=== PATIENT | male | born 1940 | race Caucasian/White ===

== ENCOUNTER 2017-07-29 12:53 | Emergency (ER) | payer MEDICARE, OTHER, SELFPAY | END 2017-07-29 15:03 | disposition home or self-care (01) | PROVIDERS: Emergency Provider Emergency Medicine; Family Provider Internal Medicine; PCP Internal Medicine; Visit Provider Emergency Medicine | DX: T82.838A Hemorrhage due to vascular prosthetic devices, implants and grafts, initial encounter (principal); D72.819 Decreased white blood cell count, unspecified; D69.6 Thrombocytopenia, unspecified; Z79.01 Long term (current) use of anticoagulants | CPT/HCPCS: 36415; 36430; 85025; 85610; 86850; 86900; 86901; 86965; 99058; 99283; P9033 ==

== ENCOUNTER → 2017-09-14 09:54 | Outpatient (CLI) | payer MEDICARE, OTHER, SELFPAY | PROVIDERS: Family Provider Internal Medicine; PCP Internal Medicine; Visit Provider Nurse Practitioner Gerontology | DX: C61 Malignant neoplasm of prostate (principal); Z53.9 Procedure and treatment not carried out, unspecified reason ==

== ENCOUNTER → 2017-09-18 08:59 | Outpatient (CLI) | payer MEDICARE, OTHER, SELFPAY ==
[2017-09-18 09:25] LABS: Add Manual Diff / Slide Review NO; Basophils Percent Auto 0.4 % (0-2); Eosinophils Percent Auto 1.1 % (2-4); Hematocrit 26.3 % (41-53); Hemoglobin 9.1 g/dL (13.5-17.5); Lymphocytes Percent Auto 17.3 % (25-40); Mean Corpuscular HGB Conc 34.7 % (30-36); Mean Corpuscular Hemoglobin 33.2 PG (26-34); Mean Corpuscular Volume 95.7 fL (80-100); Monocytes Percent Auto 4.8 % (3-14); Neutrophils Absolute Auto 3700 /uL (3000-5900); Neutrophils Percent Auto 76.4 % (50-75); Platelet Count 66 X10^3/uL (150-400); Red Blood Cell Count 2.74 X10^6/uL (4.5-5.9); Red Cell Distribution Width 14.7 % (11.6-14.8); White Blood Cell Count 4.8 X10^3/uL (4.5-11.0)
[2017-09-18 09:34] LABS: Alanine Aminotransferase 28 IU/L (21-72); Albumin 3.2 g/dL (3.5-5.0); Albumin Globulin Ratio 1.4 (1.0-2.8); Alkaline Phosphatase 66 U/L (38-126); Aspartate Aminotransferase 21 IU/L (17-59); Bilirubin Total 0.8 mg/dL (0.2-1.3); Blood Urea Nitrogen 24 mg/dL (9-20); Calcium 8.7 mg/dL (8.4-10.2); Carbon Dioxide 29 mmol/L (22-32); Chloride 101 mmol/L (98-107); Estimated Glomerular Filt Rate > 60.0 mL/min (>60); Globulin 2.3 g/dL (1.7-4.1); Glucose 183 mg/dL (80-110); HEMOLYSIS < 15 (0-50); Potassium 4.4 mmol/L (3.4-5.1); Sodium 139 mmol/L (137-145); Total Protein 5.5 g/dL (6.3-8.2)
--- NOTE | 2017-09-18 10:07 | PC.NURSE ---
Platelet count 66K.Reviewed with LAB SCIENTIST.Apparently between 50 and 75 K is a matos area for anti-coagulation.Pt to RTC tomm. To see Dr Rosa Harding would like to see platelet count above 75K and pt to have a face to face discussion with MD mcadams ; potential risks in light of thrombocytopenia and as his counts will drop again after his last treatment which is due tomm.PICC line is out.A midline cath could be used in the short term.
== END ==
PROVIDERS: Internal Medicine Hematology & Oncology; Family Provider Internal Medicine; PCP Internal Medicine; Visit Provider Nurse Practitioner Gerontology
DX: C34.90 Malignant neoplasm of unspecified part of unspecified bronchus or lung (principal); D69.6 Thrombocytopenia, unspecified
CPT/HCPCS: 36415; 80053; 85025

== ENCOUNTER 2017-09-24 13:14 | Emergency (ER) | payer MEDICARE, OTHER, SELFPAY ==
[2017-09-24 13:21] VITALS: BP 120/69; PULSE 95; RESP 20; TEMP 37.3; O2SAT 95
--- NOTE | 2017-09-24 13:47 | ED.FEVER ---
HPI - Fever General Chief Complaint: Fever Stated Complaint: WEAK,TEMPERATURE POOSIBLE CLOT IN CALF Time Seen by Provider: 09/24/17 13:44 History of Present Illness HPI Narrative: Patient is a 77-year-old male who presents with fever. Apparently they been taking at home they noted she had low-grade fever of 99-100 nothing over 100.4. 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 He also has and no left upper extremity DVT which they are not treating due to all low platelets. He has no productive cough no shortness of breath over no painful urination. His last chemo was 4 days ago and he also got a Neulasta shot. He has pain in his left lower leg he thinks that it may be a clot. It is really tender just on the varicose vein. No numbness or tingling. He does must be checked out. Related Data Home Medications Medication Instructions Recorded Confirmed carvedilol [Coreg] 25 mg PO BID #0 11/20/10 09/08/17 atorvastatin [Lipitor] 40 mg PO QDAY #0 03/21/17 09/08/17 folic acid 1 mg PO BID #0 04/08/17 09/08/17 ascorbic acid (vitamin C) 1,500 mg PO QDAY #0 06/01/17 09/19/17 calcium carbonate 1,200 mg PO Q DAY #0 06/01/17 09/08/17 cholecalciferol (vitamin D3) 2,000 iu PO QDAY #0 06/01/17 08/08/17 [Vitamin D3] losartan 50 mg PO BID #0 06/01/17 09/08/17 magnesium 200 mg PO Q DAY #0 06/01/17 09/08/17 multivitamin [Multiple Vitamins] 1 tab PO QDAY #0 06/01/17 09/08/17 minoxidil 2.5 mg PO QDAY #0 07/13/17 09/12/17 prednisone 2 mg PO BID #0 07/13/17 09/19/17 Bactrim DS 09/07/17 furosemide [Lasix] 40 mg PO DAILY 09/08/17 09/08/17 methotrexate sodium 10 mg PO QWEEK 09/12/17 09/12/17 Previous Rx's Medication Instructions Recorded abiraterone [Zytiga] 1,000 mg PO QDAY #120 tab 07/17/17 ondansetron [Zofran ODT] 4 mg SUBLINGUAL Q6HP PRN #30 odt 07/17/17 prednisone 5 mg PO BID #120 tab 07/17/17 esomeprazole magnesium [Nexium] 20 mg PO QDAY #30 cap 07/24/17 potassium chloride [K-Tab] 20 meq PO DAILY #30 tab 09/05/17 amoxicillin-pot clavulanate 1 tab PO BID #20 tab 09/24/17 [Augmentin] Allergies Allergy/AdvReac Type Severity Reaction Status Date / Time amlodipine [AMLODIPINE] AdvReac Unknown Verified 09/02/17 09:10 gemfibrozil [GEMFIBROZIL] AdvReac Unknown Verified 09/02/17 09:10 hydrochlorothiazide AdvReac Unknown Verified 09/02/17 09:10 [HYDROCHLOROTHIAZIDE] lisinopril [LISINOPRIL] AdvReac Unknown Verified 09/02/17 09:10 niacin [NIACIN] AdvReac Unknown Verified 09/02/17 09:10 Review of Systems Review of Systems All systems reviewed & are unremarkable except as noted in HPI and below Constitutional Denies body ache(s), Denies chills, Reports fever(s) and Reports weakness Cardiovascular Denies chest pain, Denies irregular heart rhythm, Denies lightheadedness, Denies palpitations, Denies dyspnea, Denies dyspnea on exertion and Denies orthopnea Respiratory Denies cough, Denies dyspnea, Denies dyspnea on exertion and Denies wheezing Gastrointestinal Gastrointestinal: Denies abdominal pain, Denies change in bowel habits, Denies diarrhea, Denies nausea and Denies vomiting Genitourinary Reports hematuria and Reports dysuria Musculoskeletal Denies back pain, Denies muscle weakness, Denies numbness and Denies tingling Integumentary/Breasts Denies pruritus, Denies erythema, Denies rash and Denies wounds Neurologic Denies numbness, Denies tingling and Reports weakness Endocrine Denies palpitations Allergic/Immunologic Denies wheezing Exam Initial Vital Signs Initial Vital Signs: Vital Signs Temperature 99.1 F 09/24/17 13:21 Pulse Rate 95 H 09/24/17 13:21 Respiratory Rate 20 09/24/17 13:21 Blood Pressure 120/69 09/24/17 13:21 Pulse Oximetry 95 09/24/17 13:21 GENERAL: Well-appearing, well-nourished and in no acute distress. HEENT: Head atraumatic,EOMI, pupils reactive, CARDIOVASCULAR: Regular rate and rhythm without murmurs, rubs or gallops. RESPIRATORY: Breath sounds equal bilaterally, no wheezes rales or rhonchi. ABDOMEN: Soft, nontender. Normoactive bowel sounds all 4 quadrants. No guarding or rebound. EXTREMITIES: Normal range of motion, no clubbing or edema. Neurovascularly intact. Left leg it is tender over a varicose vein no significant swelling no calf tenderness NEUROLOGICAL: Alert and oriented x4.Normal gait and speech. Cranial nerves II through XII grossly intact. SKIN: Warm, dry, no laceration, no petechiae, no rashes or lesions. Course Orders Ordered: ED Orders 09/24/17 14:08 XR chest 2V Stat 09/24/17 14:27 CBC [Complete Blood Count AUTO DIFF] Stat CMP [Comprehensive Metabolic Panel] Stat Lactate (Lactic Acid) Stat 09/24/17 14:38 Urine Culture Stat Urine Microscopic Stat 09/24/17 14:55 Blood Culture Stat 09/24/17 15:12 perip venous low extrem lt Stat Discontinued Medications Amoxicillin/Clavulanate Potassium (Augmentin 875-125 Mg) 1 tab PO NOW ONE Stop: 09/24/17 16:38 Last Admin: 09/24/17 16:54 Dose: 1 tab Sodium Chloride (Normal Saline 0.9%) 1,000 mls @ 1,000 mls/hr IV BOLUS ONE Stop: 09/24/17 15:10 Last Infusion: 09/24/17 16:29 Dose: 0 mls/hr Admin: 09/24/17 15:02 Dose: 1,000 mls/hr Vital Signs - 8 hr 09/24/17 13:21 09/24/17 14:38 09/24/17 16:32 Temperature 99.1 F 99.5 F Pulse Rate 95 H 84 94 H Respiratory Rate 20 18 16 Blood Pressure 120/69 Blood Pressure [Right Arm] 138/81 H 121/63 H Pulse Oximetry 95 97 94 09/24/17 17:04 Temperature Pulse Rate 56 L Respiratory Rate 18 Blood Pressure Blood Pressure [Right Arm] 128/63 H Pulse Oximetry 98 MDM - Fever Lab Data Result diagrams: 09/24/17 14:27 06/17/18 14:27 Lab Results 09/24/17 09/24/17 09/24/17 Range/Units 14:27 14:27 14:27 WBC 8.0 (4.5-11.0) X10^3/uL RBC 2.48 L (4.5-5.9) X10^6/uL Hgb 8.3 L (13.5-17.5) g/dL Hct 23.9 L (41-53) % MCV 96.4 (80-100) fL MCH 33.5 (26-34) PG MCHC 34.8 (30-36) % RDW 16.6 H (11.6-14.8) % Plt Count 75 L (150-400) X10^3/uL Neut % (Auto) Not Reportable Lymph % (Auto) Not Reportable Lawrence % (Auto) Not Reportable Eos % (Auto) Not Reportable Baso % (Auto) Not Reportable Total Counted 100 Seg Neutrophils % 88.0 H (38-70) % Band Neutrophils % 4.0 (3-7) % Lymphocytes % (Manual) 7.0 L (25-45) % Monocytes % (Manual) 1.0 L (2-11) % Neutrophils # (Manual) 7360 H (7648-1049) /uL RBC Morphology Not Reportable Anisocytosis 1+ H Sodium 136 L (137-145) mmol/L Potassium 4.1 (3.4-5.1) mmol/L Chloride 98 (98-107) mmol/L Carbon Dioxide 30 (22-32) mmol/L BUN 35 H (9-20) mg/dL Creatinine 0.90 (0.66-1.25) mg/dL Estimated GFR > 60.0 (>60) mL/min BUN/Creatinine Ratio 38.9 H (6-22) Glucose 158 H (80-110) mg/dL Lactate 1.7 (0.7-2.1) mmol/L Calcium 8.3 L (8.4-10.2) mg/dL Total Bilirubin 1.7 H (0.2-1.3) mg/dL AST 17 (17-59) IU/L ALT 27 (21-72) IU/L Alkaline Phosphatase 71 (38-126) U/L Total Protein 5.5 L (6.3-8.2) g/dL Albumin 3.1 L (3.5-5.0) g/dL Globulin 2.4 (1.7-4.1) g/dL Albumin/Globulin Ratio 1.3 (1.0-2.8) Urine RBC (0-5/HPF) Urine WBC (0-5/HPF) Ur Squamous Epith Cells Urine Bacteria (None) Ur Culture Indicated? Micro UA Comment 09/24/17 Range/Units 14:38 WBC (4.5-11.0) X10^3/uL RBC (4.5-5.9) X10^6/uL Hgb (13.5-17.5) g/dL Hct (41-53) % MCV (80-100) fL MCH (26-34) PG MCHC (30-36) % RDW (11.6-14.8) % Plt Count (150-400) X10^3/uL Neut % (Auto) Lymph % (Auto) Lawrence % (Auto) Eos % (Auto) Baso % (Auto) Total Counted Seg Neutrophils % (38-70) % Band Neutrophils % (3-7) % Lymphocytes % (Manual) (25-45) % Monocytes % (Manual) (2-11) % Neutrophils # (Manual) (2172-8867) /uL RBC Morphology Anisocytosis Sodium (137-145) mmol/L Potassium (3.4-5.1) mmol/L Chloride (98-107) mmol/L Carbon Dioxide (22-32) mmol/L BUN (9-20) mg/dL Creatinine (0.66-1.25) mg/dL Estimated GFR (>60) mL/min BUN/Creatinine Ratio (6-22) Glucose (80-110) mg/dL Lactate (0.7-2.1) mmol/L Calcium (8.4-10.2) mg/dL Total Bilirubin (0.2-1.3) mg/dL AST (17-59) IU/L ALT (21-72) IU/L Alkaline Phosphatase (38-126) U/L Total Protein (6.3-8.2) g/dL Albumin (3.5-5.0) g/dL Globulin (1.7-4.1) g/dL Albumin/Globulin Ratio (1.0-2.8) Urine RBC 1-5/hpf (0-5/HPF) Urine WBC 5-10/hpf H (0-5/HPF) Ur Squamous Epith Cells 0-1 /hpf Urine Bacteria Many (>30) H (None) Ur Culture Indicated? Specimen cultured Micro UA Comment Not Reportable Imaging Data Chest x-ray: Radiologist's impression: PROCEDURE: XR CHEST 2V INDICATIONS: fever with lung cancer TECHNIQUE: 2 views of the chest were acquired. COMPARISON: [facility], CHEST 2 VIEW, 08/07/2017, 10:12. FINDINGS: Surgical changes and devices: None. Lungs and pleura: No pleural effusions or pneumothorax. Mild patchy bibasilar and perihilar opacities bilaterally. Mediastinum: Mediastinal contours are normal. Heart size is normal. Bones and chest wall: No suspicious bony abnormalities. Soft tissues appear unremarkable. IMPRESSION: Bilateral pneumonia. Venous US: Radiologist's impression: PROCEDURE: XR CHEST 2V INDICATIONS: fever with lung cancer TECHNIQUE: 2 views of the chest were acquired. COMPARISON: [facility], CHEST 2 VIEW, 08/07/2017, 10:12. FINDINGS: Surgical changes and devices: None. Lungs and pleura: No pleural effusions or pneumothorax. Mild patchy bibasilar and perihilar opacities bilaterally. Mediastinum: Mediastinal contours are normal. Heart size is normal. Bones and chest wall: No suspicious bony abnormalities. Soft tissues appear unremarkable. IMPRESSION: Bilateral pneumonia. [facility] Narrative Medical decision making narrative: Patient is not clinically have pneumonia. He is not actually even had fever. He was weak last night and had been around some sick people of her half. He really feels fine and is asking to go home. He does have a UTI and symptoms it is resistant to Levaquin but sensitive to Augmentin. Patient appears in nontoxic is alert he is oriented he is not neutropenic. He is not hypoxic. Discussed with both and patient warning signs of when to return to the ED. They both understand and agree. He is scheduled to have blood drawn with oncology in 2 days but not scheduled to see a provider. Discharge Plan Departure Patient Disposition: Home, Self-Care Clinical Impression: UTI (urinary tract infection) Discharge Date/Time: 09/24/17 17:05 Interventions: ED Discharge Assessment Last Done: 09/24/17 17:05 Instructions: DI for Urinary Tract Infection (UTI), DI for Neutropenic Fever Activity Restrictions/Additional Instructions: *You have been diagnosed with UTI, possible pneumonia *What to do: You do not have signs and symptoms consistent with pneumonia other your x-ray did show bilateral pneumonia. Urine is also positive for infection. Blood work is reassuring today no sign of neutropenia. *Continue to take medications as directed Augmentin twice a day for 10 days-this has been faxed to [facility] in [place] *Follow up with your primary care provider in 2-3 days, follow up with Oncology, please see a provider this week *Return to ER if you should have increased confusion, increasing weakness, temperature more than 100.4 or any new, worsening or concerning symptoms Prescriptions: New amoxicillin-pot clavulanate [Augmentin] 875-125 mg tablet 1 tab PO BID Qty: 20 RF: 0 No Action carvedilol [Coreg] 25 MG tablet 25 mg PO BID Qty: 0 RF: 0 atorvastatin [Lipitor] 40 MG tablet 40 mg PO QDAY Qty: 0 RF: 0 folic acid 1 MG tablet 1 mg PO BID Qty: 0 RF: 0 losartan 50 MG tablet 50 mg PO BID Qty: 0 RF: 0 magnesium 200 MG tablet 200 mg PO Q DAY Qty: 0 RF: 0 cholecalciferol (vitamin D3) [Vitamin D3] 2,000 UNIT capsule 2,000 iu PO QDAY Qty: 0 RF: 0 multivitamin [Multiple Vitamins] 1 EACH tablet 1 tab PO QDAY Qty: 0 RF: 0 calcium carbonate 600 MG tablet 1,200 mg PO Q DAY Qty: 0 RF: 0 ascorbic acid (vitamin C) 500 MG tablet 1,500 mg PO QDAY Qty: 0 RF: 0 prednisone 1 MG tablet 2 mg PO BID Qty: 0 RF: 0 minoxidil 2.5 MG tablet 2.5 mg PO QDAY Qty: 0 RF: 0 prednisone 5 MG tablet 5 mg PO BID Qty: 120 RF: 2 ondansetron [Zofran ODT] 4 MG tablet,disintegrating 4 mg Sublingual Q6HP PRNQty: 30 RF: 0 abiraterone [Zytiga] 250 MG tablet 1,000 mg PO QDAY Qty: 120 RF: 3 esomeprazole magnesium [Nexium] 20 MG capsule,delayed release(DR/EC) 20 mg PO QDAY Qty: 30 RF: 0 potassium chloride [K-Tab] 20 mEq Tablet Extended Release 20 meq PO DAILY Qty: 30 RF: 0 Bactrim DS RF: 0 furosemide [Lasix] 40 mg Tablet 40 mg PO DAILY RF: 0 methotrexate sodium 2.5 mg Tablet 10 mg PO QWEEK RF: 0
--- NOTE | 2017-09-24 14:08 | DI.RAD.S_ITS ---
PROCEDURE: XR CHEST 2V INDICATIONS: fever with lung cancer TECHNIQUE: 2 views of the chest were acquired. COMPARISON: [facility], , CHEST 2 VIEW, 08/07/2017, 10:12. FINDINGS: Surgical changes and devices: None. Lungs and pleura: No pleural effusions or pneumothorax. Mild patchy bibasilar and perihilar opacities bilaterally. Mediastinum: Mediastinal contours are normal. Heart size is normal. Bones and chest wall: No suspicious bony abnormalities. Soft tissues appear unremarkable. IMPRESSION: Bilateral pneumonia. Dictated by: Lianna Bowen M.D. on 09/24/2017 at 14:45 Approved by: Lianna Bowen M.D. on 09/24/2017 at 14:46
[2017-09-24 14:38] VITALS: BP 138/81; PULSE 84; RESP 18; TEMP 37.5; O2SAT 97
[2017-09-24 14:38] LABS: Hemoglobin 8.3 g/dL (13.5-17.5); Mean Corpuscular HGB Conc 34.8 % (30-36); Mean Corpuscular Hemoglobin 33.5 PG (26-34); Mean Corpuscular Volume 96.4 fL (80-100); Platelet Count 75 X10^3/uL (150-400); Red Blood Cell Count 2.48 X10^6/uL (4.5-5.9); Red Cell Distribution Width 16.6 % (11.6-14.8)
[2017-09-24 14:39] LABS: Add Manual Diff / Slide Review YES; Hematocrit 23.9 % (41-53)
[2017-09-24 14:45] LABS: Lactate (Lactic Acid) 1.7 mmol/L (0.7-2.1)
[2017-09-24 14:46] LABS: Alanine Aminotransferase 27 IU/L (21-72); Albumin 3.1 g/dL (3.5-5.0); Albumin Globulin Ratio 1.3 (1.0-2.8); Alkaline Phosphatase 71 U/L (38-126); Aspartate Aminotransferase 17 IU/L (17-59); BUN Creatinine Ratio 38.9 (6-22); Bilirubin Total 1.7 mg/dL (0.2-1.3); Blood Urea Nitrogen 35 mg/dL (9-20); Calcium 8.3 mg/dL (8.4-10.2); Carbon Dioxide 30 mmol/L (22-32); Chloride 98 mmol/L (98-107); Estimated Glomerular Filt Rate > 60.0 mL/min (>60); Globulin 2.4 g/dL (1.7-4.1); Glucose 158 mg/dL (80-110); HEMOLYSIS < 15 (0-50); Potassium 4.1 mmol/L (3.4-5.1); Sodium 136 mmol/L (137-145); Total Protein 5.5 g/dL (6.3-8.2)
[2017-09-24 14:55] LABS: Bacteria Urine Many (>30); Culture Indicated Urine Specimen Cultured; RBC Urine 1-5/HPF (0-5/HPF); Squamous Epithelial Cell Urine 0-1 /HPF; WBC Urine 5-10/HPF (0-5/HPF)
[2017-09-24] MEDS: SODIUM CHLORIDE 0.9% 1,000 ML 1000 ML IV (15:02)
--- NOTE | 2017-09-24 15:12 | DI.US.S_ITS ---
PROCEDURE: US PERIPH VENOUS LOW EXTREM LT INDICATIONS: pain hx of clot with cancer TECHNIQUE: Real-time imaging, as well as color and pulse Doppler interrogation, were performed of the lower extremity deep veins from the inguinal ligament to the popliteal fossa. COMPARISON: None. FINDINGS: The deep veins are normally compressible, and free of intraluminal thrombus. Color and pulse Doppler demonstrate normal phasic intraluminal flow. There is normal augmentation response to distal compression maneuver. IMPRESSION: No evidence of left lower extremity DVT. Dictated by: Lianna Bowen M.D. on 09/24/2017 at 16:01 Approved by: Lianna Bowen M.D. on 09/24/2017 at 16:01
[2017-09-24 15:15] LABS: Neutrophils Absolute Manual 7360 /uL (3000-5900); Total Cells Counted 100
[2017-09-24 15:18] LABS: Anisocytosis 1+
[2017-09-24 16:32] VITALS: BP 121/63; PULSE 94; RESP 16; O2SAT 94
[2017-09-24] MEDS: AMOXICILLIN/CLAV 875/125 MG 1 TAB PO (16:54)
[2017-09-24 17:04] VITALS: BP 128/63; PULSE 56; RESP 18; O2SAT 98
== END 2017-09-24 17:05 | disposition home or self-care (01) ==
PROVIDERS: Emergency Provider Emergency Medicine; Family Provider Internal Medicine; PCP Internal Medicine
DX: R50.9 Fever, unspecified (principal)
CPT/HCPCS: 36415; 36591; 71046; 80053; 81003; 81015; 83605; 85025; 87040; 87077; 87086; 87186; 93971; 99283

== ENCOUNTER 2017-09-24 18:19 | Inpatient (IN) | payer MEDICARE, OTHER, SELFPAY ==
[2017-09-24] VITALS (9 sets, daily range): BP systolic 109–117; BP diastolic 56–75; PULSE 72–109; RESP 8–28; TEMP 37.6–39.4; O2SAT 90–98; BMI 29.9
--- NOTE | 2017-09-24 18:54 | DI.RAD.S_ITS ---
PROCEDURE: XR CHEST 1V INDICATIONS: Bilateral PNA - interval change? TECHNIQUE: One view of the chest was acquired. COMPARISON: [facility], CR, XR CHEST 2V, 09/24/2017, 14:03. FINDINGS: Surgical changes and devices: None. Lungs and pleura: No pleural effusions or pneumothorax. No change in mild patchy bilateral pulmonary opacities. Mediastinum: Mediastinal contours appear normal. Heart size is enlarged. Bones and chest wall: No suspicious bony lesions. Overlying soft tissues appear unremarkable. IMPRESSION: No change in mild patchy bilateral pneumonia. Dictated by: Lianna Bowen M.D. on 09/24/2017 at 19:17 Approved by: Lianna Bowen M.D. on 09/24/2017 at 19:17
[2017-09-24 19:35] LABS: INR 1.1 (0.9-1.3); Prothrombin Time 12.1 SECONDS (10.1-12.7)
[2017-09-24 19:38] LABS: Hemoglobin 7.3 g/dL (13.5-17.5); Lactate (Lactic Acid) 1.6 mmol/L (0.7-2.1); Mean Corpuscular HGB Conc 34.8 % (30-36); Mean Corpuscular Hemoglobin 33.6 PG (26-34); Mean Corpuscular Volume 96.7 fL (80-100); Platelet Count 65 X10^3/uL (150-400); Red Blood Cell Count 2.17 X10^6/uL (4.5-5.9); White Blood Cell Count 5.5 X10^3/uL (4.5-11.0)
[2017-09-24 19:39] LABS: Add Manual Diff / Slide Review YES; BUN Creatinine Ratio 41.3 (6-22); Bilirubin Total 1.7 mg/dL (0.2-1.3); Blood Urea Nitrogen 33 mg/dL (9-20); Calcium 7.7 mg/dL (8.4-10.2); Carbon Dioxide 26 mmol/L (22-32); Chloride 101 mmol/L (98-107); Estimated Glomerular Filt Rate > 60.0 mL/min (>60); Glucose 206 mg/dL (80-110); HEMOLYSIS < 15 (0-50); Hematocrit 20.9 % (41-53); Sodium 134 mmol/L (137-145)
[2017-09-24 20:27] LABS: Procalcitonin 0.12 ng/mL (<0.5)
[2017-09-24 20:58] LABS: Neutrophils Absolute Manual 5005 /uL (3000-5900); Total Cells Counted 100
[2017-09-24 20:59] LABS: RBC Morphology Normal Morphology
--- NOTE | 2017-09-24 21:06 | ED.FEVER ---
HPI - Fever General Chief Complaint: Fever Stated Complaint: FEVER IS INCREASING HE STATES Time Seen by Provider: 09/24/17 18:54 History of Present Illness HPI Narrative: HPI 77 y/o male with metastatic prostate CA (lung, bone) and lung small cell carcinoma (s/p radiation x 30 and chemo x 4, now complete) presents with worsening weakness and fever after being evaluated earlier in the day for similar but lesser symptoms and was noted to have a possible UTI with questionable bilateral pneumonia (radiographically apparent, no further corroborating symptoms appreciate) and was placed on Augmentin before being discharged. Patient notes that he has been weakened febrile for one day. M/S/F/SocHx notable for: please see HPI; remainder reviewed with patient and in chart. ROS: Negative constitutional, eye, cardiovascular, pulmonary, GI, , MSK, skin, neurologic, psychiatric, endocrine unless noted in the HPI. Exam Gen: pleasant, nontoxic-appearing, appears mildly weak, not in extremis. HEENT: NC, AT, PEERL, EOMI, neck supple, no goiter appreciated. Resp: Clear to auscultation bilaterally, normal work of breathing, no accessory muscle usage. Card: Regular rate and rhythm with no murmurs, rubs, or gallops, extremities warm and well perfused. GI: Non-tender to palpation throughout all quadrants, no focal tenderness at McBurney's point, negative Menendez's sign, non-distended, no rebound or guarding. : No suprapubic tenderness to palpation. MSK: No visible deformities, strength and tone without visually appreciable deficit. Skin: normal color, no visible lesions. Neuro: AOx3, no facial asymmetry, vision and hearing WNL. Psych: Mood and affect appropriate. Labs / Imaging (pertinent): WBC 5.5, segment neutrophils 88%, PLT 65, INR 1.1, Hb 7.3, Na 134, K 4.0, Bilirubin 1.7, Lactate 1.6, troponin pending, procalcitonin 0.12, FOBT pending. UA - many bacteria. CXR: no change in mild patchy bilateral pneumonia. MDM Previous chart, nursing note, labs, imaging, and vitals reviewed. A: 77 y/o male with metastatic prostate CA (lung, bone) and lung small cell carcinoma (s/p radiation x 30 and chemo x 4, now complete) presents with worsening weakness and fever after being evaluated earlier in the day for similar but lesser symptoms and was noted to have a possible UTI with questionable bilateral pneumonia (radiographically apparent, no further corroborating symptoms appreciate) and was placed on Augmentin before being discharged. Evaluation: [Patient meets [facility] sepsis screening guidelines with a suspected urinary versus pulmonary source. Infectious Source: * Pulmonary: bilateral patchy infiltrate on chest x-ray, however patient's without cough or Procalcitonin elevation, this raises the possibility that the patient does not have a bacterial pneumonia. * Urine: UA consistent with colonization versus active infection. * Skin: Consider a cutaneous source unlikely given absence of significant infection appreciated on exam. * [employer]PA[employer] SUPERVISOR: Doubt given the lack of meningismus, petechia, and the overall clinical presentation. * Abdomen: Doubt given the non-tender abdomen and an alternate source. * Spine: Given the absence of back pain and an alternate source further investigation for possible epidural abscess, spinal osteomyelitis, or discitis are not currently warranted. * Lines: Patient without indwelling lines/ports. * Patient with worsening anemia, FOBT pending, type and screen ordered. Transfusion held. Resuscitation: Blood cultures, 30 cc/kg NS fluid bolus, and cefipime and vancomycin ordered with the initial evaluation. Disposition: Admitted for further care. Impression: sepsis, suspected pulmonary versus urinary source. (please reference below for remainder of encounter information) Critical Care Time Organ system(s): Cardiopulmonary, vascular, [employer]PA[employer] SUPERVISOR, Renal Intervention: Assessment of the patient, interpretation of studies, communication related to patient care. Time: 30 minutes were spent directly related to patient care exclusive of separately billed procedures Related Data Home Medications Medication Instructions Recorded Confirmed carvedilol [Coreg] 25 mg PO BID #0 11/20/10 09/08/17 atorvastatin [Lipitor] 40 mg PO QDAY #0 03/21/17 09/08/17 folic acid 1 mg PO BID #0 04/08/17 09/08/17 ascorbic acid (vitamin C) 1,500 mg PO QDAY #0 06/01/17 09/19/17 calcium carbonate 1,200 mg PO Q DAY #0 06/01/17 09/08/17 cholecalciferol (vitamin D3) 2,000 iu PO QDAY #0 06/01/17 08/08/17 [Vitamin D3] losartan 50 mg PO BID #0 06/01/17 09/08/17 magnesium 200 mg PO Q DAY #0 06/01/17 09/08/17 multivitamin [Multiple Vitamins] 1 tab PO QDAY #0 06/01/17 09/08/17 minoxidil 2.5 mg PO QDAY #0 07/13/17 09/12/17 prednisone 2 mg PO BID #0 07/13/17 09/19/17 Bactrim DS 09/07/17 furosemide [Lasix] 40 mg PO DAILY 09/08/17 09/08/17 methotrexate sodium 10 mg PO QWEEK 09/12/17 09/12/17 Previous Rx's Medication Instructions Recorded abiraterone [Zytiga] 1,000 mg PO QDAY #120 tab 07/17/17 ondansetron [Zofran ODT] 4 mg SUBLINGUAL Q6HP PRN #30 odt 07/17/17 prednisone 5 mg PO BID #120 tab 07/17/17 esomeprazole magnesium [Nexium] 20 mg PO QDAY #30 cap 07/24/17 potassium chloride [K-Tab] 20 meq PO DAILY #30 tab 09/05/17 amoxicillin-pot clavulanate 1 tab PO BID #20 tab 09/24/17 [Augmentin] Allergies Allergy/AdvReac Type Severity Reaction Status Date / Time amlodipine [AMLODIPINE] AdvReac Unknown Verified 09/02/17 09:10 gemfibrozil [GEMFIBROZIL] AdvReac Unknown Verified 09/02/17 09:10 hydrochlorothiazide AdvReac Unknown Verified 09/02/17 09:10 [HYDROCHLOROTHIAZIDE] lisinopril [LISINOPRIL] AdvReac Unknown Verified 09/02/17 09:10 niacin [NIACIN] AdvReac Unknown Verified 09/02/17 09:10 Exam Initial Vital Signs Initial Vital Signs: Vital Signs Temperature 102.9 F H 09/24/17 18:43 Pulse Rate 109 H 09/24/17 18:43 Respiratory Rate 20 09/24/17 18:43 Blood Pressure 117/75 09/24/17 18:43 Pulse Oximetry 98 09/24/17 18:43 Course Orders Ordered: ED Orders 09/24/17 14:53 Packed Cells Stat Type and Screen Stat 09/24/17 18:54 XR chest 1V Stat 09/24/17 19:15 Basic Metabolic Panel Stat Bilirubin Total Stat Complete Blood Count AUTO DIFF Stat Lactate (Lactic Acid) Stat Procalcitonin Stat Prothrombin Time INR Stat Discontinued Medications Cefepime HCl 2 gm/ Sodium (Chloride) 100 mls @ 200 mls/hr IV NOW ONE Stop: 09/24/17 18:55 Sodium Chloride (Normal Saline 0.9%) 1,000 mls @ 1,000 mls/hr IV BOLUS ONE Stop: 09/24/17 19:53 Vancomycin HCl 1,500 mg/ (Sodium Chloride) 500 mls @ 333.333 mls/hr IV NOW ONE Stop: 09/24/17 18:55 Vital Signs - 8 hr 09/24/17 18:43 09/24/17 20:29 09/24/17 21:02 Temperature 102.9 F H 99.7 F H Pulse Rate 109 H 96 H Respiratory Rate 20 8 L Blood Pressure 117/75 Blood Pressure [Right Arm] 112/65 Pulse Oximetry 98 96 MDM - Fever Lab Data Result diagrams: 09/24/17 19:15 09/24/17 19:15 Lab Results 09/24/17 09/24/17 09/24/17 Range/Units 14:53 19:15 19:15 WBC 5.5 (4.5-11.0) X10^3/uL RBC 2.17 L (4.5-5.9) X10^6/uL Hgb 7.3 L (13.5-17.5) g/dL Hct 20.9 L* (41-53) % MCV 96.7 (80-100) fL MCH 33.6 (26-34) PG MCHC 34.8 (30-36) % RDW 16.0 H (11.6-14.8) % Plt Count 65 L (150-400) X10^3/uL Neut % (Auto) Not Reportable Lymph % (Auto) Not Reportable [place] % (Auto) Not Reportable Eos % (Auto) Not Reportable Baso % (Auto) Not Reportable Total Counted 100 Seg Neutrophils % 85.0 H (38-70) % Band Neutrophils % 6.0 (3-7) % Lymphocytes % (Manual) 8.0 L (25-45) % Monocytes % (Manual) 1.0 L (2-11) % Neutrophils # (Manual) 5005 (3844-2971) /uL RBC Morphology Normal morphology PT 12.1 (10.1-12.7) SECONDS INR 1.1 (0.9-1.3) Sodium (137-145) mmol/L Potassium (3.4-5.1) mmol/L Chloride (98-107) mmol/L Carbon Dioxide (22-32) mmol/L BUN (9-20) mg/dL Creatinine (0.66-1.25) mg/dL Estimated GFR (>60) mL/min BUN/Creatinine Ratio (6-22) Glucose (80-110) mg/dL Lactate (0.7-2.1) mmol/L Calcium (8.4-10.2) mg/dL Total Bilirubin (0.2-1.3) mg/dL Procalcitonin (<0.5) ng/mL Blood Type O Positive Antibody Screen Negative Crossmatch See Detail 09/24/17 09/24/17 09/24/17 Range/Units 19:15 19:15 19:15 WBC (4.5-11.0) X10^3/uL RBC (4.5-5.9) X10^6/uL Hgb (13.5-17.5) g/dL Hct (41-53) % MCV (80-100) fL MCH (26-34) PG MCHC (30-36) % RDW (11.6-14.8) % Plt Count (150-400) X10^3/uL Neut % (Auto) Lymph % (Auto) [place] % (Auto) Eos % (Auto) Baso % (Auto) Total Counted Seg Neutrophils % (38-70) % Band Neutrophils % (3-7) % Lymphocytes % (Manual) (25-45) % Monocytes % (Manual) (2-11) % Neutrophils # (Manual) (9139-5259) /uL RBC Morphology PT (10.1-12.7) SECONDS INR (0.9-1.3) Sodium 134 L (137-145) mmol/L Potassium 4.0 (3.4-5.1) mmol/L Chloride 101 (98-107) mmol/L Carbon Dioxide 26 (22-32) mmol/L BUN 33 H (9-20) mg/dL Creatinine 0.80 (0.66-1.25) mg/dL Estimated GFR > 60.0 (>60) mL/min BUN/Creatinine Ratio 41.3 H (6-22) Glucose 206 H (80-110) mg/dL Lactate 1.6 (0.7-2.1) mmol/L Calcium 7.7 L (8.4-10.2) mg/dL Total Bilirubin 1.7 H (0.2-1.3) mg/dL Procalcitonin 0.12 (<0.5) ng/mL Blood Type Antibody Screen Crossmatch Discharge Plan Departure Prescriptions: No Action carvedilol [Coreg] 25 MG tablet 25 mg PO BID Qty: 0 RF: 0 atorvastatin [Lipitor] 40 MG tablet 40 mg PO QDAY Qty: 0 RF: 0 folic acid 1 MG tablet 1 mg PO BID Qty: 0 RF: 0 losartan 50 MG tablet 50 mg PO BID Qty: 0 RF: 0 magnesium 200 MG tablet 200 mg PO Q DAY Qty: 0 RF: 0 cholecalciferol (vitamin D3) [Vitamin D3] 2,000 UNIT capsule 2,000 iu PO QDAY Qty: 0 RF: 0 multivitamin [Multiple Vitamins] 1 EACH tablet 1 tab PO QDAY Qty: 0 RF: 0 calcium carbonate 600 MG tablet 1,200 mg PO Q DAY Qty: 0 RF: 0 ascorbic acid (vitamin C) 500 MG tablet 1,500 mg PO QDAY Qty: 0 RF: 0 prednisone 1 MG tablet 2 mg PO BID Qty: 0 RF: 0 minoxidil 2.5 MG tablet 2.5 mg PO QDAY Qty: 0 RF: 0 prednisone 5 MG tablet 5 mg PO BID Qty: 120 RF: 2 ondansetron [Zofran ODT] 4 MG tablet,disintegrating 4 mg Sublingual Q6HP PRNQty: 30 RF: 0 abiraterone [Zytiga] 250 MG tablet 1,000 mg PO QDAY Qty: 120 RF: 3 esomeprazole magnesium [Nexium] 20 MG capsule,delayed release(DR/EC) 20 mg PO QDAY Qty: 30 RF: 0 potassium chloride [K-Tab] 20 mEq Tablet Extended Release 20 meq PO DAILY Qty: 30 RF: 0 Bactrim DS RF: 0 furosemide [Lasix] 40 mg Tablet 40 mg PO DAILY RF: 0 methotrexate sodium 2.5 mg Tablet 10 mg PO QWEEK RF: 0 amoxicillin-pot clavulanate [Augmentin] 875-125 mg tablet 1 tab PO BID Qty: 20 RF: 0
[2017-09-24] MEDS: SODIUM CHLORIDE 0.9% 1,000 ML 1000 ML IV (21:09)
[2017-09-24] MEDS: CEFEPIME 2 GM in SODIUM CHLORIDE 0.9% 100 ML 200 ML IV (21:10)
[2017-09-24] MEDS: VANCOMYCIN 1,500 MG in SODIUM CHLORIDE 0.9% 500 ML 333.333 ML IV (22:01)
--- NOTE | 2017-09-24 23:09 | PC.NURSE ---
Pt to room from ER. Generalized weakness. Able to stand pivot transfer to bed. Pt S.O. at bedside, able to assist with admission question. Pt 91% on RA. Hx of sleep apnea, placed on 2L. Temp 100.6 orally. Oriented to room and routine, Call light in reach.
[2017-09-25] VITALS (19 sets, daily range): BP systolic 94–142; BP diastolic 41–67; PULSE 78–876; RESP 16–22; TEMP 36.9–38.6; O2SAT 92–96; BMI 29.9
--- NOTE | 2017-09-25 | DI.CT.S_ITS ---
PROCEDURE: CT CHEST WO CON INDICATIONS: pneumonia, lung cancer TECHNIQUE: Noncontrast 5 mm thick sections acquired from the pulmonary apices to the posterior costophrenic angles. 7 mm thick coronal and sagittal MIP reformats were then acquired. For radiation dose reduction, the following was used: automated exposure control, adjustment of mA and/or kV according to patient size. COMPARISON: [facility], [place], CT [place], 08/01/2017, 15:58. [facility], [place], PET NECK TO MID THIGH, 07/28/2017, 9:54. [facility], [place], CT [place], 07/11/2017, 11:12. [facility], CT, CHEST/ABD/PEL WITH CONTRAST, 07/10/2017, 9:19. [place], [place], BONE SCAN WHOLE BODY, 05/25/2017, 12:54. [facility], CT, CHEST/ABD/PEL WITH CONTRAST, 05/25/2017, 10:54. FINDINGS: Image quality: Diagnostic. Lungs and pleura: There is a very small left-sided pleural effusion. No significant right-sided pleural effusion is identified. The patient's known right lingular mass is not clearly evident on the current examination. However, there are areas of mild consolidation within the lingula with additional areas of tree in bud nodularity. A similar appearance is noted involving anterior lower aspect of the right upper lobe. There also is a similar appearance evident within the left lower lobe. No new lung masses are evident. There is no pneumothorax. Mediastinum: Heart size is normal. No pericardial effusion. No mediastinal adenopathy by size criteria. Thoracic aorta and central pulmonary arteries are normal in size. Coronary and aortic atherosclerosis is noted. Esophagus is normal in caliber. There is a small hiatal hernia.. Bones and chest wall: Prominent sclerosis is identified involving the right side of scapula, including the glenoid and the acromion. No definite additional areas of bone sclerosis are evident. No vertebral body compression fractures. No axillary or supraclavicular adenopathy by size criteria. Thyroid gland is not enlarged. Abdomen: The included portions of the upper abdomen are similar to the previous exams. No perinephric edema is incidentally noted. There is diagnostic IMPRESSION: 1. Patient's known uterine mass is not readily apparent on this examination, which likely is related to interval decrease in size of this mass and may be partly obscured by adjacent atelectasis. No new lung masses or definite nodules. 2. Ground glass attenuation with tree in bud nodularity within the right upper lobe and lingula is suspicious for an atypical pneumonia. 3. Trace left-sided pleural effusion. 4. Sclerosis of the right scapula is suggestive of metastatic disease. No additional areas of bony sclerosis. 5. Small hiatal hernia. 6. Coronary and aortic atherosclerosis. Dictated by: Sundar Bishop M.D. on 09/25/2017 at 9:56 Approved by: Sundar Bishop M.D. on 09/25/2017 at 10:06
--- NOTE | 2017-09-25 06:52 | PC.NURSE ---
Patient dozed intermittently throughout night, Temp 99.8 and 99.4, skin moist, pale. SR 80s-90s, RR 16-24, SpO2 >92% on 2L, no cough or respiratory distress. Vancomycin infused. Notified Dr Aguilera at 0630 when SO brought in patient's own Zytiga and requested that he be able to take it before breakfast. Order obtained for patient's own med allow with Tylenol for headache and a regular diet.
[2017-09-25] MEDS: ACETAMINOPHEN 325 MG TABLET 650 MG PO ×2 (07:49→16:14)
[2017-09-25] MEDS: ABIRATERONE PO (08:05)
[2017-09-25] MEDS: ASCORBIC ACID 500 MG TABLET 1500 MG PO (09:40)
[2017-09-25] MEDS: CHOLECALCIFEROL (VITAMIN D3) 1,000 UNIT TABLET 1000 UNIT PO (09:41)
[2017-09-25] MEDS: MAGNESIUM OXIDE 400 MG TABLET 200 MG PO (09:41)
[2017-09-25] MEDS: CARVEDILOL 25 MG TABLET PO (09:41)
[2017-09-25] MEDS: CALCIUM CARBONATE 600 MG TABLET 1200 MG PO (09:41)
[2017-09-25] MEDS: predniSONE 5 MG TABLET PO ×2 (09:41→21:41)
[2017-09-25] MEDS: MULTIVITAMIN 1 TABLET 1 TAB PO (09:41)
[2017-09-25] MEDS: FOLIC ACID 1 MG TABLET PO (09:41)
--- NOTE | 2017-09-25 09:43 | P.HP_ITS ---
History of Present Illness Date Patient Seen: 09/25/17 Time Patient Seen: 09:32 Chief complaint: FEVER IS INCREASING HE STATES Narrative: 77-year-old male with it is small cell lung cancer and now metastatic prostate cancer presents with fever cough and recent history of urinary infection. He last received chemotherapy around the 19 of September. He started having fever feeling weak and came into the emergency room then developed symptoms of a cough once once he was here. He was on antibiotics in the last few weeks on 2 different occasions for urinary infection he has also had increasing urinary symptoms over the past 24 hr of burning and difficulty with urination. Patient History Medical History 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) Thrombocytopenia (Chronic) Leukopenia (Chronic) Small cell lung cancer (Chronic) UTI (urinary tract infection) (Chronic) Kidney stone (Acute) Family & Social History Social History: household members significant other Prior Living Arrangements Apartment/Condo Safety & Behavioral: Feels Safe in Current Yes Environment Been Physically Hurt or No Threatened By a Person Suicidal Ideation Description None Suicide Plan Description No Plan Tobacco & Substance use: Tobacco type cigarettes Smoking Status Former smoker alcohol intake never Substance Use Type does not use Meds Home Medications Medication Instructions Recorded Confirmed Type carvedilol [Coreg] 25 mg PO BID #0 11/20/10 09/24/17 History atorvastatin [Lipitor] 40 mg PO QDAY #0 03/21/17 09/24/17 History folic acid 1 mg PO BID #0 04/08/17 09/24/17 History ascorbic acid (vitamin C) 1,500 mg PO QDAY #0 06/01/17 09/24/17 History calcium carbonate 1,200 mg PO Q DAY #0 06/01/17 09/24/17 History cholecalciferol (vitamin D3) 2,000 iu PO QDAY #0 06/01/17 09/24/17 History [Vitamin D3] magnesium 200 mg PO Q DAY #0 06/01/17 09/24/17 History multivitamin [Multiple Vitamins] 1 tab PO QDAY #0 06/01/17 09/25/17 History abiraterone [Zytiga] 1,000 mg PO QDAY #120 tab 07/17/17 09/24/17 Rx prednisone 5 mg PO BID #120 tab 07/17/17 09/24/17 Rx potassium chloride [K-Tab] 20 meq PO DAILY #30 tab 09/05/17 09/24/17 Rx furosemide [Lasix] 40 mg PO DAILY PRN 09/08/17 09/24/17 History methotrexate sodium 10 mg PO QWEEK 09/12/17 09/24/17 History amoxicillin-pot clavulanate 1 tab PO BID #20 tab 09/24/17 09/24/17 Rx [Augmentin] ondansetron [Zofran ODT] 4 mg SUBLINGUAL Q6HP PRN 09/24/17 09/24/17 History Allergies Allergy/AdvReac Type Severity Reaction Status Date / Time niacin [NIACIN] AdvReac Severe Hypotension Verified 09/24/17 22:50 amlodipine [AMLODIPINE] AdvReac Unknown Verified 09/02/17 09:10 gemfibrozil [GEMFIBROZIL] AdvReac Unknown Verified 09/02/17 09:10 hydrochlorothiazide AdvReac Unknown Verified 09/02/17 09:10 [HYDROCHLOROTHIAZIDE] lisinopril [LISINOPRIL] AdvReac Unknown Verified 09/02/17 09:10 Review of Systems Review of Systems All systems reviewed & are unremarkable except as noted in HPI and below Exam Vital Signs (past 8 hours): Vital Signs - 8 hr 3 09/25/17 05:40 09/25/17 06:05 09/25/17 08:14 Temperature 99.4 F 98.6 F Pulse Rate 80 81 82 Respiratory Rate 16 18 18 Blood Pressure 129/64 H 131/59 H Pulse Oximetry 94 92 95 Pulse Oximetry 95 Oxygen Delivery Method Nasal Cannula Oxygen Flow Rate 2 Narrative Exam Narrative: Pleasant elderly male no acute distress HEENT exam unremarkable mucous membranes moist Neck is supple Lungs some crackles in the bases Heart regular rhythm Abdomen soft nontender Lower extremities no edema Skin warm and dry Neuro exam awake alert speech normal no focal deficits Objective Labs Result Diagrams: 09/24/17 19:15 09/24/17 19:15 Labs: Laboratory Results - last 24 hr 09/24/17 09/24/17 09/24/17 14:53 19:15 19:15 WBC 5.5 RBC 2.17 L Hgb 7.3 L Hct 20.9 L* MCV 96.7 MCH 33.6 MCHC 34.8 RDW 16.0 H Plt Count 65 L Neut % (Auto) Not Reportable Lymph % (Auto) Not Reportable [place] % (Auto) Not Reportable Eos % (Auto) Not Reportable Baso % (Auto) Not Reportable Total Counted 100 Seg Neutrophils % 85.0 H Band Neutrophils % 6.0 Lymphocytes % (Manual) 8.0 L Monocytes % (Manual) 1.0 L Neutrophils # (Manual) 5005 RBC Morphology Normal morphology PT 12.1 INR 1.1 Sodium Potassium Chloride Carbon Dioxide BUN Creatinine Estimated GFR BUN/Creatinine Ratio Glucose Lactate Calcium Total Bilirubin Procalcitonin Nasal Screen MRSA (PCR) Blood Type O Positive Antibody Screen Negative Crossmatch See Detail 09/24/17 09/24/17 09/24/17 19:15 19:15 19:15 WBC RBC Hgb Hct MCV MCH MCHC RDW Plt Count Neut % (Auto) Lymph % (Auto) [place] % (Auto) Eos % (Auto) Baso % (Auto) Total Counted Seg Neutrophils % Band Neutrophils % Lymphocytes % (Manual) Monocytes % (Manual) Neutrophils # (Manual) RBC Morphology PT INR Sodium 134 L Potassium 4.0 Chloride 101 Carbon Dioxide 26 BUN 33 H Creatinine 0.80 Estimated GFR > 60.0 BUN/Creatinine Ratio 41.3 H Glucose 206 H Lactate 1.6 Calcium 7.7 L Total Bilirubin 1.7 H Procalcitonin 0.12 Nasal Screen MRSA (PCR) Blood Type Antibody Screen Crossmatch 09/24/17 22:30 WBC RBC Hgb Hct MCV MCH MCHC RDW Plt Count Neut % (Auto) Lymph % (Auto) [place] % (Auto) Eos % (Auto) Baso % (Auto) Total Counted Seg Neutrophils % Band Neutrophils % Lymphocytes % (Manual) Monocytes % (Manual) Neutrophils # (Manual) RBC Morphology PT INR Sodium Potassium Chloride Carbon Dioxide BUN Creatinine Estimated GFR BUN/Creatinine Ratio Glucose Lactate Calcium Total Bilirubin Procalcitonin Nasal Screen MRSA (PCR) Negative for mrsa Blood Type Antibody Screen Crossmatch Assessment & Plan Plan: Assessment/Plan Narrative: One. Probable pneumonia O2 sat down to 90% on room air symptoms of cough bilateral infiltrates this is complicated by him having small cell cancer and also recently receiving chemotherapy obviously suppressing his white cell count response. He has had a fever. Plan to continue with antibiotics started in the emergency room. 2. Urinary tract infection appears to be recurrent or unsuccessfully treated in the past few weeks he has evidence of urinary infection again Gram-negative bacillus is growing out of the urine plan to continue with the antibiotics started in the emergency room. Await cultures 3. 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 He is on chemotherapy he has leukopenia and thrombocytopenia and anemia. 4. 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 Plan to give him a 2 unit transfusion his hematocrit has dropped down to 20 as baseline is more like 25. 5. Coronary artery disease clinically stable watch this carefully as he is quite anemic 6. Code status patient desires to be full code 7. DVT prophylaxis because of his thrombocytopenia will hold on that for now. Quality VTE Deep Vein Thrombosis/Pulmonary Embolism Present on Admission: No
[2017-09-25] MEDS: CEFEPIME 2 GM in SODIUM CHLORIDE 0.9% 100 ML 200 ML IV ×2 (10:08→21:41)
--- NOTE | 2017-09-25 14:47 | PC.NURSE ---
several attempts at documenting completion of rbc unit #1 - computer having difficulty filing this
--- NOTE | 2017-09-25 14:47 | CM.DPC ---
DCP: assessment: case received, EMR reviewed. Pt is a 77 year old male who admitted last night to care of hospitalist team. PCP: Dr. Cameron Payer: Medicare and [employer] Oncology team at [facility] sees pt for treatment of metastatic prostate cancer and small cell lung carcinoma. UR RN Samantha confirms inpt admissions status. Spoke by phone with director oncology Eugenie Pulliam (ex [phone] early this morning and she reported that she has worked frequently with pt at the clinic and will see him in the hospital today. Met now with pt and his significant other Vanessa Alonso (cell: [phone]). Introduced self and role. Pt is ill, currently being treated for pneumonia and a urinary tract infection. Is also this afternoon receiving blood transfusion, so spoke primarily with Vanessa. Vanessa reports that they are pleased that pt has completed his last chemo treatment (09/19) although he will be on some ongoing oral medications. She says [employer] NURSE Eugenie has been of great help in getting financial assistance to pay for the oncology medications. She notes that pt has only recently started using a 4ww. Would expect that PT will be involved with pt in the hospital once he is able to tolerate same. P: check in with pt and Vanessa as POC unfolds to assist with d/c issues and options as need arises.
--- NOTE | 2017-09-25 16:37 | PC.NURSE ---
Patient having mild shaking- c/o being cold- temp 100.1- asked for and given warm blanket- chills stopped immediately. Dry hackey cough- lungs clear. Significant other Vanessa and patient updated on findings. Vanessa stated patient does not want to tell us about his pains/ other discomfort because he wants to go home. Reviewed plan of care.
[2017-09-25] MEDS: ATORVASTATIN 20 MG TABLET 40 MG PO (21:41)
[2017-09-26] VITALS (7 sets, daily range): BP systolic 125–161; BP diastolic 60–88; PULSE 75–94; RESP 20–22; TEMP 36.6–37.7; O2SAT 92–96
[2017-09-26] MEDS: ACETAMINOPHEN 325 MG TABLET 650 MG PO (03:18)
[2017-09-26 05:19] LABS: Alanine Aminotransferase 19 IU/L (21-72); Albumin 2.9 g/dL (3.5-5.0); Albumin Globulin Ratio 1.1 (1.0-2.8); Alkaline Phosphatase 60 U/L (38-126); Aspartate Aminotransferase 16 IU/L (17-59); BUN Creatinine Ratio 32.2 (6-22); Bilirubin Total 1.9 mg/dL (0.2-1.3); Blood Urea Nitrogen 29 mg/dL (9-20); Calcium 8.2 mg/dL (8.4-10.2); Carbon Dioxide 23 mmol/L (22-32); Chloride 105 mmol/L (98-107); Estimated Glomerular Filt Rate > 60.0 mL/min (>60); Globulin 2.6 g/dL (1.7-4.1); Glucose 175 mg/dL (80-110); HEMOLYSIS < 15 (0-50); Sodium 137 mmol/L (137-145); Total Protein 5.5 g/dL (6.3-8.2)
[2017-09-26 05:25] LABS: Hematocrit 25.4 % (41-53); Hemoglobin 8.8 g/dL (13.5-17.5); Mean Corpuscular HGB Conc 34.7 % (30-36); Mean Corpuscular Hemoglobin 32.2 PG (26-34); Mean Corpuscular Volume 92.9 fL (80-100); Platelet Count 40 X10^3/uL (150-400); Red Blood Cell Count 2.74 X10^6/uL (4.5-5.9); Red Cell Distribution Width 18.7 % (11.6-14.8)
[2017-09-26 05:26] LABS: Add Manual Diff / Slide Review YES
[2017-09-26 05:28] LABS: White Blood Cell Count 1.9 X10^3/uL (4.5-11.0)
[2017-09-26 05:39] LABS: Neutrophils Absolute Manual 1368 /uL (3000-5900); Total Cells Counted 100
[2017-09-26 05:40] LABS: Anisocytosis 1+; Dohle Bodies 2+; Toxic Granulation Present
[2017-09-26] MEDS: ABIRATERONE PO (06:55)
--- NOTE | 2017-09-26 06:58 | PC.NURSE ---
Patient felt like he has more energy Up to chair most of the night, ambulated into BR with walker, wore C-pap intermittently, SpO2 95% RA, Temp 99.5 at midnight, 98.1 after Tylenol given at 0300 per patient request for headache. SR.
--- NOTE | 2017-09-26 08:56 | PM.PN.1 ---
Subjective Date Patient Seen: 09/26/17 Time Patient Seen: 08:56 Interval history: Patient sitting at side of the bed having breakfast with . States he feels much better today. Eager to for discharge. Exam Vital Signs (past 8 hours): Vital Signs - 8 hr 09/26/17 04:18 09/26/17 07:36 Temperature 98.1 F 97.8 F Pulse Rate 94 H 75 Respiratory Rate 20 Blood Pressure 130/60 H 138/71 H Pulse Oximetry 96 92 Pulse Oximetry 92 Oxygen Delivery Method CPAP Oxygen Flow Rate 2 Const General: cooperative, healthy appearing and comfortable Nutritional Appearance: overweight Orientation: alert, awake and oriented x3 HENMT Head: normal to inspection, normocephalic and atraumatic Ears: other (Slightly hard of hearing) Mouth: oral mucosae normal Throat: posterior oropharynx normal Eyes General: appearance normal, both eyes and all related structures Pupils: PERRL and pupil size bilaterally 2.0 EOM: EOM intact bilaterally Neck Neck: normal visual inspection Other: No neck vein distention or lymphadenopathy. No neck pain. Full range of motion in neck. Chest Chest: normal inspection of the chest Resp Effort & Inspection: normal respiratory effort and able to speak in complete sentences Other: Left lower lobe rales present. Otherwise clear to auscultation. No wheezes. Cardio Rate: regular rate and tachycardic Rhythm: regular rhythm Heart Sounds: S1 normal and S2 normal Other: Slightly tachycardic at 105. No rubs, clicks or murmurs. GI Inspection: normal to inspection Palpation: soft Auscultation: normal bowel sounds Other: Nontender. Hemoccult stools negative. Other: Bladder nontender to palpation. Denies dysuria. Back/Spine/Pelvis Back: normal to inspection Skin General: no rashes or lesions noted, dry skin and warm Neuro General: alert, awake and oriented x3 Cognition: normal cognition Speech: speech normal Motor: muscle tone normal throughout Sensory Exam: no sensory deficits noted Extrem General: normal to inspection, capillary refill normal and pedal edema (Trace pitting edema bilateral ankles.) Left lower extremity: lower leg (Varicose veins on left lower leg. Compression stockings in place.) Psych Appearance: grossly normal Speech and Movement: speech and movement normal Mood: congruent mood Affect: normal affect Attitude: cooperative Thought Process: normal Thought Content: normal Judgment: judgment good Objective Labs Result Diagrams: 09/26/17 04:50 09/26/17 04:50 Labs: Laboratory Results - last 24 hr 09/24/17 09/25/17 09/26/17 14:53 08:35 04:50 WBC 1.9 L* D RBC 2.74 L Hgb 8.8 L Hct 25.4 L MCV 92.9 D MCH 32.2 MCHC 34.7 RDW 18.7 H Plt Count 40 L Neut % (Auto) Not Reportable Lymph % (Auto) Not Reportable Mccone % (Auto) Not Reportable Eos % (Auto) Not Reportable Baso % (Auto) Not Reportable Total Counted 100 Seg Neutrophils % 62.0 Band Neutrophils % 10.0 H Lymphocytes % (Manual) 25.0 Monocytes % (Manual) 3.0 Neutrophils # (Manual) 1368 L Toxic Granulation Present H Dohle Bodies 2+ H RBC Morphology Not Reportable Anisocytosis 1+ H Sodium Potassium Chloride Carbon Dioxide BUN Creatinine Estimated GFR BUN/Creatinine Ratio Glucose Calcium Total Bilirubin AST ALT Alkaline Phosphatase Total Protein Albumin Globulin Albumin/Globulin Ratio Blood Type O Positive Antibody Screen Negative Crossmatch See Detail See Detail 09/26/17 04:50 WBC RBC Hgb Hct MCV MCH MCHC RDW Plt Count Neut % (Auto) Lymph % (Auto) Mccone % (Auto) Eos % (Auto) Baso % (Auto) Total Counted Seg Neutrophils % Band Neutrophils % Lymphocytes % (Manual) Monocytes % (Manual) Neutrophils # (Manual) Toxic Granulation Dohle Bodies RBC Morphology Anisocytosis Sodium 137 Potassium 4.0 Chloride 105 Carbon Dioxide 23 BUN 29 H Creatinine 0.90 Estimated GFR > 60.0 BUN/Creatinine Ratio 32.2 H Glucose 175 H Calcium 8.2 L Total Bilirubin 1.9 H AST 16 L ALT 19 L Alkaline Phosphatase 60 Total Protein 5.5 L Albumin 2.9 L Globulin 2.6 Albumin/Globulin Ratio 1.1 Blood Type Antibody Screen Crossmatch Assessment & Plan Plan: Assessment/Plan Narrative: 1. Probable pneumonia: O2 sat remained in the low to mid 90s on room air. He continues to have a dry cough. T-max in the last 24 hr is 100.9. He has remained afebrile overnight. CT from the shows a very mild left-sided pleural effusion, with no new lung masses compared to previous CT. His symptoms of cough and bilateral infiltrates is complicated by him having small cell cancer and also recently receiving chemotherapy obviously suppressing his white cell count response. Plan to continue with IV cefepime at this time at least for another 24 hr before switching to oral antibiotics. We will increase his activity level today. Place on incentive spirometry. 2. Urinary tract infection appears to be recurrent or unsuccessfully treated in the past few weeks he has evidence of urinary tract infection again Gram-negative bacillus E coli, sensitive to cefepime IM. He denies any dysuria at this time. Blood cultures x2 show no growth after 24 hr. I will continue to monitor. 3. 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 He is on chemotherapy he has leukopenia which has worsened with a white count of 1.9. and thrombocytopenia with a platelet count of 40, and anemia. 4. 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 He was transfused with 2 units of packed red blood cells yesterday with a rise in his hemoglobin to 8.8. Will repeat CBC in a.m. Continue to guaiac stools. 5. Coronary artery disease clinically stable watch this carefully as he was quite anemic. 6. Code status patient desires to be full code 7. DVT prophylaxis because of his thrombocytopenia will hold on that until his platelets are at least 50,000.. Quality Quality VTE Deep Vein Thrombosis/Pulmonary Embolism Present on Admission: No
[2017-09-26] MEDS: ASCORBIC ACID 500 MG TABLET 1500 MG PO (09:29)
[2017-09-26] MEDS: CHOLECALCIFEROL (VITAMIN D3) 1,000 UNIT TABLET 1000 UNIT PO (09:30)
[2017-09-26] MEDS: CALCIUM CARBONATE 600 MG TABLET 1200 MG PO (09:30)
[2017-09-26] MEDS: FOLIC ACID 1 MG TABLET PO ×2 (09:30→21:47)
[2017-09-26] MEDS: CARVEDILOL 25 MG TABLET PO ×2 (09:30→21:45)
[2017-09-26] MEDS: predniSONE 5 MG TABLET PO ×2 (09:31→21:47)
[2017-09-26] MEDS: MAGNESIUM OXIDE 400 MG TABLET 200 MG PO (09:31)
[2017-09-26] MEDS: MULTIVITAMIN 1 TABLET 1 TAB PO (09:31)
[2017-09-26] MEDS: POTASSIUM CHLORIDE 20 MEQ TAB PO (09:31)
[2017-09-26] MEDS: SODIUM CHLORIDE 0.9% FLUSH 10 ML IV ×2 (09:32→22:43)
[2017-09-26] MEDS: CEFEPIME 2 GM in SODIUM CHLORIDE 0.9% 100 ML 200 ML IV ×2 (09:33→21:44)
[2017-09-26] MEDS: SODIUM CHLORIDE 0.9% 250 ML 21 ML IV (09:40)
--- NOTE | 2017-09-26 15:05 | PC.NURSE ---
I.S. teaching and administration completed by RDeanaT. per R.T. no need for neb treatments. See R.T. documentation for details.
--- NOTE | 2017-09-26 17:04 | PC.NURSE ---
Patient requested to be left to sleep at change of shift- currently on own cpap mask.
[2017-09-26] MEDS: ATORVASTATIN 20 MG TABLET 40 MG PO (21:46)
[2017-09-27 00:37] VITALS: BP 157/76; PULSE 79; RESP 22; TEMP 37.3; O2SAT 95
[2017-09-27 04:51] VITALS: BP 153/79; PULSE 69; RESP 17; TEMP 36.3; O2SAT 96
[2017-09-27 05:43] LABS: Hematocrit 23.1 % (41-53); Mean Corpuscular HGB Conc 34.7 % (30-36); Mean Corpuscular Hemoglobin 32.4 PG (26-34); Mean Corpuscular Volume 93.4 fL (80-100); Red Blood Cell Count 2.47 X10^6/uL (4.5-5.9); Red Cell Distribution Width 17.3 % (11.6-14.8); White Blood Cell Count 1.2 X10^3/uL (4.5-11.0)
[2017-09-27 05:44] LABS: Add Manual Diff / Slide Review YES
[2017-09-27 05:46] LABS: Platelet Count 26 X10^3/uL (150-400)
[2017-09-27 06:20] LABS: Dohle Bodies 2+; Neutrophils Absolute Manual 624 /uL (3000-5900); Total Cells Counted 100; Toxic Vacuolation Present
[2017-09-27 06:21] LABS: Anisocytosis 1+
[2017-09-27] MEDS: ABIRATERONE PO (06:38)
[2017-09-27 07:27] VITALS: BP 113/74; PULSE 89; RESP 18; TEMP 36.6; O2SAT 96
[2017-09-27] MEDS: predniSONE 5 MG TABLET PO (08:13)
[2017-09-27] MEDS: CARVEDILOL 25 MG TABLET PO (08:13)
[2017-09-27] MEDS: CHOLECALCIFEROL (VITAMIN D3) 1,000 UNIT TABLET 1000 UNIT PO (08:13)
[2017-09-27] MEDS: FOLIC ACID 1 MG TABLET PO (08:13)
[2017-09-27] MEDS: CALCIUM CARBONATE 600 MG TABLET 1200 MG PO (08:13)
[2017-09-27] MEDS: MULTIVITAMIN 1 TABLET 1 TAB PO (08:13)
[2017-09-27] MEDS: ASCORBIC ACID 500 MG TABLET 1500 MG PO (08:13)
[2017-09-27] MEDS: MAGNESIUM OXIDE 400 MG TABLET 200 MG PO (08:13)
[2017-09-27] MEDS: POTASSIUM CHLORIDE 20 MEQ TAB PO (08:13)
[2017-09-27] MEDS: SODIUM CHLORIDE 0.9% FLUSH 10 ML IV (08:14)
[2017-09-27] MEDS: CEFEPIME 2 GM in SODIUM CHLORIDE 0.9% 100 ML 200 ML IV (08:14)
[2017-09-27] MEDS: ACETAMINOPHEN 325 MG TABLET 650 MG PO (10:30)
--- NOTE | 2017-09-27 11:11 | PM.DS.1 ---
History of Present Illness Date Patient Seen: 09/27/17 Time Patient Seen: 11:11 Chief complaint: FEVER IS INCREASING HE STATES Narrative: 77-year-old male with it is small cell lung cancer and now metastatic prostate cancer presents with fever cough and recent history of urinary infection. He last received chemotherapy around the 19 of September. He started having fever feeling weak and came into the emergency room then developed symptoms of a cough once once he was here. He was on antibiotics in the last few weeks on 2 different occasions for urinary infection he has also had increasing urinary symptoms over the past 24 hr of burning and difficulty with urination. Discharge Providers Date of admission: 09/24/17 21:37 Primary care physician: Gurdeep Cameron MD Consults: 09/24/17 21:08 Consult to Physician Routine Comment: Consulting Provider: Amos Aguilera Reason for consultation: sepsis 09/24/17 23:04 Consult to Dietitian, Adult Routine Comment: Reason For Exam: assessed at high risk Discharge provider: SID Canchola Summary Discharge Diagnosis: 1. Metastatic malignant neoplasm to prostate. 2. 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 3. Thrombocytopenia 4. Leukopenia 5. Small-cell lung cancer 6. Urinary tract infection 7. Atypical pneumonia probable bacterial. Hospital Course: This is a summary for 3 day hospitalization for this pleasant 77-year-old patient who was admitted with atypical pneumonia, and urinary tract infection. As noted in his history of previous illness he is also being treated for small cell lung cancer and metastatic prostate cancer which is being followed by Dr. Ramon Lee. Patient had probable pneumonia with sats down into the 90s on room air and had a cough as well. He was also being treated for urinary tract infection as an outpatient. He reports having a fever in the past and his T-max during this hospitalization was 101.4. He has been afebrile for more than 24 hr. The patient was started on cefepime x2 g IV q.12 hours, and managed with his other outpatient medications. His chest CT showed ground-glass attenuation with the tree-in-bud nodularity in the right upper lobe and lingula suspicious for atypical pneumonia. There is a trace left-sided pleural effusion. A vascular ultrasound of the lower extremity left side revealed no evidence of DVT. He had 2 blood cultures done which revealed no growth after 48 hr. His urine culture showed E coli sensitive to cefepime IM and Keflex. During his hospitalization he continued to developed more profound leukopenia with his white count decreasing to 1.2, and thrombocytopenia with a platelet count of 26. He received his final session of chemotherapy approximately 1 week ago. There is no signs of occult or active bleeding. After discussing the case with Dr. Lee this morning it was felt that the patient could be discharged with follow-up on Monday in his office. Patient has been instructed to avoid activities that may have risk of injury or cutting himself, as well as to be seen if he develops any bleeding. He will be continued on oral Keflex for an additional 7 days, as well as azithromycin for coverage of his atypical bacteria pneumonia. Status at Discharge Functional status at discharge: independent ambulation Overall status at discharge: patient is progressing back to baseline Time Spent with Patient Greater than 30 minutes Exam Vital Signs (past 8 hours): Vital Signs - 8 hr 09/27/17 04:51 09/27/17 07:27 Temperature 97.4 F L 97.9 F Pulse Rate 69 89 Respiratory Rate 17 18 Blood Pressure 153/79 H 113/74 Pulse Oximetry 96 96 Pulse Oximetry 96 Oxygen Delivery Method Room Air Oxygen Flow Rate 2 Objective Labs Result Diagrams: 09/27/17 04:49 09/26/17 04:50 Labs: Laboratory Results - last 24 hr 09/27/17 04:49 WBC 1.2 L* RBC 2.47 L Hgb 8.0 L Hct 23.1 L MCV 93.4 MCH 32.4 MCHC 34.7 RDW 17.3 H Plt Count 26 L* Neut % (Auto) Not Reportable Lymph % (Auto) Not Reportable [place] % (Auto) Not Reportable Eos % (Auto) Not Reportable Baso % (Auto) Not Reportable Total Counted 100 Seg Neutrophils % 45.0 Band Neutrophils % 7.0 Lymphocytes % (Manual) 44.0 Monocytes % (Manual) 2.0 Eosinophils % (Manual) 2.0 Neutrophils # (Manual) 624 L Toxic Vacuolation Present H Dohle Bodies 2+ H RBC Morphology Not Reportable Anisocytosis 1+ H PROCEDURE: CT CHEST WO CON INDICATIONS: pneumonia, lung cancer TECHNIQUE: Noncontrast 5 mm thick sections acquired from the pulmonary apices to the posterior costophrenic angles. 7 mm thick coronal and sagittal MIP reformats were then acquired. For radiation dose reduction, the following was used: automated exposure control, adjustment of mA and/or kV according to patient size. COMPARISON: [facility], CT, CT [place], 08/01/2017, 15:58. [place], [place], PET NECK TO MID THIGH, 07/28/2017, 9:54. [facility], CT, CT [place], 07/11/2017, 11:12. [facility], CT, CHEST/ABD/PEL WITH CONTRAST, 07/10/2017, 9:19. [place], [place], BONE SCAN WHOLE BODY, 05/25/2017, 12:54. [facility], CT, CHEST/ABD/PEL WITH CONTRAST, 05/25/2017, 10:54. FINDINGS: Image quality: Diagnostic. Lungs and pleura: There is a very small left-sided pleural effusion. No significant right-sided pleural effusion is identified. The patient's known right lingular mass is not clearly evident on the current examination. However, there are areas of mild consolidation within the lingula with additional areas of tree in bud nodularity. A similar appearance is noted involving anterior lower aspect of the right upper lobe. There also is a similar appearance evident within the left lower lobe. No new lung masses are evident. There is no pneumothorax. Mediastinum: Heart size is normal. No pericardial effusion. No mediastinal adenopathy by size criteria. Thoracic aorta and central pulmonary arteries are normal in size. Coronary and aortic atherosclerosis is noted. Esophagus is normal in caliber. There is a small hiatal hernia.. Bones and chest wall: Prominent sclerosis is identified involving the right side of scapula, including the glenoid and the acromion. No definite additional areas of bone sclerosis are evident. No vertebral body compression fractures. No axillary or supraclavicular adenopathy by size criteria. Thyroid gland is not enlarged. Abdomen: The included portions of the upper abdomen are similar to the previous exams. No perinephric edema is incidentally noted. There is diagnostic IMPRESSION: 1. Patient's known uterine mass is not readily apparent on this examination, which likely is related to interval decrease in size of this mass and may be partly obscured by adjacent atelectasis. No new lung masses or definite nodules. 2. Ground glass attenuation with tree in bud nodularity within the right upper lobe and lingula is suspicious for an atypical pneumonia. 3. Trace left-sided pleural effusion. 4. Sclerosis of the right scapula is suggestive of metastatic disease. No additional areas of bony sclerosis. 5. Small hiatal hernia. 6. Coronary and aortic atherosclerosis. Dictated by: Sundar Bishop M.D. on 09/25/2017 at 9:56 Approved by: Sundar Bishop M.D. on 09/25/2017 at 10:06 PROCEDURE: US PERIPH VENOUS LOW EXTREM LT INDICATIONS: pain hx of clot with cancer TECHNIQUE: Real-time imaging, as well as color and pulse Doppler interrogation, were performed of the lower extremity deep veins from the inguinal ligament to the popliteal fossa. COMPARISON: None. FINDINGS: The deep veins are normally compressible, and free of intraluminal thrombus. Color and pulse Doppler demonstrate normal phasic intraluminal flow. There is normal augmentation response to distal compression maneuver. IMPRESSION: No evidence of left lower extremity DVT. Dictated by: Lianna Bowen M.D. on 09/24/2017 at 16:01 Approved by: Lianna Bowen M.D. on 09/24/2017 at 16:01 Discharge Plan Discharge Plan Patient Disposition: Home, Self-Care Discharge comment: Patient will need to have CBC with Diff drawn prior to seeing oncology this Monday. Provider Discharge Instructions Diet: Regular Activity: As tolerated, avoid activities that would cause injury as he is very susceptible to bleeding. Discharge Data Primary Care Provider: Gurdeep Cameron V Attending Provider: Amos Aguilera Admit Date/Time: 09/24/17 21:37 Quality VTE Deep Vein Thrombosis/Pulmonary Embolism Present on Admission: No
--- NOTE | 2017-09-27 11:31 | CM.DPC ---
DCP: Continued: SID Moore is finalizing d/c home orders for pt. Pt and Vanessa will be following up with oncology for further treatment as an outpt.
--- NOTE | 2017-09-27 11:36 | ONC.NAV ---
Description: Check-in/Discharge Plan Coordination Activity: Met with pt/Vanessa to check-in regarding pt's status, comfort, and plan for discharge. He is actually being discharged today, with the plan of continuing oral antibiotics at home. He reports feeling much better, however continues to also feel very weak. He's hopeful to be strong enough to go sailing tomorrow, which is his primary source of quality of life. Discussed what they had been told by Dr. Aguilera; that he had spoken with Dr. Lee, and would like pt to be seen for f/u in Oncology by a provider this coming Monday. He is already scheduled for labs that day at 10:30. This [employer] agreed to speak with our schedulers to see what we can do, then f/u with Vanessa with a plan. *Spoke with ONC schedulers. SID Abebe, has an opening on Monday at 10:30am. [employer] has sent her an email asking if we can add Nahun onto her schedule. She will be in tomorrow, and we will confirm appointment time with both her/pt.
== END 2017-09-27 12:53 | disposition home or self-care (01) | DRG 194 ==
LOC: ED 21:07 → ICU 21:42
PROVIDERS: Nurse Practitioner Acute Care; Admitting Provider Internal Medicine; Emergency Provider Emergency Medicine; Family Provider Internal Medicine; PCP Internal Medicine; Visit Provider Internal Medicine
DX: J15.9 Unspecified bacterial pneumonia (principal); N39.0 Urinary tract infection, site not specified; C79.51 Secondary malignant neoplasm of bone; C34.90 Malignant neoplasm of unspecified part of unspecified bronchus or lung; C61 Malignant neoplasm of prostate; D64.81 Anemia due to antineoplastic chemotherapy; T45.1X5A Adverse effect of antineoplastic and immunosuppressive drugs, initial encounter; D63.0 Anemia in neoplastic disease; D69.59 Other secondary thrombocytopenia; D70.1 Agranulocytosis secondary to cancer chemotherapy
CPT/HCPCS: 36415; 36430; 36591; 71045; 71046; 71250; 80048; 80053; 81003; 81015; 82247; 83605; 84145; 85025; 85610; 86850; 86900; 86901; 87040; 87077; 87086; 87186; 87797; 93971; 94762; 96361; 96365; 96366; 96367; 96372; 96375; 96413; 99283; 99284; 99285; P9016; J0692; J1100; J2405; J2505; J9181

== ENCOUNTER → 2017-09-29 10:02 | Outpatient (CLI) | payer MEDICARE, OTHER, SELFPAY ==
[2017-09-24 22:51] VITALS: BMI 29.9
--- NOTE | 2017-09-29 08:29 | P.PNONC_ITS ---
Assessment and Plan (1) Metastatic malignant neoplasm to prostate Current visit: No Status: Chronic 09/29/17 17:33 Nahun is a 77-year-old male who on September 19 completed chemotherapy in the form of carboplatin and etoposide for treatment of high risk prostate cancer, metastatic with a [place] score of 9. He also has small cell lung carcinoma, limited disease. He was hospitalized September 25 through September 27 for atypical bacterial pneumonia. Treated with IV cefepime. Blood cultures negative. Urine culture negative. Presents today for hospital follow-up. Reports he is feeling better today than at time of discharge. No acute complaints whatsoever however he does have chronic fatigue, weakness, malaise. He denies cough, fever, chills. No dysuria , no hematuria. No nausea, no belly pain. No unexplained bleeding or bruising. He does have cytopenias today with a white count of 0.9 hemoglobin 8.2 hematocrit 23.7 platelets 13. He has no more planned chemotherapy. Currently at his mary. I expect these counts to begin coming up. He is asymptomatic he remains on oral antibiotic. We will follow closely. Exam largely unremarkable for any acute issues today. He has an appointment early next week with Dr. Lee. pt has been instructed to return sooner or present immediately to the emergency department for any acute changes. Both he and his verbalize understanding. - Time Spent with Patient 10 mins reviewing hospital notes 25 mins w pt 10 mins in dictation PN -Subjective Interval history: Nahun is a 77-year-old male with concurrent high risk prostate cancer, [place] score 9 and small cell lung cancer, limited disease. He presents today for hospital follow-up, he was admitted to [facility] September 25 discharged September 27 with discharge diagnosis of atypical bacterial pneumonia, urinary tract infection, thrombocytopenia, leukopenia, non-small cell lung cancer, metastatic prostate cancer to bone. The patient had received his 4th and final chemotherapy September 19, 2017. His chemotherapy regimen consisted of standard carboplatin etoposide chemotherapy. Additionally he was receiving consolidative chest radiation therapy. He presented to emergency department September 25 with fever and cough also weakness and malaise. He had been treating with oral antibiotics. Bilateral infiltrates were identified on imaging. He had fever. He was subsequently admitted to the hospital. He required 2 units of packed red blood cells, hematocrit had dropped to 20. Patient was treated with cefepime. Two blood cultures demonstrated no growth. Urine culture grew E coli with good sensitivities. Platelets were as low as 26. He was discharged on oral Keflex also azithromycin. On exam today Nahun reports ongoing fatigue, weakness, loss of appetite and general malaise. However, he rpeorts, he is much better today than he was at time of DC from hospital. He goes on to report he never ?really felt sick I just had a fever?. At time of illness he was having increased fatigue and weakness these seem to be improving. He has not had any further episodes of fever or chills. He denies cough. He denies worsening shortness of breath or chest pain. No nausea or abdominal pain. No diarrhea. No bleeding or unexplained bruising. Past Medical History 1) Prostate Cancer Diagnosis: -Clinical -Tissue diagnosis pending. Clinical Staging, Baseline: -04/21/2017. PSA . -05/25/2017. CT chest abdomen and pelvis with contrast. Left upper lung is a 30 x 37 mm subpleural mass. -05/25/2017. Whole body bone scan. Abnormal uptake seen in the right scapula and focal uptake left proximal femur. 2) Rheumatoid Arthritis. diagnosed 1987. Presented with joint pain in the knees and elbows. 3) Pulmonary emboli, diagnosed 2001. Diagnosed and managed in [place], [place]. Treated for limited period. Recently placed back on lifelong anticoagulation approximately 5 years ago after developing superficial blood clots. 4) Hypertension 5) Coronary artery disease. 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 Results - Labs 09/29/17 10:16 - Imaging Additional studies: Procedures Closed [endoscopic] biopsy of large intestine (05/22/13) Insertion of intraocular lens prosthesis at time of cataract extraction, one- stage (08/13/13) Phacoemulsification and aspiration of cataract (08/13/13) Removal of vitreous, anterior approach (08/13/13) Home Medications and Allergies Home Medications Medication Instructions Recorded Confirmed Type carvedilol [Coreg] 25 mg PO BID #0 11/20/10 09/24/17 History atorvastatin [Lipitor] 40 mg PO QDAY #0 03/21/17 09/24/17 History folic acid 1 mg PO BID #0 04/08/17 09/24/17 History ascorbic acid (vitamin C) 1,500 mg PO QDAY #0 06/01/17 09/24/17 History calcium carbonate 1,200 mg PO Q DAY #0 06/01/17 09/24/17 History cholecalciferol (vitamin D3) 2,000 iu PO QDAY #0 06/01/17 09/24/17 History [Vitamin D3] magnesium 200 mg PO Q DAY #0 06/01/17 09/24/17 History multivitamin [Multiple Vitamins] 1 tab PO QDAY #0 06/01/17 09/25/17 History abiraterone [Zytiga] 1,000 mg PO QDAY #120 tab 07/17/17 09/24/17 Rx prednisone 5 mg PO BID #120 tab 07/17/17 09/24/17 Rx potassium chloride [K-Tab] 20 meq PO DAILY #30 tab 09/05/17 09/24/17 Rx furosemide [Lasix] 40 mg PO DAILY PRN 09/08/17 09/24/17 History methotrexate sodium 10 mg PO QWEEK 09/12/17 09/24/17 History ondansetron [Zofran ODT] 4 mg SUBLINGUAL Q6HP PRN 09/24/17 09/24/17 History azithromycin See Label Instructions .ROUTE 09/27/17 Rx .COMPLEX #6 tab cephalexin [Keflex] 500 mg PO Q12H 7 Days #14 cap 09/27/17 Rx Allergies Allergy/AdvReac Type Severity Reaction Status Date / Time niacin [NIACIN] AdvReac Severe Hypotension Verified 09/24/17 22:50 amlodipine [AMLODIPINE] AdvReac Unknown Verified 09/02/17 09:10 gemfibrozil [GEMFIBROZIL] AdvReac Unknown Verified 09/02/17 09:10 hydrochlorothiazide AdvReac Unknown Verified 09/02/17 09:10 [HYDROCHLOROTHIAZIDE] lisinopril [LISINOPRIL] AdvReac Unknown Verified 09/02/17 09:10 Exam Narrative: non toxic appearing - Constitutional positive no acute distress, positive obese, positive chronically ill appearing - Routine HEENT Exam Eye: Absent: conjunctival icterus, scleral injection ENT: Present: mucous membranes moist - Routine Neck Exam Present: supple. Absent: lymphadenopathy - Routine Chest/Breast/Axilla Exam Axillae: Absent: lymphadenopathy, mass, tenderness - Routine Respiratory Exam Present: Clear to auscultation bilaterally, decreased breath sounds. Absent: rales, rhonchi, wheezes - Routine Cardiovascular Exam Present: RRR, S1, S2. Absent: JVD - Routine Abdominal Exam Present: soft, normoactive bowel sounds. Absent: tenderness, distended, organomegaly - Routine Extremities Exam Absent: edema, calf tenderness - Routine Neurological Exam Present: alert, oriented X3, CN II-XII intact, vision grossly intact, hearing grossly intact - Routine Psychiatric Exam Present: normal affect, normal thought process, good insight
[2017-09-29 10:32] LABS: Hematocrit 23.7 % (41-53); Hemoglobin 8.2 g/dL (13.5-17.5); Mean Corpuscular HGB Conc 34.5 % (30-36); Mean Corpuscular Hemoglobin 32.5 PG (26-34); Mean Corpuscular Volume 94.2 fL (80-100); Red Blood Cell Count 2.52 X10^6/uL (4.5-5.9); Red Cell Distribution Width 17.1 % (11.6-14.8)
[2017-09-29 10:35] LABS: Platelet Count 13 X10^3/uL (150-400); White Blood Cell Count 0.9 X10^3/uL (4.5-11.0)
[2017-09-29 10:36] LABS: Add Manual Diff / Slide Review YES
[2017-09-29 10:58] VITALS: BP 149/82; PULSE 75; RESP 20; O2SAT 96
[2017-09-29 11:28] LABS: Neutrophils Absolute Manual 252 /uL (3000-5900); Total Cells Counted 50
[2017-09-29 11:29] LABS: Anisocytosis 2+
== END ==
PROVIDERS: Family Provider Internal Medicine; PCP Internal Medicine; Visit Provider Internal Medicine Hematology & Oncology
DX: C61 Malignant neoplasm of prostate (principal); C34.12 Malignant neoplasm of upper lobe, left bronchus or lung; R53.83 Other fatigue; R53.1 Weakness; R63.0 Anorexia; R53.81 Other malaise
CPT/HCPCS: 85025; 93010; 99215

== ENCOUNTER 2017-09-29 22:00 | Observation (INO) | payer MEDICARE, OTHER, SELFPAY ==
[2017-09-24 22:51] VITALS: BMI 29.9
[2017-09-29 22:00] VITALS: BP 153/79; PULSE 91; RESP 18; O2SAT 97
[2017-09-29 22:10] VITALS: BP 153/79; PULSE 91; RESP 18; O2SAT 96; BMI 33.5
--- NOTE | 2017-09-29 22:14 | DI.RAD.S_ITS ---
PROCEDURE: XR CHEST 2V INDICATIONS: chest pain recent pneumonia and known lung ca TECHNIQUE: 2 views of the chest were acquired. COMPARISON: [facility], CT, CT CHEST WO CON, 09/25/2017, 9:23. [facility], CT, CT ANGIO CHEST PE PROTOCOL, 09/29/2017, 22:53. [facility], CR, XR CHEST 1V, 09/24/2017, 19:03. FINDINGS: Surgical changes and devices: None. Lungs and pleura: The pulmonary vasculature is diffusely increased. Vague increased attenuation within the lung bases is similar to the prior study. There is no large effusion or pneumothorax. Mediastinum: Mediastinal contours are normal. The heart is mildly enlarged. There is aortic atherosclerosis. Bones and chest wall: No suspicious bony abnormalities. Soft tissues appear unremarkable. IMPRESSION: Mild cardiomegaly with prominent perihilar lung markings is suspicious for possible developing pulmonary edema. Superimposed pneumonia is difficult to exclude. Dictated by: Sundar Bishop M.D. on 09/30/2017 at 8:25 Approved by: Sundar Bishop M.D. on 09/30/2017 at 8:27
[2017-09-29 22:22] LABS: Prothrombin Time 10.7 SECONDS (10.1-12.7)
[2017-09-29 22:23] LABS: Hematocrit 23.9 % (41-53); Hemoglobin 8.3 g/dL (13.5-17.5); Mean Corpuscular HGB Conc 34.7 % (30-36); Mean Corpuscular Hemoglobin 32.4 PG (26-34); Mean Corpuscular Volume 93.4 fL (80-100); Red Blood Cell Count 2.56 X10^6/uL (4.5-5.9)
[2017-09-29 22:24] LABS: Add Manual Diff / Slide Review YES
[2017-09-29 22:25] LABS: PTT Partial Thromboplastin Tim 25 SECONDS (26.4-36.2)
[2017-09-29 22:26] LABS: Platelet Count 17 X10^3/uL (150-400); White Blood Cell Count 1.7 X10^3/uL (4.5-11.0)
[2017-09-29 22:27] LABS: Alanine Aminotransferase 30 IU/L (21-72); Albumin 3.2 g/dL (3.5-5.0); Albumin Globulin Ratio 1.3 (1.0-2.8); Alkaline Phosphatase 65 U/L (38-126); Aspartate Aminotransferase 19 IU/L (17-59); BUN Creatinine Ratio 27.8 (6-22); Bilirubin Total 0.5 mg/dL (0.2-1.3); Blood Urea Nitrogen 25 mg/dL (9-20); Calcium 8.6 mg/dL (8.4-10.2); Carbon Dioxide 23 mmol/L (22-32); Chloride 107 mmol/L (98-107); Creatine Kinase < 20 U/L (55-170); Estimated Glomerular Filt Rate > 60.0 mL/min (>60); Globulin 2.5 g/dL (1.7-4.1); Glucose 208 mg/dL (80-110); HEMOLYSIS < 15 (0-50); Lipase 67 U/L (23-300); Potassium 4.4 mmol/L (3.4-5.1); Sodium 140 mmol/L (137-145); Total Protein 5.7 g/dL (6.3-8.2)
[2017-09-29 22:30] VITALS: BP 97/52; PULSE 90; RESP 18; O2SAT 96
[2017-09-29 22:31] VITALS: BP 153/79; PULSE 91
[2017-09-29] MEDS: NITROGLYCERIN 0.4 MG SL TAB SL (22:31)
[2017-09-29] MEDS: SODIUM CHLORIDE 0.9% 1,000 ML 150 ML IV (22:32)
[2017-09-29 22:38] LABS: Troponin I 0.024 ng/mL (0.01-0.034)
[2017-09-29 22:54] LABS: Nucleated Red Blood Cells 1 #/Diff
[2017-09-29 22:55] LABS: Anisocytosis 2+; Platelet Estimate Decreased on smear; Toxic Granulation Present
--- NOTE | 2017-09-29 22:55 | DI.CT.S_ITS ---
PROCEDURE: CT ANGIO CHEST PE PROTOCOL INDICATIONS: lung cancer with chest pain TECHNIQUE: After the administration of intravenous contrast, 2 mm thick sections acquired from the pulmonary apices to the posterior costophrenic angles. 3-dimensional maximum intensity projection (MIP) coronal and sagittal reformats were then acquired through the thorax. For radiation dose reduction, the following was used: automated exposure control, adjustment of mA and/or kV according to patient size. COMPARISON: [facility], CT, CT CHEST WO [facility], 09/25/2017, 9:23. FINDINGS: Image quality: Diagnostic. Pulmonary arteries: Pulmonary arteries are normal in size, and demonstrate no intraluminal filling defects to suggest central pulmonary embolism. Lungs and pleura: Aeration of the lungs is similar to the previous examination. There continues to be subtle areas of consolidation within the lingula. A lingular mass is not clearly evident. The degree of consolidation within the lingula has increased in the interim. The left-sided pleural effusion has resolved in the interim. There may be areas of early airspace disease or consolidation within the anterior aspect of the right upper lobe. No large effusion or pneumothorax is identified. Mediastinum: Heart size is normal, without pericardial effusion. Borderline prominent precarinal lymph node is identified which is similar to the previous study. Coronary and aortic atherosclerosis are noted. Thoracic aorta is normal in caliber and enhancement. Esophagus is normal in caliber, with a small hiatal hernia. Bones and chest wall: There continues to be sclerosis involving the right scapula, presumably seen involving the glenoid and acromion, which is unchanged since the prior study. No additional suspicious osseous lesions are evident. Ribs and thoracic spine appear intact throughout. Thyroid gland is not enlarged. No axillary or supraclavicular adenopathy. Abdomen: Visualized upper abdominal solid organs appear normal in the early arterial phase of enhancement. IMPRESSION: 1. No pulmonary emboli. 2. Increasing lingular consolidation is suspicious for developing pneumonia. Superimposed pulmonary nodules may be present. Additional scattered areas of patchy airspace disease are present. 3. Small left-sided pleural effusion has resolved. 4. No lingular mass is evident on the current study. 5. Unchanged right scapular sclerosis is suggestive of metastatic disease. 6. Small hiatal hernia. Note: The preliminary report provided by [facility] is concordant with the final report. Dictated by: Sundar Bishop M.D. on 09/30/2017 at 9:38 Approved by: Sundar Bishop M.D. on 09/30/2017 at 9:46
[2017-09-29 23:00] VITALS: BP 125/72; PULSE 82; RESP 15; O2SAT 97
[2017-09-29 23:29] LABS: Bacteria Urine None Seen; WBC Urine None Seen (0-5/HPF)
[2017-09-29 23:39] LABS: RBC Urine 1-5/HPF (0-5/HPF)
[2017-09-29 23:40] LABS: Culture Indicated Urine Cult Not Indicated
[2017-09-29 23:50] VITALS: BP 166/87; PULSE 72; RESP 19; TEMP 36.1; O2SAT 98
[2017-09-30] VITALS (13 sets, daily range): BP systolic 140–165; BP diastolic 77–97; PULSE 68–100; RESP 16–20; TEMP 36.3–36.9; O2SAT 95–98; BMI 33.5
--- NOTE | 2017-09-30 | DI.ECHO.S_ITS ---
[facility]---------+ [facility] +---------+ : : [address] : [place] [address] : : : : [id number] : : : : Phone: [phone]+ Echocardiogram Report + + :Name: TRAVIS GALE Study Date: 09/30/2017 Height: 68 in : :[facility] Weight: 225 lb : : Gender: Male BSA: 2.1 m2 : :: 1940 Age: 77 yrs BP: 148/84 mmHg: :Reason For Study: PERICARDIAL EFFUSION : : Performed By: Patricia Martino : :Referring: CHRISTOPHER JIMENEZ : + + Interpretation Summary The left ventricle is mildly dilated. There is mild concentric left ventricular hypertrophy. The ejection fraction is estimated to be 55-60%. There is no pericardial effusion. No other echocardiographic abnormalities seen. Compared to the prior echo report on 10/16/2014, there is no significant change. Procedure: A two-dimensional transthoracic echocardiogram with color flow and Doppler was performed. The study quality was technically adequate. Comparison is made with the echocardiogram of 10/16/2014. Patient was experiencing excruciating back pain while lying in any position. This is the reason for any EKG artifacts from patient's movements. The heart rate ranged between 68-74 bpm during the study. Left Ventricle: The left ventricle is mildly dilated. There is mild concentric left ventricular hypertrophy. The ejection fraction is estimated to be 55-60%. There are no focal wall motion abnormalities. Assessment of diastolic parameters indicates a relaxation abnormality of the left ventricle, consistent with normal filling pressures. Right Ventricle: The right ventricle is normal in size and function. Atria: The left atrium is moderately dilated. The right atrium is mildly dilated. There is no Doppler evidence for an interatrial shunt. The thickening of interatrial septum suggests lipomatous hypertrophy. Mitral Valve: The mitral valve leaflets appear thickened, but open well. There is mild mitral regurgitation. Aortic Valve: The aortic valve is trileaflet. The aortic valve opens well. There is mild aortic valve sclerosis. There is no aortic valve stenosis. No aortic regurgitation is present. Tricuspid Valve: The tricuspid valve is normal in structure and function. The right ventricular systolic pressure is estimated at 38 mmHg assuming a right atrial pressure of 3 mm Hg. There is mild tricuspid regurgitation. Pulmonic Valve: The pulmonic valve is normal in structure and function. There is a trace or physiologic amount of pulmonic regurgitation. Great Vessels: The aortic root is normal size. The ascending aorta is at the upper limits of normal in size. The aortic arch could not be visualized. The pulmonary artery is normal size. The IVC is of normal diameter and collapses greater than 50% with a sniff. This suggests a low right atrial pressure of 3 mm Hg. Pericardium/ Pleura There is no pericardial effusion. There is no pleural effusion. MMode/2D Measurements & Calculations LVIDd: 6.0 cm LVOT diam: 2.3 cm LVIDs: 3.8 cm Ao root diam: 3.7 cm FS: 35.7 % asc Aorta Diam: 3.6 cm IVSd: 1.1 cm LVPWd: 1.1 cm LV burgos. diameter/BSA (cm/m^2): 2.8 LV sys. diameter/BSA (cm/m^2): 1.8 LA A2 area: 25.6 cm2 RA long axis: 5.8 cm LA A4 area: 26.1 cm2 RA area: 23.4 cm2 LA length (vol): 6.3 cm RA vol: 79.9 ml LA vol: 90.0 ml RA : 37.2 ml/m2 LA vol index: 41.9 ml/m2 IVC diam: 2.0 cm RVD1 (basal): 3.5 cm TAPSE: 1.9 cm Doppler Measurements & Calculations Ao V2 max: 101.3 cm/sec LVOT Max Rayshawn: 88.4 cm/sec Ao V2 mean: 71.1 cm/sec LV V1 max P.1 mmHg Ao max P.1 mmHg LV V1 VTI: 21.5 cm Ao mean P.2 mmHg BRIAN(I,D): 4.1 cm2 Ao V2 VTI: 21.7 cm BRIAN(V,D): 3.6 cm2 sev ratio: 0.99 BRIAN indexed to BSA (cm^2/m^2): 1.9 MV E max rayshawn: 97.5 cm/sec TR max rayshawn: 296.7 cm/sec MV A max rayshawn: 129.1 cm/sec TR max P.2 mmHg MV E/A: 0.76 PA V2 max: 60.1 cm/sec Med Peak E' Rayshawn: 8.4 cm/sec PA V2 mean: 46.1 cm/sec E/E' med: 11.6 PA mean P.91 mmHg Lat Peak E' Rayshawn: 7.2 cm/sec E/E' lat: 13.6 E/e' average: 12.6 MV P1/2t: 58.9 msec MV P1/2t max rayshawn: 98.2 cm/sec MVA(P1/2t): 3.7 cm2 Reading Physician:04:45 PM
[2017-09-30] MEDS: MORPHINE 2 MG/ML INJ IV ×2 (00:18→01:15)
[2017-09-30] MEDS: PANTOPRAZOLE 40 MG VIAL IV ×2 (00:18→11:29)
[2017-09-30] MEDS: NITROGLYCERIN 0.3 MG SL TAB SL (01:15)
[2017-09-30] MEDS: NITROGLYCERIN 0.4 MG SL TAB SL (02:16)
--- NOTE | 2017-09-30 02:27 | PC.NURSE ---
Admitted to room 207. Having lots of CP 12/18. Rt notified ECG done. Nitroglycerin 0.4 mg. SL admin. after 5 mins pain level down to 3. Prior to NGT. administration B/P 165/97 & HR. 77. Rechecked B/P after NTG. 5 mins. 97/62 & HR. 90. Oriented to his room, instructed to use his call light & not to get up OOB W/O any assistance. Rechecked B/P 126/74 & HR. 78. Will monitor.
--- NOTE | 2017-09-30 02:48 | ED_ITS ---
HPI - Chest Pain General Chief Complaint: Chest Pain Stated Complaint: Chest pain Time Seen by Provider: 09/29/17 22:09 Source: patient, family, EMS, RN notes reviewed and old records reviewed Mode of arrival: EMS Limitations: no limitations History of Present Illness HPI narrative: Patient is a 77-year-old male with history of coronary artery disease and small cell lung cancer who presents with chest pain. He says it started today about 4:00 p.m. it comes in sharp intermittent worse. It can be quite painful at times her 20 breathes. It happened at rest and with exertion. It is in the center of his chest without radiation. He was given nitro prior to arrival which seemed to help with his pain. He was admitted this past week and discharged all 09/27/2017 with sepsis and pneumonia. During that admission he did get blood transfusion and he had a non contrasted CT. He is still on antibiotics for his pneumonia. He says that has improved he has not had any fever or productive cough. MD complaint: chest pain Onset (ago): hour(s) Duration: intermittent Onset: during rest and during exertion Pain location: substernal Severity: severe Related Data Home Medications Medication Instructions Recorded Confirmed carvedilol [Coreg] 25 mg PO BID #0 11/20/10 09/30/17 atorvastatin [Lipitor] 40 mg PO QDAY #0 03/21/17 09/30/17 folic acid 1 mg PO BID #0 04/08/17 09/30/17 ascorbic acid (vitamin C) 1,500 mg PO QDAY #0 06/01/17 09/30/17 calcium carbonate 1,200 mg PO Q DAY #0 06/01/17 09/30/17 cholecalciferol (vitamin D3) 2,000 iu PO QDAY #0 06/01/17 09/30/17 [Vitamin D3] magnesium 200 mg PO Q DAY #0 06/01/17 09/30/17 multivitamin [Multiple Vitamins] 1 tab PO QDAY #0 06/01/17 09/30/17 furosemide [Lasix] 40 mg PO DAILY PRN 09/08/17 09/30/17 methotrexate sodium 10 mg PO QWEEK 09/12/17 09/30/17 ondansetron [Zofran ODT] 4 mg SUBLINGUAL Q6HP PRN 09/24/17 09/30/17 Previous Rx's Medication Instructions Recorded abiraterone [Zytiga] 1,000 mg PO QDAY #120 tab 07/17/17 prednisone 5 mg PO BID #120 tab 07/17/17 potassium chloride [K-Tab] 20 meq PO DAILY #30 tab 09/05/17 azithromycin See Label Instructions .ROUTE 09/27/17 .COMPLEX #6 tab cephalexin [Keflex] 500 mg PO Q12H 7 Days #14 cap 09/27/17 Allergies Allergy/AdvReac Type Severity Reaction Status Date / Time niacin [NIACIN] AdvReac Severe Hypotension Verified 09/24/17 22:50 amlodipine [AMLODIPINE] AdvReac Unknown Verified 09/02/17 09:10 gemfibrozil [GEMFIBROZIL] AdvReac Unknown Verified 09/02/17 09:10 hydrochlorothiazide AdvReac Unknown Verified 09/02/17 09:10 [HYDROCHLOROTHIAZIDE] lisinopril [LISINOPRIL] AdvReac Unknown Verified 09/02/17 09:10 Review of Systems Review of Systems All systems reviewed & are unremarkable except as noted in HPI and below Constitutional Denies body ache(s), Denies chills, Reports fatigue, Denies fever(s) and Reports malaise Cardiovascular Reports as per HPI and Denies dyspnea Respiratory Denies change in phlegm color, Reports pain on inspiration and Denies dyspnea Gastrointestinal Gastrointestinal: Denies abdominal pain, Denies change in bowel habits, Denies diarrhea, Denies nausea and Denies vomiting Musculoskeletal Denies back pain, Denies muscle weakness, Denies numbness and Denies tingling Neurologic Denies numbness and Denies tingling Endocrine Reports fatigue Hematologic/Lymphatic Reports system reviewed and no additional complaints, except as docu PFSH Medical History 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) Thrombocytopenia (Chronic) Leukopenia (Chronic) Small cell lung cancer (Chronic) UTI (urinary tract infection) (Chronic) Coronary artery disease (Acute) Kidney stone (Acute) Social History household members: significant other Smoking Status: Former smoker alcohol intake: never Exam Initial Vital Signs Initial Vital Signs: Vital Signs Pulse Rate 91 H 09/29/17 22:00 Respiratory Rate 18 09/29/17 22:00 Blood Pressure 153/79 H 09/29/17 22:00 Pulse Oximetry 97 09/29/17 22:00 Const General: cooperative, No acute distress and frail appearing Nutritional Appearance: average body habitus Eyes General: appearance normal, both eyes and all related structures Neck Neck: full ROM, no meningeal signs and No JVD Resp Effort & Inspection: normal respiratory effort, able to speak in complete sentences, no respiratory distress and no use of accessory muscles Auscultation: clear to auscultation bilaterally, no rales, no rhonchi and no wheezes Cardio Rate: regular rate Rhythm: regular rhythm Heart Sounds: no click, no gallops, no murmurs and no rubs Pulses: normal peripheral pulses GI Inspection: non-distended Palpation: soft, no hepatosplenomegaly, No guarding, No pulsatile mass and No tender Auscultation: normal bowel sounds Skin General: no rashes or lesions noted, No jaundice and No petechiae Neuro General: alert, oriented x3, gait normal and no focal motor deficits Speech: speech normal Course Orders Ordered: ED Orders 09/29/17 22:10 EKG-12 Lead Routine 09/29/17 22:13 EKG-12 Lead Stat 09/29/17 22:14 XR chest 2V Stat 09/29/17 22:17 B Type Natriuretic Peptide Stat Complete Blood Count AUTO DIFF Stat Comprehensive Metabolic Panel Stat Lipase Stat Partial Thromboplastin Time Stat Prothrombin Time INR Stat Troponin with CK Cardiac Panel Stat 09/29/17 22:25 Type and Screen Stat 09/29/17 22:55 CT angio chest PE protocol Stat 09/29/17 23:28 Urine Microscopic Stat 09/30/17 EKG-12 Lead Routine 09/30/17 01:27 Consult to Physician Routine 09/30/17 05:00 Complete Blood Count AUTO DIFF Stat Troponin I Stat Sodium Chloride (Normal Saline 0.9%) 1,000 mls @ 150 mls/hr IV CONT JOCELINE Last Infusion: 09/30/17 01:02 Dose: 150 mls/hr Admin: 09/29/17 22:32 Dose: 150 mls/hr Sodium Chloride (Normal Saline 0.9%) 1,000 mls @ 125 mls/hr IV CONT JOCELINE Last Admin: 09/30/17 02:19 Dose: Morphine Sulfate (Morphine) 2 mg IV Q4HR PRN PRN Reason: Pain, Moderate (4-6) Nitroglycerin (Nitrostat) 0.4 mg SL [id number] PRN PRN Reason: Chest Pain Last Admin: 09/30/17 02:16 Dose: 0.4 mg Discontinued Medications Morphine Sulfate (Morphine) 2 mg IV NOW ONE Stop: 09/30/17 00:12 Last Admin: 09/30/17 00:18 Dose: 2 mg Morphine Sulfate (Morphine) 2 mg IV NOW ONE Stop: 09/30/17 01:05 Last Admin: 09/30/17 01:15 Dose: 2 mg Nitroglycerin (Nitrostat) 0.3 mg SL NOW ONE Stop: 09/29/17 22:29 Nitroglycerin (Nitrostat) 0.4 mg SL NOW ONE Stop: 09/29/17 22:31 Last Admin: 09/29/17 22:31 Dose: 0.4 mg Pantoprazole Sodium (Protonix) 40 mg IV NOW ONE Stop: 09/30/17 00:12 Last Admin: 09/30/17 00:18 Dose: 40 mg Consultations Consultation #1: Dr. Gunderson has been called and updated patient's symptoms and test results. Agrees with observation nitro morphine as needed for pain Vital Signs - 8 hr 09/29/17 22:00 09/29/17 22:10 09/29/17 22:30 Pulse Rate 91 H 91 H 90 Respiratory Rate 18 18 18 Blood Pressure 153/79 H Blood Pressure [Left Arm] 153/79 H 97/52 L Pulse Oximetry 97 96 96 09/29/17 22:31 09/29/17 23:00 09/30/17 00:00 Pulse Rate 91 H 82 79 Respiratory Rate 15 18 Blood Pressure 153/79 H Blood Pressure [Left Arm] 125/72 H 143/83 H Pulse Oximetry 97 98 09/30/17 01:00 09/30/17 02:16 Pulse Rate 76 77 Respiratory Rate 19 Blood Pressure 142/78 H 165/97 H Blood Pressure [Left Arm] Pulse Oximetry 96 MDM - Chest Pain Differential Diagnosis Likely other ( PE, dissection, lung cancer, pneumonia, pericarditis, pleurisy) Medical Records Data Attestation: I reviewed the patient's medical records. Lab Data Attestation: I reviewed the patient's lab results. Result diagrams: 09/29/17 22:17 09/29/17 22:17 Lab Results 06/22/18 06/22/18 06/22/18 Range/Units 22:17 22:17 22:17 WBC 1.7 L* D (4.5-11.0) X10^3/uL RBC 2.56 L (4.5-5.9) X10^6/uL Hgb 8.3 L (13.5-17.5) g/dL Hct 23.9 L (41-53) % MCV 93.4 (80-100) fL MCH 32.4 (26-34) PG MCHC 34.7 (30-36) % RDW 17.0 H (11.6-14.8) % Plt Count 17 L* (150-400) X10^3/uL Neut % (Auto) Not Reportable Lymph % (Auto) Not Reportable [place] % (Auto) Not Reportable Eos % (Auto) Not Reportable Baso % (Auto) Not Reportable Seg Neutrophils % 21.0 L (38-70) % Band Neutrophils % 8.0 H (3-7) % Lymphocytes % (Manual) 64.0 H (25-45) % Monocytes % (Manual) 7.0 (2-11) % Nucleated RBCs 1 H ( - 0) #/Diff Toxic Granulation Present H Platelet Estimate Decreased on smear RBC Morphology Not Reportable Anisocytosis 2+ H PT 10.7 (10.1-12.7) SECONDS INR 1.0 (0.9-1.3) APTT 25 L (26.4-36.2) SECONDS Sodium 140 (137-145) mmol/L Potassium 4.4 (3.4-5.1) mmol/L Chloride 107 (98-107) mmol/L Carbon Dioxide 23 (22-32) mmol/L BUN 25 H (9-20) mg/dL Creatinine 0.90 (0.66-1.25) mg/dL Estimated GFR > 60.0 (>60) mL/min BUN/Creatinine Ratio 27.8 H (6-22) Glucose 208 H (80-110) mg/dL Calcium 8.6 (8.4-10.2) mg/dL Total Bilirubin 0.5 (0.2-1.3) mg/dL AST 19 (17-59) IU/L ALT 30 (21-72) IU/L Alkaline Phosphatase 65 (38-126) U/L Total Creatine Kinase < 20 L (55-170) U/L Troponin I 0.024 (0.01-0.034) ng/mL B-Natriuretic Peptide 142.0 H (<100) Total Protein 5.7 L (6.3-8.2) g/dL Albumin 3.2 L (3.5-5.0) g/dL Globulin 2.5 (1.7-4.1) g/dL Albumin/Globulin Ratio 1.3 (1.0-2.8) Lipase 67 (23-300) U/L Urine RBC (0-5/HPF) Urine WBC (0-5/HPF) Urine Bacteria (None) Ur Culture Indicated? Micro UA Comment Blood Type Antibody Screen 09/29/17 09/29/17 Range/Units 22:25 23:28 WBC (4.5-11.0) X10^3/uL RBC (4.5-5.9) X10^6/uL Hgb (13.5-17.5) g/dL Hct (41-53) % MCV (80-100) fL MCH (26-34) PG MCHC (30-36) % RDW (11.6-14.8) % Plt Count (150-400) X10^3/uL Neut % (Auto) Lymph % (Auto) [place] % (Auto) Eos % (Auto) Baso % (Auto) Seg Neutrophils % (38-70) % Band Neutrophils % (3-7) % Lymphocytes % (Manual) (25-45) % Monocytes % (Manual) (2-11) % Nucleated RBCs ( - 0) #/Diff Toxic Granulation Platelet Estimate RBC Morphology Anisocytosis PT (10.1-12.7) SECONDS INR (0.9-1.3) APTT (26.4-36.2) SECONDS Sodium (137-145) mmol/L Potassium (3.4-5.1) mmol/L Chloride (98-107) mmol/L Carbon Dioxide (22-32) mmol/L BUN (9-20) mg/dL Creatinine (0.66-1.25) mg/dL Estimated GFR (>60) mL/min BUN/Creatinine Ratio (6-22) Glucose (80-110) mg/dL Calcium (8.4-10.2) mg/dL Total Bilirubin (0.2-1.3) mg/dL AST (17-59) IU/L ALT (21-72) IU/L Alkaline Phosphatase (38-126) U/L Total Creatine Kinase (55-170) U/L Troponin I (0.01-0.034) ng/mL B-Natriuretic Peptide (<100) Total Protein (6.3-8.2) g/dL Albumin (3.5-5.0) g/dL Globulin (1.7-4.1) g/dL Albumin/Globulin Ratio (1.0-2.8) Lipase (23-300) U/L Urine RBC 1-5/hpf (0-5/HPF) Urine WBC None seen (0-5/HPF) Urine Bacteria None seen (None) Ur Culture Indicated? Cult not indicated Micro UA Comment Not Reportable Blood Type O Positive Antibody Screen Negative Imaging Data CT scan - chest: Radiologist's impression: Patient report: No PE. Left lung irregular spiculated nodules. Confluent area in the lingula estimated to measure up to 2.7 cm. No evidence of pneumo thorax or effusion. Mediastinum prominent pre corneal lymph nodes measuring 2.2 cm. Small perihilar lymph nodes. The heart is large in size. Atherosclerosis including coronary artery calcifications. No dissection. Pulmonary arteries are unremarkable. Small hiatal hernia. Gallbladder removed. Intrahepatic duct dilation. Common duct partially seen measuring up to 1.9 cm. ECG Data Attestation: I personally reviewed and interpreted this ECG as follows: Prior ECG tracings: available for review Interpretation: EKG 1.: Normal sinus rhythm rate [address] changes Q- waves are noted in lead 3 and AVF which remained unchanged from previous EKG EKG 2. Sinus rhythm rate 91 no changes MDM Narrative Medical decision making narrative: Patient continues to have sharp intermittent episodes of chest pain. He has given nitro which seemed to help. He he is given morphine as well. CT from 09/25/2017 was done without contrast no mention of perihilar lymph nodes , the mass overall was thought to be decreasing in size. Patient's pain isn't quite consistent with on cardiac pain no he has coronary arterial disease. No CT no dissection. At this point he will be admitted for observation no for further testing and pain control Discharge Plan Departure Patient Disposition: Admitted as Observation Clinical Impression: Chest pain Discharge Date/Time: 09/30/17 01:15 Interventions: ED Discharge Assessment Last Done: 09/30/17 01:00 Admit Date/Time: 09/30/17 00:49 Admit Provider: Terry Gunderson
--- NOTE | 2017-09-30 02:51 | PC.NURSE ---
Dr. Gunderson paged to report, that patient CP is now @ 07/18. He also reported this will go on all night, NTG. will helped for awhile & my pain will continue. Awaiting call back.
[2017-09-30] MEDS: NITROGLYCERIN OINT 1 INCH/GM OINT...G. TOP (03:34)
--- NOTE | 2017-09-30 04:08 | PC.NURSE ---
0305 Dr. Gunderson called back reported pt. still C/O intermittent CP & after Nitro SL @ 0216 B/P was down from 165/97, HR.77 to 97/62 & HR. 90. Also reported [employer] reported that @ 0244 6-8 seconds of ectopy. Orders received to give Nitroglycerin ointment 1 inch now & every 6 hrs. Also ordered to changed Morphine from 2 mg. every 4 hrs. IVP to 4 mg. every 2 hrs. PRN. Checked B/P prior to applying NGT. paste 144/77 & HR. 71, Pt. sitting in the recliner & requested to sleep in the recliner. States pain get worse when lying in bed. Pt. is sleeping @ this time. Will monitor.
[2017-09-30 05:24] LABS: Hemoglobin 7.5 g/dL (13.5-17.5); Mean Corpuscular HGB Conc 34.3 % (30-36); Mean Corpuscular Hemoglobin 32.1 PG (26-34); Mean Corpuscular Volume 93.6 fL (80-100); Red Blood Cell Count 2.35 X10^6/uL (4.5-5.9); Red Cell Distribution Width 17.2 % (11.6-14.8); White Blood Cell Count 2.1 X10^3/uL (4.5-11.0)
[2017-09-30 05:33] LABS: Add Manual Diff / Slide Review YES; Platelet Count 10 X10^3/uL (150-400)
[2017-09-30 05:37] LABS: Troponin I 0.026 ng/mL (0.01-0.034)
[2017-09-30 06:21] LABS: Nucleated Red Blood Cells 1 #/Diff
[2017-09-30 06:22] LABS: Anisocytosis 2+; Dohle Bodies 1+; Hypochromasia 1+; Platelet Estimate Decreased on smear; Toxic Granulation Present
[2017-09-30] MEDS: SODIUM CHLORIDE 0.9% 1,000 ML 125 ML IV (09:23)
--- NOTE | 2017-09-30 10:50 | P.HP_ITS ---
History of Present Illness Date Patient Seen: 09/30/17 Time Patient Seen: 10:44 Chief complaint: Chest pain Narrative: 77-year-old male with known history of small cell lung cancer and metastatic prostate cancer presents with chest pain. He was here in the hospital a few days ago discharged just a few days ago he was treated for pneumonia and urinary tract infection and started having chest pain substernal in nature non exertional and non positional this started yesterday afternoon late came to the ER in the evening and has been worked up with the negative troponins and has had CT scan of the chest looking for PE or aneurysm both of these were negative. He denies any increased cough his respiratory symptoms that he had previously or actually improved and has been feeling better from the infection from last week. He denies any increased shortness of breath. The chest pain seemed to go away while he was in the emergency room is uncertain what they did make it better he did receive some nitroglycerin suppression some Protonix. He denies any nausea or vomiting. Patient History Medical History 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) Thrombocytopenia (Chronic) Leukopenia (Chronic) Small cell lung cancer (Chronic) UTI (urinary tract infection) (Acute) Kidney stone (Chronic) Family & Social History Social History: household members significant other Prior Living Arrangements Apartment/Condo Safety & Behavioral: Feels Safe in Current Yes Environment Been Physically Hurt or No Threatened By a Person Suicidal Ideation Description None Suicide Plan Description No Plan Tobacco & Substance use: Tobacco type cigarettes Smoking Status Former smoker alcohol intake never Substance Use Type does not use Meds Home Medications Medication Instructions Recorded Confirmed Type carvedilol [Coreg] 25 mg PO BID #0 11/20/10 09/30/17 History atorvastatin [Lipitor] 40 mg PO QDAY #0 03/21/17 09/30/17 History folic acid 1 mg PO BID #0 04/08/17 09/30/17 History ascorbic acid (vitamin C) 1,500 mg PO QDAY #0 06/01/17 09/30/17 History calcium carbonate 1,200 mg PO Q DAY #0 06/01/17 09/30/17 History cholecalciferol (vitamin D3) 2,000 iu PO QDAY #0 06/01/17 09/30/17 History [Vitamin D3] magnesium 200 mg PO Q DAY #0 06/01/17 09/30/17 History multivitamin [Multiple Vitamins] 1 tab PO QDAY #0 06/01/17 09/30/17 History abiraterone [Zytiga] 1,000 mg PO QDAY #120 tab 07/17/17 09/30/17 Rx prednisone 5 mg PO BID #120 tab 07/17/17 09/30/17 Rx potassium chloride [K-Tab] 20 meq PO DAILY #30 tab 09/05/17 09/30/17 Rx furosemide [Lasix] 40 mg PO DAILY PRN 09/08/17 09/30/17 History methotrexate sodium 10 mg PO QWEEK 09/12/17 09/30/17 History ondansetron [Zofran ODT] 4 mg SUBLINGUAL Q6HP PRN 09/24/17 09/30/17 History azithromycin See Label Instructions .ROUTE 09/27/17 09/30/17 Rx .COMPLEX #6 tab cephalexin [Keflex] 500 mg PO Q12H 7 Days #14 cap 09/27/17 09/30/17 Rx Allergies Allergy/AdvReac Type Severity Reaction Status Date / Time niacin [NIACIN] AdvReac Severe Hypotension Verified 09/24/17 22:50 amlodipine [AMLODIPINE] AdvReac Unknown Verified 09/02/17 09:10 gemfibrozil [GEMFIBROZIL] AdvReac Unknown Verified 09/02/17 09:10 hydrochlorothiazide AdvReac Unknown Verified 09/02/17 09:10 [HYDROCHLOROTHIAZIDE] lisinopril [LISINOPRIL] AdvReac Unknown Verified 09/02/17 09:10 Review of Systems Review of Systems All systems reviewed & are unremarkable except as noted in HPI and below Exam Vital Signs (past 8 hours): - 09/30/17 03:34 09/30/17 04:22 09/30/17 04:27 Temperature Pulse Rate 71 Respiratory Rate Blood Pressure 144/77 H Pulse Oximetry 97 97 09/30/17 06:29 09/30/17 06:55 09/30/17 08:38 Temperature 98.2 F 98.1 F Pulse Rate 100 H 70 78 Respiratory Rate 18 20 Blood Pressure 140/80 H 140/80 H 164/92 H Pulse Oximetry 95 97 Oxygen Delivery Method Room Air Narrative Exam Narrative: Elderly male no acute distress resting comfortably HEENT exam unremarkable Lungs no wheezing no rhonchi Heart regular rhythm Abdomen soft nontender Lower extremities trace edema Skin warm and dry Neuro exam awake alert no focal deficits Objective Labs Result Diagrams: 09/30/17 05:03 09/29/17 22:17 Labs: Laboratory Results - last 24 hr 09/29/17 09/29/17 09/29/17 22:17 22:17 22:17 WBC 1.7 L* D RBC 2.56 L Hgb 8.3 L Hct 23.9 L MCV 93.4 MCH 32.4 MCHC 34.7 RDW 17.0 H Plt Count 17 L* Neut % (Auto) Not Reportable Lymph % (Auto) Not Reportable Pitkin % (Auto) Not Reportable Eos % (Auto) Not Reportable Baso % (Auto) Not Reportable Seg Neutrophils % 21.0 L Band Neutrophils % 8.0 H Lymphocytes % (Manual) 64.0 H Monocytes % (Manual) 7.0 Eosinophils % (Manual) Myelocytes % Nucleated RBCs 1 H Toxic Granulation Present H Dohle Bodies Platelet Estimate Decreased on smear RBC Morphology Not Reportable Hypochromasia Anisocytosis 2+ H PT 10.7 INR 1.0 APTT 25 L Sodium 140 Potassium 4.4 Chloride 107 Carbon Dioxide 23 BUN 25 H Creatinine 0.90 Estimated GFR > 60.0 BUN/Creatinine Ratio 27.8 H Glucose 208 H Calcium 8.6 Total Bilirubin 0.5 AST 19 ALT 30 Alkaline Phosphatase 65 Total Creatine Kinase < 20 L Troponin I 0.024 B-Natriuretic Peptide 142.0 H Total Protein 5.7 L Albumin 3.2 L Globulin 2.5 Albumin/Globulin Ratio 1.3 Lipase 67 Urine RBC Urine WBC Urine Bacteria Ur Culture Indicated? Micro UA Comment Blood Type Antibody Screen 09/29/17 09/29/17 09/30/17 22:25 23:28 05:03 WBC 2.1 L RBC 2.35 L Hgb 7.5 L Hct 22.0 L MCV 93.6 MCH 32.1 MCHC 34.3 RDW 17.2 H Plt Count 10 L* Neut % (Auto) Not Reportable Lymph % (Auto) Not Reportable Pitkin % (Auto) Not Reportable Eos % (Auto) Not Reportable Baso % (Auto) Not Reportable Seg Neutrophils % 20.0 L Band Neutrophils % 21.0 H Lymphocytes % (Manual) 49.0 H Monocytes % (Manual) 8.0 Eosinophils % (Manual) 1.0 L Myelocytes % 1.0 H Nucleated RBCs 1 H Toxic Granulation Present H Dohle Bodies 1+ H Platelet Estimate Decreased on smear RBC Morphology Not Reportable Hypochromasia 1+ H Anisocytosis 2+ H PT INR APTT Sodium Potassium Chloride Carbon Dioxide BUN Creatinine Estimated GFR BUN/Creatinine Ratio Glucose Calcium Total Bilirubin AST ALT Alkaline Phosphatase Total Creatine Kinase Troponin I B-Natriuretic Peptide Total Protein Albumin Globulin Albumin/Globulin Ratio Lipase Urine RBC 1-5/hpf Urine WBC None seen Urine Bacteria None seen Ur Culture Indicated? Cult not indicated Micro UA Comment Not Reportable Blood Type O Positive Antibody Screen Negative 09/30/17 05:03 WBC RBC Hgb Hct MCV MCH MCHC RDW Plt Count Neut % (Auto) Lymph % (Auto) Pitkin % (Auto) Eos % (Auto) Baso % (Auto) Seg Neutrophils % Band Neutrophils % Lymphocytes % (Manual) Monocytes % (Manual) Eosinophils % (Manual) Myelocytes % Nucleated RBCs Toxic Granulation Dohle Bodies Platelet Estimate RBC Morphology Hypochromasia Anisocytosis PT INR APTT Sodium Potassium Chloride Carbon Dioxide BUN Creatinine Estimated GFR BUN/Creatinine Ratio Glucose Calcium Total Bilirubin AST ALT Alkaline Phosphatase Total Creatine Kinase Troponin I 0.026 B-Natriuretic Peptide Total Protein Albumin Globulin Albumin/Globulin Ratio Lipase Urine RBC Urine WBC Urine Bacteria Ur Culture Indicated? Micro UA Comment Blood Type Antibody Screen Assessment & Plan Plan: Assessment/Plan Narrative: One. Chest pain PE has been ruled out as well as aneurysm with the CT scan. The troponin has been just mildly borderline home but without any place change roof bolter to checks 6 hr apart. EKG shows some nonspecific EKG ST changes. He does have the end of small cell lung cancer that certainly could be playing a role here and he had a recent diagnosis of pneumonia and also could be playing a role. Pericarditis is possible as well as pleurisy. Plan to do echo of heart looking for pericardial effusion or signs of pericarditis. Another troponin to be checked out continue the nitroglycerin also will add some Carafate slurry to see if that might be GI related. The patient will be remain remain on observation and will re-evaluate in the morning possibly home tomorrow. 2. Pancytopenia secondary to recent chemotherapy platelet count is getting very low but there has been no signs of any bleeding at this point plan to recheck platelets in the morning also recheck his hematocrit he is down a little lower. Quality VTE Deep Vein Thrombosis/Pulmonary Embolism Present on Admission: No
[2017-09-30] MEDS: ABIRATERONE PO (11:22)
--- NOTE | 2017-09-30 11:24 | CM.DANOTE ---
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 Is this patient on Medicare? Yes Is the admit diagnosis the same? Yes Comment Etiology unclear, waiting further tests Prior Living Arrangements Apartment/Condo Household Members significant other Type of transporation used prior to Relies on Others admit Independent with ADL's Yes Is patient alert and oriented? Yes Needs Assistance With Managing Medications Home Chores / Shopping Caregiver for Another No DME Already Rented / Owned Bath Bench FWW / Walker Comment has 4ww from [employer] Referrals Initiated None needed Comment Pt sees social worker psychiatric Eugenie Pulliam at the [facility]. She is alerted that pt is here and will check in with him and Vanessa today. Discharge Plan Home Additional Comment d/c plan unclear at this point . Full dx and treatment plan are newly in process. Review Status In Process Next Review Type Discharge Review DCP: assessment: case received, EMR reviewed. Pt is a 77 year old male who READMITTED last night to care of hospitalist team for chest pain after recent d/c home on 09/27/17 for pneumonia. PCP: Dr. Cameron Payer: Medicare and [employer] Oncology team at [facility] sees pt for treatment of metastatic prostate cancer and small cell lung carcinoma. [facility] heating worker Eugenie Pulliam reported that she has worked frequently with pt at the clinic and will see him in the hospital today. Met now with pt and his significant other Vanessa Chrison (cell: [phone]). Introduced self and role. Per MD, pt's tests for pneumonia and PE came back negative and to have an Echo today 09/30/17. Vanessa reports that they are pleased that pt has completed his last chemo treatment (09/19) although he will be on some ongoing oral medications. She says MONIKA Traore has been of great help in getting financial assistance to pay for the oncology medications. She notes that pt has only recently started using a 4ww and was doing well after d/c home a few days ago with no needs until the chest pain began. Pt has very supportive local friends who provide assist when needed. Pt and Sig Other currently do not anticipate any d/c planning needs and preference is home when medically stable. Plan: SW to follow closely for possible d/c home with supportive Sig Other when medically stable pending test results and etiology. Pt to continue being followed by [facility] at baseline. MONIKA Moore
[2017-09-30] MEDS: HYDROCORTISONE 100 MG/2 ML VIAL 50 MG IV ×2 (11:29→18:39)
[2017-09-30 12:46] LABS: Troponin I 0.025 ng/mL (0.01-0.034)
[2017-09-30] MEDS: cephALEXin 250 MG CAPSULE 500 MG PO (13:11)
[2017-09-30] MEDS: SUCRALFATE 1 GM/10 ML ORAL SUSP PO ×3 (13:11→20:55)
[2017-09-30] MEDS: POTASSIUM CHLORIDE 20 MEQ TAB PO (13:12)
[2017-09-30] MEDS: ASCORBIC ACID 500 MG TABLET 1500 MG PO (13:12)
[2017-09-30] MEDS: AZITHROMYCIN 250 MG TABLET 500 MG PO (13:12)
[2017-09-30] MEDS: CALCIUM CARBONATE 600 MG TABLET 1200 MG PO (13:13)
--- NOTE | 2017-09-30 13:53 | PC.NURSE ---
Patient refused am nitro patch, states it is not helping and he would like to see what his pain does without it. Patient states he discussed this with Dr. Aguilera when he came in.
--- NOTE | 2017-09-30 16:16 | PC.NURSE ---
Addendum entered by Frankie Rick R.N. 09/30/17 16:52: is sitting up to chair at this time and reports feeling no pain and is comfortable. Patient is cooperative and sana to make needs known to staff. Refused to have sched. Nitro cream to best placed per emar orders, this was charted. Original Note: patient is A&O x3
[2017-09-30] MEDS: ATORVASTATIN 20 MG TABLET 40 MG PO (20:54)
[2017-09-30] MEDS: CARVEDILOL 25 MG TABLET PO (20:55)
[2017-09-30] MEDS: predniSONE 5 MG TABLET PO (20:55)
[2017-10-01 00:10] VITALS: O2SAT 97
[2017-10-01 04:30] VITALS: BP 192/83; PULSE 63; RESP 18; TEMP 36.2; O2SAT 99
[2017-10-01 04:55] VITALS: BP 192/83; PULSE 63
[2017-10-01] MEDS: NITROGLYCERIN OINT 1 INCH/GM OINT...G. TOP (04:55)
[2017-10-01 05:53] LABS: Hematocrit 23.2 % (41-53); Mean Corpuscular HGB Conc 34.5 % (30-36); Mean Corpuscular Hemoglobin 32.1 PG (26-34); Mean Corpuscular Volume 93.1 fL (80-100); Red Blood Cell Count 2.49 X10^6/uL (4.5-5.9); White Blood Cell Count 6.1 X10^3/uL (4.5-11.0)
[2017-10-01 05:57] LABS: Blood Urea Nitrogen 16 mg/dL (9-20); Calcium 8.9 mg/dL (8.4-10.2); Carbon Dioxide 27 mmol/L (22-32); Chloride 105 mmol/L (98-107); Estimated Glomerular Filt Rate > 60.0 mL/min (>60); Glucose 142 mg/dL (80-110); HEMOLYSIS < 15 (0-50); Potassium 4.2 mmol/L (3.4-5.1); Sodium 140 mmol/L (137-145)
[2017-10-01 06:04] VITALS: BP 189/98; PULSE 62
[2017-10-01 06:05] LABS: Add Manual Diff / Slide Review YES; Platelet Count 12 X10^3/uL (150-400)
[2017-10-01 06:09] LABS: Troponin I < 0.012 ng/mL (0.01-0.034)
[2017-10-01 06:11] VITALS: BP 189/98; PULSE 62
[2017-10-01] MEDS: CARVEDILOL 25 MG TABLET PO (06:11)
--- NOTE | 2017-10-01 06:40 | PC.NURSE ---
0605 Dr. Aguilera Notifed with elevated B/P 183/110 & rechecked 189/98, HR 62. Pt. requesting to take his B/P med. now. Dr. Aguilera ordered & okay to administer 0900 dose of Coreg 25 mg. now. Admin. @ 0611. Pt. denies any CP all shift. Was able to sleep in his bed last night. Will report to day RN & monitor.
[2017-10-01] MEDS: ABIRATERONE PO (07:01)
[2017-10-01 07:23] LABS: Anisocytosis 3+; Neutrophils Absolute Manual 4148 /uL (3000-5900); Total Cells Counted 100
[2017-10-01] MEDS: CALCIUM CARBONATE 600 MG TABLET 1200 MG PO (07:53)
[2017-10-01] MEDS: ASCORBIC ACID 500 MG TABLET 1500 MG PO (07:53)
[2017-10-01] MEDS: SUCRALFATE 1 GM/10 ML ORAL SUSP PO (07:53)
[2017-10-01] MEDS: PANTOPRAZOLE 40 MG VIAL IV (07:54)
[2017-10-01] MEDS: AZITHROMYCIN 250 MG TABLET PO (07:54)
[2017-10-01] MEDS: POTASSIUM CHLORIDE 20 MEQ TAB PO (07:54)
[2017-10-01] MEDS: predniSONE 5 MG TABLET PO (07:55)
[2017-10-01 08:00] VITALS: BP 149/81; PULSE 58; RESP 18; TEMP 36.6; O2SAT 97
[2017-10-01] MEDS: SODIUM CHLORIDE 0.9% FLUSH 10 ML IV (09:24)
[2017-10-01] MEDS: cephALEXin 250 MG CAPSULE 500 MG PO ×2 (10:26)
[2017-10-01] MEDS: FUROSEMIDE 40 MG TABLET PO (10:26)
--- NOTE | 2017-10-01 14:39 | PM.DS.1 ---
History of Present Illness Chief complaint: Chest pain Narrative: 77-year-old male with known history of small cell lung cancer and metastatic prostate cancer presents with chest pain. He was here in the hospital a few days ago discharged just a few days ago he was treated for pneumonia and urinary tract infection and started having chest pain substernal in nature non exertional and non positional this started yesterday afternoon late came to the ER in the evening and has been worked up with the negative troponins and has had CT scan of the chest looking for PE or aneurysm both of these were negative. He denies any increased cough his respiratory symptoms that he had previously or actually improved and has been feeling better from the infection from last week. He denies any increased shortness of breath. The chest pain seemed to go away while he was in the emergency room is uncertain what they did make it better he did receive some nitroglycerin suppression some Protonix. He denies any nausea or vomiting. Discharge Providers Date of admission: 09/30/17 00:49 Primary care physician: Gurdeep Cameron MD Consults: 09/30/17 01:27 Consult to Physician Routine Comment: Consulting Provider: Terry Gunderson Reason for consultation: admission Has provider been notified: Yes Discharge provider: Amos Aguilera MD Summary Discharge Diagnosis: One. Chest pain myocardial infarction ruled out 2. Pancytopenia secondary to recent chemotherapy Hospital Course: Patient mid to the hospital with chest pain was very severe EKG was unremarkable and had normal troponins. Echo was done no signs of pericardial effusion no big change in his CT of his lungs from the lung cancer. He did get treated with Carafate for possible esophagitis that seemed to help hip pain basically went away etiology is still uncertain possibly just musculoskeletal possibly esophagitis. We will treat with Carafate for 1 month. No other change in medications. Status at Discharge Functional status at discharge: independent ambulation Overall status at discharge: patient is back to baseline Time Spent with Patient Less than 30 minutes Exam Vital Signs (past 8 hours): - 10/01/17 08:00 Temperature 98 F Pulse Rate 58 L Respiratory Rate 18 Blood Pressure 149/81 H Pulse Oximetry 97 Oxygen Delivery Method Room Air,CPAP Objective Labs Result Diagrams: 10/01/17 05:35 10/01/17 05:35 Labs: Laboratory Results - last 24 hr 10/01/17 10/01/17 05:35 05:35 WBC 6.1 D RBC 2.49 L Hgb 8.0 L Hct 23.2 L MCV 93.1 MCH 32.1 MCHC 34.5 RDW 17.0 H Plt Count 12 L* Neut % (Auto) Not Reportable Lymph % (Auto) Not Reportable Arthur % (Auto) Not Reportable Eos % (Auto) Not Reportable Baso % (Auto) Not Reportable Total Counted 100 Seg Neutrophils % 24.0 L Band Neutrophils % 44.0 H Lymphocytes % (Manual) 25.0 Monocytes % (Manual) 1.0 L Metamyelocytes % 4.0 H Myelocytes % 2.0 H Neutrophils # (Manual) 4148 Differential Comment RBC Morphology Not Reportable Anisocytosis 3+ H Sodium 140 Potassium 4.2 Chloride 105 Carbon Dioxide 27 BUN 16 Creatinine 0.80 Estimated GFR > 60.0 BUN/Creatinine Ratio 20.0 Glucose 142 H Calcium 8.9 Troponin I < 0.012 Discharge Plan Discharge Plan Patient Disposition: Home, Self-Care Provider Discharge Instructions Diet: Diet as Tolerated Discharge Data Primary Care Provider: Gurdeep Cameron V Attending Provider: Terry Gunderson Admit Date/Time: 09/30/17 00:49 Quality VTE Deep Vein Thrombosis/Pulmonary Embolism Present on Admission: No
== END 2017-10-01 15:14 | disposition home or self-care (01) ==
LOC: ED 09-30 00:21 → AC 09-30 00:50
PROVIDERS: Internal Medicine; Admitting Provider Internal Medicine; Emergency Provider Emergency Medicine; Family Provider Internal Medicine; PCP Internal Medicine; Visit Provider Internal Medicine
DX: R07.9 Chest pain, unspecified (principal); I25.10 Atherosclerotic heart disease of native coronary artery without angina pectoris; C34.90 Malignant neoplasm of unspecified part of unspecified bronchus or lung; C79.82 Secondary malignant neoplasm of genital organs; C79.51 Secondary malignant neoplasm of bone; D69.6 Thrombocytopenia, unspecified; D72.819 Decreased white blood cell count, unspecified; D61.810 Antineoplastic chemotherapy induced pancytopenia; Z87.891 Personal history of nicotine dependence
CPT/HCPCS: 36415; 36592; 71046; 71275; 80048; 80053; 81003; 81015; 82550; 82553; 83690; 83880; 84484; 85025; 85610; 85730; 86850; 86900; 86901; 93005; 93010; 93306; 96374; 96375; 99215; 99283; 99285; G0378; C9113; J1720; J2270; Q9967

== ENCOUNTER → 2017-10-03 08:31 | Outpatient (CLI) | payer MEDICARE, OTHER, SELFPAY ==
[2017-09-24 22:51] VITALS: BMI 29.9
[2017-09-30 01:48] VITALS: BMI 33.5
[2017-10-03 08:49] LABS: Add Manual Diff / Slide Review NO; Basophils Percent Auto 0.7 % (0-2); Eosinophils Percent Auto 0.3 % (2-4); Hematocrit 24.7 % (41-53); Hemoglobin 8.6 g/dL (13.5-17.5); Lymphocytes Percent Auto 8.6 % (25-40); Mean Corpuscular HGB Conc 34.9 % (30-36); Mean Corpuscular Hemoglobin 32.4 PG (26-34); Mean Corpuscular Volume 92.9 fL (80-100); Monocytes Percent Auto 6.4 % (3-14); Neutrophils Absolute Auto 12700 /uL (3000-5900); Red Blood Cell Count 2.65 X10^6/uL (4.5-5.9); White Blood Cell Count 15.1 X10^3/uL (4.5-11.0)
[2017-10-03 08:51] LABS: Platelet Count 23 X10^3/uL (150-400)
[2017-10-03 08:57] LABS: HEMOLYSIS < 15 (0-50); Potassium 3.4 mmol/L (3.4-5.1)
[2017-10-03 08:58] LABS: Alanine Aminotransferase 32 IU/L (21-72); Albumin 3.4 g/dL (3.5-5.0); Albumin Globulin Ratio 1.4 (1.0-2.8); Alkaline Phosphatase 82 U/L (38-126); Aspartate Aminotransferase 24 IU/L (17-59); Bilirubin Total 0.8 mg/dL (0.2-1.3); Blood Urea Nitrogen 20 mg/dL (9-20); Calcium 8.9 mg/dL (8.4-10.2); Carbon Dioxide 30 mmol/L (22-32); Chloride 101 mmol/L (98-107); Estimated Glomerular Filt Rate > 60.0 mL/min (>60); Globulin 2.4 g/dL (1.7-4.1); Glucose 191 mg/dL (80-110); Sodium 140 mmol/L (137-145); Total Protein 5.8 g/dL (6.3-8.2)
[2017-10-03 09:03] LABS: Anisocytosis 2+; Platelet Estimate Decreased on smear
[2017-10-03 09:04] LABS: Tear Drop Cells 1+
--- NOTE | 2017-10-03 09:34 | PC.NURSE ---
0955: critical value reported by Benjamin in lab: Platelets 23; information passed on to JOE
[2017-10-03 11:48] VITALS: BP 145/85; PULSE 85; RESP 18; TEMP 36.7
[2017-10-03 12:04] VITALS: BP 162/94; PULSE 82; RESP 18; TEMP 36.8
[2017-10-03 13:48] VITALS: BP 167/90; PULSE 83; RESP 18; TEMP 37.1
--- NOTE | 2017-10-04 08:20 | TAR.TRANSNT ---
o2 sat 95% on room air
[2017-10-04 08:31] VITALS: BP 120/65; PULSE 71; RESP 16; TEMP 36.9; O2SAT 95
[2017-10-04 08:57] VITALS: BP 143/80; PULSE 70; RESP 16; TEMP 36.9
[2017-10-04 09:20] VITALS: BP 110/70; PULSE 71; RESP 14; TEMP 36.9
[2017-10-04 11:15] VITALS: BP 153/86; PULSE 72; RESP 18; TEMP 36.9
== END ==
PROVIDERS: Family Provider Internal Medicine; PCP Internal Medicine; Visit Provider Nurse Practitioner Gerontology
DX: C61 Malignant neoplasm of prostate (principal); I82.702 Chronic embolism and thrombosis of unspecified veins of left upper extremity
CPT/HCPCS: 36415; 36430; 80053; 85025; 86850; 86900; 86901; P9016

== ENCOUNTER → 2017-10-04 11:23 | Outpatient (CLI) | payer MEDICARE, OTHER, SELFPAY ==
[2017-09-30 01:48] VITALS: BMI 33.5
--- NOTE | 2017-10-04 11:25 | DI.US.S_ITS ---
PROCEDURE: US PERIP VENOUS UP EXTREM LT INDICATIONS: Left upper extremity chronic embolism TECHNIQUE: Real-time imaging, as well as color and pulse Doppler interrogation, was performed of the left upper extremity deep veins from the inferior neck to the antecubital fossa. COMPARISON: [facility], [facility] VENOUS UP EXTREM LT, 09/14/2017, 10:07. FINDINGS: Occlusive thrombus is identified within it the brachial, axillary, and subclavian veins. There also is thrombus evident within the brachial vein. No definite thrombus is appreciated within the cephalic vein. The imaged portions of the internal jugular vein are patent and otherwise unremarkable. IMPRESSION: Interval increase in the size of the left upper extremity deep vein thrombus. Dictated by: Sundar Bishop M.D. on 10/04/2017 at 11:00 Approved by: Sundar Bishop M.D. on 10/04/2017 at 11:02
== END ==
PROVIDERS: Family Provider Internal Medicine; PCP Internal Medicine; Visit Provider Internal Medicine Hematology & Oncology
DX: I74.2 Embolism and thrombosis of arteries of the upper extremities (principal)
CPT/HCPCS: 93971

== ENCOUNTER → 2017-10-05 08:38 | Outpatient (CLI) | payer MEDICARE, OTHER, SELFPAY ==
[2017-09-30 01:48] VITALS: BMI 33.5
[2017-10-05 08:54] LABS: Hematocrit 29.9 % (41-53); Hemoglobin 10.3 g/dL (13.5-17.5); Mean Corpuscular HGB Conc 34.5 % (30-36); Mean Corpuscular Hemoglobin 31.4 PG (26-34); Mean Corpuscular Volume 91.2 fL (80-100); Platelet Count 43 X10^3/uL (150-400); Red Blood Cell Count 3.27 X10^6/uL (4.5-5.9); Red Cell Distribution Width 16.9 % (11.6-14.8); White Blood Cell Count 17.9 X10^3/uL (4.5-11.0)
[2017-10-05 08:55] LABS: Add Manual Diff / Slide Review YES
[2017-10-05 09:15] LABS: Neutrophils Absolute Manual 13246 /uL (3000-5900); Nucleated Red Blood Cells 1 #/Diff; Total Cells Counted 100
[2017-10-05 09:16] LABS: Macrocytosis 2+; Polychromasia 2+
== END ==
PROVIDERS: Family Provider Internal Medicine; PCP Internal Medicine; Visit Provider Internal Medicine Hematology & Oncology
DX: C61 Malignant neoplasm of prostate (principal)
CPT/HCPCS: 36415; 85025

== ENCOUNTER → 2017-10-17 14:08 | Outpatient (CLI) | payer MEDICARE, OTHER, SELFPAY ==
[2017-09-30 01:48] VITALS: BMI 33.5
--- NOTE | 2017-10-17 14:10 | DI.RAD.S_ITS ---
PROCEDURE: XR CHEST 2V INDICATIONS: recent pneumonia TECHNIQUE: 2 views of the chest were acquired. COMPARISON: [facility], CT, CT ANGIO CHEST PE PROTOCOL, 09/29/2017, 22:53. [facility], CR, XR CHEST 1V, 09/24/2017, 19:03. [facility], CR, XR CHEST 2V, 09/29/2017, 21:55. FINDINGS: Surgical changes and devices: None. Lungs and pleura: Bibasilar opacities may be residual pneumonia. No pleural effusions or pneumothorax. Mediastinum: Mediastinal contours are normal. Heart size is normal. Bones and chest wall: No suspicious bony abnormalities. Soft tissues appear unremarkable. IMPRESSION: Bibasilar opacities may be residual pneumonia. Continued followup suggested. Dictated by: Belinda Martin M.D. on 10/17/2017 at 15:14 Approved by: Belinda Martin M.D. on 10/17/2017 at 15:16
== END ==
PROVIDERS: PCP Internal Medicine; Visit Provider Internal Medicine Hematology & Oncology
DX: Z87.01 Personal history of pneumonia (recurrent) (principal); Z09 Encounter for follow-up examination after completed treatment for conditions other than malignant neoplasm
CPT/HCPCS: 71046

== ENCOUNTER → 2017-10-31 08:34 | Outpatient (CLI) | payer MEDICARE, OTHER, SELFPAY ==
[2017-09-30 01:48] VITALS: BMI 33.5
[2017-10-31 08:58] LABS: INR 3.9 (0.9-1.3); Prothrombin Time 43.8 SECONDS (10.1-12.7)
== END ==
PROVIDERS: Family Provider Internal Medicine; PCP Internal Medicine; Visit Provider Nurse Practitioner Gerontology
DX: I82.409 Acute embolism and thrombosis of unspecified deep veins of unspecified lower extremity (principal)
CPT/HCPCS: 36415; 85610

== ENCOUNTER → 2017-11-01 08:26 | Outpatient (CLI) | payer MEDICARE, OTHER, SELFPAY ==
[2017-09-30 01:48] VITALS: BMI 33.5
[2017-11-01 09:21] LABS: Prothrombin Time 44.3 SECONDS (10.1-12.7)
--- NOTE | 2017-11-01 09:22 | PC.NURSE ---
Addendum entered by Abby Horvath R.N. 11/03/17 14:53: Meaghan e-scribed Xarelto to [facility]. Pt called and told him to start Xarelto Monday 11/06 per Meaghan's instructions and stop warfarin now. Verbalized understanding. Original Note: Pt is requesting to be placed on Xarelto instead of Coumadin. He would like to go on a sailing trip soon and said Xarelto would offer him the freedom of travel without having to monitor INR's. Explained to pt that Meaghan will be here tomorrow and we will place note in chart, requesting this.
== END ==
PROVIDERS: Family Provider Internal Medicine; PCP Internal Medicine; Visit Provider Nurse Practitioner Gerontology
DX: I82.409 Acute embolism and thrombosis of unspecified deep veins of unspecified lower extremity (principal)
CPT/HCPCS: 36415; 85610

== ENCOUNTER → 2017-12-29 09:35 | Outpatient (CLI) | payer MEDICARE, OTHER, SELFPAY ==
[2017-09-30 01:48] VITALS: BMI 33.5
[2017-12-29 10:09] LABS: Add Manual Diff / Slide Review NO; Basophils Percent Auto 0.2 % (0-2); Eosinophils Percent Auto 1.7 % (2-4); Hematocrit 38.9 % (41-53); Hemoglobin 13.6 g/dL (13.5-17.5); Lymphocytes Percent Auto 20.3 % (25-40); Mean Corpuscular HGB Conc 34.9 % (30-36); Mean Corpuscular Hemoglobin 34.3 PG (26-34); Monocytes Percent Auto 7.6 % (3-14); Neutrophils Absolute Auto 4000 /uL (3000-5900); Neutrophils Percent Auto 70.2 % (50-75); Platelet Count 74 X10^3/uL (150-400); Red Blood Cell Count 3.97 X10^6/uL (4.5-5.9); Red Cell Distribution Width 14.3 % (11.6-14.8); White Blood Cell Count 5.7 X10^3/uL (4.5-11.0)
[2017-12-29 10:32] LABS: HEMOLYSIS < 15 (0-50)
[2017-12-29 11:13] LABS: Alanine Aminotransferase 25 IU/L (21-72); Albumin Globulin Ratio 1.7 (1.0-2.8); Alkaline Phosphatase 57 U/L (38-126); Aspartate Aminotransferase 25 IU/L (17-59); BUN Creatinine Ratio 18.2 (6-22); Bilirubin Total 0.8 mg/dL (0.2-1.3); Blood Urea Nitrogen 20 mg/dL (9-20); Calcium 9.6 mg/dL (8.4-10.2); Carbon Dioxide 35 mmol/L (22-32); Chloride 102 mmol/L (98-107); Estimated Glomerular Filt Rate > 60.0 mL/min (>60); Globulin 2.4 g/dL (1.7-4.1); Glucose 153 mg/dL (80-110); Potassium 4.1 mmol/L (3.4-5.1); Sodium 144 mmol/L (137-145); Total Protein 6.4 g/dL (6.3-8.2)
--- NOTE | 2017-12-29 11:39 | DI.CT.S_ITS ---
PROCEDURE: CT CHEST ABD PEL W CON INDICATIONS: A 77 year-old man with prostate cancer. post treatment imaging surveillance. TECHNIQUE: After the administration of oral and intravenous contrast, 5 mm thick sections acquired from the lung apices to the symphysis. 2.5 mm thick coronal and sagittal reformats were acquired. Additional 7 mm thick coronal maximum intensity projection (MIP) reformats acquired through the lungs. Optional 10-minute delayed imaging may be performed from the kidneys to the bladder. For radiation dose reduction, the following was used: automated exposure control, adjustment of mA and/or kV according to patient size. COMPARISON: [facility], CT, CHEST/ABD/PEL WITH CONTRAST, 07/10/2017, 9:19. [place], [place], BONE SCAN WHOLE BODY, 05/25/2017, 12:54. [place], [place], PET NECK TO MID THIGH, 07/28/2017, 9:54. [facility], CT, CT CHEST WO CON, 09/25/2017, 9:23. [facility], CT, CT ANGIO CHEST PE PROTOCOL, 09/29/2017, 22:53. FINDINGS: Image quality: Excellent. CHEST: Lungs: There is a 5 mm left apical nodule, unchanged in size. No acute airspace opacity or pleural effusion. The pleural opacities in lingula are likely scars/atelectasis. No pneumothorax or hemothorax. Central and peripheral airways appear patent and normal in caliber. Mediastinum: No mediastinal hematomas. Heart size is moderately increased. Moderate coronary atherosclerosis. No pericardial effusion. Thoracic aorta and pulmonary arteries demonstrate normal size and enhancement. No mediastinal or hilar adenopathy. Esophagus is normal in caliber. Small hiatal hernia. Chest wall: There is sclerotic appearance of the right scapula, suspicious for metastases. No axillary or supraclavicular adenopathy. Thyroid gland is normal. ABDOMEN: Solid organs: Liver is normal in size and enhancement. Gallbladder is surgically absent. Biliary system is non-dilated. Pancreas enhances normally. Spleen is normal in size and enhancement. No adrenal nodules. Both kidneys enhance normally, without hydronephrosis. Bilateral cortical hypodensities are most likely cysts. There is perinephric stranding bilaterally. Peritoneum and bowel: Extensive sigmoid diverticulosis. No CT evidence for acute diverticulitis. No free fluid or air. Bowel loops demonstrate normal caliber. Nodes and vessels: No retroperitoneal or mesenteric adenopathy. Aorta and inferior vena cava are normal in size and enhancement. Mild atherosclerotic calcification aorta. 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 PELVIS: Genitourinary: Bladder wall thickness is normal. Miscellaneous: No inguinal hernias. Mildly enlarged inguinal hernias present bilaterally measuring up to 1.6 cm and the left and 1.4 cm on the right. The lymph nodes demonstrate fatty benoit and unchanged in size, likely reactive. Bones: There is sclerosis in the left proximal femur, suspicious for metastasis. Pelvic ring and hip joints appear intact. No vertebral compression fractures. Degenerative changes are noted in the lumbar spine. IMPRESSION: 1. Stable lingular opacities, most likely scars/atelectasis. 2. Small 5 mm left apical nodule is unchanged. 3. Stable sclerotic bone lesions involving the right scapula and left proximal femur compatible with metastasis. 4. Diverticulosis without acute diverticulitis. 5. Bilateral mildly enlarged inguinal lymph nodes demonstrate fatty benoit and stability, probably reactive. Dictated by: Belinda Martin M.D. on 12/29/2017 at 13:00 Approved by: Belinda Martin M.D. on 12/29/2017 at 15:34
== END ==
PROVIDERS: PCP Internal Medicine; Visit Provider Nurse Practitioner Gerontology
DX: C61 Malignant neoplasm of prostate (principal); C34.90 Malignant neoplasm of unspecified part of unspecified bronchus or lung; C79.51 Secondary malignant neoplasm of bone; K57.30 Diverticulosis of large intestine without perforation or abscess without bleeding; I25.10 Atherosclerotic heart disease of native coronary artery without angina pectoris; K44.9 Diaphragmatic hernia without obstruction or gangrene; R59.0 Localized enlarged lymph nodes
CPT/HCPCS: 36415; 71260; 74177; 80053; 84153; 85025; Q9967

== ENCOUNTER → 2018-01-12 08:36 | Outpatient (CLI) | payer MEDICARE, OTHER, SELFPAY ==
[2017-09-30 01:48] VITALS: BMI 33.5
--- NOTE | 2018-01-12 | DI.MRI.S_ITS ---
PROCEDURE: MR HEAD/BRAIN WO/W CON INDICATIONS: LUNG CANCER TECHNIQUE: Noncontrast axial T1 spin echo, axial T2 fast spin echo, sagittal and axial FLAIR, coronal T2 fast spin echo, axial gradient echo, axial diffusion and ADC through the brain. After the administration of contrast, axial and coronal T1 spin echo with fat saturation through the brain. COMPARISON: [facility], MR, BRAIN W&WO CONTRAST, 06/26/2017, 7:12. FINDINGS: Image quality: Excellent. CSF spaces: Basal cisterns are patent. No extra-axial fluid collections. Ventricles are normal in size and shape. Brain: No midline shift. No intracranial bleeds or masses. No abnormal intracranial enhancement. There is cerebral volume loss for age. There is periventricular white matter chronic small vessel ischemic change. The brainstem appears normal. Diffusion-weighted images demonstrate no acute ischemic insults. No chronic ischemic insults. Normal intravascular flow voids are present. Skull and face: Calvarial marrow is normal in signal. Orbits appear normal. Sinuses: Right maxillary sinus disease as before IMPRESSION: Right maxillary sinus disease (as before). No evidence of intracranial metastatic disease. Dictated by: Israel Hicks M.D. on 01/12/2018 at 9:53 Approved by: Israel Hicks M.D. on 01/12/2018 at 9:57
== END ==
PROVIDERS: PCP Internal Medicine; Visit Provider Radiology Radiation Oncology
DX: C34.90 Malignant neoplasm of unspecified part of unspecified bronchus or lung (principal); J32.0 Chronic maxillary sinusitis
CPT/HCPCS: 70553; A9579

== ENCOUNTER 2018-02-22 09:27 | Emergency (ER) | payer MEDICARE, OTHER, SELFPAY ==
[2017-09-30 01:48] VITALS: BMI 33.5
[2018-02-22 09:48] VITALS: BP 184/94; PULSE 58; RESP 18; TEMP 36.9; O2SAT 96
--- NOTE | 2018-02-22 10:20 | DI.CT.S_ITS ---
PROCEDURE: CT HEAD/BRAIN WO CON INDICATIONS: Left arm weakness and shaking, small cell lung cancer TECHNIQUE: Noncontrast 4.5 mm thick angled axial sections acquired from the foramen magnum to the vertex, with coronal and sagittal reformats. For radiation dose reduction, the following was used: automated exposure control, adjustment of mA and/or kV according to patient size. COMPARISON: [facility], MR, BRAIN W&WO CONTRAST, 06/26/2017, 7:12. [facility], MR, MR HEAD/BRAIN WO/W CON, 01/12/2018, 8:48. FINDINGS: Image quality: Excellent. CSF spaces: Basal cisterns are patent. No extra-axial fluid collections. The ventricles are symmetric in size and shape. Brain: No intracranial bleeds or masses. There is cerebral volume loss for age, with resultant ventricular and sulcal prominence. There are periventricular and deep white matter chronic small vessel ischemic changes. There is intracranial internal carotid artery atherosclerosis. Skull and face: Calvarium and visualized facial bones appear intact, without suspicious lesions. Sinuses: Visualized sinuses and mastoids are clear. IMPRESSION: No acute intracranial process is seen. If it would be helpful for clinical management decision making, please consider a dedicated repeat MRI without and with contrast for further evaluation. Dictated by: Tramaine Meng M.D. on 02/22/2018 at 9:36 Approved by: Tramaine Meng M.D. on 02/22/2018 at 9:38
--- NOTE | 2018-02-22 10:22 | ED_ITS ---
HPI - Neuro Symptoms/Deficit General Chief Complaint: Neuro Symptoms/Deficit Stated Complaint: thinks he's had seizures Time Seen by Provider: 02/22/18 09:59 Source: patient Mode of arrival: ambulatory Limitations: no limitations History of Present Illness HPI Narrative: Patient is a 78-year-old male who has left arm shaking. He says that there were 3 episodes yesterday where his left arm which shake his legs get weak and he was down. No time did he have chest pain heart palpitations dizziness lightheadedness or shortness of breath. He has a history of small- cell lung cancer and prostate cancer he finished the whole brain radiation which was done as a preventative measure. He also has a history of a left upper arm DVT from a PICC line is and history of PE 13 years ago. He is currently on Xarelto. He has not had any further episodes today. Related Data Home Medications Medication Instructions Recorded Confirmed atorvastatin [Lipitor] 40 mg PO DAILY #0 03/21/17 02/22/18 ascorbic acid (vitamin C) 1,500 mg PO QDAY #0 06/01/17 02/22/18 calcium carbonate 1,200 mg PO Q DAY #0 06/01/17 02/22/18 cholecalciferol (vitamin D3) 2,000 iu PO QDAY #0 06/01/17 02/22/18 [Vitamin D3] magnesium 200 mg PO Q DAY #0 06/01/17 02/22/18 multivitamin [Multiple Vitamins] 1 tab PO QDAY #0 06/01/17 02/22/18 methotrexate sodium 10 mg PO QWEEK 09/12/17 02/22/18 metformin 500 mg PO BID 01/02/18 02/22/18 abiraterone [Zytiga] 1,000 mg PO DAILY 02/22/18 02/22/18 carvedilol 6.25 mg PO BID 02/22/18 02/22/18 citalopram 10 mg PO DAILY 02/22/18 02/22/18 difluprednate [Durezol] 1 drp OPHTHALMIC (EYE) DIRECTED 02/22/18 02/22/18 doxazosin 8 mg PO QPM 02/22/18 02/22/18 folic acid 0.8 mg PO DAILY 02/22/18 02/22/18 prednisone 5 mg PO BID 02/22/18 02/22/18 Previous Rx's Medication Instructions Recorded potassium chloride [K-Tab] 20 meq PO DAILY #30 tab 09/05/17 nitroglycerin [Nitrostat] 0.4 mg SUBLINGUAL [id number] PRN #30 10/01/17 tab rivaroxaban [Xarelto] 20 mg PO DAILY #90 tab 02/07/18 Allergies Allergy/AdvReac Type Severity Reaction Status Date / Time niacin [NIACIN] AdvReac Severe Hypotension Verified 09/24/17 22:50 amlodipine [AMLODIPINE] AdvReac Unknown Verified 09/02/17 09:10 gemfibrozil [GEMFIBROZIL] AdvReac Unknown Verified 09/02/17 09:10 hydrochlorothiazide AdvReac Unknown Verified 09/02/17 09:10 [HYDROCHLOROTHIAZIDE] lisinopril [LISINOPRIL] AdvReac Unknown Verified 09/02/17 09:10 Review of Systems Review of Systems All systems reviewed & are unremarkable except as noted in HPI and below Constitutional Denies chills, Denies fever(s), Denies lethargy and Reports weakness Eyes Denies change in vision, Denies eye discharge, Denies irritation and Denies loss of vision Cardiovascular Denies chest pain, Denies irregular heart rhythm, Denies lightheadedness, Denies palpitations, Denies dyspnea, Denies dyspnea on exertion and Denies orthopnea Respiratory Denies cough, Denies dyspnea, Denies dyspnea on exertion and Denies wheezing Gastrointestinal Gastrointestinal: Denies abdominal pain, Denies change in bowel habits, Denies diarrhea, Denies nausea and Denies vomiting Musculoskeletal Reports as per HPI Integumentary/Breasts Denies pruritus, Denies erythema, Denies rash and Denies wounds Neurologic Denies loss of vision and Reports weakness Endocrine Denies palpitations Allergic/Immunologic Denies wheezing PFSH Medical History 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) Thrombocytopenia (Chronic) Leukopenia (Chronic) Small cell lung cancer (Chronic) Kidney stone (Chronic) UTI (urinary tract infection) (Inactive) Social History household members: significant other Smoking Status: Former smoker alcohol intake: never Exam Initial Vital Signs Initial Vital Signs: Vital Signs Temperature 98.4 F 02/22/18 09:48 Pulse Rate 58 L 02/22/18 09:48 Respiratory Rate 18 02/22/18 09:48 Blood Pressure 184/94 H 02/22/18 09:48 Pulse Oximetry 96 02/22/18 09:48 GENERAL: elderly male appears chronically ill but in no acute distress awake and alert x3 HEENT: Head atraumatic,EOMI, pupils reactive, face symmetric CARDIOVASCULAR: Regular rate and rhythm without murmurs, rubs or gallops. RESPIRATORY: Breath sounds equal bilaterally, no wheezes rales or rhonchi. ABDOMEN: Soft, nontender. Normoactive bowel sounds all 4 quadrants. No guarding or rebound. EXTREMITIES: Normal range of motion, no clubbing or edema. Neurovascularly intact NEUROLOGICAL: Alert and oriented x4.Normal gait and speech. Cranial nerves II through XII grossly intact. Pediatric Speech Therapist strength equal bilaterally good finger-nose he does have intention tremor in the left. He has nerve damage in his ulnar nerve whole left to 4th and 5th finger are bent. SKIN: Warm, dry, no laceration, no petechiae, no rashes or lesions. Scores NIH Stroke Scale Level of Conciousness: Alert, keenly responsive Ask month/age: Answers both questions correctly. Open/close eyes, close hand: Performs both tasks correctly Best gaze horizontal: Normal Visual rangel: No visual loss Facial palsy: Normal symetrical movement Left arm drift: No drift for full 10 sec Right arm drift: No drift for full 10 sec Left leg drift: No drift for full 10 sec Right leg drift: No drift for full 10 sec Limb ataxia: Absent Sensory on face/arms/legs: Normal, no sensory loss Best language: No aphasia, normal Dysarthria: Normal Extinction or inattention: No abnormality Total NIH Stroke scale score: 0 Course Orders Ordered: ED Orders 02/22/18 10:15 Complete Blood Count AUTO DIFF Stat Comprehensive Metabolic Panel Stat Prothrombin Time INR Stat Troponin & CK Cardiac Panel Stat 02/22/18 10:19 EKG-12 Lead Stat 02/22/18 10:20 CT head/brain wo con Stat 02/22/18 10:37 Lactate (Lactic Acid) Stat Discontinued Medications Sodium Chloride (Normal Saline 0.9%) 1,000 mls @ 150 mls/hr IV CONT JOCELINE Last Admin: 02/22/18 11:13 Dose: 150 mls/hr Vital Signs - 8 hr 02/22/18 11:15 02/22/18 13:03 Pulse Rate 57 L 62 Respiratory Rate 18 16 Blood Pressure [Right Arm] 170/96 H 178/89 H Pulse Oximetry 99 99 MDM - Neuro Symptoms/Deficit Lab Data Attestation: I reviewed the patient's lab results. Result diagrams: 02/22/18 10:15 02/22/18 10:15 Lab Results 02/22/18 02/22/18 02/22/18 Range/Units 10:15 10:15 10:15 WBC 6.2 (4.5-11.0) X10^3/uL RBC 3.83 L (4.5-5.9) X10^6/uL Hgb 13.0 L (13.5-17.5) g/dL Hct 36.8 L (41-53) % MCV 96.1 (80-100) fL MCH 34.0 (26-34) PG MCHC 35.4 (30-36) % RDW 14.7 (11.6-14.8) % Plt Count 70 L (150-400) X10^3/uL Neut % (Auto) 60.0 (50-75) % Lymph % (Auto) 28.4 (25-40) % [place] % (Auto) 9.5 (3-14) % Eos % (Auto) 1.6 L (2-4) % Baso % (Auto) 0.5 (0-2) % Neut # (Auto) 3700 (4116-4897) /uL PT 24.9 H (10.1-12.7) SECONDS INR 2.3 H (0.9-1.3) Sodium 143 (137-145) mmol/L Potassium 3.3 L (3.4-5.1) mmol/L Chloride 102 (98-107) mmol/L Carbon Dioxide 32 (22-32) mmol/L BUN 23 H (9-20) mg/dL Creatinine 1.00 (0.66-1.25) mg/dL Estimated GFR > 60.0 (>60) mL/min BUN/Creatinine Ratio 23.0 H (6-22) Glucose 119 H (80-110) mg/dL Lactate (0.7-2.1) mmol/L Calcium 9.1 (8.4-10.2) mg/dL Total Bilirubin 1.4 H (0.2-1.3) mg/dL AST 30 (17-59) IU/L ALT 30 (21-72) IU/L Alkaline Phosphatase 52 (38-126) U/L Total Creatine Kinase 35 L (55-170) U/L CK-MB (CK-2) TNP CK-MB (CK-2) Rel Index TNP Troponin I 0.037 H (0.01-0.034) ng/mL Total Protein 5.9 L (6.3-8.2) g/dL Albumin 3.9 (3.5-5.0) g/dL Globulin 2.0 (1.7-4.1) g/dL Albumin/Globulin Ratio 2.0 (1.0-2.8) 02/22/18 Range/Units 10:37 WBC (4.5-11.0) X10^3/uL RBC (4.5-5.9) X10^6/uL Hgb (13.5-17.5) g/dL Hct (41-53) % MCV (80-100) fL MCH (26-34) PG MCHC (30-36) % RDW (11.6-14.8) % Plt Count (150-400) X10^3/uL Neut % (Auto) (50-75) % Lymph % (Auto) (25-40) % [place] % (Auto) (3-14) % Eos % (Auto) (2-4) % Baso % (Auto) (0-2) % Neut # (Auto) (4177-5156) /uL PT (10.1-12.7) SECONDS INR (0.9-1.3) Sodium (137-145) mmol/L Potassium (3.4-5.1) mmol/L Chloride (98-107) mmol/L Carbon Dioxide (22-32) mmol/L BUN (9-20) mg/dL Creatinine (0.66-1.25) mg/dL Estimated GFR (>60) mL/min BUN/Creatinine Ratio (6-22) Glucose (80-110) mg/dL Lactate 1.6 (0.7-2.1) mmol/L Calcium (8.4-10.2) mg/dL Total Bilirubin (0.2-1.3) mg/dL AST (17-59) IU/L ALT (21-72) IU/L Alkaline Phosphatase (38-126) U/L Total Creatine Kinase (55-170) U/L CK-MB (CK-2) CK-MB (CK-2) Rel Index Troponin I (0.01-0.034) ng/mL Total Protein (6.3-8.2) g/dL Albumin (3.5-5.0) g/dL Globulin (1.7-4.1) g/dL Albumin/Globulin Ratio (1.0-2.8) Imaging Data CT scan - head: Radiologist's impression: I was immediately available in the department for consultation. Documentation has been reviewed. I agree with assessment and plan. ECG Data Attestation: I personally reviewed and interpreted this ECG as follows: Prior ECG tracings: available for review Interpretation: sinus rhythm rate [address] changes [place] interval 162, QRS 104, QTC is 452 he does have Q-waves noted in inferior leads which remain unchanged since September 2017 MDM Narrative Medical decision making narrative: patient received a small amount of fluids he actually had an MRI in January which did not show any metastatic disease. He does have a tremor In his left hand. was concerned that he may have had a seizure ice when this is not consistent with seizure. No sign of infection. He when he initially was discharged he stood up and felt a little dizzy lightheaded he sat back down. I discussed with he and his to get more IV fluids. However he wanted to try and stand back up again at this time he had a steady gait did not feel dizzy or lightheaded and wanted a milkshake. Discharge Plan Departure Patient Disposition: Home Clinical Impression: Tremor of left hand Discharge Date/Time: 02/22/18 13:03 Interventions: ED Discharge Assessment Last Done: 02/22/18 13:03 Instructions: Benign Essential Tremor Activity Restrictions/Additional Instructions: *You have been diagnosed with tremor *What to do: Blood work and CT scan of head within normal limits today. Recommend *Continue to take medications as directed *Follow up with your primary care provider in 2-3 days *Return to ER if you should have any new, worsening or concerning symptoms Prescriptions: No Action atorvastatin [Lipitor] 40 MG tablet 40 mg PO DAILY Qty: 0 RF: 0 magnesium 200 MG tablet 200 mg PO Q DAY Qty: 0 RF: 0 cholecalciferol (vitamin D3) [Vitamin D3] 2,000 UNIT capsule 2,000 iu PO QDAY Qty: 0 RF: 0 multivitamin [Multiple Vitamins] 1 EACH tablet 1 tab PO QDAY Qty: 0 RF: 0 calcium carbonate 600 MG tablet 1,200 mg PO Q DAY Qty: 0 RF: 0 ascorbic acid (vitamin C) 500 MG tablet 1,500 mg PO QDAY Qty: 0 RF: 0 potassium chloride [K-Tab] 20 mEq Tablet Extended Release 20 meq PO DAILY Qty: 30 RF: 0 methotrexate sodium 2.5 mg Tablet 10 mg PO QWEEK RF: 0 metformin 500 mg Tablet 500 mg PO BID RF: 0 rivaroxaban [Xarelto] 20 mg Tablet 20 mg PO DAILY Qty: 90 RF: 0 nitroglycerin [Nitrostat] 0.4 mg Tablet, Sublingual 0.4 mg Sublingual [id number] PRN (Reason: Chest Pain) Qty: 30 RF: 0 citalopram 10 mg tablet 10 mg PO DAILY RF: 0 prednisone 5 mg tablet 5 mg PO BID RF: 0 doxazosin 8 mg tablet 8 mg PO QPM RF: 0 difluprednate [Durezol] 0.05 % drops 1 drp ophthalmic (eye) DIRECTED RF: 0 folic acid 400 mcg Tablet 0.8 mg PO DAILY RF: 0 abiraterone [Zytiga] 250 MG tablet 1,000 mg PO DAILY RF: 0 carvedilol 6.25 mg tablet 6.25 mg PO BID RF: 0 Referrals: Gurdeep Cameron MD [Primary Care Provider] -
[2018-02-22 10:28] LABS: Add Manual Diff / Slide Review NO; Basophils Percent Auto 0.5 % (0-2); Eosinophils Percent Auto 1.6 % (2-4); Hematocrit 36.8 % (41-53); Lymphocytes Percent Auto 28.4 % (25-40); Mean Corpuscular HGB Conc 35.4 % (30-36); Mean Corpuscular Volume 96.1 fL (80-100); Monocytes Percent Auto 9.5 % (3-14); Neutrophils Absolute Auto 3700 /uL (3000-5900); Platelet Count 70 X10^3/uL (150-400); Red Blood Cell Count 3.83 X10^6/uL (4.5-5.9); Red Cell Distribution Width 14.7 % (11.6-14.8); White Blood Cell Count 6.2 X10^3/uL (4.5-11.0)
[2018-02-22 10:31] LABS: INR 2.3 (0.9-1.3); Prothrombin Time 24.9 SECONDS (10.1-12.7)
[2018-02-22 10:36] LABS: Alanine Aminotransferase 30 IU/L (21-72); Albumin 3.9 g/dL (3.5-5.0); Alkaline Phosphatase 52 U/L (38-126); Aspartate Aminotransferase 30 IU/L (17-59); Bilirubin Total 1.4 mg/dL (0.2-1.3); Blood Urea Nitrogen 23 mg/dL (9-20); Calcium 9.1 mg/dL (8.4-10.2); Carbon Dioxide 32 mmol/L (22-32); Chloride 102 mmol/L (98-107); Creatine Kinase 35 U/L (55-170); Estimated Glomerular Filt Rate > 60.0 mL/min (>60); Glucose 119 mg/dL (80-110); HEMOLYSIS 25 (0-50); Potassium 3.3 mmol/L (3.4-5.1); Sodium 143 mmol/L (137-145); Total Protein 5.9 g/dL (6.3-8.2)
[2018-02-22 10:48] LABS: Troponin I 0.037 ng/mL (0.01-0.034)
[2018-02-22 11:06] LABS: Lactate (Lactic Acid) 1.6 mmol/L (0.7-2.1)
[2018-02-22] MEDS: SODIUM CHLORIDE 0.9% 1,000 ML 150 ML IV (11:13)
[2018-02-22 11:15] VITALS: BP 170/96; PULSE 57; RESP 18; O2SAT 99
[2018-02-22 13:03] VITALS: BP 178/89; PULSE 62; RESP 16; O2SAT 99
--- NOTE | 2018-02-24 15:15 | PC.NURSE ---
pt states feeling better maybe it was dehydration
--- NOTE | 2018-03-02 19:21 | PC.NURSE ---
normal saline infused without difficulty. 600 cc infused. at 1300.
== END 2018-02-22 13:03 | disposition home or self-care (01) ==
PROVIDERS: Emergency Provider Emergency Medicine; PCP Internal Medicine
DX: R25.1 Tremor, unspecified (principal)
CPT/HCPCS: 36415; 36591; 70450; 80053; 82550; 83605; 84484; 85025; 85610; 93005; 96360; 96361; 99283; 99285; 99291

== ENCOUNTER 2018-03-29 11:12 | Inpatient (IN) | payer MEDICARE, OTHER, SELFPAY ==
[2017-09-30 01:48] VITALS: BMI 33.5
[2018-03-29] VITALS (7 sets, daily range): BP systolic 119–169; BP diastolic 71–91; PULSE 68–81; RESP 18–21; TEMP 36.9–37.3; O2SAT 91–98; BMI 31.9
--- NOTE | 2018-03-29 12:12 | ED_ITS ---
HPI - Weakness General Chief complaint: Weakness Stated complaint: extra weakness,nausea,stomach pain Time Seen by Provider: 03/29/18 11:48 Source: patient, family and other (Friends) Mode of arrival: ambulatory Limitations: no limitations History of Present Illness HPI Narrative: This is a 78-year-old male who comes in with complaint increasing weakness. Patient has had a slow decline according to him and his family but has been much worse over the last week. Patient has had low-grade fevers up to 100.4 F, he has not had any chills, he is not complaining of any chest pain or shortness of breath. He is normally on oxygen. He has had some abdominal pain that was initially left lower quadrant. He was started on Cipro about 4 days ago which he has been taking regularly. He has not been eating or drinking much and has felt quite nauseated. He has had stools and per history had a black stool at 1 point he had a Hemoccult check which was negative. He has been urinating but states that it seems like it is less and darker. Patient is currently under treatment for metastatic prostate cancer as well as small cell carcinoma. Patient received radiation to the although he had no metastases this was prophylactic. He received chemo and radiation as well and tolerated this well although it did ?knock him down a little?. Related Data Home Medications Medication Instructions Recorded Confirmed atorvastatin [Lipitor] 40 mg PO BEDTIME #0 03/21/17 03/29/18 ascorbic acid (vitamin C) 1,500 mg PO QDAY #0 06/01/17 03/29/18 calcium carbonate 1,200 mg PO Q DAY #0 06/01/17 03/29/18 cholecalciferol (vitamin D3) 2,000 iu PO QDAY #0 06/01/17 03/29/18 [Vitamin D3] magnesium 200 mg PO Q DAY #0 06/01/17 03/29/18 multivitamin [Multiple Vitamins] 1 tab PO QDAY #0 06/01/17 03/29/18 methotrexate sodium 10 mg PO QWEEK 09/12/17 03/29/18 metformin 500 mg PO BID 01/02/18 03/29/18 abiraterone [Zytiga] 1,000 mg PO DAILY 02/22/18 03/29/18 carvedilol 6.25 mg PO BID 02/22/18 03/29/18 citalopram 10 mg PO DAILY 02/22/18 03/29/18 doxazosin 8 mg PO QPM 02/22/18 03/29/18 folic acid 0.8 mg PO DAILY 02/22/18 03/29/18 prednisone 5 mg PO BID 02/22/18 03/29/18 mupirocin calcium [Bactroban] 1 applic TOPICAL BEDTIME 03/29/18 03/29/18 timolol 1 dose EYE-LEFT BID 03/29/18 03/29/18 Previous Rx's Medication Instructions Recorded potassium chloride [K-Tab] 20 meq PO DAILY #30 tab 09/05/17 nitroglycerin [Nitrostat] 0.4 mg SUBLINGUAL [id number] PRN #30 10/01/17 tab rivaroxaban [Xarelto] 20 mg PO DAILY #90 tab 02/07/18 Allergies Allergy/AdvReac Type Severity Reaction Status Date / Time chlorthalidone Allergy Verified 03/29/18 11:41 hydroxychloroquine Allergy Verified 03/29/18 11:41 [From Plaquenil] niacin [NIACIN] AdvReac Severe Hypotension Verified 03/29/18 11:40 amlodipine [AMLODIPINE] AdvReac Unknown Verified 03/29/18 11:40 gemfibrozil [GEMFIBROZIL] AdvReac Unknown Verified 03/29/18 11:40 hydrochlorothiazide AdvReac Unknown Verified 03/29/18 11:40 [HYDROCHLOROTHIAZIDE] lisinopril [LISINOPRIL] AdvReac Unknown Verified 03/29/18 11:40 Review of Systems Review of Systems All systems reviewed & are unremarkable except as noted in HPI and below Constitutional Denies chills, Reports fever(s), Denies lethargy and Denies weakness Cardiovascular Denies chest pain, Denies irregular heart rhythm, Denies lightheadedness, Denies palpitations, Reports dyspnea (not increasing) and Denies orthopnea Respiratory Reports dyspnea (not increasing) Gastrointestinal Gastrointestinal: Reports abdominal pain (lower abdominal), Reports melena, Denies change in bowel habits, Denies diarrhea, Reports nausea and Denies vomiting Genitourinary Denies hematuria, Denies flank pain, Denies urinary incontinence and Denies urinary urgency Neurologic Denies weakness Endocrine Denies palpitations PFSH Medical History 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) Thrombocytopenia (Chronic) Leukopenia (Chronic) Small cell lung cancer (Chronic) Coronary artery disease (Acute) Depression (Acute) Diabetes type 2, controlled (Acute) History of nephrolithotomy with removal of calculi (Acute) History of pulmonary embolism (Acute) Hyperlipidemia (Acute) Hypertension (Acute) Rheumatoid arthritis (Acute) Thrombophlebitis of arm, left (Acute) Kidney stone (Chronic) UTI (urinary tract infection) (Inactive) Surgical History H/O coronary angioplasty (Acute) History of appendectomy (Acute) History of cholecystectomy (Acute) Social History household members: significant other Smoking Status: Former smoker alcohol intake: never Exam Narrative Exam Narrative: GENERAL: Alert and oriented x three, elderly male in mild distress. HEENT: Head normocephalic, atraumatic, EOMI, pupils reactive, face symmetric, moist mucous membranes NECK: Supple, full range of motion CARDIOVASCULAR: Regular rate and rhythm without murmurs, rubs or gallops. RESPIRATORY: Breath sounds equal bilaterally, no wheezes rales or rhonchi. ABDOMEN: Soft, mild central lower abdominal tenderness. Normoactive bowel sounds all 4 quadrants. No guarding or rebound, rigidity, no mass : No CVA tenderness EXTREMITIES: Normal range of motion, no clubbing or edema. Neurovascularly intact NEUROLOGICAL: Cranial nerves II through XII grossly intact. Moving all extremities SKIN: Warm, dry, no petechiae, no rashes or lesions. Initial Vital Signs Initial Vital Signs: Vital Signs Temperature 99.1 F 03/29/18 11:28 Pulse Rate 68 03/29/18 11:28 Respiratory Rate 20 03/29/18 11:28 Blood Pressure 119/71 03/29/18 11:28 Pulse Oximetry 93 03/29/18 11:28 Course Orders Ordered: ED Orders 03/29/18 11:51 Complete Blood Count AUTO DIFF Stat Comprehensive Metabolic Panel Stat Lactate (Lactic Acid) Stat Lipase Stat 03/29/18 12:21 EKG-12 Lead Stat 03/29/18 12:40 Blood Culture Stat 03/29/18 13:25 CT abdomen pelvis w con Stat 03/29/18 13:44 UA Complete [Urinalysis and Microscopic] Stat 03/29/18 14:52 XR chest 1V Stat 03/29/18 18:34 Education, smoking cessation ONGOING 03/29/18 18:45 Consult to Speech Therapy Evaluate & Treat Acetaminophen (Tylenol) 650 mg PO Q6HR PRN PRN Reason: As Needed for Fever/Mild Pain Atorvastatin Calcium (Lipitor) 40 mg PO BEDTIME [facility] Carvedilol (Coreg) 6.25 mg PO BID [facility] Citalopram Hydrobromide (Celexa) 10 mg PO DAILY [facility] Doxazosin Mesylate (Cardura) 8 mg PO QPM [facility] Folic Acid (Folic Acid) 0.8 mg PO DAILY [facility] Methotrexate (Methotrexate) 10 mg PO Sa@0900 [facility] Mupirocin (Bactroban Cream) 1 applic TOP BEDTIME [facility] Abiraterone [Zytiga] (1,000 Mg) 1,000 mg PO DAILY [facility] Non-Formulary Medication (Patient's Own Medication) 0 each EYE-LEFT BID [facility] Potassium Chloride (Klor-Con M20) 20 meq PO DAILY [facility] Prednisone (Deltasone) 5 mg PO BID [facility] Rivaroxaban (Xarelto) 20 mg PO DAILY [facility] Sennosides (Senna) 17.2 mg PO BEDTIME [facility] Timolol Maleate (Timoptic 0.5%) 1 drops EYE-LEFT BID [facility] Discontinued Medications Sodium Chloride (Normal Saline 0.9%) 1,000 mls @ 1,000 mls/hr IV BOLUS ONE Stop: 03/29/18 13:08 Last Infusion: 03/29/18 14:48 Dose: 0 mls/hr Admin: 03/29/18 12:35 Dose: 1,000 mls/hr Ceftriaxone Sodium/Dextrose (Rocephin) 1 gm in 50 mls @ 100 mls/hr IV NOW ONE Stop: 03/29/18 15:52 Last Infusion: 03/29/18 16:25 Dose: 0 mls/hr Admin: 03/29/18 15:32 Dose: 100 mls/hr Ondansetron HCl (Zofran) 4 mg IV NOW ONE Stop: 03/29/18 12:10 Last Admin: 03/29/18 12:36 Dose: 4 mg Vital Signs - 8 hr 03/29/18 13:56 03/29/18 15:48 03/29/18 16:25 Temperature Pulse Rate 74 77 81 Respiratory Rate 18 21 20 Blood Pressure 131/72 Blood Pressure [Right Arm] 169/84 H 149/80 H Pulse Oximetry 95 95 98 03/29/18 16:35 Temperature 98.8 F Pulse Rate 76 Respiratory Rate 20 Blood Pressure 146/91 H Blood Pressure [Right Arm] Pulse Oximetry 91 MDM - Weakness Lab Data Attestation: I reviewed the patient's lab results. Result diagrams: 03/29/18 11:51 03/29/18 11:51 Lab Results 03/29/18 03/29/18 03/29/18 Range/Units 11:51 11:51 11:51 WBC 3.9 L (4.5-11.0) X10^3/uL RBC 3.35 L (4.5-5.9) X10^6/uL Hgb 11.3 L (13.5-17.5) g/dL Hct 32.3 L (41-53) % MCV 96.6 (80-100) fL MCH 33.9 (26-34) PG MCHC 35.1 (30-36) % RDW 14.4 (11.6-14.8) % Plt Count 82 L (150-400) X10^3/uL Neut % (Auto) 71.7 (50-75) % Lymph % (Auto) 14.2 L (25-40) % [place] % (Auto) 11.1 (3-14) % Eos % (Auto) 2.8 (2-4) % Baso % (Auto) 0.2 (0-2) % Neut # (Auto) 2800 (5701-6474) /uL Sodium 138 (137-145) mmol/L Potassium 3.2 L (3.4-5.1) mmol/L Chloride 98 (98-107) mmol/L Carbon Dioxide 32 (22-32) mmol/L BUN 15 (9-20) mg/dL Creatinine 1.10 (0.66-1.25) mg/dL Estimated GFR > 60.0 (>60) mL/min BUN/Creatinine Ratio 13.6 (6-22) Glucose 108 (80-110) mg/dL Lactate 1.4 (0.7-2.1) mmol/L Calcium 8.8 (8.4-10.2) mg/dL Total Bilirubin 2.1 H (0.2-1.3) mg/dL AST 23 (17-59) IU/L ALT 23 (21-72) IU/L Alkaline Phosphatase 65 (38-126) U/L Total Protein 5.8 L (6.3-8.2) g/dL Albumin 3.3 L (3.5-5.0) g/dL Globulin 2.5 (1.7-4.1) g/dL Albumin/Globulin Ratio 1.3 (1.0-2.8) Lipase 20 L (23-300) U/L Urine Color Urine Appearance Urine pH (4.5-8.0) Ur Specific [place] (1.000-1.035) Urine Protein (Negative) Urine Glucose (UA) (Normal) g/dL Urine Ketones (NEGATIVE) Urine Occult Blood (Negative) Urine Nitrate (Negative) Urine Bilirubin (NEGATIVE) Urine Urobilinogen (0.2) E.U./dL Ur Leukocyte Esterase (NEGATIVE) Urine RBC (0-5/HPF) Urine WBC (0-5/HPF) Ur Squamous Epith Cells Urine Bacteria (None) Ur Culture Indicated? Micro UA Comment 03/29/18 Range/Units 13:44 WBC (4.5-11.0) X10^3/uL RBC (4.5-5.9) X10^6/uL Hgb (13.5-17.5) g/dL Hct (41-53) % MCV (80-100) fL MCH (26-34) PG MCHC (30-36) % RDW (11.6-14.8) % Plt Count (150-400) X10^3/uL Neut % (Auto) (50-75) % Lymph % (Auto) (25-40) % [place] % (Auto) (3-14) % Eos % (Auto) (2-4) % Baso % (Auto) (0-2) % Neut # (Auto) (8184-2982) /uL Sodium (137-145) mmol/L Potassium (3.4-5.1) mmol/L Chloride (98-107) mmol/L Carbon Dioxide (22-32) mmol/L BUN (9-20) mg/dL Creatinine (0.66-1.25) mg/dL Estimated GFR (>60) mL/min BUN/Creatinine Ratio (6-22) Glucose (80-110) mg/dL Lactate (0.7-2.1) mmol/L Calcium (8.4-10.2) mg/dL Total Bilirubin (0.2-1.3) mg/dL AST (17-59) IU/L ALT (21-72) IU/L Alkaline Phosphatase (38-126) U/L Total Protein (6.3-8.2) g/dL Albumin (3.5-5.0) g/dL Globulin (1.7-4.1) g/dL Albumin/Globulin Ratio (1.0-2.8) Lipase (23-300) U/L Urine Color Yellow Urine Appearance Cloudy Urine pH 7.5 (4.5-8.0) Ur Specific [place] <=1.005 (1.000-1.035) Urine Protein 1+ H (Negative) Urine Glucose (UA) Negative (Normal) g/dL Urine Ketones Trace H (NEGATIVE) Urine Occult Blood 3+ H (Negative) Urine Nitrate Negative (Negative) Urine Bilirubin Negative (NEGATIVE) Urine Urobilinogen 4.0 H (0.2) E.U./dL Ur Leukocyte Esterase Negative (NEGATIVE) Urine RBC >100/hpf (0-5/HPF) Urine WBC 1-5/hpf (0-5/HPF) Ur Squamous Epith Cells 0-1 /hpf Urine Bacteria Occasional (0-1) (None) Ur Culture Indicated? Cult not indicated Micro UA Comment Not Reportable Point of Care Testing Glucose POC [address] scan - abdomen: Radiologist's impression: [place] [address] CT Scan Report Signed Patient: Nahun Cintron MR#: [id number] : 1940 Acct:[id number] Age/Sex: 78 / M Date of Service: 03/29/18 Loc: ED Accession Number: [id number] Procedure: CT abdomen pelvis w con Ordering Provider: Annamaria Jeter D.O. PROCEDURE: CT ABDOMEN PELVIS W CON INDICATIONS: abdominal pain, increased weakness, hx prostate ca SCC TECHNIQUE: After the administration of intravenous contrast, 5 mm thick sections acquired from the diaphragm to the symphysis. 5 mm coronal and sagittal reformats were acquired. For radiation dose reduction, the following was used: automated exposure control, adjustment of mA and/or kV according to patient size. COMPARISON: [facility], CT, CT CHEST ABD PEL W CON, 12/29/2017, 12:13. FINDINGS: Image quality: Excellent. ABDOMEN: Lung bases: There are partially visualized areas of patchy opacity within the left lower lobe. Solid organs: Liver is normal in size and enhancement. Hepatic steatosis is present. Gallbladder has been removed. Biliary system is non dilated. Pancreas enhances normally. Spleen is normal in size and enhancement. No adrenal nodules. Kidneys demonstrate normal size and enhancement, without hydronephrosis. Bilateral renal cysts are noted. Previous areas of bilateral renal calcification are unchanged. Peritoneum and bowel: Bowel loops demonstrate normal wall thickness and caliber. No free fluid or air. Scattered colonic diverticula are present without associated inflammatory change. Nodes and vessels: No retroperitoneal or mesenteric adenopathy by size criteria. Aorta and inferior vena cava are normal in size. Miscellaneous: No ventral hernias. PELVIS: Genitourinary: Bladder wall thickness is normal. Miscellaneous: Bilateral fat-containing inguinal hernias are present. Bones: Unchanged sclerotic focus consistent with known metastatic disease within the left proximal femur. No vertebral body compression fractures. IMPRESSION: 1. No acute intra-abdominal or pelvic process. 2. Diverticulosis. Dictated by: Gabrielle Rivera M.D. on 03/29/2018 at 13:11 Approved by: Gabrielle Rivera M.D. on 03/29/2018 at 13:23 ECG Data Attestation: I personally reviewed and interpreted this ECG as follows: Interpretation: Sinus rhythm with sinus arrhythmia rate of 68 P are 155 QRS of 102 and QTC of 464. Patient has Q-waves in 3 and AVF patient has some ST depression in V5 V6, patient is a prior EKG from 02/22/2018 that appears similar with ST segments. [facility] Narrative Medical decision making narrative: Patient has had increasing weakness, his bilirubin is elevated but the rest of his lab work shows no acute changes. EKG appears similar to prior. Patient has not had any chest pain or shortness of breath so troponin was not ordered. Patient has not been eating or drinking much, 1L of fluids Zofran was ordered. CT abdomen pelvis shows a sclerotic lesion but no acute intra-abdominal process blood cultures were ordered. Chest x-ray shows left lower lobe infiltrate, this could be pneumonia with a slightly decreased white count and patient does seem to have a little bit of a GI bleed with his drop in hemoglobin and positive stool occult. He is on blood thinners and his INR was elevated. Patient's bilirubin was also elevated although I do not have a clear source for this. His CT shows no clear intra- abdominal process and his last chemotherapy was 2 or 3 months ago. Urine was negative for infection. Blood cultures were ordered. Patient does not appear to be septic so lactate was not ordered and he was not given 30 cc/kilos bolus with his past medical history and age I felt he would likely not tolerate. Spoke with Dr. Helms who accepts. Discharge Plan Departure Patient Disposition: Admitted as Observation Clinical Impression: Acute GI bleeding, Pneumonia Discharge Date/Time: 03/29/18 16:30 Interventions: ED Discharge Assessment Last Done: 03/29/18 16:25 Admit Date/Time: 03/29/18 15:23 Admit Provider: Aisha Helms
[2018-03-29 12:19] LABS: Add Manual Diff / Slide Review NO; Basophils Percent Auto 0.2 % (0-2); Eosinophils Percent Auto 2.8 % (2-4); Hematocrit 32.3 % (41-53); Hemoglobin 11.3 g/dL (13.5-17.5); Lymphocytes Percent Auto 14.2 % (25-40); Mean Corpuscular HGB Conc 35.1 % (30-36); Mean Corpuscular Hemoglobin 33.9 PG (26-34); Mean Corpuscular Volume 96.6 fL (80-100); Monocytes Percent Auto 11.1 % (3-14); Neutrophils Absolute Auto 2800 /uL (1500-7000); Neutrophils Percent Auto 71.7 % (50-75); Platelet Count 82 X10^3/uL (150-400); Red Blood Cell Count 3.35 X10^6/uL (4.5-5.9); Red Cell Distribution Width 14.4 % (11.6-14.8); White Blood Cell Count 3.9 X10^3/uL (4.5-11.0)
[2018-03-29 12:24] LABS: Alanine Aminotransferase 23 IU/L (21-72); Albumin 3.3 g/dL (3.5-5.0); Albumin Globulin Ratio 1.3 (1.0-2.8); Alkaline Phosphatase 65 U/L (38-126); Aspartate Aminotransferase 23 IU/L (17-59); BUN Creatinine Ratio 13.6 (6-22); Bilirubin Total 2.1 mg/dL (0.2-1.3); Blood Urea Nitrogen 15 mg/dL (9-20); Calcium 8.8 mg/dL (8.4-10.2); Carbon Dioxide 32 mmol/L (22-32); Chloride 98 mmol/L (98-107); Estimated Glomerular Filt Rate > 60.0 mL/min (>60); Globulin 2.5 g/dL (1.7-4.1); Glucose 108 mg/dL (80-110); HEMOLYSIS < 15 (0-50); Lipase 20 U/L (23-300); Potassium 3.2 mmol/L (3.4-5.1); Sodium 138 mmol/L (137-145); Total Protein 5.8 g/dL (6.3-8.2)
[2018-03-29 12:25] LABS: Lactate (Lactic Acid) 1.4 mmol/L (0.7-2.1)
[2018-03-29] MEDS: SODIUM CHLORIDE 0.9% 1,000 ML 1000 ML IV (12:35)
[2018-03-29] MEDS: ONDANSETRON 4 MG/2 ML INJ IV (12:36)
--- NOTE | 2018-03-29 13:25 | DI.CT.S_ITS ---
PROCEDURE: CT ABDOMEN PELVIS W CON INDICATIONS: abdominal pain, increased weakness, hx prostate ca SCC TECHNIQUE: After the administration of intravenous contrast, 5 mm thick sections acquired from the diaphragm to the symphysis. 5 mm coronal and sagittal reformats were acquired. For radiation dose reduction, the following was used: automated exposure control, adjustment of mA and/or kV according to patient size. COMPARISON: [facility], CT, CT CHEST ABD PEL W CON, 12/29/2017, 12:13. FINDINGS: Image quality: Excellent. ABDOMEN: Lung bases: There are partially visualized areas of patchy opacity within the left lower lobe. Solid organs: Liver is normal in size and enhancement. Hepatic steatosis is present. Gallbladder has been removed. Biliary system is non dilated. Pancreas enhances normally. Spleen is normal in size and enhancement. No adrenal nodules. Kidneys demonstrate normal size and enhancement, without hydronephrosis. Bilateral renal cysts are noted. Previous areas of bilateral renal calcification are unchanged. Peritoneum and bowel: Bowel loops demonstrate normal wall thickness and caliber. No free fluid or air. Scattered colonic diverticula are present without associated inflammatory change. Nodes and vessels: No retroperitoneal or mesenteric adenopathy by size criteria. Aorta and inferior vena cava are normal in size. Miscellaneous: No ventral hernias. PELVIS: Genitourinary: Bladder wall thickness is normal. Miscellaneous: Bilateral fat-containing inguinal hernias are present. Bones: Unchanged sclerotic focus consistent with known metastatic disease within the left proximal femur. No vertebral body compression fractures. IMPRESSION: 1. No acute intra-abdominal or pelvic process. 2. Diverticulosis. Dictated by: Gabrielle Rivera M.D. on 03/29/2018 at 13:11 Approved by: Gabrielle Rivera M.D. on 03/29/2018 at 13:23
[2018-03-29 14:02] LABS: Appearance Urine UA CLOUDY; Bilirubin Urine UA NEGATIVE (NEGATIVE); Color Urine UA YELLOW; Glucose Urine UA NEGATIVE (Normal); Ketones Urine UA TRACE (NEGATIVE); Leukocyte Esterase Urine UA NEGATIVE (NEGATIVE); Nitrite Urine UA NEGATIVE (Negative); Occult Blood Urine UA 3+ (Negative); Protein Urine UA 1+ (Negative); Specific Gravity Urine UA <=1.005 (1.000-1.035); pH Urine UA 7.5 (4.5-8.0)
[2018-03-29 14:18] LABS: Bacteria Urine Occasional (0-1); Culture Indicated Urine Cult Not Indicated; RBC Urine >100/HPF (0-5/HPF); Squamous Epithelial Cell Urine 0-1 /HPF; WBC Urine 1-5/HPF (0-5/HPF)
--- NOTE | 2018-03-29 14:52 | DI.RAD.S_ITS ---
PROCEDURE: XR CHEST 1V INDICATIONS: low oxygen TECHNIQUE: One view of the chest was acquired. COMPARISON: [facility], CR, XR CHEST 2V, 10/17/2017, 14:08. FINDINGS: Surgical changes and devices: None. Lungs and pleura: No pleural effusions or pneumothorax. Ill-defined airspace opacity in lateral aspect of left lower lung field is seen suggestive of left lower lobe infiltrate. Right lung is clear. Mediastinum: Mediastinal contours appear normal. Heart size is enlarged. Bones and chest wall: No suspicious bony lesions. Overlying soft tissues appear unremarkable. IMPRESSION: Findings suggestive of left lower lobe infiltrate. Dictated by: Dutch Vasquez M.D. on 03/29/2018 at 15:05 Approved by: Dutch Vasquez M.D. on 03/29/2018 at 15:06
[2018-03-29] MEDS: CEFTRIAXONE 1 GM/50 ML FROZ.PIGGY IV (15:32)
--- NOTE | 2018-03-29 17:09 | PC.NURSE ---
ADMISSION Received pt at approximately 1635 via [facility] [place], accompanied by [facility] and . KARUK, wears bilateral hearing aids. Ox4, MERIDA with generalized weakness, able to help reposition in bed from side to side. L positerior hip area with old incision, pt's reports he had a cyst there previously and had stitches removed from the site recently. reports multiple falls, most recent being this week. last radiation was in January and last chemo session was in September. abdomen soft and round, pt incontinent of stool. denies any pain, N/V. breath sounds with some fine crackles, pt denies any dyspnea or SOB, on 2L O2 via [place]. pt and oriented to room. call light within reach.
--- NOTE | 2018-03-29 17:28 | PM.HP.1 ---
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 The patient and his significant other report that he has been experiencing progressive weakness over the last 3 weeks with with the most acute worsening over the last 2 days. He has fallen several times today due to weakness with a small abrasion over left kneecap due to ground level fall. He reports that he has had difficulty eating due to early satiety with approximately 2 tsp of food consumed which has caused his appetite to be decreased overall with very little intake over the last several weeks. He reports low-grade fevers up to 100.4 F without chills. He endorses a headache yesterday which has now resolved. He denies vision changes, rhinitis, sore throat, worsening shortness of breath from baseline (although he was significantly hypoxemic upon arrival to the ED), chest pain, or abdominal pain. He does endorse nausea and which he had 1 episode of emesis yesterday. He also endorses chronic constipation x2 weeks which was relieved recently with milk of magnesia and MiraLax. Several days ago, he had some abdominal pain that was initially left lower quadrant and he was started on Cipro for which he has received 2 days worth. He also reported black stool x1 which was Hemoccult negative. He continues to have chronic dysuria and frequency but no more than usual. He does endorse new urgency with urination. Patient is currently under treatment for metastatic prostate cancer and recently completed chemotherapy for small cell carcinoma. Of note, he is on Xarelto for recent PICC line thrombus of left arm and has history of previous PE. Patient History Medical History 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) Thrombocytopenia (Chronic) Leukopenia (Chronic) Small cell lung cancer (Chronic) Coronary artery disease (Acute) Depression (Acute) Diabetes type 2, controlled (Acute) History of nephrolithotomy with removal of calculi (Acute) History of pulmonary embolism (Acute) Hyperlipidemia (Acute) Hypertension (Acute) Rheumatoid arthritis (Acute) Thrombophlebitis of arm, left (Acute) Kidney stone (Chronic) UTI (urinary tract infection) (Inactive) Surgical History H/O coronary angioplasty (Acute) History of appendectomy (Acute) History of cholecystectomy (Acute) Family & Social History Social History: household members significant other Prior Living Arrangements Apartment/Condo The patient is previously and has been with a significant other x 11 years. He has 1 daughter and 1 son who are both healthy. Safety & Behavioral: Feels Safe in Current Yes Environment Been Physically Hurt or No Threatened By a Person Suicidal Ideation Description None Suicide Plan Description No Plan Tobacco & Substance use: Tobacco type cigarettes, 60 pack year history Smoking Status Former smoker alcohol intake never Substance Use Type does not use Meds Home Medications Medication Instructions Recorded Confirmed Type atorvastatin [Lipitor] 40 mg PO BEDTIME #0 03/21/17 03/29/18 History ascorbic acid (vitamin C) 1,500 mg PO QDAY #0 06/01/17 03/29/18 History calcium carbonate 1,200 mg PO Q DAY #0 06/01/17 03/29/18 History cholecalciferol (vitamin D3) 2,000 iu PO QDAY #0 06/01/17 03/29/18 History [Vitamin D3] magnesium 200 mg PO Q DAY #0 06/01/17 03/29/18 History multivitamin [Multiple Vitamins] 1 tab PO QDAY #0 06/01/17 03/29/18 History potassium chloride [K-Tab] 20 meq PO DAILY #30 tab 09/05/17 03/29/18 Rx methotrexate sodium 10 mg PO QWEEK 09/12/17 03/29/18 History nitroglycerin [Nitrostat] 0.4 mg SUBLINGUAL [id number] PRN #30 10/01/17 03/29/18 Rx tab metformin 500 mg PO BID 01/02/18 03/29/18 History rivaroxaban [Xarelto] 20 mg PO DAILY #90 tab 02/07/18 03/29/18 Rx abiraterone [Zytiga] 1,000 mg PO DAILY 02/22/18 03/29/18 History carvedilol 6.25 mg PO BID 02/22/18 03/29/18 History citalopram 10 mg PO DAILY 02/22/18 03/29/18 History doxazosin 8 mg PO QPM 02/22/18 03/29/18 History folic acid 0.8 mg PO DAILY 02/22/18 03/29/18 History prednisone 5 mg PO BID 02/22/18 03/29/18 History mupirocin calcium [Bactroban] 1 applic TOPICAL BEDTIME 03/29/18 03/29/18 History timolol 1 dose EYE-LEFT BID 03/29/18 03/29/18 History Allergies Allergy/AdvReac Type Severity Reaction Status Date / Time chlorthalidone Allergy Verified 03/29/18 11:41 hydroxychloroquine Allergy Verified 03/29/18 11:41 [From Plaquenil] niacin [NIACIN] AdvReac Severe Hypotension Verified 03/29/18 11:40 amlodipine [AMLODIPINE] AdvReac Unknown Verified 03/29/18 11:40 gemfibrozil [GEMFIBROZIL] AdvReac Unknown Verified 03/29/18 11:40 hydrochlorothiazide AdvReac Unknown Verified 03/29/18 11:40 [HYDROCHLOROTHIAZIDE] lisinopril [LISINOPRIL] AdvReac Unknown Verified 03/29/18 11:40 Review of Systems Review of Systems A 10 system comprehensive review of systems was conducted with the patient and found to be negative except as above in the History of Present Illness. Exam Vital Signs (past 8 hours): - 03/29/18 11:28 03/29/18 13:56 03/29/18 15:48 Temperature 99.1 F Pulse Rate 68 74 77 Respiratory Rate 20 18 21 Blood Pressure 119/71 Blood Pressure [Right Arm] 169/84 H 149/80 H Pulse Oximetry 93 95 95 03/29/18 16:25 03/29/18 16:35 Temperature 98.8 F Pulse Rate 81 76 Respiratory Rate 20 20 Blood Pressure 131/72 146/91 H Blood Pressure [Right Arm] Pulse Oximetry 98 91 Oxygen Delivery Method Nasal Cannula Oxygen Flow Rate 2 Narrative Exam Narrative: General: Elderly gentleman sitting in bed and in no acute distress, appears chronically ill, appropriately interactive HEENT: Normocephalic, atraumatic. External ears without defect. Pupils equal, round, and reactive to light. Anicteric sclerae, moist conjunctivae, and no lid lag. Oropharynx free of erythema and cobble stoning with moist mucosa. Neck: Supple with full range of motion. No jugular venous distension. No bruits. No lymphadenopathy or thyromegaly. Cardiovascular: Regular rate and rhythm without murmurs, rubs, or gallops appreciated. Pulmonary: Clear to auscultation bilaterally although lung sounds diminished at left base without crackles, wheezes, or rhonchi. Normal respiratory effort with no use of accessory muscles. Abdomen: Bowel tones present. Soft, non-tender, non-distended. No hepatosplenomegaly or masses appreciated. Extremities: No clubbing, cyanosis, or edema. Abrasion to left kneecap from several ground level falls. Skin: Normal temperature, turgor, and texture; no rash, ulcers, or subcutaneous nodules appreciated. Neurological: Cranial nerves grossly intact. Several falls due to progressive weakness over the last several weeks. Psychiatric: Normal mood and affect. Alert and oriented to person, place, and time. Objective Labs Result Diagrams: 03/30/18 05:35 03/30/18 05:35 Labs: Laboratory Results - last 24 hr 03/29/18 03/29/18 03/29/18 11:51 11:51 11:51 WBC 3.9 L RBC 3.35 L Hgb 11.3 L Hct 32.3 L MCV 96.6 MCH 33.9 MCHC 35.1 RDW 14.4 Plt Count 82 L Neut % (Auto) 71.7 Lymph % (Auto) 14.2 L [place] % (Auto) 11.1 Eos % (Auto) 2.8 Baso % (Auto) 0.2 Neut # (Auto) 2800 Sodium 138 Potassium 3.2 L Chloride 98 Carbon Dioxide 32 BUN 15 Creatinine 1.10 Estimated GFR > 60.0 BUN/Creatinine Ratio 13.6 Glucose 108 Lactate 1.4 Calcium 8.8 Total Bilirubin 2.1 H AST 23 ALT 23 Alkaline Phosphatase 65 Total Protein 5.8 L Albumin 3.3 L Globulin 2.5 Albumin/Globulin Ratio 1.3 Lipase 20 L Urine Color Urine Appearance Urine pH Ur Specific [place] Urine Protein Urine Glucose (UA) Urine Ketones Urine Occult Blood Urine Nitrate Urine Bilirubin Urine Urobilinogen Ur Leukocyte Esterase Urine RBC Urine WBC Ur Squamous Epith Cells Urine Bacteria Ur Culture Indicated? Micro UA Comment 03/29/18 13:44 WBC RBC Hgb Hct MCV MCH MCHC RDW Plt Count Neut % (Auto) Lymph % (Auto) [place] % (Auto) Eos % (Auto) Baso % (Auto) Neut # (Auto) Sodium Potassium Chloride Carbon Dioxide BUN Creatinine Estimated GFR BUN/Creatinine Ratio Glucose Lactate Calcium Total Bilirubin AST ALT Alkaline Phosphatase Total Protein Albumin Globulin Albumin/Globulin Ratio Lipase Urine Color Yellow Urine Appearance Cloudy Urine pH 7.5 Ur Specific [place] <=1.005 Urine Protein 1+ H Urine Glucose (UA) Negative Urine Ketones Trace H Urine Occult Blood 3+ H Urine Nitrate Negative Urine Bilirubin Negative Urine Urobilinogen 4.0 H Ur Leukocyte Esterase Negative Urine RBC >100/hpf Urine WBC 1-5/hpf Ur Squamous Epith Cells 0-1 /hpf Urine Bacteria Occasional (0-1) Ur Culture Indicated? 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 1. Acute left lower lobe pneumonia secondary to possible post-obstructive process from small cell carcinoma, present on admission. Active. -Status post left lung radiation and prophylactic brain radiation, as well as, 4 rounds of chemotherapy with carboplatin and etoposide. -Patient presented with significant generalized progressive weakness with low-grade fever and nasal congestion but without cough or sputum production. Leukopenic and hypoxemic with oxygen saturations in the low 80s on admission. -Chest x-ray demonstrated left lower lobe consolidation. Plan to l discuss patient with his oncologist and possible further imaging. -Ordered complete pneumonia workup including: Respiratory viral PCR, strep pneumoniae and Legionella urine antigens, sputum culture and blood culture x2. -Continue ceftriaxone 2 g daily and azithromycin 500 mg daily. 2. Acute on chronic generalized weakness, present on admission. Active. -Likely secondary to left lower lobe pneumonia. -Urinalysis was performed and grossly normal ruling out UTI. 3. 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 Presumed stable. -Continue Zytiga 1 g daily and prednisone 5 mg twice daily. 4. Pancytopenia, chronic, present on admission. Stable. -Likely multifactorial and related to her metastatic prostate cancer and small-cell cancer of the lung, as well as, multiple chemotherapies. 5. Diabetes mellitus type 2, non-insulin using, present on admission. Presume stable. -Held metformin. -Ordered low-dose correctional scale insulin and ACHS blood glucose checks 6. Hyperlipidemia, present on admission. Stable. -Continue Atorvastatin 40 mg at bedtime. 7. Hypertension, present on admission. Stable. -Continue Carvedilol 6.25 mg twice daily. 8. Depression, present on admission. Stable. -Continue citalopram 10 mg daily. 9. BPH, present on admission. Presume stable. -Continue doxazosin 8 mg at bedtime. 10. Rheumatoid arthritis, present on admission. Stable. -Continue methotrexate 10 mg weekly on Monday and folic acid 0.8 mg daily. 11. Recent left arm thrombophlebitis status post PICC line removal and history of PE, present on admission. Presume stable. -Continue Xarelto 20 mg daily. 12. Glaucoma, chronic, present on admission. Stable. -Continue Timolol 1 dose left eye twice daily. Patient is admitted under inpatient status with expected length of stay greater than 2 midnights due to severity of presenting symptoms, risk of adverse event, and complexity of treatment plan. Quality VTE Deep Vein Thrombosis/Pulmonary Embolism Present on Admission: No
[2018-03-29] MEDS: predniSONE 5 MG TABLET PO (20:36)
[2018-03-29] MEDS: AZITHROMYCIN 250 MG TABLET 500 MG PO (20:36)
[2018-03-29] MEDS: CARVEDILOL 6.25 MG TABLET PO (20:36)
[2018-03-29] MEDS: ATORVASTATIN 20 MG TABLET 40 MG PO (20:37)
[2018-03-29 22:29] LABS: Adenovirus Not Detected (Not Detect); Bordetella pertussis Not Detected (Not Detect); Chlamydophila pneumoniae Not Detected (Not Detect); Coronavirus 229E Not Detected (Not Detect); Coronavirus HKU1 Not Detected (Not Detect); Coronavirus NL 63 Not Detected (Not Detect); Coronavirus OC43 Not Detected (Not Detect); Human Metapneumovirus Not Detected (Not Detect); Human Rhinovirus/Enterovirus Not Detected (Not Detect); Influenza A Not Detected (Not Detect); Influenza B Not Detected (Not Detect); Mycoplasma pneumoniae Not Detected (Not Detect); Parainfluenza Virus 1 Not Detected (Not Detect); Parainfluenza Virus 2 Not Detected (Not Detect); Parainfluenza Virus 3 Not Detected (Not Detect); Parainfluenza Virus 4 Not Detected (Not Detect); Respiratory Syncytial Virus Not Detected (Not Detect)
[2018-03-30] VITALS (12 sets, daily range): BP systolic 114–158; BP diastolic 66–87; PULSE 62–82; RESP 16–24; TEMP 36.4–37.6; O2SAT 89–95
--- NOTE | 2018-03-30 | DI.CT.S_ITS ---
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 7 mm thick coronal and sagittal MIP reformats were acquired. For radiation dose reduction, the following was used: automated exposure control, adjustment of mA and/or kV according to patient size. COMPARISON: [facility], CR, XR CHEST 1V, 03/29/2018, 15:15. [facility], CT, CT CHEST ABD PEL W CON, 12/29/2017, 12:13. [facility], CT, CT ABDOMEN PELVIS W CON, 03/29/2018, 12:45. FINDINGS: Image quality: Excellent. Lungs and pleura: Left basilar subpleural consolidation and ill-defined opacities are grossly unchanged since 03/29/18. No definite progression. No new focal consolidation. There is scattered mildly enlarged. There are coronary calcifications bibasilar atelectasis and scarring No pleural effusions or pneumothorax. Central and peripheral airways are patent and normal in caliber. Mediastinum: Heart size is normal. Trace pericardial effusion. No mediastinal or hilar adenopathy by size criteria. Thoracic aorta and central pulmonary arteries are normal in size. Esophagus is normal in caliber. Trace hiatal hernia. Bones and chest wall: No suspicious bony lesions. No vertebral body compression fractures. No axillary or supraclavicular adenopathy by size criteria. Thyroid gland negative. Abdomen: Visualized upper abdominal solid organs appear normal. Upper abdominal bowel loops are normal in caliber. IMPRESSION: Grossly stable examination since 03/29/18 with no definite progression or improvement in the left subpleural consolidative ill-defined opacity, which is indeterminate, presumably infectious or inflammatory however recommend continued followup to document resolution after treatment to exclude the presence of underlying pulmonary nodule or abnormal soft tissue. This can likely be done radiographically. Dictated by: Israel Hicks M.D. on 03/30/2018 at 15:56 Approved by: Israel Hicks M.D. on 03/30/2018 at 16:02
--- NOTE | 2018-03-30 | DI.RAD.S_ITS ---
PROCEDURE: FL BARIUM SWALLOW W SPEECH INDICATIONS: Suspicion for silent aspiration. History of pneumonia. TECHNIQUE: Examination was conducted in conjunction with speech pathology per standard protocol. In the lateral projection, filming was performed of the patient swallowing. AP projection filming may also be performed with patient swallowing. COMPARISON: None. FINDINGS: Function: The oral preparatory phase appears normal, with proper containment. The subsequent oral propulsive phase, pharyngeal phase, and esophageal phase of swallowing also appear normal with all proffered substances. No laryngeal penetration or tracheal aspiration. No pathologic vallecular pooling. Morphology: No cricopharyngeal bar is identified. No strictures. IMPRESSION: No laryngeal penetration or tracheal aspiration identified while swallowing. Dictated by: Juan Gómez M.D. on 03/30/2018 at 13:32 Approved by: Juan Gómez M.D. on 03/30/2018 at 13:34
[2018-03-30 06:13] LABS: Add Manual Diff / Slide Review NO; Basophils Percent Auto 0.2 % (0-2); Eosinophils Percent Auto 0.6 % (2-4); Hematocrit 30.3 % (41-53); Hemoglobin 10.6 g/dL (13.5-17.5); Lymphocytes Percent Auto 13.1 % (25-40); Mean Corpuscular HGB Conc 34.8 % (30-36); Mean Corpuscular Hemoglobin 33.7 PG (26-34); Mean Corpuscular Volume 96.7 fL (80-100); Neutrophils Absolute Auto 2800 /uL (1500-7000); Neutrophils Percent Auto 76.1 % (50-75); Platelet Count 74 X10^3/uL (150-400); Red Blood Cell Count 3.14 X10^6/uL (4.5-5.9); Red Cell Distribution Width 14.2 % (11.6-14.8); White Blood Cell Count 3.7 X10^3/uL (4.5-11.0)
[2018-03-30 06:18] LABS: Alanine Aminotransferase 23 IU/L (21-72); Albumin 2.9 g/dL (3.5-5.0); Albumin Globulin Ratio 1.2 (1.0-2.8); Alkaline Phosphatase 60 U/L (38-126); Aspartate Aminotransferase 21 IU/L (17-59); Bilirubin Total 1.2 mg/dL (0.2-1.3); Blood Urea Nitrogen 14 mg/dL (9-20); Calcium 8.6 mg/dL (8.4-10.2); Carbon Dioxide 28 mmol/L (22-32); Chloride 104 mmol/L (98-107); Estimated Glomerular Filt Rate > 60.0 mL/min (>60); Globulin 2.5 g/dL (1.7-4.1); Glucose 118 mg/dL (80-110); HEMOLYSIS < 15 (0-50); Potassium 3.3 mmol/L (3.4-5.1); Sodium 138 mmol/L (137-145); Total Protein 5.4 g/dL (6.3-8.2)
[2018-03-30] MEDS: CITALOPRAM 10 MG TABLET PO (08:21)
[2018-03-30] MEDS: CARVEDILOL 6.25 MG TABLET PO ×2 (08:21→20:17)
[2018-03-30] MEDS: FOLIC ACID 0.4 MG TABLET 0.8 MG PO (08:21)
[2018-03-30] MEDS: RIVAROXABAN 10 MG TABLET 20 MG PO (08:21)
[2018-03-30] MEDS: predniSONE 5 MG TABLET PO ×2 (08:21→20:18)
[2018-03-30] MEDS: POTASSIUM CHLORIDE 20 MEQ TAB PO (08:22)
[2018-03-30] MEDS: TIMOLOL 0.5% OPHTH 1 DROPS EYE-LEFT ×2 (08:22→20:19)
[2018-03-30] MEDS: SODIUM CHLORIDE 0.9% FLUSH 10 ML IV ×3 (08:23→20:21)
[2018-03-30] MEDS: Abiraterone [Zytiga] 1,000 MG 1000 EACH PO (10:27)
--- NOTE | 2018-03-30 10:53 | ST.IPCSEOM ---
Care Team Visit Care Team Role Provider Type Gurdeep Cameron MD Primary Care Provider Physician Specialty: Internal Medicine Address: [address] [place] [address], [facility] Email: Annamaria Jeter DO Emergency Provider Physician Specialty: Emergency Medicine Address: [address] [place] [address], [facility] Email: Aisha Helms MD Admit Provider Physician Attending Provider Specialty: Internal Medicine Address: [address] [place] [address], [facility] Email: [email or web address] Past Medical History (Last Updated 03/29/18 @ 19:33 by Christel Altamirano DO) Metastatic malignant neoplasm to prostate (Chronic Medical) He has metastatic prostate cancer with a high Eldon score. His PSA continues to decline. It is down to 0.08. He will be due for Lupron injection in April. He will continue with his Zytiga and prednisone. Prostate cancer metastatic to bone (Chronic Medical) Thrombocytopenia (Chronic Medical) Leukopenia (Chronic Medical) Small cell lung cancer (Chronic Medical) He has a history of limited stage small cell lung cancer. He currently has no symptoms to suggest progression of his disease. He will return to clinic in 2 months for follow-up. He will be due for CT scan at that time. Coronary artery disease (Acute Medical) Depression (Acute Medical) Diabetes type 2, controlled (Acute Medical) History of nephrolithotomy with removal of calculi (Acute Medical) History of pulmonary embolism (Acute Medical) Hyperlipidemia (Acute Medical) Hypertension (Acute Medical) Rheumatoid arthritis (Acute Medical) Thrombophlebitis of arm, left (Acute Medical) Kidney stone (Chronic Medical) UTI (urinary tract infection) (Inactive Medical) Speech-Language Pathology Swallow Evaluation [employer] Clinical Swallow Evaluation Start: 03/30/18 10:42 Freq: Status: Active Protocol: Document 03/30/18 10:42 [facility] (Rec: 03/30/18 10:53 [facility] [id number]) Clinical Swallow Evaluation Session Time Visit Start Time 10:20 Visit Stop Time 10:40 Total Visit Minutes [address] Altamirano Reason for Referral Difficulty eating Setting Assessment Location Acute Care Visit Type Note Type Initial Evaluation Next Note Type Next Note Type Treatment Note Patient Information Identification Type Name ID Wristband History Patient is a 78 year old male who was admitted to [facility] on 03/29/18 with weakness, nausea, stomach pain . 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 Four rounds of chemotherapy wtih carboplatin and etoposide, rheymatoid arthritis on methotrexate, and depression. His was present with him when he was admitted to [facility]. She reported that he has been experiencing progressive weakness over the last 3 weeks, with most acute worsening over the last 2 days . He has fallen several times due to weakness and also reported difficulty eating due to early satiety. His suspects that effects of chemotherapy have reduced his diet. He stated that food tasts like cardboard. They both reported that he experiences significant stomach pain and pressure after eating, which makes him stop eating/reduces his incentive to eat. His full medical history is quite extensive. Please see medical chart (H&P Written on 03/29) for full details. Chest x-ray taken on 03/29 revealed findings suggestive of left lower lobe infiltrate. A clinical swallow evaluation was requested to determine the safety of the patient's swallowing ability due to pneumonia as well as the functionality of his swallowing due to reduced appetite. Subjective Observations Patient was awake in bed with present. RN, Yolanda, present to administer medication. This medication required fasting before and after administration. As a result, a complete clinical swallow evaluation could not be accomplished this visit. Evaluation Liquids Trialed Thin Oral Phase Comments Able to drink from straw without difficulty. No overt oral dyspahgia observed at this time. Pharyngeal Phase Comments No overt s/s of aspiration observed with taking oral meds (2 at a time) with large consecutive straw sips of thin liquid. No cough/throat clear /change in respiratory status observed. No change in vocal quality. Independent in trials . Findings Dysphagia Type No dysphagia Rehabilitation Potential Good Impressions At the time of this visit, patient only able to take oral medication with straw sips of thin liquids. He was required to fast before and after taking the medication for at least an hour. However, [employer] observed functional tolerance of thin liquid and whole medication. No s/s of aspriation or dysphagia. He reported that he does not have difficulty eating or swallowing and does not suspect that he has pneumonia secondary to swallowing abnormalities. He did agree to continue the evaluation with [employer] later in the day to demonstrate ability to tolerate regular textures. [employer] will follow up with meal for additional assessment. No diet change warranted at this time. Follow up at next meal, if able. Diet Recommendations Liquids Order Thin Medication Recommendations As Tolerated Aspiration Precautions Recommended Precautions Upright at 90 Degrees Alternate Liquids/Solids Frequent Rest Periods Treatment Plan Placement Recommendations after Home Discharge Appropriate for Therapy Reassess at next meal to determine tolerance of food Therapy Recommendations Follow up next meal to assess patient's ability to tolerate regular textures. Complete care plan following this assessment. Dysphagia Goals Complete clinical swallow evaluation in order to finalize care plan. [employer] Follow Up Next meal.
--- NOTE | 2018-03-30 11:23 | CM.DANOTE ---
Addendum entered by Akua Grubbs LPN 03/30/18 12:15: Introduced self and role. Pt is a 78 year old male who admitted to care of hospitalist team yesterday afternoon. He is currently being treated for pneumonia in the setting of multiple comorbidities including metastatic cancer and rheumatoid arthritis/on methatrexate. He has been declining in strength and functional mobility in last few weeks, per Dr. Helms. Payer: Medicare and [employer] PCP: Dr. Gurdeep Cameron Oncologist: Dr. Ortiz INPT admission status/confirmed by UR HERBER Singh. mixed crop and livestock farm worker Eugenie Pulliam has seen pt at the [facility]. She is alerted today to his admission here so she can follow prn as per her usual process. Discussed in Team Rounds with Dr. Altamirano. She requests order be placed today for PT/OT evals (done) and says she will be conferring today with Dr. Ortiz. P: follow as POC unfolds for d/c issues and options. Original Note: Discharge Planning/Care Management Case received and met with pt and his partner Vanessa. CM Discharge Assessment Start: 03/30/18 11:11 Freq: Status: Active Protocol: Document 03/30/18 11:15 ITV (Rec: 03/30/18 11:22 ITV [id number]) Discharge Planning Assessment History Provided By Patient Significant Other Medical Record Comment last here in September/2017 Prior Living Arrangements Apartment/Condo Household Members significant other Comment lives with Vanessa Alonso, his self identified of 11 years Independent with ADL's Yes Is patient alert and oriented? Yes: very [place] Comment has 4ww from [employer] Comment Pt sees social work administrator Eugenie Pulliam at the [facility]. She is alerted that pt is here via voice mail Additional Comment d/c plan unclear at this point . Full dx and treatment plan are newly in process. OT and PT are ordered Whiteboard Updated in Patient Room with Yes name and ext. # of General Foundry Worker Review Status In Process Next Review Type Continued Stay Review
--- NOTE | 2018-03-30 13:01 | OT.IP.TRT ---
Occupational Therapy Treatment Note M3 OT- IP Subjective and Pain Start: 03/30/18 13:00 Freq: Status: Active Protocol: Document 03/30/18 13:00 [facility] (Rec: 03/30/18 13:01 [facility] [id number]) OT- Subjective Occupational Therapy Visit Type Type Patient Unavailable Notes Pt going donw to get MBS done and not available for OT eval at this time. To check on pt tomorrow.
--- NOTE | 2018-03-30 14:31 | ST.SWALLOW ---
Care Team Visit Care Team Role Provider Type Gurdeep Cameron MD Primary Care Provider Physician Specialty: Internal Medicine Address: [address] [place] [address] Email: Annamaria Jeter DO Emergency Provider Physician Specialty: Emergency Medicine Address: [address] [place] [address] Email: Aisha Helms MD Admit Provider Physician Attending Provider Specialty: Internal Medicine Address: [address] [place] [address] Email: [email or web address] Modified Barium Swallow Study INSTRUMENT TECHNOLOGIST Modified Barium Swallow Study Start: 03/30/18 14:15 Freq: Status: Active Protocol: Document 03/30/18 14:15 MRM (Rec: 03/30/18 14:31 MRM [id number]) Modified Barium Swallow Study Total Time Visit Start Time 12:45 Visit Stop Time 13:30 Total Visit Minutes [address] Altamirano Reason for Referral Suspicion for silent aspiration Setting Setting Acute Care Patient Information Identification Type Name ID Wristband Other Patient History Patient is a 78 year old male who was admitted to [facility] on 03/29/18 with weakness, nausea, stomach pain . 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 Four rounds of chemotherapy wtih carboplatin and etoposide, rheymatoid arthritis on methotrexate, and depression. His was present with him when he was admitted to [facility]. She reported that he has been experiencing progressive weakness over the last 3 weeks, with most acute worsening over the last 2 days . He has fallen several times due to weakness and also reported difficulty eating due to early satiety. His suspects that effects of chemotherapy have reduced his diet. He stated that food tasts like cardboard. They both reported that he experiences significant stomach pain and pressure after eating, which makes him stop eating/reduces his incentive to eat. His full medical history is quite extensive. Please see medical chart (H&P Written on 03/29) for full details. Chest x-ray taken on 03/29 revealed findings suggestive of left lower lobe infiltrate. A clinical swallow evaluation was requested to determine the safety of the patient's swallowing ability due to pneumonia as well as the functionality of his swallowing due to reduced appetite. Subjective Observations Patient arrived down in radiology suite via chair with present in room, per preference. Hard of hearing, but agreed to participate with INSTRUMENT TECHNOLOGIST. Able to independently self-feed throughout the study . Patient Positioning Position View Lateral Imaging Lateral View Textures Administered Trials Presented Thin Liquid via Cup Dysphagia Blenderized Textures Dysphagia Mechanical Textures Regular Textures Oral Phase Source: MBSIMP (TM) (C) Bolus Specific Scoring Grid Lip Closure No Impairment (WNL) Tongue Control During Bolus Hold WFL Bolus Prep/Mastication No Impairment (WNL) Bolus Transport/Lingual Motion WFL A/P Lingual Propulsion Delay No Oral Residue WFL Residue Clearing WFL Additional Oral Phase Observations No oral dysphagia Pharyngeal Phase Source: MBSIMP (TM) (C) Bolus Specific Scoring Grid Delayed Initiation of Pharyngeal Swallow Yes: Mildly delayed Number of Seconds Delayed (seconds) .5 Soft Palate Elevation Minimal Impairment Tongue Base Strength/Range of Motion WFL Residue Along the Tongue Base Yes: Mild, able to clear Clearance of Residue Along Tongue Base Minimal Impairment Laryngeal Elevation WFL Anterior Hyoid Movement WFL Epiglottic Range of Motion WFL Vallecular Residue Yes: Mild, able to clear Clearance of Vallecular Residue Minimal Impairment Laryngeal Vestibular Closure WFL Pharyngeal Stripping Wave WFL Pharyngeal Contraction WFL Posterior Pharyngeal Wall Residue Yes: Trace amount only seen with consecutive sips Clearance of Posterior Pharyngeal Wall Minimal Impairment Residue Upper Esophageal Sphincter Opening WFL Residue in the Pyriform Sinuses Yes: Only observed with consecutive sips of thin Clearance of Residue in the Pyriform WFL Sinuses Esophageal Clearance Upright Position WFL Pharyngoesophageal Backflow Observed No Additional Pharyngeal Phase Observations Functional pharyngeal phase. No penetration or aspiration observed. Mild-moderate residue observed in valleculae and in pyriform sinuses after consecutive sips of thin liquid (5 cup sips). However, with spontaneous dry swallow, able to clear. Swallow initiation timely and sufficient. A/P View Esophageal Observations Esophageal Function No significant esophgeal findings to report. Please see radiologist's report for further details. Clinical Impressions Dysphagia Type No dysphagia Findings Patient presents with no dysphagia. He tolerated single and consecutive cup sips of thin liquids, applesauce, fruit and a juju cracker without difficulty. Observed mild-moderate pharyngeal residue with consecutive cup sips, but able to clear with spontaneous dry swallow. Epiglottic inversion prompt and timely. No penetration or aspiration observed. No esophageal backflow observed. Do not suspect aspiration, silent or not, is occurring. No diet change recommended at this time. No further speech therapy services warranted. Spoke with Dr Altamirano regarding the results of the study. Recommended different study to determine the cause of the patient's discomfort after eating. She agreed. At this time, no further speech therapy services are warranted at this time. D/C patient. Please reconsult if needed. Rehabilitation Potential Excellent Patient Appropriate for Therapy No: No therapy needed Recommendations Diet Liquids Order Thin Diet Order Regular Medication Recommendation As Tolerated Aspiration Precautions Recommended Precautions Upright at 90 Degrees Frequent Rest Periods Small Bites/Sips Treatment Plan Additional Recommendations/Comments GI study, as discussed with Dr Altamirano
--- NOTE | 2018-03-30 14:34 | PT.IIE ---
Surgical History (Last Updated 03/29/18 @ 19:33 by Christel Altamirano DO) H/O coronary angioplasty (Acute) History of appendectomy (Acute) History of cholecystectomy (Acute) Medical History (Last Updated 03/29/18 @ 19:33 by Christel Altamirano DO) 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) Thrombocytopenia (Chronic) Leukopenia (Chronic) Small cell lung cancer (Chronic) Coronary artery disease (Acute) Depression (Acute) Diabetes type 2, controlled (Acute) History of nephrolithotomy with removal of calculi (Acute) History of pulmonary embolism (Acute) Hyperlipidemia (Acute) Hypertension (Acute) Rheumatoid arthritis (Acute) Thrombophlebitis of arm, left (Acute) Kidney stone (Chronic) UTI (urinary tract infection) (Inactive) Physical Therapy Inpatient Evaluation/Re-Eval M1 PT/OT-IP Prior Functional Status Start: 03/30/18 16:51 Freq: NEEDED Status: Active Protocol: Document 03/30/18 14:34 AB (Rec: 03/30/18 17:09 AB [id number]) Medical Review Prior Functional Status Medical History Reviewed Yes Communication able to make needs known Mobility and Gait stated that he is independent with all mobilities and ambulation without AD indoors but uses a walking stick for outdoor ambulation. spouse stated that pt walks ~ 1 mile daily. Social History Household Members significant other Living Arrangements Apartment/Condo Number of Floors (Floors) One Floor Number of Stairs To Enter/Railing? lives on 2nd floor apartment with 16 steps to enter with bilateral rails Home Environment Standard Height Toilet Tub/Shower Home Equipment Grab Bars In Shower Employment Status Retired Additional Social History Comment has a walking stick M2 PT-IP Current Condition Start: 03/30/18 16:51 Freq: NEEDED Status: Active Protocol: Document 03/30/18 14:34 AB (Rec: 03/30/18 17:09 AB [id number]) Physical Therapy Current Condition Current Condition Evaluation Date 03/30/18 Treatment Diagnosis GI bleed; PNA; generalized weakness Onset Date 03/29/18 Precautions Other Precautions O2 sat M3 PT-IP Subjective Start: 03/30/18 16:51 Freq: NEEDED Status: Active Protocol: Document 03/30/18 14:34 AB (Rec: 03/30/18 17:09 [id number]) Subjective Physical Therapy Visit Type Type Initial Evaluation Visit Start Time 14:34 Visit Stop Time 14:58 Total Visit Minutes 24 Number of DINKEY ENGINE FIRER Visits 0 Physical Therapy Visit Comments Patient Comments pt agreeable to do PT Therapy Pain Assessment Pain Present Pain Present Denied Pain M4 PT-IP Mobility and Gait Start: 03/30/18 16:51 Freq: NEEDED Status: Active Protocol: Document 03/30/18 14:34 AB (Rec: 03/30/18 17:09 AB [id number]) PT-Bed Mobility Assessment Supine to Sit Supine to Sit Standby Assistance Head of Bed Elevated PT-Transfer Assessment Sit to and From Stand Sit to and from Stand Moderate Assistance 1 Person Assistance Use of Upper Extremities Equipment Transfer Assistive Device Gait Belt Front Wheeled Walker Orthotic/Prosthetic Devices or Brace: No Gait Assessment Gait Gait Assistance Required: Moderate Assistance 1 Person Assist Distance (Feet) 25 Able to Maintain Weight Bearing Status Yes During Gait Assistive Devices Assistive Device Gait Belt Front Wheeled Walker Orthotic/Prosthetic Devices or Brace: No Gait Deviations General Gait Pattern Decreased Stride Length Decreased Feet Clearance Factors Limiting Gait Function Factors Limiting Gait Function Decreased Activity Tolerance Decreased Strength Poor Balance Poor Safety Awareness Respiratory Distress Comments Gait Comments O2 sat monitored with 2L/min O2: 90-94% with activity; pt can be impulsive and decrease safety awareness needing more cues for safety towards end of ambulation as pt tends to speed up to sit down due to c/ o feeling tired. PT-Balance Assessment Sitting Balance and Reactions Static Sitting Balance Ability Good Dynamic Sitting Balance Ability Fair Standing Balance and Reactions Static Standing Balance Ability Fair Dynamic Standing Balance Ability Poor Device Used FWW M5 PT-IP Objective Assessments Start: 03/30/18 16:51 Freq: NEEDED Status: Active Protocol: Document 03/30/18 14:34 AB (Rec: 03/30/18 17:09 AB [id number]) Orientation Orientation/Cognition Level of Alertness Alert Orientation Name Place Situation Safety Awareness Decreased Safety Awareness Gross Range of Motion Lower Extremity ROM Assessment Within Functional Limits Strength Lower Extremity Strength Assessment Bilaterally Impaired Hip 4-/5 Knee 3+/5 Sensation Assessment Sensation Gross Sensation Right LE Impaired Left LE Impaired Light Touch Impaired Proprioception (Position) Impaired Sensation Description Numbness Comments Sensation Comments stated that he only has ~ 10% sensation on BLE compared to UE sensation Muscle Tone Muscle Tone WNL Yes M6 PT-IP Treatment Start: 12/21/18 16:51 Freq: NEEDED Status: Active Protocol: Document 03/30/18 14:34 AB (Rec: 03/30/18 17:09 AB [id number]) Physical Therapy Treatment Education Education Provided Safety M7 PT-IP Assessment and Plan Start: 03/30/18 16:51 Freq: NEEDED Status: Active Protocol: Document 03/30/18 14:34 AB (Rec: 03/30/18 17:09 AB [id number]) PT Summary Assessment and Plan Potential Rehabilitation Potential Fair Status of Condition at Evaluation Evolving Summary Impairments Pain ROM Strength Balance Coordination Sensation Tone Cognition Bed Mobility Transfers Gait Activity Tolerance Assessment Summary pt requiring mod A with transfers and ambulation at this time and presents with decrease activity tolerance. pt has 16 steps to get into his house and at this time is not appropriate to do stair climbing due to his decrease level of function and decrease endurance. d/c plan depending on progress but at this time may require SNF rehab. Goals Bed Mobility Goal Independent Transfer Goal Standby Assistance Front Wheeled Walker Gait Goal Standby Assistance Front Wheel Walker Gait Distance 150 Other Goals up/down 16 steps with bilateral rails CGA Days to Meet Goals 5 Frequency of Treatment Frequency Of Treatment Once a Day Treatment Plan Physical Therapy Treatment Plan Bed Mobility Training Transfer Training Gait Training Therapeutic Exercise Balance Retraining Discharge Planning Hot or Cold Pack Neuromuscular Re-ed Coordination Retraining Manual Therapy Other Recommendations and Next Treatment currently once a day for PT tx Focus due to pt's decrease activity tolerance but will increase when appropriate; increase ambulation Recommendations To Nursing Amount of Assist Needed 1 Person Assist Discharge Recommendations PT Discharge Recommendations Home with Assistance Home Health SNF Rehab Other Discharge Recommendations Pt requiring SNF rehab at this time but when able to progress towards goals may go home with spouse to assist. home health recommendation also depending on pt's progress. Equipment Needed for Home Before FWW depending on progress Discharge
[2018-03-30] MEDS: CEFTRIAXONE 2 GM/50 ML FROZ.PIGGY IV (16:54)
[2018-03-30] MEDS: SODIUM CHLORIDE 0.9% 250 ML 21 ML IV (16:54)
[2018-03-30] MEDS: NYSTATIN POWDER 30 GM 1 APPLIC TOP (16:59)
[2018-03-30] MEDS: DOXAZOSIN 4 MG TABLET 8 MG PO (16:59)
[2018-03-30] MEDS: INSULIN ASPART 100 UNIT/ML INSULN PEN SUBCUT (16:59)
[2018-03-30] MEDS: MUPIROCIN CREAM 15 GM 1 APPLIC TOP (20:16)
[2018-03-30] MEDS: AZITHROMYCIN 250 MG TABLET 500 MG PO (20:16)
[2018-03-30] MEDS: ATORVASTATIN 20 MG TABLET 40 MG PO (20:16)
--- NOTE | 2018-03-30 22:02 | PM.PN.1 ---
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 The patient is resting in bed comfortably and in no acute distress. He reports that his breathing feels improved. He continues to be on 4 L of supplemental oxygen via nasal cannula. He headache, ear pain, rhinitis, sore throat, cough, shortness of breath, chest pain, abdominal pain, nausea, vomiting, fever, chills, dysuria, diarrhea or constipation. He does endorse nasal congestion. He also reports that the fullness he feels after eating has resolved today. He is voiding and eliminating without difficulty. Exam Vital Signs (past 8 hours): - 03/30/18 15:30 03/30/18 20:00 03/30/18 20:03 Temperature 98.1 F 98.2 F 99.7 F H Pulse Rate 70 82 75 Respiratory Rate 19 18 18 Blood Pressure 130/77 124/85 144/83 H Pulse Oximetry 95 93 93 Oxygen Delivery Method Nasal Cannula Oxygen Flow Rate 4 Narrative Exam Narrative: General: Elderly gentleman sitting in bed and in no acute distress, appears chronically ill, appropriately interactive. HEENT: Normocephalic, atraumatic. External ears without defect. Pupils equal, round, and reactive to light. Anicteric sclerae, moist conjunctivae, and no lid lag. Oropharynx free of erythema and cobble stoning with moist mucosa. Neck: Supple with full range of motion. No lymphadenopathy or thyromegaly. Cardiovascular: Regular rate and rhythm without murmurs, rubs, or gallops appreciated. Pulmonary: Clear to auscultation bilaterally although lung sounds diminished at left base without crackles, wheezes, or rhonchi. Normal respiratory effort with no use of accessory muscles. Abdomen: Bowel tones present. Soft, non-tender, protuberant. No hepatosplenomegaly or masses appreciated. Extremities: No clubbing, cyanosis, or edema. Abrasion to left kneecap from several ground level falls. Skin: Normal temperature, turgor, and texture; no rash, ulcers, or subcutaneous nodules appreciated. Neurological: Cranial nerves grossly intact. Several falls due to progressive weakness over the last several weeks. Psychiatric: Normal mood and affect. Alert and oriented to person, place, and time. Objective Labs Result Diagrams: 03/30/18 05:35 03/30/18 05:35 Labs: Laboratory Results - last 24 hr 03/29/18 03/30/18 03/30/18 21:00 05:35 05:35 WBC 3.7 L RBC 3.14 L Hgb 10.6 L Hct 30.3 L MCV 96.7 MCH 33.7 MCHC 34.8 RDW 14.2 Plt Count 74 L Neut % (Auto) 76.1 H Lymph % (Auto) 13.1 L [place] % (Auto) 10.0 Eos % (Auto) 0.6 L Baso % (Auto) 0.2 Neut # (Auto) 2800 Sodium 138 Potassium 3.3 L Chloride 104 Carbon Dioxide 28 BUN 14 Creatinine 1.00 Estimated GFR > 60.0 BUN/Creatinine Ratio 14.0 Glucose 118 H Calcium 8.6 Total Bilirubin 1.2 AST 21 ALT 23 Alkaline Phosphatase 60 Total Protein 5.4 L Albumin 2.9 L Globulin 2.5 Albumin/Globulin Ratio 1.2 Chlamy pneumoniae PCR Not detected Adenovirus (PCR) Not detected B.parapertussis DNA PCR Not detected Coronavirus OC43 (PCR) Not detected Coronavirus HKU1 (PCR) Not detected Coronavirus 229E (PCR) Not detected Coronavirus NL63 (PCR) Not detected Human Metapneumovir PCR Not detected Influenza Type A (PCR) Not detected Influenza Type B (PCR) Not detected M. 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 1. Acute left lower lobe pneumonia secondary to possible post-obstructive process from small cell carcinoma, present on admission. Active. -Status post left lung radiation and prophylactic brain radiation, as well as, 4 rounds of chemotherapy with carboplatin and etoposide. -Patient presented with significant generalized progressive weakness with low-grade fever and nasal congestion but without cough or sputum production. Leukopenic and hypoxemic with oxygen saturations in the low 80s on admission. -Chest x-ray demonstrated left lower lobe consolidation. Discussed the patient with his oncologist, Dr. Ortiz, who recommends CT chest with contrast to further delineate lung process as below. -Ordered complete pneumonia workup including: Respiratory viral PCR, strep pneumoniae and Legionella urine antigens, sputum culture and blood culture x2, pending. -Continue ceftriaxone 2 g daily and azithromycin 500 mg daily. 2. Acute on chronic generalized weakness, present on admission. Active. -Likely secondary to left lower lobe pneumonia. However, discussed the patient thoroughly with Dr. Ortiz of Oncology who recommend CT chest with contrast to further delineate lung process and relays that this may be related to FUNCTIONAL ARCHITECT Radiation for which should be treated with steroids. -Urinalysis was performed and was grossly normal ruling out UTI. 3. 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 Presumed stable. -Continue Zytiga 1 g daily and prednisone 5 mg twice daily. 4. Pancytopenia, chronic, present on admission. Stable. -Likely multifactorial and related to her metastatic prostate cancer and small-cell cancer of the lung, as well as, multiple chemotherapies. -Continue to monitor blood counts daily. 5. Diabetes mellitus type 2, non-insulin using, present on admission. Presume stable. -Held metformin. -Ordered low-dose correctional scale insulin and ACHS blood glucose checks 6. Hyperlipidemia, present on admission. Stable. -Continue Atorvastatin 40 mg at bedtime. 7. Hypertension, present on admission. Stable. -Continue Carvedilol 6.25 mg twice daily. 8. Depression, present on admission. Stable. -Continue citalopram 10 mg daily. 9. BPH, present on admission. Presume stable. -Continue doxazosin 8 mg at bedtime. 10. Rheumatoid arthritis, present on admission. Stable. -Continue methotrexate 10 mg weekly on Monday and folic acid 0.8 mg daily. 11. Recent left arm thrombophlebitis status post PICC line removal and history of PE, present on admission. Presume stable. -Continue Xarelto 20 mg daily. 12. Glaucoma, chronic, present on admission. Stable. -Continue Timolol 1 dose left eye twice daily. Patient is admitted under inpatient status with expected length of stay greater than 2 midnights due to severity of presenting symptoms, risk of adverse event, and complexity of treatment plan. Quality VTE Deep Vein Thrombosis/Pulmonary Embolism Present on Admission: No
[2018-03-31] VITALS (10 sets, daily range): BP systolic 128–167; BP diastolic 68–93; PULSE 32–69; RESP 16–24; TEMP 36.4–37.2; O2SAT 89–97
[2018-03-31 06:12] LABS: Add Manual Diff / Slide Review NO; Basophils Percent Auto 0.2 % (0-2); Eosinophils Percent Auto 1.1 % (2-4); Hematocrit 30.2 % (41-53); Hemoglobin 10.5 g/dL (13.5-17.5); Lymphocytes Percent Auto 16.5 % (25-40); Mean Corpuscular HGB Conc 34.7 % (30-36); Mean Corpuscular Hemoglobin 33.8 PG (26-34); Mean Corpuscular Volume 97.3 fL (80-100); Monocytes Percent Auto 11.2 % (3-14); Neutrophils Absolute Auto 2600 /uL (1500-7000); Platelet Count 90 X10^3/uL (150-400); White Blood Cell Count 3.7 X10^3/uL (4.5-11.0)
[2018-03-31 06:39] LABS: Alanine Aminotransferase 24 IU/L (21-72); Albumin 2.9 g/dL (3.5-5.0); Albumin Globulin Ratio 1.2 (1.0-2.8); Alkaline Phosphatase 60 U/L (38-126); Aspartate Aminotransferase 22 IU/L (17-59); BUN Creatinine Ratio 17.8 (6-22); Bilirubin Total 0.9 mg/dL (0.2-1.3); Blood Urea Nitrogen 16 mg/dL (9-20); Calcium 8.5 mg/dL (8.4-10.2); Carbon Dioxide 27 mmol/L (22-32); Chloride 104 mmol/L (98-107); Estimated Glomerular Filt Rate > 60.0 mL/min (>60); Globulin 2.5 g/dL (1.7-4.1); Glucose 129 mg/dL (80-110); HEMOLYSIS < 15 (0-50); Magnesium 2.2 mg/dL (1.6-2.3); Potassium 3.3 mmol/L (3.4-5.1); Sodium 140 mmol/L (137-145); Total Protein 5.4 g/dL (6.3-8.2)
[2018-03-31 07:57] LABS: Procalcitonin 0.16 ng/mL (<0.5)
[2018-03-31] MEDS: Abiraterone [Zytiga] 1,000 MG 1000 EACH PO (08:10)
[2018-03-31] MEDS: CARVEDILOL 6.25 MG TABLET PO ×2 (09:38→20:38)
[2018-03-31] MEDS: FOLIC ACID 0.4 MG TABLET 0.8 MG PO (09:38)
[2018-03-31] MEDS: CITALOPRAM 10 MG TABLET PO (09:38)
[2018-03-31] MEDS: POTASSIUM CHLORIDE 20 MEQ TAB PO (09:39)
[2018-03-31] MEDS: RIVAROXABAN 10 MG TABLET 20 MG PO (09:39)
[2018-03-31] MEDS: predniSONE 5 MG TABLET PO ×2 (09:39→20:38)
[2018-03-31] MEDS: TIMOLOL 0.5% OPHTH 1 DROPS EYE-LEFT ×2 (09:39→20:37)
[2018-03-31] MEDS: SODIUM CHLORIDE 0.9% FLUSH 10 ML IV ×3 (09:40→20:39)
[2018-03-31] MEDS: NYSTATIN POWDER 30 GM 1 APPLIC TOP ×2 (09:45→20:39)
--- NOTE | 2018-03-31 10:50 | PT.IPTN ---
Physical Therapy Treatment Note M2 PT-IP Current Condition Start: 03/30/18 16:51 Freq: NEEDED Status: Active Protocol: Document 03/31/18 10:50 RCC (Rec: 03/31/18 11:09 RCC [id number]) Physical Therapy Current Condition Current Condition Evaluation Date 03/30/18 Treatment Diagnosis GI bleed; PNA; generalized weakness Onset Date 03/29/18 Precautions Other Precautions O2 sat M3 PT-IP Subjective Start: 03/30/18 16:51 Freq: NEEDED Status: Active Protocol: Document 03/31/18 10:50 RCC (Rec: 03/31/18 11:09 RCC [id number]) Subjective Physical Therapy Visit Type Type Treatment Note Visit Start Time 10:36 Visit Stop Time 10:50 Total Visit Minutes 24 Number of LOAN REPRESENTATIVE Visits 0 Physical Therapy Visit Comments Patient Comments pt willing to walk in the hallway, states he slept well last night, no breathing issues per pt today. M4 PT-IP Mobility and Gait Start: 03/30/18 16:51 Freq: NEEDED Status: Active Protocol: Document 03/31/18 10:50 RCC (Rec: 03/31/18 11:09 RCC [id number]) PT-Transfer Assessment Sit to and From Stand Sit to and from Stand Standby Assistance Use of Upper Extremities Equipment Transfer Assistive Device Gait Belt Front Wheeled Walker Orthotic/Prosthetic Devices or Brace: No Gait Assessment Gait Gait Assistance Required: Contact Guard Assist 1 Person Assist Distance (Feet) 160 Assistive Devices Assistive Device Gait Belt Front Wheeled Walker Orthotic/Prosthetic Devices or Brace: No Gait Deviations General Gait Pattern Decreased Stride Length Decreased Feet Clearance Factors Limiting Gait Function Factors Limiting Gait Function Decreased Activity Tolerance Decreased Sensation Decreased Strength Poor Balance Comments Gait Comments Pt on 4-L O2 during ambulation per RN request. O2 saturation 98% after ambulation, WI 87 bpm. RT in room at end of session to decrease O2 delivery. No c/o SOB. M5 PT-IP Objective Assessments Start: 03/30/18 16:51 Freq: NEEDED Status: Active Protocol: Document 03/30/18 14:34 AB (Rec: 03/30/18 17:09 AB [id number]) Orientation Orientation/Cognition Level of Alertness Alert Orientation Name Place Situation Safety Awareness Decreased Safety Awareness Gross Range of Motion Lower Extremity ROM Assessment Within Functional Limits Strength Lower Extremity Strength Assessment Bilaterally Impaired Hip 4-/5 Knee 3+/5 Sensation Assessment Sensation Gross Sensation Right LE Impaired Left LE Impaired Light Touch Impaired Proprioception (Position) Impaired Sensation Description Numbness Comments Sensation Comments stated that he only has ~ 10% sensation on BLE compared to UE sensation Muscle Tone Muscle Tone WNL Yes M6 PT-IP Treatment Start: 03/30/18 16:51 Freq: NEEDED Status: Active Protocol: Document 03/30/18 14:34 AB (Rec: 03/30/18 17:09 AB [id number]) Physical Therapy Treatment Education Education Provided Safety M7 PT-IP Assessment and Plan Start: 03/30/18 16:51 Freq: NEEDED Status: Active Protocol: Document 03/31/18 10:50 RCC (Rec: 03/31/18 11:09 RCC [id number]) PT Summary Assessment and Plan Summary Assessment Summary Pt was able to improve his gait distance today, no c/o SOB with activity. He was on 4 -L O2 during this session, with O2 saturation WNL during treatment. Will continue to monitor for progression of gait and activity as tolerated , but given the amount of progress this session has shown, pt likely to benefit from 2x/day treatment as long as he continues to improve with respiratory treatment and medically. Pt at this time is still not yet ready to tolerate stair training, which is essential in d/c disposition given he has 16 steps to enter/exit his home. Goals Bed Mobility Goal Independent Transfer Goal Standby Assistance Front Wheeled Walker Gait Goal Standby Assistance Front Wheel Walker Gait Distance 150 Other Goals up/down 16 steps with bilateral rails CGA Days to Meet Goals 5 Frequency of Treatment Frequency Of Treatment Twice a Day Treatment Plan Other Recommendations and Next Treatment prog. gait, stair training Focus when closer to d/c with CG training. Recommendations To Nursing Amount of Assist Needed 1 Person Assist Discharge Recommendations PT Discharge Recommendations Home with Assistance Home Health SNF Rehab Other Discharge Recommendations SNF vs. home with assist and HH, requires ongoing assessment and stair management training. Equipment Needed for Home Before FWW depending on progress Discharge
--- NOTE | 2018-03-31 13:59 | OT.IP.TRT ---
Current Diagnoses Other pneumonia, unspecified organism (03/29/18) Occupational Therapy Treatment Note M3 OT- IP Subjective and Pain Start: 03/30/18 13:00 Freq: Status: Active Protocol: Document 03/31/18 13:52 [facility] (Rec: 03/31/18 13:59 [facility] [id number]) OT- Subjective Occupational Therapy Visit Type Type Patient Refusal Notes Spoke at length with Pt and regarding OT needs. Pt states would rather prefer to work with PT for strengthening , activity tolerance, and endurance. Pt states can assist for ADL needs if needed . Pt's asking if she is allowed to assist pt to the bathroom, conferred with PT , nursing and all decided due to pt still on O2 and inconsistent for level of assist would be best to call for staff for assist. Therefore discharge pt for OT eval.
--- NOTE | 2018-03-31 15:40 | PT.IPTN ---
Current Diagnoses Other pneumonia, unspecified organism (03/29/18) Physical Therapy Treatment Note M2 PT-IP Current Condition Start: 03/30/18 16:51 Freq: NEEDED Status: Active Protocol: Document 03/31/18 10:50 RCC (Rec: 03/31/18 11:09 RCC [id number]) Physical Therapy Current Condition Current Condition Evaluation Date 03/30/18 Treatment Diagnosis GI bleed; PNA; generalized weakness Onset Date 03/29/18 Precautions Other Precautions O2 sat M3 PT-IP Subjective Start: 03/30/18 16:51 Freq: NEEDED Status: Active Protocol: Document 03/31/18 15:35 GGD (Rec: 03/31/18 15:40 GGD [email or web address]) Subjective Physical Therapy Visit Type Type Treatment Note Visit Start Time 15:05 Visit Stop Time 15:35 Total Visit Minutes 30 Number of PHOTO EDITOR Visits 1 Physical Therapy Visit Comments Patient Comments Pt willing to work with PT, but is a little tired. M4 PT-IP Mobility and Gait Start: 03/30/18 16:51 Freq: NEEDED Status: Active Protocol: Document 03/31/18 15:35 GGD (Rec: 03/31/18 15:40 GGD [id number]) PT-Transfer Assessment Sit to and From Stand Sit to and from Stand Standby Assistance Use of Upper Extremities Equipment Transfer Assistive Device Gait Belt Front Wheeled Walker Orthotic/Prosthetic Devices or Brace: No Transfers Transfer Destination Chair Toilet Transfer Ability Level of Assist Contact Guard Assistance Gait Assessment Gait Gait Assistance Required: Contact Guard Assist 1 Person Assist Distance (Feet) 450 Assistive Devices Assistive Device Gait Belt Front Wheeled Walker Orthotic/Prosthetic Devices or Brace: No Gait Deviations General Gait Pattern Decreased Stride Length Decreased Feet Clearance Factors Limiting Gait Function Factors Limiting Gait Function Decreased Activity Tolerance Decreased Sensation Decreased Strength Poor Balance Comments Gait Comments O2 88-90% on RA at rest, 91-94 % with activity on RA Stair Climbing Assessment Evaluation Level of Assist On Stairs Standby Assistance Devices Stair Climbing Assistive Devices Left Railing Right Railing Technique/Endurance Stair Climbing Direction Ascend and Descend Stair Climbing Technique Step Over Step Number of Steps Climbed 3 Query Text: Stair Climbing Set # Repetitions (reps) 1 M5 PT-IP Objective Assessments Start: 03/30/18 16:51 Freq: NEEDED Status: Active Protocol: Document 03/30/18 14:34 AB (Rec: 03/30/18 17:09 AB [id number]) Orientation Orientation/Cognition Level of Alertness Alert Orientation Name Place Situation Safety Awareness Decreased Safety Awareness Gross Range of Motion Lower Extremity ROM Assessment Within Functional Limits Strength Lower Extremity Strength Assessment Bilaterally Impaired Hip 4-/5 Knee 3+/5 Sensation Assessment Sensation Gross Sensation Right LE Impaired Left LE Impaired Light Touch Impaired Proprioception (Position) Impaired Sensation Description Numbness Comments Sensation Comments stated that he only has ~ 10% sensation on BLE compared to UE sensation Muscle Tone Muscle Tone WNL Yes M6 PT-IP Treatment Start: 03/30/18 16:51 Freq: NEEDED Status: Active Protocol: Document 03/30/18 14:34 AB (Rec: 03/30/18 17:09 AB [id number]) Physical Therapy Treatment Education Education Provided Safety M7 PT-IP Assessment and Plan Start: 03/30/18 16:51 Freq: NEEDED Status: Active Protocol: Document 03/31/18 15:35 GGD (Rec: 03/31/18 15:40 GGD [email or web address]) PT Summary Assessment and Plan Summary Assessment Summary Pt improving with mobility. He able to progress his gait distance without C/O SOB. He had mild unsteadiness with gait to the left. He was safe and stable with stair mobility. Frequency of Treatment Frequency Of Treatment Twice a Day Treatment Plan Other Recommendations and Next Treatment progress gait with 4WW vs FWW, Focus may need walker at D/C. Recommendations To Nursing Amount of Assist Needed 1 Person Assist Discharge Recommendations PT Discharge Recommendations Home with Assistance Home Health
[2018-03-31] MEDS: CEFTRIAXONE 2 GM/50 ML FROZ.PIGGY IV (17:01)
[2018-03-31] MEDS: INSULIN ASPART 100 UNIT/ML INSULN PEN SUBCUT (17:02)
[2018-03-31 18:57] LABS: Clostridium Difficile Tox PCR Negative for C. diff
--- NOTE | 2018-03-31 19:29 | P.PN_ITS ---
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 The patient is resting in bed comfortably and in no acute distress. He reports that his breathing and strength overall feel improved. He continues to be on minimal amount of supplemental oxygen 1L via nasal cannula which was titrated off. He denies headache, sore throat, cough, shortness of breath, chest pain, abdominal pain, nausea, vomiting, fever, chills, dysuria, diarrhea or constipation. He does endorse nasal congestion that he admits is chronic. He is voiding and eliminating without difficulty. Exam Vital Signs (past 8 hours): - 03/31/18 12:55 03/31/18 15:19 03/31/18 17:56 Temperature 98.6 F 98.6 F Pulse Rate 68 59 L Respiratory Rate 24 20 Blood Pressure 128/69 146/68 H Pulse Oximetry 96 89 L 95 Oxygen Delivery Method Nasal Cannula Oxygen Flow Rate 2 Narrative Exam Narrative: General: Elderly gentleman sitting in bed and in no acute distress, appears chronically ill, appropriately interactive. HEENT: Normocephalic, atraumatic. External ears without defect. Pupils equal, round, and reactive to light. Anicteric sclerae, moist conjunctivae, and no lid lag. Oropharynx free of erythema and cobble stoning with moist mucosa. Neck: Supple with full range of motion. No lymphadenopathy or thyromegaly. Cardiovascular: Regular rate and rhythm without murmurs, rubs, or gallops appreciated. Pulmonary: Clear to auscultation bilaterally although lung sounds diminished at left base fine crackles. No wheezes, or rhonchi. Normal respiratory effort with no use of accessory muscles. Abdomen: Bowel tones present. Soft, non-tender, protuberant. No hepatosplenomegaly or masses appreciated. Extremities: No clubbing, cyanosis, or edema. Abrasion to left kneecap from several ground level falls healing. Skin: Normal temperature, turgor, and texture; no rash, ulcers, or subcutaneous nodules appreciated. Neurological: Cranial nerves grossly intact. Several falls due to progressive weakness over the last several weeks. Psychiatric: Normal mood and affect. Alert and oriented to person, place, and time. Objective Labs Result Diagrams: 03/31/18 05:18 03/31/18 05:18 Labs: Laboratory Results - last 24 hr 03/31/18 03/31/18 03/31/18 05:18 05:18 05:18 WBC 3.7 L RBC 3.10 L Hgb 10.5 L Hct 30.2 L MCV 97.3 MCH 33.8 MCHC 34.7 RDW 14.0 Plt Count 90 L Neut % (Auto) 71.0 Lymph % (Auto) 16.5 L [place] % (Auto) 11.2 Eos % (Auto) 1.1 L Baso % (Auto) 0.2 Neut # (Auto) 2600 Sodium 140 Potassium 3.3 L Chloride 104 Carbon Dioxide 27 BUN 16 Creatinine 0.90 Estimated GFR > 60.0 BUN/Creatinine Ratio 17.8 Glucose 129 H Calcium 8.5 Magnesium 2.2 Total Bilirubin 0.9 AST 22 ALT 24 Alkaline Phosphatase 60 Total Protein 5.4 L Albumin 2.9 L Globulin 2.5 Albumin/Globulin Ratio 1.2 Procalcitonin 0.16 C. difficile Tox (PCR) 03/31/18 17:25 WBC RBC Hgb Hct MCV MCH MCHC RDW Plt Count Neut % (Auto) Lymph % (Auto) [place] % (Auto) Eos % (Auto) Baso % (Auto) Neut # (Auto) Sodium Potassium Chloride Carbon Dioxide BUN Creatinine Estimated GFR BUN/Creatinine Ratio Glucose Calcium Magnesium Total Bilirubin AST ALT Alkaline Phosphatase Total Protein Albumin Globulin Albumin/Globulin Ratio Procalcitonin C. difficile Tox (PCR) Negative for c. 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 1. Acute left lower lobe community-acquired pneumonia, present on admission. Active. -Status post left lung radiation and prophylactic brain radiation, as well as , 4 rounds of chemotherapy with carboplatin and etoposide. -Patient presented with significant generalized progressive weakness with low -grade fever and nasal congestion but without cough or sputum production. Leukopenic and hypoxemic with oxygen saturations in the low 80s on admission. -Chest x-ray demonstrated left lower lobe consolidation. Discussed the patient with his oncologist, Dr. Ortiz, who recommended early CT chest with contrast to further delineate lung process which demonstrated left lower lobe pneumonia without progression of small cell carcinoma. -Ordered complete pneumonia workup including: Respiratory viral PCR negative , strep pneumoniae and Legionella urine antigens pending, sputum culture not obtained as not coughing and blood culture x2 no growth to date. -Continue ceftriaxone 2 g daily and azithromycin 500 mg daily. 2. Acute on chronic generalized weakness, present on admission. Active. -Secondary to left lower lobe pneumonia. However, discussed the patient thoroughly with Dr. Ortiz of Oncology who relayed that this may be related to PHYSICAL SCIENCES INSTRUCTOR Radiation for which should be treated with steroids, however, weakness is vastly improving with PT and treatment of pneumonia. 3. 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 Presumed stable. -Continue Zytiga 1 g daily and prednisone 5 mg twice daily. 4. Pancytopenia, chronic, present on admission. Stable. -Likely multifactorial and related to her metastatic prostate cancer and small-cell cancer of the lung, as well as, multiple chemotherapies. -Continue to monitor blood counts daily. 5. Diabetes mellitus type 2, non-insulin using, present on admission. Presume stable. -Held metformin. -Ordered low-dose correctional scale insulin and ACHS blood glucose checks 6. Hyperlipidemia, present on admission. Stable. -Continue Atorvastatin 40 mg at bedtime. 7. Hypertension, present on admission. Stable. -Continue Carvedilol 6.25 mg twice daily. 8. Depression, present on admission. Stable. -Continue citalopram 10 mg daily. 9. BPH, present on admission. Presume stable. -Continue doxazosin 8 mg at bedtime. 10. Rheumatoid arthritis, present on admission. Stable. -Continue methotrexate 10 mg weekly on Monday and folic acid 0.8 mg daily. 11. Recent left arm thrombophlebitis status post PICC line removal and history of PE, present on admission. Presume stable. -Continue Xarelto 20 mg daily. 12. Glaucoma, chronic, present on admission. Stable. -Continue Timolol 1 dose left eye twice daily. Disposition: Patient likely to discharge in 1-2 days depending upon improvement in generalized weakness and continued treatment of pneumonia with titration of oxygen. Quality VTE Deep Vein Thrombosis/Pulmonary Embolism Present on Admission: No
[2018-03-31] MEDS: ATORVASTATIN 20 MG TABLET 40 MG PO (20:38)
[2018-03-31] MEDS: DOXAZOSIN 4 MG TABLET 8 MG PO (20:38)
[2018-03-31] MEDS: AZITHROMYCIN 250 MG TABLET 500 MG PO (20:38)
[2018-03-31] MEDS: MUPIROCIN CREAM 15 GM 1 APPLIC TOP (20:39)
--- NOTE | 2018-03-31 21:15 | PC.NURSE ---
SHIFT NOTE Received pt with sats in mid to high 80's on room air. pt awake and sitting up in chair, denies SOB or dyspnea. pt's unconcerned about saturation levels. 2L O2 via NC placed with sat increasing to 95%. pt with increased appetite this evening. pt reports diarrhea, sample sent to lab. declined yogurt at this time. denies pain. pt's at bedside, reinforced not to get pt up without staff assistance. bed alarm fro safety. call light within reach.
[2018-04-01] VITALS (14 sets, daily range): BP systolic 107–194; BP diastolic 70–99; PULSE 51–75; RESP 16–20; TEMP 36.6–36.8; O2SAT 92–98
[2018-04-01 06:10] LABS: Add Manual Diff / Slide Review NO; Basophils Percent Auto 0.3 % (0-2); Eosinophils Percent Auto 1.2 % (2-4); Hematocrit 30.3 % (41-53); Hemoglobin 10.6 g/dL (13.5-17.5); Lymphocytes Percent Auto 17.1 % (25-40); Mean Corpuscular Hemoglobin 33.7 PG (26-34); Mean Corpuscular Volume 96.4 fL (80-100); Neutrophils Absolute Auto 2700 /uL (1500-7000); Neutrophils Percent Auto 70.4 % (50-75); Platelet Count 102 X10^3/uL (150-400); Red Blood Cell Count 3.15 X10^6/uL (4.5-5.9); Red Cell Distribution Width 14.2 % (11.6-14.8); White Blood Cell Count 3.8 X10^3/uL (4.5-11.0)
[2018-04-01 07:24] LABS: Procalcitonin < 0.05 ng/mL (<0.5)
--- NOTE | 2018-04-01 07:51 | PC.NURSE ---
Addendum entered by Tammy Jacques R.N. 04/01/18 14:38: MS /RESP - pt ambul hallway with phys therapy and did stair practice, at rest 02 92-94%, per phys therapy, did desat to 89-90% with some fatigue after stair practice, rested and was able ambul back to room, at rest 02 sat maintaining 92%. Original Note: AM NOTE - pt awakened, states didn't sleep well last night as his own cpap machine hosing freq disconnected and the mask not well fitting, up dangle this am and bs dim, coarse crackles l mid lobe, ra sat 93-94%, denies chest pain or sob, hr 78, + bt, RT contacted and came up to trouble shoot machine and will call his company [employer] this am.
[2018-04-01 07:53] LABS: Alanine Aminotransferase 22 IU/L (21-72); Albumin Globulin Ratio 1.3 (1.0-2.8); Alkaline Phosphatase 59 U/L (38-126); Aspartate Aminotransferase 29 IU/L (17-59); BUN Creatinine Ratio 15.6 (6-22); Bilirubin Total 0.8 mg/dL (0.2-1.3); Blood Urea Nitrogen 14 mg/dL (9-20); Calcium 8.7 mg/dL (8.4-10.2); Carbon Dioxide 27 mmol/L (22-32); Chloride 105 mmol/L (98-107); Estimated Glomerular Filt Rate > 60.0 mL/min (>60); Globulin 2.4 g/dL (1.7-4.1); Glucose 136 mg/dL (80-110); HEMOLYSIS < 15 (0-50); Potassium 3.3 mmol/L (3.4-5.1); Sodium 141 mmol/L (137-145); Total Protein 5.4 g/dL (6.3-8.2)
[2018-04-01] MEDS: LACTOBACILLUS ACIDOPHILUS TABLET 1 EACH PO ×2 (08:30→17:00)
[2018-04-01] MEDS: Abiraterone [Zytiga] 1,000 MG 1000 EACH PO (08:30)
[2018-04-01] MEDS: SODIUM CHLORIDE 0.9% FLUSH 10 ML IV ×3 (10:00→20:03)
[2018-04-01] MEDS: POTASSIUM CHLORIDE 20 MEQ TAB PO (10:01)
[2018-04-01] MEDS: CARVEDILOL 6.25 MG TABLET PO (10:02)
[2018-04-01] MEDS: FOLIC ACID 0.4 MG TABLET 0.8 MG PO (10:02)
[2018-04-01] MEDS: CITALOPRAM 10 MG TABLET PO (10:03)
[2018-04-01] MEDS: predniSONE 5 MG TABLET PO ×2 (10:03→20:03)
[2018-04-01] MEDS: TIMOLOL 0.5% OPHTH 1 DROPS EYE-LEFT ×2 (10:03→20:03)
[2018-04-01] MEDS: RIVAROXABAN 10 MG TABLET 20 MG PO (10:03)
[2018-04-01] MEDS: MUPIROCIN CREAM 15 GM 1 APPLIC TOP ×2 (10:04→20:04)
[2018-04-01] MEDS: NYSTATIN POWDER 30 GM 1 APPLIC TOP ×2 (10:10→20:05)
--- NOTE | 2018-04-01 10:37 | RT ---
Called by HERBER Munoz this morning who reports that patient had dificulty using home CPAP last night. Went to room and spoke to patient and his who report that patient's machine has been acting up and they have tried to get ahold of [employer] to send a replacement as it is an older machine. They asked if I might have some pull in helping them do that. I told them I would be happy to contact Deidre Bee, my contact at [facility]. Phone message left with Deidre and awaiting a call back.
--- NOTE | 2018-04-01 12:25 | PT.IPTN ---
Current Diagnoses Other pneumonia, unspecified organism (03/29/18) Physical Therapy Treatment Note M2 PT-IP Current Condition Start: 03/30/18 16:51 Freq: NEEDED Status: Active Protocol: Document 03/31/18 10:50 RCC (Rec: 03/31/18 11:09 RCC [id number]) Physical Therapy Current Condition Current Condition Evaluation Date 03/30/18 Treatment Diagnosis GI bleed; PNA; generalized weakness Onset Date 03/29/18 Precautions Other Precautions O2 sat M3 PT-IP Subjective Start: 03/30/18 16:51 Freq: NEEDED Status: Active Protocol: Document 04/01/18 10:34 CLB (Rec: 04/01/18 12:25 CLB [id number]) Subjective Physical Therapy Visit Type Type Treatment Note Visit Start Time 10:34 Visit Stop Time 11:05 Total Visit Minutes 29 Number of OPERATING ROOM ASSISTANT Visits 2 Physical Therapy Visit Comments Patient Comments Pt willing to work with PT. Therapy Pain Assessment Pain Present Pain Present Denied Pain M4 PT-IP Mobility and Gait Start: 03/30/18 16:51 Freq: NEEDED Status: Active Protocol: Document 04/01/18 10:34 CLB (Rec: 04/01/18 12:25 CLB [id number]) PT-Bed Mobility Assessment Supine to Sit Supine to Sit Standby Assistance Head of Bed Elevated PT-Transfer Assessment Sit to and From Stand Sit to and from Stand Standby Assistance Use of Upper Extremities Equipment Transfer Assistive Device Gait Belt 4 Wheeled Walker Orthotic/Prosthetic Devices or Brace: No Transfers Transfer Destination Bed Chair Transfer Ability Level of Assist Standby Assistance Gait Assessment Gait Gait Assistance Required: Contact Guard Assist 1 Person Assist Distance (Feet) 300 Assistive Devices Assistive Device Gait Belt Front Wheeled Walker Orthotic/Prosthetic Devices or Brace: No Gait Deviations General Gait Pattern Decreased Stride Length Decreased Feet Clearance Factors Limiting Gait Function Factors Limiting Gait Function Decreased Activity Tolerance Decreased Sensation Decreased Strength Poor Balance Comments Gait Comments O2 on RA at rest 88-90%, O2 on RA with activity 90-93% Stair Climbing Assessment Evaluation Level of Assist On Stairs Standby Assistance Devices Stair Climbing Assistive Devices Left Railing Right Railing Technique/Endurance Stair Climbing Direction Ascend and Descend Stair Climbing Technique Step Over Step Number of Steps Climbed 3 Query Text: Stair Climbing Set # Repetitions (reps) 2 Comments Stair Climbing Comments Pt required sitting rest after second set. M5 PT-IP Objective Assessments Start: 03/30/18 16:51 Freq: NEEDED Status: Active Protocol: Document 03/30/18 14:34 AB (Rec: 03/30/18 17:09 AB [id number]) Orientation Orientation/Cognition Level of Alertness Alert Orientation Name Place Situation Safety Awareness Decreased Safety Awareness Gross Range of Motion Lower Extremity ROM Assessment Within Functional Limits Strength Lower Extremity Strength Assessment Bilaterally Impaired Hip 4-/5 Knee 3+/5 Sensation Assessment Sensation Gross Sensation Right LE Impaired Left LE Impaired Light Touch Impaired Proprioception (Position) Impaired Sensation Description Numbness Comments Sensation Comments stated that he only has ~ 10% sensation on BLE compared to UE sensation Muscle Tone Muscle Tone WNL Yes M6 PT-IP Treatment Start: 03/30/18 16:51 Freq: NEEDED Status: Active Protocol: Document 03/30/18 14:34 AB (Rec: 03/30/18 17:09 AB [id number]) Physical Therapy Treatment Education Education Provided Safety M7 PT-IP Assessment and Plan Start: 03/30/18 16:51 Freq: NEEDED Status: Active Protocol: Document 04/01/18 10:34 CLB (Rec: 04/01/18 12:25 CLB [id number]) PT Summary Assessment and Plan Summary Assessment Summary Pt continues to improve with all mobility. Pt able to ambulate on RA and climb two sets of three steps requiring seated rest break on 4WW seat. Pt then able to ambulate back to room. Pt trialed gait with 4WW needing cues for locking breaks and slowing pace with gait. Treatment Plan Other Recommendations and Next Treatment Pt will need walker before D/C Focus . Recommendations To Nursing Amount of Assist Needed 1 Person Assist Discharge Recommendations PT Discharge Recommendations Home with Assistance Home Health
--- NOTE | 2018-04-01 12:44 | RT ---
Spoke with Deidre cadet Aprde who spoke to Katheryn, the solution manager. They don't send anyone out after hours for broken CPAPs. We will have to call back tomorrow between 9 to 5 to set up someone coming out. I'm here tomorrow so will call then. Patient and his voiced their displeasure to me about [employer] and how hard it is to get ahold of anyone at the number they were provided and seemed amazed that the company dosn't service broken equipment outside of business hours. I voiced my understanding and agreement of their concerns and offered a hospital CPAP for the patient to use tonight which they are interested in.
[2018-04-01] MEDS: INSULIN ASPART 100 UNIT/ML INSULN PEN SUBCUT ×2 (13:42→17:00)
--- NOTE | 2018-04-01 15:27 | PT.IPTN ---
Current Diagnoses Other pneumonia, unspecified organism (03/29/18) Physical Therapy Treatment Note M2 PT-IP Current Condition Start: 03/30/18 16:51 Freq: NEEDED Status: Active Protocol: Document 03/31/18 10:50 RCC (Rec: 03/31/18 11:09 RCC [id number]) Physical Therapy Current Condition Current Condition Evaluation Date 03/30/18 Treatment Diagnosis GI bleed; PNA; generalized weakness Onset Date 03/29/18 Precautions Other Precautions O2 sat M3 PT-IP Subjective Start: 03/30/18 16:51 Freq: NEEDED Status: Active Protocol: Document 04/01/18 13:30 CLB (Rec: 04/01/18 15:27 CLB [id number]) Subjective Physical Therapy Visit Type Type Treatment Note Visit Start Time 13:30 Visit Stop Time 13:55 Total Visit Minutes 25 Number of 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 Therapy Pain Assessment Pain Present Pain Present Denied Pain M4 PT-IP Mobility and Gait Start: 03/30/18 16:51 Freq: NEEDED Status: Active Protocol: Document 04/01/18 13:30 CLB (Rec: 04/01/18 15:27 CLB [id number]) PT-Transfer Assessment Sit to and From Stand Sit to and from Stand Standby Assistance Use of Upper Extremities Equipment Transfer Assistive Device Gait Belt 4 Wheeled Walker Orthotic/Prosthetic Devices or Brace: No Transfers Transfer Destination Chair Transfer Ability Level of Assist Standby Assistance Gait Assessment Gait Gait Assistance Required: Contact Guard Assist 1 Person Assist Distance (Feet) 300 Assistive Devices Assistive Device Gait Belt Front Wheeled Walker Orthotic/Prosthetic Devices or Brace: No Gait Deviations General Gait Pattern Within Normal Limits Factors Limiting Gait Function Factors Limiting Gait Function Decreased Activity Tolerance Decreased Sensation Decreased Strength Poor Balance Comments Gait Comments O2 on RA remained 89-97% during activity. Stair Climbing Assessment Evaluation Level of Assist On Stairs Standby Assistance Devices Stair Climbing Assistive Devices Left Railing Right Railing Technique/Endurance Stair Climbing Direction Ascend and Descend Stair Climbing Technique Step Over Step Number of Steps Climbed 3 Query Text: Stair Climbing Set # Repetitions (reps) 3 Comments Stair Climbing Comments Pt climbed stairs SBA with . Pt needed a sitting rest break after then able to ambulate back to room. M5 PT-IP Objective Assessments Start: 03/30/18 16:51 Freq: NEEDED Status: Active Protocol: Document 03/30/18 14:34 AB (Rec: 03/30/18 17:09 AB [id number]) Orientation Orientation/Cognition Level of Alertness Alert Orientation Name Place Situation Safety Awareness Decreased Safety Awareness Gross Range of Motion Lower Extremity ROM Assessment Within Functional Limits Strength Lower Extremity Strength Assessment Bilaterally Impaired Hip 4-/5 Knee 3+/5 Sensation Assessment Sensation Gross Sensation Right LE Impaired Left LE Impaired Light Touch Impaired Proprioception (Position) Impaired Sensation Description Numbness Comments Sensation Comments stated that he only has ~ 10% sensation on BLE compared to UE sensation Muscle Tone Muscle Tone WNL Yes M6 PT-IP Treatment Start: 03/30/18 16:51 Freq: NEEDED Status: Active Protocol: Document 03/30/18 14:34 AB (Rec: 03/30/18 17:09 AB [id number]) Physical Therapy Treatment Education Education Provided Safety M7 PT-IP Assessment and Plan Start: 03/30/18 16:51 Freq: NEEDED Status: Active Protocol: Document 04/01/18 13:30 CLB (Rec: 04/01/18 15:27 CLB [id number]) PT Summary Assessment and Plan Summary Assessment Summary Pt ambulating with 4WW with improved safety awareness with no LOB or lean to left. Pt able to climb stairs SBA with present. Goals Bed Mobility Goal Independent Transfer Goal Standby Assistance Front Wheeled Walker Gait Goal Standby Assistance Front Wheel Walker Gait Distance 150 Other Goals up/down 16 steps with bilateral rails CGA Days to Meet Goals 5 Frequency of Treatment Frequency Of Treatment Twice a Day Treatment Plan Other Recommendations and Next Treatment Pt will need walker before D/C Focus . Recommendations To Nursing Amount of Assist Needed 1 Person Assist Discharge Recommendations PT Discharge Recommendations Home with Assistance Home Health
[2018-04-01] MEDS: CEFTRIAXONE 2 GM/50 ML FROZ.PIGGY IV (15:56)
[2018-04-01] MEDS: SODIUM CHLORIDE 0.9% 250 ML 21 ML IV (15:56)
--- NOTE | 2018-04-01 16:06 | CM.DPC ---
DCP Cont: Met briefly with . Patient was working with physical therapy walking down the andre. Discussed case at rounds with physical therapy and hospitalist. According to physical therapy, patient is progressing, but they live in apartment and need to use the stairs to get there. Discussed home health physical therapy with spouse, and she does not think that they need home health. Stated, if he gets tired, he can just sit for a while. Patient has already stated that he does not wish to go to skilled. P: DCP to continue to follow. Have face to face signed, in case family change their mind. Will check in with physical therapy to see how patient does. Mireya Lobo RN/[employer]
--- NOTE | 2018-04-01 17:13 | PM.PN.1 ---
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 Over the course of the afternoon and evening yesterday he had diarrhea and a stool sample was sent for C diff which was negative. Today the patient is resting in bedside chair. He reports that his breathing and strength continue to improve. He continues to work with physical therapy doing stairs today as he has 16 stairs to climb to get into his home. He is off of supplemental oxygen. He denies headache, sore throat, shortness of breath, chest pain, abdominal pain, nausea, vomiting, fever, chills, dysuria, or constipation. He is voiding and eliminating without difficulty. Exam Vital Signs (past 8 hours): - 04/01/18 11:21 04/01/18 12:00 04/01/18 13:22 Temperature 98 F Pulse Rate 57 L Respiratory Rate 20 Blood Pressure 158/95 H Pulse Oximetry 93 92 93 04/01/18 15:49 Temperature 98.1 F Pulse Rate 51 L Respiratory Rate 20 Blood Pressure 155/83 H Pulse Oximetry 94 Oxygen Delivery Method Room Air Oxygen Flow Rate 2 Narrative Exam Narrative: General: Elderly gentleman sitting in bed and in no acute distress, appears chronically ill, appropriately interactive. HEENT: Normocephalic, atraumatic. External ears without defect. Pupils equal, round, and reactive to light. Anicteric sclerae, moist conjunctivae, and no lid lag. Oropharynx free of erythema and cobble stoning with moist mucosa. Neck: Supple with full range of motion. No lymphadenopathy or thyromegaly. Cardiovascular: Regular rate and rhythm without murmurs, rubs, or gallops appreciated. Pulmonary: Clear to auscultation bilaterally with rhonchi now at left base. No wheezes. Normal respiratory effort with no use of accessory muscles. Abdomen: Bowel tones present. Soft, non-tender, protuberant. No hepatosplenomegaly or masses appreciated. Extremities: No clubbing, cyanosis, or edema. Abrasion to left kneecap from several ground level falls healing. Skin: Normal temperature, turgor, and texture; no rash, ulcers, or subcutaneous nodules appreciated. Neurological: Cranial nerves grossly intact. Several falls due to progressive weakness over the last several weeks. Psychiatric: Normal mood and affect. Alert and oriented to person, place, and time. Objective Labs Result Diagrams: 04/01/18 05:25 04/01/18 05:25 Labs: Laboratory Results - last 24 hr 03/31/18 04/01/18 04/01/18 17:25 05:25 05:25 WBC 3.8 L RBC 3.15 L Hgb 10.6 L Hct 30.3 L MCV 96.4 MCH 33.7 MCHC 35.0 RDW 14.2 Plt Count 102 L Neut % (Auto) 70.4 Lymph % (Auto) 17.1 L [place] % (Auto) 11.0 Eos % (Auto) 1.2 L Baso % (Auto) 0.3 Neut # (Auto) 2700 Sodium Potassium Chloride Carbon Dioxide BUN Creatinine Estimated GFR BUN/Creatinine Ratio Glucose Calcium Total Bilirubin AST ALT Alkaline Phosphatase Total Protein Albumin Globulin Albumin/Globulin Ratio Procalcitonin < 0.05 C. difficile Tox (PCR) Negative for c. diff 04/01/18 05:25 WBC RBC Hgb Hct MCV MCH MCHC RDW Plt Count Neut % (Auto) Lymph % (Auto) [place] % (Auto) Eos % (Auto) Baso % (Auto) Neut # (Auto) Sodium 141 Potassium 3.3 L Chloride 105 Carbon Dioxide 27 BUN 14 Creatinine 0.90 Estimated GFR > 60.0 BUN/Creatinine Ratio 15.6 Glucose 136 H Calcium 8.7 Total Bilirubin 0.8 AST 29 ALT 22 Alkaline Phosphatase 59 Total Protein 5.4 L Albumin 3.0 L Globulin 2.4 Albumin/Globulin Ratio 1.3 Procalcitonin C. 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 1. Acute left lower lobe community-acquired pneumonia, present on admission. Active. -Status post left lung radiation and prophylactic brain radiation, as well as, 4 rounds of chemotherapy with carboplatin and etoposide. -Patient presented with significant generalized progressive weakness with low-grade fever and nasal congestion but without cough or sputum production. Leukopenic and hypoxemic with oxygen saturations in the low 80s on admission. -Chest x-ray demonstrated left lower lobe consolidation. Discussed the patient with his oncologist, Dr. Ortiz, who recommended early CT chest with contrast to further delineate lung process which demonstrated left lower lobe pneumonia without progression of small cell carcinoma. -Ordered complete pneumonia workup including: Respiratory viral PCR negative, strep pneumoniae and Legionella urine antigens pending, sputum culture not obtained as not coughing and blood culture x2 no growth to date. -Continue ceftriaxone 2 g daily and azithromycin 500 mg daily today is last dose. 2. Acute on chronic generalized weakness, present on admission. Active. -Secondary to left lower lobe pneumonia. However, discussed the patient thoroughly with Dr. 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 3. 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 Presumed stable. -Continue Zytiga 1 g daily and prednisone 5 mg twice daily. 4. Pancytopenia, chronic, present on admission. Stable. -Likely multifactorial and related to her metastatic prostate cancer and small-cell cancer of the lung, as well as, multiple chemotherapies. -Continue to monitor blood counts daily. 5. Diabetes mellitus type 2, non-insulin using, present on admission. Presume stable. -Last hemoglobin A1c 7.1%. -Held metformin. -Ordered low-dose correctional scale insulin and ACHS blood glucose checks 6. Hyperlipidemia, present on admission. Stable. -Continue Atorvastatin 40 mg at bedtime. 7. Hypertension, present on admission. Stable. -Continue Carvedilol 6.25 mg twice daily. 8. Depression, present on admission. Stable. -Continue citalopram 10 mg daily. 9. BPH, present on admission. Presume stable. -Continue doxazosin 8 mg at bedtime. 10. Rheumatoid arthritis, present on admission. Stable. -Continue methotrexate 10 mg weekly on Monday and folic acid 0.8 mg daily. 11. Recent left arm thrombophlebitis status post PICC line removal and history of PE, present on admission. Presume stable. -Continue Xarelto 20 mg daily. 12. Glaucoma, chronic, present on admission. Stable. -Continue Timolol 1 dose left eye twice daily. Disposition: Patient likely to discharge in 1-2 days depending upon improvement in generalized weakness and continued treatment of pneumonia with titration of oxygen. Quality VTE Deep Vein Thrombosis/Pulmonary Embolism Present on Admission: No
--- NOTE | 2018-04-01 17:17 | P.PN_ITS ---
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 Over the course of the afternoon and evening yesterday he had diarrhea and a stool sample was sent for C diff which was negative. Today the patient is resting in bedside chair. He reports that his breathing and strength continue to improve. He continues to work with physical therapy doing stairs today as he has 16 stairs to climb to get into his home. He is off of supplemental oxygen. He denies headache, sore throat, shortness of breath, chest pain, abdominal pain, nausea, vomiting, fever, chills, dysuria, or constipation. He is voiding and eliminating without difficulty. Exam Vital Signs (past 8 hours): - 04/01/18 11:21 04/01/18 12:00 04/01/18 13:22 Temperature 98 F Pulse Rate 57 L Respiratory Rate 20 Blood Pressure 158/95 H Pulse Oximetry 93 92 93 04/01/18 15:49 Temperature 98.1 F Pulse Rate 51 L Respiratory Rate 20 Blood Pressure 155/83 H Pulse Oximetry 94 Oxygen Delivery Method Room Air Oxygen Flow Rate 2 Narrative Exam Narrative: General: Elderly gentleman sitting in bed and in no acute distress, appears chronically ill, appropriately interactive. HEENT: Normocephalic, atraumatic. External ears without defect. Pupils equal, round, and reactive to light. Anicteric sclerae, moist conjunctivae, and no lid lag. Oropharynx free of erythema and cobble stoning with moist mucosa. Neck: Supple with full range of motion. No lymphadenopathy or thyromegaly. Cardiovascular: Regular rate and rhythm without murmurs, rubs, or gallops appreciated. Pulmonary: Clear to auscultation bilaterally with rhonchi now at left base. No wheezes. Normal respiratory effort with no use of accessory muscles. Abdomen: Bowel tones present. Soft, non-tender, protuberant. No hepatosplenomegaly or masses appreciated. Extremities: No clubbing, cyanosis, or edema. Abrasion to left kneecap from several ground level falls healing. Skin: Normal temperature, turgor, and texture; no rash, ulcers, or subcutaneous nodules appreciated. Neurological: Cranial nerves grossly intact. Several falls due to progressive weakness over the last several weeks. Psychiatric: Normal mood and affect. Alert and oriented to person, place, and time. Objective Labs Result Diagrams: 04/01/18 05:25 04/01/18 05:25 Labs: Laboratory Results - last 24 hr 03/31/18 04/01/18 04/01/18 17:25 05:25 05:25 WBC 3.8 L RBC 3.15 L Hgb 10.6 L Hct 30.3 L MCV 96.4 MCH 33.7 MCHC 35.0 RDW 14.2 Plt Count 102 L Neut % (Auto) 70.4 Lymph % (Auto) 17.1 L [place] % (Auto) 11.0 Eos % (Auto) 1.2 L Baso % (Auto) 0.3 Neut # (Auto) 2700 Sodium Potassium Chloride Carbon Dioxide BUN Creatinine Estimated GFR BUN/Creatinine Ratio Glucose Calcium Total Bilirubin AST ALT Alkaline Phosphatase Total Protein Albumin Globulin Albumin/Globulin Ratio Procalcitonin < 0.05 C. difficile Tox (PCR) Negative for c. diff 04/01/18 05:25 WBC RBC Hgb Hct MCV MCH MCHC RDW Plt Count Neut % (Auto) Lymph % (Auto) [place] % (Auto) Eos % (Auto) Baso % (Auto) Neut # (Auto) Sodium 141 Potassium 3.3 L Chloride 105 Carbon Dioxide 27 BUN 14 Creatinine 0.90 Estimated GFR > 60.0 BUN/Creatinine Ratio 15.6 Glucose 136 H Calcium 8.7 Total Bilirubin 0.8 AST 29 ALT 22 Alkaline Phosphatase 59 Total Protein 5.4 L Albumin 3.0 L Globulin 2.4 Albumin/Globulin Ratio 1.3 Procalcitonin C. 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 1. Acute left lower lobe community-acquired pneumonia, present on admission. Active. -Status post left lung radiation and prophylactic brain radiation, as well as , 4 rounds of chemotherapy with carboplatin and etoposide. -Patient presented with significant generalized progressive weakness with low -grade fever and nasal congestion but without cough or sputum production. Leukopenic and hypoxemic with oxygen saturations in the low 80s on admission. -Chest x-ray demonstrated left lower lobe consolidation. Discussed the patient with his oncologist, Dr. Ortiz, who recommended early CT chest with contrast to further delineate lung process which demonstrated left lower lobe pneumonia without progression of small cell carcinoma. -Ordered complete pneumonia workup including: Respiratory viral PCR negative , strep pneumoniae and Legionella urine antigens pending, sputum culture not obtained as not coughing and blood culture x2 no growth to date. -Continue ceftriaxone 2 g daily and azithromycin 500 mg daily today is last dose. 2. Acute on chronic generalized weakness, present on admission. Active. -Secondary to left lower lobe pneumonia. However, discussed the patient thoroughly with Dr. 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 3. 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 Presumed stable. -Continue Zytiga 1 g daily and prednisone 5 mg twice daily. 4. Pancytopenia, chronic, present on admission. Stable. -Likely multifactorial and related to her metastatic prostate cancer and small-cell cancer of the lung, as well as, multiple chemotherapies. -Continue to monitor blood counts daily. 5. Diabetes mellitus type 2, non-insulin using, present on admission. Presume stable. -Last hemoglobin A1c 7.1%. -Held metformin. -Ordered low-dose correctional scale insulin and ACHS blood glucose checks 6. Hyperlipidemia, present on admission. Stable. -Continue Atorvastatin 40 mg at bedtime. 7. Hypertension, present on admission. Stable. -Continue Carvedilol 6.25 mg twice daily. 8. Depression, present on admission. Stable. -Continue citalopram 10 mg daily. 9. BPH, present on admission. Presume stable. -Continue doxazosin 8 mg at bedtime. 10. Rheumatoid arthritis, present on admission. Stable. -Continue methotrexate 10 mg weekly on Monday and folic acid 0.8 mg daily. 11. Recent left arm thrombophlebitis status post PICC line removal and history of PE, present on admission. Presume stable. -Continue Xarelto 20 mg daily. 12. Glaucoma, chronic, present on admission. Stable. -Continue Timolol 1 dose left eye twice daily. Disposition: Patient likely to discharge in 1-2 days depending upon improvement in generalized weakness and continued treatment of pneumonia with titration of oxygen. Quality VTE Deep Vein Thrombosis/Pulmonary Embolism Present on Admission: No
--- NOTE | 2018-04-01 17:54 | RT ---
Brought patient one of our hospital CPAPs to use tonight since [employer] will not be coming to repair or replace patient's current home CPAP today. Fitted patient for small mask and assessed for comfort, adjusted straps, etc. Filled with sterile water and left at bedside. Patient would like to wait to go on until later. Will pass along to RT Karlee in report.
[2018-04-01] MEDS: DOXAZOSIN 4 MG TABLET 8 MG PO (20:03)
[2018-04-01] MEDS: ATORVASTATIN 20 MG TABLET 40 MG PO (20:03)
[2018-04-01] MEDS: POTASSIUM CHLORIDE 40 MEQ in SODIUM CHLORIDE 0.9% 500 ML 130 ML IV (21:27)
--- NOTE | 2018-04-01 22:11 | PC.NURSE ---
Addendum entered by Adriana Nava R.N. 04/01/18 23:31: at change of shift, pt's voiced concern that pt's leg was twitching. LLE slightly rotated inward and pt appears to be wiggling his own foot, does not appear to be any sporadic twitching. instrument repairer steam plant RN at bedside to witness and will resume monitoring of pt. Original Note: Addendum entered by Adriana Nava R.N. 04/01/18 22:13: BP at 194/95. pt's scheduled coreg held, doxyzosin given. about an hour after admin, recheck BP was 194/97 and HR of 51. pt remains asymptomatic. Dr. Altamirano notified. MD at bedside to assess pt and recheck VS which was then 107/70, HR 73. per MD, nursing staff to keep pt's HOB at 30 degrees during sleep tonight, and to notify on-call MD if BP remains consistently elevated with HR decreased for possible renal insufficiency. pt currently resting with CPAP in place. call light within reach. Original Note: SHIFT NOTE Ox4, pleasant and cooperative with care. lung sounds to LLL slightly diminished. Pt was able to be weaned to room air during the day shift. at approximately 1950, received call from ICU that pt's HR was in the 40's. pt was sleeping soundly without CPAP. asymptomatic of HR, BP elevated at 194/
[2018-04-02] VITALS (12 sets, daily range): BP systolic 122–208; BP diastolic 56–126; PULSE 48–74; RESP 14–19; TEMP 36.5–37.3; O2SAT 92–94
[2018-04-02] MEDS: CARVEDILOL 6.25 MG TABLET PO (06:07)
[2018-04-02 06:18] LABS: BUN Creatinine Ratio 13.3 (6-22); Blood Urea Nitrogen 12 mg/dL (9-20); Calcium 8.8 mg/dL (8.4-10.2); Carbon Dioxide 27 mmol/L (22-32); Chloride 107 mmol/L (98-107); Estimated Glomerular Filt Rate > 60.0 mL/min (>60); Glucose 125 mg/dL (80-110); HEMOLYSIS < 15 (0-50); Magnesium 1.8 mg/dL (1.6-2.3); Potassium 3.5 mmol/L (3.4-5.1); Sodium 142 mmol/L (137-145)
--- NOTE | 2018-04-02 06:44 | PC.NURSE ---
Spoke with Dr Aguilera at 0600 re patient's elevated BPs and Coreg that was held last evening 05/12 decreased HR (205/111, 47; 207/90 57; 208/126, 53). Dr. Aguilera advised to give the evening dose and monitor BP and HR. Pt is A and O x 4, other VS stable. His L foot twitched last noc and rotated inward involuntarily per patient, but this was not witnessed by staff. Pt believes the foot movement and his elevated BP are related. Pt denies pain, nausea and was able to sleep. Will monitor BP and HR p evening dose of Coreg 6.25 mg from 04/01/18, given this morning 04/02/18, per Dr. Aguilera.
[2018-04-02] MEDS: Abiraterone [Zytiga] 1,000 MG 1000 EACH PO (08:02)
--- NOTE | 2018-04-02 08:40 | PC.NURSE ---
Patient resting in chair
--- NOTE | 2018-04-02 10:09 | PT.IPTN ---
Current Diagnoses Other pneumonia, unspecified organism (03/29/18) Physical Therapy Treatment Note M2 PT-IP Current Condition Start: 03/30/18 16:51 Freq: NEEDED Status: Active Protocol: Document 03/31/18 10:50 RCC (Rec: 03/31/18 11:09 RCC [id number]) Physical Therapy Current Condition Current Condition Evaluation Date 03/30/18 Treatment Diagnosis GI bleed; PNA; generalized weakness Onset Date 03/29/18 Precautions Other Precautions O2 sat M3 PT-IP Subjective Start: 03/30/18 16:51 Freq: NEEDED Status: Active Protocol: Document 04/02/18 09:29 LJ (Rec: 04/02/18 10:09 LJ [id number]) Subjective Physical Therapy Visit Type Type Treatment Note Visit Start Time 09:29 Visit Stop Time 09:57 Total Visit Minutes 38 Number of SENIOR INFORMATION SECURITY ARCHITECT Visits 4 Physical Therapy Visit Comments Patient Comments Pt willing to work with PT. Therapy Pain Assessment Pain Present Pain Present Denied Pain M4 PT-IP Mobility and Gait Start: 03/30/18 16:51 Freq: NEEDED Status: Active Protocol: Document 04/02/18 09:29 LJ (Rec: 04/02/18 10:09 LJ [id number]) PT-Transfer Assessment Sit to and From Stand Sit to and from Stand Standby Assistance Use of Upper Extremities Equipment Transfer Assistive Device Gait Belt 4 Wheeled Walker Orthotic/Prosthetic Devices or Brace: No Transfers Transfer Destination Chair Transfer Ability Level of Assist Standby Assistance Gait Assessment Gait Gait Assistance Required: Contact Guard Assist 1 Person Assist Distance (Feet) 300 Assistive Devices Assistive Device Gait Belt Front Wheeled Walker Orthotic/Prosthetic Devices or Brace: No Gait Deviations General Gait Pattern Within Normal Limits Factors Limiting Gait Function Factors Limiting Gait Function Decreased Activity Tolerance Decreased Sensation Decreased Strength Poor Balance Comments Gait Comments Pt ambulated with safe technique checking brakes on walker and slowing down w/o cueing. Stair Climbing Assessment Evaluation Level of Assist On Stairs Standby Assistance Devices Stair Climbing Assistive Devices Left Railing Right Railing Technique/Endurance Stair Climbing Direction Ascend and Descend Stair Climbing Technique Step Over Step Stair Climbing Set # Repetitions (reps) 5 Comments Stair Climbing Comments Pt climbed stairs x 5 w/o fatigue. Demonstrated a safe technique and careful foot placement M5 PT-IP Objective Assessments Start: 03/30/18 16:51 Freq: NEEDED Status: Active Protocol: Document 03/30/18 14:34 AB (Rec: 03/30/18 17:09 AB [id number]) Orientation Orientation/Cognition Level of Alertness Alert Orientation Name Place Situation Safety Awareness Decreased Safety Awareness Gross Range of Motion Lower Extremity ROM Assessment Within Functional Limits Strength Lower Extremity Strength Assessment Bilaterally Impaired Hip 4-/5 Knee 3+/5 Sensation Assessment Sensation Gross Sensation Right LE Impaired Left LE Impaired Light Touch Impaired Proprioception (Position) Impaired Sensation Description Numbness Comments Sensation Comments stated that he only has ~ 10% sensation on BLE compared to UE sensation Muscle Tone Muscle Tone WNL Yes M6 PT-IP Treatment Start: 03/30/18 16:51 Freq: NEEDED Status: Active Protocol: Document 04/02/18 09:29 REZA (Rec: 04/02/18 10:09 LJ [id number]) Physical Therapy Treatment Education Education Provided Safety M7 PT-IP Assessment and Plan Start: 03/30/18 16:51 Freq: NEEDED Status: Active Protocol: Document 04/02/18 09:29 REZA (Rec: 04/02/18 10:09 REZA [id number]) PT Summary Assessment and Plan Summary Assessment Summary Pt ambulating safely with awareness of walker brakes, pacing and foot clearance. Safe on stairs with bilat rails. Safe for d/c home with assistance Goals Bed Mobility Goal Independent Transfer Goal Standby Assistance Front Wheeled Walker Gait Goal Standby Assistance Front Wheel Walker Gait Distance 150 Other Goals up/down 16 steps with bilateral rails CGA Days to Meet Goals 5 Frequency of Treatment Frequency Of Treatment Twice a Day Discharge Recommendations PT Discharge Recommendations Home with Assistance Home Health
[2018-04-02] MEDS: POTASSIUM CHLORIDE 20 MEQ TAB PO (10:30)
[2018-04-02] MEDS: CITALOPRAM 10 MG TABLET PO (10:30)
[2018-04-02] MEDS: FOLIC ACID 0.4 MG TABLET 0.8 MG PO (10:30)
[2018-04-02] MEDS: RIVAROXABAN 10 MG TABLET 20 MG PO (10:30)
[2018-04-02] MEDS: LACTOBACILLUS ACIDOPHILUS TABLET 1 EACH PO (10:30)
[2018-04-02] MEDS: predniSONE 5 MG TABLET PO (10:30)
[2018-04-02] MEDS: TIMOLOL 0.5% OPHTH 1 DROPS EYE-LEFT (10:30)
--- NOTE | 2018-04-02 10:42 | RT ---
Will call and speak with Deidre Ring about getting patient's home CPAP replaced today. Waiting to see if patient will be going home or staying here so they know where to go to see patient. Talk in care management meeting of patient potentially going home.
--- NOTE | 2018-04-02 11:08 | CM.DPC ---
Referral faxed to [facility] per Kristy
--- NOTE | 2018-04-02 11:12 | CM.DPC ---
DCP Cont: Patient is to be discharged home today. Spoke with Dr. Altamirano, hospitalist. She stated that she was able to talk them into getting home health for physical therapy. She also is ok with Occupational therapy as well. She was originally going to ask for nursing, for an old wound on his hip. Let her know that it would be a few days before they could get out to home. She then decided that he would not need nursing, for he will be following up in the clinic. Spoke to patient's . She stated she did not care what agency to use. Called [facility] and spoke to Em. Confirmed that they will accept his insurance. She stated that after talking to therapy team, they can see him on . Went ahead and faxed over face to face and orders. P: Patient will be discharging home today with [facility] for physical and occupational therapy. Mireya Lobo RN/Environmental Field Professional
[2018-04-02] MEDS: CEFTRIAXONE 2 GM/50 ML FROZ.PIGGY IV (12:43)
--- NOTE | 2018-04-02 14:20 | PC.NURSE ---
Discharge pt denies pain. States he took all belongings with him. Meds obtained from pharmacy and returned to pt. d/c instructions provided to pt and SO. Rx called into [facility] per pt request. notified of f/u apts with PCP and Dermatology. Aware to contact MD with any additional question or concerns. PT/OT set up, pt to receive call day prior to arrival, he is aware. pt left in w/c with [employer] escort.
--- NOTE | 2018-04-02 20:22 | P.DS_ITS ---
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 The patient and his significant other report that he has been experiencing progressive weakness over the last 3 weeks with with the most acute worsening over the last 2 days. He has fallen several times today due to weakness with a small abrasion over left kneecap due to ground level fall. He reports that he has had difficulty eating due to early satiety with approximately 2 tsp of food consumed which has caused his appetite to be decreased overall with very little intake over the last several weeks. He reports low-grade fevers up to 100.4 F without chills. He endorses a headache yesterday which has now resolved. He denies vision changes, rhinitis, sore throat, worsening shortness of breath from baseline (although he was significantly hypoxemic upon arrival to the ED), chest pain, or abdominal pain. He does endorse nausea and which he had 1 episode of emesis yesterday. He also endorses chronic constipation x2 weeks which was relieved recently with milk of magnesia and MiraLax. Several days ago, he had some abdominal pain that was initially left lower quadrant and he was started on Cipro for which he has received 2 days worth. He also reported black stool x1 which was Hemoccult negative. He continues to have chronic dysuria and frequency but no more than usual. He does endorse new urgency with urination. Patient is currently under treatment for metastatic prostate cancer and recently completed chemotherapy for small cell carcinoma. Of note, he is on Xarelto for recent PICC line thrombus of left arm and has history of previous PE. Discharge Providers Date of admission: 03/29/18 15:23 Primary care physician: Gurdeep Cameron MD Consults: 03/29/18 18:45 Consult to Speech Therapy Evaluate & Treat Comment: possible silent aspiration please evaluate Physician Instructions: Evaluate and treat 03/30/18 10:52 Consult to Occupational Therapy Evaluate & Treat Comment: Physician Instructions: Evaluate and treat Consult to Physical Therapy Evaluate & Treat Comment: Physician Instructions: Evaluate and Treat 04/02/18 11:02 Consult to Home Health Routine Comment: Reason For Exam: Physical and Occupational Therapy Discharge provider: Christel Altamirano DO Discharge Date: 04/02/18 Summary Discharge Diagnosis: 1. Acute left lower lobe community-acquired pneumonia, present on admission. Resolving. 2. Acute on chronic generalized weakness, present on admission. Resolved. 3. 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 Presumed stable. 4. Pancytopenia, chronic, present on admission. Stable. 5. Diabetes mellitus type 2, non-insulin using, present on admission. Presume stable. 6. Hyperlipidemia, present on admission. Stable. 7. Hypertension, present on admission. Stable. 8. Depression, present on admission. Stable. 9. BPH, present on admission. Presume stable. 10. Rheumatoid arthritis, present on admission. Stable. 11. Recent left arm thrombophlebitis status post PICC line removal and history of PE, present on admission. Presume stable. 12. Glaucoma, chronic, present on admission. Stable. Hospital Course: 1. Acute left lower lobe community-acquired pneumonia, present on admission. Resolving. -Status post left lung radiation and prophylactic brain radiation, as well as , 4 rounds of chemotherapy with carboplatin and etoposide. -Patient presented with significant generalized progressive weakness with low -grade fever and nasal congestion but without cough or sputum production. Leukopenic and hypoxemic with oxygen saturations in the low 80's on admission. -Chest x-ray demonstrated left lower lobe consolidation. Discussed the patient with his oncologist, Dr. Ortiz, who recommended CT chest with contrast to further delineate lung process which demonstrated left lower lobe pneumonia without progression of small cell carcinoma. -Ordered complete pneumonia workup including: Respiratory viral PCR negative , strep pneumoniae and Legionella urine antigens pending, sputum culture not obtained as not coughing and blood culture x2 no growth to date. -Continued ceftriaxone 2 g daily for 5 days and azithromycin 500 mg daily for 3 days. Discharged on augmentin to finish 7 day course. 2. Acute on chronic generalized weakness, present on admission. Resolved. -Secondary to left lower lobe pneumonia. However, discussed the patient thoroughly with Dr. Ortiz of Oncology who relayed that this may be related to HOME HEALTH NURSE LICENSED PRACTICAL Radiation for which should be treated with steroids, however, weakness is vastly improving with PT and treatment of pneumonia. 3. 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 Presumed stable. -Continued Zytiga 1 g daily and prednisone 5 mg twice daily. 4. Pancytopenia, chronic, present on admission. Stable. -Likely multifactorial and related to his metastatic prostate cancer and small-cell cancer of the lung, as well as, multiple chemotherapies. -Continued to monitor blood counts daily. 5. Diabetes mellitus type 2, non-insulin using, present on admission. Presume stable. -Admission hemoglobin A1c 7.1%. -Held metformin until discharge. -Continued low-dose correctional scale insulin and ACHS blood glucose checks 6. Hyperlipidemia, present on admission. Stable. -Continued Atorvastatin 40 mg at bedtime. 7. Hypertension, present on admission. Stable. -Continued Carvedilol 6.25 mg twice daily. 8. Depression, present on admission. Stable. -Continued citalopram 10 mg daily. 9. BPH, present on admission. Presume stable. -Continued doxazosin 8 mg at bedtime. 10. Rheumatoid arthritis, present on admission. Stable. -Continued methotrexate 10 mg weekly on Monday and folic acid 0.8 mg daily. 11. Recent left arm thrombophlebitis status post PICC line removal and history of PE, present on admission. Presume stable. -Continued Xarelto 20 mg daily. 12. Glaucoma, chronic, present on admission. Stable. -Continued Timolol 1 dose left eye twice daily. 13. Obstructive sleep apnea on CPAP, present on admission. Stable. -Initially patient was hypoxemic secondary to pneumonia and required oxygen 4 L bled into his CPAP. As pneumonia resolved patient in was titrated off of supplemental oxygen and needed oxygen with CPAP use. Status at Discharge Functional status at discharge: uses cane/walker Exam Vital Signs (past 8 hours): Oxygen Delivery Method Room Air Oxygen Flow Rate 2 Narrative Exam Narrative: General: Elderly gentleman sitting in bed and in no acute distress, appears chronically ill, appropriately interactive. HEENT: Normocephalic, atraumatic. External ears without defect. Pupils equal, round, and reactive to light. Anicteric sclerae, moist conjunctivae, and no lid lag. Oropharynx free of erythema and cobble stoning with moist mucosa. Neck: Supple with full range of motion. No lymphadenopathy or thyromegaly. Cardiovascular: Regular rate and rhythm without murmurs, rubs, or gallops appreciated. Pulmonary: Clear to auscultation bilaterally with rhonchi now at left base. No wheezes. Normal respiratory effort with no use of accessory muscles. Abdomen: Bowel tones present. Soft, non-tender, protuberant. No hepatosplenomegaly or masses appreciated. Wound on left side from previous cyst removal healing slowly without purulence and granulation tissue present. Extremities: No clubbing, cyanosis, or edema. Abrasion to left kneecap from several ground level falls healing. Skin: Normal temperature, turgor, and texture; no rash, ulcers, or subcutaneous nodules appreciated. Neurological: Cranial nerves grossly intact. Several falls due to progressive weakness over the last several weeks. Psychiatric: Normal mood and affect. Alert and oriented to person, place, and time. Objective Labs Result Diagrams: 04/01/18 05:25 04/02/18 05:30 Labs: Laboratory Results - last 24 hr 04/02/18 05:30 Sodium 142 Potassium 3.5 Chloride 107 Carbon Dioxide 27 BUN 12 Creatinine 0.90 Estimated GFR > 60.0 BUN/Creatinine Ratio 13.3 Glucose 125 H Calcium 8.8 Magnesium 1.8 Discharge Plan Discharge Plan Patient Disposition: Home Health Service Transfer to: Home Health, Other Discharge comment: You are being discharged home with home health for physical therapy and occupational therapy. Please follow up with your PCP, Dr. Cameron, in 1 week for hospital follow-up and blood pressure check. If you are unable to get into a doctor before your scheduled appointment on the please have a nursing visit for blood pressure check. Please follow up with your rn procedure, Dr. Thurman, regarding your wound. Discharge Med Rec/Prescriptions Prescriptions: New amoxicillin-pot clavulanate [Augmentin] 500-125 mg tablet 1 tab PO BID Qty: 6 RF: 0 Continue atorvastatin [Lipitor] 40 MG tablet 40 mg PO BEDTIME Qty: 0 RF: 0 magnesium 200 MG tablet 200 mg PO Q DAY Qty: 0 RF: 0 cholecalciferol (vitamin D3) [Vitamin D3] 2,000 UNIT capsule 2,000 iu PO QDAY Qty: 0 RF: 0 multivitamin [Multiple Vitamins] 1 EACH tablet 1 tab PO QDAY Qty: 0 RF: 0 calcium carbonate 600 MG tablet 1,200 mg PO Q DAY Qty: 0 RF: 0 ascorbic acid (vitamin C) 500 MG tablet 1,500 mg PO QDAY Qty: 0 RF: 0 potassium chloride [K-Tab] 20 mEq Tablet Extended Release 20 meq PO DAILY Qty: 30 RF: 0 methotrexate sodium 2.5 mg Tablet 10 mg PO QWEEK RF: 0 metformin 500 mg Tablet 500 mg PO BID RF: 0 rivaroxaban [Xarelto] 20 mg Tablet 20 mg PO DAILY Qty: 90 RF: 0 nitroglycerin [Nitrostat] 0.4 mg Tablet, Sublingual 0.4 mg Sublingual [id number] PRN (Reason: Chest Pain) Qty: 30 RF: 0 citalopram 10 mg tablet 10 mg PO DAILY RF: 0 prednisone 5 mg tablet 5 mg PO BID RF: 0 doxazosin 8 mg tablet 8 mg PO QPM RF: 0 folic acid 400 mcg Tablet 0.8 mg PO DAILY RF: 0 abiraterone [Zytiga] 250 MG tablet 1,000 mg PO DAILY RF: 0 carvedilol 6.25 mg tablet 6.25 mg PO BID RF: 0 timolol 0.5 % Drops 1 dose EYE-LEFT BID RF: 0 mupirocin calcium [Bactroban] 2 % Cream 1 applic TOPICAL BEDTIME RF: 0 Follow up/Referrals: Karlee Thurman MD [Physician] - 04/04/18 8:00 am (Wound check ) Gurdeep Cameron MD [Primary Care Provider] - 04/09/18 8:00 am (Hospital follow- up for left lower lobe community-acquired pneumonia, blood pressure check, and wound check.) Provider Discharge Instructions Diet: Low-fat, Low-sodium and Low-cholesterol Activity: Please use a walker at all times with ambulation. Skin/Wound/Dressing Care Report to your healthcare provider any signs of infection, such as:: chills, fever, night sweats, increased pain, unusual drainage and unusual redness Other wound treatment: Continue to apply Bactroban to your wound as instructed by Dr. Thurman. Please follow up with Dr. Thurman by the end of the week. A wound culture was performed and pending. Visit Report/Discharge Packet Instructions: DI for Pneumonia -- Adult, Amoxicillin and Clavulanic Acid Visit Report Forms: Stroke Signs & Symptoms Discharge Data Primary Care Provider: Gurdeep Cameron V Attending Provider: Aisha Helms Admit Date/Time: 03/29/18 15:23 Discharges patient from system. Discharge Date/Time: 04/02/18 14:10 Quality VTE Deep Vein Thrombosis/Pulmonary Embolism Present on Admission: No
[2018-04-04 13:29] LABS: Anti-Streptolysin O Antibody < 50 IU/mL (< 200)
== END 2018-04-02 14:10 | disposition home health service (06) | DRG 193 ==
LOC: ED 12:09 → AC 15:24
PROVIDERS: Internal Medicine; Admitting Provider Internal Medicine; Emergency Provider Emergency Medicine; PCP Internal Medicine; Visit Provider Internal Medicine
DX: J18.8 Other pneumonia, unspecified organism (principal); D61.810 Antineoplastic chemotherapy induced pancytopenia; C79.51 Secondary malignant neoplasm of bone; C34.92 Malignant neoplasm of unspecified part of left bronchus or lung; D61.818 Other pancytopenia; C61 Malignant neoplasm of prostate; R09.02 Hypoxemia; T45.1X5A Adverse effect of antineoplastic and immunosuppressive drugs, initial encounter; I10 Essential (primary) hypertension; E78.5 Hyperlipidemia, unspecified; I25.10 Atherosclerotic heart disease of native coronary artery without angina pectoris; E11.9 Type 2 diabetes mellitus without complications; M06.9 Rheumatoid arthritis, unspecified; F32.9 Major depressive disorder, single episode, unspecified; Z87.891 Personal history of nicotine dependence; H40.9 Unspecified glaucoma; N40.1 Benign prostatic hyperplasia with lower urinary tract symptoms; R39.15 Urgency of urination; G47.33 Obstructive sleep apnea (adult) (pediatric); Z99.81 Dependence on supplemental oxygen
CPT/HCPCS: 36415; 36591; 71045; 71260; 74177; 74230; 80048; 80053; 81001; 82962; 83605; 83690; 83735; 84145; 85025; 86060; 87040; 87070; 87075; 87077; 87147; 87186; 87205; 87449; 87493; 87633; 92610; 92611; 93005; 94660; 94760; 94762; 96361; 96365; 96375; 97116; 97162; 97530; 99283; 99285; J0696; J2405; J3480; J8610; Q9967

== ENCOUNTER 2018-04-17 11:36 | Inpatient (IN) | payer MEDICARE, OTHER, SELFPAY ==
[2018-03-29 15:25] VITALS: BMI 31.9
[2018-04-17] VITALS (9 sets, daily range): BP systolic 103–178; BP diastolic 68–108; PULSE 65–80; RESP 15–17; TEMP 36.5–36.9; O2SAT 96–98; BMI 30.7; BMI 31.1
--- NOTE | 2018-04-17 | DI.MRI.S_ITS ---
PROCEDURE: MR HEAD/BRAIN WO/W CON INDICATIONS: r/o mets TECHNIQUE: Noncontrast axial T1 spin echo, axial T2 fast spin echo, sagittal and axial FLAIR, coronal T2 fast spin echo, axial gradient echo, axial diffusion and ADC through the brain. After the administration of contrast, axial and coronal T1 spin echo with fat saturation through the brain. COMPARISON: Located Within [facility], CT, CT HEAD/BRAIN WO CON, 04/17/2018, 13:09. Located Within [facility], MR, MR HEAD/BRAIN WO/W CON, 01/12/2018, 8:48. FINDINGS: Image quality: Excellent. CSF spaces: Basal cisterns are patent. No extra-axial fluid collections. Ventricles are normal in size and shape. Brain: No midline shift. No intracranial bleeds or masses. No abnormal intracranial enhancement. There is cerebral volume loss for age. There is periventricular white matter chronic small vessel ischemic change. The brainstem appears normal. Diffusion-weighted images demonstrate no acute ischemic insults. No chronic ischemic insults. Normal intravascular flow voids are present. Skull and face: Calvarial marrow is normal in signal. Orbits appear normal. Sinuses: Right maxillary sinus retention cyst. Sinuses and mastoids otherwise appear clear. IMPRESSION: 1. No evidence of metastatic disease. 2. Volume loss and small vessel ischemic disease. Dictated by: Lianna Bowen M.D. on 04/17/2018 at 18:41 Approved by: Lianna Bowen M.D. on 04/17/2018 at 18:43
[2018-04-17 12:06] LABS: Add Manual Diff / Slide Review NO; Basophils Percent Auto 0.3 % (0-2); Hematocrit 40.2 % (41-53); Hemoglobin 13.5 g/dL (13.5-17.5); Mean Corpuscular HGB Conc 33.6 % (30-36); Mean Corpuscular Hemoglobin 33.3 PG (26-34); Mean Corpuscular Volume 99.2 fL (80-100); Monocytes Percent Auto 6.2 % (3-14); Neutrophils Absolute Auto 7700 /uL (1500-7000); Neutrophils Percent Auto 87.5 % (50-75); Platelet Count 85 X10^3/uL (150-400); Red Blood Cell Count 4.05 X10^6/uL (4.5-5.9); Red Cell Distribution Width 15.2 % (11.6-14.8); White Blood Cell Count 8.8 X10^3/uL (4.5-11.0)
[2018-04-17 12:16] LABS: Alanine Aminotransferase 24 IU/L (21-72); Albumin 3.6 g/dL (3.5-5.0); Albumin Globulin Ratio 1.6 (1.0-2.8); Alkaline Phosphatase 49 U/L (38-126); Aspartate Aminotransferase 28 IU/L (17-59); Blood Urea Nitrogen 45 mg/dL (9-20); Calcium 9.4 mg/dL (8.4-10.2); Carbon Dioxide 23 mmol/L (22-32); Chloride 99 mmol/L (98-107); Creatine Kinase 24 U/L (55-170); Estimated Glomerular Filt Rate > 60.0 mL/min (>60); Globulin 2.2 g/dL (1.7-4.1); Glucose 290 mg/dL (80-110); HEMOLYSIS < 15 (0-50); Potassium 4.5 mmol/L (3.4-5.1); Sodium 136 mmol/L (137-145); Total Protein 5.8 g/dL (6.3-8.2)
--- NOTE | 2018-04-17 12:51 | ED.SYNCOPE ---
HPI - Syncope <Linda Shah PA-C - Last Filed: 04/17/18 21:55> General Chief Complaint: Syncope Stated Complaint: Seizures Time Seen by Provider: 04/17/18 12:32 Source: patient and family Mode of arrival: EMS Limitations: no limitations History of Present Illness HPI narrative: This 70-year-old male comes in today due to recurrent syncopal or seizure like episodes. He and his significant other states that he has had these off and on since February, after he underwent prophylactic radiation therapy to the brain due to his history of small cell lung cancer and prostate adenocarcinoma. Previously, these might happen once daily, where he would get weak all over and collapse. He describes a sensation of knowing he needs to get to the floor. His partner basically follows him all over the house to make sure that this does not happen. She states that when it does, she is often able to support him and leaned against the wall until the episode passes, 30-45 seconds. During these episodes, she states that he seems to shake all over. He has not had any loss of bowel or bladder control with these episodes. Typically, he is not particularly confused afterwards though he has had a couple of times where he has seemed a bit disoriented briefly recently. She describes him as suddenly becoming ?like a dishrag when this occurs. Episodes have been increasing, and apparently he had 2 episodes of this while in his PCPs office yesterday which were observed. Today, he had 4 of these episodes while therapy was in the home, and while he was sitting in a chair, which is less typical. He states he is feeling at his baseline now. Episodes are not associated with any headache, vision change, nausea, chest pain, palpitation or dyspnea. Patient does have a history of labile blood pressures and his partner states they could be anywhere between 102-200 at home. She states his initial BP reading was 89 systolic today though she thinks inaccurate (better when rechecked). Patient states he has been eating and drinking normally for him, which is not much. He has had some fluid. Again he states he is feeling at his baseline now. He was discharged from this hospital 2 weeks ago after treatment for pneumonia. Related Data Home Medications Medication Instructions Recorded Confirmed atorvastatin [Lipitor] 40 mg PO BEDTIME #0 03/21/17 04/17/18 ascorbic acid (vitamin C) 1,500 mg PO DAILY #0 06/01/17 04/17/18 calcium carbonate 1,200 mg PO Q DAY #0 06/01/17 04/17/18 cholecalciferol (vitamin D3) 2,000 iu PO QDAY #0 06/01/17 04/17/18 [Vitamin D3] magnesium 200 mg PO Q DAY #0 06/01/17 04/17/18 multivitamin [Multiple Vitamins] 1 tab PO QDAY #0 06/01/17 04/17/18 methotrexate sodium 10 mg PO QWEEK 09/12/17 04/17/18 metformin 500 mg PO BID 01/02/18 04/17/18 carvedilol 6.25 mg PO BID 02/22/18 04/17/18 citalopram 10 mg PO BEDTIME 02/22/18 04/17/18 doxazosin 8 mg PO BEDTIME 02/22/18 04/17/18 folic acid 0.8 mg PO DAILY 02/22/18 04/17/18 mupirocin calcium [Bactroban] 1 applic TOPICAL BEDTIME 03/29/18 04/17/18 timolol 1 dose EYE-LEFT BID 03/29/18 04/17/18 hydrocortisone 40 mg PO BID 04/11/18 04/17/18 Probiotic 1 cap PO BID 04/17/18 04/17/18 omeprazole 20 mg PO DAILY 04/17/18 04/17/18 prednisone 40 mg PO BID 04/17/18 04/17/18 Previous Rx's Medication Instructions Recorded nitroglycerin [Nitrostat] 0.4 mg SUBLINGUAL [id number] PRN #30 10/01/17 tab rivaroxaban [Xarelto] 20 mg PO DAILY #90 tab 02/07/18 Allergies Allergy/AdvReac Type Severity Reaction Status Date / Time chlorthalidone Allergy Verified 04/17/18 11:57 hydroxychloroquine Allergy Verified 04/17/18 11:57 [From Plaquenil] niacin [NIACIN] AdvReac Severe Hypotension Verified 04/17/18 11:57 amlodipine [AMLODIPINE] AdvReac Unknown Verified 04/17/18 11:57 gemfibrozil [GEMFIBROZIL] AdvReac Unknown Verified 04/17/18 11:57 hydrochlorothiazide AdvReac Unknown Verified 04/17/18 11:57 [HYDROCHLOROTHIAZIDE] lisinopril [LISINOPRIL] AdvReac Unknown Verified 04/17/18 11:57 Review of Systems <Linda Shah PA-C - Last Filed: 04/17/18 21:55> Review of Systems All systems reviewed & are unremarkable except as noted in HPI and below Exam <Linda Shah PA-C - Last Filed: 04/17/18 21:55> Narrative Exam Narrative: GENERAL APPEARANCE: Patient sitting comfortably, appears somewhat frail, in NAD HEENT: PERRL, EOMI, no nystagmus, normal oropharynx NECK: Supple, no masses LUNGS: Generalized coarse breath sounds with perhaps some faint bibasilar crackles, no wheezes, speaks in complete sentences HEART: Rate and rhythm regular without murmur, normal S1 and S2, no S3 or S4. EXTREMITIES: No edema or calf tenderness ABDOMEN: Soft, NT, ND, + BS x 4 quadrants NEUROLOGIC: Alert and oriented, normal speech, and coordination. MUSCULOSKELETAL: He is able to move from supine to sit unassisted. Strength throughout the extremities 4+/5 symmetrically Initial Vital Signs Initial Vital Signs: Vital Signs Temperature 98.4 F 04/17/18 11:57 Pulse Rate 80 04/17/18 11:57 Respiratory Rate 16 04/17/18 11:57 Blood Pressure 103/68 04/17/18 11:57 Pulse Oximetry 96 04/17/18 11:57 <Annamaria Jeter DO - Last Filed: 04/18/18 08:21> Initial Vital Signs Initial Vital Signs: Vital Signs Temperature 98.4 F 04/17/18 11:57 Pulse Rate 80 04/17/18 11:57 Respiratory Rate 16 04/17/18 11:57 Blood Pressure 103/68 04/17/18 11:57 Pulse Oximetry 96 04/17/18 11:57 Course <SHIVA Patiño Last Filed: 04/17/18 21:55> Additional Information: I have spoken with Dr. Helms, on-call hospitalist, who is familiar with patient from previous admission. Will admit given his worsening pneumonia since discharge along with increase in his syncopal or seizure episodes (not clear as these were not observed here in the ED). He does have a minimally elevated troponin consistent with his previous 1, no acute EKG changes. Repeat was ordered. He has no signs or symptoms of cardiac source of these episodes. Dr. Helms is agreeable with admission to telemetry Orders Ordered: ED Orders 04/18/18 04:58 B Type Natriuretic Peptide Routine Complete Blood Count AUTO DIFF Routine Comprehensive Metabolic Panel Routine Troponin I Routine Acetaminophen (Tylenol) 650 mg PO Q6HR PRN PRN Reason: As Needed for Fever/Mild Pain Hydrocodone Bitart/Acetaminophen (Matthews 5/325) 1 tab PO Q4HR PRN PRN Reason: Pain, Moderate (4-6) Atorvastatin Calcium (Lipitor) 40 mg PO BEDTIME [facility] Last Admin: 04/17/18 20:21 Dose: 40 mg Bisacodyl (Dulcolax) 10 mg [place] DAILY PRN PRN Reason: Constipation Calcium Carbonate (Calcium) 1,200 mg PO DAILY [facility] Calcium Carbonate (Tums) 1,000 mg PO Q4HR PRN PRN Reason: Dyspepsia Carvedilol (Coreg) 6.25 mg PO BID [facility] Last Admin: 04/17/18 20:22 Dose: 6.25 mg Citalopram Hydrobromide (Celexa) 10 mg PO DAILY [facility] Dextrose (D50w) 25 gm IV PRN PRN; Protocol PRN Reason: Hypoglycemia Docusate Sodium (Colace) 100 mg PO BID [facility] Last Admin: 04/17/18 20:17 Dose: Not Given Doxazosin Mesylate (Cardura) 8 mg PO BEDTIME [facility] Last Admin: 04/17/18 20:29 Dose: 8 mg Folic Acid (Folic Acid) 0.8 mg PO DAILY [facility] Hydromorphone HCl (Dilaudid) 0.5 mg IV Q6HR PRN PRN Reason: Pain, Moderate (4-6) Cefepime HCl 2 gm/ Sodium (Chloride) 100 mls @ 200 mls/hr IV Q12H [facility] Last Admin: 04/18/18 06:24 Dose: 200 mls/hr Infusion: 04/17/18 20:46 Dose: 200 mls/hr Admin: 04/17/18 20:16 Dose: 200 mls/hr Ibuprofen (Advil) 600 mg PO Q6HR PRN PRN Reason: As Needed for Fever/Mild Pain Insulin Aspart (Novolog Flexpen) 0 unit SUBCUT ACHS [facility]; Protocol Last Admin: 04/17/18 21:06 Dose: Not Given Metformin HCl (Glucophage) 500 mg PO BIDWM [facility] Last Admin: 04/17/18 21:02 Dose: 500 mg Methotrexate (Methotrexate) 10 mg PO WEEKLY [facility] Multivitamins (Tab-A-Tracy) 1 tab PO DAILY [facility] Nitroglycerin (Nitrostat) 0.4 mg SL [id number] PRN PRN Reason: Chest Pain Ondansetron HCl (Zofran) 4 mg IV Q8HR PRN PRN Reason: Nausea And Vomiting Pantoprazole Sodium (Protonix) 20 mg PO 0600 [facility] Prednisone (Deltasone) 40 mg PO BID [facility] Last Admin: 04/17/18 20:29 Dose: 40 mg [facility] Timolol Maleate (Timoptic 0.25% Oph) 1 drops EYE-LEFT DAILY [facility] Vitamin D (Vitamin D3) 2,000 unit PO DAILY [facility] Discontinued Medications Sodium Chloride (Normal Saline 0.9%) 1,000 mls @ 1,000 mls/hr IV BOLUS ONE Stop: 04/17/18 12:58 Last Admin: 04/17/18 13:32 Dose: Sodium Chloride (Normal Saline 0.9%) 1,000 mls @ 1,000 mls/hr IV BOLUS ONE Stop: 04/17/18 14:27 Last Infusion: 04/17/18 14:33 Dose: 0 mls/hr Admin: 04/17/18 13:25 Dose: 1,000 mls/hr Dextrose/Sodium Chloride (Dextrose 5%-0.9% Ns) 1,000 mls @ 100 mls/hr IV CONT [facility] Last Admin: 04/17/18 17:26 Dose: 100 mls/hr Piperacillin/Tazobactam/Dextrose (Zosyn) 3.375 gm in 50 mls @ 100 mls/hr IV Q6H [facility] Last Admin: 04/17/18 18:32 Dose: Levofloxacin (Levaquin) 750 mg in 150 mls @ 100 mls/hr IV NOW ONE Stop: 04/17/18 19:06 Last Admin: 04/17/18 18:31 Dose: 100 mls/hr Vital Signs - 8 hr 04/18/18 00:40 04/18/18 04:48 Temperature 97.5 F L Pulse Rate 77 Respiratory Rate 20 Blood Pressure 127/92 H Pulse Oximetry 98 99 <Annamaria Mijares Steffany, DO - Last Filed: 04/18/18 08:21> Orders Ordered: ED Orders 04/18/18 04:58 B Type Natriuretic Peptide Routine Complete Blood Count AUTO DIFF Routine Comprehensive Metabolic Panel Routine Troponin I Routine Acetaminophen (Tylenol) 650 mg PO Q6HR PRN PRN Reason: As Needed for Fever/Mild Pain Hydrocodone Bitart/Acetaminophen (Matthews 5/325) 1 tab PO Q4HR PRN PRN Reason: Pain, Moderate (4-6) Atorvastatin Calcium (Lipitor) 40 mg PO BEDTIME [facility] Last Admin: 04/17/18 20:21 Dose: 40 mg Bisacodyl (Dulcolax) 10 mg [place] DAILY PRN PRN Reason: Constipation Calcium Carbonate (Calcium) 1,200 mg PO DAILY [facility] Calcium Carbonate (Tums) 1,000 mg PO Q4HR PRN PRN Reason: Dyspepsia Carvedilol (Coreg) 6.25 mg PO BID [facility] Last Admin: 04/17/18 20:22 Dose: 6.25 mg Citalopram Hydrobromide (Celexa) 10 mg PO DAILY [facility] Dextrose (D50w) 25 gm IV PRN PRN; Protocol PRN Reason: Hypoglycemia Docusate Sodium (Colace) 100 mg PO BID [facility] Last Admin: 04/17/18 20:17 Dose: Not Given Doxazosin Mesylate (Cardura) 8 mg PO BEDTIME [facility] Last Admin: 04/17/18 20:29 Dose: 8 mg Folic Acid (Folic Acid) 0.8 mg PO DAILY [facility] Hydromorphone HCl (Dilaudid) 0.5 mg IV Q6HR PRN PRN Reason: Pain, Moderate (4-6) Cefepime HCl 2 gm/ Sodium (Chloride) 100 mls @ 200 mls/hr IV Q12H [facility] Last Admin: 04/18/18 06:24 Dose: 200 mls/hr Infusion: 04/17/18 20:46 Dose: 200 mls/hr Admin: 04/17/18 20:16 Dose: 200 mls/hr Ibuprofen (Advil) 600 mg PO Q6HR PRN PRN Reason: As Needed for Fever/Mild Pain Insulin Aspart (Novolog Flexpen) 0 unit SUBCUT ACHS [facility]; Protocol Last Admin: 04/17/18 21:06 Dose: Not Given Metformin HCl (Glucophage) 500 mg PO BIDWM [facility] Last Admin: 04/17/18 21:02 Dose: 500 mg Methotrexate (Methotrexate) 10 mg PO WEEKLY [facility] Multivitamins (Tab-A-Tracy) 1 tab PO DAILY [facility] Nitroglycerin (Nitrostat) 0.4 mg SL [id number] PRN PRN Reason: Chest Pain Ondansetron HCl (Zofran) 4 mg IV Q8HR PRN PRN Reason: Nausea And Vomiting Pantoprazole Sodium (Protonix) 20 mg PO 0600 [facility] Prednisone (Deltasone) 40 mg PO BID [facility] Last Admin: 04/17/18 20:29 Dose: 40 mg Rivaroxaban (Xarelto) 20 mg PO DAILYCC [facility] Timolol Maleate (Timoptic 0.25% Ophth) 1 drops EYE-LEFT DAILY [facility] Vitamin D (Vitamin D3) 2,000 unit PO DAILY [facility] Discontinued Medications Sodium Chloride (Normal Saline 0.9%) 1,000 mls @ 1,000 mls/hr IV BOLUS ONE Stop: 04/17/18 12:58 Last Admin: 04/17/18 13:32 Dose: Sodium Chloride (Normal Saline 0.9%) 1,000 mls @ 1,000 mls/hr IV BOLUS ONE Stop: 04/17/18 14:27 Last Infusion: 04/17/18 14:33 Dose: 0 mls/hr Admin: 04/17/18 13:25 Dose: 1,000 mls/hr Dextrose/Sodium Chloride (Dextrose 5%-0.9% Ns) 1,000 mls @ 100 mls/hr IV CONT [facility] Last Admin: 04/17/18 17:26 Dose: 100 mls/hr Piperacillin/Tazobactam/Dextrose (Zosyn) 3.375 gm in 50 mls @ 100 mls/hr IV Q6H [facility] Last Admin: 04/17/18 18:32 Dose: Levofloxacin (Levaquin) 750 mg in 150 mls @ 100 mls/hr IV NOW ONE Stop: 04/17/18 19:06 Last Admin: 04/17/18 18:31 Dose: 100 mls/hr Vital Signs - 8 hr 04/18/18 00:40 04/18/18 04:48 Temperature 97.5 F L Pulse Rate 77 Respiratory Rate 20 Blood Pressure 127/92 H Pulse Oximetry 98 99 MDM - Syncope <Linda Shah PA-C - Last Filed: 04/17/18 21:55> Lab Data Attestation: I reviewed the patient's lab results. Result diagrams: 04/18/18 04:58 04/18/18 04:58 Lab Results 04/17/18 04/17/18 04/17/18 Range/Units 11:55 11:55 11:55 WBC 8.8 (4.5-11.0) X10^3/uL RBC 4.05 L (4.5-5.9) X10^6/uL Hgb 13.5 (13.5-17.5) g/dL Hct 40.2 L (41-53) % MCV 99.2 (80-100) fL MCH 33.3 (26-34) PG MCHC 33.6 (30-36) % RDW 15.2 H (11.6-14.8) % Plt Count 85 L (150-400) X10^3/uL Neut % (Auto) 87.5 H (50-75) % Lymph % (Auto) 6.0 L (25-40) % [place] % (Auto) 6.2 (3-14) % Eos % (Auto) 0.0 L (2-4) % Baso % (Auto) 0.3 (0-2) % Neut # (Auto) 7700 H (3440-3046) /uL Total Counted Seg Neutrophils % (38-70) % Band Neutrophils % (3-7) % Lymphocytes % (Manual) (25-45) % Monocytes % (Manual) (2-11) % Neutrophils # (Manual) (5414-9704) /uL Nucleated RBCs ( - 0) #/Diff RBC Morphology Poikilocytosis Sodium 136 L (137-145) mmol/L Potassium 4.5 (3.4-5.1) mmol/L Chloride 99 (98-107) mmol/L Carbon Dioxide 23 (22-32) mmol/L BUN 45 H (9-20) mg/dL Creatinine 1.00 (0.66-1.25) mg/dL Estimated GFR > 60.0 (>60) mL/min BUN/Creatinine Ratio 45.0 H (6-22) Glucose 290 H (80-110) mg/dL Lactate (0.7-2.1) mmol/L Calcium 9.4 (8.4-10.2) mg/dL Total Bilirubin 1.0 (0.2-1.3) mg/dL AST 28 (17-59) IU/L ALT 24 (21-72) IU/L Alkaline Phosphatase 49 (38-126) U/L Total Creatine Kinase 24 L (55-170) U/L CK-MB (CK-2) TNP CK-MB (CK-2) Rel Index TNP Troponin I 0.040 H (0.01-0.034) ng/mL C-Reactive Protein (<1.0) mg/dL B-Natriuretic Peptide 288 H (<100) Total Protein 5.8 L (6.3-8.2) g/dL Albumin 3.6 (3.5-5.0) g/dL Globulin 2.2 (1.7-4.1) g/dL Albumin/Globulin Ratio 1.6 (1.0-2.8) Prolactin (3.7-17.9) ng/mL Urine Ictotest (Negative) Urine RBC (0-5/HPF) Urine WBC (0-5/HPF) Ur Squamous Epith Cells Uric Acid Crystals Amorphous Sediment Urine Bacteria (None) Ur Culture Indicated? Micro UA Comment 04/17/18 04/17/18 04/17/18 Range/Units 14:12 14:16 14:16 WBC (4.5-11.0) X10^3/uL RBC (4.5-5.9) X10^6/uL Hgb (13.5-17.5) g/dL Hct (41-53) % MCV (80-100) fL MCH (26-34) PG MCHC (30-36) % RDW (11.6-14.8) % Plt Count (150-400) X10^3/uL Neut % (Auto) (50-75) % Lymph % (Auto) (25-40) % [place] % (Auto) (3-14) % Eos % (Auto) (2-4) % Baso % (Auto) (0-2) % Neut # (Auto) (4933-3272) /uL Total Counted Seg Neutrophils % (38-70) % Band Neutrophils % (3-7) % Lymphocytes % (Manual) (25-45) % Monocytes % (Manual) (2-11) % Neutrophils # (Manual) (3486-6145) /uL Nucleated RBCs ( - 0) #/Diff RBC Morphology Poikilocytosis Sodium (137-145) mmol/L Potassium (3.4-5.1) mmol/L Chloride (98-107) mmol/L Carbon Dioxide (22-32) mmol/L BUN (9-20) mg/dL Creatinine (0.66-1.25) mg/dL Estimated GFR (>60) mL/min BUN/Creatinine Ratio (6-22) Glucose (80-110) mg/dL Lactate 2.1 (0.7-2.1) mmol/L Calcium (8.4-10.2) mg/dL Total Bilirubin (0.2-1.3) mg/dL AST (17-59) IU/L ALT (21-72) IU/L Alkaline Phosphatase (38-126) U/L Total Creatine Kinase (55-170) U/L CK-MB (CK-2) CK-MB (CK-2) Rel Index Troponin I (0.01-0.034) ng/mL C-Reactive Protein (<1.0) mg/dL B-Natriuretic Peptide (<100) Total Protein (6.3-8.2) g/dL Albumin (3.5-5.0) g/dL Globulin (1.7-4.1) g/dL Albumin/Globulin Ratio (1.0-2.8) Prolactin (3.7-17.9) ng/mL Urine Ictotest Negative (Negative) Urine RBC 5-10/hpf H (0-5/HPF) Urine WBC 0-1/hpf (0-5/HPF) Ur Squamous Epith Cells 0-1 /hpf Uric Acid Crystals Few Amorphous Sediment 1+ Urine Bacteria None seen (None) Ur Culture Indicated? Cult not indicated Micro UA Comment Not Reportable 04/17/18 04/17/18 04/17/18 Range/Units 16:20 17:20 17:20 WBC (4.5-11.0) X10^3/uL RBC (4.5-5.9) X10^6/uL Hgb (13.5-17.5) g/dL Hct (41-53) % MCV (80-100) fL MCH (26-34) PG MCHC (30-36) % RDW (11.6-14.8) % Plt Count (150-400) X10^3/uL Neut % (Auto) (50-75) % Lymph % (Auto) (25-40) % [place] % (Auto) (3-14) % Eos % (Auto) (2-4) % Baso % (Auto) (0-2) % Neut # (Auto) (0427-5997) /uL Total Counted Seg Neutrophils % (38-70) % Band Neutrophils % (3-7) % Lymphocytes % (Manual) (25-45) % Monocytes % (Manual) (2-11) % Neutrophils # (Manual) (8962-3782) /uL Nucleated RBCs ( - 0) #/Diff RBC Morphology Poikilocytosis Sodium (137-145) mmol/L Potassium (3.4-5.1) mmol/L Chloride (98-107) mmol/L Carbon Dioxide (22-32) mmol/L BUN (9-20) mg/dL Creatinine (0.66-1.25) mg/dL Estimated GFR (>60) mL/min BUN/Creatinine Ratio (6-22) Glucose (80-110) mg/dL Lactate (0.7-2.1) mmol/L Calcium (8.4-10.2) mg/dL Total Bilirubin (0.2-1.3) mg/dL AST (17-59) IU/L ALT (21-72) IU/L Alkaline Phosphatase (38-126) U/L Total Creatine Kinase (55-170) U/L CK-MB (CK-2) CK-MB (CK-2) Rel Index Troponin I 0.027 (0.01-0.034) ng/mL C-Reactive Protein < 0.5 (<1.0) mg/dL B-Natriuretic Peptide (<100) Total Protein (6.3-8.2) g/dL Albumin (3.5-5.0) g/dL Globulin (1.7-4.1) g/dL Albumin/Globulin Ratio (1.0-2.8) Prolactin 10.2 (3.7-17.9) ng/mL Urine Ictotest (Negative) Urine RBC (0-5/HPF) Urine WBC (0-5/HPF) Ur Squamous Epith Cells Uric Acid Crystals Amorphous Sediment Urine Bacteria (None) Ur Culture Indicated? Micro UA Comment 04/18/18 04/18/18 Range/Units 04:58 04:58 WBC 7.3 (4.5-11.0) X10^3/uL RBC 3.77 L (4.5-5.9) X10^6/uL Hgb 12.8 L (13.5-17.5) g/dL Hct 37.0 L (41-53) % MCV 97.9 (80-100) fL MCH 34.0 (26-34) PG MCHC 34.7 (30-36) % RDW 14.9 H (11.6-14.8) % Plt Count 72 L (150-400) X10^3/uL Neut % (Auto) Not Reportable (50-75) % Lymph % (Auto) Not Reportable (25-40) % [place] % (Auto) Not Reportable (3-14) % Eos % (Auto) Not Reportable (2-4) % Baso % (Auto) Not Reportable (0-2) % Neut # (Auto) (1057-1444) /uL Total Counted 100 Seg Neutrophils % 81.0 H (38-70) % Band Neutrophils % 4.0 (3-7) % Lymphocytes % (Manual) 7.0 L (25-45) % Monocytes % (Manual) 8.0 (2-11) % Neutrophils # (Manual) 6205 H (0555-9430) /uL Nucleated RBCs 1 H ( - 0) #/Diff RBC Morphology See below Poikilocytosis 1+ H Sodium 137 (137-145) mmol/L Potassium 4.1 (3.4-5.1) mmol/L Chloride 100 (98-107) mmol/L Carbon Dioxide 28 (22-32) mmol/L BUN 36 H (9-20) mg/dL Creatinine 0.90 (0.66-1.25) mg/dL Estimated GFR > 60.0 (>60) mL/min BUN/Creatinine Ratio 40.0 H (6-22) Glucose 206 H (80-110) mg/dL Lactate (0.7-2.1) mmol/L Calcium 8.6 (8.4-10.2) mg/dL Total Bilirubin 1.0 (0.2-1.3) mg/dL AST 24 (17-59) IU/L ALT 33 (21-72) IU/L Alkaline Phosphatase 49 (38-126) U/L Total Creatine Kinase (55-170) U/L CK-MB (CK-2) CK-MB (CK-2) Rel Index Troponin I 0.041 H (0.01-0.034) ng/mL C-Reactive Protein (<1.0) mg/dL B-Natriuretic Peptide 301 H (<100) Total Protein 5.2 L (6.3-8.2) g/dL Albumin 3.1 L (3.5-5.0) g/dL Globulin 2.1 (1.7-4.1) g/dL Albumin/Globulin Ratio 1.5 (1.0-2.8) Prolactin (3.7-17.9) ng/mL Urine Ictotest (Negative) Urine RBC (0-5/HPF) Urine WBC (0-5/HPF) Ur Squamous Epith Cells Uric Acid Crystals Amorphous Sediment Urine Bacteria (None) Ur Culture Indicated? Micro UA Comment Point of Care Testing Glucose POC 311 Urine Dip Bedside Urine Glucose Negative Bedside Urine Bilirubin + 1 Bedside Urine Ketone - Negative Urine Specific [place] 1.020 Bedside Urine Occult Blood +++ Bedside Urine pH 5.5 Bedside Urine Protein +/- 15 Bedside Urine Urobilinogen - Negative Bedside Urine Nitrite - Negative Bedside Urine Leukocytes - Negative Esterase Imaging Data CT scan - head: Radiologist's impression: View Report History Print [address] [address] [address] Scan Report Signed Patient: Nahun Cintron MR#: [id number] : 1940 Acct:[id number] Age/Sex: 78 / M Date of Service: 04/17/18 Loc: ED Accession Number: [id number] Procedure: CT head/brain wo con Ordering Provider: Linda Shah P.A-C PROCEDURE: CT HEAD/BRAIN WO CON INDICATIONS: syncopal episodes, Ca history TECHNIQUE: Noncontrast 4.5 mm thick angled axial sections acquired from the foramen magnum to the vertex, with coronal and sagittal reformats. For radiation dose reduction, the following was used: automated exposure control, adjustment of mA and/or kV according to patient size. COMPARISON: [facility], CT, CT HEAD/BRAIN WO CON, 02/22/2018, 10:16. FINDINGS: Image quality: Excellent. CSF spaces: Basal cisterns are patent. No extra-axial fluid collections. The ventricles are symmetric in size and shape. Brain: No intracranial bleeds or masses. There is cerebral volume loss for age, with resultant ventricular and sulcal prominence. There are periventricular and deep white matter chronic small vessel ischemic changes. There is intracranial internal carotid artery atherosclerosis. Skull and face: Calvarium and visualized facial bones appear intact, without suspicious lesions. Sinuses: Visualized sinuses and mastoids are clear. IMPRESSION: No acute intracranial abnormality. Dictated by: Lianna Bowen M.D. on 04/17/2018 at 13:33 Approved by: Lianna Bowen M.D. on 04/17/2018 at 13:34 View Report History Print [address] [address] XRay Report Signed Patient: Nahun Cintron MR#: [id number] : 1940 Acct:[id number] Age/Sex: 78 / M Date of Service: 04/17/18 Loc: ED Accession Number: [id number] Procedure: XR chest 2V Ordering Provider: Linda Shah P.A-C PROCEDURE: XR CHEST 2V INDICATIONS: recent pneumonia, syncope TECHNIQUE: 2 views of the chest were acquired. COMPARISON: [facility], CR, XR CHEST 1V, 03/29/2018, 15:15. [facility], CR, XR CHEST 2V, 10/17/2017, 14:08. [facility], CR, XR CHEST 2V, 09/29/2017, 21:55. [facility], CR, XR CHEST 2V, 09/24/2017, 14:03. FINDINGS: Surgical changes and devices: None. Lungs and pleura: No pleural effusions or pneumothorax. Increased, [id number] patchy bibasilar airspace opacity. Mediastinum: Mediastinal contours are normal. Heart size is normal. Bones and chest wall: No suspicious bony abnormalities. Soft tissues appear unremarkable. IMPRESSION: Increased bibasilar pneumonia. Continued plain film surveillance is recommended to ensure resolution, and to exclude underlying or central malignancy. Dictated by: Lianna Bowen M.D. on 04/17/2018 at 13:46 Approved by: Lianna Bowen M.D. on 04/17/2018 at 13:46 ECG Data Attestation: I personally reviewed and interpreted this ECG as follows: (Sinus rhythm with rate 70, left axis deviation, chronic inferior ST changes) <Annamaria Jeter, DO - Last Filed: 04/18/18 08:21> Lab Data Lab Results 04/17/18 04/17/18 04/17/18 Range/Units 11:55 11:55 11:55 WBC 8.8 (4.5-11.0) X10^3/uL RBC 4.05 L (4.5-5.9) X10^6/uL Hgb 13.5 (13.5-17.5) g/dL Hct 40.2 L (41-53) % MCV 99.2 (80-100) fL MCH 33.3 (26-34) PG MCHC 33.6 (30-36) % RDW 15.2 H (11.6-14.8) % Plt Count 85 L (150-400) X10^3/uL Neut % (Auto) 87.5 H (50-75) % Lymph % (Auto) 6.0 L (25-40) % [place] % (Auto) 6.2 (3-14) % Eos % (Auto) 0.0 L (2-4) % Baso % (Auto) 0.3 (0-2) % Neut # (Auto) 7700 H (5654-6366) /uL Total Counted Seg Neutrophils % (38-70) % Band Neutrophils % (3-7) % Lymphocytes % (Manual) (25-45) % Monocytes % (Manual) (2-11) % Neutrophils # (Manual) (3169-8116) /uL Nucleated RBCs ( - 0) #/Diff RBC Morphology Poikilocytosis Sodium 136 L (137-145) mmol/L Potassium 4.5 (3.4-5.1) mmol/L Chloride 99 (98-107) mmol/L Carbon Dioxide 23 (22-32) mmol/L BUN 45 H (9-20) mg/dL Creatinine 1.00 (0.66-1.25) mg/dL Estimated GFR > 60.0 (>60) mL/min BUN/Creatinine Ratio 45.0 H (6-22) Glucose 290 H (80-110) mg/dL Lactate (0.7-2.1) mmol/L Calcium 9.4 (8.4-10.2) mg/dL Total Bilirubin 1.0 (0.2-1.3) mg/dL AST 28 (17-59) IU/L ALT 24 (21-72) IU/L Alkaline Phosphatase 49 (38-126) U/L Total Creatine Kinase 24 L (55-170) U/L CK-MB (CK-2) TNP CK-MB (CK-2) Rel Index TNP Troponin I 0.040 H (0.01-0.034) ng/mL C-Reactive Protein (<1.0) mg/dL B-Natriuretic Peptide 288 H (<100) Total Protein 5.8 L (6.3-8.2) g/dL Albumin 3.6 (3.5-5.0) g/dL Globulin 2.2 (1.7-4.1) g/dL Albumin/Globulin Ratio 1.6 (1.0-2.8) Prolactin (3.7-17.9) ng/mL Urine Ictotest (Negative) Urine RBC (0-5/HPF) Urine WBC (0-5/HPF) Ur Squamous Epith Cells Uric Acid Crystals Amorphous Sediment Urine Bacteria (None) Ur Culture Indicated? Micro UA Comment 04/17/18 04/17/18 04/17/18 Range/Units 14:12 14:16 14:16 WBC (4.5-11.0) X10^3/uL RBC (4.5-5.9) X10^6/uL Hgb (13.5-17.5) g/dL Hct (41-53) % MCV (80-100) fL MCH (26-34) PG MCHC (30-36) % RDW (11.6-14.8) % Plt Count (150-400) X10^3/uL Neut % (Auto) (50-75) % Lymph % (Auto) (25-40) % [place] % (Auto) (3-14) % Eos % (Auto) (2-4) % Baso % (Auto) (0-2) % Neut # (Auto) (9089-1514) /uL Total Counted Seg Neutrophils % (38-70) % Band Neutrophils % (3-7) % Lymphocytes % (Manual) (25-45) % Monocytes % (Manual) (2-11) % Neutrophils # (Manual) (1868-7660) /uL Nucleated RBCs ( - 0) #/Diff RBC Morphology Poikilocytosis Sodium (137-145) mmol/L Potassium (3.4-5.1) mmol/L Chloride (98-107) mmol/L Carbon Dioxide (22-32) mmol/L BUN (9-20) mg/dL Creatinine (0.66-1.25) mg/dL Estimated GFR (>60) mL/min BUN/Creatinine Ratio (6-22) Glucose (80-110) mg/dL Lactate 2.1 (0.7-2.1) mmol/L Calcium (8.4-10.2) mg/dL Total Bilirubin (0.2-1.3) mg/dL AST (17-59) IU/L ALT (21-72) IU/L Alkaline Phosphatase (38-126) U/L Total Creatine Kinase (55-170) U/L CK-MB (CK-2) CK-MB (CK-2) Rel Index Troponin I (0.01-0.034) ng/mL C-Reactive Protein (<1.0) mg/dL B-Natriuretic Peptide (<100) Total Protein (6.3-8.2) g/dL Albumin (3.5-5.0) g/dL Globulin (1.7-4.1) g/dL Albumin/Globulin Ratio (1.0-2.8) Prolactin (3.7-17.9) ng/mL Urine Ictotest Negative (Negative) Urine RBC 5-10/hpf H (0-5/HPF) Urine WBC 0-1/hpf (0-5/HPF) Ur Squamous Epith Cells 0-1 /hpf Uric Acid Crystals Few Amorphous Sediment 1+ Urine Bacteria None seen (None) Ur Culture Indicated? Cult not indicated Micro UA Comment Not Reportable 04/17/18 04/17/18 04/17/18 Range/Units 16:20 17:20 17:20 WBC (4.5-11.0) X10^3/uL RBC (4.5-5.9) X10^6/uL Hgb (13.5-17.5) g/dL Hct (41-53) % MCV (80-100) fL MCH (26-34) PG MCHC (30-36) % RDW (11.6-14.8) % Plt Count (150-400) X10^3/uL Neut % (Auto) (50-75) % Lymph % (Auto) (25-40) % [place] % (Auto) (3-14) % Eos % (Auto) (2-4) % Baso % (Auto) (0-2) % Neut # (Auto) (5077-9707) /uL Total Counted Seg Neutrophils % (38-70) % Band Neutrophils % (3-7) % Lymphocytes % (Manual) (25-45) % Monocytes % (Manual) (2-11) % Neutrophils # (Manual) (8068-2890) /uL Nucleated RBCs ( - 0) #/Diff RBC Morphology Poikilocytosis Sodium (137-145) mmol/L Potassium (3.4-5.1) mmol/L Chloride (98-107) mmol/L Carbon Dioxide (22-32) mmol/L BUN (9-20) mg/dL Creatinine (0.66-1.25) mg/dL Estimated GFR (>60) mL/min BUN/Creatinine Ratio (6-22) Glucose (80-110) mg/dL Lactate (0.7-2.1) mmol/L Calcium (8.4-10.2) mg/dL Total Bilirubin (0.2-1.3) mg/dL AST (17-59) IU/L ALT (21-72) IU/L Alkaline Phosphatase (38-126) U/L Total Creatine Kinase (55-170) U/L CK-MB (CK-2) CK-MB (CK-2) Rel Index Troponin I 0.027 (0.01-0.034) ng/mL C-Reactive Protein < 0.5 (<1.0) mg/dL B-Natriuretic Peptide (<100) Total Protein (6.3-8.2) g/dL Albumin (3.5-5.0) g/dL Globulin (1.7-4.1) g/dL Albumin/Globulin Ratio (1.0-2.8) Prolactin 10.2 (3.7-17.9) ng/mL Urine Ictotest (Negative) Urine RBC (0-5/HPF) Urine WBC (0-5/HPF) Ur Squamous Epith Cells Uric Acid Crystals Amorphous Sediment Urine Bacteria (None) Ur Culture Indicated? Micro UA Comment 04/18/18 04/18/18 Range/Units 04:58 04:58 WBC 7.3 (4.5-11.0) X10^3/uL RBC 3.77 L (4.5-5.9) X10^6/uL Hgb 12.8 L (13.5-17.5) g/dL Hct 37.0 L (41-53) % MCV 97.9 (80-100) fL MCH 34.0 (26-34) PG MCHC 34.7 (30-36) % RDW 14.9 H (11.6-14.8) % Plt Count 72 L (150-400) X10^3/uL Neut % (Auto) Not Reportable (50-75) % Lymph % (Auto) Not Reportable (25-40) % [place] % (Auto) Not Reportable (3-14) % Eos % (Auto) Not Reportable (2-4) % Baso % (Auto) Not Reportable (0-2) % Neut # (Auto) (7849-6110) /uL Total Counted 100 Seg Neutrophils % 81.0 H (38-70) % Band Neutrophils % 4.0 (3-7) % Lymphocytes % (Manual) 7.0 L (25-45) % Monocytes % (Manual) 8.0 (2-11) % Neutrophils # (Manual) 6205 H (7535-3812) /uL Nucleated RBCs 1 H ( - 0) #/Diff RBC Morphology See below Poikilocytosis 1+ H Sodium 137 (137-145) mmol/L Potassium 4.1 (3.4-5.1) mmol/L Chloride 100 (98-107) mmol/L Carbon Dioxide 28 (22-32) mmol/L BUN 36 H (9-20) mg/dL Creatinine 0.90 (0.66-1.25) mg/dL Estimated GFR > 60.0 (>60) mL/min BUN/Creatinine Ratio 40.0 H (6-22) Glucose 206 H (80-110) mg/dL Lactate (0.7-2.1) mmol/L Calcium 8.6 (8.4-10.2) mg/dL Total Bilirubin 1.0 (0.2-1.3) mg/dL AST 24 (17-59) IU/L ALT 33 (21-72) IU/L Alkaline Phosphatase 49 (38-126) U/L Total Creatine Kinase (55-170) U/L CK-MB (CK-2) CK-MB (CK-2) Rel Index Troponin I 0.041 H (0.01-0.034) ng/mL C-Reactive Protein (<1.0) mg/dL B-Natriuretic Peptide 301 H (<100) Total Protein 5.2 L (6.3-8.2) g/dL Albumin 3.1 L (3.5-5.0) g/dL Globulin 2.1 (1.7-4.1) g/dL Albumin/Globulin Ratio 1.5 (1.0-2.8) Prolactin (3.7-17.9) ng/mL Urine Ictotest (Negative) Urine RBC (0-5/HPF) Urine WBC (0-5/HPF) Ur Squamous Epith Cells Uric Acid Crystals Amorphous Sediment Urine Bacteria (None) Ur Culture Indicated? Micro UA Comment Point of Care Testing Glucose POC 311 Urine Dip Bedside Urine Glucose Negative Bedside Urine Bilirubin + 1 Bedside Urine Ketone - Negative Urine Specific [place] 1.020 Bedside Urine Occult Blood +++ Bedside Urine pH 5.5 Bedside Urine Protein +/- 15 Bedside Urine Urobilinogen - Negative Bedside Urine Nitrite - Negative Bedside Urine Leukocytes - Negative Esterase Discharge Plan Departure Patient Disposition: Admitted As Inpatient Clinical Impression: Syncope Discharge Date/Time: 04/17/18 15:10 Interventions: ED Discharge Assessment Last Done: 04/17/18 15:10 Admit Date/Time: 04/17/18 14:22 Admit Provider: Aisha Helms <Annamaria Jeter DO - Last Filed: 04/18/18 08:21> Cosign ED Attending Cosignature Attestation: I was immediately available in the department for consultation. This documentation has been reviewed and I agree with assessment and plan. Supervised by Annamaria Jeter DO
--- NOTE | 2018-04-17 13:08 | DI.CT.S_ITS ---
PROCEDURE: CT HEAD/BRAIN WO CON INDICATIONS: syncopal episodes, Ca history TECHNIQUE: Noncontrast 4.5 mm thick angled axial sections acquired from the foramen magnum to the vertex, with coronal and sagittal reformats. For radiation dose reduction, the following was used: automated exposure control, adjustment of mA and/or kV according to patient size. COMPARISON: [facility], CT, CT HEAD/BRAIN WO CON, 02/22/2018, 10:16. FINDINGS: Image quality: Excellent. CSF spaces: Basal cisterns are patent. No extra-axial fluid collections. The ventricles are symmetric in size and shape. Brain: No intracranial bleeds or masses. There is cerebral volume loss for age, with resultant ventricular and sulcal prominence. There are periventricular and deep white matter chronic small vessel ischemic changes. There is intracranial internal carotid artery atherosclerosis. Skull and face: Calvarium and visualized facial bones appear intact, without suspicious lesions. Sinuses: Visualized sinuses and mastoids are clear. IMPRESSION: No acute intracranial abnormality. Dictated by: Lianna Bowen M.D. on 04/17/2018 at 13:33 Approved by: Lianna Bowen M.D. on 04/17/2018 at 13:34
--- NOTE | 2018-04-17 13:09 | DI.RAD.S_ITS ---
PROCEDURE: XR CHEST 2V INDICATIONS: recent pneumonia, syncope TECHNIQUE: 2 views of the chest were acquired. COMPARISON: [facility], CR, XR CHEST 1V, 03/29/2018, 15:15. [facility], CR, XR CHEST 2V, 10/17/2017, 14:08. [facility], CR, XR CHEST 2V, 09/29/2017, 21:55. [facility], CR, XR CHEST 2V, 09/24/2017, 14:03. FINDINGS: Surgical changes and devices: None. Lungs and pleura: No pleural effusions or pneumothorax. Increased, [id number] patchy bibasilar airspace opacity. Mediastinum: Mediastinal contours are normal. Heart size is normal. Bones and chest wall: No suspicious bony abnormalities. Soft tissues appear unremarkable. IMPRESSION: Increased bibasilar pneumonia. Continued plain film surveillance is recommended to ensure resolution, and to exclude underlying or central malignancy. Dictated by: Lianna Bowen M.D. on 04/17/2018 at 13:46 Approved by: Lianna Bowen M.D. on 04/17/2018 at 13:46
[2018-04-17] MEDS: SODIUM CHLORIDE 0.9% 1,000 ML 1000 ML IV (13:25)
--- NOTE | 2018-04-17 13:34 | PC.NURSE ---
Per , blood pressure is often up and down drastically. Did not finish orthostatic vital signs with standing, due to drop in pressure.
[2018-04-17 13:38] LABS: B Type Natriuretic Peptide 288 (<100)
[2018-04-17 14:18] LABS: Bacteria Urine None Seen
[2018-04-17 14:30] LABS: Amorphous Sediment Urine 1+; Culture Indicated Urine Cult Not Indicated; RBC Urine 5-10/HPF (0-5/HPF); Squamous Epithelial Cell Urine 0-1 /HPF; Uric Acid Crystals Urine Few; WBC Urine 0-1/HPF (0-5/HPF)
[2018-04-17 14:30] LABS: Lactate (Lactic Acid) 2.1 mmol/L (0.7-2.1)
[2018-04-17 14:31] LABS: Ictotest Urine Negative (Negative)
--- NOTE | 2018-04-17 15:28 | PC.ADMIT ---
Admission Note: Patient arrived to room 224 via stretcher at 1310. Ambulated from stretcher to bathroom to void - used FWW and was intermittently unsteady on feet which patient reports has been happening at home. Pt is alert and oriented x3. RA at 97%. Oriented to room and to call light/tv/bed controls. Call light within reach and bed alarm on. Pt has dressing to left flank which reports is from a recent cyst removal and been treated with warm compresses and antibiotic ointment. Pt also has abrasion/skin tear to left upper arm that is covered with dressing. Reports this is from recent fall at home after one of his episodes. Clothing in room. The patient,Nahun Cintron,78 y/o, was given written information regarding hospital policies, unit procedures and contact persons. Patient's smoking status: Former smoker. Vital Signs - 8 hr 04/17/18 11:57 04/17/18 12:30 04/17/18 13:00 Temperature 98.4 F Pulse Rate 80 74 79 Pulse Rate [Orthostatic Lying] Pulse Rate [Orthostatic Sitting] Respiratory Rate 16 15 17 Blood Pressure 103/68 Blood Pressure [Orthostatic Lying] Blood Pressure [Orthostatic Sitting] Blood Pressure [Right Arm] 117/75 126/79 Pulse Oximetry 96 96 96 04/17/18 13:34 04/17/18 14:30 Temperature Pulse Rate Pulse Rate [Orthostatic Lying] 65 Pulse Rate [Orthostatic Sitting] 78 Respiratory Rate Blood Pressure Blood Pressure [Orthostatic Lying] 170/108 H Blood Pressure [Orthostatic Sitting] 124/88 Blood Pressure [Right Arm] 165/87 H Pulse Oximetry
[2018-04-17 17:06] LABS: Troponin I 0.027 ng/mL (0.01-0.034)
--- NOTE | 2018-04-17 17:20 | P.HP_ITS ---
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 Patient also has a history of metastatic prostate cancer. He completed 4 rounds of chemotherapy with carboplatin and etoposide. He has a history of rheumatoid arthritis on methotrexate and depression. Patient was hospitalized in March of this year. He was discharged at that time with left lower lobe pneumonia. He had generalized weakness. Since discharge the patient has followed up with his oncologist. There was concern that he had adrenal insufficiency as a complication of 1 of his medications specifically the Zytiga. Patient was placed on high-dose steroids to include prednisone 100 mg per day. According to his significant other he has had multiple episodes of weakness, shakiness, and confusion. He has shaking of the upper extremities however there has been no observed tonic-clonic activity, incontinence, foaming at the mouth. The patient is somewhat confused during the episodes. They last about 45 sec and then resolved. The episodes were occurring infrequently starting in February. However today the patient had 5 episodes where he had confusion shaking and overall weakness. Patient was evaluated in the emergency department and had a head CT which was unremarkable. A chest x-ray confirmed bibasilar infiltrates which is new since his prior x-ray in March. The patient denies any fever chills or cough. He has no shortness of breath. He denies any nausea vomiting or diarrhea. He has no significant joint pains or rashes. Patient has alopecia from his prior chemotherapy. Patient History Medical History 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) Thrombocytopenia (Chronic) Leukopenia (Chronic) Small cell lung cancer (Chronic) Renal insufficiency (Chronic) Coronary artery disease (Chronic) Depression (Chronic) Diabetes type 2, controlled (Chronic) Hyperlipidemia (Chronic) Hypertension (Chronic) Rheumatoid arthritis (Chronic) History of nephrolithotomy with removal of calculi (Resolved) History of pulmonary embolism (Resolved) Kidney stone (Resolved) Thrombophlebitis of arm, left (Resolved) UTI (urinary tract infection) (Inactive) Surgical History H/O umbilical hernia repair (Acute) H/O coronary angioplasty (Resolved) History of appendectomy (Resolved) History of cholecystectomy (Resolved) Family & Social History Family History: Reviewed 04/17/18 by Aisha Helms MD Social History: household members significant other Safety & Behavioral: Feels Safe in Current Yes Environment Been Physically Hurt or No Threatened By a Person Suicidal Ideation Description None Suicide Plan Description No Plan Tobacco & Substance use: Tobacco type cigarettes Smoking Status Former smoker alcohol intake never Substance Use Type does not use Meds Home Medications Medication Instructions Recorded Confirmed Type atorvastatin [Lipitor] 40 mg PO BEDTIME #0 03/21/17 04/17/18 History ascorbic acid (vitamin C) 1,500 mg PO DAILY #0 06/01/17 04/17/18 History calcium carbonate 1,200 mg PO Q DAY #0 06/01/17 04/17/18 History cholecalciferol (vitamin D3) 2,000 iu PO QDAY #0 06/01/17 04/17/18 History [Vitamin D3] magnesium 200 mg PO Q DAY #0 06/01/17 04/17/18 History multivitamin [Multiple Vitamins] 1 tab PO QDAY #0 06/01/17 04/17/18 History methotrexate sodium 10 mg PO QWEEK 09/12/17 04/17/18 History nitroglycerin [Nitrostat] 0.4 mg SUBLINGUAL [id number] PRN #30 10/01/17 04/17/18 Rx tab metformin 500 mg PO BID 01/02/18 04/17/18 History rivaroxaban [Xarelto] 20 mg PO DAILY #90 tab 02/07/18 04/17/18 Rx carvedilol 6.25 mg PO BID 02/22/18 04/17/18 History citalopram 10 mg PO BEDTIME 02/22/18 04/17/18 History doxazosin 8 mg PO BEDTIME 02/22/18 04/17/18 History folic acid 0.8 mg PO DAILY 02/22/18 04/17/18 History mupirocin calcium [Bactroban] 1 applic TOPICAL BEDTIME 03/29/18 04/17/18 History timolol 1 dose EYE-LEFT BID 03/29/18 04/17/18 History hydrocortisone 40 mg PO BID 04/11/18 04/17/18 History Probiotic 1 cap PO BID 04/17/18 04/17/18 History omeprazole 20 mg PO DAILY 04/17/18 04/17/18 History prednisone 40 mg PO BID 04/17/18 04/17/18 History Allergies Allergy/AdvReac Type Severity Reaction Status Date / Time chlorthalidone Allergy Verified 04/17/18 11:57 hydroxychloroquine Allergy Verified 04/17/18 11:57 [From Plaquenil] niacin [NIACIN] AdvReac Severe Hypotension Verified 04/17/18 11:57 amlodipine [AMLODIPINE] AdvReac Unknown Verified 04/17/18 11:57 gemfibrozil [GEMFIBROZIL] AdvReac Unknown Verified 04/17/18 11:57 hydrochlorothiazide AdvReac Unknown Verified 04/17/18 11:57 [HYDROCHLOROTHIAZIDE] lisinopril [LISINOPRIL] AdvReac Unknown Verified 04/17/18 11:57 Review of Systems Review of Systems All systems reviewed & are unremarkable except as noted in HPI and below Exam Vital Signs (past 8 hours): - 04/17/18 11:57 04/17/18 12:30 04/17/18 13:00 Temperature 98.4 F Pulse Rate 80 74 79 Pulse Rate [Orthostatic Lying] Pulse Rate [Orthostatic Sitting] Respiratory Rate 16 15 17 Blood Pressure 103/68 Blood Pressure [Orthostatic Lying] Blood Pressure [Orthostatic Sitting] Blood Pressure [Right Arm] 117/75 126/79 Pulse Oximetry 96 96 96 04/17/18 13:34 04/17/18 14:30 04/17/18 16:55 Temperature 98.3 F Pulse Rate 68 Pulse Rate [Orthostatic Lying] 65 Pulse Rate [Orthostatic Sitting] 78 Respiratory Rate 16 Blood Pressure 177/96 H Blood Pressure [Orthostatic Lying] 170/108 H Blood Pressure [Orthostatic Sitting] 124/88 Blood Pressure [Right Arm] 165/87 H Pulse Oximetry 97 Oxygen Delivery Method Room Air Narrative Exam Narrative: Pleasant male resting comfortably in no obvious distress HEENT: Patient has alopecia, no evidence of radiation dermatitis, extraocular muscles are intact, oropharynx is clear, he has dry mucous membranes, his neck is supple, there is no appreciable adenopathy. Lungs: Decreased breath sounds with basilar scattered rhonchi Cardiac exam: Regular rate and rhythm normal S1-S2 occasional extra beat 2/6 systolic ejection Abdomen: Obese soft nontender nondistended, no appreciable hepatosplenomegaly Extremities: No edema Skin: Left arm left arm reveals an abrasion with denuded skin multiple areas of ecchymoses on the forearms Left hip: 3 areas of cystic lesions with minimal exudate no evidence of erythema in various stages of healing Neuro exam: His cranial nerves are intact, strength is symmetric and equal, sensation is grossly intact, gait is not assessed this The patient is mentating normally, he is alert and oriented, he has no active hallucination, no evidence of delusions, Objective Labs Result Diagrams: 04/17/18 11:55 04/17/18 11:55 Labs: Laboratory Results - last 24 hr 04/17/18 04/17/18 04/17/18 11:55 11:55 11:55 WBC 8.8 RBC 4.05 L Hgb 13.5 Hct 40.2 L MCV 99.2 MCH 33.3 MCHC 33.6 RDW 15.2 H Plt Count 85 L Neut % (Auto) 87.5 H Lymph % (Auto) 6.0 L [place] % (Auto) 6.2 Eos % (Auto) 0.0 L Baso % (Auto) 0.3 Neut # (Auto) 7700 H Sodium 136 L Potassium 4.5 Chloride 99 Carbon Dioxide 23 BUN 45 H Creatinine 1.00 Estimated GFR > 60.0 BUN/Creatinine Ratio 45.0 H Glucose 290 H Lactate Calcium 9.4 Total Bilirubin 1.0 AST 28 ALT 24 Alkaline Phosphatase 49 Total Creatine Kinase 24 L CK-MB (CK-2) TNP CK-MB (CK-2) Rel Index TNP Troponin I 0.040 H B-Natriuretic Peptide 288 H Total Protein 5.8 L Albumin 3.6 Globulin 2.2 Albumin/Globulin Ratio 1.6 Urine Ictotest Urine RBC Urine WBC Ur Squamous Epith Cells Uric Acid Crystals Amorphous Sediment Urine Bacteria Ur Culture Indicated? Micro UA Comment 04/17/18 04/17/18 04/17/18 14:12 14:16 14:16 WBC RBC Hgb Hct MCV MCH MCHC RDW Plt Count Neut % (Auto) Lymph % (Auto) [place] % (Auto) Eos % (Auto) Baso % (Auto) Neut # (Auto) Sodium Potassium Chloride Carbon Dioxide BUN Creatinine Estimated GFR BUN/Creatinine Ratio Glucose Lactate 2.1 Calcium Total Bilirubin AST ALT Alkaline Phosphatase Total Creatine Kinase CK-MB (CK-2) CK-MB (CK-2) Rel Index Troponin I B-Natriuretic Peptide Total Protein Albumin Globulin Albumin/Globulin Ratio Urine Ictotest Negative Urine RBC 5-10/hpf H Urine WBC 0-1/hpf Ur Squamous Epith Cells 0-1 /hpf Uric Acid Crystals Few Amorphous Sediment 1+ Urine Bacteria None seen Ur Culture Indicated? Cult not indicated Micro UA Comment Not Reportable 04/17/18 16:20 WBC RBC Hgb Hct MCV MCH MCHC RDW Plt Count Neut % (Auto) Lymph % (Auto) [place] % (Auto) Eos % (Auto) Baso % (Auto) Neut # (Auto) Sodium Potassium Chloride Carbon Dioxide BUN Creatinine Estimated GFR BUN/Creatinine Ratio Glucose Lactate Calcium Total Bilirubin AST ALT Alkaline Phosphatase Total Creatine Kinase CK-MB (CK-2) CK-MB (CK-2) Rel Index Troponin I 0.027 B-Natriuretic Peptide Total Protein Albumin Globulin Albumin/Globulin Ratio Urine Ictotest Urine RBC Urine WBC Ur Squamous Epith Cells Uric Acid Crystals Amorphous Sediment Urine Bacteria Ur Culture Indicated? Micro UA Comment Assessment & Plan (1) Syncope: Problem details: Patient has had multiple episodes associated with weakness, shaking, and confusion. He has not passed out. Initially this was thought to be related to whole-brain radiation radiation and or adrenal insufficiency. Differential diagnosis includes syncope, adrenal insufficiency, seizure disorder, versus metastatic disease to the brain. At this time will obtain a head MRI. Will obtain orthostatic vital signs. Will continue his steroids but tapered accordingly. In addition consider starting an antiepileptic medication should the patient continued to have multiple recurrence episodes. Qualifiers: Encounter type: Syncope type: Current visit: Yes Status: Acute (2) Pneumonia: Problem details: Will start the patient on IV antibiotics given his worsening x-ray. Will treat him with ceftriaxone and azithromycin for now Qualifiers: Aspiration pneumonia type: Laterality: left Lung location: Pneumonia type: due to unspecified organism Current visit: No Status: Acute (3) Hyperglycemia: Current visit: No Status: Acute (4) Small cell lung cancer: Problem details: Patient has completed 4 cycles of chemotherapy, as well as whole brain radiation. Continue plans as outlined per Oncology Current visit: No Status: Chronic (5) Prostate cancer metastatic to bone: Problem details: Patient is on hormonal therapy and will continue Current visit: No Status: Chronic (6) CAD (coronary artery disease): Problem details: No active evidence of coronary disease. Will continue to trend troponin given mild elevation Current visit: Yes Status: Acute (7) Rheumatoid arthritis: Problem details: Patient will continue methotrexate 10 mg weekly Current visit: Yes Status: Acute (8) Adrenal insufficiency: Problem details: Will continue steroids however will taper down to a maintenance dose. Current visit: Yes Status: Acute (9) Metastatic malignant neoplasm to prostate: Problem details: He has metastatic prostate cancer with a high Superior score. His PSA is undetectable. He will be due for Lupron injection in April. He will hold the Zytiga Current visit: No Status: Chronic Plan: Assessment/Plan Narrative: Patient is Full code
[2018-04-17] MEDS: DEXTROSE 5%-0.9% NS 1,000 ML 100 ML IV (17:26)
--- NOTE | 2018-04-17 17:56 | PC.NURSE ---
Addendum entered by Nehal Marroquin R.N. 04/17/18 18:32: Return from MRI in stable condition. Initiated IV antibiotic. Family at bedside providing supportive care. Original Note: Jelly shift note: Patient awake, alert, pleasant and cooperative. Ambulating in room with FWW unsteady gait noted. Taken to MRI of head via WC with Tech in stable condition. Cleaned and dressed wounds x 2. Wound 1, large abrasion with skin tear to left upper arm, pin point blood noted scant amount. Placed allevyn dressing. Wound 2, ulceration x 2 to left lateral flank, scant serous drainage noted, discoloration to surrounding areas. No sycopal episodes or sz activity noted. Uses call light appropriately. and friends at bedside providing supportive care.
[2018-04-17 18:04] LABS: C-Reactive Protein Quant < 0.5 mg/dL (<1.0)
[2018-04-17] MEDS: levoFLOXacin 750 MG/150 ML PIGGYBACK 100 MG IV (18:31)
[2018-04-17 20:03] LABS: Prolactin 10.2 ng/mL (3.7-17.9)
[2018-04-17] MEDS: CEFEPIME 2 GM in SODIUM CHLORIDE 0.9% 100 ML 200 ML IV (20:16)
[2018-04-17] MEDS: ATORVASTATIN 20 MG TABLET 40 MG PO (20:21)
[2018-04-17] MEDS: CARVEDILOL 6.25 MG TABLET PO (20:22)
[2018-04-17] MEDS: predniSONE 20 MG TABLET 40 MG PO (20:29)
[2018-04-17] MEDS: DOXAZOSIN 4 MG TABLET 8 MG PO (20:29)
[2018-04-17] MEDS: METFORMIN HCL 500 MG TABLET PO (21:02)
[2018-04-18] VITALS (12 sets, daily range): BP systolic 80–198; BP diastolic 64–136; PULSE 61–104; RESP 18–20; TEMP 36–36.8; O2SAT 95–99; BMI 31.1
[2018-04-18 05:51] LABS: Hemoglobin 12.8 g/dL (13.5-17.5); Mean Corpuscular HGB Conc 34.7 % (30-36); Mean Corpuscular Volume 97.9 fL (80-100); Platelet Count 72 X10^3/uL (150-400); Red Blood Cell Count 3.77 X10^6/uL (4.5-5.9); Red Cell Distribution Width 14.9 % (11.6-14.8); White Blood Cell Count 7.3 X10^3/uL (4.5-11.0)
[2018-04-18 05:54] LABS: Alanine Aminotransferase 33 IU/L (21-72); Albumin 3.1 g/dL (3.5-5.0); Albumin Globulin Ratio 1.5 (1.0-2.8); Alkaline Phosphatase 49 U/L (38-126); Aspartate Aminotransferase 24 IU/L (17-59); Blood Urea Nitrogen 36 mg/dL (9-20); Calcium 8.6 mg/dL (8.4-10.2); Carbon Dioxide 28 mmol/L (22-32); Chloride 100 mmol/L (98-107); Estimated Glomerular Filt Rate > 60.0 mL/min (>60); Globulin 2.1 g/dL (1.7-4.1); Glucose 206 mg/dL (80-110); HEMOLYSIS < 15 (0-50); Potassium 4.1 mmol/L (3.4-5.1); Sodium 137 mmol/L (137-145); Total Protein 5.2 g/dL (6.3-8.2)
[2018-04-18 06:02] LABS: Troponin I 0.041 ng/mL (0.01-0.034)
[2018-04-18 06:03] LABS: Add Manual Diff / Slide Review YES
[2018-04-18 06:04] LABS: B Type Natriuretic Peptide 301 (<100)
[2018-04-18] MEDS: CEFEPIME 2 GM in SODIUM CHLORIDE 0.9% 100 ML 200 ML IV ×2 (06:24→18:57)
[2018-04-18 06:42] LABS: Neutrophils Absolute Manual 6205 /uL (3000-5900); Nucleated Red Blood Cells 1 #/Diff; Total Cells Counted 100
[2018-04-18 06:44] LABS: Poikilocytosis 1+
[2018-04-18] MEDS: CARVEDILOL 6.25 MG TABLET PO (08:44)
[2018-04-18] MEDS: DOCUSATE 100 MG CAPSULE PO ×2 (08:45→20:16)
[2018-04-18] MEDS: TIMOLOL 0.25% OPHTH 1 DROPS EYE-LEFT (08:45)
[2018-04-18] MEDS: FOLIC ACID 0.4 MG TABLET 0.8 MG PO (08:46)
[2018-04-18] MEDS: CITALOPRAM 10 MG TABLET PO (08:46)
[2018-04-18] MEDS: METFORMIN HCL 500 MG TABLET PO ×2 (08:47→16:43)
[2018-04-18] MEDS: CHOLECALCIFEROL (VITAMIN D3) 1,000 UNIT TABLET 2000 UNIT PO (08:47)
[2018-04-18] MEDS: CALCIUM CARBONATE 600 MG TABLET 1200 MG PO (08:47)
[2018-04-18] MEDS: PANTOPRAZOLE 20 MG TABLET PO (08:48)
[2018-04-18] MEDS: RIVAROXABAN 10 MG TABLET 20 MG PO (08:48)
[2018-04-18] MEDS: MULTIVITAMIN 1 TABLET 1 TAB PO (08:48)
[2018-04-18] MEDS: INSULIN ASPART 100 UNIT/ML INSULN PEN SUBCUT ×4 (08:49→20:19)
--- NOTE | 2018-04-18 09:07 | CM.DANOTE ---
DCP: Case received, EMR reviewed and met with patient. Introduced self and role. DCP template completed with information currently available. Patient is a 78 year old female who admitted yesterday afternoon to the care of the hospitalist team. PCP: Dr. Cameron. Payer: confirmed: Medicare/[employer] Patient came to hospital via ambulance due to syncope/seizures. Patient had apparently had two episodes of tremors when he was at PCP office. Patient has history of Metastatic Malignant Neoplasm to the lung, and has been getting treatment for this. Patient carries diagnosis of Pneumonia. Spoke to Vanessa, she is significant other that lives with patient. her phone number is: [phone]. She is his primary caregiver as well, helps with showers as well. Patient does use a walker at home. Vanessa is concerned, for he has some upcoming oncology apts that she does not want him to miss. P: DCP to continue to follow. Will see how he does with treatment here at hospital. Goal would be for patient to return home when stable. May need to work with Jessica Lobo RN/[employer]
--- NOTE | 2018-04-18 11:00 | PT.IIE ---
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 (04/17/18) Atherosclerotic heart disease of [place] coronary artery without angina pectoris (04/17/18) Pneumonia, unspecified organism (04/17/18) Rheumatoid arthritis, unspecified (04/17/18) Syncope and collapse (04/17/18) Hyperglycemia, unspecified (04/17/18) Surgical History (Last Reviewed 04/17/18 @ 17:18 by Aisha Helms MD) H/O umbilical hernia repair (Acute) H/O coronary angioplasty (Resolved) History of appendectomy (Resolved) History of cholecystectomy (Resolved) Medical History (Last Reviewed 04/17/18 @ 17:18 by Aisha Helms MD) 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) Thrombocytopenia (Chronic) Leukopenia (Chronic) Small cell lung cancer (Chronic) Renal insufficiency (Chronic) Coronary artery disease (Chronic) Depression (Chronic) Diabetes type 2, controlled (Chronic) Hyperlipidemia (Chronic) Hypertension (Chronic) Rheumatoid arthritis (Chronic) History of nephrolithotomy with removal of calculi (Resolved) History of pulmonary embolism (Resolved) Kidney stone (Resolved) Thrombophlebitis of arm, left (Resolved) UTI (urinary tract infection) (Inactive) Physical Therapy Inpatient Evaluation/Re-Eval M1 PT/OT-IP Prior Functional Status Start: 04/18/18 10:11 Freq: NEEDED Status: Active Protocol: Document 04/18/18 09:45 (Rec: 04/18/18 11:00 [id number]) Medical Review Prior Functional Status Medical History Reviewed Yes Communication Pt is KEWEENAW. He is able to make needs known Mobility and Gait Pt's stated that pt is independent with all mobilities and amb without AD indoors prior to his first hospitalization at 03/30/18 . However, pt presented progressive weakness and multiple episodes of syncope since D/C 04/02/18. Pt's stated pt tends to unable to stand >45 secs, otherwise he will just fall due to weakness . Activities of Daily Living and IADL's Pt's helped showering, dressing and toileting due to his progressive weakness since last D/C. Pt required CGA for all mobility at home. Social History Household Members significant other Living Arrangements Apartment/Condo Number of Floors (Floors) One Floor Number of Stairs To Enter/Railing? 16 NIKKI Home Environment Standard Height Toilet Tub/Shower Home Equipment Front Wheel Walker Shower Seat with Backrest Grab Bars In Shower Employment Status Retired Additional Social History Comment Patient had apparently had two episodes of tremors when he was at PCP office. Patient has history of Metastatic Malignant Neoplasm to the lung , and has been getting treatment for this. Patient carries diagnosis of Pneumonia . Spoke to Vanessa, she is significant other that lives with patient in a apt on 2nd floor with 16 NI[address]. She is his primary caregiver as well, helps with showers, toileting, dressing as needed. Patient does use a walker at home. M2 PT-IP Current Condition Start: 04/18/18 10:11 Freq: NEEDED Status: Active Protocol: Document 04/18/18 09:45 (Rec: 04/18/18 11:00 [id number]) Physical Therapy Current Condition Current Condition Evaluation Date 04/18/17 Treatment Diagnosis syncope, difficulty in walking , generalized muscle weakness Onset Date 04/17/17 Weight Bearing Status Weight Bearing Status Weight Bear as Tolerated M3 PT-IP Subjective Start: 04/18/18 10:11 Freq: NEEDED Status: Active Protocol: Document 04/18/18 09:45 HH (Rec: 04/18/18 11:00 [id number]) Subjective Physical Therapy Visit Type Type Initial Evaluation Visit Start Time 09:45 Visit Stop Time 10:25 Total Visit Minutes 40 Notes RN reports Pt has getting OOB last night to void with urinal . Pt's and friend at bedside upon assessment. Pt requested to go to bathroom for toileting. Number of WEB ARCHITECT Visits 0 Physical Therapy Visit Comments Patient Comments I want to go to bathroom now. Patient Goals to return home when stable and cont oncology treatment. Therapy Pain Assessment Pain Present Pain Present Denied Pain M4 PT-IP Mobility and Gait Start: 04/18/18 10:11 Freq: NEEDED Status: Active Protocol: Document 04/18/18 09:45 HH (Rec: 04/18/18 11:00 [id number]) PT-Bed Mobility Assessment Rolling Level of Assist Contact Guard Assistance Supine to Sit Supine to Sit Contact Guard Assistance Head of Bed Elevated Bedrails Sit to Supine Sit to Supine Contact Guard Assistance Scooting Scooting to Edge of Bed Contact Guard Assistance Scooting Up and Down in Bed Contact Guard Assistance PT-Transfer Assessment Sit to and From Stand Sit to and from Stand Minimal Assistance Equipment Transfer Assistive Device Bed Rail Gait Belt Front Wheeled Walker Transfers Transfer Destination Bed Chair Toilet Wheelchair Transfer Technique Stand Step Pivot Transfer Ability Level of Assist Minimal Assistance Comments Mobility Comments Supine BP 135/85 HR 107 standing after 1 min BP 80/64 HR 104 Pt requested to go to bathroom for toileting upon assessment . Pt was able to perform bed mobility with CGA and min A for sit to stand and stand step pivot transfer. Pt appears very impulsive for mobility and poor safety awareness. Pt requires max cues to keep FWW close to his body and hand placements on chair armrest during stand to sit. Pt also tends to leave his walker on the side while turning. Gait Assessment Gait Gait Assistance Required: Minimum Assistance Assistive Devices Assistive Device Gait Belt Front Wheeled Walker Gait Deviations General Gait Pattern Decreased Stride Length Decreased Feet Clearance Factors Limiting Gait Function Factors Limiting Gait Function Decreased Activity Tolerance Decreased Strength Difficulty Following Directions Poor Balance Poor Safety Awareness Comments Gait Comments Pt amb from EOB to bathroom and to room door with FWW min A. Pt was very impulsive during mobility who tends to leave his walker on the side while turning. Pt required max cue to keep his walker close to his body and guidance for direcitonal guidance. Pt intermitently lean with his forearms against walker for rest. In addition, Pt presents LOB and signs of syncope walking towards the room door. Pt called out down, down, down along with decreased alertness for 30 seconds and required 3 person assist with Nursing staff to safely transfer him back to w/c. Stair Climbing Assessment Comments Stair Climbing Comments did not attempt PT-Balance Assessment Sitting Balance and Reactions Static Sitting Balance Ability Normal Dynamic Sitting Balance Ability Good Standing Balance and Reactions Static Standing Balance Ability Fair Dynamic Standing Balance Ability Poor M5 PT-IP Objective Assessments Start: 04/18/18 10:11 Freq: NEEDED Status: Active Protocol: Document 04/18/18 09:45 (Rec: 04/18/18 11:00 [id number]) Orientation Orientation/Cognition Level of Alertness Alert Orientation Name Age Birthday Month Date Year Day of Week Place Situation Language Function Ability No Deficits Noted Safety Awareness Understands Safety Issues Memory Description No Deficits Noted Gross Range of Motion Upper Extremity ROM Assessment Within Functional Limits Lower Extremity ROM Assessment Within Functional Limits Strength Upper Extremity Strength Assessment Within Functional Limits Lower Extremity Strength Assessment Within Functional Limits Coordination Assessment Gross Coordination Gross Coordination WNL Sensation Assessment Sensation Gross Sensation WNL M6 PT-IP Treatment Start: 04/18/18 10:11 Freq: NEEDED Status: Active Protocol: Document 04/18/18 09:45 (Rec: 04/18/18 11:00 [id number]) Physical Therapy Treatment Exercises Exercises Ankle Pumps Gluteal Sets Quad Sets Heel Slides Straight Leg Raises Education Education Provided Safety M7 PT-IP Assessment and Plan Start: 04/18/18 10:11 Freq: NEEDED Status: Active Protocol: Document 04/18/18 09:45 (Rec: 04/18/18 11:00 [id number]) PT Summary Assessment and Plan Potential Rehabilitation Potential Fair Status of Condition at Evaluation Unstable Summary Impairments Strength Balance Bed Mobility Transfers Gait Activity Tolerance Assessment Summary Pt is a 78 yo male who is status post radiation to the lung and prophylactic radiotherapy to the brain. Pt has PMH significant small carcinoma and metastatic prostate cancer. Pt's reports pt presents increased overall weakness and had multiple episodes of seizures and syncope since last admission. Pt presents very impulsive during mobility and require min A and max cues for safety awareness. Pt tends to disregard his body position and surrounding obstacles during mobility which increases fall risks significantly. Pt had a syncope episode towards the end of tx session who required 3 person assist to safely transfer him back to chair for recovery. Pt appears decreased alertness and confused for 1 minute but was able to return to bed with min A. Pt presents significant OHTN 136/85 --> 80/64 (sit to stand). RN recommended pt not to get OOB until MD's follow up due to his aforementioned OHTN. Pt and his [facility] [place] [facility]. Goals Bed Mobility Goal Independent Contact Guard Assistance Transfer Goal Contact Guard Assistance Gait Goal Contact Guard Assistance Gait Distance 50 Other Goals 20 steps with railings Days to Meet Goals 5 Frequency of Treatment Frequency Of Treatment Once a Day Treatment Plan Physical Therapy Treatment Plan Bed Mobility Training Transfer Training Gait Training Therapeutic Exercise Balance Retraining Discharge Planning Other Recommendations and Next Treatment close monitoring of BP before Focus mobility check with RN regarding pt's status bed mob, transfer training, gait training as tiffany Recommendations To Nursing Amount of Assist Needed 1 Person Assist Discharge Recommendations PT Discharge Recommendations Acute Rehab Other Discharge Recommendations Pt and his are now [facility] [place] [facility]
--- NOTE | 2018-04-18 12:09 | PM.PN.1 ---
Subjective Date Patient Seen: 04/18/18 Interval history: Patient is a 78-year-old male who was admitted to the hospitalist night for her current syncope. Patient was up with PT today. He was noted to be markedly orthostatic. The patient's blood pressure dropped to 80 systolic when standing he was noted to be markedly dizzy shaky in nearly passed out. According to his significant other and friends he has had recurring episodes for several months. It appears that symptoms have gotten progressively worse over the past few days. He has no shortness of breath. No cough. Patient is anxious to return home. Exam Vital Signs (past 8 hours): - 04/18/18 04:48 04/18/18 07:50 04/18/18 09:20 Temperature 97.5 F L 97.6 F Pulse Rate 77 70 Respiratory Rate 20 20 Blood Pressure 127/92 H 181/107 H Pulse Oximetry 99 98 97 Oxygen Delivery Method Room Air Oxygen Flow Rate 0 Narrative Exam Narrative: Ill appearing male in no acute distress Lungs: Decreased breath sounds bilaterally but no rhonchi crackles or wheezes Cardiac exam: Regular rate rhythm normal S1-S2 Abdomen: Soft nontender nondistended without a prior appreciable hepatosplenomegaly Extremities: No edema Skin: Abrasion on the left forearm, multiple areas of dry raised scaly skin on the left hip. Objective Labs Result Diagrams: 04/18/18 04:58 04/18/18 04:58 Labs: Laboratory Results - last 24 hr 04/17/18 04/17/18 04/17/18 11:55 11:55 14:12 WBC RBC Hgb Hct MCV MCH MCHC RDW Plt Count Neut % (Auto) Lymph % (Auto) [place] % (Auto) Eos % (Auto) Baso % (Auto) Total Counted Seg Neutrophils % Band Neutrophils % Lymphocytes % (Manual) Monocytes % (Manual) Neutrophils # (Manual) Nucleated RBCs RBC Morphology Poikilocytosis Sodium 136 L Potassium 4.5 Chloride 99 Carbon Dioxide 23 BUN 45 H Creatinine 1.00 Estimated GFR > 60.0 BUN/Creatinine Ratio 45.0 H Glucose 290 H Lactate 2.1 Calcium 9.4 Total Bilirubin 1.0 AST 28 ALT 24 Alkaline Phosphatase 49 Total Creatine Kinase 24 L CK-MB (CK-2) TNP CK-MB (CK-2) Rel Index TNP Troponin I 0.040 H C-Reactive Protein B-Natriuretic Peptide 288 H Total Protein 5.8 L Albumin 3.6 Globulin 2.2 Albumin/Globulin Ratio 1.6 Prolactin Urine Ictotest Urine RBC Urine WBC Ur Squamous Epith Cells Uric Acid Crystals Amorphous Sediment Urine Bacteria Ur Culture Indicated? Micro UA Comment 04/17/18 04/17/18 04/17/18 14:16 14:16 16:20 WBC RBC Hgb Hct MCV MCH MCHC RDW Plt Count Neut % (Auto) Lymph % (Auto) [place] % (Auto) Eos % (Auto) Baso % (Auto) Total Counted Seg Neutrophils % Band Neutrophils % Lymphocytes % (Manual) Monocytes % (Manual) Neutrophils # (Manual) Nucleated RBCs RBC Morphology Poikilocytosis Sodium Potassium Chloride Carbon Dioxide BUN Creatinine Estimated GFR BUN/Creatinine Ratio Glucose Lactate Calcium Total Bilirubin AST ALT Alkaline Phosphatase Total Creatine Kinase CK-MB (CK-2) CK-MB (CK-2) Rel Index Troponin I 0.027 C-Reactive Protein B-Natriuretic Peptide Total Protein Albumin Globulin Albumin/Globulin Ratio Prolactin Urine Ictotest Negative Urine RBC 5-10/hpf H Urine WBC 0-1/hpf Ur Squamous Epith Cells 0-1 /hpf Uric Acid Crystals Few Amorphous Sediment 1+ Urine Bacteria None seen Ur Culture Indicated? Cult not indicated Micro UA Comment Not Reportable 04/17/18 04/17/18 04/18/18 17:20 17:20 04:58 WBC 7.3 RBC 3.77 L Hgb 12.8 L Hct 37.0 L MCV 97.9 MCH 34.0 MCHC 34.7 RDW 14.9 H Plt Count 72 L Neut % (Auto) Not Reportable Lymph % (Auto) Not Reportable [place] % (Auto) Not Reportable Eos % (Auto) Not Reportable Baso % (Auto) Not Reportable Total Counted 100 Seg Neutrophils % 81.0 H Band Neutrophils % 4.0 Lymphocytes % (Manual) 7.0 L Monocytes % (Manual) 8.0 Neutrophils # (Manual) 6205 H Nucleated RBCs 1 H RBC Morphology See below Poikilocytosis 1+ H Sodium Potassium Chloride Carbon Dioxide BUN Creatinine Estimated GFR BUN/Creatinine Ratio Glucose Lactate Calcium Total Bilirubin AST ALT Alkaline Phosphatase Total Creatine Kinase CK-MB (CK-2) CK-MB (CK-2) Rel Index Troponin I C-Reactive Protein < 0.5 B-Natriuretic Peptide 301 H Total Protein Albumin Globulin Albumin/Globulin Ratio Prolactin 10.2 Urine Ictotest Urine RBC Urine WBC Ur Squamous Epith Cells Uric Acid Crystals Amorphous Sediment Urine Bacteria Ur Culture Indicated? Micro UA Comment 04/18/18 04:58 WBC RBC Hgb Hct MCV MCH MCHC RDW Plt Count Neut % (Auto) Lymph % (Auto) [place] % (Auto) Eos % (Auto) Baso % (Auto) Total Counted Seg Neutrophils % Band Neutrophils % Lymphocytes % (Manual) Monocytes % (Manual) Neutrophils # (Manual) Nucleated RBCs RBC Morphology Poikilocytosis Sodium 137 Potassium 4.1 Chloride 100 Carbon Dioxide 28 BUN 36 H Creatinine 0.90 Estimated GFR > 60.0 BUN/Creatinine Ratio 40.0 H Glucose 206 H Lactate Calcium 8.6 Total Bilirubin 1.0 AST 24 ALT 33 Alkaline Phosphatase 49 Total Creatine Kinase CK-MB (CK-2) CK-MB (CK-2) Rel Index Troponin I 0.041 H C-Reactive Protein B-Natriuretic Peptide Total Protein 5.2 L Albumin 3.1 L Globulin 2.1 Albumin/Globulin Ratio 1.5 Prolactin Urine Ictotest Urine RBC Urine WBC Ur Squamous Epith Cells Uric Acid Crystals Amorphous Sediment Urine Bacteria Ur Culture Indicated? Micro UA Comment Assessment & Plan (1) Syncope: Problem details: Patient has had multiple episodes associated with weakness, shaking, and confusion. He has not passed out. Initially this was thought to be related to whole-brain radiation radiation and or adrenal insufficiency. Differential diagnosis includes syncope, adrenal insufficiency, seizure disorder, versus metastatic disease to the brain. At this time will obtain a head MRI. Will obtain orthostatic vital signs. Will continue his steroids but tapered accordingly. In addition consider starting an antiepileptic medication should the patient continued to have multiple recurrence episodes. Qualifiers: Encounter type: Syncope type: Current visit: Yes Status: Acute (2) Prostate cancer metastatic to bone: Problem details: Present on admission, acute Current visit: No Status: Chronic (3) Small cell lung cancer: Problem details: Present on admission, acute Current visit: No Status: Chronic (4) Pneumonia: Problem details: Patient has improved significantly. Will continue IV antibiotics and switched to p.o. within the next 48 hr. Pneumonia, present on admission, acute, etiology unclear Qualifiers: Aspiration pneumonia type: Laterality: left Lung location: Pneumonia type: due to unspecified organism Current visit: No Status: Acute (5) Hyperglycemia: Problem details: Hyperglycemia, present on admission, acute suspect secondary to steroids. Anticipate improvement of hyperglycemia with tapering of steroids. Current visit: No Status: Acute (6) Adrenal insufficiency: Problem details: Patient has adrenal insufficiency which is a known side effect of Zytiga. The Zytiga has been discont and taper prednisone. Will continue to monitor his orthostatic hypotension as well. The patient is on high-dose steroids. Will start Florinef in taper prednisone Current visit: Yes Status: Acute (7) Rheumatoid arthritis: Problem details: Patient will continue methotrexate 10 mg weekly Present on admission chronic Current visit: Yes Status: Acute (8) Orthostatic hypotension: Problem details: Present on admission, acute Will treat as above. Current visit: Yes Status: Acute
[2018-04-18] MEDS: FLUDROCORTISONE 0.1 MG TABLET PO (12:13)
[2018-04-18] MEDS: predniSONE 20 MG TABLET 40 MG PO (12:13)
--- NOTE | 2018-04-18 12:15 | OT.IP.TRT ---
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 (04/17/18) Atherosclerotic heart disease of [place] coronary artery without angina pectoris (04/17/18) Orthostatic hypotension (04/17/18) Pneumonia, unspecified organism (04/17/18) Rheumatoid arthritis, unspecified (04/17/18) Syncope and collapse (04/17/18) Hyperglycemia, unspecified (04/17/18) Occupational Therapy Treatment Note M3 OT- IP Subjective and Pain Start: 04/18/18 14:49 Freq: Status: Active Protocol: Document 04/18/18 12:15 CRIS (Rec: 04/18/18 14:51 CRIS [id number]) OT- Subjective Occupational Therapy Visit Type Type Administrative Note Visit Start Time 12:15 Notes OT evaluation attempted, but pt orthostatic with P.T. earlier this AM with near syncopal episode after walking to doorway of room. Pt had second episode in bathroom later. MD has ordered medication changes and pt on hold for out of bed activity at this time. Will attempt OT eval again in AM as medical status permits. No charge.
--- NOTE | 2018-04-18 14:14 | PC.NURSE ---
Near syncopy: PT in to see patient this am, Near syncopy at the door of his room and he had to be wheelchaired back to bed. Sitting bp 136/88 p 79. Pt stood at bedside, was only able to tolerate a minute. Standing bp 80/64 p 104. Having rt arm twitching, pt having a hard time communicating and was slurring his words at times. Incident called to Dr. Helms who reviewed pt's medication regime and adjusted his meds. First dose of florinef given po. Pt was told to stay in bed and give med time to work. However apparently he/patient talked his SO and the WORLD RENOWNED CHEF AND RESTAURANT OWNER into taking him to the bathroom where he had another near syncopal episode. Staff emergency called and patient was assisted back to bed with the help of physical therapy. BP then was 147/92 p 71. Pt was again having twitching of the rt arm and some slurring of words. The twitching and the slurring did stop. Currently he is resting quietly in bed. Patients recording clerk are equal, tongue in the midline. legs w/equal weakness. Cont w/poc.
--- NOTE | 2018-04-18 15:41 | CM.DPC ---
DCP Cont: After reading notes on patient, noted that he has approximately 16 stairs to climb up to get to apartment. Patient received home health when he was discharged in March, and noted that it was [facility]. Called Em at [facility], and updated her on condition. She stated that he is still under their service, as they re-certified him last Monday. Stated that he would just need a resumption of care. Let her know that she would be updated when patient gets closer to discharge. P: DCP to continue to follow. Likely home with resumption of P.T/O.T. through [facility]. Mireya Lobo RN/Missile Mechanic
--- NOTE | 2018-04-18 18:08 | PC.NURSE ---
Addendum entered by Kinza Hardy R.N. 04/18/18 22:01: Late entry- this business writer noted yellowish sclera, along with slight yellowish skin to face and head. Original Note: Addendum entered by Kinza Hardy R.N. 04/18/18 21:58: rooming in. Pt with own CPAP for sleep. 975mL urine out this shift. Pt alert and oriented throughout shift, no lightheadedness or dizziness. Original Note: 1700- Wound Dr. in to see pt, and debride and dress the two scabed wounds to pt's left hip/flank area. Lg one is 1x1.6x0.1, not fully debrided, sm is 0.5x0.5x0.1, fully debrided, duoderm placed and Dr will see pt in two days to further debride the Lg one. Left upper arm drsg changed and replaced with duoderm, 3 sites of skin tear covered with one drsg. brought iraida mckinley to pt for dinner. RFA SL, A/O x3, 96%RA, call light in reach and bed alarm on for safety.
[2018-04-18] MEDS: ATORVASTATIN 20 MG TABLET 40 MG PO (20:16)
[2018-04-19] VITALS (10 sets, daily range): BP systolic 104–196; BP diastolic 70–120; PULSE 61–120; RESP 18; TEMP 36.6–36.9; O2SAT 70–98
--- NOTE | 2018-04-19 05:11 | PC.NURSE ---
Pt had a high blood pressure 196/120, I rechecked his BP for the third time and it gone down to 158/87 P:69. Notified SALES SUPPORT MANAGER, he ordered orthostatic BP. When pt stood up, he felt he was going down and reports he felt dizzy. I assisted him back to bed. per SALES SUPPORT MANAGER orders, keep pt bedrest and keep HOB 30 degrees. call light in reach. bed alarm active. family at bedside.
[2018-04-19] MEDS: CEFEPIME 2 GM in SODIUM CHLORIDE 0.9% 100 ML 200 ML IV (06:19)
[2018-04-19] MEDS: PANTOPRAZOLE 20 MG TABLET PO (06:23)
[2018-04-19] MEDS: RIVAROXABAN 10 MG TABLET 20 MG PO (08:35)
[2018-04-19] MEDS: METFORMIN HCL 500 MG TABLET PO ×2 (08:35→17:21)
[2018-04-19] MEDS: CITALOPRAM 10 MG TABLET PO (08:35)
[2018-04-19] MEDS: FOLIC ACID 0.4 MG TABLET 0.8 MG PO (08:35)
[2018-04-19] MEDS: MULTIVITAMIN 1 TABLET 1 TAB PO (08:36)
[2018-04-19] MEDS: predniSONE 20 MG TABLET 40 MG PO (08:36)
[2018-04-19] MEDS: CHOLECALCIFEROL (VITAMIN D3) 1,000 UNIT TABLET 2000 UNIT PO (08:36)
[2018-04-19] MEDS: DOCUSATE 100 MG CAPSULE PO ×2 (08:36→20:23)
[2018-04-19] MEDS: INSULIN ASPART 100 UNIT/ML INSULN PEN SUBCUT ×4 (08:38→20:22)
--- NOTE | 2018-04-19 10:32 | PM.PN.1 ---
Subjective Date Patient Seen: 04/19/18 Interval history: Patient continues to have symptomatic hypotension. Upon standing today his blood pressure dropped from 140 systolic to 107 systolic. Heart rate went from the 80s to 95. Patient was unable to stand for more than 2 min. He became shaky and nearly syncopal. Patient was started on Florinef yesterday. He developed supine hypertension. This medication has since been discontinued. He has no complaints of shortness of breath or chest pain Exam Vital Signs (past 8 hours): - 04/19/18 03:00 04/19/18 05:08 04/19/18 08:00 Temperature 97.9 F 97.8 F Pulse Rate 61 63 Pulse Rate [Orthostatic Lying] 69 Pulse Rate [Orthostatic Sitting] 88 Pulse Rate [Orthostatic Standing] 100 H Respiratory Rate 18 18 Blood Pressure 196/120 H 181/116 H Blood Pressure [Orthostatic Lying] 158/87 H Blood Pressure [Orthostatic Sitting] 126/92 H Blood Pressure [Orthostatic Standing] 109/83 Pulse Oximetry 98 97 04/19/18 09:30 Temperature Pulse Rate Pulse Rate [Orthostatic Lying] Pulse Rate [Orthostatic Sitting] Pulse Rate [Orthostatic Standing] Respiratory Rate Blood Pressure Blood Pressure [Orthostatic Lying] Blood Pressure [Orthostatic Sitting] Blood Pressure [Orthostatic Standing] Pulse Oximetry 98 Oxygen Delivery Method Room Air Oxygen Flow Rate 0 Narrative Exam Narrative: Pleasant gentleman resting comfortably in no obvious distress Lungs: Decreased breath sounds but clear to auscultation Cardiac exam: Regular rate and rhythm normal S1-S2 Abdomen: Soft nontender nondistended Extremities: No edema Left arm with bandage in place, left hip with bandage in place, wound care consult appreciate Objective Labs Result Diagrams: 04/18/18 04:58 04/18/18 04:58 Assessment & Plan (1) Orthostatic hypotension: Problem details: Present on admission, acute Patient did not tolerate Florinef. Coreg and Cardura have since been discontinued. Will try midodrine today to see if we can get improvement. Will need to monitor supine blood pressure closely. If he continues to be hypertensive will need to discontinue midodrine as well. Jobst stockings have been ordered. Would consider abdominal binders well. Current visit: Yes Status: Acute (2) Adrenal insufficiency: Problem details: Patient has adrenal insufficiency which is a known side effect of Zytiga. The Zytiga has been discont and taper prednisone. Will continue to monitor his orthostatic hypotension as well. The patient is on high-dose steroids. Will start Florinef in taper prednisone Current visit: Yes Status: Acute (3) CAD (coronary artery disease): Problem details: No active evidence of coronary disease. Will continue to trend troponin given mild elevation Current visit: Yes Status: Acute (4) Hyperglycemia: Problem details: Hyperglycemia, present on admission, acute suspect secondary to steroids. Anticipate improvement of hyperglycemia with tapering of steroids. Will continue sliding scale of insulin and metformin. Current visit: No Status: Acute (5) Pneumonia: Problem details: Patient has improved significantly. Will switch IV antibiotics to oral at this time. Anticipate a 5 to seven-day course of antibiotic Qualifiers: Aspiration pneumonia type: Laterality: left Lung location: Pneumonia type: due to unspecified organism Current visit: No Status: Acute (6) Syncope: Problem details: Syncope, present on admission. Secondary to orthostatic hypotension. Suspect related to adrenal insufficiency. Will continue steroid taper. Will attempt midodrine today. Will monitor blood pressure closely. Will defer salt tablets at this time. Job stockings have been ordered. Consider abdominal binder if unable to obtain job stockings. Qualifiers: Encounter type: Syncope type: Current visit: Yes Status: Acute (7) Metastatic malignant neoplasm to prostate: Problem details: He has metastatic prostate cancer with a high Tanisha score. His PSA is undetectable. He will be due for Lupron injection in April. He will hold the Zytiga Current visit: No Status: Chronic (8) Small cell lung cancer: Problem details: Present on admission, acute Current visit: No Status: Chronic (9) Rheumatoid arthritis: Problem details: Patient will continue methotrexate 10 mg weekly Present on admission chronic Current visit: Yes Status: Acute
--- NOTE | 2018-04-19 11:00 | CM.DPC ---
Addendum entered by Mireya Lobo R.N. 04/19/18 11:31: Reached out to significant other, Vanessa. She is appreciative of care, and is glad that hospitalist is attempting to work on getting patient's blood pressures stable. She confirmed that patient had been working with [facility], and the therapist is the one who had noted the syncopial episode. Original Note: DCP Cont: Discussed patient at team rounds. At this time, patient is unstable with his blood pressures. When he stands, his blood pressure drops, and when he lays down his blood pressure goes up. Dr. Helms is trying to get his blood pressures stable, at this time. Anticipate that patient will be here for a couple more days. P: DCP to continue to follow closely. May be able to resume [facility] when home, but patient is not yet medically stable. Mireya Lobo RN/Weatherization Operations Manager
[2018-04-19] MEDS: levoFLOXacin 500 MG TABLET PO (11:15)
[2018-04-19] MEDS: CALCIUM CARBONATE 600 MG TABLET 1200 MG PO (11:15)
[2018-04-19] MEDS: MIDODRINE HCL 5 MG TABLET PO ×2 (11:15→17:21)
--- NOTE | 2018-04-19 11:41 | OT.IP.TRT ---
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 (04/17/18) Atherosclerotic heart disease of [place] coronary artery without angina pectoris (04/17/18) Orthostatic hypotension (04/17/18) Pneumonia, unspecified organism (04/17/18) Rheumatoid arthritis, unspecified (04/17/18) Syncope and collapse (04/17/18) Hyperglycemia, unspecified (04/17/18) Occupational Therapy Treatment Note M3 OT- IP Subjective and Pain Start: 04/18/18 14:49 Freq: Status: Active Protocol: Document 04/19/18 11:37 [facility] (Rec: 04/19/18 11:41 [facility] [id number]) OT- Subjective Occupational Therapy Visit Type Type Patient Unavailable Notes Per nursing to Hold therapy and once determined medically stable may be okay to get up later this PM. Therefore check on pt tomorrow. On last admission 03/31/18, pt and adamantly refused OT eval , therefore to check again to see if OT is needed.
--- NOTE | 2018-04-19 11:46 | PM.CN ---
History of Present Illness Chief complaint: Seizures [facility] Medical History 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) Thrombocytopenia (Chronic) Leukopenia (Chronic) Small cell lung cancer (Chronic) Renal insufficiency (Chronic) Coronary artery disease (Chronic) Depression (Chronic) Diabetes type 2, controlled (Chronic) Hyperlipidemia (Chronic) Hypertension (Chronic) Rheumatoid arthritis (Chronic) History of nephrolithotomy with removal of calculi (Resolved) History of pulmonary embolism (Resolved) Kidney stone (Resolved) Thrombophlebitis of arm, left (Resolved) UTI (urinary tract infection) (Inactive) Surgical History H/O umbilical hernia repair (Acute) H/O coronary angioplasty (Resolved) History of appendectomy (Resolved) History of cholecystectomy (Resolved) Family History: Reviewed 04/17/18 by Aisha Helms MD Social History household members: significant other Smoking Status: Former smoker alcohol intake: never Meds Home Medications Medication Instructions Recorded Confirmed Type atorvastatin [Lipitor] 40 mg PO BEDTIME #0 03/21/17 04/17/18 History ascorbic acid (vitamin C) 1,500 mg PO DAILY #0 06/01/17 04/17/18 History calcium carbonate 1,200 mg PO Q DAY #0 06/01/17 04/17/18 History cholecalciferol (vitamin D3) 2,000 iu PO QDAY #0 06/01/17 04/17/18 History [Vitamin D3] magnesium 200 mg PO Q DAY #0 06/01/17 04/17/18 History multivitamin [Multiple Vitamins] 1 tab PO QDAY #0 06/01/17 04/17/18 History methotrexate sodium 10 mg PO QWEEK 09/12/17 04/17/18 History nitroglycerin [Nitrostat] 0.4 mg SUBLINGUAL [id number] PRN #30 10/01/17 04/17/18 Rx tab metformin 500 mg PO BID 01/02/18 04/17/18 History rivaroxaban [Xarelto] 20 mg PO DAILY #90 tab 02/07/18 04/17/18 Rx carvedilol 6.25 mg PO BID 02/22/18 04/17/18 History citalopram 10 mg PO BEDTIME 02/22/18 04/17/18 History doxazosin 8 mg PO BEDTIME 02/22/18 04/17/18 History folic acid 0.8 mg PO DAILY 02/22/18 04/17/18 History mupirocin calcium [Bactroban] 1 applic TOPICAL BEDTIME 03/29/18 04/17/18 History timolol 1 dose EYE-LEFT BID 03/29/18 04/17/18 History hydrocortisone 40 mg PO BID 04/11/18 04/17/18 History Probiotic 1 cap PO BID 04/17/18 04/17/18 History omeprazole 20 mg PO DAILY 04/17/18 04/17/18 History prednisone 40 mg PO BID 04/17/18 04/17/18 History Allergies Allergy/AdvReac Type Severity Reaction Status Date / Time chlorthalidone Allergy Verified 04/17/18 11:57 hydroxychloroquine Allergy Verified 04/17/18 11:57 [From Plaquenil] niacin [NIACIN] AdvReac Severe Hypotension Verified 04/17/18 11:57 amlodipine [AMLODIPINE] AdvReac Unknown Verified 04/17/18 11:57 gemfibrozil [GEMFIBROZIL] AdvReac Unknown Verified 04/17/18 11:57 hydrochlorothiazide AdvReac Unknown Verified 04/17/18 11:57 [HYDROCHLOROTHIAZIDE] lisinopril [LISINOPRIL] AdvReac Unknown Verified 04/17/18 11:57 Review of Systems Constitutional Constitutional: Denies anorexia, Denies chills, Denies excessive sweating, Denies fatigue, Denies fever(s), Denies malaise, Denies poor appetite and Denies weight loss Cardiovascular Cardiovascular: Denies foot swelling, Denies leg pain with activity and Denies leg swelling Integumentary/Breasts Skin/Breast: Denies non-healing lesions, Denies erythema, Denies skin pain, Denies skin swelling, Denies skin ulcer, Denies wounds and Denies other (drainage) Endocrine Endocrine: Denies excessive sweating and Denies fatigue Exam Vital Signs (past 8 hours): - 04/19/18 05:08 04/19/18 08:00 04/19/18 09:30 Temperature 97.8 F Pulse Rate 63 Pulse Rate [Orthostatic Lying] 69 Pulse Rate [Orthostatic Sitting] 88 Pulse Rate [Orthostatic Standing] 100 H Respiratory Rate 18 Blood Pressure 181/116 H Blood Pressure [Orthostatic Lying] 158/87 H Blood Pressure [Orthostatic Sitting] 126/92 H Blood Pressure [Orthostatic Standing] 109/83 Pulse Oximetry 97 98 Oxygen Delivery Method Room Air Oxygen Flow Rate 0 Objective Labs Result Diagrams: 04/18/18 04:58 04/18/18 04:58
--- NOTE | 2018-04-19 12:04 | P.CONS_ITS ---
History of Present Illness Chief complaint: Seizures [facility] Medical History 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) Thrombocytopenia (Chronic) Leukopenia (Chronic) Small cell lung cancer (Chronic) Renal insufficiency (Chronic) Coronary artery disease (Chronic) Depression (Chronic) Diabetes type 2, controlled (Chronic) Hyperlipidemia (Chronic) Hypertension (Chronic) Rheumatoid arthritis (Chronic) History of nephrolithotomy with removal of calculi (Resolved) History of pulmonary embolism (Resolved) Kidney stone (Resolved) Thrombophlebitis of arm, left (Resolved) UTI (urinary tract infection) (Inactive) Surgical History H/O umbilical hernia repair (Acute) H/O coronary angioplasty (Resolved) History of appendectomy (Resolved) History of cholecystectomy (Resolved) Family History: Reviewed 04/17/18 by Aisha Helms MD Social History household members: significant other Smoking Status: Former smoker alcohol intake: never Meds Home Medications Medication Instructions Recorded Confirmed Type atorvastatin [Lipitor] 40 mg PO BEDTIME #0 03/21/17 04/17/18 History ascorbic acid (vitamin C) 1,500 mg PO DAILY #0 06/01/17 04/17/18 History calcium carbonate 1,200 mg PO Q DAY #0 06/01/17 04/17/18 History cholecalciferol (vitamin D3) 2,000 iu PO QDAY #0 06/01/17 04/17/18 History [Vitamin D3] magnesium 200 mg PO Q DAY #0 06/01/17 04/17/18 History multivitamin [Multiple Vitamins] 1 tab PO QDAY #0 06/01/17 04/17/18 History methotrexate sodium 10 mg PO QWEEK 09/12/17 04/17/18 History nitroglycerin [Nitrostat] 0.4 mg SUBLINGUAL [id number] PRN #30 10/01/17 04/17/18 Rx tab metformin 500 mg PO BID 01/02/18 04/17/18 History rivaroxaban [Xarelto] 20 mg PO DAILY #90 tab 02/07/18 04/17/18 Rx carvedilol 6.25 mg PO BID 02/22/18 04/17/18 History citalopram 10 mg PO BEDTIME 02/22/18 04/17/18 History doxazosin 8 mg PO BEDTIME 02/22/18 04/17/18 History folic acid 0.8 mg PO DAILY 02/22/18 04/17/18 History mupirocin calcium [Bactroban] 1 applic TOPICAL BEDTIME 03/29/18 04/17/18 History timolol 1 dose EYE-LEFT BID 03/29/18 04/17/18 History hydrocortisone 40 mg PO BID 04/11/18 04/17/18 History Probiotic 1 cap PO BID 04/17/18 04/17/18 History omeprazole 20 mg PO DAILY 04/17/18 04/17/18 History prednisone 40 mg PO BID 04/17/18 04/17/18 History Allergies Allergy/AdvReac Type Severity Reaction Status Date / Time chlorthalidone Allergy Verified 04/17/18 11:57 hydroxychloroquine Allergy Verified 04/17/18 11:57 [From Plaquenil] niacin [NIACIN] AdvReac Severe Hypotension Verified 04/17/18 11:57 amlodipine [AMLODIPINE] AdvReac Unknown Verified 04/17/18 11:57 gemfibrozil [GEMFIBROZIL] AdvReac Unknown Verified 04/17/18 11:57 hydrochlorothiazide AdvReac Unknown Verified 04/17/18 11:57 [HYDROCHLOROTHIAZIDE] lisinopril [LISINOPRIL] AdvReac Unknown Verified 04/17/18 11:57 Review of Systems Constitutional Constitutional: Denies anorexia, Denies chills, Denies excessive sweating, Denies fatigue, Denies fever(s), Denies malaise, Denies poor appetite and Denies weight loss Cardiovascular Cardiovascular: Denies foot swelling, Denies leg pain with activity and Denies leg swelling Integumentary/Breasts Skin/Breast: Denies non-healing lesions, Denies erythema, Denies skin pain, Denies skin swelling, Denies skin ulcer, Denies wounds and Denies other ( drainage) Endocrine Endocrine: Denies excessive sweating and Denies fatigue Exam Vital Signs (past 8 hours): - 04/19/18 05:08 04/19/18 08:00 04/19/18 09:30 Temperature 97.8 F Pulse Rate 63 Pulse Rate [Orthostatic Lying] 69 Pulse Rate [Orthostatic Sitting] 88 Pulse Rate [Orthostatic Standing] 100 H Respiratory Rate 18 Blood Pressure 181/116 H Blood Pressure [Orthostatic Lying] 158/87 H Blood Pressure [Orthostatic Sitting] 126/92 H Blood Pressure [Orthostatic Standing] 109/83 Pulse Oximetry 97 98 Oxygen Delivery Method Room Air Oxygen Flow Rate 0 Objective Labs Result Diagrams: 04/18/18 04:58 04/18/18 04:58
--- NOTE | 2018-04-19 12:15 | PT.IPTN ---
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 (04/17/18) Atherosclerotic heart disease of [place] coronary artery without angina pectoris (04/17/18) Orthostatic hypotension (04/17/18) Pneumonia, unspecified organism (04/17/18) Rheumatoid arthritis, unspecified (04/17/18) Syncope and collapse (04/17/18) Hyperglycemia, unspecified (04/17/18) Physical Therapy Treatment Note M2 PT-IP Current Condition Start: 04/18/18 10:11 Freq: NEEDED Status: Active Protocol: Document 04/18/18 09:45 [facility] (Rec: 04/18/18 11:00 [id number]) Physical Therapy Current Condition Current Condition Evaluation Date 04/18/17 Treatment Diagnosis syncope, difficulty in walking , generalized muscle weakness Onset Date 04/17/17 Weight Bearing Status Weight Bearing Status Weight Bear as Tolerated M3 PT-IP Subjective Start: 04/18/18 10:11 Freq: NEEDED Status: Active Protocol: Document 04/19/18 12:13 HH (Rec: 04/19/18 12:15 [id number]) Subjective Physical Therapy Visit Type Type Administrative Note Visit Start Time 11:00 Notes RN Elsy states Pt is on hold for PT due to his OHTN. She also states pt's BP went up to 190/130 last nigth. MD will follow up soon for his medical condition and D/C planning. Number of PLANT CONTROLLER Visits 0 M4 PT-IP Mobility and Gait Start: 04/18/18 10:11 Freq: NEEDED Status: Active Protocol: Document 04/18/18 09:45 HH (Rec: 04/18/18 11:00 [id number]) PT-Bed Mobility Assessment Rolling Level of Assist Contact Guard Assistance Supine to Sit Supine to Sit Contact Guard Assistance Head of Bed Elevated Bedrails Sit to Supine Sit to Supine Contact Guard Assistance Scooting Scooting to Edge of Bed Contact Guard Assistance Scooting Up and Down in Bed Contact Guard Assistance PT-Transfer Assessment Sit to and From Stand Sit to and from Stand Minimal Assistance Equipment Transfer Assistive Device Bed Rail Gait Belt Front Wheeled Walker Transfers Transfer Destination Bed Chair Toilet Wheelchair Transfer Technique Stand Step Pivot Transfer Ability Level of Assist Minimal Assistance Comments Mobility Comments Supine BP 135/85 HR 107 standing after 1 min BP 80/64 HR 104 Pt requested to go to bathroom for toileting upon assessment . Pt was able to perform bed mobility with CGA and min A for sit to stand and stand step pivot transfer. Pt appears very impulsive for mobility and poor safety awareness. Pt requires max cues to keep FWW close to his body and hand placements on chair armrest during stand to sit. Pt also tends to leave his walker on the side while turning. Gait Assessment Gait Gait Assistance Required: Minimum Assistance Assistive Devices Assistive Device Gait Belt Front Wheeled Walker Gait Deviations General Gait Pattern Decreased Stride Length Decreased Feet Clearance Factors Limiting Gait Function Factors Limiting Gait Function Decreased Activity Tolerance Decreased Strength Difficulty Following Directions Poor Balance Poor Safety Awareness Comments Gait Comments Pt amb from EOB to bathroom and to room door with FWW min A. Pt was very impulsive during mobility who tends to leave his walker on the side while turning. Pt required max cue to keep his walker close to his body and guidance for direcitonal guidance. Pt intermitently lean with his forearms against walker for rest. In addition, Pt presents LOB and signs of syncope walking towards the room door. Pt called out down, down, down along with decreased alertness for 30 seconds and required 3 person assist with Nursing staff to safely transfer him back to w/c. Stair Climbing Assessment Comments Stair Climbing Comments did not attempt PT-Balance Assessment Sitting Balance and Reactions Static Sitting Balance Ability Normal Dynamic Sitting Balance Ability Good Standing Balance and Reactions Static Standing Balance Ability Fair Dynamic Standing Balance Ability Poor M5 PT-IP Objective Assessments Start: 04/18/18 10:11 Freq: NEEDED Status: Active Protocol: Document 04/18/18 09:45 (Rec: 04/18/18 11:00 [id number]) Orientation Orientation/Cognition Level of Alertness Alert Orientation Name Age Birthday Month Date Year Day of Week Place Situation Language Function Ability No Deficits Noted Safety Awareness Understands Safety Issues Memory Description No Deficits Noted Gross Range of Motion Upper Extremity ROM Assessment Within Functional Limits Lower Extremity ROM Assessment Within Functional Limits Strength Upper Extremity Strength Assessment Within Functional Limits Lower Extremity Strength Assessment Within Functional Limits Coordination Assessment Gross Coordination Gross Coordination WNL Sensation Assessment Sensation Gross Sensation WNL M6 PT-IP Treatment Start: 04/18/18 10:11 Freq: NEEDED Status: Active Protocol: Document 04/18/18 09:45 HH (Rec: 04/18/18 11:00 [id number]) Physical Therapy Treatment Exercises Exercises Ankle Pumps Gluteal Sets Quad Sets Heel Slides Straight Leg Raises Education Education Provided Safety M7 PT-IP Assessment and Plan Start: 04/18/18 10:11 Freq: NEEDED Status: Active Protocol: Document 04/18/18 09:45 HH (Rec: 04/18/18 11:00 [id number]) PT Summary Assessment and Plan Potential Rehabilitation Potential Fair Status of Condition at Evaluation Unstable Summary Impairments Strength Balance Bed Mobility Transfers Gait Activity Tolerance Assessment Summary Pt is a 78 yo male who is status post radiation to the lung and prophylactic radiotherapy to the brain. Pt has PMG significant small carcinoma and metastatic prostate cancer. Pt's reports pt presents increased overall weakness and had multiple episodes of seizures and syncope since last admission. Pt presents very impulsive during mobility and require min A and max cues for safety awareness. Pt tends to disregard his body position and surrounding obstacles during mobility which creates fall risks. Pt had a syncope episode toward the end of tx session who required 3 person assist to safely transfer him back to chair for recovery. Pt appears decreased alertness and confused for 1 minute but was able to return to bed with min A. Pt presents significant OHTN. RN recommended pt cannot get OOB until MD's follow up due to his aforementioned OHTN. Pt and his are now considering to transfer pt to [facility] in [place] for further treatment. Goals Bed Mobility Goal Independent Contact Guard Assistance Transfer Goal Contact Guard Assistance Gait Goal Contact Guard Assistance Gait Distance 50 Other Goals 20 steps with railings Days to Meet Goals 5 Frequency of Treatment Frequency Of Treatment Once a Day Treatment Plan Physical Therapy Treatment Plan Bed Mobility Training Transfer Training Gait Training Therapeutic Exercise Balance Retraining Discharge Planning Other Recommendations and Next Treatment close monitoring of BP before Focus mobility check with RN regarding pt's status bed mob, transfer training, gait training as tiffany Recommendations To Nursing Amount of Assist Needed 1 Person Assist Discharge Recommendations PT Discharge Recommendations Acute Rehab Other Discharge Recommendations Pt and his are now considering to transfer pt to [facility] in [place] for further treatment
--- NOTE | 2018-04-19 14:55 | PT.IPTN ---
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 (04/17/18) Atherosclerotic heart disease of [place] coronary artery without angina pectoris (04/17/18) Orthostatic hypotension (04/17/18) Pneumonia, unspecified organism (04/17/18) Rheumatoid arthritis, unspecified (04/17/18) Syncope and collapse (04/17/18) Hyperglycemia, unspecified (04/17/18) Physical Therapy Treatment Note M2 PT-IP Current Condition Start: 04/18/18 10:11 Freq: NEEDED Status: Active Protocol: Document 04/18/18 09:45 HH (Rec: 04/18/18 11:00 HH [id number]) Physical Therapy Current Condition Current Condition Evaluation Date 04/18/17 Treatment Diagnosis syncope, difficulty in walking , generalized muscle weakness Onset Date 04/17/17 Weight Bearing Status Weight Bearing Status Weight Bear as Tolerated M3 PT-IP Subjective Start: 04/18/18 10:11 Freq: NEEDED Status: Active Protocol: Document 04/19/18 14:55 GGD (Rec: 04/19/18 14:55 GGD [id number]) Subjective Physical Therapy Visit Type Notes Hold per RN due to blood pressure. Recommendations To Nursing Amount of Assist Needed 1 Person Assist Discharge Recommendations PT Discharge Recommendations Acute Rehab Other Discharge Recommendations Pt and his are now considering to transfer pt to [facility] in [place] for further treatment
--- NOTE | 2018-04-19 15:56 | PC.NURSE ---
Orthostatics/Resp: See VS sheet for vs, posturals taken during the night. Pt had near syncopal episode this am on noc shift. See post. bp/p this am, pt only able to stand about 1 min and then had to sit back down. Dr. Helms called. See new orders. Midodrine started. This afternoon was less hypertensive on the bp/p but still only able to stay standing once for 30 sec, the second time he was only able to stand for 45 sec. Rt arm does become twitchy/has tremors. However he didn't have the problem slurring his words like he did yesterday. Mentally more awake and aware. Pt is unhappy he has had to stay at the hospital but he understands why. Cont w/poc.
[2018-04-19] MEDS: ATORVASTATIN 20 MG TABLET 40 MG PO (20:22)
[2018-04-20] VITALS (13 sets, daily range): BP systolic 114–189; BP diastolic 80–115; PULSE 63–107; RESP 16–20; TEMP 35.7–36.9; O2SAT 94–100
[2018-04-20] MEDS: PANTOPRAZOLE 20 MG TABLET PO (05:55)
[2018-04-20] MEDS: MIDODRINE HCL 5 MG TABLET PO ×3 (05:55→19:17)
--- NOTE | 2018-04-20 07:34 | PM.CN ---
History of Present Illness Date Patient Seen: 04/18/18 Time Patient Seen: 16:00 Chief complaint: Left hip and upper arm wounds. Reason for consult: Left hip and upper arm wounds Requesting provider: Aisha Helms Narrative: Wound #1: Location: L Hip Severity: Full thickness (post-debridement) Etiology: Surgical Context: s/p cyst removal x 3 Wound #2 Location: L upper arm Severity: Partial thickness Etiology: Trauma/Skin tear Context: s/p fall onto walker with skin tear from being pinched within the folding mechanism of the walker. Currently using mupirocin. [facility] Medical History 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) Thrombocytopenia (Chronic) Leukopenia (Chronic) Small cell lung cancer (Chronic) Renal insufficiency (Chronic) Coronary artery disease (Chronic) Depression (Chronic) Diabetes type 2, controlled (Chronic) Hyperlipidemia (Chronic) Hypertension (Chronic) Rheumatoid arthritis (Chronic) History of nephrolithotomy with removal of calculi (Resolved) History of pulmonary embolism (Resolved) Kidney stone (Resolved) Thrombophlebitis of arm, left (Resolved) UTI (urinary tract infection) (Inactive) Surgical History H/O umbilical hernia repair (Acute) H/O coronary angioplasty (Resolved) History of appendectomy (Resolved) History of cholecystectomy (Resolved) Family History Father No problems noted. Mother No problems noted. Brother Hx of CABG Diabetes mellitus Coronary artery disease Social History household members: significant other Smoking Status: Former smoker alcohol intake: never Meds Home Medications Medication Instructions Recorded Confirmed Type atorvastatin [Lipitor] 40 mg PO BEDTIME #0 03/21/17 04/17/18 History ascorbic acid (vitamin C) 1,500 mg PO DAILY #0 06/01/17 04/17/18 History calcium carbonate 1,200 mg PO Q DAY #0 06/01/17 04/17/18 History cholecalciferol (vitamin D3) 2,000 iu PO QDAY #0 06/01/17 04/17/18 History [Vitamin D3] magnesium 200 mg PO Q DAY #0 06/01/17 04/17/18 History multivitamin [Multiple Vitamins] 1 tab PO QDAY #0 06/01/17 04/17/18 History methotrexate sodium 10 mg PO QWEEK 09/12/17 04/17/18 History nitroglycerin [Nitrostat] 0.4 mg SUBLINGUAL [id number] PRN #30 10/01/17 04/17/18 Rx tab metformin 500 mg PO BID 01/02/18 04/17/18 History rivaroxaban [Xarelto] 20 mg PO DAILY #90 tab 02/07/18 04/17/18 Rx carvedilol 6.25 mg PO BID 02/22/18 04/17/18 History citalopram 10 mg PO BEDTIME 02/22/18 04/17/18 History doxazosin 8 mg PO BEDTIME 02/22/18 04/17/18 History folic acid 0.8 mg PO DAILY 02/22/18 04/17/18 History mupirocin calcium [Bactroban] 1 applic TOPICAL BEDTIME 03/29/18 04/17/18 History timolol 1 dose EYE-LEFT BID 03/29/18 04/17/18 History hydrocortisone 40 mg PO BID 04/11/18 04/17/18 History Probiotic 1 cap PO BID 04/17/18 04/17/18 History omeprazole 20 mg PO DAILY 04/17/18 04/17/18 History prednisone 40 mg PO BID 04/17/18 04/17/18 History Allergies Allergy/AdvReac Type Severity Reaction Status Date / Time chlorthalidone Allergy Verified 04/17/18 11:57 hydroxychloroquine Allergy Verified 04/17/18 11:57 [From Plaquenil] niacin [NIACIN] AdvReac Severe Hypotension Verified 04/17/18 11:57 amlodipine [AMLODIPINE] AdvReac Unknown Verified 04/17/18 11:57 gemfibrozil [GEMFIBROZIL] AdvReac Unknown Verified 04/17/18 11:57 hydrochlorothiazide AdvReac Unknown Verified 04/17/18 11:57 [HYDROCHLOROTHIAZIDE] lisinopril [LISINOPRIL] AdvReac Unknown Verified 04/17/18 11:57 Review of Systems Constitutional Constitutional: Reports anorexia, Denies chills, Denies excessive sweating, Denies fatigue, Denies fever(s), Reports malaise, Reports poor appetite and Reports weight loss Cardiovascular Cardiovascular: Denies foot swelling, Denies leg pain with activity and Denies leg swelling Gastrointestinal Gastrointestinal: Denies fecal incontinence Genitourinary Genitourinary: Denies urinary incontinence Musculoskeletal Musculoskeletal: Denies abnormal gait and Denies deformity Integumentary/Breasts Skin/Breast: Reports non-healing lesions, Denies erythema, Reports skin ulcer and Reports other (drainage minimal) Neurologic Neurologic: Denies abnormal gait Endocrine Endocrine: Denies excessive sweating and Denies fatigue Exam Vital Signs (past 8 hours): - 04/20/18 00:02 04/20/18 02:00 04/20/18 04:00 Temperature 97.8 F 98.1 F Pulse Rate 65 63 Respiratory Rate 20 18 Blood Pressure 163/102 H 155/102 H Pulse Oximetry 98 98 99 Oxygen Delivery Method Room Air Oxygen Flow Rate 0 Const General: cooperative and comfortable Nutritional Appearance: average body habitus Eyes Sclera: sclerae normal Resp Effort & Inspection: normal respiratory effort Cardio Rate: regular rate Skin Wounds: wounds noted (1. L hip: Two small lesions that are 100% covered in black eschar. No s/s infection. 2. L upper arm: Partial thickness skin tear. Minimal serous drainage. No signs or symptoms of infection. ) Neuro Sensory Exam: no sensory deficits noted (L upper extremity) Extrem Left upper extremity: full ROM and normal capillary refill; no edema Psych Appearance: grossly normal Mental Status: mental status grossly normal Mood: congruent mood Affect: normal affect Judgment: judgment good Objective Labs Result Diagrams: 04/23/18 04:52 04/23/18 04:52 Assessment & Plan Plan: Assessment/Plan Narrative: Assessment 78 year old male with two wounds as noted above. #1 is a result of cyst removal that has been slow to heal. 100% covered in eschar. #2 is a result of trauma. It is a partial thickness skin tear. Neither wound is associated with infection. The following co-factors that can result in delayed wound healing are identified: Immunosuppression (steroids, chemotherapy); Chronic medical conditions (cancer; rheumatoid arthritis). Goal: Closure of the wound/ulcer. Prevent infection or deterioration of the wound Plan Optimize the local wound environment to promote healing by cleansing, debriding, managing bacterial balance, and managing moisture balance. Wound #1: A selective surgical debridement was performed to remove devitalized tissue: black eschar. The following instrument was used: curette. Anesthesia: None. A time out was conducted prior to the start of the procedure. A minimal amount of bleeding was controlled with pressure. The procedure was tolerated well, with only minor pain towards the end of the procedure and no pain after the procedure. Approximately 80% of the necrotic eschar was removed. In order to not provoke additional pain, decision was made to utilize dressings for autolytic debridement of the remaining eschar. Post-debridment, Wound #1 is noted to be full-thickness. Wound bed is 20% necrotic eschar/80% fibrotic granulation tissue. Wound #2: A selective surgical debridement was performed to remove devitalized tissue: small unattached flap of epidermis and dermis. The following instrument was used: forceps; Iris scissors. Anesthesia: None. A time out was conducted prior to the start of the procedure. No bleeding. The procedure was tolerated well, with no pain throughout or after the procedure. Both wound areas were cleaned with 0.9% saline and covered with a hydrocolloid dressing, which should not be changed unless leaking from the edges or detached. Will return in 2 days to take down dressing and re-evaluate. Further recommendations to follow at that time.
--- NOTE | 2018-04-20 07:40 | P.CONS_ITS ---
History of Present Illness Date Patient Seen: 04/18/18 Time Patient Seen: 16:00 Chief complaint: Left hip and upper arm wounds. Reason for consult: Left hip and upper arm wounds Requesting provider: Aisha Helms Narrative: Wound #1: Location: L Hip Severity: Full thickness (post-debridement) Etiology: Surgical Context: s/p cyst removal x 3 Wound #2 Location: L upper arm Severity: Partial thickness Etiology: Trauma/Skin tear Context: s/p fall onto walker with skin tear from being pinched within the folding mechanism of the walker. Currently using mupirocin. [facility] Medical History 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) Thrombocytopenia (Chronic) Leukopenia (Chronic) Small cell lung cancer (Chronic) Renal insufficiency (Chronic) Coronary artery disease (Chronic) Depression (Chronic) Diabetes type 2, controlled (Chronic) Hyperlipidemia (Chronic) Hypertension (Chronic) Rheumatoid arthritis (Chronic) History of nephrolithotomy with removal of calculi (Resolved) History of pulmonary embolism (Resolved) Kidney stone (Resolved) Thrombophlebitis of arm, left (Resolved) UTI (urinary tract infection) (Inactive) Surgical History H/O umbilical hernia repair (Acute) H/O coronary angioplasty (Resolved) History of appendectomy (Resolved) History of cholecystectomy (Resolved) Family History Father No problems noted. Mother No problems noted. Brother Hx of CABG Diabetes mellitus Coronary artery disease Social History household members: significant other Smoking Status: Former smoker alcohol intake: never Meds Home Medications Medication Instructions Recorded Confirmed Type atorvastatin [Lipitor] 40 mg PO BEDTIME #0 03/21/17 04/17/18 History ascorbic acid (vitamin C) 1,500 mg PO DAILY #0 06/01/17 04/17/18 History calcium carbonate 1,200 mg PO Q DAY #0 06/01/17 04/17/18 History cholecalciferol (vitamin D3) 2,000 iu PO QDAY #0 06/01/17 04/17/18 History [Vitamin D3] magnesium 200 mg PO Q DAY #0 06/01/17 04/17/18 History multivitamin [Multiple Vitamins] 1 tab PO QDAY #0 06/01/17 04/17/18 History methotrexate sodium 10 mg PO QWEEK 09/12/17 04/17/18 History nitroglycerin [Nitrostat] 0.4 mg SUBLINGUAL [id number] PRN #30 10/01/17 04/17/18 Rx tab metformin 500 mg PO BID 01/02/18 04/17/18 History rivaroxaban [Xarelto] 20 mg PO DAILY #90 tab 02/07/18 04/17/18 Rx carvedilol 6.25 mg PO BID 02/22/18 04/17/18 History citalopram 10 mg PO BEDTIME 02/22/18 04/17/18 History doxazosin 8 mg PO BEDTIME 02/22/18 04/17/18 History folic acid 0.8 mg PO DAILY 02/22/18 04/17/18 History mupirocin calcium [Bactroban] 1 applic TOPICAL BEDTIME 03/29/18 04/17/18 History timolol 1 dose EYE-LEFT BID 03/29/18 04/17/18 History hydrocortisone 40 mg PO BID 04/11/18 04/17/18 History Probiotic 1 cap PO BID 04/17/18 04/17/18 History omeprazole 20 mg PO DAILY 04/17/18 04/17/18 History prednisone 40 mg PO BID 04/17/18 04/17/18 History Allergies Allergy/AdvReac Type Severity Reaction Status Date / Time chlorthalidone Allergy Verified 04/17/18 11:57 hydroxychloroquine Allergy Verified 04/17/18 11:57 [From Plaquenil] niacin [NIACIN] AdvReac Severe Hypotension Verified 04/17/18 11:57 amlodipine [AMLODIPINE] AdvReac Unknown Verified 04/17/18 11:57 gemfibrozil [GEMFIBROZIL] AdvReac Unknown Verified 04/17/18 11:57 hydrochlorothiazide AdvReac Unknown Verified 04/17/18 11:57 [HYDROCHLOROTHIAZIDE] lisinopril [LISINOPRIL] AdvReac Unknown Verified 04/17/18 11:57 Review of Systems Constitutional Constitutional: Reports anorexia, Denies chills, Denies excessive sweating, Denies fatigue, Denies fever(s), Reports malaise, Reports poor appetite and Reports weight loss Cardiovascular Cardiovascular: Denies foot swelling, Denies leg pain with activity and Denies leg swelling Gastrointestinal Gastrointestinal: Denies fecal incontinence Genitourinary Genitourinary: Denies urinary incontinence Musculoskeletal Musculoskeletal: Denies abnormal gait and Denies deformity Integumentary/Breasts Skin/Breast: Reports non-healing lesions, Denies erythema, Reports skin ulcer and Reports other (drainage minimal) Neurologic Neurologic: Denies abnormal gait Endocrine Endocrine: Denies excessive sweating and Denies fatigue Exam Vital Signs (past 8 hours): - 04/20/18 00:02 04/20/18 02:00 04/20/18 04:00 Temperature 97.8 F 98.1 F Pulse Rate 65 63 Respiratory Rate 20 18 Blood Pressure 163/102 H 155/102 H Pulse Oximetry 98 98 99 Oxygen Delivery Method Room Air Oxygen Flow Rate 0 Const General: cooperative and comfortable Nutritional Appearance: average body habitus Eyes Sclera: sclerae normal Resp Effort & Inspection: normal respiratory effort Cardio Rate: regular rate Skin Wounds: wounds noted (1. L hip: Two small lesions that are 100% covered in black eschar. No s/s infection. 2. L upper arm: Partial thickness skin tear. Minimal serous drainage. No signs or symptoms of infection. ) Neuro Sensory Exam: no sensory deficits noted (L upper extremity) Extrem Left upper extremity: full ROM and normal capillary refill; no edema Psych Appearance: grossly normal Mental Status: mental status grossly normal Mood: congruent mood Affect: normal affect Judgment: judgment good Objective Labs Result Diagrams: 04/23/18 04:52 04/23/18 04:52 Assessment & Plan Plan: Assessment/Plan Narrative: Assessment 78 year old male with two wounds as noted above. #1 is a result of cyst removal that has been slow to heal. 100% covered in eschar. #2 is a result of trauma. It is a partial thickness skin tear. Neither wound is associated with infection. The following co-factors that can result in delayed wound healing are identified : Immunosuppression (steroids, chemotherapy); Chronic medical conditions (cancer ; rheumatoid arthritis). Goal: Closure of the wound/ulcer. Prevent infection or deterioration of the wound Plan Optimize the local wound environment to promote healing by cleansing, debriding , managing bacterial balance, and managing moisture balance. Wound #1: A selective surgical debridement was performed to remove devitalized tissue: black eschar. The following instrument was used: curette. Anesthesia: None. A time out was conducted prior to the start of the procedure. A minimal amount of bleeding was controlled with pressure. The procedure was tolerated well, with only minor pain towards the end of the procedure and no pain after the procedure. Approximately 80% of the necrotic eschar was removed. In order to not provoke additional pain, decision was made to utilize dressings for autolytic debridement of the remaining eschar. Post-debridment, Wound #1 is noted to be full-thickness. Wound bed is 20% necrotic eschar/80% fibrotic granulation tissue. Wound #2: A selective surgical debridement was performed to remove devitalized tissue: small unattached flap of epidermis and dermis. The following instrument was used: forceps; Iris scissors. Anesthesia: None. A time out was conducted prior to the start of the procedure. No bleeding. The procedure was tolerated well, with no pain throughout or after the procedure. Both wound areas were cleaned with 0.9% saline and covered with a hydrocolloid dressing, which should not be changed unless leaking from the edges or detached. Will return in 2 days to take down dressing and re-evaluate. Further recommendations to follow at that time.
--- NOTE | 2018-04-20 08:55 | PM.PN.1 ---
Subjective Date Patient Seen: 04/20/18 Time Patient Seen: 09:57 Interval history: He is seen in his room here today to follow-up the orthostatic hypotension, resting hypertension and pneumonia. This morning he was able to stand, at the bedside, for about 45 sec before the hypotension/tachycardia caused him to lose his abilities. The pressure went down to 108/67, and at baseline, supine is 155/102. He had been tried on fludrocortisone, with a blood pressure subsequently, supine as high as 196/120. The hospital administration/supply personnel are still working on obtaining appropriate compression devices as that would be his ideal treatment. Exam Vital Signs (past 8 hours): - 04/20/18 02:00 04/20/18 04:00 04/20/18 07:00 Temperature 98.1 F Pulse Rate 63 Respiratory Rate 18 Blood Pressure 155/102 H Pulse Oximetry 98 99 96 04/20/18 08:00 Temperature 96.2 F L Pulse Rate 71 Respiratory Rate 18 Blood Pressure 161/110 H Pulse Oximetry 99 Oxygen Delivery Method Room Air Oxygen Flow Rate 0 Narrative Exam Narrative: He is very hard of hearing, alert and oriented x3, but defers most of the conversation to his who is quite helpful. Heart is regular rate and rhythm without murmur. Lungs are clear to auscultation bilaterally. Extremities have no ankle edema. Objective Labs Result Diagrams: 04/18/18 04:58 04/18/18 04:58 Assessment & Plan Plan: Assessment/Plan Narrative: (1) Orthostatic hypotension: Problem details: Present on admission, acute Patient did not tolerate a trial of Florinef. The blood pressure, while supine, [place] as high as 196/120. Coreg and Cardura have also been discontinued. Trialing on Midodrine, low dose, since yesterday with somewhat better tolerance. Will need to monitor supine blood pressure closely. If he continues to be hypertensive will need to reconsider midodrine as well. Jobst stockings have been ordered. Would consider abdominal binders as well. Current visit: Yes Status: Acute (2) Adrenal insufficiency: Problem details: Patient has adrenal insufficiency which is a known side effect of Zytiga. The Zytiga has been discont and taper prednisone. Will continue to monitor his orthostatic hypotension as well. The patient is on high-dose steroids. Current visit: Yes Status: Acute (3) CAD (coronary artery disease): Problem details: No active evidence of coronary disease. Current visit: Yes Status: Acute (4) Hyperglycemia: Problem details: Hyperglycemia, present on admission, acute suspect secondary to steroids. Anticipate improvement of hyperglycemia with tapering of steroids. Will continue sliding scale of insulin and metformin. Current visit: No Status: Acute (5) Pneumonia: Problem details: Patient has improved significantly. Completed a full course of antibiotics with Levaquin yesterday. Qualifiers: Aspiration pneumonia type: Laterality: left Lung location: Pneumonia type: due to unspecified organism Current visit: No Status: Acute (6) Syncope: Problem details: Syncope, present on admission. Secondary to orthostatic hypotension. Qualifiers: Encounter type: Syncope type: Current visit: Yes Status: Acute (7) Metastatic malignant neoplasm to prostate: Problem details: He has metastatic prostate cancer with a high Tanisha score. His PSA is undetectable. He will be due for Lupron injection in April. He will hold the Zytiga Current visit: No Status: Chronic (8) Small cell lung cancer: Problem details: Present on admission, acute Current visit: No Status: Chronic (9) Rheumatoid arthritis: Problem details: Patient will continue methotrexate 10 mg weekly Present on admission chronic Current visit: Yes Status: Acute
--- NOTE | 2018-04-20 09:02 | OT.IP.TRT ---
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 (04/17/18) Atherosclerotic heart disease of [place] coronary artery without angina pectoris (04/17/18) Orthostatic hypotension (04/17/18) Pneumonia, unspecified organism (04/17/18) Rheumatoid arthritis, unspecified (04/17/18) Syncope and collapse (04/17/18) Hyperglycemia, unspecified (04/17/18) Occupational Therapy Treatment Note M3 OT- IP Subjective and Pain Start: 04/18/18 14:49 Freq: Status: Active Protocol: Document 04/20/18 09:01 [facility] (Rec: 04/20/18 09:02 [facility] [id number]) OT- Subjective Occupational Therapy Visit Type Type Discharge Summary Notes Pt not medically stable at this time. OT eval discharged at this time.
[2018-04-20] MEDS: FOLIC ACID 0.4 MG TABLET 0.8 MG PO (09:39)
[2018-04-20] MEDS: CITALOPRAM 10 MG TABLET PO (09:39)
[2018-04-20] MEDS: predniSONE 20 MG TABLET 40 MG PO (09:39)
[2018-04-20] MEDS: METFORMIN HCL 500 MG TABLET PO ×2 (09:40→16:54)
[2018-04-20] MEDS: RIVAROXABAN 10 MG TABLET 20 MG PO (09:40)
[2018-04-20] MEDS: CHOLECALCIFEROL (VITAMIN D3) 1,000 UNIT TABLET 2000 UNIT PO (09:40)
[2018-04-20] MEDS: CALCIUM CARBONATE 500 MG TAB 1000 MG PO (09:41)
[2018-04-20] MEDS: MULTIVITAMIN 1 TABLET 1 TAB PO (09:41)
[2018-04-20] MEDS: DOCUSATE 100 MG CAPSULE PO ×2 (10:14→21:45)
[2018-04-20] MEDS: CALCIUM CARBONATE 600 MG TABLET 1200 MG PO (10:14)
--- NOTE | 2018-04-20 11:31 | PT.IPTN ---
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 (04/17/18) Atherosclerotic heart disease of [place] coronary artery without angina pectoris (04/17/18) Orthostatic hypotension (04/17/18) Pneumonia, unspecified organism (04/17/18) Rheumatoid arthritis, unspecified (04/17/18) Syncope and collapse (04/17/18) Hyperglycemia, unspecified (04/17/18) Physical Therapy Treatment Note M2 PT-IP Current Condition Start: 04/18/18 10:11 Freq: NEEDED Status: Active Protocol: Document 04/18/18 09:45 [facility] (Rec: 04/18/18 11:00 HH [id number]) Physical Therapy Current Condition Current Condition Evaluation Date 04/18/17 Treatment Diagnosis syncope, difficulty in walking , generalized muscle weakness Onset Date 04/17/17 Weight Bearing Status Weight Bearing Status Weight Bear as Tolerated M3 PT-IP Subjective Start: 04/18/18 10:11 Freq: NEEDED Status: Active Protocol: Document 04/20/18 11:30 GGD (Rec: 04/20/18 11:30 GGD [id number]) Subjective Physical Therapy Visit Type Type Discharge Summary Notes Pt not medically stable at this time. Discharged from PT.
[2018-04-20] MEDS: INSULIN ASPART 100 UNIT/ML INSULN PEN SUBCUT ×2 (13:08→16:46)
--- NOTE | 2018-04-20 14:17 | PC.NURSE ---
Am shift note Pt has been A/o x3, expresses frustration with slow progress. Ortho BPs obtained, continues with drop to BP, unable to stand at bedside with 2 PA FWW for more than 45 seconds. Pt able to verbalize im going down before dropping weight to bed. Has short 2-6 seconds of slow motor response at this time. I feel fuzzy confirms this is as things have been going at home. Pt continues on new order for MIdodine, see vitals. with concerns about wound care that was to be done on L arm and L hip. Duoderm to areas are intact. Call into Wound care center, Shari will follow up with and get back to nursing staff with clarification.
--- NOTE | 2018-04-20 15:02 | CM.DPC ---
DCP/cont Patient is in need of JOBST compression stockings. RN/Chapo is working with supplier (Keri [phone])to get those delivered. [employer] faxed face sheet to [phone]. Patient will require those prior to discharge. They are expected to arrive tonight. Patient was not medically appropriate to work with PT/OT and was discharged from both services. Would need new orders. Plan: Continue to follow. Family's goal is for patient to return home.
--- NOTE | 2018-04-20 18:55 | PC.NURSE ---
PATIENT ABLE TO TRANSFER TO BED FROM CHAIR, NEW NATHAN HOSE IN PLACE PATIENT WAS ABLE TO WALK5-6 STEPS TO BED WITHOUT DIZZINESS,WILL WAIT 15MIN BEFORE ORTHOSTATIC BPS
[2018-04-20] MEDS: ATORVASTATIN 20 MG TABLET 40 MG PO (21:45)
[2018-04-21] VITALS (13 sets, daily range): BP systolic 84–204; BP diastolic 55–112; PULSE 64–126; RESP 16–18; TEMP 36.2–36.6; O2SAT 93–98
[2018-04-21] MEDS: LABETALOL 20 MG/4 ML SYRINGE 10 MG IV (01:55)
[2018-04-21] MEDS: LABETALOL 20 MG/4 ML SYRINGE IV (04:17)
[2018-04-21] MEDS: PANTOPRAZOLE 20 MG TABLET PO (06:16)
--- NOTE | 2018-04-21 06:21 | PC.NURSE ---
Midodrine not given due to B/P being 197/112.
--- NOTE | 2018-04-21 06:38 | PC.NURSE ---
Pt. denies pain, denies shortness of breath but wearing his home CPAP at bedtime, lungs CTA. Pt. received Labetalol 10 mg first dose at 0155 after tele applied for monitoring for a B/P of 204/120 then 20 mg again at 0407 for a B/P of 204/102 supine, 200/111 sitting up in bed. Pt. unhappy about being awaken many times during the night for B/P check, informed him that it is necessary. in room understood the necessary checks and treatment. Midodrine dose due at 0600 held for a B/P of 197/112. Continue to monitor and treat.
[2018-04-21] MEDS: RIVAROXABAN 10 MG TABLET 20 MG PO (09:50)
[2018-04-21] MEDS: FOLIC ACID 0.4 MG TABLET 0.8 MG PO (09:50)
[2018-04-21] MEDS: METFORMIN HCL 500 MG TABLET PO ×2 (09:52→16:50)
[2018-04-21] MEDS: CHOLECALCIFEROL (VITAMIN D3) 1,000 UNIT TABLET 2000 UNIT PO (09:53)
[2018-04-21] MEDS: DOCUSATE 100 MG CAPSULE PO ×2 (09:53→20:38)
[2018-04-21] MEDS: CITALOPRAM 10 MG TABLET PO (09:54)
[2018-04-21] MEDS: MULTIVITAMIN 1 TABLET 1 TAB PO (09:55)
[2018-04-21] MEDS: predniSONE 20 MG TABLET 40 MG PO (09:55)
[2018-04-21] MEDS: FLUDROCORTISONE 0.1 MG TABLET PO ×2 (09:58→20:39)
[2018-04-21] MEDS: CALCIUM CARBONATE 600 MG TABLET 1200 MG PO (09:59)
--- NOTE | 2018-04-21 13:22 | PM.PN.1 ---
Subjective Date Patient Seen: 04/21/18 Interval history: He is seen today to follow up the symptomatic orthostatic hypotension and paroxysmal hypertension. The hypertensive component of this problem has worsened over night. His pressures reached as high as 204/102 and are currently at 197/112. This is all while supine. This morning while standing his blood pressure dropped to 88/44 but he was able to stand for much longer now going for 2 and 0.5 min before becoming weak. The thigh-high compression stockings were obtained yesterday and he is now wearing them, which may be helpful in the improving tolerance for standing. There was an 8 beat run of wide complex tachycardia early this morning which was not symptomatic. Clearly the midodrine is suspicious for causing the hypertensive crisis over night. This was the same issue that developed with the 1st dose of fludrocortisone. He is wearing the thigh-high compression stockings. Exam Vital Signs (past 8 hours): - 04/21/18 05:40 04/21/18 06:21 04/21/18 07:00 Temperature 97.6 F Pulse Rate 64 Pulse Rate [Orthostatic Lying] Pulse Rate [Orthostatic Sitting] Pulse Rate [Orthostatic Standing] Respiratory Rate 16 Blood Pressure 171/96 H 197/112 H Blood Pressure [Orthostatic Lying] Blood Pressure [Orthostatic Sitting] Blood Pressure [Orthostatic Standing] Pulse Oximetry 93 93 04/21/18 08:00 04/21/18 09:40 Temperature 97.5 F L Pulse Rate 66 Pulse Rate [Orthostatic Lying] 69 Pulse Rate [Orthostatic Sitting] 84 Pulse Rate [Orthostatic Standing] 111 H Respiratory Rate Blood Pressure 166/108 H Blood Pressure [Orthostatic Lying] 158/80 H Blood Pressure [Orthostatic Sitting] 115/73 Blood Pressure [Orthostatic Standing] 84/55 L Pulse Oximetry 98 94 Fraction of Inspired Oxygen 21 Oxygen Delivery Method Room Air Oxygen Flow Rate 0 Narrative Exam Narrative: He is alert and oriented x3. His is visiting and answers the questions. Heart is regular rate and rhythm without murmur. Lungs are clear to auscultation bilaterally. Extremities have no ankle edema. Objective Labs Result Diagrams: 04/18/18 04:58 04/18/18 04:58 Assessment & Plan Plan: Assessment/Plan Narrative: (1) Orthostatic hypotension: Problem details: Present on admission, acute Patient did not tolerate a trial of Florinef and now has not tolerated a 2 day trial of midodrine. The blood pressure, while supine, kelton as high as 204/102. Coreg and Cardura were discontinued. We will try the fludrocortisone 1 more time. Jobst thigh-high stockings have now been placed with so far encouraging results. Would consider abdominal binders as well. Current visit: Yes Status: Acute (2) Adrenal insufficiency: Problem details: Patient has adrenal insufficiency which is a known side effect of Zytiga. The Zytiga has been discont and tapered down on prednisone. Will continue to monitor his orthostatic hypotension as well. The patient was on high-dose steroids. Current visit: Yes Status: Acute (3) CAD (coronary artery disease): Problem details: No active evidence of coronary disease. Current visit: Yes Status: Acute (4) Hyperglycemia: Problem details: Hyperglycemia, present on admission, acute suspect secondary to steroids. Will continue sliding scale of insulin and metformin. Current visit: No Status: Acute (5) Pneumonia: Problem details: Patient has improved significantly. Completed a full course of antibiotics with Levaquin already. Qualifiers: Aspiration pneumonia type: Laterality: left Lung location: Pneumonia type: due to unspecified organism Current visit: No Status: Acute (6) Syncope: Problem details: Syncope, present on admission. Secondary to orthostatic hypotension. Qualifiers: Encounter type: Syncope type: Current visit: Yes Status: Acute (7) Metastatic malignant neoplasm to prostate: Problem details: He has metastatic prostate cancer with a high Tanisha score. His PSA is undetectable. He will be due for Lupron injection in April. He will hold the Zytiga Current visit: No Status: Chronic (8) Small cell lung cancer: Problem details: Present on admission, acute Current visit: No Status: Chronic (9) Rheumatoid arthritis: Problem details: Patient will continue methotrexate 10 mg weekly Present on admission chronic Current visit: Yes Status: Acute Total time today 36 min with more than 50% of that time spent in counseling and coordination of care for his hypotension and adrenal cortical insufficiency.
[2018-04-21] MEDS: INSULIN ASPART 100 UNIT/ML INSULN PEN SUBCUT ×3 (14:17→20:37)
--- NOTE | 2018-04-21 17:31 | PC.NURSE ---
Addendum entered by Mikaela Leonardo R.N. 04/21/18 21:30: Pt denies any discomfort at this time. NATHAN hose in place. HL intact/patent. Relatively uneventful evening. Call light w/in reach, bed alarm on for pt safety. Continue w/plan of care. Original Note: Pt visiting with friends. Denies discomfort at this time. Orthostatic B/P completed. Laying = 188/90, 69; sitting = 131/104, 96; standing = 99/77, 126. no c/o lightheadedness or dizziness. Assisted to BSC, had large BM. Dsg on left hip w/old drainage in place. Call light w/in reach, in room.
[2018-04-21] MEDS: ATORVASTATIN 20 MG TABLET 40 MG PO (20:39)
[2018-04-22] VITALS (13 sets, daily range): BP systolic 106–199; BP diastolic 58–122; PULSE 65–120; RESP 16–20; TEMP 35.8–36.6; O2SAT 96–98
[2018-04-22] MEDS: PANTOPRAZOLE 20 MG TABLET PO (06:17)
--- NOTE | 2018-04-22 06:45 | PC.NURSE ---
Pt. denied pain throughout the night, lungs decreased throughout otherwise CTA, wearing his own CPAP. Pt. on 24 hr urine collection for Methanephrines. Pts. so far has been diligent on recording the amt. of urine and pouring it in the collection jug. Around 0500 this am, pt. however spilled urine, pt's. thought the urine amt. is approximately 50 ml.
[2018-04-22] MEDS: CHOLECALCIFEROL (VITAMIN D3) 1,000 UNIT TABLET 2000 UNIT PO (09:20)
[2018-04-22] MEDS: CALCIUM CARBONATE 600 MG TABLET 1200 MG PO (09:21)
[2018-04-22] MEDS: RIVAROXABAN 10 MG TABLET 20 MG PO (09:21)
[2018-04-22] MEDS: CITALOPRAM 10 MG TABLET PO (09:21)
[2018-04-22] MEDS: DOCUSATE 100 MG CAPSULE PO ×2 (09:21→21:41)
[2018-04-22] MEDS: FOLIC ACID 0.4 MG TABLET 0.8 MG PO (09:22)
[2018-04-22] MEDS: predniSONE 20 MG TABLET 40 MG PO (09:22)
[2018-04-22] MEDS: FLUDROCORTISONE 0.1 MG TABLET PO ×2 (09:23→21:41)
[2018-04-22] MEDS: METFORMIN HCL 500 MG TABLET PO ×2 (09:23→17:00)
[2018-04-22] MEDS: MULTIVITAMIN 1 TABLET 1 TAB PO (09:23)
[2018-04-22] MEDS: INSULIN ASPART 100 UNIT/ML INSULN PEN SUBCUT ×3 (09:24→21:42)
--- NOTE | 2018-04-22 09:34 | PC.NURSE ---
Addendum entered by Shiela Denis R.N. 04/22/18 16:00: Dressing to L hip and L arm changed, orders noted for 3x weekly changes as needed. Original Note: AM shift Pt A/ox3, able to stand at edge of bed for ortho VS without difficulty this AM, no shaking, no knees buckling. Compression socks in place. 24 hour urine collection completed and collection taken to lab. Dr Mc at bedside for update to and Pt.
--- NOTE | 2018-04-22 12:16 | CM.DPC ---
Addendum entered by MONIKA Ann 04/22/18 14:43: Plan: continue to follow. Patient's goal is to return home with [facility]. Resumption of care orders will be needed. Original Note: DCP/cont Patient did receive thigh high compression stockings. His tolerance for standing has improved as the effect of the compression stockings, but patient remains hypertensive when supine. PT/OT evals were reordered by hospitalist. Plan: continue to follow. Patient's goal is to return home.
--- NOTE | 2018-04-22 12:45 | PM.PN.1 ---
Subjective Date Patient Seen: 04/22/18 Interval history: He is seen today to follow-up the orthostatic hypotension and near syncope. He remains hypertensive when supine. He has a history of small cell lung cancer and so today we have been considering the possibility of Eaton Lambert versus myasthenia gravis contributing to his autonomic dysreflexia symptoms. His tolerance for standing has improved as the effect of the compression stockings is building. He is no longer on midodrine, because of excessive hypertension. He was changed back to fludrocortisone yesterday with subsequent blood pressures remaining high at 199/122 and 149/82. He was able to stand for more than 2 min this morning and actually sat down because his became worried, before needing to. Physical therapy and occupational therapy will resume. Exam Vital Signs (past 8 hours): - 04/22/18 06:37 04/22/18 06:38 04/22/18 07:00 Temperature 97.4 F L Pulse Rate 65 Pulse Rate [Orthostatic Lying] 67 Pulse Rate [Orthostatic Sitting] 79 Pulse Rate [Orthostatic Standing] 110 H Respiratory Rate 16 Blood Pressure 199/122 H Blood Pressure [Orthostatic Lying] 199/122 H Blood Pressure [Orthostatic Sitting] 169/122 H Blood Pressure [Orthostatic Standing] 106/58 L Pulse Oximetry 97 96 04/22/18 07:06 04/22/18 09:40 Temperature 97.8 F Pulse Rate 75 79 Pulse Rate [Orthostatic Lying] 79 Pulse Rate [Orthostatic Sitting] 95 H Pulse Rate [Orthostatic Standing] 120 H Respiratory Rate 16 Blood Pressure 149/82 H 148/85 H Blood Pressure [Orthostatic Lying] 148/85 H Blood Pressure [Orthostatic Sitting] 137/98 H Blood Pressure [Orthostatic Standing] 130/92 H Pulse Oximetry 97 97 Fraction of Inspired Oxygen 21 Oxygen Delivery Method Room Air Oxygen Flow Rate 0 Narrative Exam Narrative: He is alert and oriented x3, quite hard of hearing but without apparent distress. Heart is regular rate and rhythm without murmur. Lungs are clear to auscultation bilaterally. Extremities have no ankle edema. Objective Labs Result Diagrams: 04/18/18 04:58 04/18/18 04:58 Assessment & Plan Plan: Assessment/Plan Narrative: (1) Orthostatic hypotension: Problem details: Present on admission, acute Patient did not tolerate a trial of Florinef originally, with high blood pressures while supine, and now has not tolerated a 2 day trial of midodrine. The blood pressure overnight, while supine, kelton as high as 199/122 Coreg and Cardura were discontinued several days ago. We are read trialing the fludrocortisone 1 more time. Jobst thigh-high stockings have now been placed with so far encouraging results. Would consider abdominal binders as well. Acetylcholinesterase antibody has been ordered but we were unable to order the [facility] antibody test for Cheri Montoya. We are also not able to do an EMG in this facility. There were no physical exam findings provocable of rapid fatigue or sluggish pupils today. Current visit: Yes Status: Acute (2) Adrenal insufficiency: Problem details: Patient has adrenal insufficiency which is a known side effect of Zytiga. The Zytiga has been discont and tapered down on prednisone. Will continue to monitor his orthostatic hypotension as well. The patient was on high-dose steroids and is now down to 40 mg of prednisone daily. Current visit: Yes Status: Acute (3) CAD (coronary artery disease): Problem details: No active evidence of coronary disease. Current visit: Yes Status: Acute (4) Hyperglycemia: Problem details: Hyperglycemia, present on admission, acute suspect secondary to steroids. Will continue sliding scale of insulin and metformin. Current visit: No Status: Acute (5) Pneumonia: Problem details: Patient has improved significantly. Completed a full course of antibiotics with Levaquin already. Qualifiers: Aspiration pneumonia type: Laterality: left Lung location: Pneumonia type: due to unspecified organism Current visit: No Status: Acute (6) Syncope: Problem details: Syncope, present on admission. Secondary to orthostatic hypotension. Qualifiers: Encounter type: Syncope type: Current visit: Yes Status: Acute (7) Metastatic malignant neoplasm to prostate: Problem details: He has metastatic prostate cancer with a high Roseme[place] score. His PSA is undetectable. He will be due for Lupron injection in April. He will hold the Zytiga Current visit: No Status: Chronic (8) Small cell lung cancer: Problem details: Present on admission, acute Current visit: No Status: Chronic (9) Rheumatoid arthritis: Problem details: Patient will continue methotrexate 10 mg weekly Present on admission chronic Current visit: Yes Status: Acute
--- NOTE | 2018-04-22 13:39 | PT.IPRE ---
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 (04/17/18) Atherosclerotic heart disease of elem coronary artery without angina pectoris (04/17/18) Orthostatic hypotension (04/17/18) Pneumonia, unspecified organism (04/17/18) Rheumatoid arthritis, unspecified (04/17/18) Syncope and collapse (04/17/18) Hyperglycemia, unspecified (04/17/18) Surgical History (Last Reviewed 04/17/18 @ 17:18 by Aisha Helms MD) H/O umbilical hernia repair (Acute) H/O coronary angioplasty (Resolved) History of appendectomy (Resolved) History of cholecystectomy (Resolved) Medical History (Last Reviewed 04/17/18 @ 17:18 by Aisha Helms MD) 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) Thrombocytopenia (Chronic) Leukopenia (Chronic) Small cell lung cancer (Chronic) Renal insufficiency (Chronic) Coronary artery disease (Chronic) Depression (Chronic) Diabetes type 2, controlled (Chronic) Hyperlipidemia (Chronic) Hypertension (Chronic) Rheumatoid arthritis (Chronic) History of nephrolithotomy with removal of calculi (Resolved) History of pulmonary embolism (Resolved) Kidney stone (Resolved) Thrombophlebitis of arm, left (Resolved) UTI (urinary tract infection) (Inactive) Physical Therapy Inpatient Evaluation/Re-Eval M1 PT/OT-IP Prior Functional Status Start: 04/18/18 10:11 Freq: NEEDED Status: Active Protocol: Document 04/18/18 09:45 (Rec: 04/18/18 11:00 [id number]) Medical Review Prior Functional Status Medical History Reviewed Yes Communication Pt is POARCH. He is able to make needs known Mobility and Gait Pt's stated that pt is independent with all mobilities and amb without AD indoors prior to his first hospitalization at 03/30/18 . However, pt presented progressive weakness and multiple episodes of syncope since D/C 04/02/18. Pt's stated pt tends to unable to stand >45 secs, otherwise he will just fall due to weakness . Activities of Daily Living and IADL's Pt's helped showering, dressing and toileting due to his progressive weakness since last D/C. Pt required CGA for all mobility at home. Social History Household Members significant other Living Arrangements Apartment/Condo Number of Floors (Floors) One Floor Number of Stairs To Enter/Railing? 16 NIKKI Home Environment Standard Height Toilet Tub/Shower Home Equipment Front Wheel Walker Shower Seat with Backrest Grab Bars In Shower Employment Status Retired Additional Social History Comment Patient had apparently had two episodes of tremors when he was at PCP office. Patient has history of Metastatic Malignant Neoplasm to the lung , and has been getting treatment for this. Patient carries diagnosis of Pneumonia . Spoke to Vanessa, she is significant other that lives with patient in a apt on 2nd floor with [address]. She is his primary caregiver as well, helps with showers, toileting, dressing as needed. Patient does use a walker at home. M2 PT-IP Current Condition Start: 04/18/18 10:11 Freq: NEEDED Status: Active Protocol: Document 04/18/18 09:45 (Rec: 04/18/18 11:00 [id number]) Physical Therapy Current Condition Current Condition Evaluation Date 04/18/17 Treatment Diagnosis syncope, difficulty in walking , generalized muscle weakness Onset Date 04/17/17 Weight Bearing Status Weight Bearing Status Weight Bear as Tolerated M3 PT-IP Subjective Start: 04/18/18 10:11 Freq: NEEDED Status: Active Protocol: Document 04/22/18 13:39 [facility] (Rec: 04/22/18 13:53 [facility] [id number]) Subjective Physical Therapy Visit Type Type Re-Evaluation Visit Start Time 13:14 Visit Stop Time 13:39 Total Visit Minutes 25 Number of FOOD EDITOR Visits 0 Physical Therapy Visit Comments Patient Comments pt states that he is feeling better today Therapy Pain Assessment Pain Present Pain Present Denied Pain M4 PT-IP Mobility and Gait Start: 04/18/18 10:11 Freq: NEEDED Status: Active Protocol: Document 04/22/18 13:39 [facility] (Rec: 04/22/18 13:53 [facility] [id number]) PT-Bed Mobility Assessment Supine to Sit Supine to Sit Standby Assistance Sit to Supine Sit to Supine Contact Guard Assistance Scooting Scooting to Edge of Bed Contact Guard Assistance PT-Transfer Assessment Sit to and From Stand Sit to and from Stand Standby Assistance Equipment Transfer Assistive Device Gait Belt Front Wheeled Walker Transfers Transfer Destination Bed Transfer Technique Stand Step Pivot Transfer Ability Level of Assist Standby Assistance Comments Mobility Comments BP supine 134/85, MAP 105, WA 94 bpm sitting 134/72, MAP 96, WA 90 bpm standing 120/60, MAP 80, WA 101 bpm after gait (supine) 132/70, MAP 95, WA 101 bpm *no c/o dizziness or lightheadedness this session Gait Assessment Gait Gait Assistance Required: Standby Assistance Distance (Feet) 80 Assistive Devices Assistive Device Gait Belt Front Wheeled Walker Gait Deviations General Gait Pattern Decreased Stride Length Decreased Feet Clearance Factors Limiting Gait Function Factors Limiting Gait Function Decreased Activity Tolerance Decreased Strength Comments Gait Comments chair follow for safety PT-Balance Assessment Sitting Balance and Reactions Static Sitting Balance Ability Good Dynamic Sitting Balance Ability Good Standing Balance and Reactions Static Standing Balance Ability Good Dynamic Standing Balance Ability Fair Device Used FWW M5 PT-IP Objective Assessments Start: 04/18/18 10:11 Freq: NEEDED Status: Active Protocol: Document 04/18/18 09:45 [facility] (Rec: 04/18/18 11:00 [id number]) Orientation Orientation/Cognition Level of Alertness Alert Orientation Name Age Birthday Month Date Year Day of Week Place Situation Language Function Ability No Deficits Noted Safety Awareness Understands Safety Issues Memory Description No Deficits Noted Gross Range of Motion Upper Extremity ROM Assessment Within Functional Limits Lower Extremity ROM Assessment Within Functional Limits Strength Upper Extremity Strength Assessment Within Functional Limits Lower Extremity Strength Assessment Within Functional Limits Coordination Assessment Gross Coordination Gross Coordination WNL Sensation Assessment Sensation Gross Sensation WNL M6 PT-IP Treatment Start: 04/18/18 10:11 Freq: NEEDED Status: Active Protocol: Document 04/22/18 13:39 [facility] (Rec: 04/22/18 13:53 [facility] [id number]) Physical Therapy Treatment Education Education Provided Safety M7 PT-IP Assessment and Plan Start: 04/18/18 10:11 Freq: NEEDED Status: Active Protocol: Document 04/22/18 13:39 [facility] (Rec: 04/22/18 13:53 [facility] [id number]) PT Summary Assessment and Plan Potential Rehabilitation Potential Good Status of Condition at Evaluation Stable Summary Impairments Strength Balance Gait Activity Tolerance Assessment Summary Re-assessment of pt due to MD with new order for PT consultation and progress mobility. Pt without c/o dizziness or lightheadedness this session. BP did decrease by 14 systolic and 12 diastolic from sit to stand, but no symptoms or complaints (BP standing 120/60, safe mobility range). Pt's BP was WNL after gait. If pt continues to be able to tolerate mobility and gait without BP issues, he likely will be able to return home when medically stable. Goals Bed Mobility Goal Independent Transfer Goal Independent Gait Goal Standby Assistance Front Wheel Walker Gait Distance 150 Other Goals up/down 2 steps (6 step and then 4 step up into home- can use his walker for assist with managing his steps). Days to Meet Goals 5 Frequency of Treatment Frequency Of Treatment Once a Day Treatment Plan Physical Therapy Treatment Plan Bed Mobility Training Transfer Training Gait Training Therapeutic Exercise Balance Retraining Discharge Planning Neuromuscular Re-ed Other Recommendations and Next Treatment montior BP; gait and step Focus training prior to d/c Recommendations To Nursing Amount of Assist Needed 1 Person Assist Discharge Recommendations PT Discharge Recommendations Home with Assistance Home Health
--- NOTE | 2018-04-22 15:30 | PT.IPRE ---
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 (04/17/18) Atherosclerotic heart disease of [place] coronary artery without angina pectoris (04/17/18) Orthostatic hypotension (04/17/18) Pneumonia, unspecified organism (04/17/18) Rheumatoid arthritis, unspecified (04/17/18) Syncope and collapse (04/17/18) Hyperglycemia, unspecified (04/17/18) Surgical History (Last Reviewed 04/17/18 @ 17:18 by Aisha Helms MD) H/O umbilical hernia repair (Acute) H/O coronary angioplasty (Resolved) History of appendectomy (Resolved) History of cholecystectomy (Resolved) Medical History (Last Reviewed 04/17/18 @ 17:18 by Aisha Helms MD) 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) Thrombocytopenia (Chronic) Leukopenia (Chronic) Small cell lung cancer (Chronic) Renal insufficiency (Chronic) Coronary artery disease (Chronic) Depression (Chronic) Diabetes type 2, controlled (Chronic) Hyperlipidemia (Chronic) Hypertension (Chronic) Rheumatoid arthritis (Chronic) History of nephrolithotomy with removal of calculi (Resolved) History of pulmonary embolism (Resolved) Kidney stone (Resolved) Thrombophlebitis of arm, left (Resolved) UTI (urinary tract infection) (Inactive) Physical Therapy Inpatient Evaluation/Re-Eval M1 PT/OT-IP Prior Functional Status Start: 04/18/18 10:11 Freq: NEEDED Status: Active Protocol: Document 04/18/18 09:45 (Rec: 04/18/18 11:00 [id number]) Medical Review Prior Functional Status Medical History Reviewed Yes Communication Pt is [place]. He is able to make needs known Mobility and Gait Pt's stated that pt is independent with all mobilities and amb without AD indoors prior to his first hospitalization at 03/30/18 . However, pt presented progressive weakness and multiple episodes of syncope since D/C 04/02/18. Pt's stated pt tends to unable to stand >45 secs, otherwise he will just fall due to weakness . Activities of Daily Living and IADL's Pt's helped showering, dressing and toileting due to his progressive weakness since last D/C. Pt required CGA for all mobility at home. Social History Household Members significant other Living Arrangements Apartment/Condo Number of Floors (Floors) One Floor Number of Stairs To Enter/Railing? 16 NIKKI Home Environment Standard Height Toilet Tub/Shower Home Equipment Front Wheel Walker Shower Seat with Backrest Grab Bars In Shower Employment Status Retired Additional Social History Comment Patient had apparently had two episodes of tremors when he was at PCP office. Patient has history of Metastatic Malignant Neoplasm to the lung , and has been getting treatment for this. Patient carries diagnosis of Pneumonia . Spoke to Vanessa, she is significant other that lives with patient in a apt on 2nd floor with 16 NIKKI. She is his primary caregiver as well, helps with showers, toileting, dressing as needed. Patient does use a walker at home. M2 PT-IP Current Condition Start: 04/18/18 10:11 Freq: NEEDED Status: Active Protocol: Document 04/22/18 15:30 [facility] (Rec: 04/22/18 16:36 [facility] [email or web address]) Physical Therapy Current Condition Current Condition Evaluation Date 04/18/17 Treatment Diagnosis syncope, difficulty in walking , generalized muscle weakness Onset Date 04/17/17 Precautions Other Precautions Monitor BP M3 PT-IP Subjective Start: 04/18/18 10:11 Freq: NEEDED Status: Active Protocol: Document 04/22/18 15:30 [facility] (Rec: 04/22/18 16:36 [facility] [email or web address]) Subjective Physical Therapy Visit Type Type Re-Evaluation Visit Start Time 15:00 Visit Stop Time 15:30 Total Visit Minutes 30 Notes re-ordered PT as pt's BP in standing and sitting had stabilized. Number of ASSOCIATE PRODUCT INTEGRITY ENGINEER Visits 0 Physical Therapy Visit Comments Patient Comments pt states that he is feeling better today Therapy Pain Assessment Pain Present Pain Present Denied Pain M4 PT-IP Mobility and Gait Start: 04/18/18 10:11 Freq: NEEDED Status: Active Protocol: Document 04/22/18 15:30 [facility] (Rec: 04/22/18 16:36 [facility] [email or web address]) PT-Bed Mobility Assessment Supine to Sit Supine to Sit Standby Assistance Sit to Supine Sit to Supine Independent Scooting Scooting to Edge of Bed Contact Guard Assistance PT-Transfer Assessment Sit to and From Stand Sit to and from Stand Standby Assistance Equipment Transfer Assistive Device Gait Belt 4 Wheeled Walker Transfers Transfer Destination Bed Transfer Technique Stand Step Pivot Transfer Ability Level of Assist Standby Assistance Comments Mobility Comments BP supine 167/102, MAP 127, RI 74 bpm sitting 156/110, MAP 132, RI 89 bpm standing 122/60, MAP 76, RI 116 bpm after gait (supine) 162/109, MAP 136, RI 91 bpm *no c/o dizziness or lightheadedness this session Gait Assessment Gait Gait Assistance Required: Contact Guard Assist Distance (Feet) 150 Assistive Devices Assistive Device Gait Belt 4 Wheeled Walker Gait Deviations General Gait Pattern Decreased Feet Clearance Flexed Trunk Factors Limiting Gait Function Factors Limiting Gait Function Decreased Activity Tolerance Decreased Strength Poor Safety Awareness Comments Gait Comments w/c follow for safety, pt occasionally moving quickly with turning PT-Balance Assessment Sitting Balance and Reactions Static Sitting Balance Ability Good Dynamic Sitting Balance Ability Good Standing Balance and Reactions Static Standing Balance Ability Good Dynamic Standing Balance Ability Fair Device Used 4WW M5 PT-IP Objective Assessments Start: 04/18/18 10:11 Freq: NEEDED Status: Active Protocol: Document 04/18/18 09:45 [facility] (Rec: 04/18/18 11:00 [id number]) Orientation Orientation/Cognition Level of Alertness Alert Orientation Name Age Birthday Month Date Year Day of Week Place Situation Language Function Ability No Deficits Noted Safety Awareness Understands Safety Issues Memory Description No Deficits Noted Gross Range of Motion Upper Extremity ROM Assessment Within Functional Limits Lower Extremity ROM Assessment Within Functional Limits Strength Upper Extremity Strength Assessment Within Functional Limits Lower Extremity Strength Assessment Within Functional Limits Coordination Assessment Gross Coordination Gross Coordination WNL Sensation Assessment Sensation Gross Sensation WNL M6 PT-IP Treatment Start: 04/18/18 10:11 Freq: NEEDED Status: Active Protocol: Document 04/22/18 15:30 [facility] (Rec: 04/22/18 16:36 [facility] [email or web address]) Physical Therapy Treatment Education Education Provided Safety M7 PT-IP Assessment and Plan Start: 04/18/18 10:11 Freq: NEEDED Status: Active Protocol: Document 04/22/18 15:30 [facility] (Rec: 04/22/18 16:36 [facility] [email or web address]) PT Summary Assessment and Plan Potential Rehabilitation Potential Good Summary Impairments Strength Balance Gait Activity Tolerance Assessment Summary Re-assessment of pt due to MD with new order for PT consultation and progress mobility. Pt without c/o dizziness or lightheadedness this session. BP elevated prior to and after session ( 160s/100s), and did have a drop in BP in standing after 2 min to 122/60 but no c/o dizziness, lightheadedness or weakness. Initially started with gait in room and pt continued to have no symptoms, therefore progressed into the hallway with pushing w/c behind pt. Pt did not c/o fatigue, but did appear to have progressive forward lean using 4WW after ~150 ft of gait. Pt has many stairs to get into his home, and will need to be able to tolerate 16 steps for recommendation to return home. Recommend continuing to monitor BP when mobilizing pt. Goals Bed Mobility Goal Independent Transfer Goal Independent Gait Goal Standby Assistance Front Wheel Walker Gait Distance 150 Other Goals up/down 16 steps with B rails and CGA Days to Meet Goals 5 Frequency of Treatment Frequency Of Treatment Once a Day Treatment Plan Physical Therapy Treatment Plan Bed Mobility Training Transfer Training Gait Training Therapeutic Exercise Balance Retraining Discharge Planning Neuromuscular Re-ed Other Recommendations and Next Treatment montior BP; gait and step Focus training prior to d/c Recommendations To Nursing Amount of Assist Needed 1 Person Assist Discharge Recommendations PT Discharge Recommendations Home with Assistance Home Health
--- NOTE | 2018-04-22 17:36 | PC.NURSE ---
Evening shift 1530: Assumed care of pt with safe hand off. Safety checks done. Report done outside of room r/t pt working with PT. Othrostatic BP's done. WNL. Pt ambulate in halls with PT using a front wheel walker. Dressings changed and wound cleansed by day shift RN. [id number]: Pt assessed sitting up in chair. Denies pain at this time. Pt in room.
[2018-04-22] MEDS: ATORVASTATIN 20 MG TABLET 40 MG PO (21:41)
[2018-04-23] VITALS (10 sets, daily range): BP systolic 94–201; BP diastolic 48–123; PULSE 57–127; RESP 18; TEMP 36.5–37; O2SAT 94–99
[2018-04-23 05:08] LABS: Add Manual Diff / Slide Review NO; Basophils Absolute Auto 0 /uL (0-100); Basophils Percent Auto 0.5 % (0-2); Eosinophils Absolute Auto 0 /uL (0-450); Eosinophils Percent Auto 0.1 % (2-4); Hematocrit 38.6 % (41-53); Hemoglobin 13.1 g/dL (13.5-17.5); Lymphocytes Absolute Auto 1200 /uL (1100-4500); Lymphocytes Percent Auto 16.7 % (25-40); Mean Corpuscular HGB Conc 33.9 % (30-36); Mean Corpuscular Hemoglobin 33.3 PG (26-34); Mean Corpuscular Volume 98.3 fL (80-100); Monocytes Absolute Auto 400 /uL (0-900); Neutrophils Absolute Auto 5600 /uL (1500-7000); Neutrophils Percent Auto 76.7 % (50-75); Platelet Count 40 X10^3/uL (150-400); Red Blood Cell Count 3.93 X10^6/uL (4.5-5.9); Red Cell Distribution Width 15.1 % (11.6-14.8); White Blood Cell Count 7.3 X10^3/uL (4.5-11.0)
[2018-04-23 05:14] LABS: Alanine Aminotransferase 31 IU/L (21-72); Albumin 2.9 g/dL (3.5-5.0); Albumin Globulin Ratio 1.3 (1.0-2.8); Alkaline Phosphatase 46 U/L (38-126); Aspartate Aminotransferase 22 IU/L (17-59); BUN Creatinine Ratio 27.8 (6-22); Bilirubin Total 1.1 mg/dL (0.2-1.3); Blood Urea Nitrogen 25 mg/dL (9-20); Calcium 8.5 mg/dL (8.4-10.2); Carbon Dioxide 31 mmol/L (22-32); Chloride 103 mmol/L (98-107); Estimated Glomerular Filt Rate > 60.0 mL/min (>60); Globulin 2.3 g/dL (1.7-4.1); Glucose 134 mg/dL (80-110); HEMOLYSIS < 15 (0-50); Potassium 3.5 mmol/L (3.4-5.1); Sodium 140 mmol/L (137-145); Total Protein 5.2 g/dL (6.3-8.2)
--- NOTE | 2018-04-23 06:38 | P.PN_ITS ---
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 Overnight: The patient continued to be hypertensive with SBP 160's. The patient is resting in bedside chair comfortably and in no acute distress. He denies headache, lightheadedness, dizziness, shortness of breath, chest pain , abdominal pain, nausea, vomiting, fever, chills, dysuria, diarrhea or constipation. He is voiding and eliminating without difficulty. He is up ambulating with assistance. Orthostatic blood pressures improved/resolved today. Exam Vital Signs (past 8 hours): - 04/23/18 00:28 04/23/18 00:40 04/23/18 04:00 Temperature 98.1 F 98.3 F Pulse Rate 57 L 63 Pulse Rate [Orthostatic Lying] Pulse Rate [Orthostatic Sitting] Pulse Rate [Orthostatic Standing] Respiratory Rate 18 18 Blood Pressure 155/110 H 162/107 H Blood Pressure [Orthostatic Lying] Blood Pressure [Orthostatic Sitting] Blood Pressure [Orthostatic Standing] Pulse Oximetry 99 98 99 04/23/18 06:00 Temperature Pulse Rate Pulse Rate [Orthostatic Lying] 63 Pulse Rate [Orthostatic Sitting] 80 Pulse Rate [Orthostatic Standing] 127 H Respiratory Rate Blood Pressure Blood Pressure [Orthostatic Lying] 192/123 H Blood Pressure [Orthostatic Sitting] 164/98 H Blood Pressure [Orthostatic Standing] 94/48 L Pulse Oximetry Fraction of Inspired Oxygen 21 Oxygen Delivery Method Room Air,CPAP Oxygen Flow Rate 0 Narrative Exam Narrative: General: Elderly gentleman sitting in bed and in no acute distress, appears chronically ill, appropriately interactive. HEENT: Normocephalic, atraumatic. External ears without defect. Pupils equal, round, and reactive to light. Anicteric sclerae, moist conjunctivae, and no lid lag. Neck: Supple with full range of motion. No lymphadenopathy or thyromegaly. Cardiovascular: Regular rate and rhythm without murmurs, rubs, or gallops appreciated. Pulmonary: Clear to auscultation bilaterally without crackles, rhonchi or wheezes. Normal respiratory effort with no use of accessory muscles. Abdomen: Soft, bowel sounds present, non-tender, nondistended. No hepatosplenomegaly or masses appreciated. Extremities: No clubbing, cyanosis, or edema. Compression stockings in place. Skin: Normal temperature, turgor, and texture; no rash, ulcers, or subcutaneous nodules appreciated. Two 2cm chronic wounds on left flank status post debridement with mild erythema surrounding. Left upper extremity wound with bandage in place C/D/I. Neurological: Cranial nerves grossly intact. Psychiatric: Normal mood and affect. Alert and oriented to person, place, and time. Objective Labs Result Diagrams: 04/25/18 05:36 04/25/18 05:36 Labs: Laboratory Results - last 24 hr 04/23/18 04/23/18 04:52 04:52 WBC 7.3 RBC 3.93 L Hgb 13.1 L Hct 38.6 L MCV 98.3 MCH 33.3 MCHC 33.9 RDW 15.1 H Plt Count 40 L Neut % (Auto) 76.7 H Lymph % (Auto) 16.7 L Hyde % (Auto) 6.0 Eos % (Auto) 0.1 L Baso % (Auto) 0.5 Neut # (Auto) 5600 Lymph # (Auto) 1200 [place] # (Auto) 400 Eos # (Auto) 0 Baso # (Auto) 0 Sodium 140 Potassium 3.5 Chloride 103 Carbon Dioxide 31 BUN 25 H Creatinine 0.90 Estimated GFR > 60.0 BUN/Creatinine Ratio 27.8 H Glucose 134 H Calcium 8.5 Total Bilirubin 1.1 AST 22 ALT 31 Alkaline Phosphatase 46 Total Protein 5.2 L Albumin 2.9 L Globulin 2.3 Albumin/Globulin Ratio 1.3 Assessment & Plan Plan: Assessment/Plan Narrative: Nahun Cintron is a 78-year-old male with a past medical history significant for coronary artery disease status post coronary angioplasty, hypertension, hyperlipidemia, diabetes mellitus type 2, metastatic prostate cancer to bones, 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 1. Acute orthostatic hypotension, present on admission. Active. -Patient did not tolerate a trial of Florinef originally, with high blood pressures while supine, and now has not tolerated a 2 day trial of midodrine. The blood pressure overnight, while supine, kelton as high as 199/122. Coreg and Cardura were discontinued several days ago. We are re-trialing the fludrocortisone 1 more time. Compression stockings have now been placed with encouraging results and would consider abdominal binders as well. Considering [place] Myasthenia Sydrome (LEMS) or Myasthenia Gravis associated with SCLC and his autonomic dysreflexia. Acetylcholinesterase antibody has been ordered and pending but we were unable to order the [facility] antibody test for LEMS. We are also not able to do an EMG in this facility. There were no physical exam findings of rapid fatigue or sluggish pupils today. -Urine metanephrines pending as pheochromocytoma is rarely associated with hypertension and hypotension. -Ordered manual blood pressures only. 2. Acute adrenal insufficiency, present on admission. Active. -Patient has adrenal insufficiency which is a known side effect of Zytiga. The Zytiga has been discontinued and he has been tapered down on prednisone now on 40 mg daily. 3. Acute syncope secondary to orthostasis, present on admission. Resolved. -Treat orthostatic hypotension as above. 4. Chronic wounds on left flank status post cyst removal, present on admission. Stable. -Previous wound culture grew Staphylococcus lugundensis which according to Infectious Disease, Dr. Cuevas, is 100% mortality rate if it were to enter the blood stream. Completed several courses of antibiotics which cover this bacteria. -Ordered blood culture x2, pending. -Ordered repeat wound culture, pending. -Continue wound care. Will need wound care outpatient. 5. Recent left lower lobe community-acquired pneumonia. Resolved. -Completed a full course of antibiotics with cefepime and Levaquin. Previously completed course of ceftriaxone and Augmentin. 6. 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 Presumed stable. -Status post radiation to left lung and brain prophylactically and 4 rounds of chemotherapy with carboplatin and etoposide. SCLC stable without evidence of advancement on recent CT chest. 7. 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 Presumed stable. -He has metastatic prostate cancer with a high [place] score. His PSA is undetectable. He will be due for Lupron injection in April. Discontinued Zytiga 1 g daily outpatient per oncology. 8. Pancytopenia, chronic, present on admission. Stable. -Likely multifactorial and related to metastatic prostate cancer and small-cell cancer of the lung, as well as, multiple chemotherapies. Curiously, WBC within normal limits and higher than baseline during previous hospital admission -Continue to monitor blood counts daily. 9. Diabetes mellitus type 2, non-insulin using, present on admission. Presumed stable. -Last hemoglobin A1c 7.1%. -Continue metformin. -Continue low-dose correctional scale insulin and ACHS blood glucose checks. 10. CAD, present on admission. Presumed stable. -No active evidence of coronary disease. -Continue statin as below. 11. Hyperlipidemia, present on admission. Stable. -Continue atorvastatin 40 mg at bedtime. 12. Hypertension, present on admission. Stable. -Stopped Carvedilol 6.25 mg twice daily due to orthostatic hypotension. 13. Depression, present on admission. Stable. -Continue citalopram 10 mg daily. 14. BPH, present on admission. Presumed stable. -Stopped doxazosin 8 mg at bedtime due to orthostatic hypotension. 15. Rheumatoid arthritis, present on admission. Stable. -Continue methotrexate 10 mg weekly on Monday and folic acid 0.8 mg daily. 16. Recent left arm thrombophlebitis status post PICC line removal and history of PE, present on admission. Presumed stable. -Continue Xarelto 20 mg daily. 17. Glaucoma, chronic, present on admission. Stable. -Continue Timolol 1 dose left eye twice daily. Disposition: Likely to discharge in 2-3 days depending upon control of orthostatic hypotension and hypertension.
[2018-04-23] MEDS: PANTOPRAZOLE 20 MG TABLET PO (06:46)
[2018-04-23] MEDS: predniSONE 20 MG TABLET 40 MG PO (09:34)
[2018-04-23] MEDS: CITALOPRAM 10 MG TABLET PO (09:34)
[2018-04-23] MEDS: MULTIVITAMIN 1 TABLET 1 TAB PO (09:34)
[2018-04-23] MEDS: METFORMIN HCL 500 MG TABLET PO ×2 (09:35→16:52)
[2018-04-23] MEDS: FLUDROCORTISONE 0.1 MG TABLET PO ×2 (09:35→20:55)
[2018-04-23] MEDS: DOCUSATE 100 MG CAPSULE PO ×2 (09:35→20:54)
[2018-04-23] MEDS: FOLIC ACID 0.4 MG TABLET 0.8 MG PO (09:36)
[2018-04-23] MEDS: CHOLECALCIFEROL (VITAMIN D3) 1,000 UNIT TABLET 2000 UNIT PO (09:36)
[2018-04-23] MEDS: RIVAROXABAN 10 MG TABLET 20 MG PO (09:37)
[2018-04-23] MEDS: CALCIUM CARBONATE 600 MG TABLET 1200 MG PO (09:37)
[2018-04-23] MEDS: INSULIN ASPART 100 UNIT/ML INSULN PEN SUBCUT ×3 (09:43→20:55)
--- NOTE | 2018-04-23 13:23 | PT.IPTN ---
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 (04/17/18) Atherosclerotic heart disease of [place] coronary artery without angina pectoris (04/17/18) Orthostatic hypotension (04/17/18) Pneumonia, unspecified organism (04/17/18) Rheumatoid arthritis, unspecified (04/17/18) Syncope and collapse (04/17/18) Hyperglycemia, unspecified (04/17/18) Physical Therapy Treatment Note M2 PT-IP Current Condition Start: 04/18/18 10:11 Freq: NEEDED Status: Active Protocol: Document 04/22/18 15:30 [facility] (Rec: 04/22/18 16:36 [facility] [email or web address]) Physical Therapy Current Condition Current Condition Evaluation Date 04/18/17 Treatment Diagnosis syncope, difficulty in walking , generalized muscle weakness Onset Date 04/17/17 Precautions Other Precautions Monitor BP M3 PT-IP Subjective Start: 04/18/18 10:11 Freq: NEEDED Status: Active Protocol: Document 04/23/18 11:00 [facility] (Rec: 04/23/18 13:23 [id number]) Subjective Physical Therapy Visit Type Type Treatment Note Visit Start Time 11:00 Visit Stop Time 11:30 Total Visit Minutes 30 Notes Pt agreeable to PT with his at bedside. Pt's report pt's BP has been stabilied around 160s/100s Number of FLOATING OPERATOR Visits 0 Physical Therapy Visit Comments Patient Comments I feel pretty good today and ready to walk Therapy Pain Assessment Pain Present Pain Present Denied Pain M4 PT-IP Mobility and Gait Start: 04/18/18 10:11 Freq: NEEDED Status: Active Protocol: Document 04/23/18 11:00 [facility] (Rec: 04/23/18 13:23 [id number]) PT-Bed Mobility Assessment Supine to Sit Supine to Sit Independent Sit to Supine Sit to Supine Independent Scooting Scooting to Edge of Bed Standby Assistance PT-Transfer Assessment Sit to and From Stand Sit to and from Stand Standby Assistance Equipment Transfer Assistive Device Gait Belt 4 Wheeled Walker Transfers Transfer Destination Bed Transfer Technique Stand Step Pivot Transfer Ability Level of Assist Standby Assistance Comments Mobility Comments BP supine 161/89 HR 100 BP sitting 135/91 HR 119 BP sitting after 3 mins 147/95 HR 94 BP during ambualtion 116/91 HR 102 BP post ambulation 127/85 HR 101 BP 5 mins post ambulation 135/ 98 HR 114 Denies pain, lightheadedness and dizziness. Pt education to park his 4 ww against the wall for stability during sit <---> stand transfer. Gait Assessment Gait Gait Assistance Required: Contact Guard Assist Distance (Feet) 500 Assistive Devices Assistive Device Gait Belt 4 Wheeled Walker Gait Deviations General Gait Pattern Within Normal Limits Factors Limiting Gait Function Factors Limiting Gait Function Decreased Activity Tolerance Decreased Strength Poor Safety Awareness Comments Gait Comments w/c follow for safety. Pt amb from EOB to end of hallway with a 3 minute rest break every 100 feet. Pt was often impulsive and did not want to use 4ww from time to time. Cues required for safety awareness and slower turning speed. Stair Climbing Assessment Technique/Endurance Stair Climbing Direction Ascend and Descend Stair Climbing Technique Step Over Step Number of Steps Climbed 3 Query Text: Stair Climbing Set # Repetitions (reps) 4 Comments Stair Climbing Comments 3 steps with B rails. x 4 rounds with CGA PT-Balance Assessment Sitting Balance and Reactions Static Sitting Balance Ability Good Dynamic Sitting Balance Ability Good Standing Balance and Reactions Static Standing Balance Ability Good Dynamic Standing Balance Ability Fair Device Used 4WW M5 PT-IP Objective Assessments Start: 04/18/18 10:11 Freq: NEEDED Status: Active Protocol: Document 04/18/18 09:45 (Rec: 04/18/18 11:00 [id number]) Orientation Orientation/Cognition Level of Alertness Alert Orientation Name Age Birthday Month Date Year Day of Week Place Situation Language Function Ability No Deficits Noted Safety Awareness Understands Safety Issues Memory Description No Deficits Noted Gross Range of Motion Upper Extremity ROM Assessment Within Functional Limits Lower Extremity ROM Assessment Within Functional Limits Strength Upper Extremity Strength Assessment Within Functional Limits Lower Extremity Strength Assessment Within Functional Limits Coordination Assessment Gross Coordination Gross Coordination WNL Sensation Assessment Sensation Gross Sensation WNL M6 PT-IP Treatment Start: 04/18/18 10:11 Freq: NEEDED Status: Active Protocol: Document 04/23/18 11:00 (Rec: 04/23/18 13:23 [email or web address]) Physical Therapy Treatment Education Education Provided Safety M7 PT-IP Assessment and Plan Start: 04/18/18 10:11 Freq: NEEDED Status: Active Protocol: Document 04/23/18 11:00 (Rec: 04/23/18 13:23 [id number]) PT Summary Assessment and Plan Potential Rehabilitation Potential Good Status of Condition at Evaluation Stable Summary Impairments Strength Balance Gait Activity Tolerance Progress Towards Goals Progressing Toward Goals Assessment Summary Pt demonstrates significant improvements for functional mobility today. Pt amb >500 feet with 4WW x1pa and negotiated 3 steps x 4 rounds with CGA. Pt was impulsive from time to time to not use his walker. He also needs constant reminder for safety and slower for his turns and stair negotiation. Pt cont to present symptoms of OHTN during change of position. Pt 's bp tends to be stabilized once he is ambulating with his compression stockings on. Cont to monitor pt's BP and mobility status prior to d/c Goals Bed Mobility Goal Independent Transfer Goal Independent Gait Goal Standby Assistance Front Wheel Walker Gait Distance 150 Other Goals up/down 16 steps with B rails and CGA Days to Meet Goals 5 Frequency of Treatment Frequency Of Treatment Once a Day Treatment Plan Physical Therapy Treatment Plan Bed Mobility Training Transfer Training Gait Training Therapeutic Exercise Balance Retraining Discharge Planning Neuromuscular Re-ed Other Recommendations and Next Treatment montior BP; gait and step Focus training as tiffany prior to d/c Recommendations To Nursing Amount of Assist Needed 1 Person Assist Discharge Recommendations PT Discharge Recommendations Home with Assistance Home Health Equipment Needed for Home Before 4WW Discharge
--- NOTE | 2018-04-23 13:29 | OT.IP.TRT ---
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 (04/17/18) Atherosclerotic heart disease of [place] coronary artery without angina pectoris (04/17/18) Orthostatic hypotension (04/17/18) Pneumonia, unspecified organism (04/17/18) Rheumatoid arthritis, unspecified (04/17/18) Syncope and collapse (04/17/18) Hyperglycemia, unspecified (04/17/18) Occupational Therapy Treatment Note M3 OT- IP Subjective and Pain Start: 04/18/18 14:49 Freq: Status: Active Protocol: Document 04/23/18 13:28 [facility] (Rec: 04/23/18 13:29 [facility] [id number]) OT- Subjective Occupational Therapy Visit Type Type Patient Refusal Notes Attempted OT eval for pt. Pt and agreed that they are able to manage all OT needs and already have all OT equipment at home and therefore not wanting OT eval. Therefore discharge OT eval orders.
--- NOTE | 2018-04-23 15:44 | PC.NURSE ---
AM shift Pt is A/o x3, ambulating in halls with PT. BP remain variable. Manual BP ordered. Changed dressing to L hip, per wound care orders. Granulation tissue, pink. Cleansed with NS and wound culture obtained from wound bed per Dr Altamirano orders. Culture to lab.
[2018-04-23] MEDS: ATORVASTATIN 20 MG TABLET 40 MG PO (20:54)
[2018-04-24] VITALS (11 sets, daily range): BP systolic 90–165; BP diastolic 66–110; PULSE 62–107; RESP 17–20; TEMP 36.3–36.9; O2SAT 94–99
--- NOTE | 2018-04-24 | DI.ECHO.S_ITS ---
[facility]---------+ [facility] +---------+ : : [address] [place] [address] : : : : [id number] : : : : Phone: [phone]+ Echocardiogram Report + + :Name: TRAVIS GALE Study Date: 04/25/2018 Height: 68 in : :[facility] Weight: 199 lb : : Gender: Male BSA: 2.0 m2 : :: 1940 Age: 78 yrs BP: 168/105 mmHg: :Reason For Study: Hypotension : :Ordering Physician: MD Reardon A : :Kadeem Performed By: Viktoriya Falcon : :Referring: Dr. Gurdeep Cameron : + + Interpretation Summary The left ventricle is normal in size. Left ventricular wall thickness is moderate-severely increased. The ejection fraction is estimated to be 50-55%. The right ventricle grossly appears normal in size with probable normal systolic function. Pulmonary artery pressures cannot be estimated because of the lack of a measurable TR jet velocity but the IVC suggests a CVP of around 3 mmHg. The study quality suboptimal however there appears be subtle hypokinesis of the basal inferoseptal and inferior wall. -Overall this echo shows increased LV wall thickness and low normal ejection fraction without an etiology for patient's hypotension. -The blood pressure at the time of the study was 168/105. -When compared to the echo from 09/30/2017, there is now subtle hypokinesis of the basal inferior and inferoseptal wall. Recommend a limited echo with contrast if clinically indicated for wall motion assessment. Procedure: A two-dimensional transthoracic echocardiogram with color flow and Doppler was performed. Comparison is made with the echocardiogram of . The study quality was technically difficult. The patient was in normal sinus rhythm during the exam. Left Ventricle: The left ventricle is normal in size. Left ventricular wall thickness is moderate-severely increased. The ejection fraction is estimated to be 50-55%. The study quality suboptimal however there appears be subtle hypokinesis of the basal inferoseptal and inferior wall. Diastolic function could not be accurately assessed due to contradictory data. Right Ventricle: The right ventricle grossly appears normal in size with probable normal systolic function. Atria: The left atrium is moderately dilated. Right atrium not well visualized secondary to technical limitations. The interatrial septum is intact with no evidence for an atrial septal defect. Mitral Valve: The mitral valve leaflets appear borderline thickened, but open well. There is no mitral regurgitation noted. Aortic Valve: The aortic valve opens well. The aortic valve is trileaflet. There is no aortic valve stenosis. There is trace aortic regurgitation. Tricuspid Valve: The tricuspid valve is normal in structure and function. No tricuspid regurgitation. Pulmonary artery pressures cannot be estimated because of the lack of a measurable TR jet velocity but the IVC suggests a CVP of around 3 mmHg. Pulmonic Valve: The pulmonic valve is not well seen, but is grossly normal. There is trace pulmonic regurgitation. Great Vessels: The aortic root is mildly dilated. The ascending aorta is mild-moderately enlarged. The IVC is of normal diameter and collapses greater than 50% with a sniff. This suggests a low right atrial pressure of 3 mm Hg. Pericardium/ Pleura There is no pericardial effusion. There is no pleural effusion. MMode/2D Measurements & Calculations LVIDd: 5.6 cm Ao root diam: 4.2 cm LVIDs: 3.4 cm Aortic Jxn: 3.2 cm FS: 38.5 % asc Aorta Diam: 4.0 cm EPSS: 1.6 cm Ao Arch Diam (Prox Trans): 2.8 cm IVSd: 1.6 cm LVPWd: 1.0 cm LV burgos. diameter/BSA (cm/m^2): 2.7 LV sys. diameter/BSA (cm/m^2): 1.7 LA dimension: 4.7 cm IVC diam: 1.4 cm LA A2 area: 24.3 cm2 LA A4 area: 26.3 cm2 LA length (vol): 6.2 cm LA vol: 87.9 ml LA vol index: 43.1 ml/m2 LVAd ap4: 26.7 cm2 LVAs ap4: 12.6 cm2 LVLs ap4: 5.5 cm Doppler Measurements & Calculations Ao V2 max: 99.9 cm/sec MV E max rayshawn: 36.1 cm/sec Ao V2 mean: 61.6 cm/sec MV A max rayshawn: 100.1 cm/sec Ao max P.0 mmHg MV E/A: 0.36 Ao mean P.9 mmHg Med Peak E' Rayshawn: 3.4 cm/sec Ao V2 VTI: 18.1 cm E/E' med: 10.7 Lat Peak E' Rayshawn: 2.4 cm/sec E/E' lat: 14.9 E/e' average: 12.8 MV dec time: 0.31 sec MV P1/2t: 88.3 msec PA V2 max: 54.3 cm/sec MV P1/2t max rayshawn: 35.8 cm/sec PA V2 mean: 34.4 cm/sec MVA(P1/2t): 2.5 cm2 PA mean P.57 mmHg PA Accel Time: 0.09 sec Electronically signed by: Ernie Su M.D. on Reading Physician:04/25/2018 07:09 PM
[2018-04-24] MEDS: PANTOPRAZOLE 20 MG TABLET PO (06:08)
[2018-04-24 06:28] LABS: Add Manual Diff / Slide Review NO; Basophils Absolute Auto 0 /uL (0-100); Basophils Percent Auto 0.4 % (0-2); Eosinophils Absolute Auto 0 /uL (0-450); Eosinophils Percent Auto 0.3 % (2-4); Hematocrit 40.5 % (41-53); Hemoglobin 13.5 g/dL (13.5-17.5); Lymphocytes Absolute Auto 1500 /uL (1100-4500); Lymphocytes Percent Auto 19.4 % (25-40); Mean Corpuscular HGB Conc 33.4 % (30-36); Mean Corpuscular Hemoglobin 33.1 PG (26-34); Mean Corpuscular Volume 99.2 fL (80-100); Monocytes Absolute Auto 500 /uL (0-900); Monocytes Percent Auto 6.3 % (3-14); Neutrophils Absolute Auto 5800 /uL (1500-7000); Neutrophils Percent Auto 73.6 % (50-75); Platelet Count 41 X10^3/uL (150-400); Red Blood Cell Count 4.08 X10^6/uL (4.5-5.9); Red Cell Distribution Width 15.5 % (11.6-14.8); White Blood Cell Count 7.8 X10^3/uL (4.5-11.0)
[2018-04-24 06:32] LABS: BUN Creatinine Ratio 31.3 (6-22); Blood Urea Nitrogen 25 mg/dL (9-20); Calcium 8.4 mg/dL (8.4-10.2); Carbon Dioxide 30 mmol/L (22-32); Chloride 101 mmol/L (98-107); Estimated Glomerular Filt Rate > 60.0 mL/min (>60); Glucose 124 mg/dL (80-110); HEMOLYSIS < 15 (0-50); Magnesium 1.9 mg/dL (1.6-2.3); Phosphorous 3.1 mg/dL (2.3-3.7); Potassium 3.2 mmol/L (3.4-5.1); Sodium 138 mmol/L (137-145)
[2018-04-24 06:35] LABS: Hemoglobin A1C% w Est Avg Glu 6.3 % (4.0-6.0)
--- NOTE | 2018-04-24 08:27 | PM.PN.1 ---
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 Overnight: The patient continued to be hypertensive with SBP 160-180's. The patient is resting in bed comfortably and in no acute distress. He is eager to go home. He continues to have orthostasis (mildly improved) despite medical therapy. He denies headache, lightheadedness, dizziness, shortness of breath, chest pain, abdominal pain, nausea, vomiting, fever, chills, dysuria, diarrhea or constipation. He is voiding and eliminating without difficulty. He is up ambulating with assistance. Exam Vital Signs (past 8 hours): - 04/24/18 00:30 04/24/18 00:43 04/24/18 06:20 Temperature 97.3 F L 97.3 F L Pulse Rate 62 62 Pulse Rate [Orthostatic Lying] 62 Pulse Rate [Orthostatic Sitting] 67 Pulse Rate [Orthostatic Standing] 107 H Respiratory Rate 18 17 Blood Pressure 160/100 H 150/100 H Blood Pressure [Orthostatic Lying] 150/100 H Blood Pressure [Orthostatic Sitting] 160/110 H Blood Pressure [Orthostatic Standing] 90/70 Pulse Oximetry 99 99 97 Fraction of Inspired Oxygen 21 Oxygen Delivery Method CPAP Oxygen Flow Rate 0 Narrative Exam Narrative: General: Elderly gentleman sitting in bed and in no acute distress, appears chronically ill, appropriately interactive. HEENT: Normocephalic, atraumatic. External ears without defect. Pupils equal, round, and reactive to light. Anicteric sclerae, moist conjunctivae, and no lid lag. Neck: Supple with full range of motion. No lymphadenopathy or thyromegaly. Cardiovascular: Regular rate and rhythm without murmurs, rubs, or gallops appreciated. Pulmonary: Clear to auscultation bilaterally without wheeze, rhonchi or crackles. Normal respiratory effort with no use of accessory muscles. Abdomen: Soft, bowel sounds present, non-tender, nondistended. No hepatosplenomegaly or masses appreciated. Extremities: No clubbing, cyanosis, or edema. Skin: Normal temperature, turgor, and texture; no rash, ulcers, or subcutaneous nodules appreciated. Two 2cm chronic wounds on left flank status post debridement with mild erythema surrounding. Left upper extremity wound with bandage in place C/D/I. Neurological: Cranial nerves grossly intact. Psychiatric: Normal mood and affect. Alert and oriented to person, place, and time. Objective Labs Result Diagrams: 04/25/18 05:36 04/25/18 05:36 Labs: Laboratory Results - last 24 hr 04/24/18 04/24/18 04/24/18 05:50 05:50 05:50 WBC 7.8 RBC 4.08 L Hgb 13.5 Hct 40.5 L MCV 99.2 MCH 33.1 MCHC 33.4 RDW 15.5 H Plt Count 41 L Neut % (Auto) 73.6 Lymph % (Auto) 19.4 L [place] % (Auto) 6.3 Eos % (Auto) 0.3 L Baso % (Auto) 0.4 Neut # (Auto) 5800 Lymph # (Auto) 1500 [place] # (Auto) 500 Eos # (Auto) 0 Baso # (Auto) 0 Sodium 138 Potassium 3.2 L Chloride 101 Carbon Dioxide 30 BUN 25 H Creatinine 0.80 Estimated GFR > 60.0 BUN/Creatinine Ratio 31.3 H Glucose 124 H Hemoglobin A1c 6.3 H Calcium 8.4 Phosphorus 3.1 Magnesium 1.9 Assessment & Plan Plan: Assessment/Plan Narrative: Nahun Cintron is a 78-year-old male with a past medical history significant for coronary artery disease status post coronary angioplasty, hypertension, hyperlipidemia, diabetes mellitus type 2, 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 1. Acute orthostatic hypotension, present on admission. Active. -Have trialed Florinef x 2 and midodrine with significant hypertension and minimal benefit in orthostatic hypotension. -Compression stockings have been placed with encouraging results and ordered an abdominal binder today. Considering paraneoplastic syndrome such as [place] Myasthenia Sydrome (LEMS) or Myasthenia Gravis associated with SCLC and his autonomic dysreflexia. Acetylcholinesterase antibody has been ordered. Discussed paraneoplastic syndrome with his oncologist, Dr. Ortiz, who recommends ordering paraneoplastic panel but is uncertain that this is related to his SCLC as this is usually present prior to initiation of chemotherapy or in highly active and not contained SCLC. We are also not able to do an EMG in this facility. There were no physical exam findings of rapid fatigue or sluggish pupils today. -Urine metanephrines pending as pheochromocytoma is rarely associated with hypertension and hypotension. -Continue manual blood pressures ONLY. Blood pressures tend to fluctuate quite readily. Repeat blood pressure several times to get accurate and average reading. 2. Acute adrenal insufficiency, present on admission. Active. -Patient has adrenal insufficiency which is a known side effect of Zytiga. The Zytiga has been discontinued and he has been tapered down on prednisone now on 40 mg daily. 3. Acute syncope secondary to orthostasis, present on admission. Resolved. -Treat orthostatic hypotension as above. 4. Chronic wounds on left flank status post cyst removal, present on admission. Stable. -Previous wound culture grew Staphylococcus lugundensis which according to Infectious Disease, Dr. Cuevas, is 100% mortality rate if it were to enter the blood stream. Completed several courses of antibiotics which cover this bacteria. -Ordered blood culture x2 which has no growth to date. -Ordered repeat wound culture preliminarily has no growth. -Continue wound care. Will need wound care outpatient. 5. Recent left lower lobe community-acquired pneumonia. Resolved. -Completed a full course of antibiotics with cefepime and Levaquin. Previously completed course of ceftriaxone and Augmentin. 6. 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 Presumed stable. -Status post radiation to left lung and brain prophylactically and 4 rounds of chemotherapy with carboplatin and etoposide. SCLC stable without evidence of advancement on recent CT chest. 7. 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 Presumed stable. -He has metastatic prostate cancer with a high [place] score. His PSA is undetectable. He will be due for Lupron injection in April. Discontinued Zytiga 1 g daily outpatient per oncology. 8. Pancytopenia, chronic, present on admission. Stable. -Likely multifactorial and related to metastatic prostate cancer and small-cell cancer of the lung, as well as, multiple chemotherapies. WBC within normal limits and higher than baseline during previous hospital admission likely secondary to glucocorticoid. -Continue to monitor blood counts daily. 9. Diabetes mellitus type 2, non-insulin using, present on admission. Presumed stable. -Last hemoglobin A1c 7.1%. -Continue metformin. -Continue low-dose correctional scale insulin and ACHS blood glucose checks. 10. CAD, present on admission. Presumed stable. -No active evidence of coronary disease. -Continue statin as below. 11. Hyperlipidemia, present on admission. Stable. -Continue atorvastatin 40 mg at bedtime. 12. Hypertension, present on admission. Stable. -Stopped Carvedilol 6.25 mg twice daily due to orthostatic hypotension. 13. Depression, present on admission. Stable. -Continue citalopram 10 mg daily. 14. BPH, present on admission. Presumed stable. -Stopped doxazosin 8 mg at bedtime due to orthostatic hypotension. 15. Rheumatoid arthritis, present on admission. Stable. -Continue methotrexate 10 mg weekly on Monday and folic acid 0.8 mg daily. 16. Recent left arm thrombophlebitis status post PICC line removal and history of PE, present on admission. Presumed stable. -Continue Xarelto 20 mg daily. 17. Glaucoma, chronic, present on admission. Stable. -Continue Timolol 1 dose left eye twice daily. Disposition: Likely to discharge in 1-2 days depending upon control of orthostatic hypotension and hypertension.
[2018-04-24] MEDS: POTASSIUM CHLORIDE 20 MEQ/15 ML UDC PO ×2 (08:43→18:44)
[2018-04-24] MEDS: METFORMIN HCL 500 MG TABLET PO ×2 (08:43→16:57)
[2018-04-24] MEDS: RIVAROXABAN 10 MG TABLET 20 MG PO (08:43)
[2018-04-24] MEDS: CHOLECALCIFEROL (VITAMIN D3) 1,000 UNIT TABLET 2000 UNIT PO (08:44)
[2018-04-24] MEDS: CITALOPRAM 10 MG TABLET PO (08:44)
[2018-04-24] MEDS: FOLIC ACID 0.4 MG TABLET 0.8 MG PO (08:45)
[2018-04-24] MEDS: predniSONE 20 MG TABLET 40 MG PO (08:45)
[2018-04-24] MEDS: DOCUSATE 100 MG CAPSULE PO ×2 (08:45→20:52)
[2018-04-24] MEDS: FLUDROCORTISONE 0.1 MG TABLET PO (08:45)
[2018-04-24] MEDS: MULTIVITAMIN 1 TABLET 1 TAB PO (08:45)
[2018-04-24] MEDS: SODIUM CHLORIDE 0.9% FLUSH 10 ML IV ×2 (08:46→20:53)
[2018-04-24] MEDS: CALCIUM CARBONATE 500 MG TAB 1000 MG PO (08:56)
--- NOTE | 2018-04-24 10:36 | PC.NURSE ---
Addendum entered by Tammy Jacques R.N. 04/24/18 14:48: BINDER - the XL did reach accross and able to velcro, fit snug, per Raphael in purchasing, no addl sizes available. Original Note: Addendum entered by Tammy Jacques R.N. 04/24/18 14:39: MS - an abd binder was placed now in anticipation of mobilization. Original Note: Addendum entered by Tammy Jacques R.N. 04/24/18 12:35: NARES - pt lying side, some bright sero sang drainage nares on l originally, pressure applied, when released, some serosang drainage on r nares, pt upright and pinching across bridge nose, discussed with , will review labs and xaralto. Original Note: AM NOTE - alert, mildly KAKE, wearing aids, no complaints pain, no nausea, cbg 115 this am, tiffany diet, prior to mobilizing, pt lying bp 165/105, sat in chair and bp108/66, when stood bp 102/70, sat back down and phys therapy in to mobilize, bp remained 110/89 after walk and stair practice, denied any dizziness, wearing kobe abdoul hose, allevyn dsg l hip w/2 small spots brown drainage, no leakage, allevyn l elbow cdi, ra 96%, ret to bed after mobilization, spouse at bedside.
--- NOTE | 2018-04-24 11:51 | PT.IPTN ---
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 (04/17/18) Atherosclerotic heart disease of [place] coronary artery without angina pectoris (04/17/18) Orthostatic hypotension (04/17/18) Pneumonia, unspecified organism (04/17/18) Rheumatoid arthritis, unspecified (04/17/18) Syncope and collapse (04/17/18) Hyperglycemia, unspecified (04/17/18) Physical Therapy Treatment Note M2 PT-IP Current Condition Start: 04/18/18 10:11 Freq: NEEDED Status: Active Protocol: Document 04/22/18 15:30 [facility] (Rec: 04/22/18 16:36 [facility] [id number]) Physical Therapy Current Condition Current Condition Evaluation Date 04/18/17 Treatment Diagnosis syncope, difficulty in walking , generalized muscle weakness Onset Date 04/17/17 Precautions Other Precautions Monitor BP M3 PT-IP Subjective Start: 04/18/18 10:11 Freq: NEEDED Status: Active Protocol: Document 04/24/18 10:30 RS (Rec: 04/24/18 11:51 RS [id number]) Subjective Physical Therapy Visit Type Type Treatment Note Visit Start Time 10:00 Visit Stop Time 10:30 Total Visit Minutes 30 Physical Therapy Visit Comments Patient Comments Pt eager to take a walk, SO agreeable to perform a wc follow. Patient Goals go home LAUREN Therapy Pain Assessment Pain Present Pain Present Denied Pain M4 PT-IP Mobility and Gait Start: 04/18/18 10:11 Freq: NEEDED Status: Active Protocol: Document 04/24/18 10:30 RS (Rec: 04/24/18 11:51 RS [id number]) PT-Bed Mobility Assessment Supine to Sit Supine to Sit Independent Sit to Supine Sit to Supine Independent Scooting Scooting to Edge of Bed Independent PT-Transfer Assessment Sit to and From Stand Sit to and from Stand Standby Assistance Equipment Transfer Assistive Device Gait Belt 4 Wheeled Walker Transfers Transfer Destination Bed Chair Transfer Technique walked Transfer Ability Level of Assist Standby Assistance Comments Mobility Comments BP sitting 110/84, no change with immediate standing. Gait Assessment Gait Gait Assistance Required: Contact Guard Assist Distance (Feet) 500 Assistive Devices Assistive Device Gait Belt 4 Wheeled Walker Gait Deviations General Gait Pattern Within Normal Limits Factors Limiting Gait Function Factors Limiting Gait Function Decreased Activity Tolerance Decreased Strength Poor Safety Awareness Comments Gait Comments WC follow again for safety and intermittent reminders for keeping hands on walker. However, pt was able to walk without any rest breaks. Pt leaning and peering into each room without LOB, says he's looking for the doctor so he can get out of here. Stair Climbing Assessment Technique/Endurance Stair Climbing Direction Ascend and Descend Stair Climbing Technique Step Over Step Number of Steps Climbed 3 Query Text: Stair Climbing Set # Repetitions (reps) 5 Comments Stair Climbing Comments 3 steps with B rails. x 5 rounds with CGA, no rest PT-Balance Assessment Sitting Balance and Reactions Static Sitting Balance Ability Good Dynamic Sitting Balance Ability Good Standing Balance and Reactions Static Standing Balance Ability Good Dynamic Standing Balance Ability Fair Device Used 4WW Comments Other Balance Tests/Deviations/Treatment some [place] and DGI items were : completed while walking without LOB. M5 PT-IP Objective Assessments Start: 04/18/18 10:11 Freq: NEEDED Status: Active Protocol: Document 04/18/18 09:45 [facility] (Rec: 04/18/18 11:00 [id number]) Orientation Orientation/Cognition Level of Alertness Alert Orientation Name Age Birthday Month Date Year Day of Week Place Situation Language Function Ability No Deficits Noted Safety Awareness Understands Safety Issues Memory Description No Deficits Noted Gross Range of Motion Upper Extremity ROM Assessment Within Functional Limits Lower Extremity ROM Assessment Within Functional Limits Strength Upper Extremity Strength Assessment Within Functional Limits Lower Extremity Strength Assessment Within Functional Limits Coordination Assessment Gross Coordination Gross Coordination WNL Sensation Assessment Sensation Gross Sensation WNL M6 PT-IP Treatment Start: 04/18/18 10:11 Freq: NEEDED Status: Active Protocol: Document 04/23/18 11:00 [facility] (Rec: 04/23/18 13:23 [id number]) Physical Therapy Treatment Education Education Provided Safety M7 PT-IP Assessment and Plan Start: 04/18/18 10:11 Freq: NEEDED Status: Active Protocol: Document 04/24/18 10:30 RS (Rec: 04/24/18 11:51 RS [id number]) PT Summary Assessment and Plan Potential Rehabilitation Potential Good Status of Condition at Evaluation Stable Summary Impairments Strength Balance Gait Activity Tolerance Progress Towards Goals Progressing Toward Goals Assessment Summary Pt's main limiting factors at this time are impulsivity and variable BP. However, pt's BP was relatively stable during this session (110/84 starting, 100/80 ending) and was completely asymptomatic for [place] . Pt needs intermittent cues for safety but was relatively stable t/o entire session. Per interdisciplinary huddle, an abdominal binder will be trialed with pt today or tomorrow to assess for better BP control. Goals Bed Mobility Goal Independent Transfer Goal Independent Gait Goal Standby Assistance Front Wheel Walker Gait Distance 150 Other Goals up/down 16 steps with B rails and CGA Days to Meet Goals 3 Frequency of Treatment Frequency Of Treatment Once a Day Treatment Plan Physical Therapy Treatment Plan Bed Mobility Training Transfer Training Gait Training Therapeutic Exercise Balance Retraining Discharge Planning Neuromuscular Re-ed Other Recommendations and Next Treatment trial abdominal binder Focus Recommendations To Nursing Amount of Assist Needed 1 Person Assist Discharge Recommendations PT Discharge Recommendations Home with Assistance Home Health Equipment Needed for Home Before 4WW Discharge
[2018-04-24] MEDS: INSULIN ASPART 100 UNIT/ML INSULN PEN SUBCUT ×3 (13:01→21:08)
[2018-04-24] MEDS: POTASSIUM CHLORIDE 40 MEQ in SODIUM CHLORIDE 0.9% 500 ML 130 ML IV (18:44)
[2018-04-24] MEDS: ATORVASTATIN 20 MG TABLET 40 MG PO (20:52)
[2018-04-25 02:33] VITALS: BP 120/70; BP 146/72; BP 152/86; PULSE 80; PULSE 86; RESP 18; TEMP 36.7
--- NOTE | 2018-04-25 02:38 | PC.NURSE ---
Addendum entered by Tung Erickson R.N. 04/25/18 04:17: 0230(cont.) IV K-rider discontinued. Original Note: Director Field Services Note: 0040: Sleeping, wakes easily. Pt wearing home CPAP on room air. IV in rt forearm is in place, with K-rider infusing at 50cc/hr due to pain at insertion site when infusing any faster. IV site is without redness or swelling. at bedside. 0230: Pt awake, having pain at IV site. Hospitalist notifed by phone of continued discomfort at IV site. New order given for one time dose of 40mEq oral KCL. Orthostatic blood pressures done at this time with 2 person assist.
[2018-04-25 05:58] LABS: Add Manual Diff / Slide Review NO; Basophils Absolute Auto 0 /uL (0-100); Basophils Percent Auto 0.2 % (0-2); Eosinophils Absolute Auto 100 /uL (0-450); Eosinophils Percent Auto 0.7 % (2-4); Hematocrit 38.2 % (41-53); Hemoglobin 12.8 g/dL (13.5-17.5); Lymphocytes Absolute Auto 1900 /uL (1100-4500); Lymphocytes Percent Auto 24.9 % (25-40); Mean Corpuscular HGB Conc 33.5 % (30-36); Mean Corpuscular Hemoglobin 33.2 PG (26-34); Mean Corpuscular Volume 99.1 fL (80-100); Monocytes Absolute Auto 500 /uL (0-900); Monocytes Percent Auto 6.3 % (3-14); Neutrophils Absolute Auto 5300 /uL (1500-7000); Neutrophils Percent Auto 67.9 % (50-75); Platelet Count 44 X10^3/uL (150-400); Red Blood Cell Count 3.85 X10^6/uL (4.5-5.9); White Blood Cell Count 7.8 X10^3/uL (4.5-11.0)
[2018-04-25 06:00] VITALS: BP 180/94; PULSE 72; RESP 18
[2018-04-25 06:05] LABS: Alanine Aminotransferase 34 IU/L (21-72); Albumin 2.8 g/dL (3.5-5.0); Albumin Globulin Ratio 1.2 (1.0-2.8); Alkaline Phosphatase 45 U/L (38-126); Aspartate Aminotransferase 20 IU/L (17-59); BUN Creatinine Ratio 27.8 (6-22); Blood Urea Nitrogen 25 mg/dL (9-20); Calcium 8.3 mg/dL (8.4-10.2); Carbon Dioxide 29 mmol/L (22-32); Chloride 106 mmol/L (98-107); Estimated Glomerular Filt Rate > 60.0 mL/min (>60); Globulin 2.3 g/dL (1.7-4.1); Glucose 114 mg/dL (80-110); HEMOLYSIS < 15 (0-50); Magnesium 1.9 mg/dL (1.6-2.3); Potassium 3.4 mmol/L (3.4-5.1); Sodium 140 mmol/L (137-145); Total Protein 5.1 g/dL (6.3-8.2)
[2018-04-25] MEDS: POTASSIUM CHLORIDE 20 MEQ/15 ML UDC 40 MEQ PO (06:45)
--- NOTE | 2018-04-25 06:56 | PM.PN.1 ---
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 Overnight: Yesterday afternoon the patient had a bloody nose and his Xarelto has been held as his platelets are 41,000. The patient continued to be hypertensive overnight with SBP 160-180's. The patient is resting in bed comfortably and in no acute distress. He is eager to go home. He continues to have orthostasis (mildly improved) despite medical therapy. He denies headache, lightheadedness, dizziness, shortness of breath, chest pain, abdominal pain, nausea, vomiting, fever, chills, dysuria, diarrhea or constipation. He is voiding and eliminating without difficulty. He is up ambulating with assistance. Exam Vital Signs (past 8 hours): - 04/25/18 02:33 04/25/18 06:00 Temperature 98.1 F Pulse Rate 80 72 Pulse Rate [Orthostatic Sitting] 80 Pulse Rate [Orthostatic Standing] 86 Respiratory Rate 18 18 Blood Pressure 152/86 H 180/94 H Blood Pressure [Orthostatic Lying] 152/86 H Blood Pressure [Orthostatic Sitting] 146/72 H Blood Pressure [Orthostatic Standing] 120/70 Fraction of Inspired Oxygen 21 Oxygen Delivery Method Room Air,CPAP Oxygen Flow Rate 0 Narrative Exam Narrative: General: Elderly gentleman sitting in bed and in no acute distress, appears chronically ill, appropriately interactive. HEENT: Normocephalic, atraumatic. External ears without defect. Pupils equal, round, and reactive to light. Anicteric sclerae, moist conjunctivae, and no lid lag. Neck: Supple with full range of motion. No lymphadenopathy or thyromegaly. Cardiovascular: Regular rate and rhythm without murmurs, rubs, or gallops appreciated. Pulmonary: Clear to auscultation bilaterally with scattered rhonchi. No wheeze or crackles. Normal respiratory effort with no use of accessory muscles. Abdomen: Soft, bowel sounds present, non-tender, nondistended. No hepatosplenomegaly or masses appreciated. Extremities: No clubbing, cyanosis, or edema. Skin: Normal temperature, turgor, and texture; no rash, ulcers, or subcutaneous nodules appreciated. Two 2cm chronic wounds on left flank status post debridement with mild erythema surrounding. Left upper extremity wound with bandage in place C/D/I. Neurological: Cranial nerves grossly intact. Psychiatric: Normal mood and affect. Alert and oriented to person, place, and time. Objective Labs Result Diagrams: 04/25/18 05:36 04/25/18 05:36 Labs: Laboratory Results - last 24 hr 04/25/18 04/25/18 05:36 05:36 WBC 7.8 RBC 3.85 L Hgb 12.8 L Hct 38.2 L MCV 99.1 MCH 33.2 MCHC 33.5 RDW 15.0 H Plt Count 44 L Neut % (Auto) 67.9 Lymph % (Auto) 24.9 L [place] % (Auto) 6.3 Eos % (Auto) 0.7 L Baso % (Auto) 0.2 Neut # (Auto) 5300 Lymph # (Auto) 1900 [place] # (Auto) 500 Eos # (Auto) 100 Baso # (Auto) 0 Sodium 140 Potassium 3.4 Chloride 106 Carbon Dioxide 29 BUN 25 H Creatinine 0.90 Estimated GFR > 60.0 BUN/Creatinine Ratio 27.8 H Glucose 114 H Calcium 8.3 L Magnesium 1.9 Total Bilirubin 1.0 AST 20 ALT 34 Alkaline Phosphatase 45 Total Protein 5.1 L Albumin 2.8 L Globulin 2.3 Albumin/Globulin Ratio 1.2 Cortisol AM Sample 1.20 L Assessment & Plan Plan: Assessment/Plan Narrative: Nahun Cintron is a 78-year-old male with a past medical history significant for coronary artery disease status post coronary angioplasty, hypertension, hyperlipidemia, diabetes mellitus type 2, 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 1. Acute orthostatic hypotension, present on admission. Active. -Have trialed Florinef x 2 and midodrine with significant hypertension and minimal benefit in orthostatic hypotension. -Compression stockings have been placed with encouraging results and ordered an abdominal binder today. Considering paraneoplastic syndrome such as Lambert Eaton Myasthenia Sydrome (LEMS) or Myasthenia Gravis associated with SCLC and his autonomic dysreflexia. Acetylcholinesterase antibody has been ordered. Discussed paraneoplastic syndrome with his oncologist, Dr. Ortiz, who recommends ordering paraneoplastic panel but is uncertain that this is related to his SCLC as this is usually present prior to initiation of chemotherapy or in highly active and not contained SCLC. We are also not able to do an EMG in this facility. There were no physical exam findings of rapid fatigue or sluggish pupils today. -Urine metanephrines pending as pheochromocytoma is rarely associated with hypertension and hypotension. -Continue manual blood pressures ONLY. Blood pressures tend to fluctuate quite readily but improving overall. Repeat blood pressure several times to get accurate and average reading. Patient is feeling stronger daily and does not report lightheadedness or dizziness upon standing or with walking. -Ordered echocardiogram to rule out CHF as component of orthostasis, pending. 2. Acute adrenal insufficiency, present on admission. Active. -Patient has adrenal insufficiency which is a known side effect of Zytiga. The Zytiga has been discontinued and he has been tapered down on prednisone now on 40 mg daily. 3. Acute syncope secondary to orthostasis, present on admission. Resolved. -Treat orthostatic hypotension as above. 4. Chronic wounds on left flank status post cyst removal, present on admission. Slowly improving. -Previous wound culture grew Staphylococcus lugundensis which according to Infectious Disease, Dr. Cuevas, is 100% mortality rate if it were to enter the blood stream. Completed several courses of antibiotics which cover this bacteria. -Ordered blood culture x2 has no growth to date. -Ordered repeat wound culture has no growth. -Continue wound care. Will need wound care outpatient. 5. Recent left lower lobe community-acquired pneumonia. Resolved. -Completed a full course of antibiotics with cefepime and Levaquin. Previously completed course of ceftriaxone and Augmentin. 6. 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 Presumed stable. -Status post radiation to left lung and brain prophylactically and 4 rounds of chemotherapy with carboplatin and etoposide. SCLC stable without evidence of advancement on recent CT chest. 7. 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 Presumed stable. -He has metastatic prostate cancer with a high Tanisha score. His PSA is undetectable. He will be due for Lupron injection in April. Discontinued Zytiga 1 g daily outpatient per oncology. 8. Pancytopenia, chronic, present on admission. Stable. -Likely multifactorial and related to metastatic prostate cancer and small-cell cancer of the lung, as well as, multiple chemotherapies. WBC within normal limits and higher than baseline during previous hospital admission secondary to glucocorticoid use. -Continue to monitor blood counts daily. 9. Diabetes mellitus type 2, non-insulin using, present on admission. Presumed stable. -Last hemoglobin A1c 7.1%. -Continue metformin. -Continue low-dose correctional scale insulin and ACHS blood glucose checks. 10. CAD, present on admission. Presumed stable. -No active evidence of coronary disease. -Continue statin as below. 11. Hyperlipidemia, present on admission. Stable. -Continue atorvastatin 40 mg at bedtime. 12. Hypertension, present on admission. Stable. -Stopped Carvedilol 6.25 mg twice daily due to orthostatic hypotension. -Considering pill in a pocket technique for severe hypertension once home. 13. Depression, present on admission. Stable. -Held citalopram 10 mg daily as may provoke orthostatic hypotension. 14. BPH, present on admission. Presumed stable. -Stopped doxazosin 8 mg at bedtime due to orthostatic hypotension. 15. Rheumatoid arthritis, present on admission. Stable. -Discontinued methotrexate 10 mg weekly on Monday and folic acid 0.8 mg daily as patient reports he has not been taking this medication for several months. Methotrexate also has side effect of orthostatic hypotension. 16. Recent left arm thrombophlebitis status post PICC line removal and history of PE, present on admission. Presumed stable. -Held Xarelto 20 mg daily due to thrombocytopenia. 17. Glaucoma, chronic, present on admission. Stable. -Continue Timolol 1 dose left eye twice daily. Disposition: Likely to discharge home tomorrow depending upon echocardiogram results and continued control of orthostatic hypotension and hypertension.
[2018-04-25] MEDS: PANTOPRAZOLE 20 MG TABLET PO (07:06)
[2018-04-25 08:51] VITALS: BP 145/85; BP 175/95; BP 180/105; PULSE 103; PULSE 60; PULSE 75; PULSE 96; TEMP 36.4
[2018-04-25] MEDS: FOLIC ACID 0.4 MG TABLET 0.8 MG PO (09:11)
[2018-04-25] MEDS: METFORMIN HCL 500 MG TABLET PO ×2 (09:12→17:01)
[2018-04-25] MEDS: DOCUSATE 100 MG CAPSULE PO ×2 (09:12→20:50)
[2018-04-25] MEDS: CHOLECALCIFEROL (VITAMIN D3) 1,000 UNIT TABLET 2000 UNIT PO (09:12)
[2018-04-25] MEDS: CALCIUM CARBONATE 600 MG TABLET 1200 MG PO (09:12)
[2018-04-25] MEDS: predniSONE 20 MG TABLET 40 MG PO (09:12)
[2018-04-25] MEDS: SODIUM CHLORIDE 0.9% FLUSH 10 ML IV (09:12)
[2018-04-25] MEDS: MULTIVITAMIN 1 TABLET 1 TAB PO (09:12)
--- NOTE | 2018-04-25 11:17 | CM.DPC ---
DCP Cont: Per MD, pt making slow progress and still struggling with bp and continues to use his compression stockings. MD ordered Echo and may need another day or two before medically stable for d/c. Per PT, recommending safe d/c home with assist and HH. Pt already open with [facility] and agreeable to resuming services. Plan: SW to follow for likely pt d/c home with family assist and Resume [facility]. SW to fax [facility] Resume orders and d/c summ at discharge. MONIKA Moore
[2018-04-25 11:58] VITALS: BP 168/105; PULSE 96; RESP 18; TEMP 37; O2SAT 96
--- NOTE | 2018-04-25 12:16 | PT.IPTN ---
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 (04/17/18) Atherosclerotic heart disease of ione coronary artery without angina pectoris (04/17/18) Orthostatic hypotension (04/17/18) Pneumonia, unspecified organism (04/17/18) Rheumatoid arthritis, unspecified (04/17/18) Syncope and collapse (04/17/18) Hyperglycemia, unspecified (04/17/18) Physical Therapy Treatment Note M2 PT-IP Current Condition Start: 04/18/18 10:11 Freq: NEEDED Status: Active Protocol: Document 04/22/18 15:30 RCC (Rec: 04/22/18 16:36 RCC [id number]) Physical Therapy Current Condition Current Condition Evaluation Date 04/18/17 Treatment Diagnosis syncope, difficulty in walking , generalized muscle weakness Onset Date 04/17/17 Precautions Other Precautions Monitor BP M3 PT-IP Subjective Start: 04/18/18 10:11 Freq: NEEDED Status: Active Protocol: Document 04/25/18 12:05 SA (Rec: 04/25/18 12:16 SA [id number]) Subjective Physical Therapy Visit Type Type Treatment Note Visit Start Time 11:05 Visit Stop Time 11:25 Total Visit Minutes 20 Number of ELEMENTARY EDUCATOR Visits 1 Physical Therapy Visit Comments Patient Comments Pt ready for PT and walking, present for PT. Patient Goals go home LAUREN Therapy Pain Assessment Pain Present Pain Present Denied Pain M4 PT-IP Mobility and Gait Start: 04/18/18 10:11 Freq: NEEDED Status: Active Protocol: Document 04/25/18 12:05 SA (Rec: 04/25/18 12:16 SA [id number]) PT-Bed Mobility Assessment Rolling Type of Rolling Roll to Left Level of Assist Independent Supine to Sit Supine to Sit Independent Sit to Supine Sit to Supine Independent Scooting Scooting to Edge of Bed Independent Scooting Up and Down in Bed Independent PT-Transfer Assessment Sit to and From Stand Sit to and from Stand Standby Assistance Equipment Transfer Assistive Device Gait Belt 4 Wheeled Walker Transfers Transfer Destination Bed Chair Transfer Technique walked Transfer Ability Level of Assist Standby Assistance Comments Mobility Comments BP EOB 165/105. Pt eager to walk and impulsive . Gait Assessment Gait Gait Assistance Required: Contact Guard Assist Distance (Feet) 500 Assistive Devices Assistive Device Gait Belt 4 Wheeled Walker Gait Deviations General Gait Pattern Within Normal Limits Factors Limiting Gait Function Factors Limiting Gait Function Decreased Activity Tolerance Decreased Strength Poor Safety Awareness Comments Gait Comments WC follow with . Pt demonstrates good gait speed and no LOB, lets go of 4WW several times, able to turn head during gait with no LOB. Verbal cues and education for safety, pacing and PLB with gait and mobility tasks. Stair Climbing Assessment Evaluation Level of Assist On Stairs Standby Assistance Devices Stair Climbing Assistive Devices Left Railing Right Railing Technique/Endurance Stair Climbing Direction Ascend and Descend Stair Climbing Technique Step Over Step Stair Climbing Set # Repetitions (reps) 5 Comments Stair Climbing Comments No rest between sets of stairs , ceus for safety. PT-Balance Assessment Sitting Balance and Reactions Static Sitting Balance Ability Good Dynamic Sitting Balance Ability Good Standing Balance and Reactions Static Standing Balance Ability Good Dynamic Standing Balance Ability Fair Device Used 4WW M5 PT-IP Objective Assessments Start: 04/18/18 10:11 Freq: NEEDED Status: Active Protocol: Document 04/18/18 09:45 HH (Rec: 04/18/18 11:00 HH [id number]) Orientation Orientation/Cognition Level of Alertness Alert Orientation Name Age Birthday Month Date Year Day of Week Place Situation Language Function Ability No Deficits Noted Safety Awareness Understands Safety Issues Memory Description No Deficits Noted Gross Range of Motion Upper Extremity ROM Assessment Within Functional Limits Lower Extremity ROM Assessment Within Functional Limits Strength Upper Extremity Strength Assessment Within Functional Limits Lower Extremity Strength Assessment Within Functional Limits Coordination Assessment Gross Coordination Gross Coordination WNL Sensation Assessment Sensation Gross Sensation WNL M6 PT-IP Treatment Start: 04/18/18 10:11 Freq: NEEDED Status: Active Protocol: Document 04/25/18 12:05 SA (Rec: 04/25/18 12:16 SA [id number]) Physical Therapy Treatment Exercises Exercises Ankle Pumps Education Education Provided Safety M7 PT-IP Assessment and Plan Start: 04/18/18 10:11 Freq: NEEDED Status: Active Protocol: Document 04/25/18 12:05 SA (Rec: 04/25/18 12:16 SA [id number]) PT Summary Assessment and Plan Summary Impairments Strength Balance Gait Activity Tolerance Progress Towards Goals Progressing Toward Goals Assessment Summary Pt had abdominal binder on prior to session. BPs remain high but more stable. Pt impulsive and moves quickly needs safety cues. is primary caregiver and responsive to education. Frequency of Treatment Frequency Of Treatment Once a Day Recommendations To Nursing Amount of Assist Needed 1 Person Assist Discharge Recommendations PT Discharge Recommendations Home with Assistance Home Health Equipment Needed for Home Before 4WW Discharge
--- NOTE | 2018-04-25 12:24 | PC.NURSE ---
Patient denies complaints this morning. Orthostatic vital signs reviewed with MD. Patient denies lightheadedness, dizziness or other complaint while standing and mobilizing. Tolerated ambulation in halls with P.T. Currently getting ECHO done. Continue to monitor. Patient is very eager to go home.
[2018-04-25] MEDS: INSULIN ASPART 100 UNIT/ML INSULN PEN SUBCUT ×2 (13:02→17:02)
--- NOTE | 2018-04-25 13:39 | PC.NURSE ---
Per Lali RN in wound clinic she and Dr. Godinez will be checking patient's wounds today and providing dressing change at some point this afternoon. Current dressings remain in place at this time.
[2018-04-25 16:00] VITALS: BP 138/98; BP 148/88; BP 148/90; RESP 19; TEMP 36.7
[2018-04-25] MEDS: ATORVASTATIN 20 MG TABLET 40 MG PO (20:50)
--- NOTE | 2018-04-25 20:52 | PC.NURSE ---
Addendum entered by Kinza Hardy R.N. 04/25/18 21:17: No IV access, Dr. jeff and OK. Original Note: 1700- Dr. Godinez and Lali RN in to clean and change drsgs to wounds; left hip/flank and left upper arm. Pt up to chair for this and then back to bed. Pt fully alert and oriented, 96%RA, LS clear, Bt+, no nausea, 1PA FWW to BRP to void clear yellow urine. Orthostatic BP taken and recorded, NSR, no dizziness or lightheadedness. CBG- 214-2units insulin, and 151-no coverage needed. rooming in, bed alarm on for safety.
[2018-04-25 23:43] VITALS: BP 186/92; PULSE 64; RESP 18; TEMP 36.9; O2SAT 99
[2018-04-26 03:00] VITALS: BP 106/72; BP 136/72; BP 186/90; PULSE 88; PULSE 90; PULSE 92; RESP 18; TEMP 36.9
[2018-04-26 03:22] VITALS: O2SAT 99
[2018-04-26] MEDS: PANTOPRAZOLE 20 MG TABLET PO (05:56)
[2018-04-26 07:45] VITALS: O2SAT 96
[2018-04-26 08:11] VITALS: BP 162/87; PULSE 65; RESP 20; TEMP 36.5; O2SAT 96
[2018-04-26] MEDS: CHOLECALCIFEROL (VITAMIN D3) 1,000 UNIT TABLET 2000 UNIT PO (09:06)
[2018-04-26] MEDS: CALCIUM CARBONATE 600 MG TABLET 1200 MG PO (09:06)
[2018-04-26] MEDS: METFORMIN HCL 500 MG TABLET PO (09:06)
[2018-04-26] MEDS: DOCUSATE 100 MG CAPSULE PO (09:07)
[2018-04-26] MEDS: MULTIVITAMIN 1 TABLET 1 TAB PO (09:07)
[2018-04-26 09:08] LABS: Add Manual Diff / Slide Review NO; Basophils Absolute Auto 0 /uL (0-100); Basophils Percent Auto 0.3 % (0-2); Eosinophils Absolute Auto 100 /uL (0-450); Eosinophils Percent Auto 1.1 % (2-4); Hematocrit 39.8 % (41-53); Hemoglobin 13.3 g/dL (13.5-17.5); Lymphocytes Absolute Auto 2000 /uL (1100-4500); Lymphocytes Percent Auto 27.7 % (25-40); Mean Corpuscular HGB Conc 33.4 % (30-36); Mean Corpuscular Hemoglobin 33.1 PG (26-34); Mean Corpuscular Volume 99.1 fL (80-100); Monocytes Absolute Auto 400 /uL (0-900); Monocytes Percent Auto 5.3 % (3-14); Neutrophils Absolute Auto 4700 /uL (1500-7000); Neutrophils Percent Auto 65.6 % (50-75); Platelet Count 44 X10^3/uL (150-400); Red Blood Cell Count 4.02 X10^6/uL (4.5-5.9); Red Cell Distribution Width 15.6 % (11.6-14.8); White Blood Cell Count 7.2 X10^3/uL (4.5-11.0)
[2018-04-26] MEDS: predniSONE 20 MG TABLET 40 MG PO (09:13)
[2018-04-26 09:18] LABS: BUN Creatinine Ratio 26.7 (6-22); Blood Urea Nitrogen 24 mg/dL (9-20); Calcium 8.6 mg/dL (8.4-10.2); Carbon Dioxide 30 mmol/L (22-32); Chloride 104 mmol/L (98-107); Estimated Glomerular Filt Rate > 60.0 mL/min (>60); Glucose 100 mg/dL (80-110); HEMOLYSIS < 15 (0-50); Magnesium 1.9 mg/dL (1.6-2.3); Potassium 3.5 mmol/L (3.4-5.1); Sodium 139 mmol/L (137-145)
--- NOTE | 2018-04-26 09:26 | PM.DS.1 ---
History of Present Illness Date Patient Seen: 04/17/18 Chief complaint: Left hip and upper arm wounds. Narrative: Written by Dr. 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 Patient also has a history of metastatic prostate cancer. He completed 4 rounds of chemotherapy with carboplatin and etoposide. He has a history of rheumatoid arthritis on methotrexate and depression. Patient was hospitalized in March of this year. He was discharged at that time with left lower lobe pneumonia. He had generalized weakness. Since discharge the patient has followed up with his oncologist. There was concern that he had adrenal insufficiency as a complication of 1 of his medications specifically the Zytiga. Patient was placed on high-dose steroids to include prednisone 100 mg per day. According to his significant other he has had multiple episodes of weakness, shakiness, and confusion. He has shaking of the upper extremities however there has been no observed tonic-clonic activity, incontinence, foaming at the mouth. The patient is somewhat confused during the episodes. They last about 45 sec and then resolved. The episodes were occurring infrequently starting in February. However today the patient had 5 episodes where he had confusion shaking and overall weakness. Patient was evaluated in the emergency department and had a head CT which was unremarkable. A chest x-ray confirmed bibasilar infiltrates which is new since his prior x-ray in March. The patient denies any fever chills or cough. He has no shortness of breath. He denies any nausea vomiting or diarrhea. He has no significant joint pains or rashes. Patient has alopecia from his prior chemotherapy. Discharge Providers Date of admission: 04/17/18 14:22 Primary care physician: Gurdeep Cameron MD Consults: 04/17/18 16:32 Consult to Occupational Therapy Evaluate & Treat Comment: Physician Instructions: Evaluate and treat Consult to Physical Therapy Evaluate & Treat Comment: Physician Instructions: Evaluate and Treat 04/17/18 16:38 Consult to Dietitian, Adult Routine Comment: Reason For Exam: assessed at high risk Consult to Adult Remedial Education Instructor Routine Comment: 04/17/18 17:37 Consult to Wound Care Routine Comment: Consulting Provider: [facility] 04/22/18 10:44 Consult to Physical Therapy Evaluate & Treat Comment: Physician Instructions: Evaluate and Treat 04/22/18 10:45 Consult to Occupational Therapy Evaluate & Treat Comment: Physician Instructions: Evaluate and treat Discharge provider: Christel Altamirano DO Discharge Date: 04/26/18 Summary Discharge Diagnosis: 1. Acute orthostatic hypotension, present on admission. Stable. 2. Acute adrenal insufficiency, present on admission. Stable. 3. Acute syncope secondary to orthostasis, present on admission. Resolved. 4. Chronic wounds on left flank status post cyst removal, present on admission. Slowly improving. 5. Recent left lower lobe community-acquired pneumonia. Resolved. 6. 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 Presumed stable. 7. 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 Presumed stable. 8. Pancytopenia, chronic, present on admission. Stable. 9. Diabetes mellitus type 2, non-insulin using, present on admission. Presumed stable. 10. CAD, present on admission. Presumed stable. 11. Hyperlipidemia, present on admission. Stable. 12. Hypertension, present on admission. Stable. 13. Depression, present on admission. Stable. 14. BPH, present on admission. Presumed stable. 15. Rheumatoid arthritis, present on admission. Stable. 16. Recent left arm thrombophlebitis status post PICC line removal and history of PE, present on admission. Presumed stable. 17. Glaucoma, chronic, present on admission. Stable. 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 1. Acute orthostatic hypotension, present on admission. Stable. -Have trialed Florinef x 2 and midodrine with significant supine hypertension and minimal benefit in orthostatic hypotension. -Compression stockings and abdominal binder were placed and instructed to wear 3/4 of the day. The patient was discharged home with instructions regarding physical exercises to help combat orthostatic hypotension. -Considering paraneoplastic syndrome such as [place] Myasthenia Sydrome (LEMS) or Myasthenia Gravis associated with SCLC and his autonomic dysreflexia. Acetylcholinesterase antibody has been ordered. Discussed paraneoplastic syndrome with his oncologist, Dr. Ortiz, who recommended ordering paraneoplastic panel which has been ordered and is pending with Dr. Ortiz to follow. However, Dr. Ortiz is uncertain that this is related to his SCLC as this is usually present prior to initiation of chemotherapy or in highly active and not contained SCLC. We are also not able to do an EMG in this facility. There were no physical exam findings of rapid fatigue or sluggish pupils today. -Urine metanephrines pending as pheochromocytoma is rarely associated with hypertension and hypotension. -Continued manual blood pressures ONLY. Blood pressures tend to fluctuate quite readily but improving overall. Patient is feeling stronger daily and asymptomatic of orthostasis. -Ordered echocardiogram to rule out CHF as component of orthostasis. Echocardiogram demonstrated preserved ejection fraction with basal inferior wall hypokinesis with recommendation for limited echocardiogram with contrast to delineate finding. Recommended following up with his medical billing and coding instructor Dr. Quan. 2. Acute adrenal insufficiency, present on admission. Stable. -Patient has adrenal insufficiency which is a known side effect of Zytiga. The Zytiga has been discontinued and he has been tapered down on prednisone now on 40 mg daily. -Repeat AM cortisol level low and may need to increase steroid dose and will defer to his oncologist Dr. Ortiz. 3. Acute syncope secondary to orthostasis, present on admission. Resolved. -Treated orthostatic hypotension as above. 4. Chronic wounds on left flank status post cyst removal, present on admission. Slowly improving. -Previous wound culture grew Staphylococcus lugundensis which according to Infectious Disease, Dr. Cuevas, is 100% mortality rate if it were to enter the blood stream. Completed several courses of antibiotics which cover this bacteria. -Blood culture x2 has no growth to date. -Wound culture has no growth. Follow-up with wound care outpatient. -Continue wound care. Will need wound care outpatient. 5. Recent left lower lobe community-acquired pneumonia. Resolved. -Completed a full course of antibiotics with cefepime and Levaquin. Previously completed course of ceftriaxone and Augmentin. 6. 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 Presumed stable. -Status post radiation to left lung and brain prophylactically and 4 rounds of chemotherapy with carboplatin and etoposide. SCLC stable without evidence of advancement on recent CT chest. 7. 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 Presumed stable. -He has metastatic prostate cancer with a high [place] score. His PSA is undetectable. He will be due for Lupron injection in April. Discontinued Zytiga 1 g daily outpatient per oncology. 8. Pancytopenia, chronic, present on admission. Stable. -Likely multifactorial and related to metastatic prostate cancer and small-cell cancer of the lung, as well as, multiple chemotherapies. WBC within normal limits and higher than baseline during previous hospital admission secondary to glucocorticoid use. -Continue to monitor blood counts daily. 9. Diabetes mellitus type 2, non-insulin using, present on admission. Presumed stable. -Last hemoglobin A1c 7.1%. -Continue metformin. -Continue low-dose correctional scale insulin and ACHS blood glucose checks. 10. CAD, present on admission. Presumed stable. -No active evidence of coronary disease. -Continue statin as below. 11. Hyperlipidemia, present on admission. Stable. -Continue atorvastatin 40 mg at bedtime. 12. Hypertension, present on admission. Stable. -Discontinued Carvedilol 6.25 mg twice daily due to orthostatic hypotension. -Patient discharged with metoprolol tartrate 25 mg every 6 hours as needed for SBP > 180 mmHg sustained for 30 min. 13. Depression, present on admission. Stable. -Discontinued citalopram 10 mg daily as may provoke orthostatic hypotension. 14. BPH, present on admission. Presumed stable. -Discontinued doxazosin 8 mg at bedtime due to orthostatic hypotension. 15. Rheumatoid arthritis, present on admission. Stable. -Discontinued methotrexate 10 mg weekly on Monday and folic acid 0.8 mg daily as patient reports he has not been taking this medication for several months. Methotrexate also has side effect of orthostatic hypotension. 16. Recent left arm thrombophlebitis status post PICC line removal and history of PE, present on admission. Presumed stable. -Held Xarelto 20 mg daily due to thrombocytopenia. Repeat CBC in 1 week with PCP. 17. Glaucoma, chronic, present on admission. Stable. -Continued Timolol 1 dose left eye twice daily. Status at Discharge Functional status at discharge: uses cane/walker Overall status at discharge: patient is back to baseline Exam Vital Signs (past 8 hours): - 04/26/18 03:00 04/26/18 03:22 04/26/18 08:11 Temperature 98.4 F 97.7 F Pulse Rate 90 65 Pulse Rate [Orthostatic Lying] 92 H Pulse Rate [Orthostatic Sitting] 90 Pulse Rate [Orthostatic Standing] 88 Respiratory Rate 18 20 Blood Pressure 136/72 162/87 H Blood Pressure [Orthostatic Lying] 186/90 H Blood Pressure [Orthostatic Sitting] 136/72 Blood Pressure [Orthostatic Standing] 106/72 Pulse Oximetry 99 96 Fraction of Inspired Oxygen 21 Oxygen Delivery Method Room Air Oxygen Flow Rate 0 Narrative Exam Narrative: General: Elderly gentleman sitting in bed and in no acute distress, appears chronically ill, appropriately interactive. HEENT: Normocephalic, atraumatic. External ears without defect. Pupils equal, round, and reactive to light. Anicteric sclerae, moist conjunctivae, and no lid lag. Neck: Supple with full range of motion. No lymphadenopathy or thyromegaly. Cardiovascular: Regular rate and rhythm without murmurs, rubs, or gallops appreciated. Pulmonary: Clear to auscultation bilaterally with scattered rhonchi. No wheeze or crackles. Normal respiratory effort with no use of accessory muscles. Abdomen: Soft, bowel sounds present, non-tender, nondistended. No hepatosplenomegaly or masses appreciated. Extremities: No clubbing, cyanosis, or edema. Skin: Normal temperature, turgor, and texture; no rash, ulcers, or subcutaneous nodules appreciated. Two 2cm chronic wounds on left flank status post debridement with mild erythema surrounding. Left upper extremity wound with bandage in place C/D/I. Neurological: Cranial nerves grossly intact. Psychiatric: Normal mood and affect. Alert and oriented to person, place, and time. Objective Labs Result Diagrams: 04/26/18 08:29 04/26/18 08:29 Labs: Laboratory Results - last 24 hr 04/23/18 04/26/18 04/26/18 Unknown 08:29 08:29 WBC 7.2 RBC 4.02 L Hgb 13.3 L Hct 39.8 L MCV 99.1 MCH 33.1 MCHC 33.4 RDW 15.6 H Plt Count 44 L Neut % (Auto) 65.6 Lymph % (Auto) 27.7 [place] % (Auto) 5.3 Eos % (Auto) 1.1 L Baso % (Auto) 0.3 Neut # (Auto) 4700 Lymph # (Auto) 2000 [place] # (Auto) 400 Eos # (Auto) 100 Baso # (Auto) 0 Sodium 139 Potassium 3.5 Chloride 104 Carbon Dioxide 30 BUN 24 H Creatinine 0.90 Estimated GFR > 60.0 BUN/Creatinine Ratio 26.7 H Glucose 100 Calcium 8.6 Magnesium 1.9 Ref Test (Refrig) Cancelled Discharge Plan Discharge Plan Patient Disposition: Home Discharge comment: You are being discharged home. Please follow up with your PCP, Dr. Cameron, in the next 1 week with CBC and decision made whether to restart Xarelto based on platelets. Please follow up with wound care, Dr. Wiseman, in the next 1 week for continued management of chronic wound. Please follow up with your oncologist, Dr. Ortiz, regarding your prostate cancer and small-cell lung cancer, as well as, your blood work that is pending. Please follow up with your medical billing and coding instructor, Dr. Quan, regarding a repeat echocardiogram with contrast to further look at the motion of your heart. Discharge Med Rec/Prescriptions Prescriptions: New metoprolol tartrate 25 mg tablet 25 mg PO Q6H PRN (Reason: hypertension) Qty: 30 RF: 0 Continue atorvastatin [Lipitor] 40 MG tablet 40 mg PO BEDTIME Qty: 0 RF: 0 magnesium 200 MG tablet 200 mg PO Q DAY Qty: 0 RF: 0 cholecalciferol (vitamin D3) [Vitamin D3] 2,000 UNIT capsule 2,000 iu PO QDAY Qty: 0 RF: 0 multivitamin [Multiple Vitamins] 1 EACH tablet 1 tab PO QDAY Qty: 0 RF: 0 calcium carbonate 600 MG tablet 1,200 mg PO Q DAY Qty: 0 RF: 0 ascorbic acid (vitamin C) 500 MG tablet 1,500 mg PO DAILY Qty: 0 RF: 0 metformin 500 mg Tablet 500 mg PO BID RF: 0 rivaroxaban [Xarelto] 20 mg Tablet 20 mg PO DAILY Qty: 90 RF: 0 hydrocortisone 20 mg Tablet 40 mg PO BID RF: 0 nitroglycerin [Nitrostat] 0.4 mg Tablet, Sublingual 0.4 mg Sublingual [id number] PRN (Reason: Chest Pain) Qty: 30 RF: 0 timolol 0.5 % Drops 1 dose EYE-LEFT BID RF: 0 mupirocin calcium [Bactroban] 2 % Cream 1 applic TOPICAL BEDTIME RF: 0 prednisone 20 mg tablet 40 mg PO BID RF: 0 omeprazole 20 mg Capsule,Delayed Release(Dr/Ec) 20 mg PO DAILY RF: 0 Probiotic 1 cap PO BID RF: 0 Discontinued methotrexate sodium 2.5 mg Tablet 10 mg PO QWEEK RF: 0 citalopram 10 mg tablet 10 mg PO BEDTIME RF: 0 doxazosin 8 mg tablet 8 mg PO BEDTIME RF: 0 folic acid 400 mcg Tablet 0.8 mg PO DAILY RF: 0 carvedilol 6.25 mg tablet 6.25 mg PO BID RF: 0 Follow up/Referrals: Gurdeep Cameron MD [Primary Care Provider] - 04/30/18 3:45 pm (*appt:05/02 @ 3:45 w/dr cameron [facility] [phone]) Alfie Wiseman MD [Physician] - 05/01/18 1:45 pm (*appt: 05/01 @ 1:45 W/DR WISEMAN @ [facility] [phone]) Provider Discharge Instructions Diet: Diet as Tolerated Activity: Activity as tolerated with a forward wheeled walker. Please use the exercises as instructed before standing up. Once you stand up stand for several minutes prior to ambulating. Skin/Wound/Dressing Care Report to your healthcare provider any signs of infection, such as:: chills, fever, increased pain, unusual drainage and unusual redness Other wound treatment: Continue dressing wound as instructed. Visit Report/Discharge Packet Instructions: DI for Orthostatic Hypotension, DI for Pneumonia -- Adult, Metoprolol Visit Report Forms: Stroke Signs & Symptoms Discharge Data Primary Care Provider: Gurdeep Cameron V Attending Provider: Aisha Helms Admit Date/Time: 04/17/18 14:22 Discharges patient from system. Discharge Date/Time: 04/26/18 11:00
--- NOTE | 2018-04-26 10:16 | PT.IPTN ---
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 (04/17/18) Atherosclerotic heart disease of [place] coronary artery without angina pectoris (04/17/18) Orthostatic hypotension (04/17/18) Pneumonia, unspecified organism (04/17/18) Rheumatoid arthritis, unspecified (04/17/18) Syncope and collapse (04/17/18) Hyperglycemia, unspecified (04/17/18) Physical Therapy Treatment Note M2 PT-IP Current Condition Start: 04/18/18 10:11 Freq: NEEDED Status: Active Protocol: Document 04/22/18 15:30 RCC (Rec: 04/22/18 16:36 RCC [id number]) Physical Therapy Current Condition Current Condition Evaluation Date 04/18/17 Treatment Diagnosis syncope, difficulty in walking , generalized muscle weakness Onset Date 04/17/17 Precautions Other Precautions Monitor BP M3 PT-IP Subjective Start: 04/18/18 10:11 Freq: NEEDED Status: Active Protocol: Document 04/26/18 10:00 HH (Rec: 04/26/18 10:16 HH [id number]) Subjective Physical Therapy Visit Type Type Patient Refusal Visit Start Time 10:00 Notes Pt and his requested not to do PT since they are going to be d/c to home in an hour. PT and CG education on BP monitoring and cont overall strengthening and cardiac fitness with HH. M4 PT-IP Mobility and Gait Start: 04/18/18 10:11 Freq: NEEDED Status: Active Protocol: Document 04/25/18 12:05 SA (Rec: 04/25/18 12:16 SA [id number]) PT-Bed Mobility Assessment Rolling Type of Rolling Roll to Left Level of Assist Independent Supine to Sit Supine to Sit Independent Sit to Supine Sit to Supine Independent Scooting Scooting to Edge of Bed Independent Scooting Up and Down in Bed Independent PT-Transfer Assessment Sit to and From Stand Sit to and from Stand Standby Assistance Equipment Transfer Assistive Device Gait Belt 4 Wheeled Walker Transfers Transfer Destination Bed Chair Transfer Technique walked Transfer Ability Level of Assist Standby Assistance Comments Mobility Comments BP EOB 165/105. Pt eager to walk and impulsive . Gait Assessment Gait Gait Assistance Required: Contact Guard Assist Distance (Feet) 500 Assistive Devices Assistive Device Gait Belt 4 Wheeled Walker Gait Deviations General Gait Pattern Within Normal Limits Factors Limiting Gait Function Factors Limiting Gait Function Decreased Activity Tolerance Decreased Strength Poor Safety Awareness Comments Gait Comments WC follow with . Pt demonstrates good gait speed and no LOB, lets go of 4WW several times, able to turn head during gait with no LOB. Verbal cues and education for safety, pacing and PLB with gait and mobility tasks. Stair Climbing Assessment Evaluation Level of Assist On Stairs Standby Assistance Devices Stair Climbing Assistive Devices Left Railing Right Railing Technique/Endurance Stair Climbing Direction Ascend and Descend Stair Climbing Technique Step Over Step Stair Climbing Set # Repetitions (reps) 5 Comments Stair Climbing Comments No rest between sets of stairs , ceus for safety. PT-Balance Assessment Sitting Balance and Reactions Static Sitting Balance Ability Good Dynamic Sitting Balance Ability Good Standing Balance and Reactions Static Standing Balance Ability Good Dynamic Standing Balance Ability Fair Device Used 4WW M5 PT-IP Objective Assessments Start: 04/18/18 10:11 Freq: NEEDED Status: Active Protocol: Document 04/18/18 09:45 HH (Rec: 04/18/18 11:00 HH [id number]) Orientation Orientation/Cognition Level of Alertness Alert Orientation Name Age Birthday Month Date Year Day of Week Place Situation Language Function Ability No Deficits Noted Safety Awareness Understands Safety Issues Memory Description No Deficits Noted Gross Range of Motion Upper Extremity ROM Assessment Within Functional Limits Lower Extremity ROM Assessment Within Functional Limits Strength Upper Extremity Strength Assessment Within Functional Limits Lower Extremity Strength Assessment Within Functional Limits Coordination Assessment Gross Coordination Gross Coordination WNL Sensation Assessment Sensation Gross Sensation WNL M6 PT-IP Treatment Start: 04/18/18 10:11 Freq: NEEDED Status: Active Protocol: Document 04/25/18 12:05 SA (Rec: 04/25/18 12:16 SA [id number]) Physical Therapy Treatment Exercises Exercises Ankle Pumps Education Education Provided Safety M7 PT-IP Assessment and Plan Start: 04/18/18 10:11 Freq: NEEDED Status: Active Protocol: Document 04/25/18 12:05 SA (Rec: 04/25/18 12:16 SA [id number]) PT Summary Assessment and Plan Summary Impairments Strength Balance Gait Activity Tolerance Progress Towards Goals Progressing Toward Goals Assessment Summary Pt had abdominal binder on prior to session. BPs reamin high but more stable. Pt impulsive and moves quickly needs safety cues. is primary caregiver and responsive to education. Frequency of Treatment Frequency Of Treatment Once a Day Recommendations To Nursing Amount of Assist Needed 1 Person Assist Discharge Recommendations PT Discharge Recommendations Home with Assistance Home Health Equipment Needed for Home Before 4WW Discharge
--- NOTE | 2018-04-26 11:01 | PC.NURSE ---
Discharge instructions and home care handouts reviewed with patient and his . Patient and have no further questions or concerns at this time. will call to ensure follow up appointments with all 4 md's recommended. Escorted out via wheelchair to be discharged to home with .
--- NOTE | 2018-04-26 12:15 | CM.DPC ---
Addendum entered by MONIKA Ann 04/26/18 16:58: Faxed D/C summary and orders to [facility]. Original Note: DCP/Discharge Patient to discharge home with [facility]. Patient agreeable to discharge and has no concerns. Called [facility] to notify if discharge. CM to fax DC sumamry and orders when available. Plan: Patient to discharge home today via pov with resumption orders for [facility].
--- NOTE | 2018-04-26 12:40 | P.DS_ITS ---
History of Present Illness Date Patient Seen: 04/17/18 Chief complaint: Left hip and upper arm wounds. Narrative: Written by Dr. 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 Patient also has a history of metastatic prostate cancer. He completed 4 rounds of chemotherapy with carboplatin and etoposide. He has a history of rheumatoid arthritis on methotrexate and depression. Patient was hospitalized in March of this year. He was discharged at that time with left lower lobe pneumonia. He had generalized weakness. Since discharge the patient has followed up with his oncologist. There was concern that he had adrenal insufficiency as a complication of 1 of his medications specifically the Zytiga. Patient was placed on high-dose steroids to include prednisone 100 mg per day. According to his significant other he has had multiple episodes of weakness, shakiness, and confusion. He has shaking of the upper extremities however there has been no observed tonic-clonic activity, incontinence, foaming at the mouth. The patient is somewhat confused during the episodes. They last about 45 sec and then resolved. The episodes were occurring infrequently starting in February. However today the patient had 5 episodes where he had confusion shaking and overall weakness. Patient was evaluated in the emergency department and had a head CT which was unremarkable. A chest x-ray confirmed bibasilar infiltrates which is new since his prior x-ray in March. The patient denies any fever chills or cough. He has no shortness of breath. He denies any nausea vomiting or diarrhea. He has no significant joint pains or rashes. Patient has alopecia from his prior chemotherapy. Discharge Providers Date of admission: 04/17/18 14:22 Primary care physician: Gurdeep Cameron MD Consults: 04/17/18 16:32 Consult to Occupational Therapy Evaluate & Treat Comment: Physician Instructions: Evaluate and treat Consult to Physical Therapy Evaluate & Treat Comment: Physician Instructions: Evaluate and Treat 04/17/18 16:38 Consult to Dietitian, Adult Routine Comment: Reason For Exam: assessed at high risk Consult to Iron Assorter Routine Comment: 04/17/18 17:37 Consult to Wound Care Routine Comment: Consulting Provider: [facility] 04/22/18 10:44 Consult to Physical Therapy Evaluate & Treat Comment: Physician Instructions: Evaluate and Treat 04/22/18 10:45 Consult to Occupational Therapy Evaluate & Treat Comment: Physician Instructions: Evaluate and treat Discharge provider: Christel Altamirano DO Discharge Date: 04/26/18 Summary Discharge Diagnosis: 1. Acute orthostatic hypotension, present on admission. Stable. 2. Acute adrenal insufficiency, present on admission. Stable. 3. Acute syncope secondary to orthostasis, present on admission. Resolved. 4. Chronic wounds on left flank status post cyst removal, present on admission. Slowly improving. 5. Recent left lower lobe community-acquired pneumonia. Resolved. 6. 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 Presumed stable. 7. 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 Presumed stable. 8. Pancytopenia, chronic, present on admission. Stable. 9. Diabetes mellitus type 2, non-insulin using, present on admission. Presumed stable. 10. CAD, present on admission. Presumed stable. 11. Hyperlipidemia, present on admission. Stable. 12. Hypertension, present on admission. Stable. 13. Depression, present on admission. Stable. 14. BPH, present on admission. Presumed stable. 15. Rheumatoid arthritis, present on admission. Stable. 16. Recent left arm thrombophlebitis status post PICC line removal and history of PE, present on admission. Presumed stable. 17. Glaucoma, chronic, present on admission. Stable. 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 1. Acute orthostatic hypotension, present on admission. Stable. -Have trialed Florinef x 2 and midodrine with significant supine hypertension and minimal benefit in orthostatic hypotension. -Compression stockings and abdominal binder were placed and instructed to wear 3 /4 of the day. The patient was discharged home with instructions regarding physical exercises to help combat orthostatic hypotension. 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 Acetylcholinesterase antibody has been ordered. Discussed paraneoplastic syndrome with his oncologist, Dr. Ortiz, who recommended ordering paraneoplastic panel which has been ordered and is pending with Dr. Ortiz to follow. However, Dr. Ortiz is uncertain that this is related to his SCLC as this is usually present prior to initiation of chemotherapy or in highly active and not contained SCLC. We are also not able to do an EMG in this facility. There were no physical exam findings of rapid fatigue or sluggish pupils today. -Urine metanephrines pending as pheochromocytoma is rarely associated with hypertension and hypotension. -Continued manual blood pressures ONLY. Blood pressures tend to fluctuate quite readily but improving overall. Patient is feeling stronger daily and asymptomatic of orthostasis. -Ordered echocardiogram to rule out CHF as component of orthostasis. Echocardiogram demonstrated preserved ejection fraction with basal inferior wall hypokinesis with recommendation for limited echocardiogram with contrast to delineate finding. Recommended following up with his oil prospecting observer Dr. Quan. 2. Acute adrenal insufficiency, present on admission. Stable. -Patient has adrenal insufficiency which is a known side effect of Zytiga. The Zytiga has been discontinued and he has been tapered down on prednisone now on 40 mg daily. -Repeat AM cortisol level low and may need to increase steroid dose and will defer to his oncologist Dr. Ortiz. 3. Acute syncope secondary to orthostasis, present on admission. Resolved. -Treated orthostatic hypotension as above. 4. Chronic wounds on left flank status post cyst removal, present on admission. Slowly improving. -Previous wound culture grew Staphylococcus lugundensis which according to Infectious Disease, Dr. Cuevas, is 100% mortality rate if it were to enter the blood stream. Completed several courses of antibiotics which cover this bacteria. -Blood culture x2 has no growth to date. -Wound culture has no growth. Follow-up with wound care outpatient. -Continue wound care. Will need wound care outpatient. 5. Recent left lower lobe community-acquired pneumonia. Resolved. -Completed a full course of antibiotics with cefepime and Levaquin. Previously completed course of ceftriaxone and Augmentin. 6. 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 Presumed stable. -Status post radiation to left lung and brain prophylactically and 4 rounds of chemotherapy with carboplatin and etoposide. SCLC stable without evidence of advancement on recent CT chest. 7. 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 Presumed stable. -He has metastatic prostate cancer with a high Casselberry score. His PSA is undetectable. He will be due for Lupron injection in April. Discontinued Zytiga 1 g daily outpatient per oncology. 8. Pancytopenia, chronic, present on admission. Stable. -Likely multifactorial and related to metastatic prostate cancer and small-cell cancer of the lung, as well as, multiple chemotherapies. WBC within normal limits and higher than baseline during previous hospital admission secondary to glucocorticoid use. -Continue to monitor blood counts daily. 9. Diabetes mellitus type 2, non-insulin using, present on admission. Presumed stable. -Last hemoglobin A1c 7.1%. -Continue metformin. -Continue low-dose correctional scale insulin and ACHS blood glucose checks. 10. CAD, present on admission. Presumed stable. -No active evidence of coronary disease. -Continue statin as below. 11. Hyperlipidemia, present on admission. Stable. -Continue atorvastatin 40 mg at bedtime. 12. Hypertension, present on admission. Stable. -Discontinued Carvedilol 6.25 mg twice daily due to orthostatic hypotension. -Patient discharged with metoprolol tartrate 25 mg every 6 hours as needed for SBP > 180 mmHg sustained for 30 min. 13. Depression, present on admission. Stable. -Discontinued citalopram 10 mg daily as may provoke orthostatic hypotension. 14. BPH, present on admission. Presumed stable. -Discontinued doxazosin 8 mg at bedtime due to orthostatic hypotension. 15. Rheumatoid arthritis, present on admission. Stable. -Discontinued methotrexate 10 mg weekly on Monday and folic acid 0.8 mg daily as patient reports he has not been taking this medication for several months. Methotrexate also has side effect of orthostatic hypotension. 16. Recent left arm thrombophlebitis status post PICC line removal and history of PE, present on admission. Presumed stable. -Held Xarelto 20 mg daily due to thrombocytopenia. Repeat CBC in 1 week with PCP. 17. Glaucoma, chronic, present on admission. Stable. -Continued Timolol 1 dose left eye twice daily. Status at Discharge Functional status at discharge: uses cane/walker Overall status at discharge: patient is back to baseline Exam Vital Signs (past 8 hours): - 04/26/18 03:00 04/26/18 03:22 04/26/18 08:11 Temperature 98.4 F 97.7 F Pulse Rate 90 65 Pulse Rate [Orthostatic Lying] 92 H Pulse Rate [Orthostatic Sitting] 90 Pulse Rate [Orthostatic Standing] 88 Respiratory Rate 18 20 Blood Pressure 136/72 162/87 H Blood Pressure [Orthostatic Lying] 186/90 H Blood Pressure [Orthostatic Sitting] 136/72 Blood Pressure [Orthostatic Standing] 106/72 Pulse Oximetry 99 96 Fraction of Inspired Oxygen 21 Oxygen Delivery Method Room Air Oxygen Flow Rate 0 Narrative Exam Narrative: General: Elderly gentleman sitting in bed and in no acute distress, appears chronically ill, appropriately interactive. HEENT: Normocephalic, atraumatic. External ears without defect. Pupils equal, round, and reactive to light. Anicteric sclerae, moist conjunctivae, and no lid lag. Neck: Supple with full range of motion. No lymphadenopathy or thyromegaly. Cardiovascular: Regular rate and rhythm without murmurs, rubs, or gallops appreciated. Pulmonary: Clear to auscultation bilaterally with scattered rhonchi. No wheeze or crackles. Normal respiratory effort with no use of accessory muscles. Abdomen: Soft, bowel sounds present, non-tender, nondistended. No hepatosplenomegaly or masses appreciated. Extremities: No clubbing, cyanosis, or edema. Skin: Normal temperature, turgor, and texture; no rash, ulcers, or subcutaneous nodules appreciated. Two 2cm chronic wounds on left flank status post debridement with mild erythema surrounding. Left upper extremity wound with bandage in place C/D/I. Neurological: Cranial nerves grossly intact. Psychiatric: Normal mood and affect. Alert and oriented to person, place, and time. Objective Labs Result Diagrams: 04/26/18 08:29 04/26/18 08:29 Labs: Laboratory Results - last 24 hr 04/23/18 04/26/18 04/26/18 Unknown 08:29 08:29 WBC 7.2 RBC 4.02 L Hgb 13.3 L Hct 39.8 L MCV 99.1 MCH 33.1 MCHC 33.4 RDW 15.6 H Plt Count 44 L Neut % (Auto) 65.6 Lymph % (Auto) 27.7 [place] % (Auto) 5.3 Eos % (Auto) 1.1 L Baso % (Auto) 0.3 Neut # (Auto) 4700 Lymph # (Auto) 2000 [place] # (Auto) 400 Eos # (Auto) 100 Baso # (Auto) 0 Sodium 139 Potassium 3.5 Chloride 104 Carbon Dioxide 30 BUN 24 H Creatinine 0.90 Estimated GFR > 60.0 BUN/Creatinine Ratio 26.7 H Glucose 100 Calcium 8.6 Magnesium 1.9 Ref Test (Refrig) Cancelled Discharge Plan Discharge Plan Patient Disposition: Home Discharge comment: You are being discharged home. Please follow up with your PCP, Dr. Cameron, in the next 1 week with CBC and decision made whether to restart Xarelto based on platelets. Please follow up with wound care, Dr. Wiseman , in the next 1 week for continued management of chronic wound. Please follow up with your oncologist, Dr. Ortiz, regarding your prostate cancer and small- cell lung cancer, as well as, your blood work that is pending. Please follow up with your oil prospecting observer, Dr. Quan, regarding a repeat echocardiogram with contrast to further look at the motion of your heart. Discharge Med Rec/Prescriptions Prescriptions: New metoprolol tartrate 25 mg tablet 25 mg PO Q6H PRN (Reason: hypertension) Qty: 30 RF: 0 Continue atorvastatin [Lipitor] 40 MG tablet 40 mg PO BEDTIME Qty: 0 RF: 0 magnesium 200 MG tablet 200 mg PO Q DAY Qty: 0 RF: 0 cholecalciferol (vitamin D3) [Vitamin D3] 2,000 UNIT capsule 2,000 iu PO QDAY Qty: 0 RF: 0 multivitamin [Multiple Vitamins] 1 EACH tablet 1 tab PO QDAY Qty: 0 RF: 0 calcium carbonate 600 MG tablet 1,200 mg PO Q DAY Qty: 0 RF: 0 ascorbic acid (vitamin C) 500 MG tablet 1,500 mg PO DAILY Qty: 0 RF: 0 metformin 500 mg Tablet 500 mg PO BID RF: 0 rivaroxaban [Xarelto] 20 mg Tablet 20 mg PO DAILY Qty: 90 RF: 0 hydrocortisone 20 mg Tablet 40 mg PO BID RF: 0 nitroglycerin [Nitrostat] 0.4 mg Tablet, Sublingual 0.4 mg Sublingual [id number] PRN (Reason: Chest Pain) Qty: 30 RF: 0 timolol 0.5 % Drops 1 dose EYE-LEFT BID RF: 0 mupirocin calcium [Bactroban] 2 % Cream 1 applic TOPICAL BEDTIME RF: 0 prednisone 20 mg tablet 40 mg PO BID RF: 0 omeprazole 20 mg Capsule,Delayed Release(Dr/Ec) 20 mg PO DAILY RF: 0 Probiotic 1 cap PO BID RF: 0 Discontinued methotrexate sodium 2.5 mg Tablet 10 mg PO QWEEK RF: 0 citalopram 10 mg tablet 10 mg PO BEDTIME RF: 0 doxazosin 8 mg tablet 8 mg PO BEDTIME RF: 0 folic acid 400 mcg Tablet 0.8 mg PO DAILY RF: 0 carvedilol 6.25 mg tablet 6.25 mg PO BID RF: 0 Follow up/Referrals: Gurdeep Cameron MD [Primary Care Provider] - 04/30/18 3:45 pm (*appt:05/02 @ 3: 45 w/dr cameron [facility] [phone]) Alfie Wiseman MD [Physician] - 05/01/18 1:45 pm (*appt: 05/01 @ 1:45 W/DR WISEMAN @ [facility] [phone]) Provider Discharge Instructions Diet: Diet as Tolerated Activity: Activity as tolerated with a forward wheeled walker. Please use the exercises as instructed before standing up. Once you stand up stand for several minutes prior to ambulating. Skin/Wound/Dressing Care Report to your healthcare provider any signs of infection, such as:: chills, fever, increased pain, unusual drainage and unusual redness Other wound treatment: Continue dressing wound as instructed. Visit Report/Discharge Packet Instructions: DI for Orthostatic Hypotension, DI for Pneumonia -- Adult, Metoprolol Visit Report Forms: Stroke Signs & Symptoms Discharge Data Primary Care Provider: Gurdeep Cameron V Attending Provider: Aisha Helms Admit Date/Time: 04/17/18 14:22 Discharges patient from system. Discharge Date/Time: 04/26/18 11:00
[2018-04-26 14:09] LABS: Metanephrine, Free 29 pg/mL (< OR = 57); Normetanephrine, Free 31 pg/mL (< OR = 148)
[2018-04-26 16:45] LABS: Acetylcholine Rec Blocking AB <15 (<15)
[2018-04-26 16:56] LABS: Acetylcholine receptor antibod 18
[2018-04-26 22:16] LABS: Total Volume 1475 mL; Urine, Metanephrine 71 mcg/24 h (90-315); Urine, Normetanephrine 118 mcg/24 h (122-676)
== END 2018-04-26 11:00 | disposition home health service (06) | DRG 981 ==
LOC: ED 13:00 → AC 14:23
PROVIDERS: Emergency Medicine; Family Medicine; Internal Medicine; Nurse Practitioner Adult Health; Admitting Provider Internal Medicine; Emergency Provider Internal Medicine; PCP Internal Medicine; Visit Provider Internal Medicine
DX: E27.40 Unspecified adrenocortical insufficiency (principal); J18.9 Pneumonia, unspecified organism; D61.810 Antineoplastic chemotherapy induced pancytopenia; C79.51 Secondary malignant neoplasm of bone; C34.92 Malignant neoplasm of unspecified part of left bronchus or lung; I96 Gangrene, not elsewhere classified; I95.1 Orthostatic hypotension; C61 Malignant neoplasm of prostate; L76.82 Other postprocedural complications of skin and subcutaneous tissue; S41.102A Unspecified open wound of left upper arm, initial encounter; I25.10 Atherosclerotic heart disease of native coronary artery without angina pectoris; E78.5 Hyperlipidemia, unspecified; Z87.891 Personal history of nicotine dependence; Z79.84 Long term (current) use of oral hypoglycemic drugs; F32.9 Major depressive disorder, single episode, unspecified; M06.9 Rheumatoid arthritis, unspecified; T38.0X5A Adverse effect of glucocorticoids and synthetic analogues, initial encounter; T45.1X5A Adverse effect of antineoplastic and immunosuppressive drugs, initial encounter; E11.65 Type 2 diabetes mellitus with hyperglycemia; H40.9 Unspecified glaucoma; I10 Essential (primary) hypertension; R55 Syncope and collapse
CPT/HCPCS: 36415; 36591; 70450; 70553; 71046; 80048; 80053; 81003; 81015; 82533; 82550; 82962; 83036; 83519; 83605; 83735; 83835; 83880; 84100; 84146; 84484; 85025; 86140; 87040; 87070; 87075; 87077; 87086; 87205; 93005; 94660; 94760; 94762; 96360; 97116; 97163; 97164; 97530; 99284; 99285; A9579; C8929; J0692; J1956; J3480; J8610

== ENCOUNTER → 2018-05-01 14:07 | Outpatient (CLI) | payer MEDICARE, OTHER, SELFPAY ==
[2018-04-17 16:32] VITALS: BMI 31.1
== END ==
PROVIDERS: PCP Internal Medicine; Referring Provider Internal Medicine; Visit Provider Family Medicine
DX: T81.31XA Disruption of external operation (surgical) wound, not elsewhere classified, initial encounter (principal); S71.002A Unspecified open wound, left hip, initial encounter; S41.102A Unspecified open wound of left upper arm, initial encounter
CPT/HCPCS: 11042; 99213

== ENCOUNTER → 2018-05-08 13:16 | Outpatient (CLI) | payer MEDICARE, OTHER, SELFPAY ==
[2018-04-17 16:32] VITALS: BMI 31.1
== END ==
PROVIDERS: PCP Internal Medicine; Visit Provider Family Medicine
DX: S71.002A Unspecified open wound, left hip, initial encounter (principal); S41.102A Unspecified open wound of left upper arm, initial encounter
CPT/HCPCS: 99212; 99213

== ENCOUNTER → 2018-05-15 13:10 | Outpatient (CLI) | payer MEDICARE, OTHER, SELFPAY ==
[2018-04-17 16:32] VITALS: BMI 31.1
== END ==
PROVIDERS: PCP Internal Medicine; Visit Provider Family Medicine
DX: S71.002A Unspecified open wound, left hip, initial encounter (principal)
CPT/HCPCS: 97597

== ENCOUNTER → 2018-05-22 09:58 | Outpatient (CLI) | payer MEDICARE, OTHER, SELFPAY ==
[2018-04-17 16:32] VITALS: BMI 31.1
== END ==
PROVIDERS: PCP Internal Medicine; Visit Provider Family Medicine
DX: S71.002D Unspecified open wound, left hip, subsequent encounter (principal)
CPT/HCPCS: 99212; 99213

== ENCOUNTER → 2018-05-29 10:29 | Outpatient (CLI) | payer MEDICARE, OTHER, SELFPAY ==
[2018-04-17 16:32] VITALS: BMI 31.1
== END ==
PROVIDERS: PCP Internal Medicine; Visit Provider Family Medicine
DX: Z48.817 Encounter for surgical aftercare following surgery on the skin and subcutaneous tissue (principal)
CPT/HCPCS: 99212; 99214

== ENCOUNTER → 2018-06-18 10:34 | Outpatient (CLI) | payer MEDICARE, OTHER, SELFPAY ==
[2018-04-17 16:32] VITALS: BMI 31.1
--- NOTE | 2018-06-18 11:09 | DI.CT.S_ITS ---
PROCEDURE: CT CHEST W CON INDICATIONS: lung cancer TECHNIQUE: After the administration of intravenous contrast, 5 mm thick sections acquired from the pulmonary apices to the posterior costophrenic angles. 7 mm thick coronal and sagittal MIP reformats were acquired. For radiation dose reduction, the following was used: automated exposure control, adjustment of mA and/or kV according to patient size. COMPARISON: [facility], CT, CHEST/ABD/PEL WITH CONTRAST, 07/10/2017, 9:19. [facility], CT, CT CHEST WO CON, 09/25/2017, 9:23. [facility], CR, XR CHEST 2V, 04/17/2018, 13:20. [facility], CT, CT CHEST ABD PEL W CON, 12/29/2017, 12:13. [facility], CR, XR CHEST 2V, 10/17/2017, 14:08. [facility], CT, CT CHEST W CON, 03/30/2018, 15:09. FINDINGS: Image quality: Excellent. Lungs and pleura: No acute air space opacities. Within the lingular segment of the left upper lobe, near the left ventricular apex, there is a persistent alveolar scarring and lung parenchymal scarring pattern consistent with post radiation fibrosis given the presence of a lobulated mass in that area seen during CT scanning 07/10/17. A recurrent mass in this area is not present. No new mass lesion is seen elsewhere. No pleural effusions or pneumothorax. Central and peripheral airways are patent and normal in caliber. Mediastinum: Heart size is normal. No pericardial effusion. No mediastinal or hilar adenopathy by size criteria. Thoracic aorta and central pulmonary arteries are normal in size. Esophagus is normal in caliber. No hiatal hernia. Bones and chest wall: No suspicious bony lesions. No vertebral body compression fractures. No axillary or supraclavicular adenopathy by size criteria. Thyroid gland appears normal. Abdomen: Visualized upper abdominal solid organs appear normal. Upper abdominal bowel loops are normal in caliber. IMPRESSION: Interval improvement in linear and alveolar scarring lingular segment left upper lobe in an area of presumed prior radiation therapy left lower lung. No new mass has developed, no mediastinal or hilar adenopathy is present and no distant metastatic disease is seen. Dictated by: Boris Flowers M.D. on 06/18/2018 at 13:34 Approved by: Boris Flowers M.D. on 06/18/2018 at 13:38
[2018-06-18 11:25] LABS: Add Manual Diff / Slide Review NO; Basophils Absolute Auto 100 /uL (0-100); Basophils Percent Auto 1.6 % (0-2); Eosinophils Absolute Auto 100 /uL (0-450); Eosinophils Percent Auto 0.8 % (2-4); Hematocrit 39.1 % (41-53); Hemoglobin 13.2 g/dL (13.5-17.5); Lymphocytes Absolute Auto 1300 /uL (1100-4500); Mean Corpuscular HGB Conc 33.7 % (30-36); Mean Corpuscular Hemoglobin 32.8 PG (26-34); Mean Corpuscular Volume 97.1 fL (80-100); Monocytes Absolute Auto 400 /uL (0-900); Monocytes Percent Auto 4.8 % (3-14); Neutrophils Absolute Auto 5500 /uL (1500-7000); Neutrophils Percent Auto 74.8 % (50-75); Platelet Count 76 X10^3/uL (150-400); Red Blood Cell Count 4.03 X10^6/uL (4.5-5.9); Red Cell Distribution Width 15.3 % (11.6-14.8); White Blood Cell Count 7.3 X10^3/uL (4.5-11.0)
[2018-06-18 11:43] LABS: Alanine Aminotransferase 41 IU/L (21-72); Albumin 3.3 g/dL (3.5-5.0); Albumin Globulin Ratio 1.7 (1.0-2.8); Alkaline Phosphatase 44 U/L (38-126); Aspartate Aminotransferase 23 IU/L (17-59); Bilirubin Total 0.8 mg/dL (0.2-1.3); Blood Urea Nitrogen 23 mg/dL (9-20); Carbon Dioxide 29 mmol/L (22-32); Chloride 101 mmol/L (98-107); Estimated Glomerular Filt Rate > 60.0 mL/min (>60); Glucose 261 mg/dL (80-110); HEMOLYSIS < 15 (0-50); Potassium 3.8 mmol/L (3.4-5.1); Sodium 139 mmol/L (137-145); Total Protein 5.3 g/dL (6.3-8.2)
[2018-06-18 12:10] LABS: Prostate Specific Antigen < 0.064 ng/mL (0.10-4.00)
== END ==
PROVIDERS: PCP Internal Medicine
DX: C34.90 Malignant neoplasm of unspecified part of unspecified bronchus or lung (principal); C61 Malignant neoplasm of prostate
CPT/HCPCS: 36415; 71260; 80053; 84153; 85025; Q9967

== ENCOUNTER → 2018-08-23 09:36 | Outpatient (CLI) | payer MEDICARE, OTHER, SELFPAY ==
[2018-04-17 16:32] VITALS: BMI 31.1
--- NOTE | 2018-08-23 | DI.NM.S_ITS ---
PROCEDURE: DE BONE SCAN WHOLE BODY RADIOPHARMACEUTICAL: 19.8 mCi Tc-99m MDP IV. INDICATIONS: Personal history of malignant neoplasm of prostate TECHNIQUE: Delayed whole-body scintigrams were obtained approximately 3-4 hours after intravenous injection of radiotracer. Anterior and posterior views were acquired from vertex to feet. Additional left and right oblique views of the pelvis were obtained. COMPARISON: [place], [place], BONE SCAN WHOLE BODY, 05/25/2017, 12:54. [place], [place], PET NECK TO MID THIGH, 07/28/2017, 9:54. [facility], CT, CT CHEST W CON, 03/30/2018, 15:09. [facility], CT, CT ABDOMEN PELVIS W CON, 03/29/2018, 12:45. [facility], CT, CT CHEST W CON, 06/18/2018, 12:14. FINDINGS: There is increased activity in the right scapula glenoid, according with sclerosis on CT, consistent with metastasis. There is a focal uptake in the left proximal femur near the greater trochanter correlated with a sclerotic bone lesion, consistent with metastasis. Compared with the last bone scan on 05/11/2017, osseous lesions are stable. No lesions are identified in skull, sternum, clavicles, ribs, bony pelvis, and visualized shafts of the long bones. There is low level increased uptake in cervical, thoracic and lumbar spine with distribution indistinguishable from degenerative disc and facet disease; early metastasis to spine could be obscured by degenerative changes. There are foci of increased periarticular activity involving sternoclavicular joints and feet, compatible with degenerative/arthritic changes. There are 2 kidneys, normal in size and position. There is normal soft tissue uptake. IMPRESSION: Stable bone scan with abnormal uptake in the right scapula and left proximal femur consistent with metastatic disease. Dictated by: Belinda Martin M.D. on 08/23/2018 at 15:50 Approved by: Belinda Martin M.D. on 08/23/2018 at 17:24
== END ==
PROVIDERS: Family Provider Internal Medicine; PCP Internal Medicine; Visit Provider Radiology Radiation Oncology
DX: C79.51 Secondary malignant neoplasm of bone (principal); M25.511 Pain in right shoulder; Z85.46 Personal history of malignant neoplasm of prostate
CPT/HCPCS: 78306; A9503

== ENCOUNTER → 2018-09-18 10:48 | Outpatient (CLI) | payer MEDICARE, OTHER, SELFPAY ==
[2018-04-17 16:32] VITALS: BMI 31.1
[2018-09-18 11:11] LABS: Add Manual Diff / Slide Review NO; Basophils Absolute Auto 0 /uL (0-100); Basophils Percent Auto 0.3 % (0-2); Eosinophils Absolute Auto 100 /uL (0-450); Eosinophils Percent Auto 0.8 % (2-4); Hematocrit 38.7 % (41-53); Hemoglobin 13.5 g/dL (13.5-17.5); Lymphocytes Absolute Auto 1000 /uL (1100-4500); Lymphocytes Percent Auto 13.9 % (25-40); Mean Corpuscular HGB Conc 34.8 % (30-36); Mean Corpuscular Hemoglobin 32.8 PG (26-34); Mean Corpuscular Volume 94.2 fL (80-100); Monocytes Absolute Auto 500 /uL (0-900); Monocytes Percent Auto 6.6 % (3-14); Neutrophils Absolute Auto 5500 /uL (1500-7000); Neutrophils Percent Auto 78.4 % (50-75); Platelet Count 79 X10^3/uL (150-400); Red Blood Cell Count 4.11 X10^6/uL (4.5-5.9); Red Cell Distribution Width 13.7 % (11.6-14.8)
[2018-09-18 11:30] LABS: Alanine Aminotransferase 26 IU/L (21-72); Albumin 3.8 g/dL (3.5-5.0); Albumin Globulin Ratio 1.7 (1.0-2.8); Alkaline Phosphatase 59 U/L (38-126); Aspartate Aminotransferase 24 IU/L (17-59); Bilirubin Total 1.2 mg/dL (0.2-1.3); Blood Urea Nitrogen 18 mg/dL (9-20); Calcium 9.3 mg/dL (8.4-10.2); Carbon Dioxide 31 mmol/L (22-32); Chloride 102 mmol/L (98-107); Estimated Glomerular Filt Rate > 60.0 mL/min (>60); Globulin 2.3 g/dL (1.7-4.1); Glucose 172 mg/dL (80-110); HEMOLYSIS < 15 (0-50); Sodium 141 mmol/L (137-145); Total Protein 6.1 g/dL (6.3-8.2)
[2018-09-18 12:00] LABS: Prostate Specific Antigen < 0.064 ng/mL (0.10-4.00)
--- NOTE | 2018-09-18 12:00 | DI.CT.S_ITS ---
PROCEDURE: CT CHEST ABD PEL W CON INDICATIONS: surveillance lung cancer TECHNIQUE: After the administration of oral and intravenous contrast, 5 mm thick sections acquired from the lung apices to the symphysis. 5 mm coronal and sagittal reformats were performed, with additional 7 mm coronal MIP reformats through the lungs. For radiation dose reduction, the following was used: automated exposure control, adjustment of mA and/or kV according to patient size. COMPARISON: [facility], CT, CT CHEST ABD PEL W CON, 12/29/2017, 12:13. [facility], CT, CHEST/ABD/PEL WITH CONTRAST, 07/10/2017, 9:19. FINDINGS: Image quality: Excellent. CHEST: Lungs and pleura: No acute airspace opacities. There is an area of alveolar fibrotic change perhaps related to prior radiation therapy at this anterolateral left lower lobe. This has been previously present. The lung mass had been present at that site in July of 2017. No pleural effusions or pneumothorax. Central and peripheral airways appear patent and normal in caliber. Mediastinum: Heart size is normal. No pericardial effusion. No mediastinal or hilar adenopathy by size criteria. Thoracic aorta and central pulmonary arteries are normal in size. Esophagus is normal in caliber. No hiatal hernia. Chest wall: No axillary or supraclavicular adenopathy by size criteria. Thyroid gland appears normal. ABDOMEN: Solid organs: Liver is normal in size and enhancement. Gallbladder has been previously resected. Biliary system is non dilated. Pancreas enhances normally. Spleen is normal in size and enhancement. No adrenal nodules. Kidneys demonstrate normal size and enhancement, without hydronephrosis. Peritoneum and bowel: Bowel loops demonstrate normal wall thickness and caliber. No free fluid or air. Nodes and vessels: No retroperitoneal or mesenteric adenopathy by size criteria. Aorta and inferior vena cava are normal in size. Miscellaneous: No ventral hernias. PELVIS: Genitourinary: Bladder wall thickness is normal. Miscellaneous: No inguinal hernias or adenopathy. Bones: No suspicious bony lesions. No vertebral body compression fractures. IMPRESSION: No evidence of metastatic disease. Mild alveolar scarring anterolateral left lower lobe in an area of prior mass lesion, presumably post radiation change. No adenopathy is found. Prior cholecystectomy, no regional or distant metastatic disease is seen. Dictated by: Boris Flowers M.D. on 09/18/2018 at 13:03 Approved by: Boris Flowers M.D. on 09/18/2018 at 13:06
== END ==
PROVIDERS: Family Provider Internal Medicine; PCP Internal Medicine
DX: C34.90 Malignant neoplasm of unspecified part of unspecified bronchus or lung (principal); C61 Malignant neoplasm of prostate; J98.4 Other disorders of lung; Z90.49 Acquired absence of other specified parts of digestive tract
CPT/HCPCS: 36415; 71260; 74177; 80053; 84153; 85025; Q9967

== ENCOUNTER → 2019-01-17 08:59 | Outpatient (CLI) | payer MEDICARE, OTHER, SELFPAY ==
[2018-04-17 16:32] VITALS: BMI 31.1
--- NOTE | 2019-01-17 09:01 | DI.MRI.S_ITS ---
PROCEDURE: MR HEAD/BRAIN WO/W CON INDICATIONS: f/u small cell lung cancer TECHNIQUE: Noncontrast axial T1 spin echo, axial T2 fast spin echo, sagittal and axial FLAIR, coronal T2 fast spin echo, axial gradient echo, axial diffusion and ADC through the brain. After the administration of contrast, axial and coronal T1 spin echo with fat saturation through the brain. COMPARISON: [facility], MR, BRAIN W&WO CONTRAST, 06/26/2017, 7:12. [facility], MR, MR HEAD/BRAIN WO/W CON, 01/12/2018, 8:48. [facility], CT, CT HEAD/BRAIN WO CON, 02/22/2018, 10:16. [facility], CT, CT HEAD/BRAIN WO CON, 04/17/2018, 13:09. [facility], MR, MR HEAD/BRAIN WO/W CON, 04/17/2018, 17:58. FINDINGS: Image quality: This examination is limited by involuntary motion artifact. CSF spaces: Basal cisterns are patent. No extra-axial fluid collections. Ventricles are normal in size and shape. Brain: No midline shift. No intracranial bleeds or masses. No abnormal intracranial enhancement. There is cerebral volume loss for age. There is periventricular white matter chronic small vessel ischemic change. The brainstem appears normal. Diffusion-weighted images demonstrate no acute ischemic insults. No chronic ischemic insults. Normal intravascular flow voids are present. Skull and face: Calvarial marrow is normal in signal. Orbits appear normal. Note is made of bilateral lens replacements. Sinuses: There is a mucous retention cyst seen within the right maxillary sinus. Minimal mucosal thickening is seen elsewhere within the paranasal sinuses. No abnormal mastoid air cell fluid can be seen. IMPRESSION: No findings of metastatic disease are seen. No masses or abnormal enhancement can be seen. Note is made of age-appropriate brain parenchymal volume loss and chronic small vessel ischemic changes. No findings of acute or subacute infarction can be seen. Right maxillary sinus mucous retention cyst again incidentally noted. Dictated by: Tramaine Meng M.D. on 01/17/2019 at 10:34 Approved by: Tramaine Meng M.D. on 01/17/2019 at 10:36
[2019-01-17 09:46] LABS: Add Manual Diff / Slide Review NO; Basophils Absolute Auto 0 /uL (0-100); Basophils Percent Auto 0.4 % (0-2); Eosinophils Absolute Auto 200 /uL (0-450); Eosinophils Percent Auto 3.1 % (2-4); Hematocrit 42.2 % (41-53); Hemoglobin 14.2 g/dL (13.5-17.5); Lymphocytes Absolute Auto 1700 /uL (1100-4500); Mean Corpuscular HGB Conc 33.6 % (30-36); Mean Corpuscular Volume 95.2 fL (80-100); Monocytes Absolute Auto 500 /uL (0-900); Monocytes Percent Auto 7.9 % (3-14); Neutrophils Absolute Auto 4000 /uL (1500-7000); Neutrophils Percent Auto 61.6 % (50-75); Platelet Count 81 X10^3/uL (150-400); Red Blood Cell Count 4.43 X10^6/uL (4.5-5.9); Red Cell Distribution Width 14.5 % (11.6-14.8); White Blood Cell Count 6.4 X10^3/uL (4.5-11.0)
[2019-01-17 10:07] LABS: Alanine Aminotransferase 25 IU/L (21-72); Albumin 3.8 g/dL (3.5-5.0); Albumin Globulin Ratio 1.7 (1.0-2.8); Alkaline Phosphatase 55 U/L (38-126); Aspartate Aminotransferase 24 IU/L (17-59); Bilirubin Total 0.9 mg/dL (0.2-1.3); Blood Urea Nitrogen 15 mg/dL (9-20); Calcium 9.5 mg/dL (8.4-10.2); Carbon Dioxide 31 mmol/L (22-32); Chloride 104 mmol/L (98-107); Estimated Glomerular Filt Rate > 60.0 mL/min (>60); Globulin 2.3 g/dL (1.7-4.1); Glucose 121 mg/dL (80-110); HEMOLYSIS < 15 (0-50); Sodium 141 mmol/L (137-145); Total Protein 6.1 g/dL (6.3-8.2)
--- NOTE | 2019-01-17 10:12 | DI.CT.S_ITS ---
PROCEDURE: CT CHEST ABD PEL W CON INDICATIONS: Lung cancer TECHNIQUE: After the administration of oral and intravenous contrast, 5 mm thick sections acquired from the lung apices to the symphysis. 5 mm coronal and sagittal reformats were performed, with additional 7 mm coronal MIP reformats through the lungs. For radiation dose reduction, the following was used: automated exposure control, adjustment of mA and/or kV according to patient size. COMPARISON: [facility], [place], [place] BONE SCAN WHOLE BODY, 08/23/2018, 12:59. [facility], CT, BIOPSYLUNG, 06/08/2017, 0:00. [facility], CT, CT CHEST W CON, 06/18/2018, 12:14. [facility], CT, CT CHEST ABD PEL W CON, 09/18/2018, 11:46. FINDINGS: Image quality: Excellent. CHEST: Lungs and pleura: In the subpleural lingula, area of original mass, there is increasing subpleural consolidation, peribronchial thickening, and slight architectural distortion. This masslike consolidation measures approximately 2.9 x 1.7 cm and tethers the adjacent pleural surfaces. There is thickening of the pleural surface extending cranial for a length of approximately 5.8 cm which has been present for multiple prior exams. At the left medial lung apex, there is a stable 6 mm nodule. Pleural thickening posteriorly in the right upper lobe, and subpleural groundglass opacity in the right lower lobe is similar. No other new masses. No acute airspace opacities. No pleural effusions or pneumothorax. Central and peripheral airways appear patent and normal in caliber. Mediastinum: Heart size is at the upper limits of normal. Heavy coronary calcification. No pericardial effusion. No mediastinal or hilar adenopathy by size criteria. Thoracic aorta and central pulmonary arteries are normal in size. Esophagus is normal in caliber. Small hiatal hernia. Chest wall: No axillary or supraclavicular adenopathy by size criteria. Thyroid gland is normal. ABDOMEN: Solid organs: Liver is normal in size and enhancement. Gallbladder is surgically absent. Biliary system is non dilated. Pancreas enhances normally. Spleen is normal in size and enhancement. No adrenal nodules. There is a left, 7 mm ureteropelvic junction calcification causing mild hydronephrosis. Punctate, nonobstructing 4 mm left upper pole intrarenal calcification is also present. There are 3 or 4 cortical partially exophytic cysts in the left kidney, and 2 in the right. Kidneys demonstrate normal size and enhancement, without hydronephrosis. Peritoneum and bowel: Bowel loops demonstrate normal wall thickness and caliber. Normal appendix. Moderate to extensive sigmoid diverticulosis. No free fluid or air. Nodes and vessels: No retroperitoneal or mesenteric adenopathy by size criteria. Abdominal aorta is irregular, moderately atherosclerotic, and mildly ectatic. Miscellaneous: No ventral hernias. PELVIS: Genitourinary: Bladder wall is mildly irregular, mildly thickened, stable compared to prior studies. The prostate gland is at the upper limits of normal to mildly enlarged. Miscellaneous: No inguinal hernias or adenopathy. Bones: . Chronic sclerotic lesion in the left proximal femur. Severe facet arthropathy in the lower lumbar spine. Heterogeneous, sclerotic marrow in the right scapula. No vertebral body compression fractures. IMPRESSION: 1. There is increasing consolidation in the lingula, area of original neoplasm, suspicious for recurrent disease. 2. No mediastinal or hilar adenopathy. 3. There are sclerotic marrow changes in the right scapula and left proximal femur consistent with metastatic disease. 4. Interval movement of a prior nonobstructing calculus from the left lower pole kidney into the left ureteropelvic junction causing mild left hydronephrosis. Correlate clinically and consider urology consultation. There is a remaining 4 mm nonobstructing upper pole intrarenal calcification on the same side. 5. Sigmoid diverticulosis without acute diverticulitis. 6. Chronic urinary bladder wall irregularity and thickening suggestive of bilateral obstruction, probably secondary to a mild prostatomegaly. Dictated by: Izzy Bergeron M.D. on 01/17/2019 at 13:22 Approved by: Izzy Bergeron M.D. on 01/17/2019 at 13:45
[2019-01-17 10:38] LABS: Prostate Specific Antigen < 0.064 ng/mL (0.10-4.00)
== END ==
PROVIDERS: PCP Internal Medicine
DX: C34.90 Malignant neoplasm of unspecified part of unspecified bronchus or lung (principal); C61 Malignant neoplasm of prostate; N13.0 Hydronephrosis with ureteropelvic junction obstruction; K57.30 Diverticulosis of large intestine without perforation or abscess without bleeding; N40.0 Benign prostatic hyperplasia without lower urinary tract symptoms; J34.1 Cyst and mucocele of nose and nasal sinus
CPT/HCPCS: 36415; 70553; 71260; 74177; 80053; 84153; 85025; A9579; Q9967

== ENCOUNTER → 2019-03-11 08:59 | Outpatient (CLI) | payer MEDICARE, OTHER, SELFPAY ==
[2018-04-17 16:32] VITALS: BMI 31.1
[2019-03-11 10:37] LABS: Add Manual Diff / Slide Review NO; Basophils Absolute Auto 0 /uL (0-100); Basophils Percent Auto 0.3 % (0-2); Eosinophils Absolute Auto 100 /uL (0-450); Eosinophils Percent Auto 1.6 % (2-4); Hemoglobin 13.6 g/dL (13.5-17.5); Lymphocytes Absolute Auto 2100 /uL (1100-4500); Lymphocytes Percent Auto 28.1 % (25-40); Mean Corpuscular Hemoglobin 32.1 PG (26-34); Mean Corpuscular Volume 94.2 fL (80-100); Monocytes Absolute Auto 600 /uL (0-900); Monocytes Percent Auto 7.9 % (3-14); Neutrophils Absolute Auto 4800 /uL (1500-7000); Neutrophils Percent Auto 62.1 % (50-75); Platelet Count 99 X10^3/uL (150-400); Red Blood Cell Count 4.24 X10^6/uL (4.5-5.9); White Blood Cell Count 7.6 X10^3/uL (4.5-11.0)
[2019-03-11 10:45] LABS: Alanine Aminotransferase 15 IU/L (<50); Albumin 4.2 g/dL (3.5-5.0); Albumin Globulin Ratio 1.8 (1.0-2.8); Alkaline Phosphatase 69 U/L (38-126); Aspartate Aminotransferase 24 IU/L (17-59); Bilirubin Total 0.9 mg/dL (0.2-1.3); Blood Urea Nitrogen 30 mg/dL (9-20); Calcium 9.5 mg/dL (8.4-10.2); Carbon Dioxide 31 mmol/L (22-32); Chloride 101 mmol/L (98-107); Estimated Glomerular Filt Rate 45.1 mL/min (>60); Globulin 2.4 g/dL (1.7-4.1); Glucose 130 mg/dL (80-110); HEMOLYSIS < 15 (0-50); Sodium 140 mmol/L (137-145); Total Protein 6.6 g/dL (6.3-8.2)
[2019-03-11 11:16] LABS: Prostate Specific Antigen < 0.064 ng/mL (0.10-4.00)
== END ==
PROVIDERS: PCP Internal Medicine; Visit Provider Internal Medicine
DX: C61 Malignant neoplasm of prostate (principal)
CPT/HCPCS: 36415; 80053; 84153; 85025

== ENCOUNTER → 2019-06-13 09:34 | Outpatient (CLI) | payer MEDICARE, OTHER, SELFPAY ==
[2018-04-17 16:32] VITALS: BMI 31.1
--- NOTE | 2019-06-13 09:38 | DI.CT.S_ITS ---
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 5 mm coronal and sagittal reformats were performed, with additional 7 mm coronal MIP reformats through the lungs. For radiation dose reduction, the following was used: automated exposure control, adjustment of mA and/or kV according to patient size. COMPARISON: [facility], [place], [place] BONE SCAN WHOLE BODY, 08/23/2018, 12:59. [facility], CT, CT CHEST ABD PEL W CON, 01/17/2019, 10:35. [facility], CT, CT CHEST ABD PEL W CON, 09/18/2018, 11:46. FINDINGS: Image quality: Excellent. CHEST: Lungs and pleura: No acute airspace opacities. The area of lingular segment left upper lobe radiation therapy shows fibrotic change but no mass, and no definite change from the most recent prior study 01/17/19. It also is not significantly changed from 09/18/18. No definite recurrent malignancy in the treatment bed is identified. No pleural effusions or pneumothorax. Central and peripheral airways appear patent and normal in caliber. Mediastinum: Heart size is normal. No pericardial effusion. No mediastinal or hilar adenopathy by size criteria. Thoracic aorta and central pulmonary arteries are normal in size. Esophagus is normal in caliber. No hiatal hernia. Chest wall: No axillary or supraclavicular adenopathy by size criteria. Thyroid gland appears normal. Note is again made of sclerosis at the base of the right glenoid, and osteoblastic change documented also by nuclear medicine bone scan 08/23/18. ABDOMEN: Solid organs: Liver is normal in size and enhancement. Gallbladder has been previously resected. Biliary system is non dilated. Pancreas enhances normally. Spleen is normal in size and enhancement. No adrenal nodules. Kidneys demonstrate normal size and enhancement, without hydronephrosis. Note is again made of a left-sided 9 mm renal pelvis calculus, and this calculus appears to have been immobile in position having been at times seen within a calyx of the left kidney. It appears to have slowly enlarged over time. Peritoneum and bowel: Bowel loops demonstrate normal wall thickness and caliber. No free fluid or air. Nodes and vessels: No retroperitoneal or mesenteric adenopathy by size criteria. Aorta and inferior vena cava are normal in size. Miscellaneous: No ventral hernias. PELVIS: Genitourinary: Bladder wall thickness is normal. Miscellaneous: No inguinal hernias or adenopathy. Bones: No new suspicious bony lesions, and again noted is a small 1.3 cm left intertrochanteric hip sclerotic bone lesion, previously present and positive on prior bone scan. No vertebral body compression fractures. IMPRESSION: 1. The lingular segment airspace disease is not associated with a identifiable mass lesion, and has not changed over recent studies, and likely reflects postradiation fibrotic change. 2. 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 No new bone lesion has developed. 3. Prior cholecystectomy. Mobile calculus measuring up to 9 mm currently nonobstructive at the pelvis of the left kidney. Dictated by: Boris Flowers M.D. on 06/13/2019 at 15:08 Approved by: Boris Flowers M.D. on 06/13/2019 at 15:20
--- NOTE | 2019-06-13 09:38 | DI.NM.S_ITS ---
PROCEDURE: SC BONE SCAN WHOLE BODY RADIOPHARMACEUTICAL: 21.3 mCi Tc-99m MDP IV. 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 Anterior and posterior views were acquired from vertex to feet. Additional left and right oblique views of the pelvis were obtained. COMPARISON: [facility], CT, CT CHEST ABD PEL W CON, 06/13/2019, 10:59. [place], [place], [place] BONE SCAN WHOLE BODY, 08/23/2018, 12:59. [place], [place], BONE SCAN WHOLE BODY, 05/25/2017, 12:54. FINDINGS: As was previously the case there is abnormal elevated isotope deposition at the glenoid base on the right, and at the left intertrochanteric hip. This correlates with the abnormal prior nuclear medicine study findings from 08/23/18 and also the current CT examination findings sclerosis at each of those 2 areas. 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 The extensive involvement has not increased, and no new metastatic disease is found. Dictated by: Boris Flowers M.D. on 06/13/2019 at 16:45 Approved by: Boris Flowers M.D. on 06/13/2019 at 16:49
== END ==
PROVIDERS: PCP Internal Medicine; Referring Provider Internal Medicine Hematology & Oncology; Visit Provider Internal Medicine Hematology & Oncology
DX: C61 Malignant neoplasm of prostate (principal); C79.51 Secondary malignant neoplasm of bone; N20.0 Calculus of kidney; Z85.118 Personal history of other malignant neoplasm of bronchus and lung; Z90.49 Acquired absence of other specified parts of digestive tract
CPT/HCPCS: 71260; 74177; 78306; A9503; Q9967

== ENCOUNTER → 2019-06-20 09:32 | Outpatient (CLI) | payer MEDICARE, OTHER, SELFPAY ==
[2018-04-17 16:32] VITALS: BMI 31.1
--- NOTE | 2019-06-20 09:33 | DI.MRI.S_ITS ---
PROCEDURE: MR BRAIN (IAC) WWO CON INDICATIONS: surveillance small cell lung ca post PCI TECHNIQUE: Noncontrast sagittal T1 spin echo, axial FLAIR, axial gradient echo, axial diffusion and ADC through the brain. Axial thin-slice 3D CISS, coronal TruFISP, axial T1 spin echo with fat saturation through the internal auditory canals. After the administration of contrast, thin slice axial and coronal T1 spin echo with fat saturation through the internal auditory canals, and axial T1 spin echo with fat saturation through the brain. COMPARISON: [facility], MR, MR HEAD/BRAIN WO/W CON, 01/17/2019, 10:49. FINDINGS: Image quality: Excellent. Cerebellopontine angles: No cerebellopontine angle masses. Inner ear structures appear normally formed. No suspicious enhancement in the internal auditory canal or along the course of the 7th cranial nerve. CSF spaces: Ventricles are normal in size and shape. No extra-axial fluid collections. Basal cisterns are patent. Brain: No intracranial bleeds or mass effects. Ngo-white matter interface is intact. There is mild microvascular atherosclerotic change in the deep white matter of each hemisphere, and note is made of 2 small posterior thalamic foci of presumed lacunar infarction, previously present, and no acute or subacute ischemic injury is found. No abnormal intracranial enhancement. Diffusion weighted images demonstrate no acute ischemic insults. Brainstem appears normal. Normal intravascular flow voids are present. Skull and face: Calvarial marrow signal is normal. Orbits appear normal. Sinuses: Sinuses and mastoids are clear. 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 Note is made of a uterus retention cyst moderate in size within the right maxillary sinus, without superimposed acute sinusitis. Dictated by: Boris Flowers M.D. on 06/20/2019 at 11:31 Approved by: Boris Flowers M.D. on 06/20/2019 at 11:34
== END ==
PROVIDERS: PCP Internal Medicine; Referring Provider Internal Medicine Hematology & Oncology; Visit Provider Internal Medicine Hematology & Oncology
DX: C61 Malignant neoplasm of prostate (principal); C79.51 Secondary malignant neoplasm of bone; Z85.118 Personal history of other malignant neoplasm of bronchus and lung
CPT/HCPCS: 70553

== ENCOUNTER 2019-06-30 01:45 | Emergency (ER) | payer MEDICARE, OTHER, SELFPAY ==
[2018-04-17 16:32] VITALS: BMI 31.1
[2019-06-30 02:02] VITALS: BP 207/99; PULSE 63; RESP 15; TEMP 36.9; O2SAT 93
[2019-06-30 02:26] LABS: INR 1.1 (0.9-1.3); Prothrombin Time 12.3 SECONDS (10.1-12.7)
[2019-06-30 02:29] LABS: PTT Partial Thromboplastin Tim 36 SECONDS (26.4-36.2)
[2019-06-30 02:30] LABS: Add Manual Diff / Slide Review NO; Alanine Aminotransferase 13 IU/L (<50); Albumin 3.9 g/dL (3.5-5.0); Albumin Globulin Ratio 1.4 (1.0-2.8); Alkaline Phosphatase 65 U/L (38-126); Aspartate Aminotransferase 26 IU/L (17-59); BUN Creatinine Ratio 18.7 (6-22); Basophils Absolute Auto 200 /uL (0-100); Basophils Percent Auto 2.9 % (0-2); Bilirubin Total 0.6 mg/dL (0.2-1.3); Blood Urea Nitrogen 20 mg/dL (9-20); Calcium 9.2 mg/dL (8.4-10.2); Carbon Dioxide 27 mmol/L (22-32); Chloride 107 mmol/L (98-107); Eosinophils Absolute Auto 200 /uL (0-450); Eosinophils Percent Auto 2.7 % (2-4); Estimated Glomerular Filt Rate > 60.0 mL/min (>60); Globulin 2.8 g/dL (1.7-4.1); Glucose 119 mg/dL (80-110); HEMOLYSIS 19 (0-50); Hematocrit 39.3 % (41-53); Hemoglobin 13.5 g/dL (13.5-17.5); Lymphocytes Absolute Auto 1500 /uL (1100-4500); Lymphocytes Percent Auto 21.3 % (25-40); Mean Corpuscular HGB Conc 34.3 % (30-36); Mean Corpuscular Hemoglobin 32.9 PG (26-34); Monocytes Absolute Auto 600 /uL (0-900); Monocytes Percent Auto 8.4 % (3-14); Neutrophils Absolute Auto 4500 /uL (1500-7000); Neutrophils Percent Auto 64.7 % (50-75); Platelet Count 82 X10^3/uL (150-400); Potassium 3.9 mmol/L (3.4-5.1); Red Cell Distribution Width 13.9 % (11.6-14.8); Sodium 139 mmol/L (137-145); Total Protein 6.7 g/dL (6.3-8.2); White Blood Cell Count 6.9 X10^3/uL (4.5-11.0)
[2019-06-30 02:35] LABS: Appearance Urine UA TURBID; Bilirubin Urine UA NEGATIVE (NEGATIVE); Color Urine UA RED; Glucose Urine UA NEGATIVE (Negative); Ketones Urine UA NEGATIVE (NEGATIVE); Leukocyte Esterase Urine UA NEGATIVE (NEGATIVE); Nitrite Urine UA NEGATIVE (Negative); Occult Blood Urine UA 3+ (Negative); Protein Urine UA 2+ (Negative); Urobilinogen Urine UA 0.2 E.U./dL (0.2)
[2019-06-30 02:37] LABS: Bacteria Urine Moderate (10-30); Mucus Urine 1+ (Negative); RBC Urine >100/HPF (0-5/HPF); Squamous Epithelial Cell Urine 0-1 /HPF (0-5/HPF); WBC Urine 0-1/HPF (0-5/HPF)
[2019-06-30 02:38] LABS: Culture Indicated Urine Cult Not Indicated
--- NOTE | 2019-06-30 02:48 | ED.MALEGU ---
HPI - Male Genitourinary General Chief complaint: Urogenital-Male Stated complaint: Gross hematuria x24 hours Time Seen by Provider: 06/30/19 02:16 Source: patient and family Mode of arrival: Family Vehicle Limitations: no limitations History of Present Illness HPI Narrative: HPI: The patient is a 79-year-old male who comes into the emergency department complaining of gross hematuria when he is urinating. The patient does not know how long he has been urinating blood. He recently informed his who brought him into the emergency department to be evaluated. He told the nurse that he may have been urinating blood for a month. His hematuria is painless. He denies a history of flank pain back pain lower abdominal pain and dysuria. He has not had any urinary frequency but may be having some urinary urgency. He is on Xarelto and has been on Xarelto after he had a pulmonary embolism years ago. 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 Because he developed his cancer his doctors continued him on the Xarelto because of the increase risk for recurrent pulmonary embolism. The patient has a history of prostate cancer. The details of all the treatment are sketchy at this time. He denies any fall or injury to his abdomen. He denies any fever chills sweats headache shortness of breath cough chest pain palpitations nausea vomiting diarrhea hematemesis coffee-ground emesis. He has noted no other bleeding problems. He continues to smoke cigarettes and rarely but occasionally drinks alcohol socially. He is a type 2 diabetic with hypertension. He takes metformin for his diabetes. He denies ever being told that he had asthma, COPD, myocardial infarction, congestive heart failure, or stroke. Related Data Home Medications Medication Instructions Recorded Confirmed atorvastatin [Lipitor] 40 mg PO BEDTIME #0 03/21/17 05/08/19 metformin 500 mg PO BID 01/02/18 05/08/19 omeprazole 20 mg PO DAILY 04/17/18 05/08/19 citalopram 10 mg tablet 20 mg PO DAILY tab 07/03/18 05/08/19 Respironics Dreamstation BIPAP #1 ea 08/29/18 05/08/19 prednisone 10 mg tablet 10 mg PO DAILY 08/29/18 05/08/19 alpha lipoic acid 600 mg PO DAILY 11/28/18 05/08/19 cyanocobalamin (vitamin B-12) 1,000 mcg PO DAILY 11/28/18 05/08/19 [Vitamin B-12] furosemide 20 mg PO DAILY PRN 01/22/19 05/08/19 losartan 50 mg PO DAILY 01/22/19 05/08/19 carvedilol 25 mg PO BID 05/08/19 05/08/19 minoxidil 10 mg PO DAILY 05/08/19 05/08/19 Previous Rx's Medication Instructions Recorded Xarelto 20 mg PO DAILY #90 tab 02/07/18 tamsulosin [Flomax] 0.4 mg PO DAILY #30 cap 08/01/18 prednisone See Rx Instructions .ROUTE 04/30/19 .COMPLEX #30 ea ondansetron HCl [Zofran] 4 mg PO Q6H PRN #8 tab 06/30/19 oxycodone-acetaminophen [Percocet] 1 tab PO Q4-6H PRN #10 tab 06/30/19 Allergies Allergy/AdvReac Type Severity Reaction Status Date / Time chlorthalidone Allergy Verified 01/08/19 09:01 hydroxychloroquine Allergy Verified 01/08/19 09:01 [From Plaquenil] niacin [NIACIN] AdvReac Severe Hypotension Verified 01/08/19 09:01 amlodipine [AMLODIPINE] AdvReac Unknown Verified 01/08/19 09:01 gemfibrozil [GEMFIBROZIL] AdvReac Unknown Verified 01/08/19 09:01 hydrochlorothiazide AdvReac Unknown Verified 01/08/19 09:01 [HYDROCHLOROTHIAZIDE] lisinopril [LISINOPRIL] AdvReac Unknown Verified 01/08/19 09:01 Review of Systems Review of Systems Narrative: Review of systems are all negative except for those mentioned in the history of present illness. Patient History Medical History Coronary artery disease (Chronic) Depression (Chronic) Diabetes type 2, controlled (Chronic) History of nephrolithotomy with removal of calculi (Resolved) History of pulmonary embolism (Resolved) Hyperlipidemia (Chronic) Hypertension (Chronic) Kidney stone (Resolved) Leukopenia (Chronic) Metastatic malignant neoplasm to prostate (Chronic) Obstructive sleep apnea of adult (Chronic) Prostate cancer metastatic to bone (Chronic) Renal insufficiency (Chronic) Rheumatoid arthritis (Chronic) Small cell lung cancer (Chronic) Thrombocytopenia (Chronic) Thrombophlebitis of arm, left (Resolved) UTI (urinary tract infection) (Inactive) Surgical History H/O coronary angioplasty (Resolved) H/O umbilical hernia repair (Acute) History of appendectomy (Resolved) History of cholecystectomy (Resolved) Family History Father No problems noted. Mother No problems noted. Brother Hx of CABG Diabetes mellitus Coronary artery disease Social History marital status: unmarried,living together details: partner Vanessa Alonso, lives in [place] household members: significant other lives independently: No caregiver/support person: Yes Smoking Status: Current every day smoker alcohol intake: never Smoking Status: Current every day smoker Substance Use Type: does not use Exam Narrative Exam Narrative: PHYSICAL EXAM: CONSTITUTIONAL: Awake, Alert, Oriented, Coherent, Cooperative in NAD. Does not appear toxic or ill. The patient is obese HEAD: AT/NC EENT: PERRL, FROM of eyes, no discharge, Oral mucosa is moist and pink, posterior pharynx is without erythema or exudate. NECK: Supple, no obvious JVD, Trachea is midline without stridor, SPINE: No gross deformity, no palpable tenderness of the cervical, thoracic, lumbar or sacral spine. No CVA tenderness. THORAX: No deformity, retractions, chest wall tenderness, he has increased AP diameter LUNGS: Breath sounds are decreased bilaterally with a few scattered expiratory rhonchi. HEART: Normal heart tones, regular rhythm and rate without murmur. ABDOMEN: Soft, globular, doughy, rotund without any specific point tenderness guarding rebound or rigidity. EXTREMITIES: No edema, cyanosis, deformity or tenderness. SKIN: No rash, bruising, petechiae or purpura. NEURO: Awake, alert, oriented, conversive, cranial nerves II-XII are symmetrical and normal, moves all 4 extremities Initial Vital Signs Initial Vital Signs: Vital Signs Temperature 98.5 F 06/30/19 02:02 Pulse Rate 63 06/30/19 02:02 Respiratory Rate 15 03/22/20 02:02 Blood Pressure 207/99 H 06/30/19 02:02 Pulse Oximetry 93 06/30/19 02:02 Course Course Course Narrative: 0340: The patient at this time is not having any acute abdominal or back pain. His urinalysis does not show an acute urinary tract infection. The patient's GFR is greater than 60 with a creatinine of 1.07. The patient has a history of small-cell carcinoma of the long and prostate cancer. CT of his abdomen with IV contrast will be ordered to rule out any possible renal cell cancer or kidney tumor causing his hematuria. The patient will need to be seen and evaluated by urology and a cystoscopy performed to rule out the possibility of any bladder cancer. The patient's hemoglobin is stable and vitals are stable. 0400 the patient's nurse Panchito was talking with the patient and his and they said that he just had a number of different scans for his oncologist. He did not inform us that he had a kidney stone. However a contrast CT scan of his abdomen on June 12 did not reveal any evidence of a renal cell tumor or mass but there was a kidney stone present. A noncontrast CT scan of his abdomen will be obtained at this time. [address] scan according to the radiologist's reveals a moderate left hydronephrosis. There is an obstructing stone in the proximal left ureter immediately below the ureteropelvic junction. This measures 3 by 4 x 6 cubic mm. There is a large stone in the lower left renal pelvis, which does not appear to be obstructing. This measures 6 x 8 x 12 mm. No obstructing stone is seen on the right side. Bilateral renal cysts are present there is borderline aneurysmal dilation of the infrarenal abdominal aorta. There is evidence of prior cholecystectomy. Orders Ordered: Discontinued Medications Sodium Chloride (Normal Saline 0.9%) 1,000 mls @ 1,000 mls/hr IV BOLUS ONE Stop: 06/30/19 04:45 Last Infusion: 06/30/19 05:26 Dose: 0 mls/hr Documented by: Admin: 06/30/19 04:46 Dose: 1,000 mls/hr Documented by: PRASANNA Vital Signs Vital signs: Vital Signs - 8 hr 06/30/19 02:02 06/30/19 04:51 Temperature 98.5 F Pulse Rate 63 64 Respiratory Rate 15 18 Blood Pressure 207/99 H Blood Pressure [Right Arm] 223/105 H Pulse Oximetry 93 94 MDM - Male Genitourinary Lab Data Result diagrams: 06/30/19 02:05 06/30/19 02:05 Labs: Lab Results 06/30/19 06/30/19 06/30/19 Range/Units 02:05 02:05 02:05 WBC 6.9 (4.5-11.0) X10^3/uL RBC 4.10 L (4.5-5.9) X10^6/uL Hgb 13.5 (13.5-17.5) g/dL Hct 39.3 L (41-53) % MCV 96.0 (80-100) fL MCH 32.9 (26-34) PG MCHC 34.3 (30-36) % RDW 13.9 (11.6-14.8) % Plt Count 82 L (150-400) X10^3/uL Neut % (Auto) 64.7 (50-75) % Lymph % (Auto) 21.3 L (25-40) % [place] % (Auto) 8.4 (3-14) % Eos % (Auto) 2.7 (2-4) % Baso % (Auto) 2.9 H (0-2) % Neut # (Auto) 4500 (2755-8322) /uL Lymph # (Auto) 1500 (0054-8934) /uL [place] # (Auto) 600 (0-900) /uL Eos # (Auto) 200 (0-450) /uL Baso # (Auto) 200 H (0-100) /uL PT 12.3 (10.1-12.7) SECONDS INR 1.1 (0.9-1.3) APTT 36 D (26.4-36.2) SECONDS Sodium 139 (137-145) mmol/L Potassium 3.9 (3.4-5.1) mmol/L Chloride 107 (98-107) mmol/L Carbon Dioxide 27 (22-32) mmol/L BUN 20 (9-20) mg/dL Creatinine 1.07 (0.66-1.25) mg/dL Estimated GFR > 60.0 (>60) mL/min BUN/Creatinine Ratio 18.7 (6-22) Glucose 119 H (80-110) mg/dL Calcium 9.2 (8.4-10.2) mg/dL Total Bilirubin 0.6 (0.2-1.3) mg/dL AST 26 (17-59) IU/L ALT 13 (<50) IU/L Alkaline Phosphatase 65 (38-126) U/L Total Protein 6.7 (6.3-8.2) g/dL Albumin 3.9 (3.5-5.0) g/dL Globulin 2.8 (1.7-4.1) g/dL Albumin/Globulin Ratio 1.4 (1.0-2.8) Urine Color Urine Appearance Urine pH (4.5-8.0) Ur Specific [place] (1.000-1.035) Urine Protein (Negative) Urine Glucose (UA) (Negative) g/dL Urine Ketones (NEGATIVE) Urine Occult Blood (Negative) Urine Nitrate (Negative) Urine Bilirubin (NEGATIVE) Urine Urobilinogen (0.2) E.U./dL Ur Leukocyte Esterase (NEGATIVE) Urine RBC (0-5/HPF) Urine WBC (0-5/HPF) Ur Squamous Epith Cells (0-5/HPF) Urine Bacteria (None) Urine Mucus (Negative) Ur Culture Indicated? 06/30/19 Range/Units 02:25 WBC (4.5-11.0) X10^3/uL RBC (4.5-5.9) X10^6/uL Hgb (13.5-17.5) g/dL Hct (41-53) % MCV (80-100) fL MCH (26-34) PG MCHC (30-36) % RDW (11.6-14.8) % Plt Count (150-400) X10^3/uL Neut % (Auto) (50-75) % Lymph % (Auto) (25-40) % [place] % (Auto) (3-14) % Eos % (Auto) (2-4) % Baso % (Auto) (0-2) % Neut # (Auto) (4324-0094) /uL Lymph # (Auto) (7883-7699) /uL [place] # (Auto) (0-900) /uL Eos # (Auto) (0-450) /uL Baso # (Auto) (0-100) /uL PT (10.1-12.7) SECONDS INR (0.9-1.3) APTT (26.4-36.2) SECONDS Sodium (137-145) mmol/L Potassium (3.4-5.1) mmol/L Chloride (98-107) mmol/L Carbon Dioxide (22-32) mmol/L BUN (9-20) mg/dL Creatinine (0.66-1.25) mg/dL Estimated GFR (>60) mL/min BUN/Creatinine Ratio (6-22) Glucose (80-110) mg/dL Calcium (8.4-10.2) mg/dL Total Bilirubin (0.2-1.3) mg/dL AST (17-59) IU/L ALT (<50) IU/L Alkaline Phosphatase (38-126) U/L Total Protein (6.3-8.2) g/dL Albumin (3.5-5.0) g/dL Globulin (1.7-4.1) g/dL Albumin/Globulin Ratio (1.0-2.8) Urine Color Red Urine Appearance Turbid Urine pH 6.0 (4.5-8.0) Ur Specific [place] 1.020 (1.000-1.035) Urine Protein 2+ H (Negative) Urine Glucose (UA) Negative (Negative) g/dL Urine Ketones Negative (NEGATIVE) Urine Occult Blood 3+ H (Negative) Urine Nitrate Negative (Negative) Urine Bilirubin Negative (NEGATIVE) Urine Urobilinogen 0.2 (0.2) E.U./dL Ur Leukocyte Esterase Negative (NEGATIVE) Urine RBC >100/hpf (0-5/HPF) Urine WBC 0-1/hpf (0-5/HPF) Ur Squamous Epith Cells 0-1 /hpf (0-5/HPF) Urine Bacteria Moderate (10-30) H (None) Urine Mucus 1+ H (Negative) Ur Culture Indicated? Cult not indicated Discharge Plan Departure Patient Disposition: Home Clinical Impression: Gross hematuria, Ureteric calculus, Stone in renal pelvis Hydronephrosis Qualifiers: Hydronephrosis type: with renal calculous obstruction Qualified Code(s): N13.2 - Hydronephrosis with renal and ureteral calculous obstruction Discharge Date/Time: 06/30/19 05:33 Instructions: DI for Kidney Stones Activity Restrictions/Additional Instructions: 1. Call Dr. Bravo's office at [phone] and schedule a follow-up appointment for gross hematuria on Xarelto. The office that he needs to be seen as soon as possible after being seen in the emergency department because he has moderate left-sided hydronephrosis with an obstruction of the proximal left ureter by a 3 x 4 x 6 mm stone. He also has a large stone in the lower left renal pelvis that is 6 x 8 x 12 mm that is not currently obstructing. 2. Return to the emergency department if you develop severe abdominal or flank pain unrelieved by the medication provided. Return to the emergency department if you develop dizziness lightheadedness feel faint pass out or developed fever 3. Continue your current medications. 4. Return to the emergency department if you are unable to urinate and develop plugging or an obstruction to urination. 5. Take Zofran as prescribed for nausea or vomiting and Percocet as prescribed if you developed severe left flank pain. Prescriptions: New oxycodone-acetaminophen [Percocet] 5-325 mg tablet 1 tab PO Q4-6H PRN (Reason: pain) Qty: 10 RF: 0 ondansetron HCl [Zofran] 4 mg tablet 4 mg PO Q6H PRN (Reason: nausea and vomiting) Qty: 8 RF: 0 No Action atorvastatin [Lipitor] 40 MG tablet 40 mg PO BEDTIME Qty: 0 RF: 0 metformin 500 mg Tablet 500 mg PO BID RF: 0 Xarelto 20 mg Tablet 20 mg PO DAILY Qty: 90 RF: 0 citalopram 10 mg tablet 20 mg PO DAILY RF: 0 tamsulosin [Flomax] 0.4 mg Capsule 0.4 mg PO DAILY Qty: 30 RF: 6 cyanocobalamin (vitamin B-12) [Vitamin B-12] 1,000 mcg Tablet 1,000 mcg PO DAILY RF: 0 alpha lipoic acid 600 mg 600 mg PO DAILY RF: 0 losartan 50 mg Tablet 50 mg PO DAILY RF: 0 furosemide 20 mg Tablet 20 mg PO DAILY PRN (Reason: Edema) RF: 0 prednisone 10 mg Tablets,Dose Pack See Rx Instructions .ROUTE .COMPLEX Qty: 30 RF: 5 carvedilol 25 mg Tablet 25 mg PO BID RF: 0 minoxidil 10 mg Tablet 10 mg PO DAILY RF: 0 omeprazole 20 mg Capsule,Delayed Release(Dr/Ec) 20 mg PO DAILY RF: 0 (DME) Respironics Dreamstation BIPAP Qty: 1 RF: 0 prednisone 10 mg tablet 10 mg PO DAILY RF: 0 Referrals: Gurdeep Cameron MD [Primary Care Provider] - ED Sign-out Cosign ED Attending Cosignature Attestation: I was immediately available in the department for consultation. This documentation has been reviewed and I agree with assessment and plan. Supervised by Larry Ann MD
--- NOTE | 2019-06-30 03:57 | DI.CT.S_ITS ---
PROCEDURE: CT ABDOMEN PELVIS WO CON INDICATIONS: painless gross hematuria on Xarellto TECHNIQUE: Noncontrast 5 mm thick sections acquired from the diaphragms to the symphysis. 5 mm coronal and sagittal reformats were then performed. For radiation dose reduction, the following was used: automated exposure control, adjustment of mA and/or kV according to patient size. COMPARISON: [facility], CT, CT CHEST ABD PEL W CON, 06/13/2019, 10:59. [facility], CT, CT CHEST ABD PEL W CON, 09/18/2018, 11:46. [facility], CT, CT ABDOMEN PELVIS W CON, 03/29/2018, 12:45. [facility], CT, CHEST/ABD/PEL WITH CONTRAST, 07/10/2017, 9:19. [facility], CT, CHEST/ABD/PEL WITH CONTRAST, 05/25/2017, 10:54. [facility], RG, CT KUB, 12/06/2005, 11:55. FINDINGS: Image quality: Diagnostic. ABDOMEN: Lung bases: Lung bases are clear. Heart size is normal. Solid organs: Liver is normal in size. Gallbladder is surgically absent. Pancreas is normal in contours. Spleen is normal in size. No adrenal nodules. Kidneys are normal in size, without hydronephrosis or nephrolithiasis. There is a moderate-sized calculus at the ureteropelvic junction on the left that measures up to approximately 10 mm in diameter, probably not significantly changed, given differences in imaging technique. Associated mild left-sided hydronephrosis is present. Additional smaller left-sided ureteral calculi are seen within the proximal left ureter. These may be unchanged since the prior study, as well. No significant distal hydroureter is evident. Nonobstructing bilateral renal calculi appear to be present. The right kidney is smaller than the left. Perinephric edema may be senescent. Small exophytic hypodense lesions of the kidneys may represent simple renal cysts, but are not well characterized. Peritoneum and bowel: There is a moderate-sized hiatal hernia. The stomach is decompressed. The small bowel loops are nondilated. A moderate amount of residual stool seen within the colon. Extensive colonic diverticulosis is evident without surrounding inflammation to suggest diverticulitis. No free fluid, loculated fluid collection or free air is identified. Soft tissue attenuation within the periumbilical region probably represents scarring from previous surgery. Nodes and vessels: No retroperitoneal or mesenteric adenopathy by size criteria. Aorta and inferior vena cava are normal in caliber. Ectasia and atherosclerosis is noted. There may be a small right renal artery aneurysm peripheral calcifications (image 25, series 2). Bones: No acute fracture or suspicious osseous lesion is evident. PELVIS: Genitourinary: Bladder wall thickness is normal. Miscellaneous: No inguinal hernias or adenopathy. No free fluid or loculated fluid collections identified. Bones: No suspicious bony lesions. No acute fractures. IMPRESSION: 1. Multiple left ureteral calculi may be resulting in the patient's hematuria. There probably is at least partial obstruction at the ureteropelvic junction tip of mild hydronephrosis. This is similar to the exam dated 06/13/19. 2. Nonobstructing bilateral renal calculi. 3. Colonic diverticulosis without diverticulitis. 4. Ectasia and atherosclerosis of the abdominal aorta without patrick aneurysm. 5. Possible constipation. 6. Moderate-sized hiatal hernia. Dictated by: Sundar Bishop M.D. on 06/30/2019 at 9:21 Approved by: Sundar Bishop M.D. on 06/30/2019 at 9:27
[2019-06-30] MEDS: SODIUM CHLORIDE 0.9% 1,000 ML 1000 ML IV (04:46)
[2019-06-30 04:51] VITALS: BP 223/105; PULSE 64; RESP 18; O2SAT 94
[2019-06-30 05:28] VITALS: BP 198/98; PULSE 72; RESP 18; O2SAT 97
--- NOTE | 2019-06-30 05:33 | PC.NURSE ---
provider aware of hypertension and ok'd discharge.
== END 2019-06-30 05:33 | disposition home or self-care (01) ==
PROVIDERS: Emergency Provider Emergency Medicine; PCP Internal Medicine
DX: R31.0 Gross hematuria (principal); N13.2 Hydronephrosis with renal and ureteral calculous obstruction; E11.9 Type 2 diabetes mellitus without complications; I10 Essential (primary) hypertension
CPT/HCPCS: 36415; 74176; 80053; 81001; 85025; 85610; 85730; 96360; 99284

== ENCOUNTER 2019-07-01 13:12 | Observation (INO) | payer MEDICARE, OTHER, SELFPAY ==
[2018-04-17 16:32] VITALS: BMI 31.1
--- NOTE | 2019-07-01 13:27 | ED.GENADULT ---
HPI - General Adult General Chief complaint: Altered Mental Status Stated complaint: Syncope Time Seen by Provider: 07/01/19 13:15 Source: patient, family and EMS Mode of arrival: EMS Limitations: no limitations History of Present Illness HPI narrative: 79-year-old male brought in by EMS after they were called to the patient's house by his . Approximately 1 hour prior to arrival here in the emergency department patient was sitting at his desk on the computer. Patient's states that he started to act very weird. Started act like he was confused. She stated that he was having a hard time saying words. Was not slurring any the words that he was saying. Was saying that he could not find the computer mouse. also states that he was asking very awkward questions. Patient states he does not remember the event. States he does not know why he is here in the emergency department. At the time my evaluation patient's states that she feels like he is back to normal. Related Data Home Medications Medication Instructions Recorded Confirmed atorvastatin [Lipitor] 40 mg PO BEDTIME #0 03/21/17 07/01/19 metformin 500 mg PO BID 01/02/18 07/01/19 citalopram 10 mg tablet 20 mg PO DAILY tab 07/03/18 07/01/19 Respironics Dreamstation BIPAP #1 ea 08/29/18 05/08/19 prednisone 10 mg tablet 10 mg PO DAILY 08/29/18 07/01/19 alpha lipoic acid 600 mg PO DAILY 11/28/18 07/01/19 cyanocobalamin (vitamin B-12) 1,000 mcg PO DAILY 11/28/18 07/01/19 [Vitamin B-12] furosemide 20 mg PO DAILY PRN 01/22/19 07/01/19 losartan 50 mg PO DAILY 01/22/19 07/01/19 carvedilol 25 mg PO BID 05/08/19 07/01/19 minoxidil 10 mg PO DAILY 05/08/19 07/01/19 Previous Rx's Medication Instructions Recorded Xarelto 20 mg PO DAILY #90 tab 02/07/18 tamsulosin [Flomax] 0.4 mg PO DAILY #30 cap 08/01/18 oxycodone-acetaminophen [Percocet] 1 tab PO Q4-6H PRN #10 tab 06/30/19 Allergies Allergy/AdvReac Type Severity Reaction Status Date / Time chlorthalidone Allergy Verified 07/01/19 13:53 hydroxychloroquine Allergy Verified 07/01/19 13:53 [From Plaquenil] niacin [NIACIN] AdvReac Severe Hypotension Verified 07/01/19 13:53 amlodipine [AMLODIPINE] AdvReac Unknown Verified 07/01/19 13:53 gemfibrozil [GEMFIBROZIL] AdvReac Unknown Verified 07/01/19 13:53 hydrochlorothiazide AdvReac Unknown Verified 07/01/19 13:53 [HYDROCHLOROTHIAZIDE] lisinopril [LISINOPRIL] AdvReac Unknown Verified 07/01/19 13:53 Review of Systems Constitutional Constitutional: Denies chills, Denies fever(s), Denies headache(s) and Denies weakness Eyes Eyes: Denies change in vision ENT Ears, Nose, Mouth, and Throat: Denies vertigo, Denies dizziness, Denies headache(s) and Denies disequilibrium Cardiovascular Cardiovascular: Denies chest pain, Denies palpitations and Denies dyspnea Respiratory Respiratory: Denies cough and Denies dyspnea Gastrointestinal Gastrointestinal: Denies abdominal pain, Denies nausea and Denies vomiting Musculoskeletal Musculoskeletal: Denies myalgias and Denies arthralgias Integumentary/Breasts Skin/Breast: Denies lesions and Denies rash Neurologic Neurologic: Denies abnormal movements, Reports abnormal speech, Reports behavioral changes, Reports confusion, Denies vertigo, Denies dizziness, Denies headache(s), Denies lack of coordination, Denies focal weakness, Reports memory loss, Denies other visual disturbances, Denies disequilibrium and Denies weakness Psychiatric Psychiatric: Reports behavioral changes, Reports confusion and Reports memory loss Endocrine Endocrine: Denies palpitations Hematologic/Lymphatic Hematologic/Lymphatic: Denies easy bleeding and Denies easy bruising Patient History Medical History Coronary artery disease (Chronic) Depression (Chronic) Diabetes type 2, controlled (Chronic) History of nephrolithotomy with removal of calculi (Resolved) History of pulmonary embolism (Resolved) Hyperlipidemia (Chronic) Hypertension (Chronic) Kidney stone (Resolved) Leukopenia (Chronic) Metastatic malignant neoplasm to prostate (Chronic) Obstructive sleep apnea of adult (Chronic) Prostate cancer metastatic to bone (Chronic) Renal insufficiency (Chronic) Rheumatoid arthritis (Chronic) Small cell lung cancer (Chronic) Thrombocytopenia (Chronic) Thrombophlebitis of arm, left (Resolved) UTI (urinary tract infection) (Inactive) Social History marital status: unmarried,living together details: partner Vanessa Alonso, lives in [place] household members: significant other lives independently: No caregiver/support person: Yes Smoking Status: Current every day smoker alcohol intake: never Smoking Status: Current every day smoker Substance Use Type: does not use Exam Initial Vital Signs Initial Vital Signs: Vital Signs Temperature 98.2 F 07/01/19 13:31 Pulse Rate 65 07/01/19 13:31 Respiratory Rate 16 07/01/19 13:31 Blood Pressure 115/65 07/01/19 13:31 Pulse Oximetry 93 07/01/19 13:31 Const General: cooperative, comfortable and well developed Limitations: mental status not altered HENMT Head: normal to inspection and normocephalic Eyes Pupils: PERRL EOM: EOM intact bilaterally Resp Effort & Inspection: normal respiratory effort Auscultation: clear to auscultation bilaterally Cardio Rate: regular rate Rhythm: regular rhythm GI Inspection: non-distended Palpation: soft and No firm Skin Lesions: no lesions Rashes: no rashes Neuro General: alert, awake and oriented x3 Cranial Nerves: CN's II-XI intact bilaterally Cognition: normal cognition Speech: speech normal Motor: muscle tone normal throughout Sensory Exam: no sensory deficits noted Extrem General: normal to inspection and capillary refill normal Psych Appearance: grossly normal and well kempt Scores GCS Stacey coma scale eye opening: Spontaneous Stacey coma scale motor response: Obey commands Course Orders Ordered: ED Orders 07/01/19 13:28 CT head/brain wo con Stat EKG-12 Lead Stat 07/01/19 13:35 Basic Metabolic Panel Stat Complete Blood Count AUTO DIFF Stat Ethanol (ETOH) Stat Partial Thromboplastin Time Stat Prothrombin Time INR Stat Vital Signs Vital signs: Vital Signs - 8 hr 07/01/19 13:31 Temperature 98.2 F Pulse Rate 65 Respiratory Rate 16 Blood Pressure 115/65 Pulse Oximetry 93 Medical Decision Making Lab Data Lab results reviewed: Yes I reviewed the patient's lab results. Result diagrams: 07/01/19 13:35 07/01/19 13:35 Labs: Lab Results 07/01/19 07/01/19 07/01/19 Range/Units 13:35 13:35 13:35 WBC 7.4 (4.5-11.0) X10^3/uL RBC 4.02 L (4.5-5.9) X10^6/uL Hgb 13.1 L (13.5-17.5) g/dL Hct 38.1 L (41-53) % MCV 94.8 (80-100) fL MCH 32.7 (26-34) PG MCHC 34.5 (30-36) % RDW 13.7 (11.6-14.8) % Plt Count 77 L (150-400) X10^3/uL Neut % (Auto) 74.5 (50-75) % Lymph % (Auto) 14.9 L (25-40) % [place] % (Auto) 8.0 (3-14) % Eos % (Auto) 2.2 (2-4) % Baso % (Auto) 0.4 (0-2) % Neut # (Auto) 5500 (4417-4219) /uL Lymph # (Auto) 1100 (7046-1651) /uL [place] # (Auto) 600 (0-900) /uL Eos # (Auto) 200 (0-450) /uL Baso # (Auto) 0 (0-100) /uL PT 23.9 H D (10.1-12.7) SECONDS INR 2.1 H (0.9-1.3) APTT 45 H D (26.4-36.2) SECONDS Sodium 139 (137-145) mmol/L Potassium 3.9 (3.4-5.1) mmol/L Chloride 108 H (98-107) mmol/L Carbon Dioxide 26 (22-32) mmol/L BUN 21 H (9-20) mg/dL Creatinine 1.08 (0.66-1.25) mg/dL Estimated GFR > 60.0 (>60) mL/min BUN/Creatinine Ratio 19.4 (6-22) Glucose 154 H (80-110) mg/dL Calcium 9.4 (8.4-10.2) mg/dL Ethyl Alcohol < 10 ( - 10) mg/dL Imaging Data CT scan - head: Radiologist's Impression: [address] [address] [address] Scan Report Signed Patient: Nahun Cintron EMR#: [id number] : 1940Acct:[id number] Age/Sex: 79 / MDate of Service: 07/01/19 Loc: ED Accession Number: [id number] Procedure: CT head/brain wo con Ordering Provider: Giuseppe Brownlee D.O. PROCEDURE: CT HEAD/BRAIN WO CON INDICATIONS: confusion concern for TIA TECHNIQUE: Noncontrast 4.5 mm thick angled axial sections acquired from the foramen magnum to the vertex, with coronal and sagittal reformats. For radiation dose reduction, the following was used: automated exposure control, adjustment of mA and/or kV according to patient size. COMPARISON: [facility], CT, CT HEAD/BRAIN WO CON, 04/17/2018, 13:09. FINDINGS: Image quality: Excellent. CSF spaces: Basal cisterns are patent. No extra-axial fluid collections. The ventricles are symmetric in size and shape. Brain: No intracranial bleeds or masses. There is cerebral volume loss for age, with resultant ventricular and sulcal prominence. There are mild to moderate periventricular and deep white matter chronic small vessel ischemic changes. Small bilateral old lacunar infarctions. There is intracranial internal carotid artery atherosclerosis. Skull and face: Calvarium and visualized facial bones appear intact, without suspicious lesions. Sinuses: Visualized sinuses and mastoids are clear. IMPRESSION: 1. Age related volume loss and mild to moderate small vessel ischemic change. 2. Old tiny lacunar infarctions. 3. No evidence acute stroke, hemorrhage, or mass. Dictated by: Patrick Fortune M.D. on 07/01/2019 at 13:45 Approved by: Patrick Fortune M.D. on 07/01/2019 at 13:52 ECG Data Attestation: I personally reviewed and interpreted this ECG as follows: Prior ECG tracings: not available for review Interpretation: Sinus rhythm Ventricular rate is [address] T wave changes MDM Narrative Medical decision making narrative: Patient with nonfocal neuro exam. Head CT shows no acute changes. EKG is unremarkable. Is currently on anticoagulation secondary to a distant history of pulmonary embolism. Symptoms this morning are concerning for TIA. Patient not a tPA candidate given the fact that his symptoms seemed to have resolved and his states that he is back to his normal self. He does seem to have memory loss regarding the presenting symptoms. I did discuss the case with Dr. Altamirano with Internal Medicine who will admit for further evaluation and treatment. Discussed the admission with the patient and . They both expressed understanding and agreement. Discharge Plan Departure Patient Disposition: Admitted as Observation Clinical Impression: Brain TIA Admit Date/Time: 07/01/19 14:35 Admit Provider: Christel Altamirano
[2019-07-01 13:31] VITALS: BP 115/65; PULSE 65; RESP 16; TEMP 36.8; O2SAT 93; BMI 34.8
[2019-07-01 13:38] LABS: Add Manual Diff / Slide Review NO; Basophils Absolute Auto 0 /uL (0-100); Basophils Percent Auto 0.4 % (0-2); Eosinophils Absolute Auto 200 /uL (0-450); Eosinophils Percent Auto 2.2 % (2-4); Hematocrit 38.1 % (41-53); Hemoglobin 13.1 g/dL (13.5-17.5); Lymphocytes Absolute Auto 1100 /uL (1100-4500); Lymphocytes Percent Auto 14.9 % (25-40); Mean Corpuscular HGB Conc 34.5 % (30-36); Mean Corpuscular Hemoglobin 32.7 PG (26-34); Mean Corpuscular Volume 94.8 fL (80-100); Monocytes Absolute Auto 600 /uL (0-900); Neutrophils Absolute Auto 5500 /uL (1500-7000); Neutrophils Percent Auto 74.5 % (50-75); Platelet Count 77 X10^3/uL (150-400); Red Blood Cell Count 4.02 X10^6/uL (4.5-5.9); Red Cell Distribution Width 13.7 % (11.6-14.8); White Blood Cell Count 7.4 X10^3/uL (4.5-11.0)
[2019-07-01 13:40] LABS: INR 2.1 (0.9-1.3); Prothrombin Time 23.9 SECONDS (10.1-12.7)
[2019-07-01 13:42] LABS: PTT Partial Thromboplastin Tim 45 SECONDS (26.4-36.2)
[2019-07-01 13:48] LABS: BUN Creatinine Ratio 19.4 (6-22); Blood Urea Nitrogen 21 mg/dL (9-20); Calcium 9.4 mg/dL (8.4-10.2); Carbon Dioxide 26 mmol/L (22-32); Chloride 108 mmol/L (98-107); Estimated Glomerular Filt Rate > 60.0 mL/min (>60); Ethanol (ETOH) < 10 mg/dL; Glucose 154 mg/dL (80-110); HEMOLYSIS < 15 (0-50); Potassium 3.9 mmol/L (3.4-5.1); Sodium 139 mmol/L (137-145)
--- NOTE | 2019-07-01 14:10 | PC.NURSE ---
Patient resting quietly in stretcher with at bedside. VSS. BP 136/65, HR 68 with normal sinus rhythm. Patient alert to self, month and name of president but still cannot remember the events of this morning.
[2019-07-01 15:07] LABS: Appearance Urine UA CLOUDY; Bilirubin Urine UA 1+ (NEGATIVE); Color Urine UA BROWN; Glucose Urine UA NEGATIVE (Negative); Ketones Urine UA TRACE (NEGATIVE); Leukocyte Esterase Urine UA TRACE (NEGATIVE); Nitrite Urine UA NEGATIVE (Negative); Occult Blood Urine UA 3+ (Negative); Protein Urine UA 2+ (Negative); Urobilinogen Urine UA 0.2 E.U./dL (0.2); pH Urine UA 6.5 (4.5-8.0)
[2019-07-01 15:09] LABS: Ictotest Urine Positive (Negative)
[2019-07-01 15:12] LABS: RBC Urine >100/HPF (0-5/HPF); Squamous Epithelial Cell Urine 1-5 /HPF (0-5/HPF); WBC Urine 5-10/HPF (0-5/HPF)
[2019-07-01 15:13] LABS: Amorphous Sediment Urine 1+; Bacteria Urine Few (2-10); Culture Indicated Urine Specimen Cultured; Mucus Urine 1+ (Negative)
[2019-07-01 15:25] VITALS: BP 146/65; PULSE 74; RESP 12; TEMP 36.9; O2SAT 95
[2019-07-01 15:27] LABS: Creatine Kinase 51 U/L (55-170)
[2019-07-01 16:05] VITALS: BP 143/79; PULSE 77; RESP 18; TEMP 36.7; O2SAT 94
[2019-07-01 16:14] VITALS: BMI 34.8
--- NOTE | 2019-07-01 16:56 | PC.NURSE ---
Addendum entered by Mikaela Leonardo R.N. 07/01/19 21:12: Pt denies any discomfort at this time. Tele shows NSR per ICU staff. Pt taking metformin, HS CBG = 140, no coverage needed Pt appears to becoming more oriented, Call light w/in reach, Bed alarm on for pt safety. Continue w/plan of care. Original Note: Pt arrived to room from ED @ 1610. Alert/oriented to name, birthday, month at this time. [employer], need to speak loudly. HL right hand intact. Using the urinal w/o incidence. Voiding dark tea colored urine. Call light w/in reach, bed alarm on for pt safety.
[2019-07-01 17:38] VITALS: O2SAT 95
--- NOTE | 2019-07-01 19:47 | PM.HP.1 ---
History of Present Illness History of Present Illness Date Patient Seen: 07/01/19 Time Patient Seen: 19:48 Chief complaint: Syncope Narrative: This is a 79-year-old male who was just in the emergency department yesterday with hematuria, nephrolithiasis and mild hydronephrosis and then this morning at home became confused in a persisting manner so was brought to the hospital where his mentation cleared and he has no recall of his confusion from this morning. He has no history of stroke or prior TIAs but has many, many risk factors including diabetes, heart disease, hypertension and hyperlipidemia. He also has a history of PE, treated with Coumadin and a history of small-cell lung cancer and metastatic prostate cancer. He has had no prior neurologic symptoms in this previous week. He did have hematuria yesterday leading to the CT scan diagnosis of a new kidney stone with hydronephrosis. He has had no lateralizing weakness, trouble walking, falls or known head trauma. 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 Earlier this month he had both a brain MRI and a chest CT showing no evidence of lung cancer or metastasis. He does have shoulder mets from the prostate cancer however. Patient History Medical History Coronary artery disease (Chronic) Depression (Chronic) Diabetes type 2, controlled (Chronic) History of nephrolithotomy with removal of calculi (Resolved) History of pulmonary embolism (Resolved) Hyperlipidemia (Chronic) Hypertension (Chronic) Kidney stone (Resolved) Leukopenia (Chronic) Metastatic malignant neoplasm to prostate (Chronic) Obstructive sleep apnea of adult (Chronic) Prostate cancer metastatic to bone (Chronic) Renal insufficiency (Chronic) Rheumatoid arthritis (Chronic) Small cell lung cancer (Chronic) Thrombocytopenia (Chronic) Thrombophlebitis of arm, left (Resolved) UTI (urinary tract infection) (Inactive) Surgical History H/O coronary angioplasty (Resolved) H/O umbilical hernia repair (Acute) History of appendectomy (Resolved) History of cholecystectomy (Resolved) Family & Social History Family History Father No problems noted. Mother No problems noted. Brother Hx of CABG Diabetes mellitus Coronary artery disease Social History: household members significant other lives independently No caregiver/support person Yes Safety & Behavioral: Feels Safe in Current Yes Environment Been Physically Hurt or No Threatened By a Person Tobacco & Substance use: Tobacco type cigarettes Smoking Status Current every day smoker alcohol intake never Substance Use Type does not use Meds Home Medications and Allergies Home Medications Medication Instructions Recorded Confirmed Type atorvastatin [Lipitor] 40 mg PO BEDTIME #0 03/21/17 07/01/19 History metformin 500 mg PO BID 01/02/18 07/01/19 History Xarelto 20 mg PO DAILY #90 tab 02/07/18 07/01/19 Rx citalopram 10 mg tablet 20 mg PO DAILY tab 07/03/18 07/01/19 History tamsulosin [Flomax] 0.4 mg PO DAILY #30 cap 08/01/18 07/01/19 Rx Respironics Dreamstation BIPAP #1 ea 08/29/18 05/08/19 History prednisone 10 mg tablet 10 mg PO DAILY 08/29/18 07/01/19 History alpha lipoic acid 600 mg PO DAILY 11/28/18 07/01/19 History cyanocobalamin (vitamin B-12) 1,000 mcg PO DAILY 11/28/18 07/01/19 History [Vitamin B-12] furosemide 20 mg PO DAILY PRN 01/22/19 07/01/19 History losartan 50 mg PO DAILY 01/22/19 07/01/19 History carvedilol 25 mg PO BID 05/08/19 07/01/19 History minoxidil 10 mg PO DAILY 05/08/19 07/01/19 History oxycodone-acetaminophen [Percocet] 1 tab PO Q4-6H PRN #10 tab 06/30/19 Rx Allergies Allergy/AdvReac Type Severity Reaction Status Date / Time chlorthalidone Allergy Verified 07/01/19 13:53 hydroxychloroquine Allergy Verified 07/01/19 13:53 [From Plaquenil] niacin [NIACIN] AdvReac Severe Hypotension Verified 07/01/19 13:53 amlodipine [AMLODIPINE] AdvReac Unknown Verified 07/01/19 13:53 gemfibrozil [GEMFIBROZIL] AdvReac Unknown Verified 07/01/19 13:53 hydrochlorothiazide AdvReac Unknown Verified 07/01/19 13:53 [HYDROCHLOROTHIAZIDE] lisinopril [LISINOPRIL] AdvReac Unknown Verified 07/01/19 13:53 Review of Systems Review of Systems Narrative: Positive for confusion and hematuria Negative for fevers, chills, sweats, nausea, vomiting, diarrhea, abdominal pain, chest pain, coughing, seizures, rash, headaches, edema, new allergies, trouble walking. ROS: Yes All systems reviewed with the patient and are negative except as otherwise documented Exam Vital Signs (past 8 hours): - 07/01/19 13:31 07/01/19 15:25 07/01/19 16:05 Temperature 98.2 F 98.4 F 98.0 F Pulse Rate 65 74 77 Respiratory Rate 16 12 18 Blood Pressure 115/65 143/79 H Blood Pressure [Left Arm] 146/65 H Pulse Oximetry 93 95 94 07/01/19 17:38 Temperature Pulse Rate Respiratory Rate Blood Pressure Blood Pressure [Left Arm] Pulse Oximetry 95 Oxygen Delivery Method Room Air Oxygen Flow Rate 0 Narrative Exam Narrative: Alert and oriented X 3. No apparent distress. Pupils are equally round and reactive to light and accommodation. Extraocular muscles are intact. Sclerae are pink and nonicteric. No lymph nodes are felt head, neck, supraclavicular area. There is no thyromegaly. Heart is regular rate and rhythm without murmur. JVD is less than 6 cm. No carotid bruits are heard. Lungs are clear to auscultation bilaterally. Abdomen is soft, nontender, bowel sounds positive, no organomegaly. Extremities have no ankle edema. Skin has no rash or jaundice. Neuro exam. Cranial nerves 2-12 tested intact. There is no tremor. Motor function is 5/5 throughout. 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 He is fully oriented and at the same time unable to recall the confusing events this morning. Gait and balance are not tested. Babinski's are downgoing bilaterally Objective Labs Result Diagrams: 07/01/19 13:35 07/01/19 13:35 Labs: Laboratory Results - last 24 hr 07/01/19 07/01/19 07/01/19 13:35 13:35 13:35 WBC 7.4 RBC 4.02 L Hgb 13.1 L Hct 38.1 L MCV 94.8 MCH 32.7 MCHC 34.5 RDW 13.7 Plt Count 77 L Neut % (Auto) 74.5 Lymph % (Auto) 14.9 L [place] % (Auto) 8.0 Eos % (Auto) 2.2 Baso % (Auto) 0.4 Neut # (Auto) 5500 Lymph # (Auto) 1100 [place] # (Auto) 600 Eos # (Auto) 200 Baso # (Auto) 0 PT 23.9 H D INR 2.1 H APTT 45 H D Sodium 139 Potassium 3.9 Chloride 108 H Carbon Dioxide 26 BUN 21 H Creatinine 1.08 Estimated GFR > 60.0 BUN/Creatinine Ratio 19.4 Glucose 154 H Calcium 9.4 Total Creatine Kinase CK-MB (CK-2) CK-MB (CK-2) Rel Index Urine Color Urine Appearance Urine pH Ur Specific [place] Urine Protein Urine Glucose (UA) Urine Ketones Urine Occult Blood Urine Nitrate Urine Bilirubin Ur Bilirubin Confirm Urine Urobilinogen Ur Leukocyte Esterase Urine RBC Urine WBC Ur Squamous Epith Cells Amorphous Sediment Urine Bacteria Urine Mucus Ur Culture Indicated? Ethyl Alcohol < 10 07/01/19 07/01/19 13:35 14:45 WBC RBC Hgb Hct MCV MCH MCHC RDW Plt Count Neut % (Auto) Lymph % (Auto) [place] % (Auto) Eos % (Auto) Baso % (Auto) Neut # (Auto) Lymph # (Auto) [place] # (Auto) Eos # (Auto) Baso # (Auto) PT INR APTT Sodium Potassium Chloride Carbon Dioxide BUN Creatinine Estimated GFR BUN/Creatinine Ratio Glucose Calcium Total Creatine Kinase 51 L CK-MB (CK-2) TNP CK-MB (CK-2) Rel Index TNP Urine Color Brown Urine Appearance Cloudy Urine pH 6.5 Ur Specific [place] 1.020 Urine Protein 2+ H Urine Glucose (UA) Negative Urine Ketones Trace H Urine Occult Blood 3+ H Urine Nitrate Negative Urine Bilirubin 1+ H Ur Bilirubin Confirm Positive H Urine Urobilinogen 0.2 Ur Leukocyte Esterase Trace H Urine RBC >100/hpf Urine WBC 5-10/hpf H Ur Squamous Epith Cells 1-5 /hpf Amorphous Sediment 1+ Urine Bacteria Few (2-10) H Urine Mucus 1+ H Ur Culture Indicated? Specimen cultured Ethyl Alcohol Assessment & Plan Assessment & Plan narrative: TIA, acute, present on admission - Check Brain MRI, Carotid US - Check lipids - Continue risk factor reduction with BP control, Atorvastatin, BS control, etc. Nephrolithiasis, acute, present on admission - Urine culture pending - outpatient Urology appointment with Dr. Keenan planned Pulmonary Embolus, chronic - Continue Coumadin - INR 2.1 on admission 06/30 Type 2 Diabetes Mellitus, chronic, present on admission - Glucose 154 on admission, follow - Check A1C - Continue Metformin Hypertension, chronic, present on admission - Continue Carvedilol, Losartan and Minoxidil. Hyperlipidemia, chronic, present on admission - Continue Atorvastatin - Recheck Lipids 06/30 Coronary Artery Disease, chronic, present on admission - Continue Metoprolol, Atorvastatin Metastatic Prostate Cancer, chronic, present on admission - Continue Tamsulosin Rheumatoid Arthritis, chronic, present on admission - Continue Prednisone 10 mg QD Small Cell Lung Cancer, chronic, present on admission - Current status unclear Depression, chronic, present on admission - Continue Citalopram Thrombocytopenia - Platelets 77 admission, recent range 71 - 82.
[2019-07-01 20:25] VITALS: BP 124/80; BP 143/79; PULSE 83; RESP 18; TEMP 36.8; O2SAT 90
[2019-07-01] MEDS: ATORVASTATIN 20 MG TABLET 40 MG PO (20:25)
[2019-07-01] MEDS: carvediloL 25 MG TABLET PO (20:25)
[2019-07-01] MEDS: METFORMIN HCL 500 MG TABLET PO (20:26)
[2019-07-01 23:00] VITALS: BP 133/63; PULSE 75; RESP 18; TEMP 37.1; O2SAT 92
[2019-07-02] VITALS (7 sets, daily range): BP systolic 125–142; BP diastolic 57–80; PULSE 68–72; RESP 16–17; TEMP 36.8–36.9; O2SAT 89–96
[2019-07-02 06:43] LABS: Cholesterol 122 mg/dL (140-199); HDL Cholesterol 28 mg/dL (40-60); LDL Cholesterol Calculated 44 mg/dL (<100); Triglycerides 250 mg/dL (35-150)
[2019-07-02 06:49] LABS: Hemoglobin A1C% w Est Avg Glu 5.6 % (4.0-6.0)
[2019-07-02] MEDS: minoxidiL 10 MG TABLET PO (08:26)
[2019-07-02] MEDS: SODIUM CHLORIDE 0.9% FLUSH 10 ML IV (08:26)
[2019-07-02] MEDS: LOSARTAN 50 MG TABLET PO (08:38)
[2019-07-02] MEDS: RIVAROXABAN 10 MG TABLET 20 MG PO (08:39)
[2019-07-02] MEDS: CITALOPRAM 20 MG TABLET PO (08:39)
[2019-07-02] MEDS: CYANOCOBALAMIN (VITAMIN B-12) 500 MCG TABLET 1000 MCG PO (08:39)
[2019-07-02] MEDS: carvediloL 25 MG TABLET PO (08:39)
[2019-07-02] MEDS: TAMSULOSIN 0.4 MG CAPSULE PO (08:39)
[2019-07-02] MEDS: predniSONE 10 MG TABLET PO (08:39)
--- NOTE | 2019-07-02 08:49 | CM.DANOTE ---
DCP/Assessment: Reviewed chart. Patient is a 79yr old male admitted under OBS status with TIA like symptoms. PCP is Dr. Cameron. Primary payor is 1)Medicare 2)[employer]. Met with patient explained CM/SW role. Patient asleep at time of visit but easy to wake. Patient reports that he hopes to d/c home today. Patient resides with significant other/Vanessa in [place]. Patient denies any d/c planning needs at this time. Patient reports that he no longer drives, uses cane at baseline for ambulation. Patient with h/o CA and treatment at [facility]. Left vm with MONIKA/Eugenie indicating patient admitted on 07-01-19 and expected to d/c later today. P: Home when stable. CM team to continue to follow. Patient MCGRATH and reports that he cannot find one of his hearing aides. RN/Yovany notified. MONIKA Dave Discharge Planning/Care Management Advanced directive, confirm from FAMILY Start: 07/01/19 16:16 Freq: Q24H Status: Active Protocol: Document 07/01/19 16:25 KMD (Rec: 07/01/19 16:25 KMD [id number]) Advance Directive, confirm on record Time 16:25 Person contacted Patient Copy received No CM Discharge Assessment Start: 07/02/19 08:37 Freq: Status: Active Protocol: Document 07/02/19 08:41 KJS (Rec: 07/02/19 08:49 KJS [id number]) Discharge Planning Assessment Assigned Disc Pad Knockout Worker MONIKA Dave Contact Information Vanessa Chrison (friend/ significant other [phone] Advance Directives? Yes Advance Directives on File No History Provided By Patient,Medical Record Prior Living Arrangements Apartment/Condo Household Members significant other Type of transporation used prior to Relies on Others admit Independent with ADL's Yes: reports only uses cane for ambulation Is patient alert and oriented? Yes: sleep at time of visit Caregiver for Another No Comment has 4ww from [employer], patient reportedly uses cane at baseline. Comment Patient active at [facility], notified Eugenie FRANK of patient's hospitalization and expected d/c today. Barriers to Discharge No Comment None indicated at this time. Discharge Plan Home Transportation Arrangement Significant other Whiteboard Updated in Patient Room with Yes name and ext. # of Disc Pad Knockout Worker Review Status In Process Next Review Type Continued Stay Review
--- NOTE | 2019-07-02 09:33 | DI.MRI.S_ITS ---
PROCEDURE: MR STROKE Pre- and post-contrast brain MRI, non-contrast brain MR angiogram, pre- and postcontrast neck MR angiogram INDICATIONS: Expressive aphasia, confusion, TIA TECHNIQUE: Brain: Noncontrast axial T1 spin echo, axial T2 fast spin echo, sagittal and axial FLAIR, coronal T2 fast spin echo, axial gradient echo, axial diffusion and ADC through the brain. After the administration of contrast, axial 3D VIBE of the cranial vasculature and brain. Brain MRA: Non-contrast 3-D time of flight MR angiogram, with multiple blpxbrw-lxjkeyrad-ozxedqrchl (MIP) reformats performed. Neck MRA: Axial and sagittal TruFISP through the neck. Coronal dynamic MR angiogram during administration of contrast in the arterial and venous phases, with 3-dimenstional stvzbsv-eolhxkpxm-uujuqfqysu (MIP) reformats constructed from subtraction images. COMPARISON: [facility], MR, MR BRAIN (IAC) WWO CON, 06/20/2019, 9:50. [facility], CT, CT HEAD/BRAIN WO CON, 07/01/2019, 13:32. FINDINGS: Image quality: Excellent. BRAIN: CSF spaces: Ventricles are normal in size and shape. Basal cisterns are patent. No extra-axial fluid collections. Brain: No intracranial bleeds or mass effects. Ngo-white matter interface is normal. Diffusion weighted images show no acute ischemic insults. There is moderate, diffuse cerebral volume loss. There are moderate periventricular and subcortical white matter chronic microvascular ischemic changes. Brainstem appears normal. Normal intravascular flow voids are present. No abnormal intracranial enhancement. Skull and face: Calvarial marrow signal is normal. Orbits appear normal. Sinuses: Large mucous retention cyst versus polyp in the right maxillary sinus. The mastoids are clear. BRAIN MR ANGIOGRAM: Anterior circulation: Intracranial internal carotid arteries are normal in size and enhancement. The flow within the paired anterior cerebral arteries is normal and symmetric. The flow within the middle cerebral arteries is normal and symmetric. The anterior communicating artery is seen. No stenoses, occlusions, or aneurysms. Posterior circulation: Absence of flow within the intracranial segment of the left vertebral artery. Normal flow signal noted in the right vertebral artery and the basilar artery. The flow within the posterior cerebral arteries is normal and symmetric. The right posterior cerebral artery has a origin which is a congenital anatomic variant. No stenoses or aneurysms. NECK MR ANGIOGRAM: Carotids: Great vessels demonstrate a conventional anatomy as they arise from the aortic arch. The origins of the common carotid arteries appear patent. The calibers and courses of both common carotid arteries are normal. Mild metastatic irregularity noted in the origins of the internal carotid arteries bilaterally which causes less than 50% stenosis of the vessels. Posterior circulation: Mild atherosclerotic irregularity noted in the origin and proximal right vertebral artery. 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 There is diminished, reconstitution of flow in the V4 segment of the left vertebral artery likely due to antegrade flow from the right vertebral artery/basilar artery. Normal flow is noted in the basilar artery.. Miscellaneous: Subclavian arteries appear patent. Pre-contrast images through the neck show no soft tissue abnormalities. IMPRESSION: BRAIN MRI: 1. No acute intracranial disease process. 2. No areas of acute or chronic infarction. 3. Moderate diffuse cerebral volume loss. 4. Moderate periventricular and subcortical white matter chronic microvascular ischemic change. 5. No abnormal intracranial mass or suspicious postcontrast enhancement. 6. No intracranial hemorrhage. BRAIN MR ANGIOGRAM: 1. No large vessel occlusion, hemodynamically significant vascular stenosis, vascular dissection or aneurysm involving the anterior screw circulation. 2. Occlusion versus very slow flow into the intracranial (V4) segment of the left vertebral artery. 3. No occlusion, hemodynamically significant stenosis or dissection involving the intracranial (V4) segment of the right vertebral artery. NECK MR ANGIOGRAM: 1. Less than 50% stenosis of the origins of the internal carotid arteries. 2. Mild atherosclerotic irregularity involving the origin and proximal right vertebral artery. 3. Left vertebral artery is occluded at its origin. Dictated by: Yenny Burgess MD, PhD on 07/02/2019 at 11:47 Approved by: Yenny Burgess MD, PhD on 07/02/2019 at 11:58
--- NOTE | 2019-07-02 10:21 | PC.NURSE ---
Addendum entered by Vicky Orellana R.N. 07/02/19 14:27: Dr Altamirano did not feel she should order KUB since it's not relative to admitting diagnosis. This freelance writer spoke w/ Dr Bravo again, informed of the same. This freelance writer took phone order for KUB x-ray from Dr Bravo. X-ray has been completed and urology office should be calling patient tomorrow to re-schedule his appointment. Addendum entered by Vicky Orellana R.N. 07/02/19 13:18: Received call from Dr Bravo (urology). Apparently patient had an appt scheduled with him this afternoon. This freelance writer reported patient is not complaining of any flank pain (or other pain), and no issues with urination other than urine being slightly pink-tinged. Per Dr Bravo pink urine just comes with the territory. Dr Bravo asked if perhaps Dr Altamirano could order KUB to be done as outpatient and then patient can re-schedule with Lawrence after that test has been done. Plan to talk w/ Dr Altamirano when she makes rounds. Addendum entered by Vicky Orellana R.N. 07/02/19 13:10: ANALYTICS MANAGER assisted to bathroom and back into bed. Patient did not call for help, so set off his bed alarm. He's getting frustrated stating when am I ever going to get out of here?!). This freelance writer explained that the doctor should be seeing him soon and asked for his patience in waiting. Patient verbalized understanding. Light within reach, bed alarm on. Addendum entered by Vicky Orellana R.N. 07/02/19 11:48: Back from MRI approx 1115, assisted back to bed and tele replaced. Patient is alert. Oriented to self/place/month/year. Does not remember why he's in the hospital or what brought him here. Seems to have issues with recall/forgetfulness. Did not recall talking on phone with his within 30 minutes of having spoken with her. Speech clear, affect a bit flat. NIH score 0. Lungs CTA. HRR. Able to make needs known. Resting in bed now with eyes closed, respirations regular and unlabored. Call light and belongings within reach, bed alarm on. Original Note: Has been seen by MUSIC AGENT, PT and OT this morning. Taken off floor at this time for MRI via wheelchair.
--- NOTE | 2019-07-02 10:23 | OT.IP.EVAL ---
Past Medical History (Last Reviewed 07/01/19 @ 21:03 by Krista Mc MD) Coronary artery disease (Chronic) Depression (Chronic) Diabetes type 2, controlled (Chronic) History of nephrolithotomy with removal of calculi (Resolved) History of pulmonary embolism (Resolved) Hyperlipidemia (Chronic) Hypertension (Chronic) Kidney stone (Resolved) Leukopenia (Chronic) Metastatic malignant neoplasm to prostate (Chronic) Obstructive sleep apnea of adult (Chronic) Prostate cancer metastatic to bone (Chronic) Renal insufficiency (Chronic) Rheumatoid arthritis (Chronic) Small cell lung cancer (Chronic) Thrombocytopenia (Chronic) Thrombophlebitis of arm, left (Resolved) UTI (urinary tract infection) (Inactive) Surgical History (Last Reviewed 07/01/19 @ 21:03 by Krista Mc MD) H/O coronary angioplasty (Resolved) H/O umbilical hernia repair (Acute) History of appendectomy (Resolved) History of cholecystectomy (Resolved) Occupational Therapy Inpatient Evaluation/Re-Eval M1 PT/OT-IP Prior Functional Status Start: 07/02/19 11:34 Freq: NEEDED Status: Active Protocol: Document 07/02/19 11:34 [facility] (Rec: 07/02/19 11:56 [facility] [id number]) Medical Review Prior Functional Status Medical History Reviewed Yes Communication Independent Mobility and Gait Per pt's significant other, Vanessa, states pt able to walk 500 ft at [facility] two weeks ago, however now has decreased to 30ft at a time due to progressively gotten weaker. Activities of Daily Living and IADL's Pt needing assist for socks/ shoes and SBA for showering after assist to step into the shower and use of grab bar. Vanessa states she is able to provide assist to pt as needed . Social History Household Members significant other Living Arrangements Apartment/Condo Number of Stairs To Enter/Railing? 16 steps with bilateral rails. Vanessa states pt uses both rail while walking up the steps, at times pt will try to use his cane and one rail, but Vanessa encourages him to use both rails as he is safer that way. Home Environment Standard Height Toilet,Tub/ Shower Home Equipment Straight Cane,Grab Bars In Shower M2 OT-IP Current Condition Start: 07/02/19 11:34 Freq: Status: Active Protocol: Document 07/02/19 11:34 [facility] (Rec: 07/02/19 11:56 [facility] [id number]) Occupational Therapy Current Condition Current Condition Evaluation Date 07/02/19 Treatment Diagnosis TIA,confusion Diagnosis Onset Date 07/01/19 Weight Bearing Status Weight Bearing Status Weight Bear as Tolerated M3 OT- IP Subjective and Pain Start: 07/02/19 11:34 Freq: Status: Active Protocol: Document 07/02/19 11:34 [facility] (Rec: 07/02/19 11:56 [facility] [id number]) OT- Subjective Occupational Therapy Visit Type Type Initial Evaluation Visit Start Time 09:47 Visit Stop Time 10:23 Total Visit Minutes 36 Occupational Therapy Visit Comments Patient Comments Pt agreeable to get up for OT/ PT eval. LOGISTICS INTERN just completed her LOGISTICS INTERN eval and states that pt was 1830 on the SLUMS. Patient/Caregiver Goals To go home. OT Pain Assessment Pain When Pain Assessed At Rest Pain Present Pain Present Denied Pain M4 OT- IP ADL's Start: 07/02/19 11:34 Freq: Status: Active Protocol: Document 07/02/19 11:34 [facility] (Rec: 07/02/19 11:56 [facility] [id number]) OT IIX-Tbzt-Colimwq Comments OT Self-Feeding Comments NOt at meal time, able to drink from water cup independently. OT ADL-Grooming Comments OT Grooming Comments Pt able to wash his hands at the sink with SBA. OT ADL-Dressing General Eval Lower Body Dressing Ability Maximum Assistance Areas Needing Assistance Socks,Shoes Comments OT Dressing Comments Pt needing assist for socks and shoes, per pt Vanessa assists at home for this. OT ADL-Toileting General Evaluation Toileting Ability Standby Assistance Comments OT Toileting Comments Pt able to stand at the toilet to urinate with close SBA . OT ADL-Bathing Comments OT Bathing Comments Not performed. M5 OT- IP IADL's Start: 07/02/19 11:34 Freq: Status: Active Protocol: Document 07/02/19 11:34 [facility] (Rec: 07/02/19 11:56 [facility] [id number]) OT-Instrumental Activities of Daily Living Medication Management Medication Management Caregiver Provides Supervision Money Management Money Management Caregiver Provides Assistance Meal Preparation Meal Preparation Caregiver Provides Assist Mri Tech Mri Tech Caregiver Provides Assist Driving Driving Caregiver Provides Assist M6 OT- IP Functional Cognition Start: 07/02/19 11:34 Freq: Status: Active Protocol: Document 07/02/19 11:34 [facility] (Rec: 07/02/19 11:56 [facility] [id number]) Cognitive Factors Limiting Selfcare Function Cognitive Ability Level of Alertness Alert Patient Orientation Name,Place,Situation Attention Span Ability Capable of Focused Attention, Capable of Sustained Attention Ability to Follow Commands Able to Follow One Step Commands Memory Description Short Term Impaired Safety Awareness Underestimates Need for Assistance Problem Solving Ability Needs Assist to Identify Solutions Cognitive Tests SLUMS Per LOGISTICS INTERN scored . Cognitive Comments Cognitive Assessment Comments Pt not remembering that he had spoken to Vanessa earlier and that pt was repeating his story of trying to get off Predisone. Pt a bit impulsive and will benefit from chair alarm if sitting in the recliner. OT- Vision and Hearing OT- Hearing Assessment OT- Hearing Assessment Use of Hearing Aids OT- Vision Assessment Visual Acuity Glasses All The Time M7 OT- IP Mobility and Balance Start: 07/02/19 11:34 Freq: Status: Active Protocol: Document 07/02/19 11:34 [facility] (Rec: 07/02/19 11:56 [facility] [id number]) OT- Bed Mobility Assessment Rolling Level of Assistance Standby Assistance Supine to Sit Supine to Sit Assist Standby Assistance OT-Transfer Assessment Sit to and From Stand Sit to and from Stand Contact Guard Assistance Transfers Transfer Ability Contact Guard Assistance Technique Transfer Destination Bed,Wheelchair Transfer Technique Stand Step Pivot Devices Transfer Assistive Devices Gait Belt,Straight Cane Comments Mobility Comments Pt needing increased time to get to the edge of the bed and initially leaning backwards into posterior tilt. Pt a bit unsteady on his feet and needing CGA for balance and had two loss of balance and needing LIZZ from therapist to prevent from falling. OT- Balance Assessment Sitting Balance and Reactions Static Sitting Balance Ability Good Dynamic Sitting Balance Ability Fair Standing Balance and Reactions Static Standing Balance Ability Fair Dynamic Standing Balance Ability Poor M8 OT- IP Objective Assessments Start: 07/02/19 11:34 Freq: Status: Active Protocol: Document 07/02/19 11:34 [facility] (Rec: 07/02/19 11:56 [facility] [id number]) OT Gross Range of Motion Upper Extremity Range of Motion Assessment Within Functional Limits OT Strength Upper Extremity Strength Assessment Within Functional Limits OT- Coordination Assessment Upper Extremity Finger to Nose Test Left UE Impaired Comments Coordination Comments Increased time for left hand and initially not able to touch his nose with left index finger. M9 OT- IP Assessment and Plan Start: 07/02/19 11:34 Freq: Status: Active Protocol: Document 07/02/19 11:34 [facility] (Rec: 07/02/19 11:56 [facility] [id number]) OT Summary Assessment and Plan Potential Rehabilitation Potential Good Analytic Complexity at Evaluation Low Summary OT Impairments Functional Cognition, Functional Mobility,Dressing, Toileting,Bathing,Toilet Transfers,Shower Transfers, Activity Tolerance Progress Towards Goals Slow Progress due to Activity Tolerance,Slow Progress due to Cognition Pt low complexity and main barrier are decreased balance and safety awareness. However after talking to his significant other, Vanessa, pt prior having decreased short term memory and that she would has to assist with his safety awareness at home. Pt appears to be close to baseline needs for ADL's and functional mobility at this time. Vanessa requesting a FWW could be issued due to unable to get a FWW for pt, PT able to request orders from physician. Vanessa feels that the FWW will be safer for pt to use versus his hurry cane at home. Anticipate discharge home with Vanessa to assist for needs. Goals Self-Feeding Goal Independent Grooming Goal Independent Dressing Goal Moderate Assistance Toileting Goal Standby Assistance Bathing Goal Minimal Assistance Toilet Transfer Goal Standby Assistance Shower Transfer Goal Contact Guard Assistance Frequency of Treatment Frequency Of Treatment Once a Day Treatment Plan OT Treatment Plan ADL Training,Functional Cognition Training,Functional Mobility,Patient/Family Education Discharge Recommendations OT Discharge Recommendations Home with Assistance, 31/10 when awake. Home Equipment Needs SHower chair, FWW Transportation Needs at Discharge Private Vehicle
--- NOTE | 2019-07-02 12:36 | ST.IP.CME ---
Visit Care Team Role Provider Type Gurdeep Cameron MD Primary Care Provider Physician Specialty: Internal Medicine Address: [address] [place] [address], [id number] Email: [email or web address] Giuseppe Brownlee DO Emergency Provider Physician Referring Provider Specialty: Emergency Medicine Address: [address] [place] [address], [id number] Email: [email or web address] Christel Altamirano DO Admit Provider Physician Attending Provider Specialty: Internal Medicine Address: [address] [place] [address], [id number] Email: [email or web address] Past Medical History (Last Reviewed 07/01/19 @ 21:03 by Krista Mc MD) Coronary artery disease (Chronic Medical) Depression (Chronic Medical) Diabetes type 2, controlled (Chronic Medical) History of nephrolithotomy with removal of calculi (Resolved Medical) History of pulmonary embolism (Resolved Medical) Hyperlipidemia (Chronic Medical) Hypertension (Chronic Medical) Kidney stone (Resolved Medical) Leukopenia (Chronic Medical) Metastatic malignant neoplasm to prostate (Chronic Medical) He has metastatic prostate cancer with a high Viking score. His PSA is undetectable. He will be due for Lupron injection today. Obstructive sleep apnea of adult (Chronic Medical) Prostate cancer metastatic to bone (Chronic Medical) Present on admission, acute Renal insufficiency (Chronic Medical) Rheumatoid arthritis (Chronic Medical) Small cell lung cancer (Chronic Medical) Thrombocytopenia (Chronic Medical) Thrombophlebitis of arm, left (Resolved Medical) UTI (urinary tract infection) (Inactive Medical) Speech-Language Pathology Cognitive Evaluation CAPITAL MARKETS SPECIALIST Cognitive/Memory Evaluation Start: 07/02/19 11:58 Freq: Status: Active Protocol: Document 07/02/19 11:59 [facility] (Rec: 07/02/19 12:12 LL [id number]) Evaluation of Cognition Session Time Visit Start Time 09:30 Visit Stop Time 09:45 Total Visit Minutes 15 Referral Referring Physician Christel Altamirano DO Reason for Referral TIA, altered mental status, confusion Evaluation Assessment Type Cognitive Assessment Past Medical History Patient History Per ?s History & Physical report on 07/01/2019, Nahun Cintron is a ?79-year- old male who was just in the emergency department yesterday with hematuria, nephrolithiasis and mild hydronephrosis and then this morning at home became confused in a persisting manner so was brought to the hospital where his mentation cleared and he has no recall of his confusion from this morning. He has no history of stroke or prior TIAs but has many, many risk factors including diabetes, heart disease, hypertension and hyperlipidemia.? Patient plans to discharge from [facility] this afternoon. He plans on returning home with , Vanessa. [employer] MARKETS SPECIALIST spoke to OT and PT who both reported that patient experienced a TIA (as reported/determined in staff meeting/huddle this morning). Hearing Hearing Level Hearing Aids Vision Comments Wears reading glasses [place] Language Language(s) Spoken in the Home Italian Educational Status Education Level 10th grade Occupational Status Occupation Status N/A Previous Therapy History of Therapy N/A Subjective Subjective Patient alert and oriented x4 (person, place, time, and situation). Patient reported 0 pain and/or discomfort during session. - - Cognition Orientation Skill Level WFL Attention Skill Level WFL Category Naming/Identification Skill Level [facility] Comment 15 animals in 1 minute Auditory Math Skill Level Moderately Impaired Comment 0/3 - unable to correctly answer math questions on SLUMS Clock Drawing Skill Level Moderately Impaired Comment did not put in the numbers in clock. Cognitive Assessment Cognitive Assessment Administered the [facility] Mental Status Examination (UMS) to assess his current level of functioning (e.g., reports stating confusion). Patient has less than a high school education (completed school up to 10th grade). Patient scored an 18/30, placing him in the mild cognitive impairment (MCI) class/group. Patient experienced difficulty on the following SLUMS subtests: recall (short-term memory), clock drawing, auditory comprehension, and calculations. - Memory Short Term Memory Skill Level Moderately Impaired Immediate Recall Skill Level Moderately Impaired Word Recall Skill Level Moderately Impaired Story Recall Skill Level Mildly Impaired Memory Assessment Memory Assessment Patient experienced moderate difficulty recalling five words/objects (2/5 correct) and mild difficulty recalling short story with questions (3/ 4 correct). Patient also requested his 's phone number to call her, even though Vicky CRAVEN stated that patient spoke with earlier this morning. Patient unable to recall recent events such as speaking to his on the phone this morning. - Findings Cognitive/Memory Impressions Patient presents with a mild cognitive impairment (MCI) as indicated by the SLUMS. Recommendations Recommendations Patient scheduled to discharge today. Recommended outpatient speech therapy to further assess cognitive abilities and deficits. Patient verbalized understanding with recommendations. Total Time Full Evaluation Time 15
--- NOTE | 2019-07-02 13:28 | PT.IIE ---
Surgical History (Last Reviewed 07/01/19 @ 21:03 by Krista Mc MD) H/O coronary angioplasty (Resolved) H/O umbilical hernia repair (Acute) History of appendectomy (Resolved) History of cholecystectomy (Resolved) Medical History (Last Reviewed 07/01/19 @ 21:03 by Krista Mc MD) Coronary artery disease (Chronic) Depression (Chronic) Diabetes type 2, controlled (Chronic) History of nephrolithotomy with removal of calculi (Resolved) History of pulmonary embolism (Resolved) Hyperlipidemia (Chronic) Hypertension (Chronic) Kidney stone (Resolved) Leukopenia (Chronic) Metastatic malignant neoplasm to prostate (Chronic) Obstructive sleep apnea of adult (Chronic) Prostate cancer metastatic to bone (Chronic) Renal insufficiency (Chronic) Rheumatoid arthritis (Chronic) Small cell lung cancer (Chronic) Thrombocytopenia (Chronic) Thrombophlebitis of arm, left (Resolved) UTI (urinary tract infection) (Inactive) Physical Therapy Inpatient Evaluation/Re-Eval M1 PT/OT-IP Prior Functional Status Start: 07/02/19 11:34 Freq: NEEDED Status: Active Protocol: Document 07/02/19 12:54 AW (Rec: 07/02/19 13:28 AW [id number]) Medical Review Prior Functional Status Medical History Reviewed Yes Communication Independent Mobility and Gait Per pt's significant other, Vanessa, states pt able to walk 500 ft in [facility] two weeks ago, however now has decreased to 30ft at a time due to progressively gotten weaker. Activities of Daily Living and IADL's Pt needing assist for socks/ shoes and SBA for showering after assist to step into the shower and use of grab bar. Vanessa states she is able to provide assist to pt as needed . Social History Household Members significant other Living Arrangements Apartment/Condo Number of Stairs To Enter/Railing? 16 steps with bilateral rails. Vanessa states pt uses both rail while walking up the steps, at times pt will try to use his cane and one rail, but Vanessa encouorages him to use both rail as he is safer that way. Home Environment Standard Height Toilet,Tub/ Shower Home Equipment Straight Cane,Grab Bars In Shower M2 PT-IP Current Condition Start: 07/02/19 09:21 Freq: NEEDED Status: Active Protocol: Document 07/02/19 12:54 AW (Rec: 07/02/19 13:28 AW [id number]) Physical Therapy Current Condition Current Condition Evaluation Date 07/02/19 Treatment Diagnosis suspected TIA, impaired balance and mobility, difficulty walking Onset Date 07/01/19 M3 PT-IP Subjective Start: 07/02/19 09:21 Freq: NEEDED Status: Active Protocol: Document 07/02/19 12:54 AW (Rec: 07/02/19 13:28 AW [id number]) Subjective Physical Therapy Visit Type Type Initial Evaluation Visit Start Time 09:47 Visit Stop Time 10:20 Total Visit Minutes 33 Notes Co-treat with JONO Hurd Physical Therapy Visit Comments Patient Comments Pt is not sure why he here but is willing to participate with PT Patient Goals To go home Therapy Pain Assessment Pain When Pain Assessed During Mobility Pain Present Pain Present Denied Pain M4 PT-IP Mobility and Gait Start: 07/02/19 09:21 Freq: NEEDED Status: Active Protocol: Document 07/02/19 12:54 AW (Rec: 07/02/19 13:28 AW [id number]) PT-Bed Mobility Assessment Supine to Sit Supine to Sit Independent Sit to Supine Sit to Supine Independent Scooting Scooting to Edge of Bed Standby Assistance PT-Transfer Assessment Sit to and From Stand Sit to and from Stand Contact Guard Assistance,1 Person Assistance,Use of Upper Extremities Equipment Transfer Assistive Device None,Gait Belt,Straight Cane, Front Wheeled Walker Orthotic/Prosthetic Devices or Brace: No Transfers Transfer Destination Bed Transfer Technique pt ambulated with SPC and without FWW Transfer Ability Level of Assist Contact Guard Assistance Comments Mobility Comments Pt was encountered reclined in bed, willing to work with therapy. He completed supine to sit from flat bed independent but required SBA for scooting to EOB due to unsteadiness. He was able to sit EOB with and without UE support for strength and coordination testing but did have occasional posterior LOB. First ambulation trial was completed with SPC during which pt required CGA at all times and min A x 1 to recover from lateral and posterior LOB twice. Second ambulation trial was completed with FWW which also required CGA but pt did not experience LOB requiring therapist assist during that assessment. Pt stated he does not have a walker at home, so order was secured from the hospitalist and the walker was dispensed since pt has a discharge order . Pt transferred back to the bed after all gait assessment and completed sit to supine independent. Bed alarm was armed for safety and RN was notified that the FWW had been dispensed. Gait Assessment Gait Gait Assistance Required: Contact Guard Assist,Minimum Assistance Distance (Feet) 100 Able to Maintain Weight Bearing Status Yes During Gait Assistive Devices Assistive Device Gait Belt,Straight Cane,Front Wheeled Walker Gait Deviations General Gait Pattern Ataxic,Decreased Stride Length ,Decreased Feet Clearance, Flexed Trunk Factors Limiting Gait Function Factors Limiting Gait Function Decreased Activity Tolerance, Decreased Sensation,Decreased Strength,Incoordination,Poor Balance,Poor Safety Awareness Comments Gait Comments See mobility comments. Pt was impulsive throughout gait assessment with SPC and with FWW, but had no LOB requiring PT assist with FWW. CGA required at all times regardless of AD due to unsteady gait and pt's poor attention to safety. Stair Climbing Assessment Evaluation Level of Assist On Stairs Contact Guard Assistance Devices Stair Climbing Assistive Devices Straight Cane,Left Railing Technique/Endurance Stair Climbing Direction Ascend and Descend Stair Climbing Technique Step Over Step,Step to Step Number of Steps Climbed 3 Query Text: Stair Climbing Set # Repetitions (reps) 3 Comments Stair Climbing Comments Pt required CGA and max cues for stair navigation with left rail and SPC held in right hand. PT-Balance Assessment Sitting Balance and Reactions Static Sitting Balance Ability Good Dynamic Sitting Balance Ability Good Standing Balance and Reactions Static Standing Balance Ability Fair Dynamic Standing Balance Ability Poor Device Used FWW M5 PT-IP Objective Assessments Start: 07/02/19 09:21 Freq: NEEDED Status: Active Protocol: Document 07/02/19 12:54 AW (Rec: 07/02/19 13:28 AW [id number]) Orientation Orientation/Cognition Level of Alertness Confusional State Orientation Name,Month,Place Language Function Ability Hard of Hearing Safety Awareness Decreased Safety Awareness Memory Description Short Term Impaired Comments Pt was perseverating on discharge, going outdoors, seeing the doctor. He repeated details several times with no apparent recall that he had already mentioned same detail. Gross Range of Motion Lower Extremity ROM Assessment Within Functional Limits Strength Lower Extremity Strength Assessment Within Functional Limits Hip 4+/5 Knee 4+/5 Ankle 4/5 Coordination Assessment Gross Coordination Gross Coordination Impaired Assessment Finger to Nose Test Minimal Impairment Pronation/Supination Test Minimal Impairment Coordination Comments Missed targets on finger to nose with eyes closed <2 cm with left arm Sensation Assessment Sensation Gross Sensation Right LE Impaired,Left LE Impaired Comments Sensation Comments Neuropathy affecting sensation in bilateral feet and distal legs Muscle Tone Muscle Tone WNL Yes M6 PT-IP Treatment Start: 07/02/19 09:21 Freq: NEEDED Status: Active Protocol: Document 07/02/19 12:54 AW (Rec: 07/02/19 13:28 AW [id number]) Physical Therapy Treatment Education Education Provided Precautions,Safety Other Treatments Other Treatment Performed Provided education on role of PT, plan of care, selection of appropriate assistive device, and safe use of FWW. M7 PT-IP Assessment and Plan Start: 07/02/19 09:21 Freq: NEEDED Status: Active Protocol: Document 07/02/19 12:54 AW (Rec: 07/02/19 13:28 AW [id number]) PT Summary Assessment and Plan Potential Rehabilitation Potential Good Status of Condition at Evaluation Evolving Summary Impairments Strength,Balance,Coordination, Sensation,Cognition,Transfers, Gait,Activity Tolerance Assessment Summary Nahun is a 79 yo man seen for PT evaluation on day after admission with TIA-like symptoms of confusion. Head CT and MRI were clear. Per ST, SLUMS score was 18/30 and pt uses humor to deflect or mask deficits. At baseline, pt receives CGA for all mobility from his significant other, Vanessa, and SPC. On evaluation , pt was impulsive and had positive losses of balance requiring PT assist to recover with SPC. He remained unsteady and impulsive with FWW, but was safer with no LOB . Pt is likely at or near his cognitive and mobility baseline. He will be safe to discharge to home environment once medically cleared but would benefit from PT to address gait and balance impairments. Goals Transfer Goal Standby Assistance,Four Wheeled Walker Gait Goal Standby Assistance,Four Wheel Walker Gait Distance 150 Other Goals - up/down 16 stairs with unilateral rail and SPC held in opposite hand Days to Meet Goals 5 Frequency of Treatment Frequency Of Treatment Once a Day Treatment Plan Physical Therapy Treatment Plan Bed Mobility Training,Transfer Training,Gait Training, Therapeutic Exercise,Balance Retraining,Post Op Education, Discharge Planning,Hot or Cold Pack,Neuromuscular Re-ed, Coordination Retraining,Manual Therapy Other Recommendations and Next Treatment stairs, gait training with FWW Focus Recommendations To Nursing Amount of Assist Needed Standby Assistance,1 Person Assist Discharge Recommendations PT Discharge Recommendations Home with Assistance,Home Health Equipment Needed for Home Before FWW dispensed 07/02/19 Discharge Transportation Needs at Discharge Private Vehicle
--- NOTE | 2019-07-02 14:09 | DI.RAD.S_ITS ---
PROCEDURE: XR KUB INDICATIONS: Recent history of gross hematuria, with CT demonstrated left-sided proximal ureteral stones. Dr Bravo wants prior to patient's outpatient appointment TECHNIQUE: One view of the abdomen acquired. COMPARISON: [facility], CT, CT ABDOMEN PELVIS WO CON, 06/30/2019, 3:51. FINDINGS: Surgical changes and devices: Cholecystectomy clips are seen. Bowel: Bowel gas pattern is normal. Soft tissues: Stable calcification can be seen involving the right medial kidney that measures 1 cm and is attributed to arterial calcification on the CT examination. There is potential plain film visualization of the proximal left renal stone that measures 9 mm. Visualized solid organ contours appear normal in size. Bones: No suspicious bony lesions. Age-appropriate bony degenerative changes are seen. IMPRESSION: Potential plain film visualization of one of the previously seen proximal left ureteral stones measuring 9 mm. As clinically appropriate, please consider a repeat noncontrast CT study of the abdomen and pelvis. Apparent arterial calcifications of the right kidney. Incidental note is made of: Cholecystectomy clips Bony degenerative change Dictated by: Tramaine Meng M.D. on 07/02/2019 at 13:49 Approved by: Tramaine Meng M.D. on 07/02/2019 at 13:54
--- NOTE | 2019-07-02 17:11 | P.DS_ITS ---
History of Present Illness History of Present Illness Date Patient Seen: 07/02/19 Chief complaint: Syncope Narrative: Written by Dr. Mc: This is a 79-year-old male who was just in the emergency department yesterday with hematuria, nephrolithiasis and mild hydronephrosis and then this morning at home became confused in a persisting manner so was brought to the hospital where his mentation cleared and he has no recall of his confusion from this morning. He has no history of stroke or prior TIAs but has many, many risk factors including diabetes, heart disease, hypertension and hyperlipidemia. He also has a history of PE, treated with Coumadin and a history of small-cell lung cancer and metastatic prostate cancer. He has had no prior neurologic symptoms in this previous week. He did have hematuria yesterday leading to the CT scan diagnosis of a new kidney stone with hydronephrosis. He has had no lateralizing weakness, trouble walking, falls or known head trauma. 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 Earlier this month he had both a brain MRI and a chest CT showing no evidence of lung cancer or metastasis. He does have shoulder mets from the prostate cancer however. Discharge Providers Provider Date of admission: 07/01/19 14:35 Discharge Date: 07/02/19 Primary care physician: Gurdeep Cameron MD Consults: 07/01/19 17:42 Consult to Occupational Therapy Evaluate & Treat Comment: Physician Instructions: Evaluate and treat Consult to Physical Therapy Evaluate & Treat Comment: fww for home use Physician Instructions: Evaluate and Treat Consult to Speech Therapy Evaluate & Treat Comment: Physician Instructions: Evaluate and treat 07/01/19 20:00 Consult to Pharmacy Routine Comment: Warfarin for PE 07/02/19 08:28 Consult to Respiratory Therapy Evaluate & Treat Comment: Physician Instructions: Evaluate and treat 07/02/19 11:42 Consult to Physical Therapy Evaluate & Treat Comment: Physician Instructions: Evaluate and Treat Discharge provider: Christel Altamirano DO Summary Hospital Course Discharge Diagnosis: 1. TIA, acute, present on admission 2. Acute bilateral nephrolithiasis with mild left-sided hydronephrosis and hematuria, present on admission. Stable. 3. Diabetes mellitus type 2, non-insulin using, present on admission. Stable. 4. Hypertension, chronic, present on admission. Stable. 5. Hyperlipidemia, chronic, present on admission. Stable. 6. Coronary artery Disease, chronic, present on admission. Stable. 7. Metastatic Prostate Cancer, chronic, present on admission. Stable. 8. Rheumatoid Arthritis, chronic, present on admission. Stable. 9. Small Cell Lung Cancer, chronic, present on admission. Stable. 10. Depression, chronic, present on admission. Stable. 11. Thrombocytopenia, chronic, present on admission. Stable. 12. History of pulmonary embolus. 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 1. TIA, acute, present on admission -Patient presented after episode of acute confusion with expressive aphasia. -NIH 0. Patient is not a tPA candidate. -EKG demonstrated normal sinus rhythm. Continued to monitor closely on telemetry. Patient had no significant ectopy throughout hospitalization. -CT brain without contrast did not demonstrate any acute intracranial abnormalities. -MR stroke protocol demonstrated -Risk stratified with hemoglobin A1c which was normal at 5.6% indicative of his diabetes in remission and fasting lipid panel: Total cholesterol 122, triglycerides elevated at 250, LDL 44, HDL low at 28. Could consider [place] 3 to help increase HDL for cardioprotective properties. -Continued Xarelto 20 mg daily and atorvastatin 40 mg daily at bedtime for stroke prophylaxis. -Continued physical, occupational and speech therapy evaluation and treatment. Physical therapy recommended home with home health, occupational therapy r ecommends a shower chair and forward wheeled walker at all times, and speech therapy recommends continue outpatient speech therapy for cognitive improvement. 2. Acute bilateral nephrolithiasis with mild left-sided hydronephrosis and hematuria, present on admission. Stable. -Urine culture preliminarily has no growth. -Patient plans to reschedule outpatient Urology appointment with Dr. Keenan. 3. Diabetes mellitus type 2, non-insulin using, present on admission. Stable. -Hemoglobin A1c 5.6% indicative of diabetes in remission. -Continued diet control with carbohydrate consistent/heart healthy diet and home metformin 500 mg twice daily. 4. Hypertension, chronic, present on admission. Stable. -Continued home carvedilol 25 mg twice daily, losartan 50 mg daily, and minoxidil 10 mg daily. 5. Hyperlipidemia, chronic, present on admission. Stable. -Continued home atorvastatin 40 mg daily at bedtime. 6. Coronary artery Disease, chronic, present on admission. Stable. -Continued home atorvastatin 40 mg daily at bedtime, carvedilol 25 mg twice daily, and Xarelto 20 mg daily. 7. Metastatic Prostate Cancer, chronic, present on admission. Stable. -Continued home tamsulosin 0.4 mg daily. 8. Rheumatoid Arthritis, chronic, present on admission. Stable. -Continued home prednisone 10 mg daily. 9. Small Cell Lung Cancer, chronic, present on admission. Stable. -Current status unclear. Patient is status post radiation to left lung and brain prophylactically and 4 rounds of chemotherapy with carboplatin and etoposide. 10. Depression, chronic, present on admission. Stable. -Continued home citalopram 20 mg daily. 11. Thrombocytopenia, chronic, present on admission. Stable. -Secondary to small-cell lung cancer and metastatic prostate cancer -Platelets 77 admission, recent range 71 - 82. 12. History of pulmonary embolus. -Continued home Xarelto 20 mg daily. Exam Vital Signs (past 8 hours): - 07/02/19 12:00 Temperature 98.5 F Pulse Rate 72 Respiratory Rate 17 Blood Pressure 125/57 L Pulse Oximetry 89 L Oxygen Delivery Method Room Air Oxygen Flow Rate 0 Narrative Exam Narrative: General: Elderly gentleman standing in room and in no acute distress, appears chronically ill, good spirits, appropriately interactive. HEENT: Normocephalic, atraumatic. External ears without defect. Pupils equal, round, and reactive to light. Anicteric sclerae, moist conjunctivae, and no lid lag. Hard of hearing. Neck: Supple with full range of motion. No lymphadenopathy or thyromegaly. Cardiovascular: Regular rate and rhythm without murmurs, rubs, or gallops appreciated. Pulmonary: Clear to auscultation bilaterally with scattered rhonchi. No wheeze or crackles. Normal respiratory effort with no use of accessory muscles. Abdomen: Soft, bowel sounds present, non-tender, nondistended. No hepatosplenomegaly or masses appreciated. Extremities: No clubbing, cyanosis, or edema. Skin: Normal temperature, turgor, and texture; no rash, ulcers, or subcutaneous nodules appreciated. Neurological: Cranial nerves grossly intact. Normal muscle strength, tone, and bulk. Reflexes, coordination, and sensory function within normal limits. No focal neurological deficits. Psychiatric: Normal mood and affect. Alert and oriented to person, place, and time. Objective Labs Result Diagrams: 07/01/19 13:35 07/01/19 13:35 Labs: Laboratory Results - last 24 hr 07/02/19 07/02/19 05:50 05:50 Hemoglobin A1c 5.6 Triglycerides 250 H Cholesterol 122 L LDL Cholesterol, Calc 44 HDL Cholesterol 28 L Discharge Plan Discharge Plan Patient Disposition: Home Health Service Discharge comment: Your being discharged home. You did not have a stroke. You likely had a TIA or transient ischemic attack which is where your brain went without blood flow for a short amount of time and did not endure damage. Continue your home medications Xarelto and atorvastatin for stroke prevention. Physical therapy recommends home with home health, occupational therapy recommends a shower chair and forward wheeled walker at all times, and speech therapy recommends continue outpatient speech therapy for cognitive improvement. Please follow-up with your primary care physician, Dr. Cameron, regarding your hospitalization. You missed your appointment today with the urologist Dr Bravo. His office s cristin be calling you tomorrow to schedule a new appointment. If you haven't heard from them by noon tomorrow please call the office [phone]. Discharge orders & Medications Prescriptions: Continued atorvastatin [Lipitor] 40 MG tablet 40 mg PO BEDTIME Qty: 0 RF: 0 metformin 500 mg Tablet 500 mg PO BID RF: 0 Xarelto 20 mg Tablet 20 mg PO DAILY Qty: 90 RF: 0 citalopram 10 mg tablet 20 mg PO DAILY RF: 0 tamsulosin [Flomax] 0.4 mg Capsule 0.4 mg PO DAILY Qty: 30 RF: 6 cyanocobalamin (vitamin B-12) [Vitamin B-12] 1,000 mcg Tablet 1,000 mcg PO DAILY RF: 0 alpha lipoic acid 600 mg 600 mg PO DAILY RF: 0 losartan 50 mg Tablet 50 mg PO DAILY RF: 0 furosemide 20 mg Tablet 20 mg PO DAILY PRN (Reason: Edema) RF: 0 carvedilol 25 mg Tablet 25 mg PO BID RF: 0 minoxidil 10 mg Tablet 10 mg PO DAILY RF: 0 oxycodone-acetaminophen [Percocet] 5-325 mg tablet 1 tab PO Q4-6H PRN (Reason: pain) Qty: 10 RF: 0 (DME) Respironics Dreamstation BIPAP Qty: 1 RF: 0 prednisone 10 mg tablet 10 mg PO DAILY RF: 0 Follow up/Referrals: Gurdeep Cameron MD [Primary Care Provider] - 1 Week Diet/Activity/Treatments Diet: Carb-consistent/Diabetic, Low-fat, Low-sodium and Low-cholesterol Visit Report/Discharge Packet Instructions: Transient Ischemic Attack, DI for Transient Ischemic Attack, DI for Prescription Opioid Use Discharge Data Primary Care Provider: Gurdeep Cameron V Attending Provider: Christel Altamirano Admit Date/Time: 07/01/19 14:35 Discharges patient from system. Discharge Date/Time: 07/02/19 17:11
== END 2019-07-02 17:11 | disposition home health service (06) ==
LOC: ED 14:19 → AC 14:39
PROVIDERS: Family Medicine; Admitting Provider Internal Medicine; Emergency Provider Emergency Medicine; PCP Internal Medicine; Referring Provider Emergency Medicine; Visit Provider Internal Medicine
DX: R41.82 Altered mental status, unspecified (principal); F17.210 Nicotine dependence, cigarettes, uncomplicated; Z86.711 Personal history of pulmonary embolism; Z79.01 Long term (current) use of anticoagulants; E11.9 Type 2 diabetes mellitus without complications; I10 Essential (primary) hypertension; E78.5 Hyperlipidemia, unspecified; N13.2 Hydronephrosis with renal and ureteral calculous obstruction; Z79.84 Long term (current) use of oral hypoglycemic drugs; D69.6 Thrombocytopenia, unspecified; F32.9 Major depressive disorder, single episode, unspecified; M06.9 Rheumatoid arthritis, unspecified; I25.10 Atherosclerotic heart disease of native coronary artery without angina pectoris; C61 Malignant neoplasm of prostate
CPT/HCPCS: 36415; 70450; 70548; 70553; 74018; 80048; 80061; 80320; 81001; 82550; 82962; 83036; 85025; 85610; 85730; 87086; 92523; 93005; 97116; 97161; 97165; 99285; G0378

== ENCOUNTER 2019-07-08 07:25 | Day surgery (SDC) | payer MEDICARE, OTHER, SELFPAY ==
[2019-07-08] VITALS (14 sets, daily range): BP systolic 121–177; BP diastolic 64–95; PULSE 61–74; RESP 10–20; TEMP 36.2–36.6; O2SAT 90–95; BMI 34.6
--- NOTE | 2019-07-08 | DI.RAD.S_ITS ---
PROCEDURE: XR CHEST 1V INDICATIONS: low oxygen level post op TECHNIQUE: One view of the chest was acquired. COMPARISON: [facility], CT, CT ABDOMEN PELVIS WO CON, 06/30/2019, 3:51. [facility], CR, XR KUB, 07/02/2019, 14:18. [facility], CR, XR ABDOMEN 1V, 07/08/2019, 9:45. [facility], CR, XR CHEST 2V, 04/17/2018, 13:20. FINDINGS: Surgical changes and devices: Cholecystectomy clips. Lungs and pleura: There is increased pulmonary vascularity as well as trace left effusion. Streaky opacities are noted in the retrocardiac region Mediastinum: Mediastinal contours appear normal. Heart size is enlarged. Bones and chest wall: No suspicious bony lesions. Overlying soft tissues appear unremarkable. IMPRESSION: Increased vascular and cardiomegaly suggestive of edema. Increased opacity is noted retrocardiac region. This could represent focal edema or developing of atelectasis/pneumonia. Dictated by: Gabrielle Rivera M.D. on 07/08/2019 at 14:10 Approved by: Gabrielle Rivera M.D. on 07/08/2019 at 14:33
[2019-07-08] MEDS: LACTATED RINGERS 1,000 ML 42 ML IV (08:21)
[2019-07-08] MEDS: CEFAZOLIN 2 GM/100 ML FROZ.PIGGY IV (08:59)
--- NOTE | 2019-07-08 09:08 | PM.PREOP ---
Pre-operative Note Interval Note History & Physical reviewed/Exam performed by Physician: Yes Changes to H&P: No
--- NOTE | 2019-07-08 09:44 | SUR.OPER ---
Lithotomy on padded OR bed, head on pillow, arms secured on padded arm boards at <90 degrees abduction. Legs secured in padded yellow fins stirrups.
[2019-07-08] MEDS: IOPAMIDOL 15 ML VIAL INJ (09:52)
--- NOTE | 2019-07-08 10:04 | DI.RAD.S_ITS ---
PROCEDURE: XR ABDOMEN 1V INDICATIONS: LEFT URETERAL STENT PLACEMENT TECHNIQUE: 4 intraoperative fluoroscopic images of the abdomen acquired. COMPARISON: [facility], CT, CT ABDOMEN PELVIS WO [place], 06/30/2019, 3:51. FINDINGS: Intraoperative fluoroscopic images shows contrast opacification of left ureter and left renal collecting systems. There is suggestion of intraluminal filling defect and no region of left renal pelvis/left UPJ. Under fluoroscopic guidance, a left-sided ureteral stent is placed. IMPRESSION: Pleural guidance was provided intraoperatively for left-sided ureteral stent placement. Suggestion of left UPJ stone. Dictated by: Dutch Vasquez M.D. on 07/08/2019 at 10:37 Approved by: Dutch Vasquez M.D. on 07/08/2019 at 10:39
--- NOTE | 2019-07-08 10:07 | SUR.PHASEI ---
arrived to PACU, arousing but not responding to voice. Bilateral hearing aids in place, dentures in cup
--- NOTE | 2019-07-08 10:18 | SUR.PHASEI ---
Report off to Rigo Nelson RN. Pt responsive, mostly sleeping. Declined ice chips.
--- NOTE | 2019-07-08 10:37 | PM.OP.1 ---
Operative Date/Time/Diagnoses Date of procedure: 07/08/19 Time of procedure: 10:37 Pre-op diagnosis: 1. Left ureteropelvic junction calculus. 2. Left ureteral calculus. 3. Gross hematuria. Post-op diagnosis: same Procedure & Clinicians Same procedure as scheduled: Yes
--- NOTE | 2019-07-08 10:39 | P.OP_ITS ---
Procedure & Clinicians Procedure: 1. Cystoscopy and left retrograde pyelogram. 2. Cystoscopy and placement left ureteral stent (see 26 cm x 6 [place] Islander). Same procedure as scheduled: Yes Indications: See the 1. Left ureteropelvic junction calculus 2. Left ureteral calculus 3. Gross hematuria Surgeon: Gdofrey Keenan Click Yes if Unassisted: Yes Anesthesia Type: General Operative Notes Findings: 1. Urethra-normal 2. External sphincter-coapted 3. Prostate-3.5-4 cm length with moderate lateral lobe hyperplasia. 4. Bladder-1+ trabeculation normal orifices bilaterally. 5. Left retrograde pyelogram-radio- lucent calculi Closure Type: not applicable Specimen(s): none sent Applied: other (6 x 26 F) Estimated Blood Loss (mL): 0 Blood products transfused: none Procedure in detail: The patient was positioned in supine and administered general anesthesia. The patient was then repositioned in semi-lithotomy the lower abdomen genitalia and groin were prepped and draped in sterile fashion. The 22 [place] Islander panendoscope was passed in lower urinary tract with the findings as described above. A 5 [place] Islander whistle-tip catheter was then passed into the left collecting system and left ureter retrograde pyelography revealed the findings as described above. A 0.35 sensor tip guidewire was then advanced through the working port of the scope and advanced to left collecting system under direct and fluoroscopic guidance. Over this a 6 [place] Islander x 24 cm double-J ureteral stent was placed satisfactorily again under direct and fluoroscopic guidance. No retrieval line was left attached. The bladder was then drained completely and all instrumentation was removed. Patient was repositioned supine and awakened, and transported to recovery in stable condition. Complications: none Post-operative Condition: stable Disposition: PACU Plan for aftercare: 1. Discharge home today. 2. Schedule outpatient follow-up appointment with me in 3-4 weeks with KUB. 3. We will need future left ureteroscopic laser lithotripsy.
--- NOTE | 2019-07-08 10:45 | SUR.PHASEI ---
Mostly sleeping, arousing occasionally. Denies pain/nausea. Instructed to use BiPAP when at home. Skin warm and dry, resp unlabored, will taper off O2 (reduced to 2L)
--- NOTE | 2019-07-08 10:50 | SUR.PHASEI ---
called in to room 4, notified Dr. Weller via Nayeli of the BP (over 50 points higher than on admit), HR 64, denies pain/nausea. No orders given.
--- NOTE | 2019-07-08 10:55 | SUR.PHASEI ---
arouses to voice, declines PO intake, shakes head that he is ready to progress towards discharge. O2 dc'd
--- NOTE | 2019-07-08 10:56 | SUR.PHASEI ---
desat 89-91% on room air. VSS, will prepare to transfer to OPD and maintain on O2
--- NOTE | 2019-07-08 11:12 | SUR.PHASEII ---
Report given to Rigo Nelson RN. Pt at 92% on 2LNP via continuous pulse ox. Declines water or juice, arouses easily to voice.
--- NOTE | 2019-07-08 11:52 | SUR.PHASEII ---
ambulated to bathroom on room air, voided qs pink tinged urine. C/o burning on urination. Returned to bed, ra 85-87%, returned to 2LNP and continuous pulse ox. Denies pain, declines fluids/food. Report updated to Rigo Nelson RN.
--- NOTE | 2019-07-08 11:57 | SUR.PHASEII ---
o2sat 88-95% on o2. I.S. provided, verbal instructions given, return demonstration done, patient able to get to 1250mmhg.
--- NOTE | 2019-07-08 12:55 | SUR.PHASEII ---
Patient ambulated to the bathroom on RA. O2 sat 78% RA upon return to stretcher. IS encouraged, sats increased to 91% RA. Continuous pulse ox in place.
--- NOTE | 2019-07-08 14:14 | SUR.PHASEII ---
Patient up to the bathroom, sats 86%ra. Deep breaths encouraged. Sats 96% RA.
--- NOTE | 2019-07-08 16:19 | SUR.PHASEII ---
Patient ambulated to the bathroom again. Has had incontinence of light red urine. O2 sat 82% RA upon return to stretcher. Sats increased quickly to 93% when patient sat down. Patient denied SOB during earlier walk to the bathroom. Dr. Weller evaluated patient, discussed status. VVO for patient to discharge per MD.
--- NOTE | 2019-07-08 16:27 | SUR.PHASEII ---
Clarified patient's blood thinner orders with Dr. Keenan. Patient to hold the blood thinner today and call the MD's office in the morning to discuss urine color. Vanessa, patient's SO, notified.
== END 2019-07-08 15:53 | disposition home or self-care (01) ==
PROVIDERS: PCP Internal Medicine; Referring Provider Specialist; Visit Provider Specialist
PROC: (CPT 52332; principal; 2019-07-08 08:30)
DX: N20.2 Calculus of kidney with calculus of ureter (principal); Z79.01 Long term (current) use of anticoagulants; N40.0 Benign prostatic hyperplasia without lower urinary tract symptoms
CPT/HCPCS: 52332; 71045; 74018; 76000; J0690; J1100; J2405; J2704; J3010

== ENCOUNTER → 2019-07-23 13:16 | Outpatient (CLI) | payer MEDICARE, OTHER, SELFPAY ==
[2019-07-01 16:14] VITALS: BMI 34.8
[2019-07-23 23:15] LABS: COVID19 Sendout Not Detected (Not Detect)
== END ==
PROVIDERS: PCP Internal Medicine; Visit Provider Registered Nurse
DX: Z01.818 Encounter for other preprocedural examination (principal)
CPT/HCPCS: 87635

== ENCOUNTER → 2019-07-24 15:56 | Outpatient (CLI) | payer MEDICARE, OTHER, SELFPAY ==
[2019-07-01 16:14] VITALS: BMI 34.8
[2019-07-24 16:57] LABS: BUN Creatinine Ratio 12.2 (6-22); Blood Urea Nitrogen 15 mg/dL (9-20); Calcium 9.3 mg/dL (8.4-10.2); Carbon Dioxide 30 mmol/L (22-32); Chloride 106 mmol/L (98-107); Estimated Glomerular Filt Rate 56.8 mL/min (>60); Glucose 175 mg/dL (80-110); HEMOLYSIS < 15 (0-50); Potassium 3.6 mmol/L (3.4-5.1); Sodium 140 mmol/L (137-145)
[2019-07-24 17:00] LABS: Hemoglobin A1C% w Est Avg Glu 5.8 % (4.0-6.0)
== END ==
PROVIDERS: PCP Internal Medicine; Referring Provider Internal Medicine; Visit Provider Internal Medicine
DX: I10 Essential (primary) hypertension (principal); E11.9 Type 2 diabetes mellitus without complications
CPT/HCPCS: 36415; 80048; 83036

== ENCOUNTER 2019-07-26 09:51 | Day surgery (SDC) | payer MEDICARE, OTHER, SELFPAY ==
[2019-07-19 13:42] VITALS: BMI 34.8
[2019-07-26] VITALS (10 sets, daily range): BP systolic 75–138; BP diastolic 35–76; PULSE 62–72; RESP 12–17; TEMP 36.3–36.6; O2SAT 88–97; BMI 34.8
--- NOTE | 2019-07-26 11:00 | DI.RAD.S_ITS ---
PROCEDURE: XR KUB INDICATIONS: prior to surgical procedure TECHNIQUE: One view of the abdomen acquired. COMPARISON: Merged With [facility], CT, CT ABDOMEN PELVIS WO CON, 06/30/2019, 3:51. Merged With [facility], CR, XR KUB, 07/02/2019, 14:18. FINDINGS: Surgical changes and devices: A left-sided double J stent has been placed. Cholecystectomy clips are seen. Bowel: Bowel gas pattern is normal. Soft tissues: The previously seen left-sided kidney stone is no longer definitely seen. Calcifications are seen overlying the right kidney, which on the prior CT are attributed to vascular calcifications. Bones: No suspicious bony lesions. Age-appropriate bony degenerative changes are seen. IMPRESSION: Left-sided double J stent, with the previously seen left-sided stone no longer seen by plain film. Dictated by: Tramaine Meng M.D. on 07/26/2019 at 9:51 Approved by: Tramaine Meng M.D. on 07/26/2019 at 9:54
[2019-07-26] MEDS: LACTATED RINGERS 1,000 ML 42 ML IV (11:10)
--- NOTE | 2019-07-26 11:35 | PM.PREOP ---
Pre-operative Note Interval Note History & Physical reviewed/Exam performed by Physician: Yes Changes to H&P: No H&P completed within 30 days and has changed as indicated here:: There are no changes to the history and physical examination scanned on file.
[2019-07-26] MEDS: CEFAZOLIN 2 GM/100 ML FROZ.PIGGY IV (12:30)
--- NOTE | 2019-07-26 12:56 | SUR.OPER ---
Lithotomy on padded OR bed, head on pillow, arms secured on padded arm boards at <90 degrees abduction. Legs secured in padded yellow fins stirrups.
[2019-07-26] MEDS: IOPAMIDOL 15 ML VIAL INJ (13:33)
--- NOTE | 2019-07-26 14:20 | DI.RAD.S_ITS ---
PROCEDURE: FL PYELOGRAM RETROGRADE COMPARISON: [facility], CR, XR KUB, 07/26/2019, 10:26. INDICATIONS: LEFT STENT REMOVAL AND LITHOTRIPSY FINDINGS: Spot fluoroscopic images demonstrating partially visualized left ureteral stent and wire. Contrast present within the renal collecting systems. Dictated by: Israel Hicks M.D. on 07/29/2019 at 13:15 Approved by: Israel Hicks M.D. on 07/29/2019 at 13:16
--- NOTE | 2019-07-26 14:24 | PM.OP.1 ---
Operative Date/Time/Diagnoses Date of procedure: 07/26/19 Time of procedure: 14:25 Pre-op diagnosis: 1. Left renal calculus. 2. Retained left ureteral stent. 3. Ongoing gross hematuria. 4. Medical requirement of chronic anticoagulation. Post-op diagnosis: same Procedure & Clinicians Same procedure as scheduled: Yes
--- NOTE | 2019-07-26 14:28 | PM.OP.1 ---
Operative Date/Time/Diagnoses Date of procedure: 07/26/19 Time of procedure: 14:28 Pre-op diagnosis: 1. 1.4 cm left renal calculus. 2. Retained left ureteral stent. 3. Intermittent gross hematuria. 4. Medical requirement of chronic anticoagulation. Post-op diagnosis: same Procedure & Clinicians Procedure: 1. Cystoscopy and left ureteroscopic laser lithotripsy. 2. Cystoscopy and left ureteral stent removal. 3. Cystoscopy and left retrograde pyelogram. Same procedure as scheduled: No (Elected not to replace left ureteral stent.) Indications: 1. Left renal calculus. 2. Retained left ureteral stent. 3. Intermittent gross hematuria. 4. Medical requirement for chronic anticoagulation. Surgeon: Godfrey Keenan Click Yes if Unassisted: Yes Anesthesia Type: General Operative Notes Findings: Relatively radiolucent left renal pelvic calculus. Urethra-normal. External sphincter-coapted. Prostate -3-3.5 cm length with mild lateral lobe hyperplasia. Bladder-2+ trabeculation, no stone tumor or foreign body seen other than left ureteral stent distal tip. Closure Type: not applicable Specimen(s): none sent Estimated Blood Loss (mL): 0 Blood products transfused: none Tourniquet time (min): 0 Procedure in detail: The patient was positioned supine and was administered general anesthesia. He was then repositioned semi lithotomy the lower abdomen genitalia and groin were prepped and draped in sterile fashion. The 22 [place] panendoscope was then passed lower urinary tract with the findings as described above. Foreign body grasper was then advanced through the working port of the panendoscope and the stent was engaged and brought out to the urethral meatus. The scope was then reintroduced and a 0.35 guidewire was advanced into the left collecting system under direct and fluoroscopic guidance. The stent was removed in its entirety at that time. Next the double-lumen access sheath was advanced over the existing wire under direct and fluoroscopic guidance into the left collecting system the 2nd wire was then advanced. The dual-lumen access catheter was then backloaded off both wires. Now 1 of the wires was utilized to advance for the advancement of a 12 [place]ish ureteral access sheath. Again, placed over direct fluoroscopic guidance. A [place] disposable ureteral scope was then advanced over the central guidewire and advanced into the intrarenal collecting system. Pyelography was then performed. The stone was seen in this central renal pelvis. A 200 micron laser fiber was then selected and this was advanced through the ureteral scope. The stone was then localized visually. All operating room staff and patient were fitted with laser safety eyewear laser lithotripsy was then commenced with excellent subsequent stone fragmentation. A careful exhaustive search for further stone fragments or stones was then undertaken beginning at the upper pole calices and systematically examining the entire collecting system. No additional stone or large fragments was identified. Under direct visualization the ureteral scope was then carefully backloaded out of the ureter again in search for any residual fragments or stone. None were found. The ureteral scope and sheath were removed in their entirety. The safety wire was removed as well. The panendoscope was then reintroduced and the lower urinary tract and careful inspection revealed no evidence of stone tumor or foreign body residual E within the bladder. The bladder was drained a final time and all instrumentation was removed a final time. Patient was then repositioned in supine, was awakened, and transferred For to a gurney. He was then transported to recovery in stable condition. Complications: none Post-operative Condition: stable Disposition: PACU Plan for aftercare: Discharge home
[2019-07-26] MEDS: FUROSEMIDE 20 MG/2 ML VIAL IV (14:45)
--- NOTE | 2019-07-26 14:45 | SUR.OPER ---
Please refer to Holmium laser treatment record for laser settings
--- NOTE | 2019-07-26 15:27 | SUR.PHASEI ---
on transfer to phase 2 pt asked to stand to usrinate. stumpled whern standing alone and urinated a bit on floor. noted small clots and blood tinged urine. pt sitting in wheelchair to finish phase 2 recovery
--- NOTE | 2019-07-26 17:07 | SUR.PHASEII ---
Pt cleared by Dr Keenan for discharged from post op with spirometer r/t low sats. Pt has a hxo smoking and COPB. See vitals
== END 2019-07-26 17:09 | disposition home or self-care (01) ==
PROVIDERS: PCP Internal Medicine; Referring Provider Specialist; Visit Provider Specialist
PROC: 0TF78ZZ Fragmentation in Left Ureter, Via Natural or Artificial Opening Endoscopic (ICD-10-PCS; CPT 52353; principal; 2019-07-26 10:45)
DX: N20.1 Calculus of ureter (principal); N40.0 Benign prostatic hyperplasia without lower urinary tract symptoms; Z79.01 Long term (current) use of anticoagulants; Z86.711 Personal history of pulmonary embolism
CPT/HCPCS: 52353; 74018; 74420; 76000; J0690; J1940; J2405; J2704; J3010

== ENCOUNTER → 2019-08-22 10:23 | Outpatient (CLI) | payer MEDICARE, OTHER, SELFPAY ==
--- NOTE | 2019-08-22 | DI.RAD.S_ITS ---
PROCEDURE: XR KUB INDICATIONS: KIDNEY STONE TECHNIQUE: One view of the abdomen acquired. COMPARISON: [facility], CR, XR ABDOMEN 1V, 07/08/2019, 9:45. [facility], CT, CT ABDOMEN PELVIS WO CON, 06/30/2019, 3:51. [facility], CR, XR KUB, 07/26/2019, 10:26. FINDINGS: Surgical changes and devices: Cholecystectomy clips. Left ureter stent has been removed. Bowel: Scattered small bowel and colonic gas. Increased stool in the colon. Soft tissues: Trace subtle calcification in the region of the left upper quadrant. This could be within the bowel are left kidney. Small stones in the left ureter seen on prior CT are not definitely seen. Vascular curvilinear calcification overlying the right kidney. Bones: No suspicious bony lesions. L5 degenerative change. IMPRESSION: Previously seen left kidney stones are not definitely seen. Increased stool in the colon. Dictated by: Curt Conte M.D. on 08/22/2019 at 11:14 Approved by: Curt Conte M.D. on 08/22/2019 at 11:19
[2019-08-22 12:17] LABS: Calcium 9.1 mg/dL (8.4-10.2); Uric Acid 3.8 mg/dL (3.5-8.5)
[2019-08-23 06:43] LABS: Parathyroid Hormone Int 30 pg/mL (15-65)
== END ==
PROVIDERS: PCP Internal Medicine; Referring Provider Specialist; Visit Provider Specialist
DX: N20.0 Calculus of kidney (principal)
CPT/HCPCS: 36415; 74018; 82310; 83970; 84550

== ENCOUNTER → 2019-10-29 15:29 | Outpatient (CLI) | payer MEDICARE, OTHER, SELFPAY ==
--- NOTE | 2019-10-29 15:34 | DI.RAD.S_ITS ---
PROCEDURE: XR SHOULDER RT MIN 2V INDICATIONS: RT ROTATOR CUFF TENDONITIS TECHNIQUE: 3 views of the shoulder were acquired. COMPARISON: [facility], CT, CT CHEST ABD PEL W CON, 06/13/2019, 10:59. FINDINGS: Bones: No fractures or dislocations. Ill-defined sclerosis within the right glenoid and coracoid, as before.. Visualized ribs appear intact. Moderate periarticular osteophyte formation at the acromioclavicular and glenohumeral joints. Soft tissues: No suspicious soft tissue calcifications. IMPRESSION: 1. 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 2. Osteoarthritis. Dictated by: Lianna Bowen M.D. on 10/29/2019 at 17:18 Approved by: Lianna Bowen M.D. on 10/29/2019 at 17:19
== END ==
PROVIDERS: PCP Internal Medicine; Referring Provider Internal Medicine; Visit Provider Internal Medicine
DX: M25.511 Pain in right shoulder (principal); M19.011 Primary osteoarthritis, right shoulder; M75.91 Shoulder lesion, unspecified, right shoulder
CPT/HCPCS: 73030

== ENCOUNTER 2020-02-06 14:30 | Outpatient (RCR) | payer MEDICARE, OTHER, SELFPAY ==
--- NOTE | 2019-10-23 15:41 | PT.OIE ---
Current Diagnoses Malignant neoplasm of unspecified part of unspecified bronchus or lung (10/17/19) Malignant neoplasm of prostate (10/17/19) Past Medical History (Last Updated 07/23/19 @ 07:36 by Destiny Mckeon RN) Coronary artery disease (Chronic) Depression (Chronic) Diabetes type 2, controlled (Chronic) Erectile dysfunction (Acute) GERD (gastroesophageal reflux disease) (Acute) History of nephrolithotomy with removal of calculi (Resolved) History of pulmonary embolism (Resolved) Hyperlipidemia (Chronic) Hypertension (Chronic) Kidney stone (Resolved) Leukopenia (Chronic) Metastatic malignant neoplasm to prostate (Chronic) Neuropathy (Acute) Obstructive sleep apnea of adult (Chronic) Prostate cancer metastatic to bone (Chronic) Renal insufficiency (Chronic) Rheumatoid arthritis (Chronic) RLS (restless legs syndrome) (Acute) Small cell lung cancer (Chronic) Thrombocytopenia (Chronic) Thrombophlebitis of arm, left (Resolved) UTI (urinary tract infection) (Inactive) Past Surgical History (Last Updated 07/23/19 @ 07:35 by Destiny Mckeon RN) H/O coronary angioplasty (Resolved) H/O umbilical hernia repair (Acute) History of appendectomy (Resolved) History of cholecystectomy (Resolved) Hx of hernia repair (Acute) Hx of lithotripsy (Acute) Visit Care Team Role Provider Type Gurdeep Cameron MD Primary Care Provider Physician Specialty: Internal Medicine Address: [address] [place] [address], [id number] Email: [email or web address] Ricarda Degroot MD Attending Provider Physician Referring Provider Specialty: Oncology Address: [address] [place] [address], [id number] Email: Physical Therapy Initial Evaluation PT-OP-A Visit Information Start: 10/17/19 16:05 Freq: Status: Active Protocol: Document 10/17/19 16:05 [facility] (Rec: 10/17/19 16:30 [facility] [id number]) Out-Patient Physical Therapy Visit Information Visit Information Visit Type Initial Evaluation Visit Start Time 16:15 Visit Stop Time 17:00 Total Visit Minutes 45 Visit Number 1 Evaluation Information Evaluation Date 10/17/19 PT-OP-B Current Condition Start: 10/17/19 16:05 Freq: Status: Active Protocol: Document 10/17/19 16:05 [facility] (Rec: 10/17/19 16:30 [facility] [id number]) Current Condition History of Current Condition Onset Date 2017 Current Complaints decreased balance especially in a posterior direction History of Current Condition Prostate cancer, small cell lung cancer, 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 He had chemo and radiation to the lung 2.5 years ago Radiation 2xms a day with chemo in the middle. He hasn't been able to return to sailing which is what he loves because of his decreased balance. He also reports symptoms of cancer related fatigue that also limits his ability to go out for walks. Pt ambulated with a single point cane and his walks beside him for assistance. He also has complaints of right sided shoulder pain. Prior Treatments and Tests hx of limited stage small cell lung cancer previously treated with 4 cycles of carboplatin etoposide with consolidation radiation therapy to the chest completed in September 2017. 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 He has extreme difficulty with standing for a hour, getting into and out of the bath, putting on shoes and socks, squating, and performing light activities around his home Functional Limitations- Mobility/Gait limited to 100 feet and gets tired in his legs, is here with a single point cane and has a walker but doesn't use it. PT-OP-D Balance Start: 10/23/19 10:21 Freq: Status: Active Protocol: Document 10/17/19 16:00 [facility] (Rec: 10/23/19 11:23 [facility] [id number]) [place]send Balance Assessment Evaluation Sitting to Standing Ability Several Tries w/Hands Unsupported Stance Supervision- 2 minutes Sitting Unsupported, Feet on Floor Safely- 2 minutes Standing to Sitting Ability Assist, Use Legs on Chair Transfer Ability Safely, Hand Use Unsupported Stance- Eyes Closed 3 seconds Unsupported Stance- Eyes Open Supervision to maintain Reaching Forward Standing Supervision Needed Pick- Up Object From Floor Requires Supervision Look Behind Shoulder - Standing Supervision w/Turning Turning 360 Degrees Supervision/Verbal Cues Unsupported Stance, Alternating Feet on 4 Steps w/Supervision Stair Unsupported Tandem Stance Assist to Step-15 seconds Unilateral Leg Stance Lifts Leg/Unable to Hold Total Score Townsend Total Score (out of 56 points) 27 [place]send Impairment Rating 20 to 39% Impaired (Score 34- 44) PT-OP-G Mobility & Gait Start: 10/23/19 10:21 Freq: Status: Active Protocol: Document 10/17/19 16:00 [facility] (Rec: 10/23/19 15:18 [facility] [id number]) OP Mobility Evaluation Bed Mobility Rolling difficulty rolling but SBA Supine to and from Sit SBA Transfers Sit to Stand Needs hands to support, CGA Bed to Chair Transfers CGA, needs hands to support OP Gait Assessment Gait Gait Assistance Required: Contact Guard Assist Distance (Feet) 50 Able to Maintain Weight Bearing Status Yes During Gait Assistive Devices Assistive Device Gait Belt,Straight Cane Orthotic/Prosthetic Devices or Brace: No Gait Deviations General Gait Pattern Antalgic,Decreased Stride Length,Wide Based Gait Factors Limiting Gait Function Factors Limiting Gait Function Poor Balance Comments Gait Comments 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 affects gait the most PT-OP-K Range of Motion Start: 10/17/19 16:05 Freq: Status: Active Protocol: Document 10/17/19 16:00 [facility] (Rec: 10/23/19 15:18 [facility] [id number]) Ankle and Foot Goniometric Range of Motion Ankle and Foot Right Ankle/Foot ROM WFL No Dorsiflexion with Knee Extended 5 Left Ankle/Foot ROM WFL No Dorsiflexion with Knee Extended 5 Ankle and Foot ROM Limitations ROM Limitations Soft Tissue Tightness Comments tightness in the gastroc soleus muscle contributes to decreased ankle ROM B PT-OP-M Strength Start: 10/17/19 16:05 Freq: Status: Active Protocol: Document 10/17/19 16:00 [facility] (Rec: 10/23/19 15:18 [facility] [id number]) Ankle/Foot Strength Ankle and Foot Manual Muscle Testing Right Dorsiflexion (L4) 4 Good Plantarflexion (S1) 4 Good Inversion 4 Good Eversion (S1) 4 Good Left Dorsiflexion (L4) 4 Good Plantarflexion (S1) 4 Good Inversion 4 Good Eversion (S1) 4 Good PT-OP-Q Treatments Start: 10/17/19 16:05 Freq: Status: Active Protocol: Document 10/17/19 19:02 [facility] (Rec: 10/17/19 19:03 [facility] [id number]) Therapeutic Exercises Supine Exercises 1 Supine Exercise Name supine ankle p PT-OP-T Assessment and Plan Start: 10/17/19 16:05 Freq: Status: Active Protocol: Document 10/17/19 16:00 [facility] (Rec: 10/23/19 15:36 [facility] [id number]) Physical Therapy Assessment Goals Four Impairment poor ROM in the ankles contributing to decreased balance reactions Mixing Engineer Goal (LTG) Nahun presents with improved AROM of bilateral ankle joints and is independent with a home program for calf flexibility and ankle strengthening LTG Duration 8 weeks Three Impairment Cancer related fatigue Mixing Engineer Goal (LTG) Improve score on the FACIT fatigue scale by 8 or more points Two Impairment Antalgic gait pattern and limited walking distance to 2 blocks Mixing Engineer Goal (LTG) Nahun is able to increase his ambulation distance to 5 blocks and he is walking 3 times a weeks with his LTG Duration 8 weeks One Impairment Poor balance reactions and risk for falls Custodial Goal (LTG) Improve Townsend balance score from current score of 27 to 20 or better Assessment Summary Assessment Nahun is a 79 year old male referred to PT for chemo induced peripheral neuropathy, poor balance, limitations with gait and cancer induced fatigue. He has a past medical history of limited stage Small cell lung cancer treated with chemo and radiation therapy to the chest completed in 2017, prophylactic cranial radiation finishing in February 2018. Prostate cancer, radiation therapy to the right shoulder August 2018, PE diagnosed in 2001 Pt is present with his today, he is using a single point cane for ambulation. His reports following the radiation to his brain is when she started noticing his balance issues as well as overall fatigue. Nahun reports he has a lot of fatigue that limits his ability to get out and do things. He has a great deal of difficulty with walking any distance farther than 2 blacks and performing light activities around your home. With examination today Nahun has limited ROM of B ankles and tightness in his gastroc/ soleus complex. He is weak in his ankle DF/PF and has decreased balance reactions. He ambulates with a wide base of support most likely due to the decreased sensation in his feet. He does have complaints of right sided shoulder pain. Shoulder ROM was assessed and AROM is limited and painful at end range. He would benefit from a postural program as well as a gait and balance program to help decrease shoulder pain symptoms. Nahun is a good candidate for PT and treatment will include: Endurance training for cancer related fatigue, gait and balance training, home stretching and exercise program. Physical Therapy Plan Frequency and Duration Frequency of Treatment 2x/Week Duration of Treatment 8 Plan of Care Start Date 10/17/19 Plan of Care End Date 12/19/19 Therapeutic Interventions Therapeutic Interventions Home Exercise Program,Manual Therapy,Neuromuscular Re- education,Patient/Caregiver Education,Self-Care/Home Management,Soft Tissue Mobilization,Therapeutic Exercises Next Visit Focus/Plan Next Note Type Treatment Note Next Visit Plan Balance and gait training, ther ex for LE strengthening
--- NOTE | 2019-10-23 15:45 | PT.OPPOC ---
Physical, Occupational & Speech Therapy At [facility] Current Diagnoses Malignant neoplasm of unspecified part of unspecified bronchus or lung (10/17/19) Malignant neoplasm of prostate (10/17/19) Visit Care Team Role Provider Type Gurdeep Cameron MD Primary Care Provider Physician Specialty: Internal Medicine Address: [address] [place] [address], [id number] Email: [email or web address] Ricarda Degroot MD Attending Provider Physician Referring Provider Specialty: Oncology Address: [address] [place] [address], [id number] Email: Plan Of Care PT-OP-T Assessment and Plan Start: 10/17/19 16:05 Freq: Status: Active Protocol: Document 10/17/19 16:00 [facility] (Rec: 10/23/19 15:36 [facility] [email or web address]) Physical Therapy Assessment Goals Four Impairment poor ROM in the ankles contributing to decreased balance reactions Correction Goal (LTG) Nahun presents with improved AROM of bilateral ankle joints and is independent with a home program for calf flexibility and ankle strengthening LTG Duration 8 weeks Three Impairment Cancer related fatigue Temporary Office Assistant Goal (LTG) Improve score on the FACIT fatigue scale by 8 or more points Two Impairment Antalgic gait pattern and limited walking distance to 2 blocks Temporary Office Assistant Goal (LTG) Nahun is able to increase his ambulation distance to 5 blocks and he is walking 3 times a weeks with his LTG Duration 8 weeks One Impairment Poor balance reactions and risk for falls Correction Goal (LTG) Improve Townsend balance score from current score of 27 to 20 or better Assessment Summary Assessment Nahun is a 79 year old male referred to PT for chemo induced peripheral neuropathy, poor balance, limitations with gait and cancer induced fatigue. He has a past medical history of limited stage Small cell lung cancer treated with chemo and radiation therapy to the chest completed in 2017, prophylactic cranial radiation finishing in February 2018. Prostate cancer, radiation therapy to the right shoulder August 2018, PE diagnosed in 2001 . Pt is present with his today, he is using a single point cane for ambulation. His reports following the radiation to his brain is when she started noticing his balance issues as well as overall fatigue. Nahun reports he has a lot of fatigue that limits his ability to get out and do things. He has a great deal of difficulty with walking any distance farther than 2 blacks and performing light activities around your home. With examination today Nahun has limited ROM of B ankles and tightness in his gastroc/ soleus complex. He is weak in his ankle DF/PF and has decreased balance reactions. He ambulates with a wide base of support most likely due to the decreased sensation in his feet. He does have complaints of right sided shoulder pain. Shoulder ROM was assessed and AROM is limited and painful at end range. He would benefit from a postural program as well as a gait and balance program to help decrease shoulder pain symptoms. Nahun is a good candidate for PT and treatment will include: Endurance training for cancer related fatigue, gait and balance training, home stretching and exercise program. Physical Therapy Plan Frequency and Duration Frequency of Treatment 2x/Week Duration of Treatment 8 Plan of Care Start Date 10/17/19 Plan of Care End Date 12/19/19 Therapeutic Interventions Therapeutic Interventions Home Exercise Program,Manual Therapy,Neuromuscular Re- education,Patient/Caregiver Education,Self-Care/Home Management,Soft Tissue Mobilization,Therapeutic Exercises Next Visit Focus/Plan Next Note Type Treatment Note Next Visit Plan Balance and gait training, ther ex for LE strengthening Plan of Care Dates Plan of Care Start Date 10/17/19 Plan of Care End Date 12/19/19 Electronically Signed by: Sary Lua, PT 10/23/19 [id number] Please Sign and Return: I have reviewed this Plan of Care and certify that the skilled therapy services above are required to meet the patient?s needs. Physician Signature Date Printed Name and Credentials Clinical Instructor Signature Printed Name and Credentials
--- NOTE | 2019-11-19 17:44 | PT.OTN ---
Current Diagnoses Malignant neoplasm of unspecified part of unspecified bronchus or lung (11/19/19) Malignant neoplasm of prostate (11/19/19) Physical Therapy Treatment Note PT-OP-A Visit Information Start: 10/17/19 16:05 Freq: Status: Active Protocol: Document 11/19/19 17:32 [facility] (Rec: 11/19/19 17:44 [facility] [id number]) Out-Patient Physical Therapy Visit Information Visit Information Visit Type Treatment Note Visit Start Time 14:30 Visit Stop Time 15:15 Total Visit Minutes 45 Visit Number 3 PT-OP-B Current Condition Start: 10/17/19 16:05 Freq: Status: Active Protocol: Document 10/17/19 16:05 [facility] (Rec: 10/17/19 16:30 [facility] [id number]) Current Condition History of Current Condition Onset Date 2017 Current Complaints decreased balance especially in a posterior direction History of Current Condition Prostate cancer, small cell lung cancer, 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 He had chemo and radiation to the lung 2.5 years ago Radiation 2xms a day with chemo in the middle. He has't been able to return to sailing which is what he loves because of his decreased balance. He also reports symptoms of cancer related fatigue that also limits his ability to go out for walks. Pt ambulated with a single point cane and his walks beside him for assistance. He also has complaints of right sided shoulder pain. Prior Treatments and Tests hx of limited stage small cell lung cancer previously treated with 4 cycles of carboplatin etoposide with consolidation radiation therapy to the chest completed in September 2017. 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 He has extreme difficulty with standing for a hour, getting into and out of the bath, putting on shoes and socks, squating, and performing light activities around his home Functional Limitations- Mobility/Gait limited to 100 feet and gets tired in his legs, is here with a single point cane and has a walker but doesn't use it. PT-OP-C Subjective Start: 11/14/19 17:49 Freq: Status: Active Protocol: Document 11/19/19 17:32 [facility] (Rec: 11/19/19 17:44 [facility] [id number]) OP-PT Subjective Patient Comments Patient Comments PT's states this week Nahun has been more fatigued and had more memory loss. He did take a fall in a posterior direction landing on his tail bone. He has been tender in this area the last few days. PT-OP-D Balance Start: 10/23/19 10:21 Freq: Status: Active Protocol: Document 10/17/19 16:00 [facility] (Rec: 10/23/19 11:23 [facility] [email or web address]) Townsend Balance Assessment Evaluation Sitting to Standing Ability Several Tries w/Hands Unsupported Stance Supervision- 2 minutes Sitting Unsupported, Feet on Floor Safely- 2 minutes Standing to Sitting Ability Assist, Use Legs on Chair Transfer Ability Safely, Hand Use Unsupported Stance- Eyes Closed 3 seconds Unsupported Stance- Eyes Open Supervision to maintain Reaching Forward Standing Supervision Needed Pick- Up Object From Floor Requires Supervision Look Behind Shoulder - Standing Supervision w/Turning Turning 360 Degrees Supervision/Verbal Cues Unsupported Stance, Alternating Feet on 4 Steps w/Supervision Stair Unsupported Tandem Stance Assist to Step-15 seconds Unilateral Leg Stance Lifts Leg/Unable to Hold Total Score Townsend Total Score (out of 56 points) 27 Townsend Impairment Rating 20 to 39% Impaired (Score 34- 44) PT-OP-G Mobility & Gait Start: 10/23/19 10:21 Freq: Status: Active Protocol: Document 10/17/19 16:00 [facility] (Rec: 10/23/19 15:18 [facility] [email or web address]) OP Mobility Evaluation Bed Mobility Rolling difficulty rolling but SBA Supine to and from Sit SBA Transfers Sit to Stand Needs hands to support, CGA Bed to Chair Transfers CGA, needs hands to support OP Gait Assessment Gait Gait Assistance Required: Contact Guard Assist Distance (Feet) 50 Able to Maintain Weight Bearing Status Yes During Gait Assistive Devices Assistive Device Gait Belt,Straight Cane Orthotic/Prosthetic Devices or Brace: No Gait Deviations General Gait Pattern Antalgic,Decreased Stride Length,Wide Based Gait Factors Limiting Gait Function Factors Limiting Gait Function Poor Balance Comments Gait Comments 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 affects gait the most PT-OP-K Range of Motion Start: 10/17/19 16:05 Freq: Status: Active Protocol: Document 10/17/19 16:00 [facility] (Rec: 10/23/19 15:18 [facility] [email or web address]) Ankle and Foot Goniometric Range of Motion Ankle and Foot Right Ankle/Foot ROM WFL No Dorsiflexion with Knee Extended 5 Left Ankle/Foot ROM WFL No Dorsiflexion with Knee Extended 5 Ankle and Foot ROM Limitations ROM Limitations Soft Tissue Tightness Comments tightness in the gastroc soleus muscle contributes to decreased ankle ROM B PT-OP-M Strength Start: 10/17/19 16:05 Freq: Status: Active Protocol: Document 10/17/19 16:00 [facility] (Rec: 10/23/19 15:18 [facility] [email or web address]) Ankle/Foot Strength Ankle and Foot Manual Muscle Testing Right Dorsiflexion (L4) 4 Good Plantarflexion (S1) 4 Good Inversion 4 Good Eversion (S1) 4 Good Left Dorsiflexion (L4) 4 Good Plantarflexion (S1) 4 Good Inversion 4 Good Eversion (S1) 4 Good PT-OP-Q Treatments Start: 10/17/19 16:05 Freq: Status: Active Protocol: Document 11/19/19 17:32 [facility] (Rec: 11/19/19 17:44 [facility] [id number]) Cardio Equipment Recumbent Stepper (Sci-Fit) Duration (Minutes) 6 Resistance level 2 Gym Equipment Shuttle Balance 1 Details shuttle balance blue clips Comments feet together, feet apart, tandem stance, eyes open, eyes closed Therapeutic Exercises Supine Exercises 1 Supine Exercise Name supine ankle pumps Sitting Exercises 1 Sitting Exercise Name seated shoulder praveen exercise Reps/Minutes x 4 min Standing Exercises 5 Standing Exercise Name balance board in parallel bars Reps/Minutes x 4 min 4 Standing Exercise Name standing marches Comments in parallel bars 3 Standing Exercise Name standing shoulder extension Reps/Minutes 3 x 10 reps 2 Standing Exercise Name standing rows with level 1 theraband Reps/Minutes 3 x 10 reps 1 Standing Exercise Name standing calf raises Side bilateral Reps/Minutes x 10 reps Gait Training Gait Activity 1 Description trial of cane in left hand Comments right tandem stance much more difficult than left so I did try having the can in Nahun's left hand. this didn't work well however due to the history of a broken arm on the left side. We went back to the right hand for the cane. Increased loss of balance today with treatment PT-OP-T Assessment and Plan Start: 10/17/19 16:05 Freq: Status: Active Protocol: Document 11/19/19 17:32 [facility] (Rec: 11/19/19 17:44 [facility] [id number]) Physical Therapy Assessment Assessment Summary Assessment Nahun demonstrated increased LOB today and unsteady gait. His has been using a gait belt with him. He did sustain one fall this past week at home Physical Therapy Plan Frequency and Duration Frequency of Treatment 2x/Week Duration of Treatment 8 Plan of Care Start Date 10/17/19 Plan of Care End Date 12/19/19 Therapeutic Interventions Therapeutic Interventions Home Exercise Program,Manual Therapy,Neuromuscular Re- education,Patient/Caregiver Education,Self-Care/Home Management,Soft Tissue Mobilization,Therapeutic Exercises Next Visit Focus/Plan Next Note Type Treatment Note Next Visit Plan continue to work on balance and gait training, UE ROM and posture
--- NOTE | 2019-11-21 17:47 | PT.OTN ---
Current Diagnoses Malignant neoplasm of unspecified part of unspecified bronchus or lung (11/21/19) Malignant neoplasm of prostate (11/21/19) Physical Therapy Treatment Note PT-OP-A Visit Information Start: 10/17/19 16:05 Freq: Status: Active Protocol: Document 11/21/19 14:40 [facility] (Rec: 11/21/19 14:44 [facility] [id number]) Out-Patient Physical Therapy Visit Information Visit Information Visit Type Treatment Note Visit Start Time 14:35 Visit Stop Time 15:15 Total Visit Minutes 40 Visit Number 4 PT-OP-B Current Condition Start: 10/17/19 16:05 Freq: Status: Active Protocol: Document 10/17/19 16:05 [facility] (Rec: 10/17/19 16:30 [facility] [id number]) Current Condition History of Current Condition Onset Date 2017 Current Complaints decreased balance especially in a posterior direction History of Current Condition Prostate cancer, small cell lung cancer, 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 He had chemo and radiation to the lung 2.5 years ago Radiation 2xms a day with chemo in the middle. He has't been able to return to sailing which is what he loves because of his decreased balance. He also reports symptoms of cancer related fatigue that also limits his ability to go out for walks. Pt ambulated with a single point cane and his walks beside him for assistance. He also has complaints of right sided shoulder pain. Prior Treatments and Tests hx of limited stage small cell lung cancer previously treated with 4 cycles of carboplatin etoposide with consolidation radiation therapy to the chest completed in September 2017. 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 He has extreme difficulty with standing for a hour, getting into and out of the bath, putting on shoes and socks, squating, and performing light activities around his home Functional Limitations- Mobility/Gait limited to 100 feet and gets tired in his legs, is here with a single point cane and has a walker but doesn't use it. PT-OP-C Subjective Start: 11/14/19 17:49 Freq: Status: Active Protocol: Document 11/21/19 14:40 [facility] (Rec: 11/21/19 14:44 [facility] [id number]) OP-PT Subjective Patient Comments Patient Comments pt reports he was very fatigued following last visit. He didn't do much the next day. PT-OP-D Balance Start: 10/23/19 10:21 Freq: Status: Active Protocol: Document 10/17/19 16:00 [facility] (Rec: 10/23/19 11:23 [facility] [email or web address]) Townsend Balance Assessment Evaluation Sitting to Standing Ability Several Tries w/Hands Unsupported Stance Supervision- 2 minutes Sitting Unsupported, Feet on Floor Safely- 2 minutes Standing to Sitting Ability Assist, Use Legs on Chair Transfer Ability Safely, Hand Use Unsupported Stance- Eyes Closed 3 seconds Unsupported Stance- Eyes Open Supervision to maintain Reaching Forward Standing Supervision Needed Pick- Up Object From Floor Requires Supervision Look Behind Shoulder - Standing Supervision w/Turning Turning 360 Degrees Supervision/Verbal Cues Unsupported Stance, Alternating Feet on 4 Steps w/Supervision Stair Unsupported Tandem Stance Assist to Step-15 seconds Unilateral Leg Stance Lifts Leg/Unable to Hold Total Score Townsend Total Score (out of 56 points) 27 Townsend Impairment Rating 20 to 39% Impaired (Score 34- 44) PT-OP-G Mobility & Gait Start: 10/23/19 10:21 Freq: Status: Active Protocol: Document 10/17/19 16:00 [facility] (Rec: 10/23/19 15:18 [facility] [email or web address]) OP Mobility Evaluation Bed Mobility Rolling difficulty rolling but SBA Supine to and from Sit SBA Transfers Sit to Stand Needs hands to support, CGA Bed to Chair Transfers CGA, needs hands to support OP Gait Assessment Gait Gait Assistance Required: Contact Guard Assist Distance (Feet) 50 Able to Maintain Weight Bearing Status Yes During Gait Assistive Devices Assistive Device Gait Belt,Straight Cane Orthotic/Prosthetic Devices or Brace: No Gait Deviations General Gait Pattern Antalgic,Decreased Stride Length,Wide Based Gait Factors Limiting Gait Function Factors Limiting Gait Function Poor Balance Comments Gait Comments 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 affects gait the most PT-OP-K Range of Motion Start: 10/17/19 16:05 Freq: Status: Active Protocol: Document 10/17/19 16:00 [facility] (Rec: 10/23/19 15:18 [facility] [email or web address]) Ankle and Foot Goniometric Range of Motion Ankle and Foot Right Ankle/Foot ROM WFL No Dorsiflexion with Knee Extended 5 Left Ankle/Foot ROM WFL No Dorsiflexion with Knee Extended 5 Ankle and Foot ROM Limitations ROM Limitations Soft Tissue Tightness Comments tightness in the gastroc soleus muscle contributes to decreased ankle ROM B PT-OP-M Strength Start: 10/17/19 16:05 Freq: Status: Active Protocol: Document 10/17/19 16:00 [facility] (Rec: 10/23/19 15:18 [facility] [email or web address]) Ankle/Foot Strength Ankle and Foot Manual Muscle Testing Right Dorsiflexion (L4) 4 Good Plantarflexion (S1) 4 Good Inversion 4 Good Eversion (S1) 4 Good Left Dorsiflexion (L4) 4 Good Plantarflexion (S1) 4 Good Inversion 4 Good Eversion (S1) 4 Good PT-OP-Q Treatments Start: 10/17/19 16:05 Freq: Status: Active Protocol: Document 11/21/19 17:42 [facility] (Rec: 11/21/19 17:47 [facility] [email or web address]) Cardio Equipment Recumbent Stepper (Sci-Fit) Duration (Minutes) 6 Resistance level 2 Gym Equipment Shuttle Balance 1 Details shuttle balance red clips Comments feet together, feet apart, tandem stance, eyes open, eyes closed Therapeutic Exercises Sitting Exercises 1 Sitting Exercise Name seated shoulder praveen exercise Reps/Minutes x 4 min Standing Exercises 4 Standing Exercise Name standing marches Comments in parallel bars 1 Standing Exercise Name standing calf raises Side bilateral Reps/Minutes x 10 reps Neuro Re-Education Treatment Balance Activities 3 Details side steps in the parallel bar Comments 4 xms down and back 2 Details steps over green hurdles Reps/Duration x 10 reps PT-OP-T Assessment and Plan Start: 10/17/19 16:05 Freq: Status: Active Protocol: Document 11/21/19 17:42 [facility] (Rec: 11/21/19 17:47 [facility] [email or web address]) Physical Therapy Assessment Assessment Summary Assessment pt able to move to red clips today on balance board, needs support with gait belt but liked the challenge of the red clips. Physical Therapy Plan Frequency and Duration Frequency of Treatment 2x/Week Duration of Treatment 8 Plan of Care Start Date 10/17/19 Plan of Care End Date 12/19/19
--- NOTE | 2019-11-26 11:52 | PT.OTN ---
Current Diagnoses Malignant neoplasm of unspecified part of unspecified bronchus or lung (11/26/19) Malignant neoplasm of prostate (11/26/19) Physical Therapy Treatment Note PT-OP-A Visit Information Start: 10/17/19 16:05 Freq: Status: Active Protocol: Document 11/26/19 11:46 [facility] (Rec: 11/26/19 11:52 [facility] [id number]) Out-Patient Physical Therapy Visit Information Visit Information Visit Type Treatment Note Visit Start Time 10:35 Visit Stop Time 11:15 Total Visit Minutes 40 Visit Number 5 PT-OP-B Current Condition Start: 10/17/19 16:05 Freq: Status: Active Protocol: Document 10/17/19 16:05 [facility] (Rec: 10/17/19 16:30 [facility] [id number]) Current Condition History of Current Condition Onset Date 2017 Current Complaints decreased balance especially in a posterior direction History of Current Condition Prostate cancer, small cell lung cancer, 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 He had chemo and radiation to the lung 2.5 years ago Radiation 2xms a day with chemo in the middle. He has't been able to return to sailing which is what he loves because of his decreased balance. He also reports symptoms of cancer related fatigue that also limits his ability to go out for walks. Pt ambulated with a single point cane and his walks beside him for assistance. He also has complaints of right sided shoulder pain. Prior Treatments and Tests hx of limited stage small cell lung cancer previously treated with 4 cycles of carboplatin etoposide with consolidation radiation therapy to the chest completed in September 2017. 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 He has extreme difficulty with standing for a hour, getting into and out of the bath, putting on shoes and socks, squating, and performing light activities around his home Functional Limitations- Mobility/Gait limited to 100 feet and gets tired in his legs, is here with a single point cane and has a walker but doesn't use it. PT-OP-C Subjective Start: 11/14/19 17:49 Freq: Status: Active Protocol: Document 11/26/19 11:46 [facility] (Rec: 11/26/19 11:52 [facility] [id number]) OP-PT Subjective Patient Comments Patient Comments Pt's notes that Nahun has been very fatigued and that his low back has been sore PT-OP-D Balance Start: 10/23/19 10:21 Freq: Status: Active Protocol: Document 10/17/19 16:00 [facility] (Rec: 10/23/19 11:23 [facility] [email or web address]) [place] Balance Assessment Evaluation Sitting to Standing Ability Several Tries w/Hands Unsupported Stance Supervision- 2 minutes Sitting Unsupported, Feet on Floor Safely- 2 minutes Standing to Sitting Ability Assist, Use Legs on Chair Transfer Ability Safely, Hand Use Unsupported Stance- Eyes Closed 3 seconds Unsupported Stance- Eyes Open Supervision to maintain Reaching Forward Standing Supervision Needed Pick- Up Object From Floor Requires Supervision Look Behind Shoulder - Standing Supervision w/Turning Turning 360 Degrees Supervision/Verbal Cues Unsupported Stance, Alternating Feet on 4 Steps w/Supervision Stair Unsupported Tandem Stance Assist to Step-15 seconds Unilateral Leg Stance Lifts Leg/Unable to Hold Total Score [place] Total Score (out of 56 points) 27 [place] Impairment Rating 20 to 39% Impaired (Score 34- 44) PT-OP-G Mobility & Gait Start: 10/23/19 10:21 Freq: Status: Active Protocol: Document 10/17/19 16:00 [facility] (Rec: 10/23/19 15:18 [facility] [email or web address]) OP Mobility Evaluation Bed Mobility Rolling difficulty rolling but SBA Supine to and from Sit SBA Transfers Sit to Stand Needs hands to support, CGA Bed to Chair Transfers CGA, needs hands to support OP Gait Assessment Gait Gait Assistance Required: Contact Guard Assist Distance (Feet) 50 Able to Maintain Weight Bearing Status Yes During Gait Assistive Devices Assistive Device Gait Belt,Straight Cane Orthotic/Prosthetic Devices or Brace: No Gait Deviations General Gait Pattern Antalgic,Decreased Stride Length,Wide Based Gait Factors Limiting Gait Function Factors Limiting Gait Function Poor Balance Comments Gait Comments 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 affects gait the most PT-OP-K Range of Motion Start: 10/17/19 16:05 Freq: Status: Active Protocol: Document 10/17/19 16:00 [facility] (Rec: 10/23/19 15:18 [facility] [email or web address]) Ankle and Foot Goniometric Range of Motion Ankle and Foot Right Ankle/Foot ROM WFL No Dorsiflexion with Knee Extended 5 Left Ankle/Foot ROM WFL No Dorsiflexion with Knee Extended 5 Ankle and Foot ROM Limitations ROM Limitations Soft Tissue Tightness Comments tightness in the gastroc soleus muscle contributes to decreased ankle ROM B PT-OP-M Strength Start: 10/17/19 16:05 Freq: Status: Active Protocol: Document 10/17/19 16:00 [facility] (Rec: 10/23/19 15:18 [facility] [email or web address]) Ankle/Foot Strength Ankle and Foot Manual Muscle Testing Right Dorsiflexion (L4) 4 Good Plantarflexion (S1) 4 Good Inversion 4 Good Eversion (S1) 4 Good Left Dorsiflexion (L4) 4 Good Plantarflexion (S1) 4 Good Inversion 4 Good Eversion (S1) 4 Good PT-OP-Q Treatments Start: 10/17/19 16:05 Freq: Status: Active Protocol: Document 11/26/19 11:46 [facility] (Rec: 11/26/19 11:52 [facility] [id number]) Cardio Equipment Recumbent Elliptical (Biodex) Duration (Minutes) 6 Resistance 2 Gym Equipment Shuttle Recovery Bilateral Squats Details 50# Reps/Time 3 x 10 reps Therapeutic Exercises Sitting Exercises seated theraband rows Sitting Exercise Name seated theraband rows Reps/Minutes 2 x 10 reps 1 Sitting Exercise Name seated shoulder praveen exercise Reps/Minutes x 4 min Neuro Re-Education Treatment Balance Activities 2 Details steps over green hurdles Reps/Duration x 10 reps Self-Care/Home Management Treatment Education Patient Education Home Exercise Program,Pain Management Other Education pt and shown how to use a theracane to reduce tension in the upper neck and shoulders. Nahun really liked this release and it helped him with his rows. PT-OP-T Assessment and Plan Start: 10/17/19 16:05 Freq: Status: Active Protocol: Document 11/26/19 11:46 [facility] (Rec: 11/26/19 11:52 [facility] [id number]) Physical Therapy Assessment Assessment Summary Assessment pt was hurting today and he had fallen at home last week landing on his tailbone. My guess is that his low back has tightened up due to this. I talked to both Nahun and his about using a walker for increased support. He was having upper trapezius pain and I introduced him to the theracane. He really liked this for trigger point release in his upper trapezius and it helped him not have pain with his rows. Physical Therapy Plan Frequency and Duration Frequency of Treatment 2x/Week Duration of Treatment 8 Plan of Care Start Date 10/17/19 Plan of Care End Date 12/19/19 Therapeutic Interventions Therapeutic Interventions Home Exercise Program,Manual Therapy,Neuromuscular Re- education,Patient/Caregiver Education,Self-Care/Home Management,Soft Tissue Mobilization,Therapeutic Exercises Next Visit Focus/Plan Next Note Type Treatment Note Next Visit Plan return to the shuttle balance and all balance exercises
--- NOTE | 2019-11-28 12:50 | PT.OTN ---
Current Diagnoses Malignant neoplasm of unspecified part of unspecified bronchus or lung (11/28/19) Malignant neoplasm of prostate (11/28/19) Physical Therapy Treatment Note PT-OP-A Visit Information Start: 10/17/19 16:05 Freq: Status: Active Protocol: Document 11/28/19 12:45 [facility] (Rec: 11/28/19 12:50 [facility] [id number]) Out-Patient Physical Therapy Visit Information Visit Information Visit Type Treatment Note Visit Start Time 10:30 Visit Stop Time 11:15 Total Visit Minutes 45 Visit Number 6 PT-OP-B Current Condition Start: 10/17/19 16:05 Freq: Status: Active Protocol: Document 10/17/19 16:05 [facility] (Rec: 10/17/19 16:30 [facility] [id number]) Current Condition History of Current Condition Onset Date 2017 Current Complaints decreased balance especially in a posterior direction History of Current Condition Prostate cancer, small cell lung cancer, 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 He had chemo and radiation to the lung 2.5 years ago Radiation 2xms a day with chemo in the middle. He has't been able to return to sailing which is what he loves because of his decreased balance. He also reports symptoms of cancer related fatigue that also limits his ability to go out for walks. Pt ambulated with a single point cane and his walks beside him for assistance. He also has complaints of right sided shoulder pain. Prior Treatments and Tests hx of limited stage small cell lung cancer previously treated with 4 cycles of carboplatin etoposide with consolidation radiation therapy to the chest completed in September 2017. 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 He has extreme difficulty with standing for a hour, getting into and out of the bath, putting on shoes and socks, squating, and performing light activities around his home Functional Limitations- Mobility/Gait limited to 100 feet and gets tired in his legs, is here with a single point cane and has a walker but doesn't use it. PT-OP-C Subjective Start: 11/14/19 17:49 Freq: Status: Active Protocol: Document 11/28/19 12:45 [facility] (Rec: 11/28/19 12:50 [facility] [id number]) OP-PT Subjective Patient Comments Patient Comments pt's state Nahun was has been really sore in his shoulders and fatigued. He does have a walker with him today PT-OP-D Balance Start: 10/23/19 10:21 Freq: Status: Active Protocol: Document 10/17/19 16:00 [facility] (Rec: 10/23/19 11:23 [facility] [email or web address]) [place] Balance Assessment Evaluation Sitting to Standing Ability Several Tries w/Hands Unsupported Stance Supervision- 2 minutes Sitting Unsupported, Feet on Floor Safely- 2 minutes Standing to Sitting Ability Assist, Use Legs on Chair Transfer Ability Safely, Hand Use Unsupported Stance- Eyes Closed 3 seconds Unsupported Stance- Eyes Open Supervision to maintain Reaching Forward Standing Supervision Needed Pick- Up Object From Floor Requires Supervision Look Behind Shoulder - Standing Supervision w/Turning Turning 360 Degrees Supervision/Verbal Cues Unsupported Stance, Alternating Feet on 4 Steps w/Supervision Stair Unsupported Tandem Stance Assist to Step-15 seconds Unilateral Leg Stance Lifts Leg/Unable to Hold Total Score [place] Total Score (out of 56 points) 27 [place] Impairment Rating 20 to 39% Impaired (Score 34- 44) PT-OP-G Mobility & Gait Start: 10/23/19 10:21 Freq: Status: Active Protocol: Document 10/17/19 16:00 [facility] (Rec: 10/23/19 15:18 [facility] [email or web address]) OP Mobility Evaluation Bed Mobility Rolling difficulty rolling but SBA Supine to and from Sit SBA Transfers Sit to Stand Needs hands to support, CGA Bed to Chair Transfers CGA, needs hands to support OP Gait Assessment Gait Gait Assistance Required: Contact Guard Assist Distance (Feet) 50 Able to Maintain Weight Bearing Status Yes During Gait Assistive Devices Assistive Device Gait Belt,Straight Cane Orthotic/Prosthetic Devices or Brace: No Gait Deviations General Gait Pattern Antalgic,Decreased Stride Length,Wide Based Gait Factors Limiting Gait Function Factors Limiting Gait Function Poor Balance Comments Gait Comments 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 affects gait the most PT-OP-K Range of Motion Start: 10/17/19 16:05 Freq: Status: Active Protocol: Document 10/17/19 16:00 [facility] (Rec: 10/23/19 15:18 [facility] [email or web address]) Ankle and Foot Goniometric Range of Motion Ankle and Foot Right Ankle/Foot ROM WFL No Dorsiflexion with Knee Extended 5 Left Ankle/Foot ROM WFL No Dorsiflexion with Knee Extended 5 Ankle and Foot ROM Limitations ROM Limitations Soft Tissue Tightness Comments tightness in the gastroc soleus muscle contributes to decreased ankle ROM B PT-OP-M Strength Start: 10/17/19 16:05 Freq: Status: Active Protocol: Document 10/17/19 16:00 [facility] (Rec: 10/23/19 15:18 [facility] [email or web address]) Ankle/Foot Strength Ankle and Foot Manual Muscle Testing Right Dorsiflexion (L4) 4 Good Plantarflexion (S1) 4 Good Inversion 4 Good Eversion (S1) 4 Good Left Dorsiflexion (L4) 4 Good Plantarflexion (S1) 4 Good Inversion 4 Good Eversion (S1) 4 Good PT-OP-Q Treatments Start: 10/17/19 16:05 Freq: Status: Active Protocol: Document 11/28/19 12:45 [facility] (Rec: 11/28/19 12:50 [facility] [id number]) Gym Equipment Shuttle Balance 1 Details shuttle balance red clips Comments feet together, feet apart, tandem stance, eyes open, eyes closed Therapeutic Exercises Standing Exercises step ups Standing Exercise Name step ups Comments in parallel bars standing toe taps Standing Exercise Name toe taps on 6 step Reps/Minutes x 1 min Comments in parallel bars side steps Standing Exercise Name side steps in parallel bars 5 Standing Exercise Name balance board in parallel bars Reps/Minutes x 4 min 4 Standing Exercise Name standing marches Comments in parallel bars 1 Standing Exercise Name standing calf raises Side bilateral Reps/Minutes x 10 reps Neuro Re-Education Treatment Balance Activities 3 Details side steps in the parallel bar Comments 4 xms down and back 1 Details balance board Comments anterior/posterior sways on the balance board PT-OP-T Assessment and Plan Start: 10/17/19 16:05 Freq: Status: Active Protocol: Document 11/28/19 12:45 [facility] (Rec: 11/28/19 12:50 [facility] [id number]) Physical Therapy Assessment Assessment Summary Assessment Nahun was much more stable today with the walker. He seemed to have more energy. I emphasized the walker for home instead of the cane to reduce fatigue and improve stability Physical Therapy Plan Frequency and Duration Frequency of Treatment 2x/Week Duration of Treatment 8 Plan of Care Start Date 10/17/19 Plan of Care End Date 12/19/19 Next Visit Focus/Plan Next Note Type Treatment Note Next Visit Plan return to the shuttle balance and all balance exercises
--- NOTE | 2019-12-03 18:11 | PT.OTN ---
Current Diagnoses Malignant neoplasm of unspecified part of unspecified bronchus or lung (12/03/19) Malignant neoplasm of prostate (12/03/19) Physical Therapy Treatment Note PT-OP-A Visit Information Start: 10/17/19 16:05 Freq: Status: Active Protocol: Document 12/03/19 15:13 [facility] (Rec: 12/03/19 15:14 [facility] [email or web address]) Out-Patient Physical Therapy Visit Information Visit Information Visit Type Treatment Note Visit Start Time 15:15 Visit Stop Time 16:00 Total Visit Minutes 45 Visit Number 7 Evaluation Information Evaluation Date 10/17/19 PT-OP-B Current Condition Start: 10/17/19 16:05 Freq: Status: Active Protocol: Document 10/17/19 16:05 [facility] (Rec: 10/17/19 16:30 [facility] [id number]) Current Condition History of Current Condition Onset Date 2017 Current Complaints decreased balance especially in a posterior direction History of Current Condition Prostate cancer, small cell lung cancer, 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 He had chemo and radiation to the lung 2.5 years ago Radiation 2xms a day with chemo in the middle. He has't been able to return to sailing which is what he loves because of his decreased balance. He also reports symptoms of cancer related fatigue that also limits his ability to go out for walks. Pt ambulated with a single point cane and his walks beside him for assistance. He also has complaints of right sided shoulder pain. Prior Treatments and Tests hx of limited stage small cell lung cancer previously treated with 4 cycles of carboplatin etoposide with consolidation radiation therapy to the chest completed in September 2017. 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 He has extreme difficulty with standing for a hour, getting into and out of the bath, putting on shoes and socks, squating, and performing light activities around his home Functional Limitations- Mobility/Gait limited to 100 feet and gets tired in his legs, is here with a single point cane and has a walker but doesn't use it. PT-OP-C Subjective Start: 11/14/19 17:49 Freq: Status: Active Protocol: Document 12/03/19 18:09 [facility] (Rec: 12/03/19 18:11 [facility] [id number]) OP-PT Subjective Patient Comments Patient Comments pt reports he has been very fatigued and has had increased shoulder pain PT-OP-D Balance Start: 10/23/19 10:21 Freq: Status: Active Protocol: Document 10/17/19 16:00 [facility] (Rec: 10/23/19 11:23 [facility] [email or web address]) [place] Balance Assessment Evaluation Sitting to Standing Ability Several Tries w/Hands Unsupported Stance Supervision- 2 minutes Sitting Unsupported, Feet on Floor Safely- 2 minutes Standing to Sitting Ability Assist, Use Legs on Chair Transfer Ability Safely, Hand Use Unsupported Stance- Eyes Closed 3 seconds Unsupported Stance- Eyes Open Supervision to maintain Reaching Forward Standing Supervision Needed Pick- Up Object From Floor Requires Supervision Look Behind Shoulder - Standing Supervision w/Turning Turning 360 Degrees Supervision/Verbal Cues Unsupported Stance, Alternating Feet on 4 Steps w/Supervision Stair Unsupported Tandem Stance Assist to Step-15 seconds Unilateral Leg Stance Lifts Leg/Unable to Hold Total Score [place] Total Score (out of 56 points) 27 [place] Impairment Rating 20 to 39% Impaired (Score 34- 44) PT-OP-G Mobility & Gait Start: 10/23/19 10:21 Freq: Status: Active Protocol: Document 10/17/19 16:00 [facility] (Rec: 10/23/19 15:18 [facility] [email or web address]) OP Mobility Evaluation Bed Mobility Rolling difficulty rolling but SBA Supine to and from Sit SBA Transfers Sit to Stand Needs hands to support, CGA Bed to Chair Transfers CGA, needs hands to support OP Gait Assessment Gait Gait Assistance Required: Contact Guard Assist Distance (Feet) 50 Able to Maintain Weight Bearing Status Yes During Gait Assistive Devices Assistive Device Gait Belt,Straight Cane Orthotic/Prosthetic Devices or Brace: No Gait Deviations General Gait Pattern Antalgic,Decreased Stride Length,Wide Based Gait Factors Limiting Gait Function Factors Limiting Gait Function Poor Balance Comments Gait Comments 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 affects gait the most PT-OP-K Range of Motion Start: 10/17/19 16:05 Freq: Status: Active Protocol: Document 10/17/19 16:00 [facility] (Rec: 10/23/19 15:18 [facility] [email or web address]) Ankle and Foot Goniometric Range of Motion Ankle and Foot Right Ankle/Foot ROM WFL No Dorsiflexion with Knee Extended 5 Left Ankle/Foot ROM WFL No Dorsiflexion with Knee Extended 5 Ankle and Foot ROM Limitations ROM Limitations Soft Tissue Tightness Comments tightness in the gastroc soleus muscle contributes to decreased ankle ROM B PT-OP-M Strength Start: 10/17/19 16:05 Freq: Status: Active Protocol: Document 10/17/19 16:00 [facility] (Rec: 10/23/19 15:18 [facility] [email or web address]) Ankle/Foot Strength Ankle and Foot Manual Muscle Testing Right Dorsiflexion (L4) 4 Good Plantarflexion (S1) 4 Good Inversion 4 Good Eversion (S1) 4 Good Left Dorsiflexion (L4) 4 Good Plantarflexion (S1) 4 Good Inversion 4 Good Eversion (S1) 4 Good PT-OP-Q Treatments Start: 10/17/19 16:05 Freq: Status: Active Protocol: Document 12/03/19 18:09 [facility] (Rec: 12/03/19 18:11 [facility] [id number]) Cardio Equipment Recumbent Stepper (Sci-Fit) Duration (Minutes) 6 Resistance level 2 Gym Equipment Shuttle Recovery Bilateral Squats Details 50# Reps/Time 3 x 10 reps Therapeutic Exercises Sitting Exercises seated theraband rows Sitting Exercise Name seated theraband rows Reps/Minutes 2 x 10 reps Standing Exercises step ups Standing Exercise Name step ups Comments in parallel bars standing toe taps Standing Exercise Name toe taps on 6 step Reps/Minutes x 1 min Comments in parallel bars side steps Standing Exercise Name side steps in parallel bars 5 Standing Exercise Name balance board in parallel bars Reps/Minutes x 4 min 4 Standing Exercise Name standing marches Comments in parallel bars 1 Standing Exercise Name standing calf raises Side bilateral Reps/Minutes x 10 reps PT-OP-T Assessment and Plan Start: 10/17/19 16:05 Freq: Status: Active Protocol: Document 12/03/19 18:09 [facility] (Rec: 12/03/19 18:11 [facility] [id number]) Physical Therapy Assessment Assessment Summary Assessment Nahun doing better with his walker, per his he is becomming more fatigued and painful at home. Physical Therapy Plan Frequency and Duration Frequency of Treatment 2x/Week Duration of Treatment 8 Plan of Care Start Date 10/17/19 Plan of Care End Date 12/19/19 Next Visit Focus/Plan Next Note Type Treatment Note Next Visit Plan return to the shuttle balance and all balance exercises
--- NOTE | 2019-12-05 14:32 | PT.OTN ---
Current Diagnoses Malignant neoplasm of unspecified part of unspecified bronchus or lung (12/05/19) Malignant neoplasm of prostate (12/05/19) Physical Therapy Treatment Note PT-OP-A Visit Information Start: 10/17/19 16:05 Freq: Status: Active Protocol: Document 12/05/19 13:58 [facility] (Rec: 12/05/19 14:32 [facility] [id number]) Out-Patient Physical Therapy Visit Information Visit Information Visit Type Treatment Note Visit Start Time 13:45 Visit Stop Time 14:30 Total Visit Minutes 45 Visit Number 8 PT-OP-B Current Condition Start: 10/17/19 16:05 Freq: Status: Active Protocol: Document 10/17/19 16:05 [facility] (Rec: 10/17/19 16:30 [facility] [id number]) Current Condition History of Current Condition Onset Date 2017 Current Complaints decreased balance especially in a posterior direction History of Current Condition Prostate cancer, small cell lung cancer, 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 He had chemo and radiation to the lung 2.5 years ago Radiation 2xms a day with chemo in the middle. He has't been able to return to sailing which is what he loves because of his decreased balance. He also reports symptoms of cancer related fatigue that also limits his ability to go out for walks. Pt ambulated with a single point cane and his walks beside him for assistance. He also has complaints of right sided shoulder pain. Prior Treatments and Tests hx of limited stage small cell lung cancer previously treated with 4 cycles of carboplatin etoposide with consolidation radiation therapy to the chest completed in September 2017. 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 He has extreme difficulty with standing for a hour, getting into and out of the bath, putting on shoes and socks, squating, and performing light activities around his home Functional Limitations- Mobility/Gait limited to 100 feet and gets tired in his legs, is here with a single point cane and has a walker but doesn't use it. PT-OP-C Subjective Start: 11/14/19 17:49 Freq: Status: Active Protocol: Document 12/05/19 13:58 [facility] (Rec: 12/05/19 14:32 [facility] [id number]) OP-PT Subjective Patient Comments Patient Comments Patient reports he has still beel feeling quite a bit of fatigue. PT-OP-D Balance Start: 10/23/19 10:21 Freq: Status: Active Protocol: Document 10/17/19 16:00 [facility] (Rec: 10/23/19 11:23 [facility] [email or web address]) [place] Balance Assessment Evaluation Sitting to Standing Ability Several Tries w/Hands Unsupported Stance Supervision- 2 minutes Sitting Unsupported, Feet on Floor Safely- 2 minutes Standing to Sitting Ability Assist, Use Legs on Chair Transfer Ability Safely, Hand Use Unsupported Stance- Eyes Closed 3 seconds Unsupported Stance- Eyes Open Supervision to maintain Reaching Forward Standing Supervision Needed Pick- Up Object From Floor Requires Supervision Look Behind Shoulder - Standing Supervision w/Turning Turning 360 Degrees Supervision/Verbal Cues Unsupported Stance, Alternating Feet on 4 Steps w/Supervision Stair Unsupported Tandem Stance Assist to Step-15 seconds Unilateral Leg Stance Lifts Leg/Unable to Hold Total Score [place] Total Score (out of 56 points) 27 [place] Impairment Rating 20 to 39% Impaired (Score 34- 44) PT-OP-G Mobility & Gait Start: 10/23/19 10:21 Freq: Status: Active Protocol: Document 10/17/19 16:00 [facility] (Rec: 10/23/19 15:18 [facility] [email or web address]) OP Mobility Evaluation Bed Mobility Rolling difficulty rolling but SBA Supine to and from Sit SBA Transfers Sit to Stand Needs hands to support, CGA Bed to Chair Transfers CGA, needs hands to support OP Gait Assessment Gait Gait Assistance Required: Contact Guard Assist Distance (Feet) 50 Able to Maintain Weight Bearing Status Yes During Gait Assistive Devices Assistive Device Gait Belt,Straight Cane Orthotic/Prosthetic Devices or Brace: No Gait Deviations General Gait Pattern Antalgic,Decreased Stride Length,Wide Based Gait Factors Limiting Gait Function Factors Limiting Gait Function Poor Balance Comments Gait Comments 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 affects gait the most PT-OP-K Range of Motion Start: 10/17/19 16:05 Freq: Status: Active Protocol: Document 10/17/19 16:00 [facility] (Rec: 10/23/19 15:18 [facility] [email or web address]) Ankle and Foot Goniometric Range of Motion Ankle and Foot Right Ankle/Foot ROM WFL No Dorsiflexion with Knee Extended 5 Left Ankle/Foot ROM WFL No Dorsiflexion with Knee Extended 5 Ankle and Foot ROM Limitations ROM Limitations Soft Tissue Tightness Comments tightness in the gastroc soleus muscle contributes to decreased ankle ROM B PT-OP-M Strength Start: 10/17/19 16:05 Freq: Status: Active Protocol: Document 10/17/19 16:00 [facility] (Rec: 10/23/19 15:18 [facility] [email or web address]) Ankle/Foot Strength Ankle and Foot Manual Muscle Testing Right Dorsiflexion (L4) 4 Good Plantarflexion (S1) 4 Good Inversion 4 Good Eversion (S1) 4 Good Left Dorsiflexion (L4) 4 Good Plantarflexion (S1) 4 Good Inversion 4 Good Eversion (S1) 4 Good PT-OP-Q Treatments Start: 10/17/19 16:05 Freq: Status: Active Protocol: Document 12/05/19 13:58 [facility] (Rec: 12/05/19 14:32 [facility] [id number]) Cardio Equipment Recumbent Bicycle Duration (Minutes) 5 Resistance 1 Gym Equipment Shuttle Recovery Bilateral Squats Details 50# Reps/Time 3 x 10 reps Therapeutic Exercises Sitting Exercises seated theraband rows Sitting Exercise Name seated theraband rows Reps/Minutes 2 x 10 reps Standing Exercises step ups Standing Exercise Name step ups Comments in parallel bars standing toe taps Standing Exercise Name toe taps on 6 step Reps/Minutes x 1 min Comments in parallel bars side steps Standing Exercise Name side steps in parallel bars 5 Standing Exercise Name balance board in parallel bars Reps/Minutes x 4 min 4 Standing Exercise Name standing marches Comments in parallel bars 1 Standing Exercise Name standing calf raises Side bilateral Reps/Minutes x 10 reps PT-OP-T Assessment and Plan Start: 10/17/19 16:05 Freq: Status: Active Protocol: Document 12/05/19 13:58 [facility] (Rec: 12/05/19 14:32 [facility] [id number]) Physical Therapy Assessment Assessment Summary Assessment Pt losing balance in a posterior direction especially when turning. Still able to complete his exercise but very fatigued today. He has had a few episodes with choking on liquid. Physical Therapy Plan Frequency and Duration Frequency of Treatment 2x/Week Duration of Treatment 8 Plan of Care Start Date 10/17/19 Plan of Care End Date 12/19/19 Therapeutic Interventions Therapeutic Interventions Home Exercise Program,Manual Therapy,Neuromuscular Re- education,Patient/Caregiver Education,Self-Care/Home Management,Soft Tissue Mobilization,Therapeutic Exercises Next Visit Focus/Plan Next Note Type Treatment Note Next Visit Plan return to the shuttle balance and all balance exercises
--- NOTE | 2019-12-10 17:41 | PT.OTN ---
Current Diagnoses Malignant neoplasm of unspecified part of unspecified bronchus or lung (12/10/19) Malignant neoplasm of prostate (12/10/19) Physical Therapy Treatment Note PT-OP-A Visit Information Start: 10/17/19 16:05 Freq: Status: Active Protocol: Document 12/10/19 17:35 [facility] (Rec: 12/10/19 17:41 [facility] [email or web address]) Out-Patient Physical Therapy Visit Information Visit Information Visit Type Treatment Note Visit Start Time 14:30 Visit Stop Time 15:15 Total Visit Minutes 45 Visit Number 9 PT-OP-B Current Condition Start: 10/17/19 16:05 Freq: Status: Active Protocol: Document 10/17/19 16:05 [facility] (Rec: 10/17/19 16:30 [facility] [id number]) Current Condition History of Current Condition Onset Date 2017 Current Complaints decreased balance especially in a posterior direction History of Current Condition Prostate cancer, small cell lung cancer, 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 He had chemo and radiation to the lung 2.5 years ago Radiation 2xms a day with chemo in the middle. He has't been able to return to sailing which is what he loves because of his decreased balance. He also reports symptoms of cancer related fatigue that also limits his ability to go out for walks. Pt ambulated with a single point cane and his walks beside him for assistance. He also has complaints of right sided shoulder pain. Prior Treatments and Tests hx of limited stage small cell lung cancer previously treated with 4 cycles of carboplatin etoposide with consolidation radiation therapy to the chest completed in September 2017. 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 He has extreme difficulty with standing for a hour, getting into and out of the bath, putting on shoes and socks, squating, and performing light activities around his home Functional Limitations- Mobility/Gait limited to 100 feet and gets tired in his legs, is here with a single point cane and has a walker but doesn't use it. PT-OP-C Subjective Start: 11/14/19 17:49 Freq: Status: Active Protocol: Document 12/10/19 17:35 [facility] (Rec: 12/10/19 17:41 [facility] [email or web address]) OP-PT Subjective Patient Comments Patient Comments Pt doing better today and has more energy. PT-OP-D Balance Start: 10/23/19 10:21 Freq: Status: Active Protocol: Document 10/17/19 16:00 [facility] (Rec: 10/23/19 11:23 [facility] [email or web address]) [place] Balance Assessment Evaluation Sitting to Standing Ability Several Tries w/Hands Unsupported Stance Supervision- 2 minutes Sitting Unsupported, Feet on Floor Safely- 2 minutes Standing to Sitting Ability Assist, Use Legs on Chair Transfer Ability Safely, Hand Use Unsupported Stance- Eyes Closed 3 seconds Unsupported Stance- Eyes Open Supervision to maintain Reaching Forward Standing Supervision Needed Pick- Up Object From Floor Requires Supervision Look Behind Shoulder - Standing Supervision w/Turning Turning 360 Degrees Supervision/Verbal Cues Unsupported Stance, Alternating Feet on 4 Steps w/Supervision Stair Unsupported Tandem Stance Assist to Step-15 seconds Unilateral Leg Stance Lifts Leg/Unable to Hold Total Score [place] Total Score (out of 56 points) 27 [place] Impairment Rating 20 to 39% Impaired (Score 34- 44) PT-OP-G Mobility & Gait Start: 10/23/19 10:21 Freq: Status: Active Protocol: Document 10/17/19 16:00 [facility] (Rec: 10/23/19 15:18 [facility] [email or web address]) OP Mobility Evaluation Bed Mobility Rolling difficulty rolling but SBA Supine to and from Sit SBA Transfers Sit to Stand Needs hands to support, CGA Bed to Chair Transfers CGA, needs hands to support OP Gait Assessment Gait Gait Assistance Required: Contact Guard Assist Distance (Feet) 50 Able to Maintain Weight Bearing Status Yes During Gait Assistive Devices Assistive Device Gait Belt,Straight Cane Orthotic/Prosthetic Devices or Brace: No Gait Deviations General Gait Pattern Antalgic,Decreased Stride Length,Wide Based Gait Factors Limiting Gait Function Factors Limiting Gait Function Poor Balance Comments Gait Comments 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 affects gait the most PT-OP-K Range of Motion Start: 10/17/19 16:05 Freq: Status: Active Protocol: Document 10/17/19 16:00 [facility] (Rec: 10/23/19 15:18 [facility] [email or web address]) Ankle and Foot Goniometric Range of Motion Ankle and Foot Right Ankle/Foot ROM WFL No Dorsiflexion with Knee Extended 5 Left Ankle/Foot ROM WFL No Dorsiflexion with Knee Extended 5 Ankle and Foot ROM Limitations ROM Limitations Soft Tissue Tightness Comments tightness in the gastroc soleus muscle contributes to decreased ankle ROM B PT-OP-M Strength Start: 10/17/19 16:05 Freq: Status: Active Protocol: Document 10/17/19 16:00 [facility] (Rec: 10/23/19 15:18 [facility] [email or web address]) Ankle/Foot Strength Ankle and Foot Manual Muscle Testing Right Dorsiflexion (L4) 4 Good Plantarflexion (S1) 4 Good Inversion 4 Good Eversion (S1) 4 Good Left Dorsiflexion (L4) 4 Good Plantarflexion (S1) 4 Good Inversion 4 Good Eversion (S1) 4 Good PT-OP-Q Treatments Start: 10/17/19 16:05 Freq: Status: Active Protocol: Document 12/10/19 17:35 [facility] (Rec: 12/10/19 17:41 [facility] [email or web address]) Cardio Equipment Recumbent Stepper (Sci-Fit) Duration (Minutes) 6 Resistance level 2 Gym Equipment Shuttle Recovery Bilateral Squats Details 50# Reps/Time 3 x 10 reps Shuttle Balance 1 Details shuttle balance red clips Comments feet together, feet apart, tandem stance, eyes open, eyes closed Therapeutic Exercises Sitting Exercises seated theraband rows Sitting Exercise Name seated theraband rows Reps/Minutes 2 x 10 reps Standing Exercises standing toe taps Standing Exercise Name toe taps on 6 step Reps/Minutes x 1 min Comments in parallel bars side steps Standing Exercise Name side steps in parallel bars 3 Standing Exercise Name seated shoulder extension Reps/Minutes 3 x 10 reps 1 Standing Exercise Name standing calf raises Side bilateral Reps/Minutes x 10 reps PT-OP-T Assessment and Plan Start: 10/17/19 16:05 Freq: Status: Active Protocol: Document 12/10/19 17:35 [facility] (Rec: 12/10/19 17:41 [facility] [email or web address]) Physical Therapy Assessment Assessment Summary Assessment Decreased c/o shoulder pain and more energy today for ADL' s Physical Therapy Plan Frequency and Duration Frequency of Treatment 2x/Week Duration of Treatment 8 Plan of Care Start Date 10/17/19 Plan of Care End Date 12/19/19 Therapeutic Interventions Therapeutic Interventions Home Exercise Program,Manual Therapy,Neuromuscular Re- education,Patient/Caregiver Education,Self-Care/Home Management,Soft Tissue Mobilization,Therapeutic Exercises Next Visit Focus/Plan Next Note Type Treatment Note Next Visit Plan Continue working on balance stabilization exercises, shoulder ROM and strengthening
--- NOTE | 2019-12-17 18:03 | PT.OTN ---
Current Diagnoses Malignant neoplasm of unspecified part of unspecified bronchus or lung (12/17/19) Malignant neoplasm of prostate (12/17/19) Physical Therapy Treatment Note PT-OP-A Visit Information Start: 10/17/19 16:05 Freq: Status: Active Protocol: Document 12/17/19 17:55 [facility] (Rec: 12/17/19 18:03 [facility] [email or web address]) Out-Patient Physical Therapy Visit Information Visit Information Visit Type Treatment Note Visit Start Time 14:30 Visit Stop Time 15:15 Total Visit Minutes 45 Visit Number 10 PT-OP-B Current Condition Start: 10/17/19 16:05 Freq: Status: Active Protocol: Document 10/17/19 16:05 [facility] (Rec: 10/17/19 16:30 [facility] [id number]) Current Condition History of Current Condition Onset Date 2017 Current Complaints decreased balance especially in a posterior direction History of Current Condition Prostate cancer, small cell lung cancer, 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 He had chemo and radiation to the lung 2.5 years ago Radiation 2xms a day with chemo in the middle. He has't been able to return to sailing which is what he loves because of his decreased balance. He also reports symptoms of cancer related fatigue that also limits his ability to go out for walks. Pt ambulated with a single point cane and his walks beside him for assistance. He also has complaints of right sided shoulder pain. Prior Treatments and Tests hx of limited stage small cell lung cancer previously treated with 4 cycles of carboplatin etoposide with consolidation radiation therapy to the chest completed in September 2017. 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 He has extreme difficulty with standing for a hour, getting into and out of the bath, putting on shoes and socks, squating, and performing light activities around his home Functional Limitations- Mobility/Gait limited to 100 feet and gets tired in his legs, is here with a single point cane and has a walker but doesn't use it. PT-OP-C Subjective Start: 11/14/19 17:49 Freq: Status: Active Protocol: Document 12/17/19 17:55 [facility] (Rec: 12/17/19 18:03 [facility] [email or web address]) OP-PT Subjective Patient Comments Patient Comments Nahun reports he is doing well today. He is trying to avoid having his elbows out to the side as this aggravates his shoulder pain PT-OP-D Balance Start: 10/23/19 10:21 Freq: Status: Active Protocol: Document 10/17/19 16:00 [facility] (Rec: 10/23/19 11:23 [facility] [email or web address]) [place] Balance Assessment Evaluation Sitting to Standing Ability Several Tries w/Hands Unsupported Stance Supervision- 2 minutes Sitting Unsupported, Feet on Floor Safely- 2 minutes Standing to Sitting Ability Assist, Use Legs on Chair Transfer Ability Safely, Hand Use Unsupported Stance- Eyes Closed 3 seconds Unsupported Stance- Eyes Open Supervision to maintain Reaching Forward Standing Supervision Needed Pick- Up Object From Floor Requires Supervision Look Behind Shoulder - Standing Supervision w/Turning Turning 360 Degrees Supervision/Verbal Cues Unsupported Stance, Alternating Feet on 4 Steps w/Supervision Stair Unsupported Tandem Stance Assist to Step-15 seconds Unilateral Leg Stance Lifts Leg/Unable to Hold Total Score [place] Total Score (out of 56 points) 27 [place] Impairment Rating 20 to 39% Impaired (Score 34- 44) PT-OP-G Mobility & Gait Start: 10/23/19 10:21 Freq: Status: Active Protocol: Document 10/17/19 16:00 [facility] (Rec: 10/23/19 15:18 [facility] [email or web address]) OP Mobility Evaluation Bed Mobility Rolling difficulty rolling but SBA Supine to and from Sit SBA Transfers Sit to Stand Needs hands to support, CGA Bed to Chair Transfers CGA, needs hands to support OP Gait Assessment Gait Gait Assistance Required: Contact Guard Assist Distance (Feet) 50 Able to Maintain Weight Bearing Status Yes During Gait Assistive Devices Assistive Device Gait Belt,Straight Cane Orthotic/Prosthetic Devices or Brace: No Gait Deviations General Gait Pattern Antalgic,Decreased Stride Length,Wide Based Gait Factors Limiting Gait Function Factors Limiting Gait Function Poor Balance Comments Gait Comments 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 affects gait the most PT-OP-K Range of Motion Start: 10/17/19 16:05 Freq: Status: Active Protocol: Document 10/17/19 16:00 [facility] (Rec: 10/23/19 15:18 [facility] [email or web address]) Ankle and Foot Goniometric Range of Motion Ankle and Foot Right Ankle/Foot ROM WFL No Dorsiflexion with Knee Extended 5 Left Ankle/Foot ROM WFL No Dorsiflexion with Knee Extended 5 Ankle and Foot ROM Limitations ROM Limitations Soft Tissue Tightness Comments tightness in the gastroc soleus muscle contributes to decreased ankle ROM B PT-OP-M Strength Start: 10/17/19 16:05 Freq: Status: Active Protocol: Document 10/17/19 16:00 [facility] (Rec: 10/23/19 15:18 [facility] [email or web address]) Ankle/Foot Strength Ankle and Foot Manual Muscle Testing Right Dorsiflexion (L4) 4 Good Plantarflexion (S1) 4 Good Inversion 4 Good Eversion (S1) 4 Good Left Dorsiflexion (L4) 4 Good Plantarflexion (S1) 4 Good Inversion 4 Good Eversion (S1) 4 Good PT-OP-Q Treatments Start: 10/17/19 16:05 Freq: Status: Active Protocol: Document 12/17/19 17:55 [facility] (Rec: 12/17/19 18:03 [facility] [email or web address]) Cardio Equipment Recumbent Elliptical (Biodex) Duration (Minutes) 5 Resistance 1 Gym Equipment Shuttle Balance 1 Details shuttle balance red clips Comments feet together, feet apart, tandem stance, eyes open, eyes closed Therapeutic Exercises Sitting Exercises seated shoulder ER Sitting Exercise Name seated shoulder ER Reps/Minutes 2 x 10 reps seated shoulder Sitting Exercise Name seated shoulder pulleys seated theraband rows Sitting Exercise Name seated theraband rows Reps/Minutes 2 x 10 reps 1 Sitting Exercise Name shoulder praveen Reps/Minutes x 4 min Standing Exercises step ups Standing Exercise Name step ups Comments in parallel bars standing toe taps Standing Exercise Name toe taps on 6 step Reps/Minutes x 1 min Comments in parallel bars side steps Standing Exercise Name side steps in parallel bars 4 Standing Exercise Name standing marches Comments in parallel bars 3 Standing Exercise Name seated shoulder extension Reps/Minutes 3 x 10 reps 1 Standing Exercise Name standing calf raises Side bilateral Reps/Minutes x 10 reps PT-OP-T Assessment and Plan Start: 10/17/19 16:05 Freq: Status: Active Protocol: Document 12/17/19 17:55 [facility] (Rec: 12/17/19 18:03 [facility] [email or web address]) Physical Therapy Assessment Assessment Summary Assessment Pt did well today with both balance and strength exercises today. He tends to lose his balance in a posterior direction. Physical Therapy Plan Frequency and Duration Frequency of Treatment 2x/Week Duration of Treatment 8 Plan of Care Start Date 10/17/19 Plan of Care End Date 12/19/19 Next Visit Focus/Plan Next Note Type Treatment Note Next Visit Plan Continue working on balance stabilization exercises, shoulder ROM and strengthening
--- NOTE | 2019-12-19 12:13 | PT.OTN ---
Current Diagnoses Malignant neoplasm of unspecified part of unspecified bronchus or lung (12/19/19) Malignant neoplasm of prostate (12/19/19) Physical Therapy Treatment Note PT-OP-A Visit Information Start: 10/17/19 16:05 Freq: Status: Active Protocol: Document 12/19/19 11:25 [facility] (Rec: 12/19/19 11:35 [facility] [id number]) Out-Patient Physical Therapy Visit Information Visit Information Visit Type Progress Note Visit Start Time 11:15 Visit Stop Time 12:00 Total Visit Minutes 45 Visit Number 11 PT-OP-B Current Condition Start: 10/17/19 16:05 Freq: Status: Active Protocol: Document 10/17/19 16:05 AMH (Rec: 10/17/19 16:30 [facility] [id number]) Current Condition History of Current Condition Onset Date 2017 Current Complaints decreased balance especially in a posterior direction History of Current Condition Prostate cancer, small cell lung cancer, 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 He had chemo and radiation to the lung 2.5 years ago Radiation 2xms a day with chemo in the middle. He has't been able to return to sailing which is what he loves because of his decreased balance. He also reports symptoms of cancer related fatigue that also limits his ability to go out for walks. Pt ambulated with a single point cane and his walks beside him for assistance. He also has complaints of right sided shoulder pain. Prior Treatments and Tests hx of limited stage small cell lung cancer previously treated with 4 cycles of carboplatin etoposide with consolidation radiation therapy to the chest completed in September 2017. 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 He has extreme difficulty with standing for a hour, getting into and out of the bath, putting on shoes and socks, squating, and performing light activities around his home Functional Limitations- Mobility/Gait limited to 100 feet and gets tired in his legs, is here with a single point cane and has a walker but doesn't use it. PT-OP-C Subjective Start: 11/14/19 17:49 Freq: Status: Active Protocol: Document 12/19/19 11:25 AM[facility] (Rec: 12/19/19 11:35 [facility] [id number]) OP-PT Subjective Patient Comments Patient Comments Nahun reports if he sits down too hard he has low back pain. He is still complaining of shoulder pain PT-OP-D Balance Start: 10/23/19 10:21 Freq: Status: Active Protocol: Document 10/17/19 16:00 AMH (Rec: 10/23/19 11:23 [facility] [id number]) Townsend Balance Assessment Evaluation Sitting to Standing Ability Several Tries w/Hands Unsupported Stance Supervision- 2 minutes Sitting Unsupported, Feet on Floor Safely- 2 minutes Standing to Sitting Ability Assist, Use Legs on Chair Transfer Ability Safely, Hand Use Unsupported Stance- Eyes Closed 3 seconds Unsupported Stance- Eyes Open Supervision to maintain Reaching Forward Standing Supervision Needed Pick- Up Object From Floor Requires Supervision Look Behind Shoulder - Standing Supervision w/Turning Turning 360 Degrees Supervision/Verbal Cues Unsupported Stance, Alternating Feet on 4 Steps w/Supervision Stair Unsupported Tandem Stance Assist to Step-15 seconds Unilateral Leg Stance Lifts Leg/Unable to Hold Total Score Townsend Total Score (out of 56 points) 27 Townsend Impairment Rating 20 to 39% Impaired (Score 34- 44) PT-OP-G Mobility & Gait Start: 10/23/19 10:21 Freq: Status: Active Protocol: Document 10/17/19 16:00 AMH (Rec: 10/23/19 15:18 [facility] [id number]) OP Mobility Evaluation Bed Mobility Rolling difficulty rolling but SBA Supine to and from Sit SBA Transfers Sit to Stand Needs hands to support, CGA Bed to Chair Transfers CGA, needs hands to support OP Gait Assessment Gait Gait Assistance Required: Contact Guard Assist Distance (Feet) 50 Able to Maintain Weight Bearing Status Yes During Gait Assistive Devices Assistive Device Gait Belt,Straight Cane Orthotic/Prosthetic Devices or Brace: No Gait Deviations General Gait Pattern Antalgic,Decreased Stride Length,Wide Based Gait Factors Limiting Gait Function Factors Limiting Gait Function Poor Balance Comments Gait Comments 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 affects gait the most PT-OP-K Range of Motion Start: 10/17/19 16:05 Freq: Status: Active Protocol: Document 10/17/19 16:00 AMH (Rec: 10/23/19 15:18 AM[facility] [email or web address]) Ankle and Foot Goniometric Range of Motion Ankle and Foot Right Ankle/Foot ROM WFL No Dorsiflexion with Knee Extended 5 Left Ankle/Foot ROM WFL No Dorsiflexion with Knee Extended 5 Ankle and Foot ROM Limitations ROM Limitations Soft Tissue Tightness Comments tightness in the gastroc soleus muscle contributes to decreased ankle ROM B PT-OP-M Strength Start: 10/17/19 16:05 Freq: Status: Active Protocol: Document 10/17/19 16:00 AMH (Rec: 10/23/19 15:18 AMH [email or web address]) Ankle/Foot Strength Ankle and Foot Manual Muscle Testing Right Dorsiflexion (L4) 4 Good Plantarflexion (S1) 4 Good Inversion 4 Good Eversion (S1) 4 Good Left Dorsiflexion (L4) 4 Good Plantarflexion (S1) 4 Good Inversion 4 Good Eversion (S1) 4 Good PT-OP-Q Treatments Start: 10/17/19 16:05 Freq: Status: Active Protocol: Document 12/19/19 11:25 AMH (Rec: 12/19/19 11:35 [facility] [id number]) Cardio Equipment Recumbent Stepper (Sci-Fit) Duration (Minutes) 6 Resistance level 2 Gym Equipment Shuttle Recovery Bilateral Squats Details 50# Reps/Time 3x 10 reps Shuttle Balance 1 Details shuttle balance red clips Comments feet together, feet apart, tandem stance, eyes open, eyes closed Therapeutic Exercises Sitting Exercises seated shoulder ER Sitting Exercise Name seated shoulder ER Reps/Minutes 2 x 10 reps seated shoulder Sitting Exercise Name seated shoulder pulleys Reps/Minutes x 4 min seated theraband rows Sitting Exercise Name seated theraband rows Reps/Minutes 2 x 10 reps Standing Exercises standing shoulder extension with the wand Reps/Minutes 2 x 10 reps side steps Standing Exercise Name side steps in parallel bars PT-OP-T Assessment and Plan Start: 10/17/19 16:05 Freq: Status: Active Protocol: Document 12/19/19 12:08 AMH (Rec: 12/19/19 12:12 AMH [email or web address]) Physical Therapy Assessment Goals Four Impairment poor ROM in the ankles contributing to decreased balance reactions Snf Goal (LTG) Nahun presents with improved AROM of bilateral ankle joints and is independent with a home program for calf flexibility and ankle strengthening GOOD PROGRESS LTG Duration 8 weeks Three Impairment Cancer related fatigue Snf Goal (LTG) Improve score on the FACIT fatigue scale by 8 or more points Pt still very fatigued but able to complete his ther ex and balancing program with PT Two Impairment Antalgic gait pattern and limited walking distance to 2 blocks Snf Goal (LTG) Nahun is able to increase his ambulation distance to 5 blocks and he is walking 3 times a weeks with his Improvements with gait as we have switched Nahun to a FWW for improved balance. He is doing much better with gait in the clinic but isn't walking a lot out of our sessions in the clinic LTG Duration 8 weeks One Impairment Poor balance reactions and risk for falls Snf Goal (LTG) Improve Townsend balance score from current score of 27 to 20 or better GOOD Progress Assessment Summary Assessment Nahun was really tired today but was able to complete a full treatment. We worked both on posture and strengthening today. He is still having shoulder pain but is able to complete shoulder ROM WFL with the shoulder pulleys Physical Therapy Plan Frequency and Duration Frequency of Treatment 2x/Week Duration of Treatment 8 Plan of Care Start Date 12/19/19 Plan of Care End Date 02/13/20 Next Visit Focus/Plan Next Note Type Treatment Note Next Visit Plan Continue working on balance stabilization exercises, shoulder ROM and strengthening
--- NOTE | 2019-12-19 12:14 | PT.OPPOC ---
Physical, Occupational & Speech Therapy At [facility] Current Diagnoses Malignant neoplasm of unspecified part of unspecified bronchus or lung (12/19/19) Malignant neoplasm of prostate (12/19/19) Visit Care Team Role Provider Type Gurdeep Cameron MD Primary Care Provider Physician Specialty: Internal Medicine Address: [address] [place] [address], [id number] Email: [email or web address] Ricarda Degroot MD Attending Provider Physician Referring Provider Specialty: Oncology Address: [address] [place] [address], [id number] Email: Plan Of Care PT-OP-T Assessment and Plan Start: 10/17/19 16:05 Freq: Status: Active Protocol: Document 12/19/19 12:08 AMH (Rec: 12/19/19 12:12 AMH [email or web address]) Physical Therapy Assessment Goals Four Impairment poor ROM in the ankles contributing to decreased balance reactions Long-Term Goal (LTG) Nahun presents with improved AROM of bilateral ankle joints and is independent with a home program for calf flexibility and ankle strengthening GOOD PROGRESS LTG Duration 8 weeks Three Impairment Cancer related fatigue [employer] Judge Goal (LTG) Improve score on the FACIT fatigue scale by 8 or more points Pt still very fatigued but able to complete his ther ex and balancing program with PT Two Impairment Antalgic gait pattern and limited walking distance to [address] Goal (LTG) Nahun is able to increase his ambulation distance to 5 blocks and he is walking 3 times a weeks with his Improvements with gait as we have switched Nahun to a FWW for improved balance. He is doing much better with gait in the clinic but isn't walking a lot out of our sessions in the clinic LTG Duration 8 weeks One Impairment Poor balance reactions and risk for falls [employer] Court Judge Goal (LTG) Improve Townsend balance score from current score of 27 to 20 or better GOOD Progress Assessment Summary Assessment Nahun was really tired today but was able to complete a full treatment. We worked both on posture and strenghtening today. He is still having shoulder pain but is able to complete shoulder ROM WFL with the shoulder pulleys Physical Therapy Plan Frequency and Duration Frequency of Treatment 2x/Week Duration of Treatment 8 Plan of Care Start Date 12/19/19 Plan of Care End Date 02/13/20 Next Visit Focus/Plan Next Note Type Treatment Note Next Visit Plan Continue working on balance stabilization exercises, shoulder ROM and strengthening Plan of Care Dates Plan of Care Start Date 12/19/19 Plan of Care End Date 02/13/20 Electronically Signed by: Sary Lua, PT 12/19/19 [id number] Please Sign and Return: I have reviewed this Plan of Care and certify that the skilled therapy services above are required to meet the patient?s needs. Physician Signature Date Printed Name and Credentials Clinical Instructor Signature Printed Name and Credentials
--- NOTE | 2019-12-19 12:16 | PT.OPPN ---
Current Diagnoses Malignant neoplasm of unspecified part of unspecified bronchus or lung (12/19/19) Malignant neoplasm of prostate (12/19/19) Physical Therapy Progress Note PT-OP-A Visit Information Start: 10/17/19 16:05 Freq: Status: Active Protocol: Document 12/19/19 11:25 AMH (Rec: 12/19/19 11:35 AMH [id number]) Out-Patient Physical Therapy Visit Information Visit Information Visit Type Progress Note Visit Start Time 11:15 Visit Stop Time 12:00 Total Visit Minutes 45 Visit Number 11 PT-OP-B Current Condition Start: 10/17/19 16:05 Freq: Status: Active Protocol: Document 10/17/19 16:05 AMH (Rec: 10/17/19 16:30 AMH [id number]) Current Condition History of Current Condition Onset Date 2017 Current Complaints decreased balance especially in a posterior direction History of Current Condition Prostate cancer, small cell lung cancer, 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 He had chemo and radiation to the lung 2.5 years ago Radiation 2xms a day with chemo in the middle. He has't been able to return to sailing which is what he loves because of his decreased balance. He also reports symptoms of cancer related fatigue that also limits his ability to go out for walks. Pt ambulated with a single point cane and his walks beside him for assistance. He also has complaints of right sided shoulder pain. Prior Treatments and Tests hx of limited stage small cell lung cancer previously treated with 4 cycles of carboplatin etoposide with consolidation radiation therapy to the chest completed in September 2017. 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 He has extreme difficulty with standing for a hour, getting into and out of the bath, putting on shoes and socks, squating, and performing light activities around his home Functional Limitations- Mobility/Gait limited to 100 feet and gets tired in his legs, is here with a single point cane and has a walker but doesn't use it. PT-OP-C Subjective Start: 11/14/19 17:49 Freq: Status: Active Protocol: Document 12/19/19 11:25 AMH (Rec: 12/19/19 11:35 [facility] [id number]) OP-PT Subjective Patient Comments Patient Comments Nahun reports if he sits down too hard he has low back pain. He is still complaining of shoulder pain PT-OP-D Balance Start: 10/23/19 10:21 Freq: Status: Active Protocol: Document 10/17/19 16:00 AMH (Rec: 10/23/19 11:23 [facility] [email or web address]) Townsend Balance Assessment Evaluation Sitting to Standing Ability Several Tries w/Hands Unsupported Stance Supervision- 2 minutes Sitting Unsupported, Feet on Floor Safely- 2 minutes Standing to Sitting Ability Assist, Use Legs on Chair Transfer Ability Safely, Hand Use Unsupported Stance- Eyes Closed 3 seconds Unsupported Stance- Eyes Open Supervision to maintain Reaching Forward Standing Supervision Needed Pick- Up Object From Floor Requires Supervision Look Behind Shoulder - Standing Supervision w/Turning Turning 360 Degrees Supervision/Verbal Cues Unsupported Stance, Alternating Feet on 4 Steps w/Supervision Stair Unsupported Tandem Stance Assist to Step-15 seconds Unilateral Leg Stance Lifts Leg/Unable to Hold Total Score Townsend Total Score (out of 56 points) 27 [place]send Impairment Rating 20 to 39% Impaired (Score 34- 44) PT-OP-G Mobility & Gait Start: 10/23/19 10:21 Freq: Status: Active Protocol: Document 10/17/19 16:00 AMH (Rec: 10/23/19 15:18 [facility] [email or web address]) OP Mobility Evaluation Bed Mobility Rolling difficulty rolling but SBA Supine to and from Sit SBA Transfers Sit to Stand Needs hands to support, CGA Bed to Chair Transfers CGA, needs hands to support OP Gait Assessment Gait Gait Assistance Required: Contact Guard Assist Distance (Feet) 50 Able to Maintain Weight Bearing Status Yes During Gait Assistive Devices Assistive Device Gait Belt,Straight Cane Orthotic/Prosthetic Devices or Brace: No Gait Deviations General Gait Pattern Antalgic,Decreased Stride Length,Wide Based Gait Factors Limiting Gait Function Factors Limiting Gait Function Poor Balance Comments Gait Comments 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 affects gait the most PT-OP-K Range of Motion Start: 10/17/19 16:05 Freq: Status: Active Protocol: Document 10/17/19 16:00 AMH (Rec: 10/23/19 15:18 AMH [email or web address]) Ankle and Foot Goniometric Range of Motion Ankle and Foot Measured in Degrees Right Ankle/Foot ROM WFL No Dorsiflexion with Knee Extended 5 Left Ankle/Foot ROM WFL No Dorsiflexion with Knee Extended 5 Ankle and Foot ROM Limitations ROM Limitations Soft Tissue Tightness Comments tightness in the gastroc soleus muscle contributes to decreased ankle ROM B PT-OP-M Strength Start: 10/17/19 16:05 Freq: Status: Active Protocol: Document 10/17/19 16:00 AMH (Rec: 10/23/19 15:18 AMH [email or web address]) Ankle/Foot Strength Ankle and Foot Manual Muscle Testing Right Dorsiflexion (L4) 4 Good Plantarflexion (S1) 4 Good Inversion 4 Good Eversion (S1) 4 Good Left Dorsiflexion (L4) 4 Good Plantarflexion (S1) 4 Good Inversion 4 Good Eversion (S1) 4 Good PT-OP-T Assessment and Plan Start: 10/17/19 16:05 Freq: Status: Active Protocol: Document 12/19/19 12:08 AMH (Rec: 12/19/19 12:12 [facility] [email or web address]) Physical Therapy Assessment Goals Four Impairment poor ROM in the ankles contributing to decreased balance reactions Residential Goal (LTG) Nahun presents with improved AROM of bilateral ankle joints and is independent with a home program for calf flexibility and ankle strengthening GOOD PROGRESS LTG Duration 8 weeks Three Impairment Cancer related fatigue Residential Goal (LTG) Improve score on the FACIT fatigue scale by 8 or more points Pt still very fatigued but able to complete his ther ex and balancing program with PT Two Impairment Antalgic gait pattern and limited walking distance to 2 blocks Residential Goal (LTG) Nahun is able to increase his ambulation distance to 5 blocks and he is walking 3 times a weeks with his Improvements with gait as we have switched Nahun to a FWW for improved balance. He is doing much better with gait in the clinic but isn't walking a lot out of our sessions in the clinic LTG Duration 8 weeks One Impairment Poor balance reactions and risk for falls [employer] Goal (LTG) Improve Townsend balance score from current score of 27 to 20 or better GOOD Progress Assessment Summary Assessment Nahun was really tired today but was able to complete a full treatment. We worked both on posture and strenghtening today. He is still having shoulder pain but is able to complete shoulder ROM WFL with the shoulder pulleys Physical Therapy Plan Frequency and Duration Frequency of Treatment 2x/Week Duration of Treatment 8 Plan of Care Start Date 12/19/19 Plan of Care End Date 02/13/20 Next Visit Focus/Plan Next Note Type Treatment Note Next Visit Plan Continue working on balance stabilization exercises, shoulder ROM and strengthening
--- NOTE | 2019-12-24 15:30 | PT.OTN ---
Current Diagnoses Malignant neoplasm of unspecified part of unspecified bronchus or lung (12/24/19) Malignant neoplasm of prostate (12/24/19) Physical Therapy Treatment Note PT-OP-A Visit Information Start: 10/17/19 16:05 Freq: Status: Active Protocol: Document 12/24/19 13:46 SP (Rec: 12/24/19 15:47 SP [id number]) Out-Patient Physical Therapy Visit Information Visit Information Visit Type Treatment Note Visit Start Time 13:46 Visit Stop Time 14:30 Total Visit Minutes 44 Visit Number 12 Number of BORDER PATROL AGENT Visits 1 PT-OP-B Current Condition Start: 10/17/19 16:05 Freq: Status: Active Protocol: Document 10/17/19 16:05 AMH (Rec: 10/17/19 16:30 AMH [id number]) Current Condition History of Current Condition Onset Date 2017 Current Complaints decreased balance especially in a posterior direction History of Current Condition Prostate cancer, small cell lung cancer, 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 He had chemo and radiation to the lung 2.5 years ago Radiation 2xms a day with chemo in the middle. He has't been able to return to sailing which is what he loves because of his decreased balance. He also reports symptoms of cancer related fatigue that also limits his ability to go out for walks. Pt ambulated with a single point cane and his walks beside him for assistance. He also has complaints of right sided shoulder pain. Prior Treatments and Tests hx of limited stage small cell lung cancer previously treated with 4 cycles of carboplatin etoposide with consolidation radiation therapy to the chest completed in September 2017. 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 He has extreme difficulty with standing for a hour, getting into and out of the bath, putting on shoes and socks, squating, and performing light activities around his home Functional Limitations- Mobility/Gait limited to 100 feet and gets tired in his legs, is here with a single point cane and has a walker but doesn't use it. PT-OP-C Subjective Start: 11/14/19 17:49 Freq: Status: Active Protocol: Document 12/24/19 13:46 SP (Rec: 12/24/19 15:47 SP [id number]) OP-PT Subjective Patient Comments Patient Comments Pt no reports of pain pre PT. reported he was in alot of pain post last tx mainly in legs and low back, think did to much last tx. PT-OP-D Balance Start: 10/23/19 10:21 Freq: Status: Active Protocol: Document 10/17/19 16:00 AMH (Rec: 10/23/19 11:23 AMH [email or web address]) Townsend Balance Assessment Evaluation Sitting to Standing Ability Several Tries w/Hands Unsupported Stance Supervision- 2 minutes Sitting Unsupported, Feet on Floor Safely- 2 minutes Standing to Sitting Ability Assist, Use Legs on Chair Transfer Ability Safely, Hand Use Unsupported Stance- Eyes Closed 3 seconds Unsupported Stance- Eyes Open Supervision to maintain Reaching Forward Standing Supervision Needed Pick- Up Object From Floor Requires Supervision Look Behind Shoulder - Standing Supervision w/Turning Turning 360 Degrees Supervision/Verbal Cues Unsupported Stance, Alternating Feet on 4 Steps w/Supervision Stair Unsupported Tandem Stance Assist to Step-15 seconds Unilateral Leg Stance Lifts Leg/Unable to Hold Total Score Townsend Total Score (out of 56 points) 27 Townsend Impairment Rating 20 to 39% Impaired (Score 34- 44) PT-OP-G Mobility & Gait Start: 10/23/19 10:21 Freq: Status: Active Protocol: Document 10/17/19 16:00 AMH (Rec: 10/23/19 15:18 AMH [email or web address]) OP Mobility Evaluation Bed Mobility Rolling difficulty rolling but SBA Supine to and from Sit SBA Transfers Sit to Stand Needs hands to support, CGA Bed to Chair Transfers CGA, needs hands to support OP Gait Assessment Gait Gait Assistance Required: Contact Guard Assist Distance (Feet) 50 Able to Maintain Weight Bearing Status Yes During Gait Assistive Devices Assistive Device Gait Belt,Straight Cane Orthotic/Prosthetic Devices or Brace: No Gait Deviations General Gait Pattern Antalgic,Decreased Stride Length,Wide Based Gait Factors Limiting Gait Function Factors Limiting Gait Function Poor Balance Comments Gait Comments 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 affects gait the most PT-OP-K Range of Motion Start: 10/17/19 16:05 Freq: Status: Active Protocol: Document 10/17/19 16:00 AMH (Rec: 10/23/19 15:18 AMH [email or web address]) Ankle and Foot Goniometric Range of Motion Ankle and Foot Right Ankle/Foot ROM WFL No Dorsiflexion with Knee Extended 5 Left Ankle/Foot ROM WFL No Dorsiflexion with Knee Extended 5 Ankle and Foot ROM Limitations ROM Limitations Soft Tissue Tightness Comments tightness in the gastroc soleus muscle contributes to decreased ankle ROM B PT-OP-M Strength Start: 10/17/19 16:05 Freq: Status: Active Protocol: Document 10/17/19 16:00 AMH (Rec: 10/23/19 15:18 AMH [email or web address]) Ankle/Foot Strength Ankle and Foot Manual Muscle Testing Right Dorsiflexion (L4) 4 Good Plantarflexion (S1) 4 Good Inversion 4 Good Eversion (S1) 4 Good Left Dorsiflexion (L4) 4 Good Plantarflexion (S1) 4 Good Inversion 4 Good Eversion (S1) 4 Good PT-OP-Q Treatments Start: 10/17/19 16:05 Freq: Status: Active Protocol: Document 12/24/19 13:46 SP (Rec: 12/24/19 15:47 SP [id number]) Cardio Equipment Recumbent Stepper (Sci-Fit) Duration (Minutes) 5 Resistance level 2 Other cuing arms next to side Therapeutic Exercises Sitting Exercises scap retractions Side bilateral Reps/Minutes 3 sec hold x10 seated shoulder ER Sitting Exercise Name seated shoulder ER Side bilateral Resistance Tb #1 Reps/Minutes 2 x 10 reps seated shoulder Sitting Exercise Name Shld flexion Side bilateral Equipment Used AROM Reps/Minutes 2 x10 seated theraband rows Sitting Exercise Name seated theraband rows Side bilateral Resistance TB #1 Reps/Minutes 2 x 10 reps 1 Sitting Exercise Name shoulder praveen Side right Reps/Minutes x 4 min Neuro Re-Education Treatment Balance Activities WBOS,NBOS, stagger corner Details back to corner wall, FWW front Surface floor Reps/Duration 8 min Comments Min A for support 1. stationary 2. head turns, vertical each foot position Add HEP with to assist usign gait belt. PT-OP-T Assessment and Plan Start: 10/17/19 16:05 Freq: Status: Active Protocol: Document 12/24/19 13:46 SP (Rec: 12/24/19 15:47 SP [id number]) Physical Therapy Assessment Goals Four Impairment poor ROM in the ankles contributing to decreased balance reactions Network Controller Goal (LTG) Nahun presents with improved AROM of bilateral ankle joints and is independent with a home program for calf flexibility and ankle strengthening GOOD PROGRESS LTG Duration 8 weeks Three Impairment Cancer related fatigue Retirement Goal (LTG) Improve score on the FACIT fatigue scale by 8 or more points Pt still very fatigued but able to complete his ther ex and balancing program with PT Two Impairment Antalgic gait pattern and limited walking distance to 2 blocks Network Controller Goal (LTG) Nahun is able to increase his ambulation distance to 5 blocks and he is walking 3 times a weeks with his Improvements with gait as we have switched Nahun to a FWW for improved balance. He is doing much better with gait in the clinic but isn't walking a lot out of our sessions in the clinic LTG Duration 8 weeks One Impairment Poor balance reactions and risk for falls Retirement Goal (LTG) Improve Townsend balance score from current score of 27 to 20 or better GOOD Progress Assessment Summary Assessment Pt responded well to tx. Reported little discomfort over L anterior shld post B Ue FF activity but improved post manual STMs and AP GH jt glides. Pt stated felt fine end of tx. Physical Therapy Plan Frequency and Duration Frequency of Treatment 2x/Week Duration of Treatment 8 Plan of Care Start Date 12/19/19 Plan of Care End Date 02/13/20 Therapeutic Interventions Therapeutic Interventions Home Exercise Program,Manual Therapy,Neuromuscular Re- education,Patient/Caregiver Education,Self-Care/Home Management,Soft Tissue Mobilization,Therapeutic Exercises Next Visit Focus/Plan Next Note Type Treatment Note Next Visit Plan Assess response to UE exercises, manual L UE and balance corner last tx. Continue working on balance stabilization exercises, shoulder ROM and strengthening
--- NOTE | 2019-12-26 14:30 | PT.OTN ---
Current Diagnoses Malignant neoplasm of unspecified part of unspecified bronchus or lung (12/26/19) Malignant neoplasm of prostate (12/26/19) Physical Therapy Treatment Note PT-OP-A Visit Information Start: 10/17/19 16:05 Freq: Status: Active Protocol: Document 12/26/19 13:49 SP (Rec: 12/26/19 15:56 SP [id number]) Out-Patient Physical Therapy Visit Information Visit Information Visit Type Treatment Note Visit Note attended tx session and provided occasional cuing. 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 He had chemo and radiation to the lung 2.5 years ago Radiation 2xms a day with chemo in the middle. He has't been able to return to sailing which is what he loves because of his decreased balance. He also reports symptoms of cancer related fatigue that also limits his ability to go out for walks. Pt ambulated with a single point cane and his walks beside him for assistance. He also has complaints of right sided shoulder pain. Prior Treatments and Tests hx of limited stage small cell lung cancer previously treated with 4 cycles of carboplatin etoposide with consolidation radiation therapy to the chest completed in September 2017. 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 He has extreme difficulty with standing for a hour, getting into and out of the bath, putting on shoes and socks, squating, and performing light activities around his home Functional Limitations- Mobility/Gait limited to 100 feet and gets tired in his legs, is here with a single point cane and has a walker but doesn't use it. PT-OP-C Subjective Start: 11/14/19 17:49 Freq: Status: Active Protocol: Document 12/26/19 13:49 SP (Rec: 12/26/19 15:56 SP [id number]) OP-PT Subjective Patient Comments Patient Comments Pt reported doing ok today, said responded well with shoulder exercises performed last tx. PT-OP-D Balance Start: 10/23/19 10:21 Freq: Status: Active Protocol: Document 10/17/19 16:00 AMH (Rec: 10/23/19 11:23 AMH [email or web address]) Townsend Balance Assessment Evaluation Sitting to Standing Ability Several Tries w/Hands Unsupported Stance Supervision- 2 minutes Sitting Unsupported, Feet on Floor Safely- 2 minutes Standing to Sitting Ability Assist, Use Legs on Chair Transfer Ability Safely, Hand Use Unsupported Stance- Eyes Closed 3 seconds Unsupported Stance- Eyes Open Supervision to maintain Reaching Forward Standing Supervision Needed Pick- Up Object From Floor Requires Supervision Look Behind Shoulder - Standing Supervision w/Turning Turning 360 Degrees Supervision/Verbal Cues Unsupported Stance, Alternating Feet on 4 Steps w/Supervision Stair Unsupported Tandem Stance Assist to Step-15 seconds Unilateral Leg Stance Lifts Leg/Unable to Hold Total Score Townsend Total Score (out of 56 points) 27 Townsend Impairment Rating 20 to 39% Impaired (Score 34- 44) PT-OP-G Mobility & Gait Start: 10/23/19 10:21 Freq: Status: Active Protocol: Document 10/17/19 16:00 AMH (Rec: 10/23/19 15:18 AMH [email or web address]) OP Mobility Evaluation Bed Mobility Rolling difficulty rolling but SBA Supine to and from Sit SBA Transfers Sit to Stand Needs hands to support, CGA Bed to Chair Transfers CGA, needs hands to support OP Gait Assessment Gait Gait Assistance Required: Contact Guard Assist Distance (Feet) 50 Able to Maintain Weight Bearing Status Yes During Gait Assistive Devices Assistive Device Gait Belt,Straight Cane Orthotic/Prosthetic Devices or Brace: No Gait Deviations General Gait Pattern Antalgic,Decreased Stride Length,Wide Based Gait Factors Limiting Gait Function Factors Limiting Gait Function Poor Balance Comments Gait Comments 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 affects gait the most PT-OP-K Range of Motion Start: 10/17/19 16:05 Freq: Status: Active Protocol: Document 10/17/19 16:00 AMH (Rec: 10/23/19 15:18 AMH [email or web address]) Ankle and Foot Goniometric Range of Motion Ankle and Foot Right Ankle/Foot ROM WFL No Dorsiflexion with Knee Extended 5 Left Ankle/Foot ROM WFL No Dorsiflexion with Knee Extended 5 Ankle and Foot ROM Limitations ROM Limitations Soft Tissue Tightness Comments tightness in the gastroc soleus muscle contributes to decreased ankle ROM B PT-OP-M Strength Start: 10/17/19 16:05 Freq: Status: Active Protocol: Document 10/17/19 16:00 AMH (Rec: 10/23/19 15:18 AMH [email or web address]) Ankle/Foot Strength Ankle and Foot Manual Muscle Testing Right Dorsiflexion (L4) 4 Good Plantarflexion (S1) 4 Good Inversion 4 Good Eversion (S1) 4 Good Left Dorsiflexion (L4) 4 Good Plantarflexion (S1) 4 Good Inversion 4 Good Eversion (S1) 4 Good PT-OP-Q Treatments Start: 10/17/19 16:05 Freq: Status: Active Protocol: Document 12/26/19 13:49 SP (Rec: 12/26/19 15:56 SP [id number]) Therapeutic Exercises Sitting Exercises HABD TB Resistance AROM, TB #1 Reps/Minutes x8 Comments cued relaxed shld, stopped Tb use due to L medial humerous discomfort. seated shoulder ER Sitting Exercise Name seated shoulder ER Side bilateral Resistance AROM, Tb #1 Reps/Minutes 2 x 10 reps seated shoulder Sitting Exercise Name Shld flexion Side bilateral Equipment Used AROM Reps/Minutes 2 x10 seated theraband rows Sitting Exercise Name seated theraband rows Side bilateral Resistance TB #1 Reps/Minutes 2 x 10 reps 1 Sitting Exercise Name shoulder praveen Side right Reps/Minutes x 4 min Therapeutic Activity Therapeutic Activity sit to stand Reps/Minutes x5 reps Comments cued scoot forward, ankles under legs and push from chair to stand, reach back prior to sit. Gait Training Gait Activity gait level surface Device Used FWW Level of Assistance CGA- Min Surface level Distance/Duration 200 Treatment Focus increase stride and foot clearance R>L Comments cued body closer to FWW, increase stride and foot clearance R>L cuing required. Neuro Re-Education Treatment Balance Activities WBOS,NBOS, stagger corner Details back to corner wall, FWW front Surface floor Reps/Duration 8 min Comments Min A for support 1. stationary 2. head turns, vertical each foot position 3. Added EC (challenged R LE backin stagger) Add HEP with to assist usign gait belt. PT-OP-T Assessment and Plan Start: 10/17/19 16:05 Freq: Status: Active Protocol: Document 12/26/19 13:49 SP (Rec: 12/26/19 15:56 SP [id number]) Physical Therapy Assessment Goals Four Impairment poor ROM in the ankles contributing to decreased balance reactions Usp Goal (LTG) Nahun presents with improved AROM of bilateral ankle joints and is independent with a home program for calf flexibility and ankle strengthening GOOD PROGRESS LTG Duration 8 weeks Three Impairment Cancer related fatigue Campus Wellness Coordinator Goal (LTG) Improve score on the FACIT fatigue scale by 8 or more points Pt still very fatigued but able to complete his ther ex and balancing program with PT Two Impairment Antalgic gait pattern and limited walking distance to 2 blocks Usp Goal (LTG) Nahun is able to increase his ambulation distance to 5 blocks and he is walking 3 times a weeks with his Improvements with gait as we have switched Nahun to a FWW for improved balance. He is doing much better with gait in the clinic but isn't walking a lot out of our sessions in the clinic LTG Duration 8 weeks One Impairment Poor balance reactions and risk for falls Campus Wellness Coordinator Goal (LTG) Improve Townsend balance score from current score of 27 to 20 or better GOOD Progress Assessment Summary Assessment Pt reported little discomfort L elbow during HABD with resistance so decreased to AROM with good result feedback . Able to complete repeated sit to stands x5 reps before B knees started to irritate so stoppped to work on safety with transfering and standing COG over NOMAN with decrease UE support withcuing for hip hinge. Reviewed corner balance with improvement in head turns and EC today. Physical Therapy Plan Frequency and Duration Frequency of Treatment 2x/Week Duration of Treatment 8 Plan of Care Start Date 12/19/19 Plan of Care End Date 02/13/20 Therapeutic Interventions Therapeutic Interventions Home Exercise Program,Manual Therapy,Neuromuscular Re- education,Patient/Caregiver Education,Self-Care/Home Management,Soft Tissue Mobilization,Therapeutic Exercises Next Visit Focus/Plan Next Note Type Treatment Note Next Visit Plan Assess response to UE exercises, sit to stands, balance incorner, gait using FWW last tx. Continue working on balance stabilization exercises, shoulder ROM and strengthening
--- NOTE | 2019-12-30 13:45 | PT.OTN ---
Current Diagnoses Malignant neoplasm of unspecified part of unspecified bronchus or lung (12/30/19) Malignant neoplasm of prostate (12/30/19) Physical Therapy Treatment Note PT-OP-A Visit Information Start: 10/17/19 16:05 Freq: Status: Active Protocol: Document 12/30/19 13:04 SP (Rec: 12/30/19 16:13 SP [id number]) Out-Patient Physical Therapy Visit Information Visit Information Visit Type Treatment Note Visit Note attended tx session, and provided cuing for tolerance to ex. 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 He had chemo and radiation to the lung 2.5 years ago Radiation 2xms a day with chemo in the middle. He has't been able to return to sailing which is what he loves because of his decreased balance. He also reports symptoms of cancer related fatigue that also limits his ability to go out for walks. Pt ambulated with a single point cane and his walks beside him for assistance. He also has complaints of right sided shoulder pain. Prior Treatments and Tests hx of limited stage small cell lung cancer previously treated with 4 cycles of carboplatin etoposide with consolidation radiation therapy to the chest completed in September 2017. 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 He has extreme difficulty with standing for a hour, getting into and out of the bath, putting on shoes and socks, squating, and performing light activities around his home Functional Limitations- Mobility/Gait limited to 100 feet and gets tired in his legs, is here with a single point cane and has a walker but doesn't use it. PT-OP-C Subjective Start: 11/14/19 17:49 Freq: Status: Active Protocol: Document 12/30/19 13:04 SP (Rec: 12/30/19 16:13 SP [id number]) OP-PT Subjective Patient Comments Patient Comments Pt reported doing good today, reported didn't instruct patient much of exercises this past weekend due to cleaning house and preparing for family visit for pt's 80th birthday. Cancelling Th appt due to family in town. Pt stated still gets L hip/LB pain when sits down at times. PT-OP-D Balance Start: 10/23/19 10:21 Freq: Status: Active Protocol: Document 10/17/19 16:00 [facility] (Rec: 10/23/19 11:23 [facility] [email or web address]) [place]send Balance Assessment Evaluation Sitting to Standing Ability Several Tries w/Hands Unsupported Stance Supervision- 2 minutes Sitting Unsupported, Feet on Floor Safely- 2 minutes Standing to Sitting Ability Assist, Use Legs on Chair Transfer Ability Safely, Hand Use Unsupported Stance- Eyes Closed 3 seconds Unsupported Stance- Eyes Open Supervision to maintain Reaching Forward Standing Supervision Needed Pick- Up Object From Floor Requires Supervision Look Behind Shoulder - Standing Supervision w/Turning Turning 360 Degrees Supervision/Verbal Cues Unsupported Stance, Alternating Feet on 4 Steps w/Supervision Stair Unsupported Tandem Stance Assist to Step-15 seconds Unilateral Leg Stance Lifts Leg/Unable to Hold Total Score Townsend Total Score (out of 56 points) 27 Townsend Impairment Rating 20 to 39% Impaired (Score 34- 44) PT-OP-G Mobility & Gait Start: 10/23/19 10:21 Freq: Status: Active Protocol: Document 10/17/19 16:00 [facility] (Rec: 10/23/19 15:18 [facility] [email or web address]) OP Mobility Evaluation Bed Mobility Rolling difficulty rolling but SBA Supine to and from Sit SBA Transfers Sit to Stand Needs hands to support, CGA Bed to Chair Transfers CGA, needs hands to support OP Gait Assessment Gait Gait Assistance Required: Contact Guard Assist Distance (Feet) 50 Able to Maintain Weight Bearing Status Yes During Gait Assistive Devices Assistive Device Gait Belt,Straight Cane Orthotic/Prosthetic Devices or Brace: No Gait Deviations General Gait Pattern Antalgic,Decreased Stride Length,Wide Based Gait Factors Limiting Gait Function Factors Limiting Gait Function Poor Balance Comments Gait Comments 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 affects gait the most PT-OP-K Range of Motion Start: 10/17/19 16:05 Freq: Status: Active Protocol: Document 10/17/19 16:00 [facility] (Rec: 10/23/19 15:18 [facility] [email or web address]) Ankle and Foot Goniometric Range of Motion Ankle and Foot Right Ankle/Foot ROM WFL No Dorsiflexion with Knee Extended 5 Left Ankle/Foot ROM WFL No Dorsiflexion with Knee Extended 5 Ankle and Foot ROM Limitations ROM Limitations Soft Tissue Tightness Comments tightness in the gastroc soleus muscle contributes to decreased ankle ROM B PT-OP-M Strength Start: 10/17/19 16:05 Freq: Status: Active Protocol: Document 10/17/19 16:00 [facility] (Rec: 10/23/19 15:18 [facility] [email or web address]) Ankle/Foot Strength Ankle and Foot Manual Muscle Testing Right Dorsiflexion (L4) 4 Good Plantarflexion (S1) 4 Good Inversion 4 Good Eversion (S1) 4 Good Left Dorsiflexion (L4) 4 Good Plantarflexion (S1) 4 Good Inversion 4 Good Eversion (S1) 4 Good PT-OP-Q Treatments Start: 10/17/19 16:05 Freq: Status: Active Protocol: Document 12/30/19 13:04 SP (Rec: 12/30/19 16:13 SP [id number]) Therapeutic Exercises Sitting Exercises HABD TB Resistance AROM (unable use Tb today R shld pain) Reps/Minutes 2x10 Comments cued relaxed shld, stopped Tb use due to L medial humerous discomfort. seated shoulder ER Sitting Exercise Name seated shoulder ER Side bilateral Resistance Tb #1 Reps/Minutes 2 x 10 reps Comments cued scap depression seated shoulder Sitting Exercise Name Shld flexion Side bilateral Equipment Used AROM Reps/Minutes 2 x10 (hold TB #1 as a dowel) Comments cued tolerant range seated theraband rows Sitting Exercise Name seated theraband rows Side bilateral Resistance TB #1 Reps/Minutes 2 x 15 reps Comments cued 90 deg elbow, shld depression awareness Standing Exercises heel raises Side bilateral Equipment Used rail Reps/Minutes x10 Comments cued slow pacing Step f/back taps Equipment Used FWW, 1 UE Reps/Minutes 2x10 alternate BLE Comments cued COG over NOMAN, improved foot cleareance and balance mini squat Reps/Minutes 2x5 standing toe taps Standing Exercise Name toe taps on 6 step Reps/Minutes x 1 min Comments in parallel bars Manual Therapy Treatment Soft Tissue Mobilization L rec ab and L obliques Mobilization Type Myofascial Release,Sustained Pressure Intensity/Depth Superficial Body Position Sitting Comments spasming decreased after manual PT-OP-T Assessment and Plan Start: 10/17/19 16:05 Freq: Status: Active Protocol: Document 12/30/19 13:04 SP (Rec: 12/30/19 16:13 SP [id number]) Physical Therapy Assessment Goals Four Impairment poor ROM in the ankles contributing to decreased balance reactions Half-Way Goal (LTG) Nahun presents with improved AROM of bilateral ankle joints and is independent with a home program for calf flexibility and ankle strengthening GOOD PROGRESS LTG Duration 8 weeks Three Impairment Cancer related fatigue Guard Lieutenant Goal (LTG) Improve score on the FACIT fatigue scale by 8 or more points Pt still very fatigued but able to complete his ther ex and balancing program with PT Two Impairment Antalgic gait pattern and limited walking distance to 2 blocks Half-Way Goal (LTG) Nahun is able to increase his ambulation distance to 5 blocks and he is walking 3 times a weeks with his Improvements with gait as we have switched Nahun to a FWW for improved balance. He is doing much better with gait in the clinic but isn't walking a lot out of our sessions in the clinic LTG Duration 8 weeks One Impairment Poor balance reactions and risk for falls Half-Way Goal (LTG) Improve Townsend balance score from current score of 27 to 20 or better GOOD Progress Assessment Summary Assessment Pt had little discomfort R mid pec and prox tricep during HABD so stopped and anterolateral abdominal pain when sitting down post standing exercises. Improved post manual sustained pressure and MFR. Think was using abdominals for trunk balance more today and spasming. Pt making gains in stride and foot clearance end of tx. needs reminders for body closer to and upright posture in FWW and reaching back prior to sitting for safety. Physical Therapy Plan Frequency and Duration Frequency of Treatment 2x/Week Duration of Treatment 8 Plan of Care Start Date 12/19/19 Plan of Care End Date 02/13/20 Therapeutic Interventions Therapeutic Interventions Home Exercise Program,Manual Therapy,Neuromuscular Re- education,Patient/Caregiver Education,Self-Care/Home Management,Soft Tissue Mobilization,Therapeutic Exercises Next Visit Focus/Plan Next Note Type Treatment Note Next Visit Plan Assess response to UE HEP review, standing ex at rail. Continue working on balance stabilization exercises, shoulder ROM and strengthening
--- NOTE | 2020-01-07 15:38 | PT.OTN ---
Current Diagnoses Malignant neoplasm of unspecified part of unspecified bronchus or lung (01/07/20) Malignant neoplasm of prostate (01/07/20) Physical Therapy Treatment Note PT-OP-A Visit Information Start: 10/17/19 16:05 Freq: Status: Active Protocol: Document 01/07/20 15:29 [facility] (Rec: 01/07/20 15:38 [facility] [id number]) Out-Patient Physical Therapy Visit Information Visit Information Visit Type Treatment Note Visit Start Time 14:35 Visit Stop Time 15:20 Total Visit Minutes 45 Visit Number 15 Number of CYLINDRICAL MIXER Visits 0 PT-OP-B Current Condition Start: 10/17/19 16:05 Freq: Status: Active Protocol: Document 10/17/19 16:05 [facility] (Rec: 10/17/19 16:30 [facility] [id number]) Current Condition History of Current Condition Onset Date 2017 Current Complaints decreased balance especially in a posterior direction History of Current Condition Prostate cancer, small cell lung cancer, 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 He had chemo and radiation to the lung 2.5 years ago Radiation 2xms a day with chemo in the middle. He has't been able to return to sailing which is what he loves because of his decreased balance. He also reports symptoms of cancer related fatigue that also limits his ability to go out for walks. Pt ambulated with a single point cane and his walks beside him for assistance. He also has complaints of right sided shoulder pain. Prior Treatments and Tests hx of limited stage small cell lung cancer previously treated with 4 cycles of carboplatin etoposide with consolidation radiation therapy to the chest completed in September 2017. 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 He has extreme difficulty with standing for a hour, getting into and out of the bath, putting on shoes and socks, squating, and performing light activities around his home Functional Limitations- Mobility/Gait limited to 100 feet and gets tired in his legs, is here with a single point cane and has a walker but doesn't use it. PT-OP-C Subjective Start: 11/14/19 17:49 Freq: Status: Active Protocol: Document 01/07/20 15:29 [facility] (Rec: 01/07/20 15:38 [facility] [id number]) OP-PT Subjective Patient Comments Patient Comments reports it was Nahun's 80th birthday this past weekend. His kids were in town visiting for the week so they didn't get a lot of exercises done but he has more energy today PT-OP-D Balance Start: 10/23/19 10:21 Freq: Status: Active Protocol: Document 10/17/19 16:00 [facility] (Rec: 10/23/19 11:23 [facility] [email or web address]) [place]send Balance Assessment Evaluation Sitting to Standing Ability Several Tries w/Hands Unsupported Stance Supervision- 2 minutes Sitting Unsupported, Feet on Floor Safely- 2 minutes Standing to Sitting Ability Assist, Use Legs on Chair Transfer Ability Safely, Hand Use Unsupported Stance- Eyes Closed 3 seconds Unsupported Stance- Eyes Open Supervision to maintain Reaching Forward Standing Supervision Needed Pick- Up Object From Floor Requires Supervision Look Behind Shoulder - Standing Supervision w/Turning Turning 360 Degrees Supervision/Verbal Cues Unsupported Stance, Alternating Feet on 4 Steps w/Supervision Stair Unsupported Tandem Stance Assist to Step-15 seconds Unilateral Leg Stance Lifts Leg/Unable to Hold Total Score [place]send Total Score (out of 56 points) 27 [place] Impairment Rating 20 to 39% Impaired (Score 34- 44) PT-OP-G Mobility & Gait Start: 10/23/19 10:21 Freq: Status: Active Protocol: Document 10/17/19 16:00 [facility] (Rec: 10/23/19 15:18 [facility] [email or web address]) OP Mobility Evaluation Bed Mobility Rolling difficulty rolling but SBA Supine to and from Sit SBA Transfers Sit to Stand Needs hands to support, CGA Bed to Chair Transfers CGA, needs hands to support OP Gait Assessment Gait Gait Assistance Required: Contact Guard Assist Distance (Feet) 50 Able to Maintain Weight Bearing Status Yes During Gait Assistive Devices Assistive Device Gait Belt,Straight Cane Orthotic/Prosthetic Devices or Brace: No Gait Deviations General Gait Pattern Antalgic,Decreased Stride Length,Wide Based Gait Factors Limiting Gait Function Factors Limiting Gait Function Poor Balance Comments Gait Comments 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 affects gait the most PT-OP-K Range of Motion Start: 10/17/19 16:05 Freq: Status: Active Protocol: Document 10/17/19 16:00 [facility] (Rec: 10/23/19 15:18 [facility] [email or web address]) Ankle and Foot Goniometric Range of Motion Ankle and Foot Right Ankle/Foot ROM WFL No Dorsiflexion with Knee Extended 5 Left Ankle/Foot ROM WFL No Dorsiflexion with Knee Extended 5 Ankle and Foot ROM Limitations ROM Limitations Soft Tissue Tightness Comments tightness in the gastroc soleus muscle contributes to decreased ankle ROM B PT-OP-M Strength Start: 10/17/19 16:05 Freq: Status: Active Protocol: Document 10/17/19 16:00 [facility] (Rec: 10/23/19 15:18 [facility] [email or web address]) Ankle/Foot Strength Ankle and Foot Manual Muscle Testing Right Dorsiflexion (L4) 4 Good Plantarflexion (S1) 4 Good Inversion 4 Good Eversion (S1) 4 Good Left Dorsiflexion (L4) 4 Good Plantarflexion (S1) 4 Good Inversion 4 Good Eversion (S1) 4 Good PT-OP-Q Treatments Start: 10/17/19 16:05 Freq: Status: Active Protocol: Document 01/07/20 15:29 [facility] (Rec: 01/07/20 15:38 [facility] [id number]) Cardio Equipment Recumbent Elliptical (Biodex) Duration (Minutes) 5 Resistance 1 Gym Equipment Shuttle Balance 1 Details shuttle balance red clips Comments feet together, feet apart, tandem stance, eyes open, eyes closed Therapeutic Exercises Sitting Exercises scap retractions Side bilateral Reps/Minutes 3 sec hold x10 seated shoulder ER Sitting Exercise Name seated shoulder ER Side bilateral Resistance Tb #1 Reps/Minutes 2 x 10 reps Comments cued scap depression seated shoulder Sitting Exercise Name Shld flexion Side bilateral Equipment Used AROM Reps/Minutes 2 x10 (hold TB #1 as a dowel) Comments cued tolerant range seated theraband rows Sitting Exercise Name seated theraband rows Side bilateral Resistance TB #1 Reps/Minutes 2 x 15 reps Comments cued 90 deg elbow, shld depression awareness 1 Sitting Exercise Name shoulder praveen Side right Reps/Minutes x 4 min Standing Exercises heel raises Side bilateral Equipment Used rail Reps/Minutes x10 Comments cued slow pacing Step f/back taps Equipment Used FWW, 1 UE Reps/Minutes 2x10 alternate BLE Comments cued COG over NOMAN, improved foot cleareance and balance mini squat Reps/Minutes 2x5 standing shoulder extension with the wand Reps/Minutes 2 x 10 reps step ups Standing Exercise Name step ups Comments in parallel bars standing toe taps Standing Exercise Name toe taps on 6 step Reps/Minutes x 1 min Comments in parallel bars side steps Standing Exercise Name side steps in parallel bars 5 Standing Exercise Name balance board in parallel bars Reps/Minutes x 4 min 4 Standing Exercise Name standing marches Comments in parallel bars 2 Reps/Minutes 3 x 10 reps 1 Side bilateral PT-OP-T Assessment and Plan Start: 10/17/19 16:05 Freq: Status: Active Protocol: Document 01/07/20 15:29 [facility] (Rec: 01/07/20 15:38 [facility] [id number]) Physical Therapy Assessment Assessment Summary Assessment Nahun did well today with treatment today. He has difficulty with stepping backward and this is where most of his falls seem to happen at home Physical Therapy Plan Frequency and Duration Frequency of Treatment 2x/Week Duration of Treatment 8 Plan of Care Start Date 12/19/19 Plan of Care End Date 02/13/20 Therapeutic Interventions Therapeutic Interventions Home Exercise Program,Manual Therapy,Neuromuscular Re- education,Patient/Caregiver Education,Self-Care/Home Management,Soft Tissue Mobilization,Therapeutic Exercises
--- NOTE | 2020-01-14 16:22 | PT.OTN ---
Current Diagnoses Malignant neoplasm of unspecified part of unspecified bronchus or lung (01/16/20) Malignant neoplasm of prostate (01/16/20) Physical Therapy Treatment Note PT-OP-A Visit Information Start: 10/17/19 16:05 Freq: Status: Active Protocol: Document 01/14/20 14:36 [facility] (Rec: 01/16/20 14:38 [facility] [id number]) Out-Patient Physical Therapy Visit Information Visit Information Visit Type Treatment Note Visit Start Time 14:30 Visit Stop Time 15:15 Total Visit Minutes 45 Visit Number 16 Number of SECONDARY SOCIAL STUDIES TEACHER Visits 0 PT-OP-B Current Condition Start: 10/17/19 16:05 Freq: Status: Active Protocol: Document 10/17/19 16:05 [facility] (Rec: 10/17/19 16:30 [facility] [id number]) Current Condition History of Current Condition Onset Date 2017 Current Complaints decreased balance especially in a posterior direction History of Current Condition Prostate cancer, small cell lung cancer, 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 He had chemo and radiation to the lung 2.5 years ago Radiation 2xms a day with chemo in the middle. He has't been able to return to sailing which is what he loves because of his decreased balance. He also reports symptoms of cancer related fatigue that also limits his ability to go out for walks. Pt ambulated with a single point cane and his walks beside him for assistance. He also has complaints of right sided shoulder pain. Prior Treatments and Tests hx of limited stage small cell lung cancer previously treated with 4 cycles of carboplatin etoposide with consolidation radiation therapy to the chest completed in September 2017. 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 He has extreme difficulty with standing for a hour, getting into and out of the bath, putting on shoes and socks, squating, and performing light activities around his home Functional Limitations- Mobility/Gait limited to 100 feet and gets tired in his legs, is here with a single point cane and has a walker but doesn't use it. PT-OP-C Subjective Start: 11/14/19 17:49 Freq: Status: Active Protocol: Document 01/14/20 14:36 [facility] (Rec: 01/16/20 14:38 [facility] [id number]) OP-PT Subjective Patient Comments Patient Comments pt reports he is fatigued today. PT-OP-D Balance Start: 10/23/19 10:21 Freq: Status: Active Protocol: Document 10/17/19 16:00 [facility] (Rec: 10/23/19 11:23 [facility] [email or web address]) [place] Balance Assessment Evaluation Sitting to Standing Ability Several Tries w/Hands Unsupported Stance Supervision- 2 minutes Sitting Unsupported, Feet on Floor Safely- 2 minutes Standing to Sitting Ability Assist, Use Legs on Chair Transfer Ability Safely, Hand Use Unsupported Stance- Eyes Closed 3 seconds Unsupported Stance- Eyes Open Supervision to maintain Reaching Forward Standing Supervision Needed Pick- Up Object From Floor Requires Supervision Look Behind Shoulder - Standing Supervision w/Turning Turning 360 Degrees Supervision/Verbal Cues Unsupported Stance, Alternating Feet on 4 Steps w/Supervision Stair Unsupported Tandem Stance Assist to Step-15 seconds Unilateral Leg Stance Lifts Leg/Unable to Hold Total Score [place]send Total Score (out of 56 points) 27 [place] Impairment Rating 20 to 39% Impaired (Score 34- 44) PT-OP-G Mobility & Gait Start: 10/23/19 10:21 Freq: Status: Active Protocol: Document 10/17/19 16:00 [facility] (Rec: 10/23/19 15:18 [facility] [email or web address]) OP Mobility Evaluation Bed Mobility Rolling difficulty rolling but SBA Supine to and from Sit SBA Transfers Sit to Stand Needs hands to support, CGA Bed to Chair Transfers CGA, needs hands to support OP Gait Assessment Gait Gait Assistance Required: Contact Guard Assist Distance (Feet) 50 Able to Maintain Weight Bearing Status Yes During Gait Assistive Devices Assistive Device Gait Belt,Straight Cane Orthotic/Prosthetic Devices or Brace: No Gait Deviations General Gait Pattern Antalgic,Decreased Stride Length,Wide Based Gait Factors Limiting Gait Function Factors Limiting Gait Function Poor Balance Comments Gait Comments 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 affects gait the most PT-OP-K Range of Motion Start: 10/17/19 16:05 Freq: Status: Active Protocol: Document 10/17/19 16:00 [facility] (Rec: 10/23/19 15:18 [facility] [email or web address]) Ankle and Foot Goniometric Range of Motion Ankle and Foot Right Ankle/Foot ROM WFL No Dorsiflexion with Knee Extended 5 Left Ankle/Foot ROM WFL No Dorsiflexion with Knee Extended 5 Ankle and Foot ROM Limitations ROM Limitations Soft Tissue Tightness Comments tightness in the gastroc soleus muscle contributes to decreased ankle ROM B PT-OP-M Strength Start: 10/17/19 16:05 Freq: Status: Active Protocol: Document 10/17/19 16:00 [facility] (Rec: 10/23/19 15:18 [facility] [email or web address]) Ankle/Foot Strength Ankle and Foot Manual Muscle Testing Right Dorsiflexion (L4) 4 Good Plantarflexion (S1) 4 Good Inversion 4 Good Eversion (S1) 4 Good Left Dorsiflexion (L4) 4 Good Plantarflexion (S1) 4 Good Inversion 4 Good Eversion (S1) 4 Good PT-OP-Q Treatments Start: 10/17/19 16:05 Freq: Status: Active Protocol: Document 01/14/20 16:18 [facility] (Rec: 01/16/20 16:21 [facility] [email or web address]) Cardio Equipment Recumbent Elliptical ([id number]) Duration (Minutes) 5 Resistance 1 Gym Equipment Shuttle Recovery Bilateral Squats Details 50# Reps/Time 3x 10 reps Shuttle Balance 1 Details shuttle balance red clips Comments feet together, feet apart, tandem stance, eyes open, eyes closed Therapeutic Exercises Sitting Exercises HABD TB Resistance AROM (unable use Tb today R shld pain) Reps/Minutes 2x10 Comments cued relaxed shld, stopped Tb use due to L medial humerous discomfort. scap retractions Side bilateral Reps/Minutes 3 sec hold x10 seated shoulder ER Sitting Exercise Name seated shoulder ER Side bilateral Resistance Tb #1 Reps/Minutes 2 x 10 reps Comments cued scap depression seated shoulder Sitting Exercise Name Shld flexion Side bilateral Equipment Used AROM Reps/Minutes 2 x10 (hold TB #1 as a dowel) Comments cued tolerant range seated theraband rows Sitting Exercise Name seated theraband rows Side bilateral Resistance TB #1 Reps/Minutes 2 x 15 reps Comments cued 90 deg elbow, shld depression awareness 1 Sitting Exercise Name shoulder praveen Side right Reps/Minutes x 4 min Standing Exercises heel raises Side bilateral Equipment Used rail Reps/Minutes x10 Comments cued slow pacing Step f/back taps Equipment Used FWW, 1 UE Reps/Minutes 2x10 alternate BLE Comments cued COG over NOMAN, improved foot cleareance and balance mini squat Reps/Minutes 2x5 standing shoulder extension with the wand Reps/Minutes 2 x 10 reps step ups Standing Exercise Name step ups Comments in parallel bars standing toe taps Standing Exercise Name toe taps on 6 step Reps/Minutes x 1 min Comments in parallel bars side steps Standing Exercise Name side steps in parallel bars 5 Standing Exercise Name balance board in parallel bars Reps/Minutes x 4 min 4 Standing Exercise Name standing marches Comments in parallel bars 3 Standing Exercise Name seated shoulder extension Reps/Minutes 3 x 10 reps 2 Reps/Minutes 3 x 10 reps PT-OP-T Assessment and Plan Start: 10/17/19 16:05 Freq: Status: Active Protocol: Document 01/14/20 16:18 [facility] (Rec: 01/16/20 16:21 [facility] [email or web address]) Physical Therapy Assessment Assessment Summary Assessment Nahun is tolerating all exercises well with decreased complaints of fatigue Physical Therapy Plan Frequency and Duration Frequency of Treatment 2x/Week Duration of Treatment 8 Plan of Care Start Date 12/19/19 Plan of Care End Date 02/13/20 Therapeutic Interventions Therapeutic Interventions Home Exercise Program,Manual Therapy,Neuromuscular Re- education,Patient/Caregiver Education,Self-Care/Home Management,Soft Tissue Mobilization,Therapeutic Exercises Next Visit Focus/Plan Next Note Type Treatment Note Next Visit Plan Assess response to UE HEP review, standing ex at rail. Continue working on balance stabilization exercises, shoulder ROM and strengthening
--- NOTE | 2020-01-16 16:28 | PT.OTN ---
Current Diagnoses Malignant neoplasm of unspecified part of unspecified bronchus or lung (01/16/20) Malignant neoplasm of prostate (01/16/20) Physical Therapy Treatment Note PT-OP-A Visit Information Start: 10/17/19 16:05 Freq: Status: Active Protocol: Document 01/16/20 16:23 [facility] (Rec: 01/16/20 16:28 [facility] [email or web address]) Out-Patient Physical Therapy Visit Information Visit Information Visit Type Treatment Note Visit Start Time 14:30 Visit Stop Time 15:15 Total Visit Minutes 45 Visit Number 17 Number of EDUCATION TEACHER Visits 0 PT-OP-B Current Condition Start: 10/17/19 16:05 Freq: Status: Active Protocol: Document 10/17/19 16:05 [facility] (Rec: 10/17/19 16:30 [facility] [id number]) Current Condition History of Current Condition Onset Date 2017 Current Complaints decreased balance especially in a posterior direction History of Current Condition Prostate cancer, small cell lung cancer, 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 He had chemo and radiation to the lung 2.5 years ago Radiation 2xms a day with chemo in the middle. He has't been able to return to sailing which is what he loves because of his decreased balance. He also reports symptoms of cancer related fatigue that also limits his ability to go out for walks. Pt ambulated with a single point cane and his walks beside him for assistance. He also has complaints of right sided shoulder pain. Prior Treatments and Tests hx of limited stage small cell lung cancer previously treated with 4 cycles of carboplatin etoposide with consolidation radiation therapy to the chest completed in September 2017. 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 He has extreme difficulty with standing for a hour, getting into and out of the bath, putting on shoes and socks, squating, and performing light activities around his home Functional Limitations- Mobility/Gait limited to 100 feet and gets tired in his legs, is here with a single point cane and has a walker but doesn't use it. PT-OP-C Subjective Start: 11/14/19 17:49 Freq: Status: Active Protocol: Document 01/16/20 16:23 [facility] (Rec: 01/16/20 16:28 [facility] [email or web address]) OP-PT Subjective Patient Comments Patient Comments Pt reports he is doing well, no new complaints PT-OP-D Balance Start: 10/23/19 10:21 Freq: Status: Active Protocol: Document 10/17/19 16:00 [facility] (Rec: 10/23/19 11:23 [facility] [email or web address]) [place] Balance Assessment Evaluation Sitting to Standing Ability Several Tries w/Hands Unsupported Stance Supervision- 2 minutes Sitting Unsupported, Feet on Floor Safely- 2 minutes Standing to Sitting Ability Assist, Use Legs on Chair Transfer Ability Safely, Hand Use Unsupported Stance- Eyes Closed 3 seconds Unsupported Stance- Eyes Open Supervision to maintain Reaching Forward Standing Supervision Needed Pick- Up Object From Floor Requires Supervision Look Behind Shoulder - Standing Supervision w/Turning Turning 360 Degrees Supervision/Verbal Cues Unsupported Stance, Alternating Feet on 4 Steps w/Supervision Stair Unsupported Tandem Stance Assist to Step-15 seconds Unilateral Leg Stance Lifts Leg/Unable to Hold Total Score [place] Total Score (out of 56 points) 27 [place] Impairment Rating 20 to 39% Impaired (Score 34- 44) PT-OP-G Mobility & Gait Start: 10/23/19 10:21 Freq: Status: Active Protocol: Document 10/17/19 16:00 [facility] (Rec[facility] 10/23/19 [email or web address] Mobility Evaluation Bed Mobility Rolling difficulty rolling but SBA Supine to and from Sit SBA Transfers Sit to Stand Needs hands to support, CGA Bed to Chair Transfers CGA, needs hands to support OP Gait Assessment Gait Gait Assistance Required: Contact Guard Assist Distance (Feet) 50 Able to Maintain Weight Bearing Status Yes During Gait Assistive Devices Assistive Device Gait Belt,Straight Cane Orthotic/Prosthetic Devices or Brace: No Gait Deviations General Gait Pattern Antalgic,Decreased Stride Length,Wide Based Gait Factors Limiting Gait Function Factors Limiting Gait Function Poor Balance Comments Gait Comments 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 affects gait the most PT-OP-K Range of Motion Start: 10/17/19 16:05 Freq: Status: Active Protocol: Document 10/17/19 16:00 [facility] (Rec: 10/23/19 15:18 [facility] [email or web address]) Ankle and Foot Goniometric Range of Motion Ankle and Foot Right Ankle/Foot ROM WFL No Dorsiflexion with Knee Extended 5 Left Ankle/Foot ROM WFL No Dorsiflexion with Knee Extended 5 Ankle and Foot ROM Limitations ROM Limitations Soft Tissue Tightness Comments tightness in the gastroc soleus muscle contributes to decreased ankle ROM B PT-OP-M Strength Start: 10/17/19 16:05 Freq: Status: Active Protocol: Document 10/17/19 16:00 [facility] (Rec: 10/23/19 15:18 [facility] [email or web address]) Ankle/Foot Strength Ankle and Foot Manual Muscle Testing Right Dorsiflexion (L4) 4 Good Plantarflexion (S1) 4 Good Inversion 4 Good Eversion (S1) 4 Good Left Dorsiflexion (L4) 4 Good Plantarflexion (S1) 4 Good Inversion 4 Good Eversion (S1) 4 Good PT-OP-Q Treatments Start: 10/17/19 16:05 Freq: Status: Active Protocol: Document 01/16/20 16:23 [facility] (Rec: 01/16/20 16:28 [facility] [email or web address]) Cardio Equipment Recumbent Elliptical (Biodex) Duration (Minutes) 5 Resistance 1 Gym Equipment Shuttle Balance 1 Details shuttle balance red clips Comments feet together, feet apart, tandem stance, eyes open, eyes closed Therapeutic Exercises Sitting Exercises scap retractions Side bilateral Reps/Minutes 3 sec hold x10 seated shoulder ER Sitting Exercise Name seated shoulder ER Side bilateral Resistance Tb #1 Reps/Minutes 2 x 10 reps Comments cued scap depression seated shoulder Sitting Exercise Name Shld flexion Side bilateral Equipment Used AROM Reps/Minutes 2 x10 (hold TB #1 as a dowel) Comments cued tolerant range seated theraband rows Sitting Exercise Name seated theraband rows Side bilateral Resistance TB #1 Reps/Minutes 2 x 15 reps Comments cued 90 deg elbow, shld depression awareness 1 Sitting Exercise Name shoulder praveen Side right Reps/Minutes x 4 min Standing Exercises heel raises Side bilateral Equipment Used rail Reps/Minutes x10 Comments cued slow pacing Step f/back taps Equipment Used FWW, 1 UE Reps/Minutes 2x10 alternate BLE Comments cued COG over NOMAN, improved foot cleareance and balance mini squat Reps/Minutes 2x5 standing shoulder extension with the wand Reps/Minutes 2 x 10 reps step ups Standing Exercise Name step ups Comments in parallel bars standing toe taps Standing Exercise Name toe taps on 6 step Reps/Minutes x 1 min Comments in parallel bars side steps Standing Exercise Name side steps in parallel bars 5 Standing Exercise Name balance board in parallel bars Reps/Minutes x 4 min 4 Standing Exercise Name standing marches Comments in parallel bars 3 Standing Exercise Name seated shoulder extension Reps/Minutes 3 x 10 reps 2 Reps/Minutes 3 x 10 reps 1 Standing Exercise Name standing calf raises Side bilateral Reps/Minutes x 10 reps PT-OP-T Assessment and Plan Start: 10/17/19 16:05 Freq: Status: Active Protocol: Document 01/16/20 16:23 [facility] (Rec: 01/16/20 16:28 [facility] [email or web address]) Physical Therapy Assessment Assessment Summary Assessment Nahun is able to take bigger steps now in a posterior direction in the parallel bars Physical Therapy Plan Frequency and Duration Frequency of Treatment 2x/Week Duration of Treatment 8 Plan of Care Start Date 12/19/19 Plan of Care End Date 02/13/20
--- NOTE | 2020-01-21 14:33 | PT.OTN ---
Current Diagnoses Malignant neoplasm of unspecified part of unspecified bronchus or lung (01/21/20) Malignant neoplasm of prostate (01/21/20) Physical Therapy Treatment Note PT-OP-A Visit Information Start: 10/17/19 16:05 Freq: Status: Active Protocol: Document 01/21/20 14:19 [facility] (Rec: 01/21/20 14:32 [facility] [email or web address]) Out-Patient Physical Therapy Visit Information Visit Information Visit Type Treatment Note Visit Start Time 11:15 Visit Stop Time 12:00 Total Visit Minutes 45 Visit Number 18 Number of SCHOOL PSYCHOLOGY PROFESSOR Visits 0 PT-OP-B Current Condition Start: 10/17/19 16:05 Freq: Status: Active Protocol: Document 10/17/19 16:05 [facility] (Rec: 10/17/19 16:30 [facility] [id number]) Current Condition History of Current Condition Onset Date 2017 Current Complaints decreased balance especially in a posterior direction History of Current Condition Prostate cancer, small cell lung cancer, 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 He had chemo and radiation to the lung 2.5 years ago Radiation 2xms a day with chemo in the middle. He has't been able to return to sailing which is what he loves because of his decreased balance. He also reports symptoms of cancer related fatigue that also limits his ability to go out for walks. Pt ambulated with a single point cane and his walks beside him for assistance. He also has complaints of right sided shoulder pain. Prior Treatments and Tests hx of limited stage small cell lung cancer previously treated with 4 cycles of carboplatin etoposide with consolidation radiation therapy to the chest completed in September 2017. 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 He has extreme difficulty with standing for a hour, getting into and out of the bath, putting on shoes and socks, squating, and performing light activities around his home Functional Limitations- Mobility/Gait limited to 100 feet and gets tired in his legs, is here with a single point cane and has a walker but doesn't use it. PT-OP-C Subjective Start: 11/14/19 17:49 Freq: Status: Active Protocol: Document 01/21/20 14:19 [facility] (Rec: 01/21/20 14:32 [facility] [email or web address]) OP-PT Subjective Patient Comments Patient Comments Nahun reports he took a fall two days ago as he was trying to walk carrying a box. He tripped and fell landing on his left elbow and hip. He states he didn't sleep well at all last night and had shoulder pain at night. PT-OP-D Balance Start: 10/23/19 10:21 Freq: Status: Active Protocol: Document 10/17/19 16:00 [facility] (Rec: 10/23/19 11:23 [facility] [email or web address]) [place] Balance Assessment Evaluation Sitting to Standing Ability Several Tries w/Hands Unsupported Stance Supervision- 2 minutes Sitting Unsupported, Feet on Floor Safely- 2 minutes Standing to Sitting Ability Assist, Use Legs on Chair Transfer Ability Safely, Hand Use Unsupported Stance- Eyes Closed 3 seconds Unsupported Stance- Eyes Open Supervision to maintain Reaching Forward Standing Supervision Needed Pick- Up Object From Floor Requires Supervision Look Behind Shoulder - Standing Supervision w/Turning Turning 360 Degrees Supervision/Verbal Cues Unsupported Stance, Alternating Feet on 4 Steps w/Supervision Stair Unsupported Tandem Stance Assist to Step-15 seconds Unilateral Leg Stance Lifts Leg/Unable to Hold Total Score [place]send Total Score (out of 56 points) 27 [place] Impairment Rating 20 to 39% Impaired (Score 34- 44) PT-OP-G Mobility & Gait Start: 10/23/19 10:21 Freq: Status: Active Protocol: Document 10/17/19 16:00 [facility] (Rec: 10/23/19 15:18 [facility] [email or web address]) OP Mobility Evaluation Bed Mobility Rolling difficulty rolling but SBA Supine to and from Sit SBA Transfers Sit to Stand Needs hands to support, CGA Bed to Chair Transfers CGA, needs hands to support OP Gait Assessment Gait Gait Assistance Required: Contact Guard Assist Distance (Feet) 50 Able to Maintain Weight Bearing Status Yes During Gait Assistive Devices Assistive Device Gait Belt,Straight Cane Orthotic/Prosthetic Devices or Brace: No Gait Deviations General Gait Pattern Antalgic,Decreased Stride Length,Wide Based Gait Factors Limiting Gait Function Factors Limiting Gait Function Poor Balance Comments Gait Comments 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 affects gait the most PT-OP-K Range of Motion Start: 10/17/19 16:05 Freq: Status: Active Protocol: Document 10/17/19 16:00 [facility] (Rec: 10/23/19 15:18 [facility] [email or web address]) Ankle and Foot Goniometric Range of Motion Ankle and Foot Right Ankle/Foot ROM WFL No Dorsiflexion with Knee Extended 5 Left Ankle/Foot ROM WFL No Dorsiflexion with Knee Extended 5 Ankle and Foot ROM Limitations ROM Limitations Soft Tissue Tightness Comments tightness in the gastroc soleus muscle contributes to decreased ankle ROM B PT-OP-M Strength Start: 10/17/19 16:05 Freq: Status: Active Protocol: Document 10/17/19 16:00 [facility] (Rec: 10/23/19 15:18 [facility] [email or web address]) Ankle/Foot Strength Ankle and Foot Manual Muscle Testing Right Dorsiflexion (L4) 4 Good Plantarflexion (S1) 4 Good Inversion 4 Good Eversion (S1) 4 Good Left Dorsiflexion (L4) 4 Good Plantarflexion (S1) 4 Good Inversion 4 Good Eversion (S1) 4 Good PT-OP-Q Treatments Start: 10/17/19 16:05 Freq: Status: Active Protocol: Document 01/21/20 14:19 [facility] (Rec: 01/21/20 14:32 [facility] [email or web address]) Cardio Equipment Recumbent Elliptical (Biodex) Duration (Minutes) 5 Resistance 1 Gym Equipment Shuttle Recovery Bilateral Squats Details 50# Reps/Time 3x 10 reps Therapeutic Exercises Sitting Exercises scap retractions Side bilateral Reps/Minutes 3 sec hold x10 1 Sitting Exercise Name shoulder praveen Side right Reps/Minutes x 4 min Gait Training Gait Activity gait level surface Device Used FWW Level of Assistance CGA Surface level Distance/Duration 500 Treatment Focus increase stride and foot clearance R>L Comments cued body closer to FWW, increase stride length PT-OP-R Modalities Start: 01/21/20 14:32 Freq: Status: Active Protocol: Document 01/21/20 14:33 [facility] (Rec: 01/21/20 14:33 [facility] [email or web address]) Hot Pack/Cold Pack Treatment Cold Pack Location left shoulder Patient Position Sitting Treatment Duration (minutes) 10 Patient Tolerance Good PT-OP-T Assessment and Plan Start: 10/17/19 16:05 Freq: Status: Active Protocol: Document 01/21/20 14:19 [facility] (Rec: 01/21/20 14:32 [facility] [email or web address]) Physical Therapy Assessment Assessment Summary Assessment treatment modified today as Nahun was sore on the left shoulder from his fall. He was in too much pain to continue exercises. I ended his treatment today with ice pack. Physical Therapy Plan Frequency and Duration Frequency of Treatment 2x/Week Duration of Treatment 8 Plan of Care Start Date 12/19/19 Plan of Care End Date 02/13/20 Next Visit Focus/Plan Next Note Type Treatment Note Next Visit Plan assess pts shoulder pain due to fall next visit and continue with stabilizing exercises if patient is able.
--- NOTE | 2020-01-23 16:52 | PT.OTN ---
Current Diagnoses Malignant neoplasm of unspecified part of unspecified bronchus or lung (01/23/20) Malignant neoplasm of prostate (01/23/20) Physical Therapy Treatment Note PT-OP-A Visit Information Start: 10/17/19 16:05 Freq: Status: Active Protocol: Document 01/23/20 16:48 [facility] (Rec: 01/23/20 16:52 [facility] [email or web address]) Out-Patient Physical Therapy Visit Information Visit Information Visit Type Treatment Note Visit Start Time 11:30 Visit Stop Time 12:00 Total Visit Minutes 30 Visit Number 19 Number of [employer]PERINTENDENT Visits 0 PT-OP-B Current Condition Start: 10/17/19 16:05 Freq: Status: Active Protocol: Document 10/17/19 16:05 [facility] (Rec: 10/17/19 16:30 [facility] [id number]) Current Condition History of Current Condition Onset Date 2017 Current Complaints decreased balance especially in a posterior direction History of Current Condition Prostate cancer, small cell lung cancer, 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 He had chemo and radiation to the lung 2.5 years ago Radiation 2xms a day with chemo in the middle. He has't been able to return to sailing which is what he loves because of his decreased balance. He also reports symptoms of cancer related fatigue that also limits his ability to go out for walks. Pt ambulated with a single point cane and his walks beside him for assistance. He also has complaints of right sided shoulder pain. Prior Treatments and Tests hx of limited stage small cell lung cancer previously treated with 4 cycles of carboplatin etoposide with consolidation radiation therapy to the chest completed in September 2017. 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 He has extreme difficulty with standing for a hour, getting into and out of the bath, putting on shoes and socks, squating, and performing light activities around his home Functional Limitations- Mobility/Gait limited to 100 feet and gets tired in his legs, is here with a single point cane and has a walker but doesn't use it. PT-OP-C Subjective Start: 11/14/19 17:49 Freq: Status: Active Protocol: Document 01/23/20 16:48 [facility] (Rec: 01/23/20 16:52 [facility] [email or web address]) OP-PT Subjective Patient Comments Patient Comments Pt reports he is still very sore in his left shoulder from his fall and has low energy today PT-OP-D Balance Start: 10/23/19 10:21 Freq: Status: Active Protocol: Document 10/17/19 16:00 [facility] (Rec: 10/23/19 11:23 [facility] [email or web address]) [place] Balance Assessment Evaluation Sitting to Standing Ability Several Tries w/Hands Unsupported Stance Supervision- 2 minutes Sitting Unsupported, Feet on Floor Safely- 2 minutes Standing to Sitting Ability Assist, Use Legs on Chair Transfer Ability Safely, Hand Use Unsupported Stance- Eyes Closed 3 seconds Unsupported Stance- Eyes Open Supervision to maintain Reaching Forward Standing Supervision Needed Pick- Up Object From Floor Requires Supervision Look Behind Shoulder - Standing Supervision w/Turning Turning 360 Degrees Supervision/Verbal Cues Unsupported Stance, Alternating Feet on 4 Steps w/Supervision Stair Unsupported Tandem Stance Assist to Step-15 seconds Unilateral Leg Stance Lifts Leg/Unable to Hold Total Score [place]send Total Score (out of 56 points) 27 [place] Impairment Rating 20 to 39% Impaired (Score 34- 44) PT-OP-G Mobility & Gait Start: 10/23/19 10:21 Freq: Status: Active Protocol: Document 10/17/19 16:00 [facility] (Rec: 10/23/19 15:18 [facility] [email or web address]) OP Mobility Evaluation Bed Mobility Rolling difficulty rolling but SBA Supine to and from Sit SBA Transfers Sit to Stand Needs hands to support, CGA Bed to Chair Transfers CGA, needs hands to support OP Gait Assessment Gait Gait Assistance Required: Contact Guard Assist Distance (Feet) 50 Able to Maintain Weight Bearing Status Yes During Gait Assistive Devices Assistive Device Gait Belt,Straight Cane Orthotic/Prosthetic Devices or Brace: No Gait Deviations General Gait Pattern Antalgic,Decreased Stride Length,Wide Based Gait Factors Limiting Gait Function Factors Limiting Gait Function Poor Balance Comments Gait Comments 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 affects gait the most PT-OP-K Range of Motion Start: 10/17/19 16:05 Freq: Status: Active Protocol: Document 10/17/19 16:00 [facility] (Rec: 10/23/19 15:18 [facility] [email or web address]) Ankle and Foot Goniometric Range of Motion Ankle and Foot Right Ankle/Foot ROM WFL No Dorsiflexion with Knee Extended 5 Left Ankle/Foot ROM WFL No Dorsiflexion with Knee Extended 5 Ankle and Foot ROM Limitations ROM Limitations Soft Tissue Tightness Comments tightness in the gastroc soleus muscle contributes to decreased ankle ROM B PT-OP-M Strength Start: 10/17/19 16:05 Freq: Status: Active Protocol: Document 10/17/19 16:00 [facility] (Rec: 10/23/19 15:18 [facility] [email or web address]) Ankle/Foot Strength Ankle and Foot Manual Muscle Testing Right Dorsiflexion (L4) 4 Good Plantarflexion (S1) 4 Good Inversion 4 Good Eversion (S1) 4 Good Left Dorsiflexion (L4) 4 Good Plantarflexion (S1) 4 Good Inversion 4 Good Eversion (S1) 4 Good PT-OP-Q Treatments Start: 10/17/19 16:05 Freq: Status: Active Protocol: Document 01/23/20 16:48 [facility] (Rec: 01/23/20 16:52 [facility] [email or web address]) Cardio Equipment Recumbent Stepper (Sci-Fit) Duration (Minutes) 5 Resistance level 2 Other no arm use today due to pain Therapeutic Exercises Standing Exercises heel raises Side bilateral Equipment Used rail Reps/Minutes x10 Comments cued slow pacing Step f/back taps Equipment Used FWW, 1 UE Reps/Minutes 2x10 alternate BLE Comments cued COG over NOMAN, improved foot cleareance and balance mini squat Reps/Minutes 2x5 standing shoulder extension with the wand Reps/Minutes 2 x 10 reps step ups Standing Exercise Name step ups Comments in parallel bars standing toe taps Standing Exercise Name toe taps on 6 step Reps/Minutes x 1 min Comments in parallel bars side steps Standing Exercise Name side steps in parallel bars 5 Standing Exercise Name balance board in parallel bars Reps/Minutes x 4 min 4 Standing Exercise Name standing marches Comments in parallel bars 1 Standing Exercise Name standing calf raises Side bilateral Reps/Minutes x 10 reps PT-OP-R Modalities Start: 01/21/20 14:32 Freq: Status: Active Protocol: Document 01/21/20 14:33 [facility] (Rec: 01/21/20 14:33 [facility] [email or web address]) Hot Pack/Cold Pack Treatment Cold Pack Location left shoulder Patient Position Sitting Treatment Duration (minutes) 10 Patient Tolerance Good PT-OP-T Assessment and Plan Start: 10/17/19 16:05 Freq: Status: Active Protocol: Document 01/23/20 16:48 [facility] (Rec: 01/23/20 16:52 [facility] [email or web address]) Physical Therapy Assessment Assessment Summary Assessment Nahun has only tolerated 30 minutes of PT this past 2 sessions as he has been very fatigued. He was not able to do exercise with his left shoulder today Physical Therapy Plan Frequency and Duration Frequency of Treatment 2x/Week Duration of Treatment 8 Plan of Care Start Date 12/19/19 Plan of Care End Date 02/13/20 Next Visit Focus/Plan Next Note Type Treatment Note Next Visit Plan Begin to review all exercises for home as Nahun is nearing the end of his PT visits
--- NOTE | 2020-01-28 15:13 | PT.OTN ---
Current Diagnoses Malignant neoplasm of unspecified part of unspecified bronchus or lung (01/28/20) Malignant neoplasm of prostate (01/28/20) Physical Therapy Treatment Note PT-OP-A Visit Information Start: 10/17/19 16:05 Freq: Status: Active Protocol: Document 01/28/20 15:09 [facility] (Rec: 01/28/20 15:13 [facility] [email or web address]) Out-Patient Physical Therapy Visit Information Visit Information Visit Type Treatment Note Visit Start Time 13:45 Visit Stop Time 14:25 Total Visit Minutes 40 Visit Number 20 PT-OP-B Current Condition Start: 10/17/19 16:05 Freq: Status: Active Protocol: Document 10/17/19 16:05 [facility] (Rec: 10/17/19 16:30 [facility] [id number]) Current Condition History of Current Condition Onset Date 2017 Current Complaints decreased balance especially in a posterior direction History of Current Condition Prostate cancer, small cell lung cancer, 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 He had chemo and radiation to the lung 2.5 years ago Radiation 2xms a day with chemo in the middle. He has't been able to return to sailing which is what he loves because of his decreased balance. He also reports symptoms of cancer related fatigue that also limits his ability to go out for walks. Pt ambulated with a single point cane and his walks beside him for assistance. He also has complaints of right sided shoulder pain. Prior Treatments and Tests hx of limited stage small cell lung cancer previously treated with 4 cycles of carboplatin etoposide with consolidation radiation therapy to the chest completed in September 2017. 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 He has extreme difficulty with standing for a hour, getting into and out of the bath, putting on shoes and socks, squating, and performing light activities around his home Functional Limitations- Mobility/Gait limited to 100 feet and gets tired in his legs, is here with a single point cane and has a walker but doesn't use it. PT-OP-C Subjective Start: 11/14/19 17:49 Freq: Status: Active Protocol: Document 01/28/20 15:09 [facility] (Rec: 01/28/20 15:13 [facility] [email or web address]) OP-PT Subjective Patient Comments Patient Comments Nahun stanleyts he is doing better overall today, his shoulder has only been huring him at night. PT-OP-D Balance Start: 10/23/19 10:21 Freq: Status: Active Protocol: Document 10/17/19 16:00 [facility] (Rec: 10/23/19 11:23 [facility] [email or web address]) [place] Balance Assessment Evaluation Sitting to Standing Ability Several Tries w/Hands Unsupported Stance Supervision- 2 minutes Sitting Unsupported, Feet on Floor Safely- 2 minutes Standing to Sitting Ability Assist, Use Legs on Chair Transfer Ability Safely, Hand Use Unsupported Stance- Eyes Closed 3 seconds Unsupported Stance- Eyes Open Supervision to maintain Reaching Forward Standing Supervision Needed Pick- Up Object From Floor Requires Supervision Look Behind Shoulder - Standing Supervision w/Turning Turning 360 Degrees Supervision/Verbal Cues Unsupported Stance, Alternating Feet on 4 Steps w/Supervision Stair Unsupported Tandem Stance Assist to Step-15 seconds Unilateral Leg Stance Lifts Leg/Unable to Hold Total Score [place] Total Score (out of 56 points) 27 [place] Impairment Rating 20 to 39% Impaired (Score 34- 44) PT-OP-G Mobility & Gait Start: 10/23/19 10:21 Freq: Status: Active Protocol: Document 10/17/19 16:00 [facility] (Rec: 10/23/19 15:18 [facility] [email or web address]) OP Mobility Evaluation Bed Mobility Rolling difficulty rolling but SBA Supine to and from Sit SBA Transfers Sit to Stand Needs hands to support, CGA Bed to Chair Transfers CGA, needs hands to support OP Gait Assessment Gait Gait Assistance Required: Contact Guard Assist Distance (Feet) 50 Able to Maintain Weight Bearing Status Yes During Gait Assistive Devices Assistive Device Gait Belt,Straight Cane Orthotic/Prosthetic Devices or Brace: No Gait Deviations General Gait Pattern Antalgic,Decreased Stride Length,Wide Based Gait Factors Limiting Gait Function Factors Limiting Gait Function Poor Balance Comments Gait Comments 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 affects gait the most PT-OP-K Range of Motion Start: 10/17/19 16:05 Freq: Status: Active Protocol: Document 10/17/19 16:00 [facility] (Rec: 10/23/19 15:18 [facility] [email or web address]) Ankle and Foot Goniometric Range of Motion Ankle and Foot Right Ankle/Foot ROM WFL No Dorsiflexion with Knee Extended 5 Left Ankle/Foot ROM WFL No Dorsiflexion with Knee Extended 5 Ankle and Foot ROM Limitations ROM Limitations Soft Tissue Tightness Comments tightness in the gastroc soleus muscle contributes to decreased ankle ROM B PT-OP-M Strength Start: 10/17/19 16:05 Freq: Status: Active Protocol: Document 10/17/19 16:00 [facility] (Rec: 10/23/19 15:18 [facility] [email or web address]) Ankle/Foot Strength Ankle and Foot Manual Muscle Testing Right Dorsiflexion (L4) 4 Good Plantarflexion (S1) 4 Good Inversion 4 Good Eversion (S1) 4 Good Left Dorsiflexion (L4) 4 Good Plantarflexion (S1) 4 Good Inversion 4 Good Eversion (S1) 4 Good PT-OP-Q Treatments Start: 10/17/19 16:05 Freq: Status: Active Protocol: Document 01/28/20 15:09 [facility] (Rec: 01/28/20 15:13 [facility] [email or web address]) Cardio Equipment Recumbent Elliptical (Biodex) Duration (Minutes) 5 Resistance 1 Gym Equipment Shuttle Recovery Bilateral Squats Details 50# Reps/Time 2x 10 reps Shuttle Balance 1 Details shuttle balance red clips Comments feet together, feet apart, tandem stance, eyes open, eyes closed Therapeutic Exercises Sitting Exercises seated shoulder ER Sitting Exercise Name seated shoulder ER Side bilateral Resistance Tb #1 Reps/Minutes 2 x 10 reps Comments cued scap depression seated shoulder Sitting Exercise Name Shld flexion Side bilateral Equipment Used AROM Reps/Minutes 2 x10 (hold TB #1 as a dowel) Comments cued tolerant range seated theraband rows Sitting Exercise Name seated theraband rows Side bilateral Resistance TB #1 Reps/Minutes 2 x 15 reps Comments cued 90 deg elbow, shld depression awareness Standing Exercises heel raises Side bilateral Equipment Used rail Reps/Minutes x10 Comments cued slow pacing Step f/back taps Equipment Used FWW, 1 UE Reps/Minutes 2x10 alternate BLE Comments cued COG over NOMAN, improved foot cleareance and balance mini squat Reps/Minutes 2x5 standing shoulder extension with the wand Reps/Minutes 2 x 10 reps 3 Standing Exercise Name seated shoulder extension Reps/Minutes 3 x 10 reps 2 Reps/Minutes 3 x 10 reps 1 Standing Exercise Name standing calf raises Side bilateral Reps/Minutes x 10 reps PT-OP-R Modalities Start: 01/21/20 14:32 Freq: Status: Active Protocol: Document 01/21/20 14:33 [facility] (Rec: 01/21/20 14:33 [facility] [email or web address]) Hot Pack/Cold Pack Treatment Cold Pack Location left shoulder Patient Position Sitting Treatment Duration (minutes) 10 Patient Tolerance Good PT-OP-T Assessment and Plan Start: 10/17/19 16:05 Freq: Status: Active Protocol: Document 01/28/20 15:09 [facility] (Rec: 01/28/20 15:13 [facility] [email or web address]) Physical Therapy Assessment Assessment Summary Assessment Nahun tolerated today's treatment so much better today and did not have the shoulder pain he did last week. Focus on home program and education on Nahun using a assistive device in the house to prevent falls Physical Therapy Plan Frequency and Duration Frequency of Treatment 2x/Week Duration of Treatment 8 Plan of Care Start Date 12/19/19 Plan of Care End Date 02/13/20 Therapeutic Interventions Therapeutic Interventions Home Exercise Program,Manual Therapy,Neuromuscular Re- education,Patient/Caregiver Education,Self-Care/Home Management,Soft Tissue Mobilization,Therapeutic Exercises Next Visit Focus/Plan Next Note Type Treatment Note Next Visit Plan Begin to review all exercises for home as Nahun is nearing the end of his PT visits
--- NOTE | 2020-01-30 18:13 | PT.OTN ---
Current Diagnoses Malignant neoplasm of unspecified part of unspecified bronchus or lung (01/30/20) Malignant neoplasm of prostate (01/30/20) Physical Therapy Treatment Note PT-OP-A Visit Information Start: 10/17/19 16:05 Freq: Status: Active Protocol: Document 01/30/20 18:11 [facility] (Rec: 01/30/20 18:13 [facility] [email or web address]) Out-Patient Physical Therapy Visit Information Visit Information Visit Type Treatment Note Visit Start Time 13:00 Visit Stop Time 13:45 Total Visit Minutes 45 Visit Number 21 PT-OP-B Current Condition Start: 10/17/19 16:05 Freq: Status: Active Protocol: Document 10/17/19 16:05 [facility] (Rec: 10/17/19 16:30 [facility] [id number]) Current Condition History of Current Condition Onset Date 2017 Current Complaints decreased balance especially in a posterior direction History of Current Condition Prostate cancer, small cell lung cancer, 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 He had chemo and radiation to the lung 2.5 years ago Radiation 2xms a day with chemo in the middle. He has't been able to return to sailing which is what he loves because of his decreased balance. He also reports symptoms of cancer related fatigue that also limits his ability to go out for walks. Pt ambulated with a single point cane and his walks beside him for assistance. He also has complaints of right sided shoulder pain. Prior Treatments and Tests hx of limited stage small cell lung cancer previously treated with 4 cycles of carboplatin etoposide with consolidation radiation therapy to the chest completed in September 2017. 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 He has extreme difficulty with standing for a hour, getting into and out of the bath, putting on shoes and socks, squating, and performing light activities around his home Functional Limitations- Mobility/Gait limited to 100 feet and gets tired in his legs, is here with a single point cane and has a walker but doesn't use it. PT-OP-C Subjective Start: 11/14/19 17:49 Freq: Status: Active Protocol: Document 01/30/20 18:11 [facility] (Rec: 01/30/20 18:13 [facility] [email or web address]) OP-PT Subjective Patient Comments Patient Comments Pt reports he is feeling more energy today PT-OP-D Balance Start: 10/23/19 10:21 Freq: Status: Active Protocol: Document 10/17/19 16:00 [facility] (Rec: 10/23/19 11:23 [facility] [email or web address]) [place] Balance Assessment Evaluation Sitting to Standing Ability Several Tries w/Hands Unsupported Stance Supervision- 2 minutes Sitting Unsupported, Feet on Floor Safely- 2 minutes Standing to Sitting Ability Assist, Use Legs on Chair Transfer Ability Safely, Hand Use Unsupported Stance- Eyes Closed 3 seconds Unsupported Stance- Eyes Open Supervision to maintain Reaching Forward Standing Supervision Needed Pick- Up Object From Floor Requires Supervision Look Behind Shoulder - Standing Supervision w/Turning Turning 360 Degrees Supervision/Verbal Cues Unsupported Stance, Alternating Feet on 4 Steps w/Supervision Stair Unsupported Tandem Stance Assist to Step-15 seconds Unilateral Leg Stance Lifts Leg/Unable to Hold Total Score [place] Total Score (out of 56 points) 27 [place] Impairment Rating 20 to 39% Impaired (Score 34- 44) PT-OP-G Mobility & Gait Start: 10/23/19 10:21 Freq: Status: Active Protocol: Document 10/17/19 16:00 [facility] (Rec: 10/23/19 15:18 [facility] [email or web address]) OP Mobility Evaluation Bed Mobility Rolling difficulty rolling but SBA Supine to and from Sit SBA Transfers Sit to Stand Needs hands to support, CGA Bed to Chair Transfers CGA, needs hands to support OP Gait Assessment Gait Gait Assistance Required: Contact Guard Assist Distance (Feet) 50 Able to Maintain Weight Bearing Status Yes During Gait Assistive Devices Assistive Device Gait Belt,Straight Cane Orthotic/Prosthetic Devices or Brace: No Gait Deviations General Gait Pattern Antalgic,Decreased Stride Length,Wide Based Gait Factors Limiting Gait Function Factors Limiting Gait Function Poor Balance Comments Gait Comments 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 affects gait the most PT-OP-K Range of Motion Start: 10/17/19 16:05 Freq: Status: Active Protocol: Document 10/17/19 16:00 [facility] (Rec: 10/23/19 15:18 [facility] [email or web address]) Ankle and Foot Goniometric Range of Motion Ankle and Foot Right Ankle/Foot ROM WFL No Dorsiflexion with Knee Extended 5 Left Ankle/Foot ROM WFL No Dorsiflexion with Knee Extended 5 Ankle and Foot ROM Limitations ROM Limitations Soft Tissue Tightness Comments tightness in the gastroc soleus muscle contributes to decreased ankle ROM B PT-OP-M Strength Start: 10/17/19 16:05 Freq: Status: Active Protocol: Document 10/17/19 16:00 [facility] (Rec: 10/23/19 15:18 [facility] [email or web address]) Ankle/Foot Strength Ankle and Foot Manual Muscle Testing Right Dorsiflexion (L4) 4 Good Plantarflexion (S1) 4 Good Inversion 4 Good Eversion (S1) 4 Good Left Dorsiflexion (L4) 4 Good Plantarflexion (S1) 4 Good Inversion 4 Good Eversion (S1) 4 Good PT-OP-Q Treatments Start: 10/17/19 16:05 Freq: Status: Active Protocol: Document 01/30/20 18:11 [facility] (Rec: 01/30/20 18:13 [facility] [email or web address]) Cardio Equipment Recumbent Elliptical (Biodex) Duration (Minutes) 5 Resistance 2 Gym Equipment Shuttle Recovery Bilateral Squats Details 50# Reps/Time 2x 10 reps Therapeutic Exercises Sitting Exercises scap retractions Side bilateral Reps/Minutes 3 sec hold x10 seated shoulder ER Sitting Exercise Name seated shoulder ER Side bilateral Resistance Tb #1 Reps/Minutes 2 x 10 reps Comments cued scap depression seated theraband rows Sitting Exercise Name seated theraband rows Side bilateral Resistance TB #1 Reps/Minutes 2 x 15 reps Comments cued 90 deg elbow, shld depression awareness 1 Sitting Exercise Name shoulder praveen Side right Reps/Minutes x 4 min Standing Exercises heel raises Side bilateral Equipment Used rail Reps/Minutes x10 Comments cued slow pacing Step f/back taps Equipment Used FWW, 1 UE Reps/Minutes 2x10 alternate BLE Comments cued COG over NOMAN, improved foot cleareance and balance mini squat Reps/Minutes 2x5 standing shoulder extension with the wand Reps/Minutes 2 x 10 reps step ups Standing Exercise Name step ups Comments in parallel bars side steps Standing Exercise Name side steps in parallel bars 4 Standing Exercise Name standing junees Comments in parallel bars 3 Standing Exercise Name seated shoulder extension Reps/Minutes 3 x 10 reps 2 Reps/Minutes 3 x 10 reps 1 Standing Exercise Name standing calf raises Side bilateral Reps/Minutes x 10 reps PT-OP-R Modalities Start: 01/21/20 14:32 Freq: Status: Active Protocol: Document 01/21/20 14:33 [facility] (Rec: 01/21/20 14:33 [facility] [email or web address]) Hot Pack/Cold Pack Treatment Cold Pack Location left shoulder Patient Position Sitting Treatment Duration (minutes) 10 Patient Tolerance Good PT-OP-T Assessment and Plan Start: 10/17/19 16:05 Freq: Status: Active Protocol: Document 01/30/20 18:11 [facility] (Rec: 01/30/20 18:13 [facility] [email or web address]) Physical Therapy Assessment Assessment Summary Assessment Nahun is demonstrating increased endurance, improve foot clearance with gait and sit-stand with greater ease Physical Therapy Plan Frequency and Duration Frequency of Treatment 2x/Week Duration of Treatment 8 Plan of Care Start Date 12/19/19 Plan of Care End Date 02/13/20
--- NOTE | 2020-02-09 15:28 | PT.OTN ---
Current Diagnoses Malignant neoplasm of unspecified part of unspecified bronchus or lung (02/06/20) Malignant neoplasm of prostate (02/06/20) Physical Therapy Treatment Note PT-OP-A Visit Information Start: 10/17/19 16:05 Freq: Status: Active Protocol: Document 02/06/20 14:30 [facility] (Rec: 02/09/20 15:28 [facility] [id number]) Out-Patient Physical Therapy Visit Information Visit Information Visit Type Treatment Note Visit Start Time 14:30 Visit Stop Time 15:15 Total Visit Minutes 45 Visit Number 22 Number of JIGMAKER Visits 0 PT-OP-B Current Condition Start: 10/17/19 16:05 Freq: Status: Active Protocol: Document 10/17/19 16:05 [facility] (Rec: 10/17/19 16:30 [facility] [id number]) Current Condition History of Current Condition Onset Date 2017 Current Complaints decreased balance especially in a posterior direction History of Current Condition Prostate cancer, small cell lung cancer, 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 He had chemo and radiation to the lung 2.5 years ago Radiation 2xms a day with chemo in the middle. He has't been able to return to sailing which is what he loves because of his decreased balance. He also reports symptoms of cancer related fatigue that also limits his ability to go out for walks. Pt ambulated with a single point cane and his walks beside him for assistance. He also has complaints of right sided shoulder pain. Prior Treatments and Tests hx of limited stage small cell lung cancer previously treated with 4 cycles of carboplatin etoposide with consolidation radiation therapy to the chest completed in September 2017. 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 He has extreme difficulty with standing for a hour, getting into and out of the bath, putting on shoes and socks, squating, and performing light activities around his home Functional Limitations- Mobility/Gait limited to 100 feet and gets tired in his legs, is here with a single point cane and has a walker but doesn't use it. PT-OP-C Subjective Start: 11/14/19 17:49 Freq: Status: Active Protocol: Document 02/06/20 14:30 [facility] (Rec: 02/09/20 15:28 [facility] [email or web address]) OP-PT Subjective Patient Comments Patient Comments Nahun is still feeling left sided shoulder pain from his last fall. He is better than last week but still feeling bruised. PT-OP-D Balance Start: 10/23/19 10:21 Freq: Status: Active Protocol: Document 10/17/19 16:00 [facility] (Rec: 10/23/19 11:23 [facility] [email or web address]) Townsend Balance Assessment Evaluation Sitting to Standing Ability Several Tries w/Hands Unsupported Stance Supervision- 2 minutes Sitting Unsupported, Feet on Floor Safely- 2 minutes Standing to Sitting Ability Assist, Use Legs on Chair Transfer Ability Safely, Hand Use Unsupported Stance- Eyes Closed 3 seconds Unsupported Stance- Eyes Open Supervision to maintain Reaching Forward Standing Supervision Needed Pick- Up Object From Floor Requires Supervision Look Behind Shoulder - Standing Supervision w/Turning Turning 360 Degrees Supervision/Verbal Cues Unsupported Stance, Alternating Feet on 4 Steps w/Supervision Stair Unsupported Tandem Stance Assist to Step-15 seconds Unilateral Leg Stance Lifts Leg/Unable to Hold Total Score Townsend Total Score (out of 56 points) 27 Townsend Impairment Rating 20 to 39% Impaired (Score 34- 44) PT-OP-G Mobility & Gait Start: 10/23/19 10:21 Freq: Status: Active Protocol: Document 10/17/19 16:00 [facility] (Rec: 10/23/19 15:18 [facility] [email or web address]) OP Mobility Evaluation Bed Mobility Rolling difficulty rolling but SBA Supine to and from Sit SBA Transfers Sit to Stand Needs hands to support, CGA Bed to Chair Transfers CGA, needs hands to support OP Gait Assessment Gait Gait Assistance Required: Contact Guard Assist Distance (Feet) 50 Able to Maintain Weight Bearing Status Yes During Gait Assistive Devices Assistive Device Gait Belt,Straight Cane Orthotic/Prosthetic Devices or Brace: No Gait Deviations General Gait Pattern Antalgic,Decreased Stride Length,Wide Based Gait Factors Limiting Gait Function Factors Limiting Gait Function Poor Balance Comments Gait Comments 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 affects gait the most PT-OP-K Range of Motion Start: 10/17/19 16:05 Freq: Status: Active Protocol: Document 10/17/19 16:00 [facility] (Rec: 10/23/19 15:18 [facility] [email or web address]) Ankle and Foot Goniometric Range of Motion Ankle and Foot Right Ankle/Foot ROM WFL No Dorsiflexion with Knee Extended 5 Left Ankle/Foot ROM WFL No Dorsiflexion with Knee Extended 5 Ankle and Foot ROM Limitations ROM Limitations Soft Tissue Tightness Comments tightness in the gastroc soleus muscle contributes to decreased ankle ROM B PT-OP-M Strength Start: 10/17/19 16:05 Freq: Status: Active Protocol: Document 10/17/19 16:00 [facility] (Rec: 10/23/19 15:18 [facility] [email or web address]) Ankle/Foot Strength Ankle and Foot Manual Muscle Testing Right Dorsiflexion (L4) 4 Good Plantarflexion (S1) 4 Good Inversion 4 Good Eversion (S1) 4 Good Left Dorsiflexion (L4) 4 Good Plantarflexion (S1) 4 Good Inversion 4 Good Eversion (S1) 4 Good PT-OP-Q Treatments Start: 10/17/19 16:05 Freq: Status: Active Protocol: Document 02/06/20 14:30 [facility] (Rec: 02/09/20 15:28 [facility] [email or web address]) Cardio Equipment Recumbent Elliptical (Biodex) Duration (Minutes) 5 Resistance 2 Gym Equipment Shuttle Recovery Bilateral Squats Details 50# Reps/Time 2x 10 reps Therapeutic Exercises Sitting Exercises scap retractions Side bilateral Reps/Minutes 3 sec hold x10 seated shoulder ER Sitting Exercise Name seated shoulder ER Side bilateral Resistance Tb #1 Reps/Minutes 2 x 10 reps Comments cued scap depression seated theraband rows Sitting Exercise Name seated theraband rows Side bilateral Resistance TB #1 Reps/Minutes 2 x 15 reps Comments cued 90 deg elbow, shld depression awareness 1 Sitting Exercise Name shoulder praveen Side right Reps/Minutes x 4 min Standing Exercises heel raises Standing Exercise Name HEP Side bilateral Equipment Used rail Reps/Minutes x10 Comments cued slow pacing mini squat Standing Exercise Name HEP Reps/Minutes 2x5 side steps Standing Exercise Name side steps in parallel bars HEP 4 Standing Exercise Name standing marches Comments in parallel bars 1 Standing Exercise Name standing calf raises Side bilateral Reps/Minutes x 10 reps PT-OP-R Modalities Start: 01/21/20 14:32 Freq: Status: Active Protocol: Document 01/21/20 14:33 [facility] (Rec: 01/21/20 14:33 [facility] [email or web address]) Hot Pack/Cold Pack Treatment Cold Pack Location left shoulder Patient Position Sitting Treatment Duration (minutes) 10 Patient Tolerance Good PT-OP-T Assessment and Plan Start: 10/17/19 16:05 Freq: Status: Active Protocol: Document 02/06/20 14:30 [facility] (Rec: 02/09/20 15:28 [facility] [email or web address]) Physical Therapy Assessment Goals Four Impairment poor ROM in the ankles contributing to decreased balance reactions House Servant Goal (LTG) Nahun presents with improved AROM of bilateral ankle joints and is independent with a home program for calf flexibility and ankle strengthening GOOD PROGRESS LTG Duration 8 weeks Three Impairment Cancer related fatigue Prison Goal (LTG) Improve score on the FACIT fatigue scale by 8 or more points Pt still very fatigued but able to complete his ther ex and balancing program with PT Two Impairment Antalgic gait pattern and limited walking distance to 2 blocks Prison Goal (LTG) Nahun is able to increase his ambulation distance to 5 blocks and he is walking 3 times a weeks with his Improvements with gait as we have switched Nahun to a FWW for improved balance. He is doing much better with gait in the clinic but isn't walking a lot out of our sessions in the clinic GOOD progress, Nahun has been able to go shopping with his partner in [facility] LTG Duration 8 weeks One Impairment Poor balance reactions and risk for falls House Servant Goal (LTG) Improve Townsend balance score from current score of 27 to 20 or better GOOD Progress Progress Towards Goals Progress Towards Goals Slow Progress - Other Progress Comments Nahun has made progress in PT however he has also had 3 falls at home since beginning therapy. He is not using a assistive device at home and is a fall risk without a assitive device. This was discussed in PT and I strongly encouraged Nahun to use a fww in his home to prevent further falls. Assessment Summary Assessment I really pushed today for Nahun to use a fww in his home . He has had 3 falls at home since he began PT. This has set him back with what he could tolerate for exercises. His partner agrees and has been trying to have him use his walker. HEP was reviewed today and Nahun will be discharged to a [facility] Physical Therapy Plan Discharge Physical Therapy Discharge Reasons No Longer Attending PT Discharge Comments Pt has reached the end of his plan of care and will be discharged to a [facility]
== END 2020-02-17 15:24 ==
LOC: PHYS 14:30
PROVIDERS: PCP Internal Medicine; Referring Provider Internal Medicine Hematology & Oncology; Visit Provider Internal Medicine Hematology & Oncology
DX: C61 Malignant neoplasm of prostate (principal); C34.90 Malignant neoplasm of unspecified part of unspecified bronchus or lung
CPT/HCPCS: 97010; 97110; 97112; 97116; 97140; 97161; 97530; 97535

== ENCOUNTER → 2020-04-06 07:59 | Outpatient (CLI) | payer MEDICARE, OTHER, SELFPAY ==
--- NOTE | 2020-04-06 08:01 | DI.NM.S_ITS ---
PROCEDURE: IN BONE SCAN WHOLE BODY RADIOPHARMACEUTICAL: 21.8 mCi Tc-99m MDP IV. INDICATIONS: small cell cancer, prostate cancer TECHNIQUE: Delayed whole-body scintigrams were obtained approximately 3-4 hours after intravenous injection of radiotracer. Anterior and posterior views were acquired from vertex to feet. COMPARISON: [place], [place] BONE SCAN WHOLE BODY, 06/13/2019, 13:07. [place], [place] BONE SCAN WHOLE BODY, 08/23/2018, 12:59. FINDINGS: There has been no definite further interval reduction in the degree of abnormal isotope uptake at the lateral right scapula, when compared to prior bone scan imaging 06/13/19. This area had significantly improved from the earlier nuclear medicine bone scan 08/23/18. Additionally, a similar pattern of early improvement and then stability at the greater trochanteric margin of the left hip where a small focus of isotope uptake previously easily visualized in August of 2018 is now no longer seen. The axial and appendicular skeleton structures have not developed new metastatic disease, and degenerative changes again noted at each acromioclavicular joint and the medial midfoot, as was previously the case. IMPRESSION: Stable appearance of mild residual elevated uptake at the right lateral scapula in an area of prior documented osseous metastatic disease. Persistent resolution of a focus of abnormal uptake at the greater trochanter of the left hip. No new lesion found. Dictated by: Boris Flowers M.D. on 04/06/2020 at 15:51 Approved by: Boris Flowers M.D. on 04/06/2020 at 16:03
--- NOTE | 2020-04-06 09:48 | DI.CT.S_ITS ---
PROCEDURE: CT CHEST ABD PEL W CON INDICATIONS: small cell cancer, prostate cancer TECHNIQUE: After the administration of oral and intravenous contrast, 5 mm thick sections acquired from the lung apices to the symphysis. 5 mm coronal and sagittal reformats were performed, with additional 7 mm coronal MIP reformats through the lungs. For radiation dose reduction, the following was used: automated exposure control, adjustment of mA and/or kV according to patient size. COMPARISON: [place], [place], [place] BONE SCAN WHOLE BODY, 06/13/2019, 13:07. [place] BONE SCAN WHOLE BODY, 04/06/2020, 11:38. [facility], CT, CT ABDOMEN PELVIS WO CON, 06/30/2019, 3:51. [facility], CT, CT CHEST ABD PEL W CON, 06/13/2019, 10:59. [facility], CT, CT CHEST ABD PEL W CON, 01/17/2019, 10:35. FINDINGS: Image quality: Excellent. CHEST: Lungs and pleura: No acute airspace opacities. There has been a pattern of scattered lung base mild alveolar infiltration, patchy, and this persists. The appearance is not diagnostic of lymphangitic spread of tumor within the lung parenchyma. No pleural effusions or pneumothorax. Central and peripheral airways appear patent and normal in caliber. Mediastinum: Heart size is normal. No pericardial effusion. No mediastinal or hilar adenopathy by size criteria. Thoracic aorta and central pulmonary arteries are normal in size. Esophagus is normal in caliber. No hiatal hernia. Chest wall: No axillary or supraclavicular adenopathy by size criteria. Thyroid gland appears normal where well visualized. Note is again made of sclerosis within the lateral right scapula, in this patient who has prior PET-CT scanning documenting evidence of metastatic disease in that area this does not appear to have further enlarged or developed osteolytic change within.. ABDOMEN: Solid organs: Liver is normal in size and enhancement. Gallbladder has been resected. Biliary system is non dilated. Pancreas enhances normally. Spleen is normal in size and enhancement. No adrenal nodules. Kidneys demonstrate normal size and enhancement, without hydronephrosis. Peritoneum and bowel: Bowel loops demonstrate normal wall thickness and caliber. No free fluid or air. Has developed. Nodes and vessels: No retroperitoneal or mesenteric adenopathy by size criteria. Aorta and inferior vena cava are normal in size. Miscellaneous: No ventral hernias. PELVIS: Genitourinary: Bladder wall thickness is normal. Miscellaneous: No inguinal hernias or adenopathy. There is a small focus of sclerosis within the left hip, greater trochanter inferior border, which also was positive on PET-CT scanning and this has not enlarged in size. No new osteoblastic lesion Bones: No suspicious bony lesions. No vertebral body compression fractures. IMPRESSION: Several small patchy areas of alveolar airspace disease are present, previously the case, potentially alveolar scarring from prior inflammatory events. The absence of change would argue towards benign etiology, and the appearance is not typical of lymphangitic spread of tumor. Previously performed PET-CT scanning has documented evidence of metastatic disease at the lateral right clavicle and the lower left hip greater trochanter margin. These areas of sclerosis have not enlarged in size over time and no new osseous metastatic disease is found. No adenopathy seen. No visceral metastatic disease is identified. Dictated by: Boris Flowers M.D. on 04/06/2020 at 15:35 Approved by: Boris Flwoers M.D. on 04/06/2020 at 15:45
== END ==
PROVIDERS: PCP Internal Medicine; Referring Provider Internal Medicine Hematology & Oncology; Visit Provider Internal Medicine Hematology & Oncology
DX: C61 Malignant neoplasm of prostate; C79.51 Secondary malignant neoplasm of bone; Z85.118 Personal history of other malignant neoplasm of bronchus and lung
CPT/HCPCS: 71260; 74177; 78306; A9503; Q9967

== ENCOUNTER → 2020-04-14 10:38 | Outpatient (CLI) | payer MEDICARE, OTHER, SELFPAY ==
--- NOTE | 2020-04-14 10:40 | DI.US.S_ITS ---
PROCEDURE: US RENAL COMPLETE INDICATIONS: RULE OUT KIDNEY STONES TECHNIQUE: Real-time scanning was performed of the kidneys and bladder, with image documentation. COMPARISON: [facility], US, RENAL COMPLETE, 12/02/2009, 8:49. [facility], CT, CT CHEST W CON, 06/18/2018, 12:14. [facility], CT, CT ABDOMEN PELVIS WO CON, 06/30/2019, 3:51. FINDINGS: Kidneys: Kidneys are normal in size. Right kidney measures 12.7 cm long; left kidney measures 11.5 cm long. Right renal cortical thickness is 1.4 cm; left renal cortical thickness is 1.4 cm. Renal cortical echotexture is normal. No hydronephrosis or nephrolithiasis. No suspicious solid mass lesions. Multiple bilateral simple appearing cysts are seen. The largest solitary cyst is seen at the superior pole of the left kidney that measures up to 2.2 cm. Bladder: Pre-void bladder volume is 82 mL. Post-void residual is 64 mL. Pre-void images demonstrate no intraluminal masses or stones. On pre-void images, both ureteral jets are noted with color Doppler interrogation. (Of note, ureteral jets may not be detectable in up to 25% of cases due to insufficient differences in specific gravity between ureteral and bladder urine). Miscellaneous: No free pelvic fluid. This study is limited by body habitus and bowel gas. IMPRESSION: No kidney stones are seen by ultrasound. No hydronephrosis. Moderate postvoid residual, 64 cc. Dictated by: Tramaine Meng M.D. on 04/14/2020 at 11:36 Approved by: Tramaine Meng M.D. on 04/14/2020 at 11:38
== END ==
PROVIDERS: PCP Internal Medicine; Referring Provider Specialist; Visit Provider Specialist
DX: N28.1 Cyst of kidney, acquired (principal); Z87.442 Personal history of urinary calculi
CPT/HCPCS: 76770

== ENCOUNTER 2020-05-20 12:31 | Emergency (ER) | payer MEDICARE, OTHER, SELFPAY ==
[2020-05-20] VITALS (7 sets, daily range): BP systolic 150–180; BP diastolic 71–81; PULSE 69–76; RESP 16–18; TEMP 36.7; O2SAT 94–96; BMI 34.9
--- NOTE | 2020-05-20 12:37 | DI.RAD.S_ITS ---
PROCEDURE: XR CHEST 1V INDICATIONS: chest pain TECHNIQUE: One view of the chest was acquired. COMPARISON: [facility], CR, XR CHEST 1V, 07/08/2019, 13:58. FINDINGS: Surgical changes and devices: None. Lungs and pleura: Lungs are clear. No pleural effusions or pneumothorax. Mediastinum: Mediastinal contours appear normal. Heart is enlarged. Bones and chest wall: No suspicious bony lesions. Overlying soft tissues appear unremarkable. IMPRESSION: No acute cardiopulmonary disease process. Dictated by: Yenny Burgess MD, PhD on 05/20/2020 at 12:47 Approved by: Yenny Burgess MD, PhD on 05/20/2020 at 12:48
[2020-05-20 12:46] LABS: Prothrombin Time 22.4 SECONDS (10.1-12.7)
[2020-05-20 12:48] LABS: PTT Partial Thromboplastin Tim 44 SECONDS (26.4-36.2)
[2020-05-20 12:49] LABS: Alanine Aminotransferase 12 IU/L (<50); Albumin 3.7 g/dL (3.5-5.0); Alkaline Phosphatase 87 U/L (38-126); Aspartate Aminotransferase 23 IU/L (17-59); BUN Creatinine Ratio 14.4 (6-22); Bilirubin Total 0.8 mg/dL (0.2-1.3); Blood Urea Nitrogen 14 mg/dL (9-20); Calcium 8.8 mg/dL (8.4-10.2); Carbon Dioxide 31 mmol/L (22-32); Chloride 105 mmol/L (98-107); Creatine Kinase 66 U/L (55-170); Estimated Glomerular Filt Rate > 60.0 mL/min (>60); Glucose 232 mg/dL (80-110); Potassium 3.8 mmol/L (3.4-5.1); Sodium 139 mmol/L (137-145); Total Protein 6.4 g/dL (6.3-8.2)
[2020-05-20 12:50] LABS: Albumin Globulin Ratio 1.4 (1.0-2.8); Globulin 2.7 g/dL (1.7-4.1); HEMOLYSIS < 15 (0-50); Lipase 120 U/L (23-300)
[2020-05-20 13:01] LABS: Add Manual Diff / Slide Review NO; Basophils Absolute Auto 0 /uL (0-100); Basophils Percent Auto 0.5 % (0-2); Eosinophils Absolute Auto 300 /uL (0-450); Hematocrit 35.6 % (41-53); Hemoglobin 12.2 g/dL (13.5-17.5); Lymphocytes Absolute Auto 1500 /uL (1100-4500); Lymphocytes Percent Auto 31.1 % (25-40); Mean Corpuscular HGB Conc 34.3 % (30-36); Mean Corpuscular Hemoglobin 32.2 PG (26-34); Mean Corpuscular Volume 93.7 fL (80-100); Monocytes Absolute Auto 500 /uL (0-900); Monocytes Percent Auto 9.5 % (3-14); Neutrophils Absolute Auto 2500 /uL (1500-7000); Neutrophils Percent Auto 52.9 % (50-75); Platelet Count 96 X10^3/uL (150-400); Red Blood Cell Count 3.79 X10^6/uL (4.5-5.9); Red Cell Distribution Width 13.5 % (11.6-14.8); Troponin I < 0.012 ng/mL (0.01-0.034); White Blood Cell Count 4.7 X10^3/uL (4.5-11.0)
[2020-05-20 13:09] LABS: Magnesium 1.8 mg/dL (1.6-2.3)
[2020-05-20 13:19] LABS: NT-proBNP (BNP-Adult 18+) 753 pg/mL (<450)
--- NOTE | 2020-05-20 13:30 | ED_ITS ---
HPI - Chest Pain <Annamaria Hargrove, DELI DEPARTMENT MANAGER-BC - Last Filed: 05/20/20 15:39> General Chief Complaint: Chest Pain Stated Complaint: Chest Pain Time Seen by Provider: 05/20/20 12:44 Source: patient Mode of arrival: EMS Limitations: no limitations History of Present Illness HPI narrative: The patient is an [age] year old male current smoker with history of prostate cancer, coronary artery disease, and lung cancer who presents with a chief complaint of left-sided chest pain. It comes and goes ove r the past day. He states he has about three episodes an hour, rated 2-3/10. States it is stabbing just in his left chest. 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 He denies any shortness of breath, cough, congestion, lightheadedness or dizziness. States that the pain is pinpoint in his left upper chest. Related Data Home Medications Medication Instructions Recorded Confirmed atorvastatin [Lipitor] 40 mg PO BEDTIME #0 03/21/17 04/29/20 Respironics Dreamstation BIPAP #1 ea 08/29/18 04/29/20 furosemide 20 mg PO DAILY PRN 01/22/19 04/29/20 losartan 50 mg PO DAILY 01/22/19 04/29/20 carvedilol 25 mg PO BID 05/08/19 04/29/20 minoxidil 10 mg PO DAILY 05/08/19 04/29/20 tamsulosin [Flomax] 0.4 mg PO BEDTIME 07/19/19 04/29/20 duloxetine 60 mg capsule,delayed 60 mg PO DAILY 04/29/20 04/29/20 release Previous Rx's Medication Instructions Recorded Xarelto 20 mg PO DAILY #90 tab 02/07/18 potassium citrate 10 mEq (1,080 10 meq PO TID #270 tab 04/29/20 mg) tablet,extended release amoxicillin-pot clavulanate 1 tab PO BID #20 tab 05/20/20 [Augmentin] doxycycline hyclate 100 mg PO BID #20 cap 05/20/20 Allergies Allergy/AdvReac Type Severity Reaction Status Date / Time niacin [NIACIN] AdvReac Severe Hypotension Verified 05/20/20 12:38 amlodipine [AMLODIPINE] AdvReac Unknown Verified 05/20/20 12:38 chlorthalidone AdvReac Unknown Elevated Verified 05/20/20 12:38 Creatinine gemfibrozil [GEMFIBROZIL] AdvReac Unknown Verified 05/20/20 12:38 hydrochlorothiazide AdvReac Unknown Verified 05/20/20 12:38 [HYDROCHLOROTHIAZIDE] hydroxychloroquine AdvReac Unknown Diarrhea Verified 05/20/20 12:38 [From Plaquenil] lisinopril [LISINOPRIL] AdvReac Unknown Diarrhea Verified 05/20/20 12:38 Review of Systems <Annamaria Hargrove [facility] - Last Filed: 05/20/20 15:39> Review of Systems Narrative: GENERAL: Denies chills, fatigue, malaise, fever, sweats. HEENT: Denies sinus pain, ear pain, sore throat, difficulty swallowing, dizziness. RESPIRATORY: Denies dyspnea, cough, wheezing, hemoptysis, sputum. CARDIOVASCULAR: See HPI GASTROINTESTINAL: Denies nausea, vomiting, abdominal pain, diarrhea, constipation, melena. : Denies dysuria, frequency, incontinence, hematuria, urinary retention. MUSCULOSKELETAL: denies weakness, joint pain, or bony pain SKIN: Denies rash, skin lesions, or other NEUROLOGIC: Denies weakness, headache, numbness, change in speech, confusion, seizures, incoordination. PSYCHIATRIC: No concerning psychosocial issues. 12 point review of systems is negative except for those stated above Patient History <Annamaria Hargrove [facility]- - Last Filed: 05/20/20 15:39> Medical History Coronary artery disease Depression Diabetes type 2, controlled Erectile dysfunction GERD (gastroesophageal reflux disease) History of nephrolithiasis History of nephrolithiasis History of nephrolithotomy with removal of calculi History of pulmonary embolism Hyperlipidemia Hypertension Kidney stone Leukopenia Lung cancer Metastatic malignant neoplasm to prostate Neuropathy Obstructive sleep apnea of adult Prostate cancer Prostate cancer Prostate cancer Prostate cancer metastatic to bone Renal insufficiency Rheumatoid arthritis RLS (restless legs syndrome) Small cell lung cancer Thrombocytopenia Thrombophlebitis of arm, left Urge incontinence Urge incontinence Urge incontinence Urinary calculi UTI (urinary tract infection) Surgical History H/O coronary angioplasty H/O umbilical hernia repair History of appendectomy History of cholecystectomy Hx of hernia repair Hx of lithotripsy Family History Father No problems noted. Mother No problems noted. Brother Hx of CABG Diabetes mellitus Coronary artery disease Social History marital status: unmarried,living together details: partner Vanessa Alonso, lives in [place] household members: significant other lives independently: No caregiver/support person: Yes Smoking Status: Current every day smoker alcohol intake: never Smoking Status: Current every day smoker alcohol intake frequency: holidays/special occasions only Substance Use Type: does not use Exam <ANGIE PappasBC - Last Filed: 05/20/20 15:39> Narrative Exam Narrative: GENERAL: This is a well-nourished, well-developed patient, in no acute distress HEAD: Atraumatic. Normocephalic. No temporal or scalp tenderness. EYES: Pupils equal round and reactive. Extraocular motions intact. No scleral icterus. No injection or drainage. ENT: Nose without bleeding, purulent drainage or septal hematoma. Wearing a mask. Airway patent. NECK: Trachea midline. No JVD or lymphadenopathy. Supple, nontender, no meningeal signs. CARDIOVASCULAR: Regular rate and rhythm RESPIRATORY: Clear to auscultation. Breath sounds equal bilaterally. No wheezes, rales, or rhonchi. No cough. No increased respiratory effort. No accessory muscle use GASTROINTESTINAL: Abdomen soft, non-tender, nondistended. No hepato-s plenomegaly, or palpable masses. No guarding. EXTREMITIES: No clubbing, cyanosis, or edema. No joint tenderness, effusion, or edema noted. BACK: Nontender without deformity or crepitance. No flank tenderness. NEURO: AOx3. SKIN: No rash or erythema visible skin Initial Vital Signs Initial Vital Signs: Vital Signs Temperature 98.1 F 05/20/20 12:36 Pulse Rate 74 05/20/20 12:36 Respiratory Rate 16 05/20/20 12:36 Blood Pressure 180/81 H 05/20/20 12:36 Pulse Oximetry 95 05/20/20 12:36 <Annamaria Jeter DO - Last Filed: 05/21/20 19:13> Initial Vital Signs Initial Vital Signs: Vital Signs Temperature 98.1 F 05/20/20 12:36 Pulse Rate 74 05/20/20 12:36 Respiratory Rate 16 05/20/20 12:36 Blood Pressure 180/81 H 05/20/20 12:36 Pulse Oximetry 95 05/20/20 12:36 Scores <JULIO Pappas - Last Filed: 05/20/20 15:39> CURB-65 Confusion: No BUN >19mg/dL (>7mmol/L): No Respiratory rate greater or equal to 30: No SBP <90mmHg or DBP less or equal to 60mmHg: No Age 65 or Older: Yes CURB-65 Total: 1 Score 0-1 Outpatient care, Score 2 Inpt vs. Obs, Score 3 or over Inpt admit with ICU for score of 4-5 GCS Stacey coma scale eye opening: Spontaneous Stacey coma scale verbal response: Orientated Stacey coma scale motor response: Obey commands Stacey coma scale total score: 15 Course <JULIO Pappas - Last Filed: 05/20/20 15:39> Orders Ordered: Discontinued Medications Amoxicillin/Clavulanate Potassium (Amoxicillin/Clav 875/125 Mg) 1 tab PO NOW ONE Stop: 05/20/20 15:16 Last Admin: 05/20/20 15:19 Dose: 1 tab Documented by: CHANCE Doxycycline Hyclate (Doxycycline Hyclate 100 Mg Tablet) 100 mg PO NOW ONE Stop: 05/20/20 15:16 Last Admin: 05/20/20 15:19 Dose: 100 mg Documented by: MAXIMILIANO Vital Signs Vital signs: Vital Signs - 8 hr 05/20/20 12:36 05/20/20 13:18 05/20/20 13:30 Temperature 98.1 F Pulse Rate 74 71 69 Respiratory Rate 16 16 16 Blood Pressure 180/81 H Pulse Oximetry 95 96 96 05/20/20 13:47 05/20/20 14:00 05/20/20 14:30 Temperature Pulse Rate 76 73 69 Respiratory Rate 18 16 16 Blood Pressure 166/76 H 150/72 H 153/71 H Pulse Oximetry 94 94 95 05/20/20 15:00 Temperature Pulse Rate 69 Respiratory Rate Blood Pressure Pulse Oximetry 95 <Annamaria Jeter DO - Last Filed: 05/21/20 19:13> Orders Ordered: Discontinued Medications Amoxicillin/Clavulanate Potassium (Amoxicillin/Clav 875/125 Mg) 1 tab PO NOW ONE Stop: 05/20/20 15:16 Last Admin: 05/20/20 15:19 Dose: 1 tab Documented by: CHANCE Doxycycline Hyclate (Doxycycline Hyclate 100 Mg Tablet) 100 mg PO NOW ONE Stop: 05/20/20 15:16 Last Admin: 05/20/20 15:19 Dose: 100 mg Documented by: CHANCE Vital Signs Vital signs: Vital Signs - 8 hr 05/20/20 12:36 05/20/20 13:18 05/20/20 13:30 Temperature 98.1 F Pulse Rate 74 71 69 Respiratory Rate 16 16 16 Blood Pressure 180/81 H Pulse Oximetry 95 96 96 05/20/20 13:47 05/20/20 14:00 05/20/20 14:30 Temperature Pulse Rate 76 73 69 Respiratory Rate 18 16 16 Blood Pressure 166/76 H 150/72 H 153/71 H Pulse Oximetry 94 94 95 05/20/20 15:00 Temperature Pulse Rate 69 Respiratory Rate Blood Pressure Pulse Oximetry 95 MDM - Chest Pain <MIHIR Pappas- - Last Filed: 05/20/20 15:39> Lab Data Result diagrams: 05/20/20 12:38 05/20/20 12:38 Labs: Lab Results 05/20/20 05/20/20 05/20/20 Range/Units 12:38 12:38 12:38 WBC 4.7 (4.5-11.0) X10^3/uL RBC 3.79 L (4.5-5.9) X10^6/uL Hgb 12.2 L (13.5-17.5) g/dL Hct 35.6 L (41-53) % MCV 93.7 (80-100) fL MCH 32.2 (26-34) PG MCHC 34.3 (30-36) % RDW 13.5 (11.6-14.8) % Plt Count 96 L (150-400) X10^3/uL Neut % (Auto) 52.9 (50-75) % Lymph % (Auto) 31.1 (25-40) % Barber % (Auto) 9.5 (3-14) % Eos % (Auto) 6.0 H (2-4) % Baso % (Auto) 0.5 (0-2) % Neut # (Auto) 2500 (5863-8886) /uL Lymph # (Auto) 1500 (7182-3384) /uL Barber # (Auto) 500 (0-900) /uL Eos # (Auto) 300 (0-450) /uL Baso # (Auto) 0 (0-100) /uL PT 22.4 H (10.1-12.7) SECONDS INR 2.0 H (0.9-1.3) APTT 44 H (26.4-36.2) SECONDS Sodium 139 (137-145) mmol/L Potassium 3.8 (3.4-5.1) mmol/L Chloride 105 (98-107) mmol/L Carbon Dioxide 31 (22-32) mmol/L BUN 14 (9-20) mg/dL Creatinine 0.97 (0.66-1.25) mg/dL Estimated GFR > 60.0 (>60) mL/min BUN/Creatinine Ratio 14.4 (6-22) Glucose 232 H (80-110) mg/dL Calcium 8.8 (8.4-10.2) mg/dL Magnesium (1.6-2.3) mg/dL Total Bilirubin 0.8 (0.2-1.3) mg/dL AST 23 (17-59) IU/L ALT 12 (<50) IU/L Alkaline Phosphatase 87 (38-126) U/L Total Creatine Kinase 66 (55-170) U/L CK-MB (CK-2) TNP CK-MB (CK-2) Rel Index TNP Troponin I < 0.012 (0.01-0.034) ng/mL NT-Pro-B Natriuret Pep (<450) pg/mL Total Protein 6.4 (6.3-8.2) g/dL Albumin 3.7 (3.5-5.0) g/dL Globulin 2.7 (1.7-4.1) g/dL Albumin/Globulin Ratio 1.4 (1.0-2.8) Lipase 120 (23-300) U/L SARS-CoV-2 (PCR) (Negative) 02/10/21 02/10/21 02/10/21 Range/Units 13:00 13:45 14:30 WBC (4.5-11.0) X10^3/uL RBC (4.5-5.9) X10^6/uL Hgb (13.5-17.5) g/dL Hct (41-53) % MCV (80-100) fL MCH (26-34) PG MCHC (30-36) % RDW (11.6-14.8) % Plt Count (150-400) X10^3/uL Neut % (Auto) (50-75) % Lymph % (Auto) (25-40) % Barber % (Auto) (3-14) % Eos % (Auto) (2-4) % Baso % (Auto) (0-2) % Neut # (Auto) (8646-5997) /uL Lymph # (Auto) (4414-5982) /uL Barber # (Auto) (0-900) /uL Eos # (Auto) (0-450) /uL Baso # (Auto) (0-100) /uL PT (10.1-12.7) SECONDS INR (0.9-1.3) APTT (26.4-36.2) SECONDS Sodium (137-145) mmol/L Potassium (3.4-5.1) mmol/L Chloride (98-107) mmol/L Carbon Dioxide (22-32) mmol/L BUN (9-20) mg/dL Creatinine (0.66-1.25) mg/dL Estimated GFR (>60) mL/min BUN/Creatinine Ratio (6-22) Glucose (80-110) mg/dL Calcium (8.4-10.2) mg/dL Magnesium 1.8 (1.6-2.3) mg/dL Total Bilirubin (0.2-1.3) mg/dL AST (17-59) IU/L ALT (<50) IU/L Alkaline Phosphatase (38-126) U/L Total Creatine Kinase 61 (55-170) U/L CK-MB (CK-2) TNP CK-MB (CK-2) Rel Index TNP Troponin I < 0.012 (0.01-0.034) ng/mL NT-Pro-B Natriuret Pep 753 H (<450) pg/mL Total Protein (6.3-8.2) g/dL Albumin (3.5-5.0) g/dL Globulin (1.7-4.1) g/dL Albumin/Globulin Ratio (1.0-2.8) Lipase (23-300) U/L SARS-CoV-2 (PCR) Negative (Negative) Imaging Data CT scan - chest: Radiologist's Impression: [address] [place] [address] [id number] Scan ReportSigned Patient: Nahun Cintron EMR#: [id number]: 1940Acct:[id number]/Sex: 80 / MDate of Service: 05/20/20Loc: EDAccession Number: [id number] Procedure: CT angio chest PE protocol Ordering Provider: Annamaria Hargrove- PROCEDURE: CT ANGIO CHEST PE PROTOCOL INDICATIONS: hx pe, chest pain TECHNIQUE: After the administration of intravenous contrast, 2 mm thick sections acquired from the pulmonary apices to the posterior costophrenic angles. 3-dimensional maximum intensity projection (MIP) coronal and sagittal reformats were then acquired through the thorax. For radiation dose reduction, the following was used: automated exposure control, adjustment of mA and/or kV according to patient size. COMPARISON: [facility], CT, CT ANGIO CHEST PE PROTOCOL, 09/29/2017, 22:53. FINDINGS: Image quality: Excellent. Pulmonary arteries: Pulmonary arteries are normal in size, and demonstrate no intraluminal filling defects to suggest central pulmonary embolism. Lungs and pleura: Small consolidative opacity at the left upper lobe inferiorly. Left apex nodular opacity measuring 0.7 cm, (5/53). No pleural effusions or pneumothorax. Central and peripheral airways are patent. Mediastinum: Heart size is prominent, small volume of pericardial fluid. Three-vessel coronary artery calcifications. Left upper paratracheal lymph node measuring 1 cm, (08/04), unchanged compared to 2018. Right lower paratracheal lymph node measuring 1.3 cm short axis diameter, (457), previously 1.2 cm. Thoracic aorta is normal in caliber and enhancement. Left common carotid artery originates off the brachiocephalic artery, variant anatomy. Moderate calcified atherosclerotic plaque in the aortic arch. Esophagus is normal in caliber, small hiatal hernia. Bones and chest wall: No suspicious bony lesions. Ribs and thoracic spine appear intact throughout. Thyroid gland is unremarkable. No axillary or supraclavicular adenopathy. Abdomen: Visualized upper abdominal solid organs appear normal in the early arterial phase of enhancement. IMPRESSION: 1. No pulmonary embolism. 2. Small consolidative opacity in the left upper lobe inferiorly. This could represent pneumonia. 3. Cardiomegaly. Small pericardial effusion. 4. Enlarged mediastinal lymph nodes are unchanged since 2018. Dictated by: Curt Conte M.D. on 05/20/2020 at 13:54 Approved by: Curt Conte M.D. on 05/20/2020 at 14:08 Chest x-ray: Radiologist's Impression: [address] [place] [address] [id number] ReportSigned Patient: Nahun Cintron EMR#: [id number]: 1940Acct:[id number]/Sex: 80 / MDate of Service: 05/20/20Loc: EDAccession Number: [id number] Procedure: XR chest 1V Ordering Provider: Annamaria Jeter D.O. PROCEDURE: XR CHEST 1V INDICATIONS: chest pain TECHNIQUE: One view of the chest was acquired. COMPARISON: [facility], , XR CHEST 1V, 07/08/2019, 13:58. FINDINGS: Surgical changes and devices: None. Lungs and pleura: Lungs are clear. No pleural effusions or pneumothorax. Mediastinum: Mediastinal contours appear normal. Heart is enlarged. Bones and chest wall: No suspicious bony lesions. Overlying soft tissues appear unremarkable. IMPRESSION: No acute cardiopulmonary disease process. Dictated by: Yenny Burgess MD, PhD on 05/20/2020 at 12:47 Approved by: Yenny Burgess MD, PhD on 05/20/2020 at 12:48 ECG Data Attestation: I personally reviewed and interpreted this ECG as follows: Interpretation: Normal sinus rhythm. Ventricular rate 74. P.r. interval 150. QRS 96. Viewed by Dr Steffany CONNOLLY Narrative Medical decision making narrative: The patient is an 80-year-old male who presents with a chief complaint of pain in his left upper chest. He states it has come and gone since last night. His initial troponin is negative, repeat 2 hour troponin is also negative. EKG has no acute findings. Given his history of pulmonary embolism, CT was taken to rule out pulmonary embolism. However this did show concerning for pneumonia, which is where the patient is having his pain. Given that he is a higher risk patient due to age and comorbidities, curb score calculated to Evaluate need for inpatient treatment. His curb score is one, allowing outpatient treatment. He was started on Augmentin and doxycycline as per up-to-date recommendations for a high-risk patient on outpatient treatment. Discussed plan with Dr Jeter. The patient was able to tolerate 1st doses of Augmentin and doxycycline in the emergency department. He is able to ambulate at baseline and attempted to dance with nursing staff. I did discuss at length the importance of following up with primary care provider in the next few days as well as coming back to the ER for any acute concerns. I did discuss at length with the patient that they may need follow-up imaging to make sure that there is no mass etcetera once the pneumonia has resolved. Patient and significant other state understanding return precautions as well as follow-up care. The patient has been hemodynamically stable well appearing throughout his stay in the ER. <Annamaria Jeter, DO - Last Filed: 05/21/20 19:13> Lab Data Labs: Lab Results 05/20/20 05/20/20 05/20/20 Range/Units 12:38 12:38 12:38 WBC 4.7 (4.5-11.0) X10^3/uL RBC 3.79 L (4.5-5.9) X10^6/uL Hgb 12.2 L (13.5-17.5) g/dL Hct 35.6 L (41-53) % MCV 93.7 (80-100) fL MCH 32.2 (26-34) PG MCHC 34.3 (30-36) % RDW 13.5 (11.6-14.8) % Plt Count 96 L (150-400) X10^3/uL Neut % (Auto) 52.9 (50-75) % Lymph % (Auto) 31.1 (25-40) % Barber % (Auto) 9.5 (3-14) % Eos % (Auto) 6.0 H (2-4) % Baso % (Auto) 0.5 (0-2) % Neut # (Auto) 2500 (8253-3015) /uL Lymph # (Auto) 1500 (3513-9933) /uL Barber # (Auto) 500 (0-900) /uL Eos # (Auto) 300 (0-450) /uL Baso # (Auto) 0 (0-100) /uL PT 22.4 H (10.1-12.7) SECONDS INR 2.0 H (0.9-1.3) APTT 44 H (26.4-36.2) SECONDS Sodium 139 (137-145) mmol/L Potassium 3.8 (3.4-5.1) mmol/L Chloride 105 (98-107) mmol/L Carbon Dioxide 31 (22-32) mmol/L BUN 14 (9-20) mg/dL Creatinine 0.97 (0.66-1.25) mg/dL Estimated GFR > 60.0 (>60) mL/min BUN/Creatinine Ratio 14.4 (6-22) Glucose 232 H (80-110) mg/dL Calcium 8.8 (8.4-10.2) mg/dL Magnesium (1.6-2.3) mg/dL Total Bilirubin 0.8 (0.2-1.3) mg/dL AST 23 (17-59) IU/L ALT 12 (<50) IU/L Alkaline Phosphatase 87 (38-126) U/L Total Creatine Kinase 66 (55-170) U/L CK-MB (CK-2) TNP CK-MB (CK-2) Rel Index TNP Troponin I < 0.012 (0.01-0.034) ng/mL NT-Pro-B Natriuret Pep (<450) pg/mL Total Protein 6.4 (6.3-8.2) g/dL Albumin 3.7 (3.5-5.0) g/dL Globulin 2.7 (1.7-4.1) g/dL Albumin/Globulin Ratio 1.4 (1.0-2.8) Lipase 120 (23-300) U/L SARS-CoV-2 (PCR) (Negative) 05/20/20 05/20/20 05/20/20 Range/Units 13:00 13:45 14:30 WBC (4.5-11.0) X10^3/uL RBC (4.5-5.9) X10^6/uL Hgb (13.5-17.5) g/dL Hct (41-53) % MCV (80-100) fL MCH (26-34) PG MCHC (30-36) % RDW (11.6-14.8) % Plt Count (150-400) X10^3/uL Neut % (Auto) (50-75) % Lymph % (Auto) (25-40) % Barber % (Auto) (3-14) % Eos % (Auto) (2-4) % Baso % (Auto) (0-2) % Neut # (Auto) (8928-7564) /uL Lymph # (Auto) (1938-6868) /uL Barber # (Auto) (0-900) /uL Eos # (Auto) (0-450) /uL Baso # (Auto) (0-100) /uL PT (10.1-12.7) SECONDS INR (0.9-1.3) APTT (26.4-36.2) SECONDS Sodium (137-145) mmol/L Potassium (3.4-5.1) mmol/L Chloride (98-107) mmol/L Carbon Dioxide (22-32) mmol/L BUN (9-20) mg/dL Creatinine (0.66-1.25) mg/dL Estimated GFR (>60) mL/min BUN/Creatinine Ratio (6-22) Glucose (80-110) mg/dL Calcium (8.4-10.2) mg/dL Magnesium 1.8 (1.6-2.3) mg/dL Total Bilirubin (0.2-1.3) mg/dL AST (17-59) IU/L ALT (<50) IU/L Alkaline Phosphatase (38-126) U/L Total Creatine Kinase 61 (55-170) U/L CK-MB (CK-2) TNP CK-MB (CK-2) Rel Index TNP Troponin I < 0.012 (0.01-0.034) ng/mL NT-Pro-B Natriuret Pep 753 H (<450) pg/mL Total Protein (6.3-8.2) g/dL Albumin (3.5-5.0) g/dL Globulin (1.7-4.1) g/dL Albumin/Globulin Ratio (1.0-2.8) Lipase (23-300) U/L SARS-CoV-2 (PCR) Negative (Negative) Discharge Plan Departure Patient Disposition: Home Clinical Impression: Pneumonia Qualifiers: Pneumonia type: due to unspecified organism Laterality: left Lung location: upper lobe of lung Qualified Code(s): J18.9 - Pneumonia, unspecified organism Instructions: DI for Pneumonia -- Adult, DI for Chest Pain, DI for Atypical Pneumonia Activity Restrictions/Additional Instructions: Thank you for trusting us with your care today As discussed, your exam and imaging resulted in finding pneumonia and the top of your left lung, where you are having pain. I sent prescriptions of 2 different antibiotics to [facility]. Please take these with probiotic or yogurt to help prevent antibiotic related side effects such as diarrhea Please follow-up with primary care provider in the next few days. Please come back to the emergency department for any acute concerns such as concerning shortness of breath, chest pain, concern of heart attack or stroke etcetera Prescriptions: New amoxicillin-pot clavulanate [Augmentin] 875-125 mg tablet 1 tab PO BID Qty: 20 RF: 0 doxycycline hyclate 100 mg capsule 100 mg PO BID Qty: 20 RF: 0 No Action atorvastatin [Lipitor] 40 MG tablet 40 mg PO BEDTIME Qty: 0 RF: 0 Xarelto 20 mg Tablet 20 mg PO DAILY Qty: 90 RF: 0 losartan 50 mg Tablet 50 mg PO DAILY RF: 0 furosemide 20 mg Tablet 20 mg PO DAILY PRN (Reason: Edema) RF: 0 carvedilol 25 mg Tablet 25 mg PO BID RF: 0 minoxidil 10 mg Tablet 10 mg PO DAILY RF: 0 tamsulosin [Flomax] 0.4 mg capsule 0.4 mg PO BEDTIME RF: 0 (DME) Respironics Dreamstation BIPAP Qty: 1 RF: 0 duloxetine 60 mg capsule,delayed release(DR/EC) 60 mg PO DAILY RF: 0 potassium citrate 10 mEq (1,080 mg) tablet extended release 10 meq PO TID Qty: 270 RF: 3 Referrals: Gurdeep Cameron MD [Primary Care Provider] - <Annamaria Jeter DO - Last Filed: 05/21/20 19:13> Cosign ED Attending Yobanyature Attestation: I was immediately available in the department for consultation. Documentation has been reviewed. Case was discussed myself, labs, vitals and imaging reviewed. Agree with plan
[2020-05-20 14:11] LABS: COVID19 -Nasal RAPID Negative (Negative)
[2020-05-20 14:51] LABS: Creatine Kinase 61 U/L (55-170)
[2020-05-20 15:04] LABS: Troponin I < 0.012 ng/mL (0.01-0.034)
[2020-05-20] MEDS: AMOXICILLIN/CLAV 875/125 MG 1 TAB PO (15:19)
[2020-05-20] MEDS: DOXYCYCLINE HYCLATE 100 MG TABLET PO (15:19)
== END 2020-05-20 15:37 | disposition home or self-care (01) ==
PROVIDERS: Emergency Medicine; Emergency Provider Nurse Practitioner Family; PCP Internal Medicine
DX: J18.9 Pneumonia, unspecified organism (principal); R07.9 Chest pain, unspecified; I25.10 Atherosclerotic heart disease of native coronary artery without angina pectoris; Z85.46 Personal history of malignant neoplasm of prostate; Z85.118 Personal history of other malignant neoplasm of bronchus and lung; E11.9 Type 2 diabetes mellitus without complications; I10 Essential (primary) hypertension; Z86.711 Personal history of pulmonary embolism; E78.5 Hyperlipidemia, unspecified; Z20.822 Contact with and (suspected) exposure to COVID-19
CPT/HCPCS: 36415; 71045; 71275; 80053; 82550; 83690; 83735; 83880; 84484; 85025; 85610; 85730; 87635; 93005; 93010; 99282; 99284; C9803; Q9967

== ENCOUNTER → 2020-06-30 16:32 | Outpatient (CLI) | payer MEDICARE, OTHER, SELFPAY ==
[2020-06-30] MEDS: COVID-19 VACC #1, MRNA(MOD) 100 MCG/0.5 ML VIAL IM (16:45)
== END ==
PROVIDERS: PCP Internal Medicine; Visit Provider Internal Medicine
DX: Z23 Encounter for immunization (principal)
CPT/HCPCS: 0011A; 91301

== ENCOUNTER → 2020-07-29 11:07 | Outpatient (CLI) | payer MEDICARE, SELFPAY ==
[2020-07-29] MEDS: COVID-19 VACC #2, MRNA(MOD) 100 MCG/0.5 ML VIAL IM (11:14)
== END ==
PROVIDERS: PCP Internal Medicine; Visit Provider Internal Medicine
DX: Z23 Encounter for immunization (principal)
CPT/HCPCS: 0012A; 91301

== ENCOUNTER 2020-09-07 13:28 | Emergency (ER) | payer MEDICARE, OTHER, SELFPAY ==
[2020-09-07] VITALS (9 sets, daily range): BP systolic 71–140; BP diastolic 43–67; PULSE 56–61; RESP 15–19; TEMP 36.8; O2SAT 93–98; BMI 33.9
--- NOTE | 2020-09-07 13:48 | DI.RAD.S_ITS ---
PROCEDURE: XR CHEST 1V INDICATIONS: chest pain TECHNIQUE: One view of the chest was acquired. COMPARISON: [facility], CT, CT ANGIO CHEST PE PROTOCOL, 05/20/2020, 13:33. [facility], CR, XR CHEST 1V, 07/08/2019, 13:58. [facility], CT, CT CHEST ABD PEL W CON, 04/06/2020, 9:11. [facility], CR, XR CHEST 1V, 05/20/2020, 12:41. FINDINGS: Surgical changes and devices: None. Lungs and pleura: An incomplete inspiratory result is noted, causing a crowded appearance to the lung markings. No focal infiltrates are seen. No pneumothorax or significant pleural effusions are seen. Mediastinum: The cardiac contours are mildly enlarged. The aorta demonstrates calcification and tortuosity. Bones and chest wall: No suspicious bony lesions. Age-appropriate bony degenerative changes are seen. Overlying soft tissues appear unremarkable. IMPRESSION: Stable portable chest, with mild cardiomegaly. Dictated by: Tramaine Meng M.D. on 09/07/2020 at 13:24 Approved by: Tramaine Meng M.D. on 09/07/2020 at 13:25
[2020-09-07 13:59] LABS: Add Manual Diff / Slide Review NO; Basophils Absolute Auto 0 /uL (0-100); Basophils Percent Auto 0.6 % (0-2); Eosinophils Absolute Auto 200 /uL (0-450); Eosinophils Percent Auto 3.5 % (2-4); Hematocrit 32.2 % (41-53); Hemoglobin 11.3 g/dL (13.5-17.5); Lymphocytes Absolute Auto 1600 /uL (1100-4500); Lymphocytes Percent Auto 31.6 % (25-40); Mean Corpuscular HGB Conc 35.2 % (30-36); Mean Corpuscular Volume 93.9 fL (80-100); Monocytes Absolute Auto 400 /uL (0-900); Monocytes Percent Auto 8.3 % (3-14); Neutrophils Absolute Auto 2800 /uL (1500-7000); Platelet Count 90 X10^3/uL (150-400); Red Blood Cell Count 3.43 X10^6/uL (4.5-5.9); Red Cell Distribution Width 12.9 % (11.6-14.8)
[2020-09-07 14:04] LABS: HEMOLYSIS < 15 (0-50); INR 1.8 (0.9-1.3); Prothrombin Time 20.6 SECONDS (10.1-12.7)
[2020-09-07 14:07] LABS: PTT Partial Thromboplastin Tim 45 SECONDS (26.4-36.2)
[2020-09-07 14:09] LABS: Alanine Aminotransferase 11 IU/L (<50); Albumin 3.7 g/dL (3.5-5.0); Albumin Globulin Ratio 1.4 (1.0-2.8); Alkaline Phosphatase 71 U/L (38-126); Aspartate Aminotransferase 22 IU/L (17-59); BUN Creatinine Ratio 14.7 (6-22); Bilirubin Total 0.7 mg/dL (0.2-1.3); Blood Urea Nitrogen 19 mg/dL (9-20); Calcium 9.3 mg/dL (8.4-10.2); Carbon Dioxide 27 mmol/L (22-32); Chloride 107 mmol/L (98-107); Creatine Kinase 57 U/L (55-170); Estimated Glomerular Filt Rate 53.6 mL/min (>60); Globulin 2.7 g/dL (1.7-4.1); Glucose 120 mg/dL (80-110); Lipase 117 U/L (23-300); Potassium 4.2 mmol/L (3.4-5.1); Sodium 138 mmol/L (137-145); Total Protein 6.4 g/dL (6.3-8.2)
[2020-09-07 14:22] LABS: Troponin I < 0.012 ng/mL (0.01-0.034)
--- NOTE | 2020-09-07 14:37 | DI.US.S_ITS ---
PROCEDURE: US PERIPH VENOUS LOW EXTREM LT INDICATIONS: sudden onset left calf pain hx DVT TECHNIQUE: Real-time imaging, as well as color and pulse Doppler interrogation, were performed of the lower extremity deep veins from the inguinal ligament to the popliteal fossa. COMPARISON: [facility], CT, CT ANGIO CHEST PE PROTOCOL, 05/20/2020, 13:33. [facility], CR, XR CHEST 1V, 09/07/2020, 14:09. [facility], US, US PERIP VENOUS LOW EXTREM LT, 09/24/2017, 15:44. FINDINGS: The common femoral, femoral and popliteal veins are normally compressible, and free of intraluminal thrombus. Color and pulse Doppler demonstrate normal phasic intraluminal flow. There is normal augmentation response to distal compression maneuver. IMPRESSION: Negative for deep venous thrombosis. Dictated by: Tramaine Meng M.D. on 09/07/2020 at 14:40 Approved by: Tramaine Meng M.D. on 09/07/2020 at 14:40
--- NOTE | 2020-09-07 15:15 | PC.NURSE ---
New onset of right groin pain developed while here in ER. Intermittent in nature, sharp and stabbing when present. Left calf pain resolved at this time
--- NOTE | 2020-09-07 15:47 | DI.RAD.S_ITS ---
PROCEDURE: XR HIP W PEL IF DONE RT 2V INDICATIONS: right groin pain, hx of bone ca TECHNIQUE: AP pelvis with lateral view(s) of the right hip(s). COMPARISON: [facility], , US PERIPH VENOUS LOW EXTREM LT, 09/07/2020, 15:07. [facility], CR, XR CHEST 1V, 09/07/2020, 14:09. [facility], NM, NM BONE SCAN WHOLE BODY, 04/06/2020, 11:38. [facility], CT, CT CHEST ABD PEL W CON, 04/06/2020, 9:11. FINDINGS: Bones: No fractures or dislocations. Pelvic ring appears intact. Age-appropriate lower lumbar spine degenerative changes are noted. A presumed bone island is seen within left proximal femur, as before. There is moderate superior joint space narrowing seen of hips, with associated remodeling changes with subchondral sclerosis and osteophyte formation. Soft tissues: The visualized bowel gas pattern is normal. No suspicious soft tissue calcifications. Atherosclerotic calcification is noted. IMPRESSION: No fractures or patrick neoplasm can be seen by plain. Please consider follow-up CT or nuclear medicine bone scan for further evaluation, if clinically appropriate. Dictated by: Tramaine Meng M.D. on 09/07/2020 at 15:14 Approved by: Tramaine Meng M.D. on 09/07/2020 at 15:16
[2020-09-07] MEDS: MORPHINE 2 MG/ML INJ IV (16:05)
[2020-09-07] MEDS: SODIUM CHLORIDE 0.9% 500 ML 1000 ML IV (16:06)
--- NOTE | 2020-09-07 16:47 | ED_ITS ---
HPI - Extremity Problem <SID Vanegas - Last Filed: 09/07/20 23:47> General Chief complaint: Extremity Problem,Nontraumatic Stated complaint: Knot in the Left Leg, HX DVT and PE Time Seen by Provider: 09/07/20 15:21 Source: patient Mode of arrival: Wheelchair Limitations: no limitations History of Present Illness HPI Narrative: This is a 80-year-old gentleman, smoker, who has past medical history significant for DVT and pulmonary embolism who currently takes Xarelto presents to ED with his partner with chief complain of left calf pain for 1 day. Patient also has history of prostate cancer, lung cancer, possible bone cancers. Patient denies chest pain, dyspnea, calf swelling but reports a knot. Patient denies nausea, vomiting, fever, chills, or abdominal pain. Patient reports good appetite. While patient was in ED he developed new intermittent severe pain in right groin causing him to scream. Patient denies bulging in right groin. Patient denies recent trauma or falls. He uses a cane, walker for ambulation. Related Data Home Medications Medication Instructions Recorded Confirmed atorvastatin [Lipitor] 40 mg PO BEDTIME #0 03/21/17 09/14/20 Respironics Dreamstation BIPAP #1 ea 08/29/18 04/29/20 furosemide 20 mg PO DAILY PRN 01/22/19 09/14/20 losartan 50 mg PO DAILY 01/22/19 09/14/20 carvedilol 25 mg PO BID 05/08/19 09/14/20 minoxidil 5 mg PO DAILY 05/08/19 09/14/20 tamsulosin [Flomax] 0.4 mg PO BEDTIME 07/19/19 09/14/20 Previous Rx's Medication Instructions Recorded Xarelto 20 mg PO DAILY #90 tab 02/07/18 potassium citrate 10 mEq (1,080 10 meq PO TID #270 tab 04/29/20 mg) tablet,extended release Allergies Allergy/AdvReac Type Severity Reaction Status Date / Time niacin [NIACIN] AdvReac Severe Hypotension Verified 05/20/20 12:38 amlodipine [AMLODIPINE] AdvReac Unknown Verified 05/20/20 12:38 chlorthalidone AdvReac Unknown Elevated Verified 05/20/20 12:38 Creatinine gemfibrozil [GEMFIBROZIL] AdvReac Unknown Verified 05/20/20 12:38 hydrochlorothiazide AdvReac Unknown Verified 05/20/20 12:38 [HYDROCHLOROTHIAZIDE] hydroxychloroquine AdvReac Unknown Diarrhea Verified 05/20/20 12:38 [From Plaquenil] lisinopril [LISINOPRIL] AdvReac Unknown Diarrhea Verified 05/20/20 12:38 Review of Systems <SID Vanegas - Last Filed: 09/07/20 23:47> Review of Systems Narrative: General: Denies fever, chills, fatigue, malaise, sweats. Respiratory: Denies dyspnea, cough, wheezing, hemoptysis, sputum. Cardiovascular: Denies chest pain, palpitations, orthopnea, edema. Gastrointestinal: Denies nausea, vomiting, abdominal pain, diarrhea, constipation, melena. : See HPI Musculoskeletal: See HPI Skin: Denies rash, skin lesions, or other. Neurologic: Denies weakness, headache, numbness, change in speech, confusion, seizures, incoordination. Psychiatric: No concerning psychosocial issues. Patient History <SID Vanegas - Last Filed: 09/07/20 23:47> Medical History Coronary artery disease Depression Diabetes type 2, controlled Erectile dysfunction GERD (gastroesophageal reflux disease) History of nephrolithiasis History of nephrolithiasis History of nephrolithotomy with removal of calculi History of pulmonary embolism Hyperlipidemia Hypertension Kidney stone Leukopenia Lung cancer Metastatic malignant neoplasm to prostate Neuropathy Obstructive sleep apnea of adult Prostate cancer Prostate cancer metastatic to bone Renal insufficiency Rheumatoid arthritis RLS (restless legs syndrome) Small cell lung cancer Thrombocytopenia Thrombophlebitis of arm, left Urge incontinence Urinary calculi UTI (urinary tract infection) Surgical History H/O coronary angioplasty H/O umbilical hernia repair History of appendectomy History of cholecystectomy Hx of hernia repair Hx of lithotripsy Family History Father No problems noted. Mother No problems noted. Brother Hx of CABG Diabetes mellitus Coronary artery disease Social History marital status: unmarried,living together details: partner Vanessa Alonso, lives in [place] household members: significant other lives independently: No caregiver/support person: Yes Smoking Status: Current every day smoker alcohol intake: never Smoking Status: Current every day smoker alcohol intake frequency: holidays/special occasions only Substance Use Type: does not use Exam <SID Vanegas - Last Filed: 09/07/20 23:47> Narrative Exam Narrative: GEN: Alert, oriented x 3, well appearing and nourished. During initial encounter and physical exam, patient intermittently screams from pain in right groin. Head: Normal cephalic, atraumatic. No scalp or temporal tenderness, palpable mass or rash. EYES: Pupils are equal, round, and reactive to light and accommodation. ENT: Hearing grossly intact. Airway patent. Neck: Trachea in midline. No JVD, non-tender without lymphadenopathy. No masses or thyroid megaly. Supple, non-tender and no meningeal signs. CARDIAC: Normal regular rate and rhythm without murmurs, gallops, or rubs. No chest wall tenderness. No peripheral edema, cyanosis or pallor. Capillary refill is less than 2 seconds. RESPIRATORY: Lungs are clear to auscultate bilaterally. No cough, wheezes, rales, or rhonchi. No stridor, respiratory distress, increase work of breathing, or accessary muscle used. ABD: Abdomen soft, nontender and non-distended. No guarding or rebound tenderness to palpate. Bowel sounds are normal in all 4 quadrants. There is no palpable masses or organomegaly. EXT: Left calf pain resolved and no tenderness to palpate. No erythema, swelling left calf. Full painless ROM of all extremities with no loss of sensation, strength, effusion or edema. Patient is able to ambulate several steps using a walker but reports discomfort in right groin which is not tender to palpate. SKIN: Warm, dry, normal color for patient. No erythema, lesions or rash over visible areas. BACK: Nontender without deformity or crepitance. No flank tenderness. NEUROLOGICAL: Alert and oriented to place, time and person. Sensation and motor function intact bilaterally. No facial droops, dysphasia. PSYCHIATRIC: Good judgement and reason, without hallucinations, abnormal affect or abnormal behaviors during the examination. Patient is not suicidal. Initial Vital Signs Initial Vital Signs: Vital Signs Temperature 98.3 F 09/07/20 13:40 Pulse Rate 56 L 09/07/20 13:40 Respiratory Rate 16 09/07/20 13:40 Blood Pressure 71/43 L 09/07/20 13:40 Pulse Oximetry 95 09/07/20 13:40 <Annamaria Jeter DO - Last Filed: 09/15/20 02:33> Initial Vital Signs Initial Vital Signs: Vital Signs Temperature 98.3 F 09/07/20 13:40 Pulse Rate 56 L 09/07/20 13:40 Respiratory Rate 16 09/07/20 13:40 Blood Pressure 71/43 L 09/07/20 13:40 Pulse Oximetry 95 09/07/20 13:40 Scores <SID Vanegas - Last Filed: 09/07/20 23:47> GCS Batson coma scale eye opening: Spontaneous Batson coma scale verbal response: Orientated Stacey coma scale motor response: Obey commands Stacey coma scale total score: 15 Course <SID Vanegas - Last Filed: 09/07/20 23:47> Orders Ordered: Discontinued Medications Hydrocodone Bitart/Acetaminophen (Hydrocodone/Acet 5/325 Prepack) 1 bottle MISC SEEINSTR ONE Stop: 09/07/20 16:46 Last Admin: 09/07/20 16:56 Dose: 1 bottle Documented by: SANDOR Sodium Chloride (Normal Saline 0.9%) 500 mls @ 1,000 mls/hr IV BOLUS ONE Stop: 09/07/20 16:16 Last Infusion: 09/07/20 16:59 Dose: 0 mls/hr Documented by: Admin: 09/07/20 16:06 Dose: 1,000 mls/hr Documented by: BRADEN Morphine Sulfate (Morphine 2 Mg/Ml Inj) 2 mg IV NOW ONE Stop: 09/07/20 15:48 Last Admin: 09/07/20 16:05 Dose: 2 mg Documented by: BRADEN Vital Signs Vital signs: Vital Signs - 8 hr 09/07/20 15:30 09/07/20 16:03 09/07/20 16:30 Pulse Rate 59 L 61 57 L Respiratory Rate 19 15 15 Blood Pressure 140/67 Pulse Oximetry 97 98 97 <Annamaria Jeter DO - Last Filed: 09/15/20 02:33> Orders Ordered: Discontinued Medications Hydrocodone Bitart/Acetaminophen (Hydrocodone/Acet 5/325 Prepack) 1 bottle MISC SEEINSTR ONE Stop: 09/07/20 16:46 Last Admin: 09/07/20 16:56 Dose: 1 bottle Documented by: SANDOR Sodium Chloride (Normal Saline 0.9%) 500 mls @ 1,000 mls/hr IV BOLUS ONE Stop: 09/07/20 16:16 Last Infusion: 09/07/20 16:59 Dose: 0 mls/hr Documented by: Admin: 09/07/20 16:06 Dose: 1,000 mls/hr Documented by: BRADEN Morphine Sulfate (Morphine 2 Mg/Ml Inj) 2 mg IV NOW ONE Stop: 09/07/20 15:48 Last Admin: 09/07/20 16:05 Dose: 2 mg Documented by: BRADEN Vital Signs Vital signs: Vital Signs - 8 hr 09/07/20 15:30 09/07/20 16:03 09/07/20 16:30 Pulse Rate 59 L 61 57 L Respiratory Rate 19 15 15 Blood Pressure 140/67 Pulse Oximetry 97 98 97 MDM - Extremity (Nontraumatic) <SID Vanegas - Last Filed: 09/07/20 23:47> Differential Diagnosis Differential diagnosis: Likely deep vein thrombosis of lower extremity and other (pelvis/hip fracture, renal stone, groin strain, bone CA) Medical Records Attestation: I reviewed the patient's medical records. Lab Data Attestation: I reviewed the patient's lab results. Result diagrams: 09/07/20 13:49 09/07/20 13:49 Labs: Lab Results 09/07/20 09/07/20 09/07/20 Range/Units 13:49 13:49 13:49 WBC 5.0 (4.5-11.0) X10^3/uL RBC 3.43 L (4.5-5.9) X10^6/uL Hgb 11.3 L (13.5-17.5) g/dL Hct 32.2 L (41-53) % MCV 93.9 (80-100) fL MCH 33.0 (26-34) PG MCHC 35.2 (30-36) % RDW 12.9 (11.6-14.8) % Plt Count 90 L (150-400) X10^3/uL Neut % (Auto) 56.0 (50-75) % Lymph % (Auto) 31.6 (25-40) % Saunders % (Auto) 8.3 (3-14) % Eos % (Auto) 3.5 (2-4) % Baso % (Auto) 0.6 (0-2) % Neut # (Auto) 2800 (3864-6367) /uL Lymph # (Auto) 1600 (7300-7163) /uL Saunders # (Auto) 400 (0-900) /uL Eos # (Auto) 200 (0-450) /uL Baso # (Auto) 0 (0-100) /uL PT 20.6 H (10.1-12.7) SECONDS INR 1.8 H (0.9-1.3) APTT 45 H (26.4-36.2) SECONDS Sodium 138 (137-145) mmol/L Potassium 4.2 (3.4-5.1) mmol/L Chloride 107 (98-107) mmol/L Carbon Dioxide 27 (22-32) mmol/L BUN 19 (9-20) mg/dL Creatinine 1.29 H (0.66-1.25) mg/dL Estimated GFR 53.6 L (>60) mL/min BUN/Creatinine Ratio 14.7 (6-22) Glucose 120 H (80-110) mg/dL Calcium 9.3 (8.4-10.2) mg/dL Total Bilirubin 0.7 (0.2-1.3) mg/dL AST 22 (17-59) IU/L ALT 11 (<50) IU/L Alkaline Phosphatase 71 (38-126) U/L Total Creatine Kinase 57 (55-170) U/L CK-MB (CK-2) TNP CK-MB (CK-2) Rel Index TNP Troponin I < 0.012 (0.01-0.034) ng/mL Total Protein 6.4 (6.3-8.2) g/dL Albumin 3.7 (3.5-5.0) g/dL Globulin 2.7 (1.7-4.1) g/dL Albumin/Globulin Ratio 1.4 (1.0-2.8) Lipase 117 (23-300) U/L Imaging Data US - DVT: Radiologist's Impression: [address] [id number] ReportSigned Patient: Nahun Cintron EMR#: [id number]: [id number]:[id number]/Sex: 80 / MDate of Service: 09/07/20Loc: EDAccession Number: [id number] Procedure: US periph venous low extrem lt Ordering Provider: Annamaria Jeter D.O. PROCEDURE: US PERIPH VENOUS LOW EXTREM LT INDICATIONS: sudden onset left calf pain hx DVT TECHNIQUE: Real-time imaging, as well as color and pulse Doppler interrogation, were performed of the lower extremity deep veins from the inguinal ligament to the popliteal fossa . COMPARISON: [facility], CT, CT ANGIO CHEST PE PROTOCOL, 05/20/2020, 13:33. [facility], CR, XR CHEST 1V, 09/07/2020, 14:09. [facility], US, US PERIPH VENOUS LOW EXTREM LT, 09/24/2017, 15:44. FINDINGS: The common femoral, femoral and popliteal veins are normally compressible, and free of intraluminal thrombus. Color and pulse Doppler demonstrate normal phasic intraluminal flow. There is normal augmentation response to distal compression maneuver. IMPRESSION: Negative for deep venous thrombosis. Dictated by: Tramaine Meng M.D. on 09/07/2020 at 14:40 Approved by: Tramaine Meng M.D. on 09/07/2020 at 14:40 XR-Hip/pelvis: Radiologist's Impression: [address] [id number] ReportSigned Patient: Nahun Cintron EMR#: [id number]: [id number]:[id number]/Sex: 80 / MDate of Service: 09/07/20Loc: EDAccession Number: [id number] Procedure: XR hip w pel if done RT 2V Ordering Provider: Gael Arellano PROCEDURE: XR HIP W PEL IF DONE RT 2V INDICATIONS: right groin pain, hx of bone ca TECHNIQUE: AP pelvis with lateral view(s) of the right hip(s). COMPARISON: [facility], US, US PERIPH VENOUS LOW EXTREM LT, 09/07/2020, 15:07. [facility], CR, XR CHEST 1V, 09/07/2020, 14:09. [facility], NM, NM USHA NE SCAN WHOLE BODY, 04/06/2020, 11:38. [facility], CT, CT CHEST ABD PEL W CON, 04/06/2020, 9:11. FINDINGS: Bones: No fractures or dislocations. Pelvic ring appears intact. Age-appropriate lower lumbar spine degenerative changes are noted. A presumed bone island is seen within left proximal femur, as before. There is moderate superior joint space narrowing seen of hips, with associated remodeling changes with subchondral sclerosis and osteophyte formation. Soft tissues: The visualized bowel gas pattern is normal. No suspicious soft tissue calcifications. Atherosclerotic calcification is noted. IMPRESSION: No fractures or patrick neoplasm can be seen by plain. Please consider follow-up CT or nuclear medicine bone scan for further evaluation, if clinically appropriate. Dictated by: Tramaine Meng M.D. on 09/07/2020 at 15:14 Approved by: Tramaine Meng M.D. on 09/07/2020 at 15:16 ECG Data Attestation EKG: I personally reviewed and interpreted this ECG as follows: Prior ECG tracings: available for review Interpretation: Sinus bradycardia rate at 55. Left dominant axis. NH interval 178, QRS duration 98, QT/ QTC 448/428. Nonspecific T wave abnormality without acute ST changes. MDM Narrative Medical decision making narrative: This is a 80-year-old gentleman presents to ED with chief complain of not in left calf and concerned for DVT. Patient has a DVT history and pulmonary embolism and currently takes Xarelto. Patient denies chest pain or dyspnea. While patient was waiting in ED room and after had labs and US tests done, he started experiencing severe, intermittent non-traumatic right groin pain. Patient has history of bone cancer metastasized from prostate cancer. Labs shows thrombocytopenia with platelet count of 90, anemia with H/H of 11.3/32.2 which is the patient's near baseline. Elevated PT/PTT/INR likely from Xarelto use. Kidney function test is slightly decreased from his base line with Cr of 1.29 and eGFR of 53.6 and slightly elevated glucose of 120. Troponin was negative. Ultrasound test was negative for DVT. Patient states left calf pain was resolved when he was evaluated after the US test. Given the patient's bone cancer history Right hip/pelvis xray test was obtained and indicates no obvious fracture or patrick neoplasm seen. Patient reports no previous history of similar pain in the past. Differential diagnose of renal stone considered. Patient was medicated with 500 mL of normal saline due to hypotension and noticed has a history of orthostatic hypotension. patient was medicated with Morphine 2mg IV and reported improved pain and comfortable. Will treat right groin pain as groin pain and he was discharged to home with [facility] severe pain and to take 0.5 tab. Adised to use Tylenol 650 mg up to 3 times a day as needed as baseline treatment. Patient has an appointment with Dr. Cameron tomorrow. Return precautions discussed with patient patient and his partner verbalized understanding and agreement with the treatment plan. <Annamaria Jeter, DO - Last Filed: 09/15/20 02:33> Lab Data Labs: Lab Results 09/07/20 09/07/20 09/07/20 Range/Units 13:49 13:49 13:49 WBC 5.0 (4.5-11.0) X10^3/uL RBC 3.43 L (4.5-5.9) X10^6/uL Hgb 11.3 L (13.5-17.5) g/dL Hct 32.2 L (41-53) % MCV 93.9 (80-100) fL MCH 33.0 (26-34) PG MCHC 35.2 (30-36) % RDW 12.9 (11.6-14.8) % Plt Count 90 L (150-400) X10^3/uL Neut % (Auto) 56.0 (50-75) % Lymph % (Auto) 31.6 (25-40) % Saunders % (Auto) 8.3 (3-14) % Eos % (Auto) 3.5 (2-4) % Baso % (Auto) 0.6 (0-2) % Neut # (Auto) 2800 (5560-2387) /uL Lymph # (Auto) 1600 (3773-3836) /uL Saunders # (Auto) 400 (0-900) /uL Eos # (Auto) 200 (0-450) /uL Baso # (Auto) 0 (0-100) /uL PT 20.6 H (10.1-12.7) SECONDS INR 1.8 H (0.9-1.3) APTT 45 H (26.4-36.2) SECONDS Sodium 138 (137-145) mmol/L Potassium 4.2 (3.4-5.1) mmol/L Chloride 107 (98-107) mmol/L Carbon Dioxide 27 (22-32) mmol/L BUN 19 (9-20) mg/dL Creatinine 1.29 H (0.66-1.25) mg/dL Estimated GFR 53.6 L (>60) mL/min BUN/Creatinine Ratio 14.7 (6-22) Glucose 120 H (80-110) mg/dL Calcium 9.3 (8.4-10.2) mg/dL Total Bilirubin 0.7 (0.2-1.3) mg/dL AST 22 (17-59) IU/L ALT 11 (<50) IU/L Alkaline Phosphatase 71 (38-126) U/L Total Creatine Kinase 57 (55-170) U/L CK-MB (CK-2) TNP CK-MB (CK-2) Rel Index TNP Troponin I < 0.012 (0.01-0.034) ng/mL Total Protein 6.4 (6.3-8.2) g/dL Albumin 3.7 (3.5-5.0) g/dL Globulin 2.7 (1.7-4.1) g/dL Albumin/Globulin Ratio 1.4 (1.0-2.8) Lipase 117 (23-300) U/L Discharge Plan Departure Patient Disposition: Home Clinical Impression: Pain of left calf Pain in the groin Qualifiers: Laterality: right Qualified Code(s): R10.31 - Right lower quadrant pain Instructions: DI for Calf Muscle Strain, DI for Groin Strain Activity Restrictions/Additional Instructions: You have been diagnosed with [right groin and left calf pain likely from strain. No fracture per x-ray test in right pelvis. No indications for DVT per ultrasound in left calf. Slightly decreased kidney function test otherwise assuring labs.]. What to do: *Take your medications as directed. Please take [id number] Tylenol 650 mg up to 3 times a day as needed for pain. For severe pain, take half a tab of [place] as needed. [place] can cause drowsiness so please be careful with her balance. Please do not drive, drink alcohol, operate heavy equipments while on [place]. Also he can cause constipation so please take precautions. *Follow up with your primary care provider tomorrow as scheduled. Let them know you were seen in the ED and that we asked you to be seen in follow up. *Return to ED if you have any new, worsening, or concerning symptoms, such as [worsening pain, weakness to lower extremities, chest pain, breathing difficulty, able to tolerate fluids, fever or any acute concerns]. Prescriptions: No Action atorvastatin [Lipitor] 40 MG tablet 40 mg PO BEDTIME Qty: 0 RF: 0 Xarelto 20 mg Tablet 20 mg PO DAILY Qty: 90 RF: 0 losartan 50 mg Tablet 50 mg PO DAILY RF: 0 furosemide 20 mg Tablet 20 mg PO DAILY PRN (Reason: Edema) RF: 0 carvedilol 25 mg Tablet 25 mg PO BID RF: 0 minoxidil 10 mg Tablet 5 mg PO DAILY RF: 0 tamsulosin [Flomax] 0.4 mg capsule 0.4 mg PO BEDTIME RF: 0 (DME) [employer] Dreamstation BIPAP Qty: 1 RF: 0 potassium citrate 10 mEq (1,080 mg) tablet extended release 10 meq PO TID Qty: 270 RF: 3 Referrals: Gurdeep Cameron MD [Primary Care Provider] - <Annamaria Jeter DO - Last Filed: 09/15/20 02:33> Cosign ED Attending Yobanyature Attestation: I was immediately available in the department for consultation. Documentation has been reviewed.
[2020-09-07] MEDS: HYDROCODONE/ACET 5/325 PREPACK 1 BOTTLE MISC (16:56)
== END 2020-09-07 17:12 | disposition home or self-care (01) ==
PROVIDERS: Emergency Medicine; Emergency Provider Nurse Practitioner Family; PCP Internal Medicine
DX: M79.605 Pain in left leg (principal); R10.31 Right lower quadrant pain; R00.1 Bradycardia, unspecified; Z79.01 Long term (current) use of anticoagulants; R79.89 Other specified abnormal findings of blood chemistry
CPT/HCPCS: 36415; 71045; 73502; 80053; 82550; 83690; 84484; 85025; 85610; 85730; 93005; 93971; 96361; 96374; 99284; J2270

== ENCOUNTER 2020-10-28 15:58 | Emergency (ER) | payer MEDICARE, OTHER, SELFPAY ==
[2020-10-28] VITALS (15 sets, daily range): BP systolic 105–153; BP diastolic 66–90; PULSE 59–72; RESP 13–22; TEMP 36.6; O2SAT 91–96
--- NOTE | 2020-10-28 16:04 | DI.RAD.S_ITS ---
PROCEDURE: XR CHEST 1V INDICATIONS: chest pain TECHNIQUE: One view of the chest was acquired. COMPARISON: [facility], CT, CT CHEST ABD PEL W CON, 04/06/2020, 9:11. [facility], CT, CT ANGIO CHEST PE PROTOCOL, 05/20/2020, 13:33. [facility], CR, XR CHEST 1V, 09/07/2020, 14:09. [facility], CR, XR CHEST 1V, 05/20/2020, 12:41. FINDINGS: Surgical changes and devices: None. Lungs and pleura: Lungs appears clear. Opacities or nodules seen on prior CT are not well visualized. No pleural effusions or pneumothorax. Mediastinum: Mediastinal contours appear unchanged. Heart size is enlarged. Bones and chest wall: No suspicious bony lesions. Overlying soft tissues appear unremarkable. IMPRESSION: No acute cardiopulmonary abnormality identified. Dictated by: Curt Conte M.D. on 10/28/2020 at 16:33 Approved by: Curt Conte M.D. on 10/28/2020 at 16:38
[2020-10-28 16:21] LABS: Add Manual Diff / Slide Review NO; Basophils Absolute Auto 0 /uL (0-100); Basophils Percent Auto 0.9 % (0-2); Eosinophils Absolute Auto 200 /uL (0-450); Eosinophils Percent Auto 4.5 % (2-4); Hematocrit 32.1 % (41-53); Hemoglobin 11.5 g/dL (13.5-17.5); Lymphocytes Absolute Auto 1400 /uL (1100-4500); Lymphocytes Percent Auto 29.1 % (25-40); Mean Corpuscular HGB Conc 35.9 % (30-36); Mean Corpuscular Hemoglobin 33.2 PG (26-34); Mean Corpuscular Volume 92.3 fL (80-100); Monocytes Absolute Auto 400 /uL (0-900); Monocytes Percent Auto 8.8 % (3-14); Neutrophils Absolute Auto 2800 /uL (1500-7000); Neutrophils Percent Auto 56.7 % (50-75); Platelet Count 108 X10^3/uL (150-400); Red Blood Cell Count 3.48 X10^6/uL (4.5-5.9); Red Cell Distribution Width 12.9 % (11.6-14.8); White Blood Cell Count 4.9 X10^3/uL (4.5-11.0)
[2020-10-28 16:29] LABS: Alanine Aminotransferase 12 IU/L (<50); Albumin 3.6 g/dL (3.5-5.0); Albumin Globulin Ratio 1.3 (1.0-2.8); Alkaline Phosphatase 76 U/L (38-126); Aspartate Aminotransferase 23 IU/L (17-59); Bilirubin Total 0.7 mg/dL (0.2-1.3); Blood Urea Nitrogen 18 mg/dL (9-20); Carbon Dioxide 28 mmol/L (22-32); Chloride 107 mmol/L (98-107); Creatine Kinase 67 U/L (55-170); Estimated Glomerular Filt Rate > 60.0 mL/min (>60); Globulin 2.8 g/dL (1.7-4.1); Glucose 231 mg/dL (80-110); HEMOLYSIS 34 (0-50); Lipase 124 U/L (23-300); Potassium 4.1 mmol/L (3.4-5.1); Sodium 139 mmol/L (137-145); Total Protein 6.4 g/dL (6.3-8.2)
--- NOTE | 2020-10-28 16:32 | ED.CHESTPAIN ---
HPI - Chest Pain General Chief Complaint: Chest Pain Stated Complaint: chest pain Time Seen by Provider: 10/28/20 16:28 Source: patient and EMS Mode of arrival: EMS History of Present Illness HPI narrative: Patient is an 80-year-old male with memory impairment, coronary artery disease, pulmonary embolism on Xarelto presenting with sudden onset of right-sided chest pain. He says it started suddenly while at rest today on the right side. It is sharp in nature lasting only seconds. Nonradiating. He denies any shortness of breath. He took 1 nitroglycerin at home and then they called 911. He intermittently has pain here. However sometimes he seems to forget if he is having pain. Currently during my questioning he is not having pain. He denies any fever or chills. No cough or palpitations. Related Data Home Medications Medication Instructions Recorded Confirmed atorvastatin 40 mg tablet (Lipitor) 40 mg PO BEDTIME #0 03/21/17 09/14/20 [employer] Dreamstation BIPAP #1 ea 08/29/18 04/29/20 furosemide 20 mg tablet 20 mg PO DAILY PRN 01/22/19 09/14/20 losartan 50 mg tablet 50 mg PO DAILY 01/22/19 09/14/20 carvedilol 25 mg tablet 25 mg PO BID 05/08/19 09/14/20 minoxidil 10 mg tablet 5 mg PO DAILY 05/08/19 09/14/20 Previous Rx's Medication Instructions Recorded rivaroxaban 20 mg tablet (Xarelto) 20 mg PO DAILY #90 tab 02/07/18 potassium citrate 10 mEq (1,080 10 meq PO TID #270 tab 04/29/20 mg) tablet,extended release tamsulosin 0.4 mg capsule (Flomax) 0.4 mg PO BEDTIME #90 cap 09/29/20 Allergies Allergy/AdvReac Type Severity Reaction Status Date / Time niacin [NIACIN] AdvReac Severe Hypotension Verified 05/20/20 12:38 amlodipine [AMLODIPINE] AdvReac Unknown Verified 05/20/20 12:38 chlorthalidone AdvReac Unknown Elevated Verified 05/20/20 12:38 Creatinine gemfibrozil [GEMFIBROZIL] AdvReac Unknown Verified 05/20/20 12:38 hydrochlorothiazide AdvReac Unknown Verified 05/20/20 12:38 [HYDROCHLOROTHIAZIDE] hydroxychloroquine AdvReac Unknown Diarrhea Verified 05/20/20 12:38 [From Plaquenil] lisinopril [LISINOPRIL] AdvReac Unknown Diarrhea Verified 05/20/20 12:38 Review of Systems Review of Systems Narrative: GENERAL: Denies chills, fatigue, malaise, fever, sweats, travel HEENT: Denies sinus pain, ear pain, sore throat, difficulty swallowing, neck pain RESPIRATORY: Denies dyspnea, cough, wheezing, hemoptysis, sputum. CARDIOVASCULAR: See HPI GASTROINTESTINAL: Denies nausea, vomiting, abdominal pain, diarrhea, constipation, melena. : Denies dysuria, frequency, incontinence, hematuria, urinary retention, flank pain. MUSCULOSKELETAL: Denies weakness, joint pain, or bony pain SKIN: No rash, no erythema, no pruritus NEUROLOGIC: Denies weakness, dizziness, headache, numbness, change in speech, confusion PSYCHIATRIC: No concerning psychosocial issues. 12 point review of systems is negative except for those stated above and HPI Patient History Medical History Coronary artery disease Depression Diabetes type 2, controlled Erectile dysfunction GERD (gastroesophageal reflux disease) History of nephrolithiasis History of nephrolithiasis History of nephrolithotomy with removal of calculi History of pulmonary embolism Hyperlipidemia Hypertension Kidney stone Leukopenia Lung cancer Metastatic malignant neoplasm to prostate Neuropathy Obstructive sleep apnea of adult Prostate cancer Prostate cancer metastatic to bone Renal insufficiency Rheumatoid arthritis RLS (restless legs syndrome) Small cell lung cancer Thrombocytopenia Thrombophlebitis of arm, left Urge incontinence Urinary calculi UTI (urinary tract infection) Surgical History H/O coronary angioplasty H/O umbilical hernia repair History of appendectomy History of cholecystectomy Hx of hernia repair Hx of lithotripsy Family History Father No problems noted. Mother No problems noted. Brother Hx of CABG Diabetes mellitus Coronary artery disease Social History marital status: unmarried,living together details: partner Vanessa Alonso, lives in [place] household members: significant other lives independently: No caregiver/support person: Yes Smoking Status: Current every day smoker alcohol intake: never Smoking Status: Current every day smoker alcohol intake frequency: holidays/special occasions only Substance Use Type: does not use Exam Initial Vital Signs Initial Vital Signs: Vital Signs Temperature 97.8 F 10/28/20 15:58 Pulse Rate 63 10/28/20 15:58 Respiratory Rate 16 10/28/20 15:58 Blood Pressure 123/68 10/28/20 15:58 Pulse Oximetry 95 10/28/20 15:58 GENERAL: Alert 80-year-old male HEENT: Head atraumatic,EOMI, pupils reactive, face symmetric, moist mucous membranes CARDIOVASCULAR: Sinus rhythm rate 57 CO interval 1 4 QRS 96 QTC 430 RESPIRATORY: Breath sounds equal bilaterally, no wheezes rales or rhonchi. ABDOMEN: Soft, nontender. Normoactive bowel sounds all 4 quadrants. No guarding or rebound. EXTREMITIES: Normal range of motion, no clubbing or edema. Neurovascularly intact NEUROLOGICAL: Alert and oriented x4.Normal gait and speech. SKIN: Warm, dry, no laceration, no petechiae, no rashes or lesions. Course Orders Ordered: ED Orders 10/28/20 16:04 XR chest 1V Stat EKG-12 Lead Stat 10/28/20 16:08 Complete Blood Count AUTO DIFF Stat Comprehensive Metabolic Panel Stat Lipase Stat NT-proBNP (BNP-Adult 18+) Stat Troponin & CK Cardiac Panel Stat 10/28/20 16:21 COVID19 - ADMIT ([employer] swab/PCR) Stat 10/28/20 18:06 Troponin I Stat Discontinued Medications Acetaminophen (Acetaminophen 325 Mg Tablet) 650 mg PO NOW ONE Stop: 10/28/20 17:20 Last Admin: 10/28/20 17:32 Dose: 650 mg Documented by: MAIRA Nitroglycerin (Nitroglycerin 0.3 Mg Sl Tab) 0.3 mg SL NOW ONE Stop: 10/28/20 16:31 Last Admin: 10/28/20 16:36 Dose: Not Given Documented by: ANTONETTE Nitroglycerin (Nitroglycerin 0.4 Mg Sl Tab) 0.4 mg SL [id number] PRN PRN Reason: Chest Pain Last Admin: 10/28/20 17:07 Dose: 0.4 mg Documented by: Admin: 10/28/20 16:50 Dose: 0.4 mg Documented by: Admin: 10/28/20 16:45 Dose: 0.4 mg Documented by: BUTCH Vitamin D (Cholecalciferol (Vitamin D3) 1,000 Unit Tablet) 1,000 unit PO NOW ONE Stop: 10/28/20 17:46 Last Admin: 10/28/20 17:50 Dose: 1,000 unit Documented by: MAIRA Vital Signs Vital signs: Vital Signs - 8 hr 10/28/20 15:58 10/28/20 16:18 10/28/20 16:22 Temperature 97.8 F Pulse Rate 63 61 59 L Respiratory Rate 16 22 19 Blood Pressure 123/68 129/66 Pulse Oximetry 95 95 95 10/28/20 16:30 10/28/20 16:51 10/28/20 16:57 Temperature Pulse Rate 60 71 72 Respiratory Rate 17 18 13 Blood Pressure 146/73 H 105/66 107/67 Pulse Oximetry 96 91 91 10/28/20 17:00 10/28/20 17:07 10/28/20 17:19 Temperature Pulse Rate 60 62 72 Respiratory Rate 20 19 18 Blood Pressure 151/72 H 140/90 Pulse Oximetry 94 94 10/28/20 17:30 10/28/20 18:00 10/28/20 18:30 Temperature Pulse Rate 67 68 72 Respiratory Rate 17 18 18 Blood Pressure 149/79 H 153/79 H 151/82 H Pulse Oximetry 10/28/20 19:00 10/28/20 19:30 10/28/20 20:00 Temperature Pulse Rate 66 72 72 Respiratory Rate 16 18 19 Blood Pressure 141/74 H 143/74 H 146/78 H Pulse Oximetry MDM - Chest Pain Lab Data Result diagrams: 10/28/20 16:08 10/28/20 16:08 Labs: Lab Results 10/28/20 10/28/20 10/28/20 Range/Units 16:08 16:08 16:08 WBC 4.9 (4.5-11.0) X10^3/uL RBC 3.48 L (4.5-5.9) X10^6/uL Hgb 11.5 L (13.5-17.5) g/dL Hct 32.1 L (41-53) % MCV 92.3 (80-100) fL MCH 33.2 (26-34) PG MCHC 35.9 (30-36) % RDW 12.9 (11.6-14.8) % Plt Count 108 L (150-400) X10^3/uL Neut % (Auto) 56.7 (50-75) % Lymph % (Auto) 29.1 (25-40) % Borden % (Auto) 8.8 (3-14) % Eos % (Auto) 4.5 H (2-4) % Baso % (Auto) 0.9 (0-2) % Neut # (Auto) 2800 (2228-7526) /uL Lymph # (Auto) 1400 (6910-9789) /uL Borden # (Auto) 400 (0-900) /uL Eos # (Auto) 200 (0-450) /uL Baso # (Auto) 0 (0-100) /uL Sodium 139 (137-145) mmol/L Potassium 4.1 (3.4-5.1) mmol/L Chloride 107 (98-107) mmol/L Carbon Dioxide 28 (22-32) mmol/L BUN 18 (9-20) mg/dL Creatinine 1.06 (0.66-1.25) mg/dL Estimated GFR > 60.0 (>60) mL/min BUN/Creatinine Ratio 17.0 (6-22) Glucose 231 H (80-110) mg/dL Calcium 9.0 (8.4-10.2) mg/dL Total Bilirubin 0.7 (0.2-1.3) mg/dL AST 23 (17-59) IU/L ALT 12 (<50) IU/L Alkaline Phosphatase 76 (38-126) U/L Total Creatine Kinase 67 (55-170) U/L CK-MB (CK-2) TNP CK-MB (CK-2) Rel Index TNP Troponin I < 0.012 (0.01-0.034) ng/mL NT-Pro-B Natriuret Pep 734 H (<450) pg/mL Total Protein 6.4 (6.3-8.2) g/dL Albumin 3.6 (3.5-5.0) g/dL Globulin 2.8 (1.7-4.1) g/dL Albumin/Globulin Ratio 1.3 (1.0-2.8) Lipase 124 (23-300) U/L SARS-CoV-2 (PCR) (Negative) 10/28/20 10/28/20 Range/Units 16:21 18:06 WBC (4.5-11.0) X10^3/uL RBC (4.5-5.9) X10^6/uL Hgb (13.5-17.5) g/dL Hct (41-53) % MCV (80-100) fL MCH (26-34) PG MCHC (30-36) % RDW (11.6-14.8) % Plt Count (150-400) X10^3/uL Neut % (Auto) (50-75) % Lymph % (Auto) (25-40) % Borden % (Auto) (3-14) % Eos % (Auto) (2-4) % Baso % (Auto) (0-2) % Neut # (Auto) (8551-6828) /uL Lymph # (Auto) (7749-7372) /uL Borden # (Auto) (0-900) /uL Eos # (Auto) (0-450) /uL Baso # (Auto) (0-100) /uL Sodium (137-145) mmol/L Potassium (3.4-5.1) mmol/L Chloride (98-107) mmol/L Carbon Dioxide (22-32) mmol/L BUN (9-20) mg/dL Creatinine (0.66-1.25) mg/dL Estimated GFR (>60) mL/min BUN/Creatinine Ratio (6-22) Glucose (80-110) mg/dL Calcium (8.4-10.2) mg/dL Total Bilirubin (0.2-1.3) mg/dL AST (17-59) IU/L ALT (<50) IU/L Alkaline Phosphatase (38-126) U/L Total Creatine Kinase (55-170) U/L CK-MB (CK-2) CK-MB (CK-2) Rel Index Troponin I < 0.012 (0.01-0.034) ng/mL NT-Pro-B Natriuret Pep (<450) pg/mL Total Protein (6.3-8.2) g/dL Albumin (3.5-5.0) g/dL Globulin (1.7-4.1) g/dL Albumin/Globulin Ratio (1.0-2.8) Lipase (23-300) U/L SARS-CoV-2 (PCR) Negative (Negative) Imaging Data Chest x-ray: Radiologist's Impression: PROCEDURE: XR CHEST 1V INDICATIONS: chest pain TECHNIQUE: One view of the chest was acquired. COMPARISON: [facility], CT, CT CHEST ABD PEL W CON, 04/06/2020, 9:11. [facility], CT, CT ANGIO CHEST PE PROTOCOL, 05/20/2020, 13:33. [facility], CR, XR CHEST 1V, 09/07/2020, 14:09. [facility], CR, XR CHEST 1V, 05/20/2020, 12:41. FINDINGS: Surgical changes and devices: None. Lungs and pleura: Lungs appears clear. Opacities or nodules seen on prior CT are not well visualized. No pleural effusions or pneumothorax. Mediastinum: Mediastinal contours appear unchanged. Heart size is enlarged. Bones and chest wall: No suspicious bony lesions. Overlying soft tissues appear unremarkable. IMPRESSION: No acute cardiopulmonary abnormality identified. Dictated by: Curt Conte M.D. on 10/28/2020 at 16:33 Approved by: Curt Conte M.D. on 10/28/2020 at 16:38 ECG Data Interpretation: EKG 1. Normal sinus rhythm rate 57 CO interval 174 QRS [address] changes or T-wave inversions Q-wave noted lead 3 similar to prior EKG 2. Sinus rhythm rate 57 CO interval 180 QRS [address] changes or T-wave inversions Q-wave noted in lead 3 similar to previous EKG MDM Narrative Medical decision making narrative: The patient continue to have some intermittent pain, but lasts for only seconds to minutes It does seem to be on the right side. He is actually given Tylenol which seems to help the most. He has 2- troponins. I discussed with both he and about staying for stress test. He has not seen a parts remover in a couple of years and has not had a stress test in a few years as well. He is quite adamant about going home. He understands that he may have a heart attack at home he understands that he needs more testing in to see Cardiology. The also understands his risk. They understand that they may return to the emergency department at any time if he is having any new or worsening pain. I discussed all findings with the patient and , Education has been performed regarding treatment plan, diagnosis, warning signs and symptoms and all concerns have been addressed. Verbally agree with and understood all of the above. Discharge Plan Departure Patient Disposition: Home Clinical Impression: Atypical chest pain Instructions: DI for Atypical Chest Pain Activity Restrictions/Additional Instructions: *You have been diagnosed with atypical chest pain *What to do: You have not been completely ruled out for heart attack, but blood work is reassuring today. You need a stress test and further cardiac testing. Please follow up with primary care doctor. *Continue to take medications as directed Tylenol 500 mg every 4-6 hours if needed for [id number] pain *Follow up with your primary care provider in 2-3 days *Return to ER if you should have new or worsening chest pain, increasing shortness of breath or any new, worsening or concerning symptoms Prescriptions: No Action atorvastatin [Lipitor] 40 MG tablet 40 mg PO BEDTIME Qty: 0 RF: 0 tamsulosin [Flomax] 0.4 mg capsule 0.4 mg PO BEDTIME Qty: 90 RF: 3 Xarelto 20 mg Tablet 20 mg PO DAILY Qty: 90 RF: 0 losartan 50 mg Tablet 50 mg PO DAILY RF: 0 furosemide 20 mg Tablet 20 mg PO DAILY PRN (Reason: Edema) RF: 0 carvedilol 25 mg Tablet 25 mg PO BID RF: 0 minoxidil 10 mg Tablet 5 mg PO DAILY RF: 0 (DME) [employer] BIPAP Qty: 1 RF: 0 potassium citrate 10 mEq (1,080 mg) tablet extended release 10 meq PO TID Qty: 270 RF: 3 Referrals: Gurdeep Cameron MD [Primary Care Provider] -
[2020-10-28 16:41] LABS: Troponin I < 0.012 ng/mL (0.01-0.034)
[2020-10-28] MEDS: NITROGLYCERIN 0.4 MG SL TAB SL ×3 (16:45→17:07)
[2020-10-28 17:10] LABS: NT-proBNP (BNP-Adult 18+) 734 pg/mL (<450)
[2020-10-28] MEDS: ACETAMINOPHEN 325 MG TABLET 650 MG PO (17:32)
[2020-10-28 17:35] LABS: COVID19 - ADMIT (NP swab/PCR) Negative (Negative)
[2020-10-28] MEDS: CHOLECALCIFEROL (VITAMIN D3) 1,000 UNIT TABLET 1000 UNIT PO (17:50)
[2020-10-28 18:49] LABS: Troponin I < 0.012 ng/mL (0.01-0.034)
== END 2020-10-28 20:11 | disposition home or self-care (01) ==
PROVIDERS: Emergency Provider Emergency Medicine; PCP Internal Medicine
DX: R07.89 Other chest pain (principal); Z20.822 Contact with and (suspected) exposure to COVID-19; Z79.01 Long term (current) use of anticoagulants
CPT/HCPCS: 36415; 71045; 80053; 82550; 83690; 83880; 84484; 85025; 87635; 93005; 93010; 99284; C9803

== ENCOUNTER 2020-11-09 13:45 | Outpatient (RCR) | payer MEDICARE, OTHER, SELFPAY ==
--- NOTE | 2020-10-14 17:41 | PT.OIE ---
Current Diagnoses Hereditary and idiopathic neuropathy, unspecified (10/14/20) Other lack of coordination (10/14/20) Weakness (10/14/20) Past Medical History (Last Reviewed 09/07/20 @ 23:24 by SID Vanegas) Coronary artery disease Depression Diabetes type 2, controlled Erectile dysfunction GERD (gastroesophageal reflux disease) H/O coronary angioplasty H/O umbilical hernia repair History of appendectomy History of cholecystectomy History of nephrolithiasis History of nephrolithiasis History of nephrolithotomy with removal of calculi History of pulmonary embolism Hx of hernia repair Hx of lithotripsy Hyperlipidemia Hypertension Kidney stone Leukopenia Lung cancer Metastatic malignant neoplasm to prostate Neuropathy Obstructive sleep apnea of adult Prostate cancer Prostate cancer metastatic to bone Renal insufficiency Rheumatoid arthritis RLS (restless legs syndrome) Small cell lung cancer Thrombocytopenia Thrombophlebitis of arm, left Urge incontinence Urinary calculi UTI (urinary tract infection) Past Surgical History (Last Reviewed 09/07/20 @ 23:24 by SID Vanegas) H/O coronary angioplasty H/O umbilical hernia repair History of appendectomy History of cholecystectomy Hx of hernia repair Hx of lithotripsy Visit Care Team Role Provider Type Gurdeep Cameron MD Attending Provider Physician Primary Care Provider Referring Provider Specialty: Internal Medicine Address: [address] [place] [address], [facility] Email: [email or web address] Initial Evaluation PT-OP-A Visit Information Start: 10/14/20 16:59 Freq: Status: Active Protocol: Document 10/14/20 17:00 HH (Rec: 10/14/20 17:41 [email or web address]) Out-Patient Physical Therapy Visit Information Visit Information Visit Type Initial Evaluation Visit Note presents during eval Visit Start Time 14:30 Visit Stop Time 15:15 Total Visit Minutes 45 Visit Number 04/28 Number of SECURITY CONTROL ROOM OFFICER Visits 0 Evaluation Information Evaluation Date 10/14/20 PT-OP-B Current Condition Start: 10/14/20 16:59 Freq: Status: Active Protocol: Document 10/14/20 17:00 HH (Rec: 10/14/20 17:41 HH [email or web address]) Current Condition History of Current Condition Onset Date 2017 Current Complaints difficulty in walking, balance and car transfers, History of Current Condition Nahun is a 80 yo male here with his for therapy today. 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 He had chemo and radiation to the lung in 2018. Pt's overall mobility, strength and balance have gone down since. He hasnt been able to return to sailing which is what he loves d/t poor balance and enduranec. He also has symptoms of cancer related fatigue which limits his walking endurance up to 30-50 ft with SPC/ FWW. Pt prefers to use SPC d/t L shoulder and hand soreness. However, pt's has to CGA with gait belt for pt's all mobility d/t his poor balance. Pt also has been complaining difficulty lifting his legs into the car who has significant pain at his groin and anterior hip. Pt is pretty much very sedentary nowadays as his stated. No falls since her PT in 2019. Current Functional Impairments (Reported) Functional Limitations- ADL's min PIANO STRINGER from supine to sit CGA for sit to supine Functional Limitations- Mobility/Gait amb 30-50 ft with FWW/SPC at most before a sitting break CGA with gait belt at all times. difficulty lifting his LEs for car transfer. Functional Limitations- Recreation/ unable to sail d/t poor Hobbies balance and endurance PT-OP-C Subjective Start: 10/14/20 16:59 Freq: Status: Active Protocol: Document 10/14/20 17:00 HH (Rec: 10/14/20 17:41 [email or web address]) Patient Questionnaires Lower Extremity Functional Scale LEFS Score 17 LEFS Impairment 60 to 79% Impaired (Score 17- 31) PT-OP-E Functional Tests Start: 10/14/20 16:59 Freq: Status: Active Protocol: Document 10/14/20 17:00 HH (Rec: 10/14/20 17:41 [email or web address]) Functional Tests 2 Minute Walk Test Distance 177 Device Used FWW Comments no break taken but pt requested to sit at the end 30 Second Sit to Stand Test Score 9 times (21 inch table) Comments with UE on FWW to push off. Five Times Sit to Stand Test Score 12s (21 inch table) Comments with UE on FWW to push off PT-OP-F Manual Assessment Start: 10/14/20 16:59 Freq: Status: Active Protocol: Document 10/14/20 17:00 HH (Rec: 10/14/20 17:41 [email or web address]) Manual Assessments Soft Tissue Assessment Soft Tissue Mobility Assessment significant hypertonicity at bilateral hip flexors and hip adductors. PT-OP-G Mobility & Gait Start: 10/14/20 16:59 Freq: Status: Active Protocol: Document 10/14/20 17:00 HH (Rec: 10/14/20 17:41 HH [email or web address]) OP Mobility Evaluation Bed Mobility Supine to and from Sit supine to sit with PIANO STRINGER from sit to supine with CGA OP Gait Assessment Gait Deviations General Gait Pattern Decreased Stride Length, Decreased Feet Clearance, Flexed Trunk Factors Limiting Gait Function Factors Limiting Gait Function Decreased Activity Tolerance, Decreased Strength,Limited Range of Motion,Pain,Poor Balance,Poor Safety Awareness Comments Gait Comments pt tends to get fatigue and SOB easily Stair Climbing Evaluation Devices Stair Climbing Assistive Devices Left Railing,Right Railing Technique/Endurance Stair Climbing Direction Ascend and Descend Stair Climbing Technique Step to Step PT-OP-K Range of Motion Start: 10/14/20 16:59 Freq: Status: Active Protocol: Document 10/14/20 17:00 HH (Rec: 10/14/20 17:41 [email or web address]) Hip Goniometric Range of Motion Hip Left Active Hip ROM WFL No Straight Leg Raise 45 Comments SLR with significant weakness Right Active Hip ROM WFL No Straight Leg Raise 50 Comments SLR with significant weakness PT-OP-M Strength Start: 10/14/20 16:59 Freq: Status: Active Protocol: Document 10/14/20 17:00 HH (Rec: 10/14/20 17:41 [email or web address]) Hip Strength Hip Manual Muscle Testing Right Flexion (L2) 3 Fair Extension (S1) 4- Good- Abduction 3+ Fair+ Adduction 3+ Fair+ Left Flexion (L2) 3 Fair Extension (S1) 4- Good- Abduction 3+ Fair+ Adduction 3+ Fair+ Knee Strength Knee Manual Muscle Testing Right Flexion (S2) 4 Good Extension (L3) 4- Good- Left Flexion (S2) 4 Good Extension (L3) 4- Good- Comments pain with knee extension Ankle/Foot Strength Ankle and Foot Manual Muscle Testing Right Dorsiflexion (L4) 4+ Good+ Plantarflexion (S1) 4+ Good+ Left Dorsiflexion (L4) 4+ Good+ Plantarflexion (S1) 4+ Good+ PT-OP-T Assessment and Plan Start: 10/14/20 16:59 Freq: Status: Active Protocol: Document 10/14/20 17:00 (Rec: 10/14/20 17:41 [email or web address]) Physical Therapy Assessment Rehab Potential Rehabilitation Potential Good Evaluation Complexity Number of Personal Factors/Comorbidities 3 or More Number of Body Systems Impaired 3 Clinical Presentation at Evaluation Stable Impairments Impairments Activity Tolerance,Balance, Edema,Functional Activities, Functional Mobility,Gait,Pain, Posture,ROM,Soft Tissue Mobility,Strength,Transfers Goals LE strength Impairment pt completes 9 x STS with FWW in 30 secs Short Term Goal (STG) pt will shows improved LE to be able to complete 10x STS without using FWW in 30 secs. STG Duration 6 weeks Car Inspector Goal (LTG) pt will shows improved LE to be able to complete 12x STS without using FWW in 30 secs. LTG Duration 12 weeks car transfer Impairment pt is uable to lift BLE independently for car transfers. Short Term Goal (STG) pt will be able to lift 1 LE without UE assistance at a time for car transfers. STG Duration 6 weeks [facility]cf Goal (LTG) pt will be able to lift bilateral LE without UE assistance for car transfers. LTG Duration 12 weeks walking Impairment pt completes 177 ft on 2 MWT with FWW Short Term Goal (STG) pt will be able to complete 200 ft on 2MWT with FWW/ SPC to show improved overall endurance. STG Duration 6 weeks [facility]cf Goal (LTG) pt will be able to complete a full 6 MWT with distance over 500ft with FWW/ SPC to show improved overall endurance. LTG Duration 12 weeks LEFS Impairment pt scores 17 on LEFS Short Term Goal (STG) pt will show improved mobility and strength by being able to score >25 on LEFS STG Duration 6 weeks Chcf Goal (LTG) pt will show improved mobility and strength by being able to score >30 on LEFS LTG Duration 12 weeks Assessment Summary Assessment Nahun is a 80 yo male here for therapy to address his chemo induced peripheral neuropathy, cancer induced fatigue, decreased balance, difficulty in walking and during car transfers. Pt is present with his today and he uses a FWW for mobility but stated he uses SPC most of the time. Pt overall has very limited endurance but suprisingly he completed 177ft with FWW during 2MWT, 5x STS= 12 secs and 9 times STS in 30 secs. Pt did get fatigue and SOB easily. He also possibly has hip flexors strain/ tendonopathy d/t inactivity and sedentary lifestyle which causes him difficulty during bed and car transfers. I believe pt will benefit from skilled therapy to strengthen his hip flexors, along with gait & balance training and overall endurance training to maximize his functional mobility and strength. Physical Therapy Plan Frequency and Duration Frequency of Treatment 2x/Week Duration of Treatment 12 weeks Plan of Care Start Date 10/14/20 Plan of Care End Date 01/12/21 Therapeutic Interventions Therapeutic Interventions Aquatic Therapy,Balance Training,Gait Training,Home Exercise Program,Manual Therapy,Neuromuscular Re- education,Orthotic/Prosthetic Management,Patient/Caregiver Education,Self-Care/Home Management,Soft Tissue Mobilization,Taping, Therapeutic Activities, Therapeutic Exercises Modalities Cold Pack/Ice Massage,Hot Packs,Traction- Mechanical Next Visit Focus/Plan Next Note Type Treatment Note Next Visit Plan hip flexor stretch STM at hip add, quad, hip flexors calf raises STS walk with SPC/ FWW
--- NOTE | 2020-10-16 16:21 | PT.OTN ---
Current Diagnoses Hereditary and idiopathic neuropathy, unspecified (10/16/20) Other lack of coordination (10/16/20) Weakness (10/16/20) Physical Therapy Treatment Note PT-OP-A Visit Information Start: 10/14/20 16:59 Freq: Status: Active Protocol: Document 10/16/20 14:33 HH (Rec: 10/16/20 16:21 HH [id number]) Out-Patient Physical Therapy Visit Information Visit Information Visit Type Treatment Note Visit Start Time 14:32 Visit Stop Time 15:15 Total Visit Minutes 43 Visit Number 05/29 Number of LARGE ANIMAL HUSBANDRY TECHNICIAN Visits 0 PT-OP-B Current Condition Start: 10/14/20 16:59 Freq: Status: Active Protocol: Document 10/14/20 17:00 HH (Rec: 10/14/20 17:41 HH [email or web address]) Current Condition History of Current Condition Onset Date 2017 Current Complaints difficulty in walking, balance and car transfers, History of Current Condition Nahun is a 80 yo male here with his for therapy today. 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 He had chemo and radiation to the lung in 2018. Pt's overall mobility, strength and balance have gone down since. He hasnt been able to return to sailing which is what he loves d/t poor balance and enduranec. He also has symptoms of cancer related fatigue which limits his walking endurance up to 30-50 ft with SPC/ FWW. Pt prefers to use SPC d/t L shoulder and hand soreness. However, pt's has to CGA with gait belt for pt's all mobility d/t his poor balance. Pt also has been complaining difficulty lifting his legs into the car who has significant pain at his groin and anterior hip. Pt is pretty much very sedentary nowadays as his stated. No falls since her PT in 2019. Current Functional Impairments (Reported) Functional Limitations- ADL's min STRIPER MACHINE from supine to sit CGA for sit to supine Functional Limitations- Mobility/Gait amb 30-50 ft with FWW/SPC at most before a sitting break CGA with gait belt at all times. difficulty lifting his LEs for car transfer. Functional Limitations- Recreation/ unable to sail d/t poor Hobbies balance and endurance PT-OP-C Subjective Start: 10/14/20 16:59 Freq: Status: Active Protocol: Document 10/14/20 17:00 HH (Rec: 10/14/20 17:41 [email or web address]) Patient Questionnaires Lower Extremity Functional Scale LEFS Score 17 LEFS Impairment 60 to 79% Impaired (Score 17- 31) PT-OP-E Functional Tests Start: 10/14/20 16:59 Freq: Status: Active Protocol: Document 10/14/20 17:00 HH (Rec: 10/14/20 17:41 [email or web address]) Functional Tests 2 Minute Walk Test Distance 177 Device Used FWW Comments no break taken but pt requested to sit at the end 30 Second Sit to Stand Test Score 9 times (21 inch table) Comments with UE on FWW to push off. Five Times Sit to Stand Test Score 12s (21 inch table) Comments with UE on FWW to push off PT-OP-F Manual Assessment Start: 10/14/20 16:59 Freq: Status: Active Protocol: Document 10/14/20 17:00 HH (Rec: 10/14/20 17:41 [email or web address]) Manual Assessments Soft Tissue Assessment Soft Tissue Mobility Assessment significant hypertonicity at bilateral hip flexors and hip adductors. PT-OP-G Mobility & Gait Start: 10/14/20 16:59 Freq: Status: Active Protocol: Document 10/14/20 17:00 HH (Rec: 10/14/20 17:41 [email or web address]) OP Mobility Evaluation Bed Mobility Supine to and from Sit supine to sit with STRIPER MACHINE from sit to supine with CGA OP Gait Assessment Gait Deviations General Gait Pattern Decreased Stride Length, Decreased Feet Clearance, Flexed Trunk Factors Limiting Gait Function Factors Limiting Gait Function Decreased Activity Tolerance, Decreased Strength,Limited Range of Motion,Pain,Poor Balance,Poor Safety Awareness Comments Gait Comments pt tends to get fatigue and SOB easily Stair Climbing Evaluation Devices Stair Climbing Assistive Devices Left Railing,Right Railing Technique/Endurance Stair Climbing Direction Ascend and Descend Stair Climbing Technique Step to Step PT-OP-K Range of Motion Start: 10/14/20 16:59 Freq: Status: Active Protocol: Document 10/14/20 17:00 HH (Rec: 10/14/20 17:41 HH [email or web address]) Hip Goniometric Range of Motion Hip Left Active Hip ROM WFL No Straight Leg Raise 45 Comments SLR with significant weakness Right Active Hip ROM WFL No Straight Leg Raise 50 Comments SLR with significant weakness PT-OP-M Strength Start: 10/14/20 16:59 Freq: Status: Active Protocol: Document 10/14/20 17:00 HH (Rec: 10/14/20 17:41 [email or web address]) Hip Strength Hip Manual Muscle Testing Right Flexion (L2) 3 Fair Extension (S1) 4- Good- Abduction 3+ Fair+ Adduction 3+ Fair+ Left Flexion (L2) 3 Fair Extension (S1) 4- Good- Abduction 3+ Fair+ Adduction 3+ Fair+ Knee Strength Knee Manual Muscle Testing Right Flexion (S2) 4 Good Extension (L3) 4- Good- Left Flexion (S2) 4 Good Extension (L3) 4- Good- Comments pain with knee extension Ankle/Foot Strength Ankle and Foot Manual Muscle Testing Right Dorsiflexion (L4) 4+ Good+ Plantarflexion (S1) 4+ Good+ Left Dorsiflexion (L4) 4+ Good+ Plantarflexion (S1) 4+ Good+ PT-OP-Q Treatments Start: 10/14/20 16:59 Freq: Status: Active Protocol: Document 10/16/20 14:33 HH (Rec: 10/16/20 16:21 [id number]) Cardio Equipment Recumbent Stepper (Sci-Fit) Duration (Minutes) 5 Resistance level 2 Other slight pain at anterior hip Recumbent Bicycle Other unable since pt's feet slipped off, significant pain at bilteral hip Therapeutic Exercises Supine Exercises rolling pin Supine Exercise Name quad and hip flexors Side bilateral Reps/Minutes 4 mins meli stretch Side bilateral Reps/Minutes 15 s x 5 Comments for HEP Standing Exercises heel raises Standing Exercise Name HEP Side bilateral Equipment Used rail Reps/Minutes x10 Comments cued slow pacing mini squat Standing Exercise Name HEP Reps/Minutes 2x5 Manual Therapy Treatment Soft Tissue Mobilization hip flexors Mobilization Type Myofascial Release,Sustained Pressure,Trigger Point Release Intensity/Depth Moderate Body Position Supine Comments significant tonicity noted. PT-OP-T Assessment and Plan Start: 10/14/20 16:59 Freq: Status: Active Protocol: Document 10/16/20 14:33 HH (Rec: 10/16/20 16:21 [id number]) Physical Therapy Assessment Goals LE strength Impairment pt completes 9 x STS with FWW in 30 secs Short Term Goal (STG) pt will shows improved LE to be able to complete 10x STS without using FWW in 30 secs. STG Duration 6 weeks Senior Living Goal (LTG) pt will shows improved LE to be able to complete 12x STS without using FWW in 30 secs. LTG Duration 12 weeks car transfer Impairment pt is uable to lift BLE independently for car transfers. Short Term Goal (STG) pt will be able to lift 1 LE without UE assistance at a time for car transfers. STG Duration 6 weeks Senior Living Goal (LTG) pt will be able to lift bilateral LE without UE assistance for car transfers. LTG Duration 12 weeks walking Impairment pt completes 177 ft on 2 MWT with FWW Short Term Goal (STG) pt will be able to complete 200 ft on 2MWT with FWW/ SPC to show improved overall endurance. STG Duration 6 weeks Spiritual Counselor Goal (LTG) pt will be able to complete a full 6 MWT with distance over 500ft with FWW/ SPC to show improved overall endurance. LTG Duration 12 weeks LEFS Impairment pt scores 17 on LEFS Short Term Goal (STG) pt will show improved mobility and strength by being able to score >25 on LEFS STG Duration 6 weeks Senior Living Goal (LTG) pt will show improved mobility and strength by being able to score >30 on LEFS LTG Duration 12 weeks Assessment Summary Assessment initiated manual therapy today at his hip flexors and he tiffany well. However, pt has significant hip pain doing recumbent bike but okay with stepper. He also gets fatigue and frustrated very easily. Spent time educating pt the importance of active lifestyle for swelling management. Physical Therapy Plan Frequency and Duration Frequency of Treatment 2x/Week Duration of Treatment 12 weeks Plan of Care Start Date 10/14/20 Plan of Care End Date 01/12/21 Therapeutic Interventions Therapeutic Interventions Aquatic Therapy,Balance Training,Gait Training,Home Exercise Program,Manual Therapy,Neuromuscular Re- education,Orthotic/Prosthetic Management,Patient/Caregiver Education,Self-Care/Home Management,Soft Tissue Mobilization,Taping, Therapeutic Activities, Therapeutic Exercises Modalities Cold Pack/Ice Massage,Hot Packs,Traction- Mechanical Next Visit Focus/Plan Next Note Type Treatment Note Next Visit Plan hip flexor stretch STM at hip add, quad, hip flexors calf raises STS walk with SPC/ FWW
--- NOTE | 2020-11-04 17:00 | PT.OTN ---
Current Diagnoses Hereditary and idiopathic neuropathy, unspecified (11/04/20) Other lack of coordination (11/04/20) Weakness (11/04/20) Physical Therapy Treatment Note PT-OP-A Visit Information Start: 10/14/20 16:59 Freq: Status: Active Protocol: Document 11/04/20 16:38 AW (Rec: 11/04/20 16:49 AW [id number]) Out-Patient Physical Therapy Visit Information Visit Information Visit Type Treatment Note Visit Start Time 16:00 Visit Stop Time 16:38 Total Visit Minutes 38 Visit Number 06/26 Number of ENDOSCOPY SUPPORT SPECIALIST Visits 0 Evaluation Information Evaluation Date 10/14/20 PT-OP-B Current Condition Start: 10/14/20 16:59 Freq: Status: Active Protocol: Document 10/14/20 17:00 HH (Rec: 10/14/20 17:41 HH [email or web address]) Current Condition History of Current Condition Onset Date 2017 Current Complaints difficulty in walking, balance and car transfers, History of Current Condition Nahun is a 80 yo male here with his for therapy today. 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 He had chemo and radiation to the lung in 2018. Pt's overall mobility, strength and balance have gone down since. He hasnt been able to return to sailing which is what he loves d/t poor balance and enduranec. He also has symptoms of cancer related fatigue which limits his walking endurance up to 30-50 ft with SPC/ FWW. Pt prefers to use SPC d/t L shoulder and hand soreness. However, pt's has to CGA with gait belt for pt's all mobility d/t his poor balance. Pt also has been complaining difficulty lifting his legs into the car who has significant pain at his groin and anterior hip. Pt is pretty much very sedentary nowadays as his stated. No falls since her PT in 2019. Current Functional Impairments (Reported) Functional Limitations- ADL's min CUTTER DOWN from supine to sit CGA for sit to supine Functional Limitations- Mobility/Gait amb 30-50 ft with FWW/SPC at most before a sitting break CGA with gait belt at all times. difficulty lifting his LEs for car transfer. Functional Limitations- Recreation/ unable to sail d/t poor Hobbies balance and endurance PT-OP-C Subjective Start: 10/14/20 16:59 Freq: Status: Active Protocol: Document 11/04/20 16:38 AW (Rec: 11/04/20 16:49 AW [id number]) OP-PT Subjective Patient Comments Patient Comments Pt went to ED recently with atypical chest pain. Cardiac etiology was ruled out and pt has not had the same symptoms since that date. PT-OP-E Functional Tests Start: 10/14/20 16:59 Freq: Status: Active Protocol: Document 10/14/20 17:00 HH (Rec: 10/14/20 17:41 HH [email or web address]) Functional Tests 2 Minute Walk Test Distance 177 Device Used FWW Comments no break taken but pt requested to sit at the end 30 Second Sit to Stand Test Score 9 times (21 inch table) Comments with UE on FWW to push off. Five Times Sit to Stand Test Score 12s (21 inch table) Comments with UE on FWW to push off PT-OP-F Manual Assessment Start: 10/14/20 16:59 Freq: Status: Active Protocol: Document 10/14/20 17:00 HH (Rec: 10/14/20 17:41 HH [email or web address]) Manual Assessments Soft Tissue Assessment Soft Tissue Mobility Assessment significant hypertonicity at bilateral hip flexors and hip adductors. PT-OP-G Mobility & Gait Start: 10/14/20 16:59 Freq: Status: Active Protocol: Document 10/14/20 17:00 HH (Rec: 10/14/20 17:41 HH [email or web address]) OP Mobility Evaluation Bed Mobility Supine to and from Sit supine to sit with CUTTER DOWN from sit to supine with CGA OP Gait Assessment Gait Deviations General Gait Pattern Decreased Stride Length, Decreased Feet Clearance, Flexed Trunk Factors Limiting Gait Function Factors Limiting Gait Function Decreased Activity Tolerance, Decreased Strength,Limited Range of Motion,Pain,Poor Balance,Poor Safety Awareness Comments Gait Comments pt tends to get fatigue and SOB easily Stair Climbing Evaluation Devices Stair Climbing Assistive Devices Left Railing,Right Railing Technique/Endurance Stair Climbing Direction Ascend and Descend Stair Climbing Technique Step to Step PT-OP-K Range of Motion Start: 10/14/20 16:59 Freq: Status: Active Protocol: Document 10/14/20 17:00 HH (Rec: 10/14/20 17:41 HH [email or web address]) Hip Goniometric Range of Motion Hip Left Active Hip ROM WFL No Straight Leg Raise 45 Comments SLR with significant weakness Right Active Hip ROM WFL No Straight Leg Raise 50 Comments SLR with significant weakness PT-OP-M Strength Start: 10/14/20 16:59 Freq: Status: Active Protocol: Document 10/14/20 17:00 HH (Rec: 10/14/20 17:41 HH [email or web address]) Hip Strength Hip Manual Muscle Testing Right Flexion (L2) 3 Fair Extension (S1) 4- Good- Abduction 3+ Fair+ Adduction 3+ Fair+ Left Flexion (L2) 3 Fair Extension (S1) 4- Good- Abduction 3+ Fair+ Adduction 3+ Fair+ Knee Strength Knee Manual Muscle Testing Right Flexion (S2) 4 Good Extension (L3) 4- Good- Left Flexion (S2) 4 Good Extension (L3) 4- Good- Comments pain with knee extension Ankle/Foot Strength Ankle and Foot Manual Muscle Testing Right Dorsiflexion (L4) 4+ Good+ Plantarflexion (S1) 4+ Good+ Left Dorsiflexion (L4) 4+ Good+ Plantarflexion (S1) 4+ Good+ PT-OP-Q Treatments Start: 10/14/20 16:59 Freq: Status: Active Protocol: Document 11/04/20 16:38 AW (Rec: 11/04/20 16:49 AW [id number]) Cardio Equipment Recumbent Stepper (Sci-Fit) Duration (Minutes) 7 Resistance level 2 Other pt denies pain but is easy to fatigue Therapeutic Exercises Standing Exercises hip abduction Standing Exercise Name hip abduction Side bilateral Reps/Minutes x 10 BLE Comments AROM march in place Standing Exercise Name march in place Side bilateral Equipment Used FWW for support Reps/Minutes 2x BLE heel raises Standing Exercise Name HEP Side bilateral Equipment Used FWW for support Reps/Minutes x10 Comments cued slow pacing mini squat Standing Exercise Name sit to stand Reps/Minutes 2 x 5 Neuro Re-Education Treatment Balance Activities WBOS,NBOS, stagger corner Details FWW in reach for prn support Surface carpet Reps/Duration 8 min Comments CGA to min A 1. WBOS, NBOS 2. head turns, vertical each foot position 3. Added EC Discussed adding to HEP with to assist using gait belt . PT-OP-T Assessment and Plan Start: 10/14/20 16:59 Freq: Status: Active Protocol: Document 11/04/20 16:38 AW (Rec: 11/04/20 17:00 AW [id number]) Physical Therapy Assessment Goals LE strength Impairment pt completes 9 x STS with FWW in 30 secs Short Term Goal (STG) pt will shows improved LE to be able to complete 10x STS without using FWW in 30 secs. STG Duration 6 weeks Fdc Goal (LTG) pt will shows improved LE to be able to complete 12x STS without using FWW in 30 secs. LTG Duration 12 weeks car transfer Impairment pt is uable to lift BLE independently for car transfers. Short Term Goal (STG) pt will be able to lift 1 LE without UE assistance at a time for car transfers. STG Duration 6 weeks Fdc Goal (LTG) pt will be able to lift bilateral LE without UE assistance for car transfers. LTG Duration 12 weeks walking Impairment pt completes 177 ft on 2 MWT with FWW Short Term Goal (STG) pt will be able to complete 200 ft on 2MWT with FWW/ SPC to show improved overall endurance. STG Duration 6 weeks Brass Reclaimer Goal (LTG) pt will be able to complete a full 6 MWT with distance over 500ft with FWW/ SPC to show improved overall endurance. LTG Duration 12 weeks LEFS Impairment pt scores 17 on LEFS Short Term Goal (STG) pt will show improved mobility and strength by being able to score >25 on LEFS STG Duration 6 weeks Fdc Goal (LTG) pt will show improved mobility and strength by being able to score >30 on LEFS LTG Duration 12 weeks Assessment Summary Assessment Pt arrived to PT today after a doctor's appointment and was extremely fatigued from the start. Worked on standing endurance, strength, and balance today which pt was able to tolerate. He was not able to gait train today due to fatigue. Physical Therapy Plan Frequency and Duration Frequency of Treatment 2x/Week Duration of Treatment 12 weeks Plan of Care Start Date 10/14/20 Plan of Care End Date 01/12/21 Therapeutic Interventions Therapeutic Interventions Aquatic Therapy,Balance Training,Gait Training,Home Exercise Program,Manual Therapy,Neuromuscular Re- education,Orthotic/Prosthetic Management,Patient/Caregiver Education,Self-Care/Home Management,Soft Tissue Mobilization,Taping, Therapeutic Activities, Therapeutic Exercises Modalities Cold Pack/Ice Massage,Hot Packs,Traction- Mechanical
--- NOTE | 2020-11-09 14:30 | PT.OTN ---
Current Diagnoses Hereditary and idiopathic neuropathy, unspecified (11/09/20) Other lack of coordination (11/09/20) Weakness (11/09/20) Physical Therapy Treatment Note PT-OP-A Visit Information Start: 10/14/20 16:59 Freq: Status: Active Protocol: Document 11/09/20 13:51 SP (Rec: 11/09/20 16:07 SP [id number]) Out-Patient Physical Therapy Visit Information Visit Information Visit Type Treatment Note Visit Note Pt 6 min late for appt. attended tx, provided verbal communication assist as needed. Vitals taken during tx: post scfit: RUE BP 130/78, HR 63 post supine>sitting @ EO table RUE: BP 113/70 HR 68 Next tx take orthos for safety awareness. Visit Start Time 13:51 Visit Stop Time 14:30 Total Visit Minutes 39 Visit Number 07/27 Number of FLASHER ADJUSTER Visits 1 Evaluation Information Evaluation Date 10/14/20 PT-OP-B Current Condition Start: 10/14/20 16:59 Freq: Status: Active Protocol: Document 10/14/20 17:00 HH (Rec: 10/14/20 17:41 HH [email or web address]) Current Condition History of Current Condition Onset Date 2017 Current Complaints difficulty in walking, balance and car transfers, History of Current Condition Nahun is a 80 yo male here with his for therapy today. 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 He had chemo and radiation to the lung in 2018. Pt's overall mobility, strength and balance have gone down since. He hasnt been able to return to sailing which is what he loves d/t poor balance and enduranec. He also has symptoms of cancer related fatigue which limits his walking endurance up to 30-50 ft with SPC/ FWW. Pt prefers to use SPC d/t L shoulder and hand soreness. However, pt's has to CGA with gait belt for pt's all mobility d/t his poor balance. Pt also has been complaining difficulty lifting his legs into the car who has significant pain at his groin and anterior hip. Pt is pretty much very sedentary nowadays as his stated. No falls since her PT in 2019. Current Functional Impairments (Reported) Functional Limitations- ADL's min PSYCHOLOGIST SOCIAL from supine to sit CGA for sit to supine Functional Limitations- Mobility/Gait amb 30-50 ft with FWW/SPC at most before a sitting break CGA with gait belt at all times. difficulty lifting his LEs for car transfer. Functional Limitations- Recreation/ unable to sail d/t poor Hobbies balance and endurance PT-OP-C Subjective Start: 10/14/20 16:59 Freq: Status: Active Protocol: Document 11/09/20 13:51 SP (Rec: 11/09/20 16:07 SP [id number]) OP-PT Subjective Patient Comments Patient Comments Pt stated I'm crabby today, not doing as well walking, having front hip pain, R>L LE . stated he's not moving as well today, legs not as strong. Hasn't been as compliant with exercises but does doing walking at store of what can. PT-OP-E Functional Tests Start: 10/14/20 16:59 Freq: Status: Active Protocol: Document 10/14/20 17:00 HH (Rec: 10/14/20 17:41 HH [email or web address]) Functional Tests 2 Minute Walk Test Distance 177 Device Used FWW Comments no break taken but pt requested to sit at the end 30 Second Sit to Stand Test Score 9 times (21 inch table) Comments with UE on FWW to push off. Five Times Sit to Stand Test Score 12s (21 inch table) Comments with UE on FWW to push off PT-OP-F Manual Assessment Start: 10/14/20 16:59 Freq: Status: Active Protocol: Document 10/14/20 17:00 HH (Rec: 10/14/20 17:41 HH [email or web address]) Manual Assessments Soft Tissue Assessment Soft Tissue Mobility Assessment significant hypertonicity at bilateral hip flexors and hip adductors. PT-OP-G Mobility & Gait Start: 10/14/20 16:59 Freq: Status: Active Protocol: Document 10/14/20 17:00 HH (Rec: 10/14/20 17:41 HH [email or web address]) OP Mobility Evaluation Bed Mobility Supine to and from Sit supine to sit with PSYCHOLOGIST SOCIAL from sit to supine with CGA OP Gait Assessment Gait Deviations General Gait Pattern Decreased Stride Length, Decreased Feet Clearance, Flexed Trunk Factors Limiting Gait Function Factors Limiting Gait Function Decreased Activity Tolerance, Decreased Strength,Limited Range of Motion,Pain,Poor Balance,Poor Safety Awareness Comments Gait Comments pt tends to get fatigue and SOB easily Stair Climbing Evaluation Devices Stair Climbing Assistive Devices Left Railing,Right Railing Technique/Endurance Stair Climbing Direction Ascend and Descend Stair Climbing Technique Step to Step PT-OP-K Range of Motion Start: 10/14/20 16:59 Freq: Status: Active Protocol: Document 10/14/20 17:00 HH (Rec: 10/14/20 17:41 HH [email or web address]) Hip Goniometric Range of Motion Hip Left Active Hip ROM WFL No Straight Leg Raise 45 Comments SLR with significant weakness Right Active Hip ROM WFL No Straight Leg Raise 50 Comments SLR with significant weakness PT-OP-M Strength Start: 10/14/20 16:59 Freq: Status: Active Protocol: Document 10/14/20 17:00 HH (Rec: 10/14/20 17:41 HH [email or web address]) Hip Strength Hip Manual Muscle Testing Right Flexion (L2) 3 Fair Extension (S1) 4- Good- Abduction 3+ Fair+ Adduction 3+ Fair+ Left Flexion (L2) 3 Fair Extension (S1) 4- Good- Abduction 3+ Fair+ Adduction 3+ Fair+ Knee Strength Knee Manual Muscle Testing Right Flexion (S2) 4 Good Extension (L3) 4- Good- Left Flexion (S2) 4 Good Extension (L3) 4- Good- Comments pain with knee extension Ankle/Foot Strength Ankle and Foot Manual Muscle Testing Right Dorsiflexion (L4) 4+ Good+ Plantarflexion (S1) 4+ Good+ Left Dorsiflexion (L4) 4+ Good+ Plantarflexion (S1) 4+ Good+ PT-OP-Q Treatments Start: 10/14/20 16:59 Freq: Status: Active Protocol: Document 11/09/20 13:51 SP (Rec: 11/09/20 16:07 SP [id number]) Cardio Equipment Recumbent Stepper (Sci-Fit) Duration (Minutes) 3 Resistance L1 Other I am tired, was when came in . Therapeutic Exercises Supine Exercises BKFO Supine Exercise Name hip ER Side bilateral Resistance AROM Reps/Minutes x7 reps Comments painfree range, tolerated well rolling pin Supine Exercise Name quad and hip flexors Side bilateral Comments discussed is performing at home via assist- good response philippe stretch Supine Exercise Name unable let leg off table bc pain, modified to long leg lengthening straight Side bilateral Equipment Used opposite LE bent foot on table Reps/Minutes 10 sec x 3 each LE Comments good feedback response painfree Standing Exercises hip ext Standing Exercise Name added to HEP Side bilateral Equipment Used FWW for support Reps/Minutes x10 Comments cued tall posture not kick to far, painfree range heel raises Standing Exercise Name HEP review Side bilateral Equipment Used FWW for support Reps/Minutes x10 Comments cued slow pacing Gait Training Gait Activity gait level surface Device Used FWW Level of Assistance CGA Surface level Distance/Duration 100x2 Treatment Focus increase stride and foot clearance R>L Comments cued body closer to FWW w/ taller posture, foot clearance . Improved without cues post manual and supine stretching/ AROM Manual Therapy Treatment Soft Tissue Mobilization hip flexors Body Location R Mobilization Type Myofascial Release,Sustained Pressure,Trigger Point Release Intensity/Depth Superficial Body Position Hooklying Comments significant tonicity noted. Self-Care/Home Management Treatment Education Patient Education Home Exercise Program,Pain Management Caregiver Education Pt and education modify to long leg lengtheners for anterior hip stretch for ease of hip ext and taller posture walking with verbal understanding. Suggested importance of performing exercises and walking around at home to improve ROM to hips and decrease pain. With verbalized understanding. PT-OP-T Assessment and Plan Start: 10/14/20 16:59 Freq: Status: Active Protocol: Document 11/09/20 13:51 SP (Rec: 11/09/20 16:07 SP [id number]) Physical Therapy Assessment Goals LE strength Impairment pt completes 9 x STS with FWW in 30 secs Short Term Goal (STG) pt will shows improved LE to be able to complete 10x STS without using FWW in 30 secs. STG Duration 6 weeks Intermediate Goal (LTG) pt will shows improved LE to be able to complete 12x STS without using FWW in 30 secs. LTG Duration 12 weeks car transfer Impairment pt is uable to lift BLE independently for car transfers. Short Term Goal (STG) pt will be able to lift 1 LE without UE assistance at a time for car transfers. STG Duration 6 weeks Macadam Raker Goal (LTG) pt will be able to lift bilateral LE without UE assistance for car transfers. LTG Duration 12 weeks walking Impairment pt completes 177 ft on 2 MWT with FWW Short Term Goal (STG) pt will be able to complete 200 ft on 2MWT with FWW/ SPC to show improved overall endurance. STG Duration 6 weeks Intermediate Goal (LTG) pt will be able to complete a full 6 MWT with distance over 500ft with FWW/ SPC to show improved overall endurance. LTG Duration 12 weeks LEFS Impairment pt scores 17 on LEFS Short Term Goal (STG) pt will show improved mobility and strength by being able to score >25 on LEFS STG Duration 6 weeks Macadam Raker Goal (LTG) pt will show improved mobility and strength by being able to score >30 on LEFS LTG Duration 12 weeks Assessment Summary Assessment Pt very lethargic this tx and increased R hip flexor pain. Pt responded well to manual, AROM and stretching in supine. Modifed Philippe stretch to long leg lengtheners with good response painfree. Pt's posture, stride and foot clearance improved end tx leaving. Physical Therapy Plan Frequency and Duration Frequency of Treatment 2x/Week Duration of Treatment 12 weeks Plan of Care Start Date 10/14/20 Plan of Care End Date 01/12/21 Therapeutic Interventions Therapeutic Interventions Aquatic Therapy,Balance Training,Gait Training,Home Exercise Program,Manual Therapy,Neuromuscular Re- education,Orthotic/Prosthetic Management,Patient/Caregiver Education,Self-Care/Home Management,Soft Tissue Mobilization,Taping, Therapeutic Activities, Therapeutic Exercises Modalities Cold Pack/Ice Massage,Hot Packs,Traction- Mechanical Next Visit Focus/Plan Next Note Type Treatment Note Next Visit Plan Assess response to manual, stretching, ROM to R hip, gait and standing HEP review. Continue POC: hip flexor stretch STM at hip add, quad, hip flexors calf raises STS walk with SPC/ FWW
--- NOTE | 2020-11-12 18:35 | PT-OP ANOTE ---
PT/ DATABASE ADMINISTRATION MANAGER discussed calling pt and getting feedback on reasoning for cancelling rest of PT appts. DATABASE ADMINISTRATION MANAGER called pt's next of Kin listed, friend Vanessa Alonso and was told pt wants to cancel all remaining appts and DC PT at this time. Has been very tired lately and it's to much to come in to therapy. Is being followed by PCP and has upcoming cardiology and oncology appts and when starts to feel better will get a new referral and come back. DATABASE ADMINISTRATION MANAGER suggested if tolerated decrease to 1x/wk or can ask if can get orders for HHPT. Vanessa asked patient and Nahun said no, not right now, it's to much. DATABASE ADMINISTRATION MANAGER stated understood and let physician know if and when HHPT or outpt would be beneficial to progress and improved mobility. PT Pebbles to DC pt.
--- NOTE | 2020-11-23 08:46 | PT.OPDS ---
Current Diagnoses Hereditary and idiopathic neuropathy, unspecified (11/09/20) Other lack of coordination (11/09/20) Weakness (11/09/20) Visit Care Team Role Provider Type Gurdeep Cameron MD Attending Provider Physician Primary Care Provider Referring Provider Specialty: Internal Medicine Address: [address] [place] [address], [id number] Email: [email or web address] Visit Number Visit Number 07/27 Discharge Summary PT-OP-T Assessment and Plan Start: 10/14/20 16:59 Freq: Status: Active Protocol: Document 11/23/20 08:46 HH (Rec: 11/23/20 08:46 HH [email or web address]) Physical Therapy Plan Discharge Physical Therapy Discharge Reasons Change in Medical Status Discharge Comments Per 2ND GRADE TEACHER Nathalie note PT/ 2ND GRADE TEACHER discussed calling pt and getting feedback on reasoning for cancelling rest of PT appts. 2ND GRADE TEACHER called pt's next of Kin listed, friend Vanessa Alonso and was told pt wants to cancel all remaining appts and DC PT at this time. Has been very tired lately and it' s to much to come in to therapy. Is being followed by PCP and has upcoming cardiology and oncology appts and when starts to feel better will get a new referral and come back. 2ND GRADE TEACHER suggested if tolerated decrease to 1x/wk or can ask if can get orders for HHPT. Vanessa asked patient and Nahun said no, not right now, it's to much. 2ND GRADE TEACHER stated understood and let physician know if and when HHPT or outpt would be beneficial to progress and improved mobility. DC pt from PT today.
== END 2020-11-23 10:40 | disposition home or self-care (01) ==
LOC: PHYS 13:45
PROVIDERS: PCP Internal Medicine; Referring Provider Internal Medicine; Visit Provider Internal Medicine
DX: R27.8 Other lack of coordination (principal); G60.9 Hereditary and idiopathic neuropathy, unspecified; R53.1 Weakness
CPT/HCPCS: 97110; 97112; 97140; 97163; 97535

== ENCOUNTER 2021-01-19 11:47 | Emergency (ER) | payer MEDICARE, OTHER, SELFPAY ==
[2021-01-19 11:50] VITALS: BP 136/64; PULSE 58; RESP 16; TEMP 36.6; O2SAT 97
--- NOTE | 2021-01-19 12:10 | ED.EXTPRO ---
HPI - Extremity Problem <Raj Zarate PA-C - Last Filed: 01/24/21 20:51> General Chief complaint: Extremity Problem,Nontraumatic Stated complaint: something in LT foot Time Seen by Provider: 01/19/21 11:50 Source: patient Mode of arrival: Wheelchair History of Present Illness HPI Narrative: 81-year-old male with past medical history prostate cancer with metastasis to bone, hyperglycemia, GI bleeds, CAD, rheumatoid arthritis, TIA, obstructive sleep apnea, small-cell lung cancer presents to the ED with 1 week of left foot pain. Patient endorses that he saw some bleeding from his left foot, etiology unknown 1 week ago. Patient denies trauma. Patient states that since then, his left foot has been painful, particularly at the base of the 5th toe. Patient states pain is worse on weight-bearing and walking. Patient denies numbness, tingling, weakness. Patient denies fever, chills, shortness of breath, chest pain, cough, nausea, vomiting, abdominal pain, dysuria, lightheadedness, dizziness, syncope. Related Data Home Medications Medication Instructions Recorded Confirmed atorvastatin 40 mg tablet (Lipitor) 40 mg PO BEDTIME #0 03/21/17 09/14/20 Respironics Dreamstation BIPAP #1 ea 08/29/18 04/29/20 furosemide 20 mg tablet 20 mg PO DAILY PRN 01/22/19 09/14/20 losartan 50 mg tablet 50 mg PO DAILY 01/22/19 09/14/20 carvedilol 25 mg tablet 25 mg PO BID 05/08/19 09/14/20 minoxidil 10 mg tablet 5 mg PO DAILY 05/08/19 09/14/20 Previous Rx's Medication Instructions Recorded rivaroxaban 20 mg tablet (Xarelto) 20 mg PO DAILY #90 tab 02/07/18 potassium citrate 10 mEq (1,080 10 meq PO TID #270 tab 04/29/20 mg) tablet,extended release tamsulosin 0.4 mg capsule (Flomax) 0.4 mg PO BEDTIME #90 cap 09/29/20 Allergies Allergy/AdvReac Type Severity Reaction Status Date / Time niacin [NIACIN] AdvReac Severe Hypotension Verified 05/20/20 12:38 amlodipine [AMLODIPINE] AdvReac Unknown Verified 05/20/20 12:38 chlorthalidone AdvReac Unknown Elevated Verified 05/20/20 12:38 Creatinine gemfibrozil [GEMFIBROZIL] AdvReac Unknown Verified 05/20/20 12:38 hydrochlorothiazide AdvReac Unknown Verified 05/20/20 12:38 [HYDROCHLOROTHIAZIDE] hydroxychloroquine AdvReac Unknown Diarrhea Verified 05/20/20 12:38 [From Plaquenil] lisinopril [LISINOPRIL] AdvReac Unknown Diarrhea Verified 05/20/20 12:38 Review of Systems <Raj Zarate PA-C - Last Filed: 01/24/21 20:51> Constitutional Constitutional: Denies chills, Denies fatigue, Denies fever(s), Denies frequent falls, Denies lethargy and Denies weakness Eyes Eyes: Denies change in vision, Denies eye discharge, Denies irritation and Denies loss of vision ENT Ears, Nose, Mouth, and Throat: Denies change in voice, Denies dizziness, Denies neck pain, Denies sore throat and Denies throat swelling Cardiovascular Cardiovascular: Denies chest pain, Denies irregular heart rhythm, Denies lightheadedness, Denies palpitations, Denies dyspnea, Denies dyspnea on exertion and Denies orthopnea Respiratory Respiratory: Denies cough, Denies dyspnea, Denies dyspnea on exertion and Denies wheezing Gastrointestinal Gastrointestinal: Denies abdominal pain, Denies change in bowel habits, Denies diarrhea, Denies nausea and Denies vomiting Musculoskeletal Musculoskeletal: Denies neck pain and Denies numbness Comments: Left foot pain Integumentary/Breasts Skin/Breast: Denies pruritus, Denies erythema, Denies rash and Denies wounds Neurologic Neurologic: Denies behavioral changes, Denies confusion, Denies dizziness, Denies frequent falls, Denies loss of vision, Denies numbness and Denies weakness Psychiatric Psychiatric: Denies anxiety, Denies behavioral changes, Denies confusion, Denies depression, Denies homicidal ideation and Denies suicidal ideation Endocrine Endocrine: Denies fatigue, Denies flushing and Denies palpitations Hematologic/Lymphatic Hematologic/Lymphatic: Denies easy bruising Allergic/Immunologic Allergic/Immunologic: Denies urticaria, Denies throat swelling and Denies wheezing Patient History <Raj Zarate PA-C - Last Filed: 01/24/21 20:51> Medical History Coronary artery disease Depression Diabetes type 2, controlled Erectile dysfunction GERD (gastroesophageal reflux disease) History of nephrolithiasis History of nephrolithiasis History of nephrolithotomy with removal of calculi History of pulmonary embolism Hyperlipidemia Hypertension Kidney stone Leukopenia Lung cancer Metastatic malignant neoplasm to prostate Neuropathy Obstructive sleep apnea of adult Prostate cancer Prostate cancer metastatic to bone Renal insufficiency Rheumatoid arthritis RLS (restless legs syndrome) Small cell lung cancer Thrombocytopenia Thrombophlebitis of arm, left Urge incontinence Urinary calculi UTI (urinary tract infection) Surgical History H/O coronary angioplasty H/O umbilical hernia repair History of appendectomy History of cholecystectomy Hx of hernia repair Hx of lithotripsy Family History Father No problems noted. Mother No problems noted. Brother Hx of CABG Diabetes mellitus Coronary artery disease Social History marital status: unmarried,living together details: partner Vanessa Alonso, lives in [place] household members: significant other lives independently: No caregiver/support person: Yes Smoking Status: Current every day smoker alcohol intake: never Smoking Status: Current every day smoker alcohol intake frequency: holidays/special occasions only Substance Use Type: does not use Exam <Raj Zarate PA-C - Last Filed: 01/24/21 20:51> Initial Vital Signs Initial Vital Signs: Vital Signs Temperature 97.9 F 01/19/21 11:50 Pulse Rate 58 L 01/19/21 11:50 Respiratory Rate 16 01/19/21 11:50 Blood Pressure 136/64 01/19/21 11:50 Pulse Oximetry 97 01/19/21 11:50 Const General: cooperative HENMT Head: normocephalic and atraumatic Ears: external ears normal and TM's normal bilaterally Nose: external nose normal and No nasal discharge Face and sinus: sinuses nontender, face symmetric, no sinus tenderness and No dry mucous membranes Mouth: oral mucosae normal and moist mucous membranes Teeth and gingiva: dentition normal Throat: tonsils normal and uvula midline Eyes General: appearance normal, both eyes and all related structures Eyelids: eyelids normal Conjunctivae: conjunctivae normal Sclera: sclerae normal Pupils: PERRL EOM: EOM intact bilaterally Neck Neck: normal visual inspection, trachea midline, No lymphadenopathy, No midline deformity and No JVD Lymphatic: No lymphedema Chest Chest: normal inspection of the chest Resp Effort & Inspection: normal respiratory effort, able to speak in complete sentences, no respiratory distress and no use of accessory muscles Auscultation: clear to auscultation bilaterally, no rales, no rhonchi and no wheezes Cardio Rate: regular rate Rhythm: regular rhythm Heart Sounds: no click, no gallops, no murmurs and no rubs Pulses: normal peripheral pulses GI Inspection: non-distended Palpation: soft, no hepatosplenomegaly, No guarding, No pulsatile mass and No tender Auscultation: normal bowel sounds Back/Spine/Pelvis Back: No CVA tenderness Cervical Spine: cervical ROM normal and No pain with cervical ROM Thoracic/Lumbar Spine: thoracic and lumbar spine normal to inspection Skin General: no rashes or lesions noted, No jaundice and No petechiae Neuro General: patient alert, patient oriented x3, gait normal and no focal motor deficits Speech: speech normal Extrem General: full ROM, no clubbing, cyanosis or edema, no pedal edema and no calf tenderness Left lower extremity: knee Other: tenderness to palpation of left 5th metatarsal. skin intact. Range of motion intact. Neurovascularly intact. Psych Appearance: well kempt Mental Status: mental status grossly normal Attitude: cooperative Thought Content: normal and suicidality Judgment: judgment good <Giuseppe Brownlee DO - Last Filed: 01/26/21 07:06> Initial Vital Signs Initial Vital Signs: Vital Signs Temperature 97.9 F 01/19/21 11:50 Pulse Rate 58 L 01/19/21 11:50 Respiratory Rate 16 01/19/21 11:50 Blood Pressure 136/64 01/19/21 11:50 Pulse Oximetry 97 01/19/21 11:50 Course <Raj Zarate PA-C - Last Filed: 01/24/21 20:51> Course Course Narrative: L foot xray shows evidence of questionable nondisplaced fracture of the 3rd proximal phalangeal neck.?Will discharge Home with boot and instrumentation and controls designer follow-up. Orders Ordered: Discontinued Medications Sodium Chloride (Normal Saline 0.9%) 1,000 mls @ 1,000 mls/hr IV BOLUS ONE Stop: 01/19/21 13:06 Last Admin: 01/19/21 12:29 Dose: Not Given Documented by: MAIRA Ibuprofen (Ibuprofen 400 Mg Tablet) 600 mg PO NOW ONE Stop: 01/19/21 12:39 Last Admin: 01/19/21 13:54 Dose: Not Given Documented by: MAIRA Ketorolac Tromethamine (Ketorolac 30 Mg/Ml Vial) 15 mg IV NOW ONE Stop: 01/19/21 12:08 Last Admin: 01/19/21 12:29 Dose: Not Given Documented by: MAIRA Ondansetron HCl (Ondansetron 4 Mg/2 Ml Inj) 4 mg IV NOW ONE Stop: 01/19/21 12:08 Last Admin: 01/19/21 12:29 Dose: Not Given Documented by: MAIRA Vital Signs Vital signs: Vital Signs - 8 hr 01/19/21 11:50 Temperature 97.9 F Pulse Rate 58 L Respiratory Rate 16 Blood Pressure 136/64 Pulse Oximetry 97 <Giuseppe Brownlee DO - Last Filed: 01/26/21 07:06> Orders Ordered: Discontinued Medications Sodium Chloride (Normal Saline 0.9%) 1,000 mls @ 1,000 mls/hr IV BOLUS ONE Stop: 01/19/21 13:06 Last Admin: 01/19/21 12:29 Dose: Not Given Documented by: MAIRA Ibuprofen (Ibuprofen 400 Mg Tablet) 600 mg PO NOW ONE Stop: 01/19/21 12:39 Last Admin: 01/19/21 13:54 Dose: Not Given Documented by: MAIRA Ketorolac Tromethamine (Ketorolac 30 Mg/Ml Vial) 15 mg IV NOW ONE Stop: 01/19/21 12:08 Last Admin: 01/19/21 12:29 Dose: Not Given Documented by: MAIRA Ondansetron HCl (Ondansetron 4 Mg/2 Ml Inj) 4 mg IV NOW ONE Stop: 01/19/21 12:08 Last Admin: 01/19/21 12:29 Dose: Not Given Documented by: MAIRA Vital Signs Vital signs: Vital Signs - 8 hr 01/19/21 11:50 Temperature 97.9 F Pulse Rate 58 L Respiratory Rate 16 Blood Pressure 136/64 Pulse Oximetry 97 MDM - Extremity (Nontraumatic) <Raj Zarate PA-C - Last Filed: 01/24/21 20:51> Medical Records Attestation: I reviewed the patient's medical records. Lab Data Attestation: I reviewed the patient's lab results. Labs: Urine Dip Bedside Urine Glucose Negative Bedside Urine Bilirubin - Negative Bedside Urine Ketone - Negative Urine Specific [place] 1.025 Bedside Urine Occult Blood + Bedside Urine pH 5.5 Bedside Urine Protein - Negative Bedside Urine Urobilinogen - Negative Bedside Urine Nitrite - Negative Bedside Urine Leukocytes - Negative Esterase Imaging Data Extremity x-ray #1: Radiologist's Impression: PROCEDURE:? XR FOOT LT MIN 3V ? INDICATIONS:? Foot pain base of 3,4,5 digits ? TECHNIQUE:? 3 views of the foot were acquired.? ? COMPARISON:? None. ? FINDINGS:? ? Bones:? There is generalized osteopenia.? A questionable cortical lucency is seen at the medial aspect of the 3rd proximal phalangeal neck on the oblique view only that could represent a nondisplaced fracture.? No suspicious bony lesions.? Degenerative changes are seen at the tarsometatarsal joints and there are mild degenerative changes of the 1st metatarsophalangeal joint. ? Soft tissues:? Arterial vascular calcifications are noted.? Mild soft tissue edema is seen in the forefoot.? ? IMPRESSION:? Questionable nondisplaced fracture of the 3rd proximal phalangeal neck.? Recommend correlation for point tenderness in this location.? Repeat radiographs could be obtained in 7-10 days when osseous reabsorption would make an acute fracture line more visible. ? ? Dictated by: Scott Villar M.D. on 01/19/2021 at 12:59 ? ? Approved by: Scott Villar M.D. on 01/19/2021 at 13:05 ? [facility] Narrative Medical decision making narrative: 81-year-old male with past medical history prostate cancer with metastasis to bone, hyperglycemia, GI bleeds, CAD, rheumatoid arthritis, TIA, obstructive sleep apnea, small-cell lung cancer presents to the ED with 1 week of left foot pain. physical exam reassuring for no lacerations. given tenderness to palpation of left 5th toe, will obtain x-rays to rule out fractures/dislocations. Will reassess. <Giuseppe Brownlee DO - Last Filed: 01/26/21 07:06> Lab Data Labs: Urine Dip Bedside Urine Glucose Negative Bedside Urine Bilirubin - Negative Bedside Urine Ketone - Negative Urine Specific [place] 1.025 Bedside Urine Occult Blood + Bedside Urine pH 5.5 Bedside Urine Protein - Negative Bedside Urine Urobilinogen - Negative Bedside Urine Nitrite - Negative Bedside Urine Leukocytes - Negative Esterase Discharge Plan Departure Patient Disposition: Home Clinical Impression: Foot pain Qualifiers: Laterality: left Qualified Code(s): M79.672 - Pain in left foot Instructions: DI for Foot Pain Activity Restrictions/Additional Instructions: You were evaluated in the ED today for left foot pain. Your x-ray shows a possible nondisplaced fracture of the base of the 3rd toe. Please use the boot until symptoms improve. Please follow-up with a instrumentation and controls designer. Return to the ED if symptoms worsen. Prescriptions: No Action atorvastatin [Lipitor] 40 MG tablet 40 mg PO BEDTIME Qty: 0 RF: 0 tamsulosin [Flomax] 0.4 mg capsule 0.4 mg PO BEDTIME Qty: 90 RF: 3 Xarelto 20 mg Tablet 20 mg PO DAILY Qty: 90 RF: 0 losartan 50 mg Tablet 50 mg PO DAILY RF: 0 furosemide 20 mg Tablet 20 mg PO DAILY PRN (Reason: Edema) RF: 0 carvedilol 25 mg Tablet 25 mg PO BID RF: 0 minoxidil 10 mg Tablet 5 mg PO DAILY RF: 0 (DME) Respir[employer] [place] Dreamstation BIPAP Qty: 1 RF: 0 potassium citrate 10 mEq (1,080 mg) tablet extended release 10 meq PO TID Qty: 270 RF: 3 Referrals: Gurdeep Cameron MD [Primary Care Provider] - <Giuseppe Brownlee DO - Last Filed: 01/26/21 07:06> Cosign ED Attending Coszulyature Attestation: Dr Brownlee Co-Sign Statement: I was available for consultation during this patient's emergency department visit. This chart is signed by myself for administrative purposes only. I did not have direct contact with this patient during this visit. They were seen independently by the APC.
--- NOTE | 2021-01-19 12:36 | DI.RAD.S_ITS ---
PROCEDURE: XR FOOT LT MIN 3V INDICATIONS: Foot pain base of 3,4,5 digits TECHNIQUE: 3 views of the foot were acquired. COMPARISON: None. FINDINGS: Bones: There is generalized osteopenia. A questionable cortical lucency is seen at the medial aspect of the 3rd proximal phalangeal neck on the oblique view only that could represent a nondisplaced fracture. No suspicious bony lesions. Degenerative changes are seen at the tarsometatarsal joints and there are mild degenerative changes of the 1st metatarsophalangeal joint. Soft tissues: Arterial vascular calcifications are noted. Mild soft tissue edema is seen in the forefoot. IMPRESSION: Questionable nondisplaced fracture of the 3rd proximal phalangeal neck. Recommend correlation for point tenderness in this location. Repeat radiographs could be obtained in 7-10 days when osseous reabsorption would make an acute fracture line more visible. Dictated by: Scott Villar M.D. on 01/19/2021 at 12:59 Approved by: Scott Villar M.D. on 01/19/2021 at 13:05
[2021-01-19 13:40] VITALS: BP 134/60; PULSE 73; O2SAT 99
== END 2021-01-19 14:04 | disposition home or self-care (01) ==
PROVIDERS: Emergency Provider Student in an Organized Health Care Education/Training Program; PCP Internal Medicine
DX: M79.672 Pain in left foot (principal)
CPT/HCPCS: 73630; 81003; 99283

== ENCOUNTER → 2021-02-01 10:48 | Outpatient (CLI) | payer MEDICARE, OTHER, SELFPAY ==
--- NOTE | 2021-02-01 10:52 | DI.RAD.S_ITS ---
PROCEDURE: XR FOOT LT MIN 3V INDICATIONS: PAIN TECHNIQUE: 3 views of the foot were acquired. COMPARISON: [facility], CR, XR FOOT LT MIN 3V, 01/19/2021, 12:44. FINDINGS: Bones: No definite acute fracture. There is diffuse osteopenia. Marginal lucencies at the 5th MTP joint, although limited evaluation given decreased bone mineralization. Mild 1st MTP joint degeneration. 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 Soft tissues: Extensive vascular calcifications. IMPRESSION: Diffuse osteopenia. Lucent appearance at the 5th MTP joint although this could be due to decreased bone mineralization. If there is clinical concern, continued short interval radiographic followup or contrast enhanced MRI could be performed to assess for early infection. Scattered degenerative changes as above. Dictated by: Israel Hicks M.D. on 02/01/2021 at 11:45 Approved by: Israel Hicks M.D. on 02/01/2021 at 11:52
--- NOTE | 2021-02-01 10:52 | DI.RAD.S_ITS ---
PROCEDURE: XR SHOULDER RT MIN 2V INDICATIONS: PAIN TECHNIQUE: 3 views of the shoulder were acquired. COMPARISON: [facility], CR, XR SHOULDER RT MIN 2V, 10/29/2019, 15:26. FINDINGS: Bones: No acute fracture. Severe AC and glenohumeral joint degeneration. Soft tissues: No suspicious soft tissue calcifications. IMPRESSION: Severe right shoulder joint degeneration, grossly unchanged since 10/29/19. Dictated by: Israel Hicks M.D. on 02/01/2021 at 12:04 Approved by: Israel Hicks M.D. on 02/01/2021 at 12:08
== END ==
PROVIDERS: PCP Internal Medicine; Referring Provider Internal Medicine; Visit Provider Internal Medicine
DX: M75.81 Other shoulder lesions, right shoulder (principal); M19.011 Primary osteoarthritis, right shoulder; M79.672 Pain in left foot; M85.872 Other specified disorders of bone density and structure, left ankle and foot
CPT/HCPCS: 73030; 73630

== ENCOUNTER 2021-03-08 19:19 | Emergency (ER) | payer MEDICARE, OTHER, SELFPAY ==
[2021-03-08] VITALS (53 sets, daily range): BP systolic 77–119; BP diastolic 45–67; PULSE 54–92; RESP 10–73; TEMP 36.2–36.3; O2SAT 91–99
--- NOTE | 2021-03-08 19:19 | DI.CT.S_ITS ---
PROCEDURE: CT STROKE INDICATIONS: speech TECHNIQUE: Noncontrast 4.5 mm thick angled axial sections acquired from the foramen magnum to the vertex, with coronal reformats. For radiation dose reduction, the following was used: automated exposure control, adjustment of mA and/or kV according to patient size. COMPARISON: None. FINDINGS: Image quality: Excellent. CSF spaces: Basal cisterns are patent. No extra-axial fluid collections. The ventricles are symmetric in size and shape. Brain: No intracranial bleeds or masses. There is cerebral volume loss for age, with resultant ventricular and sulcal prominence. There are periventricular and deep white matter chronic small vessel ischemic changes. There is intracranial internal carotid artery and vertebral artery atherosclerosis. Skull and face: Calvarium and visualized facial bones appear intact, without suspicious lesions. Sinuses: Partially visualized mucous retention cyst versus polyp noted in the right maxillary sinus. The mastoids are clear. IMPRESSION: No acute intracranial disease process. Findings discussed with Dr. Olsen on March 08, 2021 at 7:31 p.m.. This study fulfills neurological imaging criteria for inclusion or exclusion of acute stroke therapies based on available published neurological guidelines. Dictated by: Yenny Burgess MD, PhD on 03/08/2021 at 19:31 Approved by: Yenny Burgess MD, PhD on 03/08/2021 at 19:40
--- NOTE | 2021-03-08 19:19 | DI.CT.S_ITS ---
PROCEDURE: CT ANGIO HEAD AND NECK INDICATIONS: speech TECHNIQUE: After the administration of intravenous contrast, 1 mm thick sections acquired from the aortic arch through the [place]. Post-contrast 4.5 mm thick sections then re-acquired from the foramen magnum to the vertex. 3-dimensional [id number] (MIP) and/or volume rendering reformats were acquired of the central intracranial vasculature and neck separately. COMPARISON: None. FINDINGS: Image quality: Excellent. BRAIN: CSF spaces: Ventricles are normal in size and shape. Basal cisterns are patent. No extra-axial fluid collections. Brain: No midline shift. No intracranial bleeds or masses. Ngo-white matter interface appears intact. Skull and face: Calvarium and facial bones appear intact, without suspicious lesions. Orbits appear normal. Sinuses: Sinuses and mastoids are clear. HEAD CT ANGIOGRAPHY: Anterior circulation: Intracranial internal carotid arteries are normal in flow. Atherosclerotic calcifications noted in the cavernous and clinoid segments of the internal carotid arteries bilaterally which causes mild stenosis of the vessels. The flow within the paired anterior cerebral arteries is normal and symmetric. The flow within the middle cerebral arteries is normal and symmetric. The anterior communicating artery is seen. No aneurysms are seen. Posterior circulation: Atherosclerotic calcification noted in the proximal V4 segment of the left vertebral artery which causes short segment, high-grade stenosis. Intracranial right vertebral artery is fully patent. Basilar artery is fully patent. Flow within the posterior cerebral arteries is normal and symmetric. No aneurysms are seen. Dural sinuses demonstrate normal postcontrast enhancement. NECK CT ANGIOGRAPHY: Carotid system: The great vessels demonstrate a conventional anatomy as they arise from the aortic arch. The origins of the common carotid arteries appear patent. The common carotid arteries demonstrate normal caliber and courses. Soft and calcified atherosclerotic plaque noted in the origins of the internal carotid arteries bilaterally the causes less than 50% stenosis of the vessels. Posterior circulation: Mild atherosclerotic calcification noted in the origin of the right vertebral artery which causes mild narrowing of the vessel. 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 There is reconstitution of slow flow in the distal V2 segment of left vertebral artery. Patient is right vertebral artery dominant. The more superior extracranial portions of both vertebral arteries also demonstrate normal courses and calibers. They join to form a normal appearing basilar artery. Soft tissues: Visualized neck soft tissues demonstrate no suspicious abnormalities. Bones: No suspicious bony lesions. Macro spine. Visualized cervical spine appears normally aligned. IMPRESSION: 1. No acute intracranial disease process. 2. Less than 50% stenosis of the origins of the internal carotid arteries. 3. 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 There is reconstitution of diminished flow in the distal V2 segment of the left vertebral artery. High-grade, short segment stenosis noted in the proximal V4 segment of the left vertebral artery. 4. Right vertebral artery is fully patent. Any quantitative measurements of stenosis were performed using NASCET criteria. Dictated by: Yenny Burgess MD, PhD on 03/08/2021 at 19:47 Approved by: Yenny Burgess MD, PhD on 03/08/2021 at 19:55
--- NOTE | 2021-03-08 19:27 | ED_ITS ---
HPI - Neuro Symptoms/Deficit General Chief Complaint: Neuro Symptoms/Deficit Stated Complaint: Stroke Time Seen by Provider: 03/08/21 19:54 History of Present Illness HPI Narrative: 81-year-old male history of prostate cancer with metastasis to bone, hyper glycemia, TIA, coronary artery disease, small cell lung cancer, pulmonary embolism on Xarelto presenting as a code stroke with garbled speech. states that 25 minutes prior to arrival he was having difficulty speaking. She states that he was extremely tired all day yesterday and slept quite a bit which is abnormal for him. He has not eaten or drank much today and overall is weaker. This evening he was talking but she had a difficult time understanding what he was saying which is out of the norm. EMS reports that they are glucose was over 500 no history of diabetes but does have history of hyperglycemia cording to records. Glucose now his in the 100s. His speech now has improved. Extremely hard of hearing does much better her hearing aids. Related Data Home Medications Medication Instructions Recorded Confirmed atorvastatin 40 mg tablet (Lipitor) 40 mg PO BEDTIME #0 03/21/17 03/08/21 Respironics Dreamstation BIPAP #1 ea 08/29/18 03/08/21 furosemide 20 mg tablet 20 mg PO DAILY PRN 01/22/19 03/08/21 losartan 50 mg tablet 50 mg PO DAILY 01/22/19 03/08/21 carvedilol 25 mg tablet 25 mg PO BID 05/08/19 03/08/21 minoxidil 10 mg tablet 5 mg PO DAILY 05/08/19 03/08/21 potassium chloride 10 mEq 10 meq PO DAILY 03/08/21 03/08/21 tablet,extended release Previous Rx's Medication Instructions Recorded rivaroxaban 20 mg tablet (Xarelto) 20 mg PO DAILY #90 tab 02/07/18 potassium citrate 10 mEq (1,080 10 meq PO TID #270 tab 04/29/20 mg) tablet,extended release oxycodone-acetaminophen 5 mg-325 1 tab PO Q6H PRN #60 tab 03/01/21 mg tablet Allergies Allergy/AdvReac Type Severity Reaction Status Date / Time niacin [NIACIN] AdvReac Severe Hypotension Verified 03/08/21 19:54 amlodipine [AMLODIPINE] AdvReac Unknown Verified 03/08/21 19:54 chlorthalidone AdvReac Unknown Elevated Verified 03/08/21 19:54 Creatinine gemfibrozil [GEMFIBROZIL] AdvReac Unknown Verified 03/08/21 19:54 hydrochlorothiazide AdvReac Unknown Verified 03/08/21 19:54 [HYDROCHLOROTHIAZIDE] hydroxychloroquine AdvReac Unknown Diarrhea Verified 03/08/21 19:54 [From Plaquenil] lisinopril [LISINOPRIL] AdvReac Unknown Diarrhea Verified 03/08/21 19:54 Review of Systems Review of Systems ROS Unobtainable: All systems reviewed & are unremarkable except as noted in HPI and below Constitutional Constitutional: Reports body ache(s), Reports fatigue and Denies fever(s) ENT Ears, Nose, Mouth, and Throat: Denies vertigo and Denies dizziness Cardiovascular Cardiovascular: Reports chest pain Respiratory Respiratory: Denies chest congestion and Denies cough Gastrointestinal Gastrointestinal: Denies abdominal pain, Denies constipation and Denies nausea Musculoskeletal Musculoskeletal: Denies back pain and Denies myalgias Integumentary/Breasts Skin/Breast: Denies rash Neurologic Neurologic: Denies vertigo and Denies dizziness Endocrine Endocrine: Reports fatigue Patient History Medical History Coronary artery disease Depression Diabetes type 2, controlled Erectile dysfunction GERD (gastroesophageal reflux disease) History of nephrolithiasis History of nephrolithiasis History of nephrolithotomy with removal of calculi History of pulmonary embolism Hyperlipidemia Hypertension Kidney stone Leukopenia Lung cancer Metastatic malignant neoplasm to prostate Neuropathy Obstructive sleep apnea of adult Prostate cancer Prostate cancer metastatic to bone Renal insufficiency Rheumatoid arthritis RLS (restless legs syndrome) Small cell lung cancer Thrombocytopenia Thrombophlebitis of arm, left Urge incontinence Urinary calculi UTI (urinary tract infection) Surgical History H/O coronary angioplasty H/O umbilical hernia repair History of appendectomy History of cholecystectomy Hx of hernia repair Hx of lithotripsy Family History Father No problems noted. Mother No problems noted. Brother Hx of CABG Diabetes mellitus Coronary artery disease Social History marital status: unmarried,living together details: partner Vanessa Alonso, lives in [place] household members: significant other lives independently: No caregiver/support person: Yes Smoking Status: Current every day smoker alcohol intake: never Smoking Status: Current every day smoker alcohol intake frequency: holidays/special occasions only Substance Use Type: does not use Exam Initial Vital Signs Initial Vital Signs: Vital Signs Temperature 97.2 F L 03/08/21 19:15 Pulse Rate 92 H 03/08/21 19:15 Respiratory Rate 20 03/08/21 19:15 Blood Pressure 91/45 L 03/08/21 19:15 Pulse Oximetry 99 03/08/21 19:15 GENERAL: Alert 81-year-old male HEENT: Head atraumatic,EOMI, pupils reactive, face symmetric, moist mucous membranes, hard of hearing CARDIOVASCULAR: Regular rate and rhythm without murmurs, rubs or gallops. RESPIRATORY: Breath sounds equal bilaterally, no wheezes rales or rhonchi. ABDOMEN: Soft, nontender. Normoactive bowel sounds all 4 quadrants. No guarding or rebound. EXTREMITIES: Normal range of motion, no clubbing or edema. Neurovascularly intact NEUROLOGICAL: Alert and oriented x3.Normal gait and speech. Cranial nerves II through XII grossly intact. Good kmatev-wy-szoh, good [id number], strength equal bilaterally, no dysarthria or aphasia, sensation in tact to soft touch bilaterally, no visual changes, no facial droop SKIN: Warm, dry, no laceration, no petechiae, no rashes or lesions. Scores NIH Stroke Scale Level of Conciousness: Alert, keenly responsive Ask month/age: Answers both questions correctly. Open/close eyes, close hand: Performs both tasks correctly Best gaze horizontal: Normal Visual rangel: No visual loss Facial palsy: Normal symetrical movement Left arm drift: No drift for full 10 sec Right arm drift: No drift for full 10 sec Left leg drift: No drift for full 5 sec Right leg drift: No drift for full 5 sec Limb ataxia: Absent Sensory on face/arms/legs: Normal, no sensory loss Best language: No aphasia, normal Dysarthria: Normal Extinction or inattention: No abnormality Total NIH Stroke scale score: 0 Course Orders Ordered: Discontinued Medications Sodium Chloride (Normal Saline 0.9%) 1,000 mls @ 1,000 mls/hr IV BOLUS ONE Stop: 03/08/21 20:44 Last Infusion: 03/08/21 20:40 Dose: 0 mls/hr Documented by: Admin: 03/08/21 19:45 Dose: 1,000 mls/hr Documented by: ANTONETTE Sodium Chloride (Normal Saline 0.9%) 1,000 mls @ 1,000 mls/hr IV BOLUS ONE Stop: 03/08/21 21:46 Last Infusion: 03/08/21 23:03 Dose: 0 mls/hr Documented by: Admin: 03/08/21 20:48 Dose: 1,000 mls/hr Documented by: ANTONETTE Lidocaine HCl (Lidocaine 2% (Glydo) 6 Ml Gel) 6 ml TOP NOW ONE Stop: 03/08/21 20:02 Last Admin: 03/08/21 20:14 Dose: 6 ml Documented by: ANTONETTE Vital Signs Vital signs: Vital Signs - 8 hr 03/08/21 23:15 03/08/21 23:33 03/08/21 23:35 Pulse Rate 68 83 65 Respiratory Rate 17 15 Blood Pressure 98/55 L Pulse Oximetry 94 92 94 03/08/21 23:40 03/08/21 23:45 03/08/21 23:50 Pulse Rate 55 L 54 L 54 L Respiratory Rate 12 14 13 Blood Pressure Pulse Oximetry 92 97 96 03/08/21 23:55 03/09/21 00:00 03/09/21 00:05 Pulse Rate 57 L 56 L 59 L Respiratory Rate 15 15 15 Blood Pressure Pulse Oximetry 97 95 95 MDM - Neuro Symptoms/Deficit Lab Data Result diagrams: 03/08/21 19:27 03/08/21 19:27 Labs: Lab Results 03/08/21 03/08/21 03/08/21 Range/Units 19:27 19:27 19:40 WBC 4.7 (4.5-11.0) X10^3/uL RBC 3.16 L (4.5-5.9) X10^6/uL Hgb 10.5 L (13.5-17.5) g/dL Hct 30.1 L (41-53) % MCV 95.3 (80-100) fL MCH 33.2 (26-34) PG MCHC 34.8 (30-36) % RDW 15.2 H (11.6-14.8) % Plt Count 86 L (150-400) X10^3/uL Neut % (Auto) 51.1 (50-75) % Lymph % (Auto) 33.2 (25-40) % [place] % (Auto) 11.4 (3-14) % Eos % (Auto) 3.9 (2-4) % Baso % (Auto) 0.4 (0-2) % Neut # (Auto) 2400 (8198-4135) /uL Lymph # (Auto) 1500 (5853-9126) /uL [place] # (Auto) 500 (0-900) /uL Eos # (Auto) 200 (0-450) /uL Baso # (Auto) 0 (0-100) /uL PT 21.7 H (10.1-12.7) SECONDS INR 1.9 H (0.9-1.3) APTT 42 H (26.4-36.2) SECONDS Sodium 137 (137-145) mmol/L Potassium 5.3 H (3.4-5.1) mmol/L Chloride 103 (98-107) mmol/L Carbon Dioxide 28 (22-32) mmol/L BUN 31 H (9-20) mg/dL Creatinine 1.71 H (0.66-1.25) mg/dL Estimated GFR 38.6 L (>60) mL/min BUN/Creatinine Ratio 18.1 (6-22) Glucose 171 H (80-110) mg/dL Lactate (0.7-2.1) mmol/L Calcium 9.6 (8.4-10.2) mg/dL Total Bilirubin 1.0 (0.2-1.3) mg/dL AST 22 (17-59) IU/L ALT 10 (<50) IU/L Alkaline Phosphatase 65 (38-126) U/L Total Creatine Kinase 123 (55-170) U/L CK-MB (CK-2) 3.07 H (<2.37) ng/mL CK-MB (CK-2) Rel Index 2.5 (1.5-5.0) % Troponin I < 0.012 (0.01-0.034) ng/mL NT-Pro-B Natriuret Pep (<450) pg/mL Total Protein 6.5 (6.3-8.2) g/dL Albumin 3.8 (3.5-5.0) g/dL Globulin 2.7 (1.7-4.1) g/dL Albumin/Globulin Ratio 1.4 (1.0-2.8) Procalcitonin (<0.5) ng/mL Urine Color Urine Appearance Urine pH (4.5-8.0) Ur Specific [place] (1.000-1.035) Urine Protein (Negative) Urine Glucose (UA) (Negative) g/dL Urine Ketones (NEGATIVE) Urine Occult Blood (Negative) Urine Nitrate (Negative) Urine Bilirubin (NEGATIVE) Urine Urobilinogen (0.2) E.U./dL Ur Leukocyte Esterase (NEGATIVE) Urine RBC (0-5/HPF) Urine WBC (0-5/HPF) Ur Squamous Epith Cells (0-5/HPF) Urine Bacteria (None) Hyaline Casts (None) Ur Culture Indicated? U Opiates 300ng/mL cut (Negative) Ur Oxycodone Screen (Negative) Urine Methadone Screen (Negative) Ur Barbiturates Screen (Negative) U Tricyclic Antidepress (Negative) Ur Phencyclidine Scrn (Negative) Ur Amphetamines Screen (Negative) U Methamphetamines Scrn (Negative) Ur MDMA Scrn (Ecstasy) (Negative) U Benzodiazepines Scrn (Negative) Urine Cocaine Screen (Negative) U Marijuana (THC) Screen (Negative) SARS-CoV-2 (PCR) (Negative) 03/08/21 03/08/21 03/08/21 Range/Units 19:40 19:40 19:40 WBC (4.5-11.0) X10^3/uL RBC (4.5-5.9) X10^6/uL Hgb (13.5-17.5) g/dL Hct (41-53) % MCV (80-100) fL MCH (26-34) PG MCHC (30-36) % RDW (11.6-14.8) % Plt Count (150-400) X10^3/uL Neut % (Auto) (50-75) % Lymph % (Auto) (25-40) % [place] % (Auto) (3-14) % Eos % (Auto) (2-4) % Baso % (Auto) (0-2) % Neut # (Auto) (8406-1367) /uL Lymph # (Auto) (0109-7148) /uL [place] # (Auto) (0-900) /uL Eos # (Auto) (0-450) /uL Baso # (Auto) (0-100) /uL PT (10.1-12.7) SECONDS INR (0.9-1.3) APTT (26.4-36.2) SECONDS Sodium (137-145) mmol/L Potassium (3.4-5.1) mmol/L Chloride (98-107) mmol/L Carbon Dioxide (22-32) mmol/L BUN (9-20) mg/dL Creatinine (0.66-1.25) mg/dL Estimated GFR (>60) mL/min BUN/Creatinine Ratio (6-22) Glucose (80-110) mg/dL Lactate 2.2 H (0.7-2.1) mmol/L Calcium (8.4-10.2) mg/dL Total Bilirubin (0.2-1.3) mg/dL AST (17-59) IU/L ALT (<50) IU/L Alkaline Phosphatase (38-126) U/L Total Creatine Kinase (55-170) U/L CK-MB (CK-2) (<2.37) ng/mL CK-MB (CK-2) Rel Index (1.5-5.0) % Troponin I (0.01-0.034) ng/mL NT-Pro-B Natriuret Pep (<450) pg/mL Total Protein (6.3-8.2) g/dL Albumin (3.5-5.0) g/dL Globulin (1.7-4.1) g/dL Albumin/Globulin Ratio (1.0-2.8) Procalcitonin 0.07 (<0.5) ng/mL Urine Color Urine Appearance Urine pH (4.5-8.0) Ur Specific Boody (1.000-1.035) Urine Protein (Negative) Urine Glucose (UA) (Negative) g/dL Urine Ketones (NEGATIVE) Urine Occult Blood (Negative) Urine Nitrate (Negative) Urine Bilirubin (NEGATIVE) Urine Urobilinogen (0.2) E.U./dL Ur Leukocyte Esterase (NEGATIVE) Urine RBC (0-5/HPF) Urine WBC (0-5/HPF) Ur Squamous Epith Cells (0-5/HPF) Urine Bacteria (None) Hyaline Casts (None) Ur Culture Indicated? U Opiates 300ng/mL cut (Negative) Ur Oxycodone Screen (Negative) Urine Methadone Screen (Negative) Ur Barbiturates Screen (Negative) U Tricyclic Antidepress (Negative) Ur Phencyclidine Scrn (Negative) Ur Amphetamines Screen (Negative) U Methamphetamines Scrn (Negative) Ur MDMA Scrn (Ecstasy) (Negative) U Benzodiazepines Scrn (Negative) Urine Cocaine Screen (Negative) U Marijuana (THC) Screen (Negative) SARS-CoV-2 (PCR) Negative (Negative) 03/08/21 03/08/21 03/08/21 Range/Units 19:40 19:50 20:10 WBC (4.5-11.0) X10^3/uL RBC (4.5-5.9) X10^6/uL Hgb (13.5-17.5) g/dL Hct (41-53) % MCV (80-100) fL MCH (26-34) PG MCHC (30-36) % RDW (11.6-14.8) % Plt Count (150-400) X10^3/uL Neut % (Auto) (50-75) % Lymph % (Auto) (25-40) % [place] % (Auto) (3-14) % Eos % (Auto) (2-4) % Baso % (Auto) (0-2) % Neut # (Auto) (2680-8337) /uL Lymph # (Auto) (0940-5074) /uL [place] # (Auto) (0-900) /uL Eos # (Auto) (0-450) /uL Baso # (Auto) (0-100) /uL PT (10.1-12.7) SECONDS INR (0.9-1.3) APTT (26.4-36.2) SECONDS Sodium (137-145) mmol/L Potassium (3.4-5.1) mmol/L Chloride (98-107) mmol/L Carbon Dioxide (22-32) mmol/L BUN (9-20) mg/dL Creatinine (0.66-1.25) mg/dL Estimated GFR (>60) mL/min BUN/Creatinine Ratio (6-22) Glucose (80-110) mg/dL Lactate (0.7-2.1) mmol/L Calcium (8.4-10.2) mg/dL Total Bilirubin (0.2-1.3) mg/dL AST (17-59) IU/L ALT (<50) IU/L Alkaline Phosphatase (38-126) U/L Total Creatine Kinase (55-170) U/L CK-MB (CK-2) (<2.37) ng/mL CK-MB (CK-2) Rel Index (1.5-5.0) % Troponin I (0.01-0.034) ng/mL NT-Pro-B Natriuret Pep 596 H (<450) pg/mL Total Protein (6.3-8.2) g/dL Albumin (3.5-5.0) g/dL Globulin (1.7-4.1) g/dL Albumin/Globulin Ratio (1.0-2.8) Procalcitonin (<0.5) ng/mL Urine Color Urine Appearance Urine pH (4.5-8.0) Ur Specific Boody (1.000-1.035) Urine Protein (Negative) Urine Glucose (UA) (Negative) g/dL Urine Ketones (NEGATIVE) Urine Occult Blood (Negative) Urine Nitrate (Negative) Urine Bilirubin (NEGATIVE) Urine Urobilinogen (0.2) E.U./dL Ur Leukocyte Esterase (NEGATIVE) Urine RBC (0-5/HPF) Urine WBC (0-5/HPF) Ur Squamous Epith Cells (0-5/HPF) Urine Bacteria (None) Hyaline Casts (None) Ur Culture Indicated? U Opiates 300ng/mL cut Negative (Negative) Ur Oxycodone Screen Positive H (Negative) Urine Methadone Screen Negative (Negative) Ur Barbiturates Screen Negative (Negative) U Tricyclic Antidepress Negative (Negative) Ur Phencyclidine Scrn Negative (Negative) Ur Amphetamines Screen Negative (Negative) U Methamphetamines Scrn Negative (Negative) Ur MDMA Scrn (Ecstasy) Negative (Negative) U Benzodiazepines Scrn Negative (Negative) Urine Cocaine Screen Negative (Negative) U Marijuana (THC) Screen Negative (Negative) SARS-CoV-2 (PCR) Negative (Negative) 03/08/21 03/08/21 Range/Units 20:10 21:58 WBC (4.5-11.0) X10^3/uL RBC (4.5-5.9) X10^6/uL Hgb (13.5-17.5) g/dL Hct (41-53) % MCV (80-100) fL MCH (26-34) PG MCHC (30-36) % RDW (11.6-14.8) % Plt Count (150-400) X10^3/uL Neut % (Auto) (50-75) % Lymph % (Auto) (25-40) % [place] % (Auto) (3-14) % Eos % (Auto) (2-4) % Baso % (Auto) (0-2) % Neut # (Auto) (6234-0615) /uL Lymph # (Auto) (8515-5715) /uL [place] # (Auto) (0-900) /uL Eos # (Auto) (0-450) /uL Baso # (Auto) (0-100) /uL PT (10.1-12.7) SECONDS INR (0.9-1.3) APTT (26.4-36.2) SECONDS Sodium (137-145) mmol/L Potassium (3.4-5.1) mmol/L Chloride (98-107) mmol/L Carbon Dioxide (22-32) mmol/L BUN (9-20) mg/dL Creatinine (0.66-1.25) mg/dL Estimated GFR (>60) mL/min BUN/Creatinine Ratio (6-22) Glucose (80-110) mg/dL Lactate 0.9 (0.7-2.1) mmol/L Calcium (8.4-10.2) mg/dL Total Bilirubin (0.2-1.3) mg/dL AST (17-59) IU/L ALT (<50) IU/L Alkaline Phosphatase (38-126) U/L Total Creatine Kinase (55-170) U/L CK-MB (CK-2) (<2.37) ng/mL CK-MB (CK-2) Rel Index (1.5-5.0) % Troponin I (0.01-0.034) ng/mL NT-Pro-B Natriuret Pep (<450) pg/mL Total Protein (6.3-8.2) g/dL Albumin (3.5-5.0) g/dL Globulin (1.7-4.1) g/dL Albumin/Globulin Ratio (1.0-2.8) Procalcitonin (<0.5) ng/mL Urine Color Yellow Urine Appearance Clear Urine pH 6.5 (4.5-8.0) Ur Specific Boody <=1.005 (1.000-1.035) Urine Protein Negative (Negative) Urine Glucose (UA) Negative (Negative) g/dL Urine Ketones Negative (NEGATIVE) Urine Occult Blood Trace-lysed (Negative) Urine Nitrate Negative (Negative) Urine Bilirubin Negative (NEGATIVE) Urine Urobilinogen 1.0 (0.2) E.U./dL Ur Leukocyte Esterase Negative (NEGATIVE) Urine RBC 0-1/hpf D (0-5/HPF) Urine WBC None seen (0-5/HPF) Ur Squamous Epith Cells 0-1 /hpf (0-5/HPF) Urine Bacteria Occasional (0-1) (None) Hyaline Casts 0-1/lpf (None) Ur Culture Indicated? Cult not indicated U Opiates 300ng/mL cut (Negative) Ur Oxycodone Screen (Negative) Urine Methadone Screen (Negative) Ur Barbiturates Screen (Negative) U Tricyclic Antidepress (Negative) Ur Phencyclidine Scrn (Negative) Ur Amphetamines Screen (Negative) U Methamphetamines Scrn (Negative) Ur MDMA Scrn (Ecstasy) (Negative) U Benzodiazepines Scrn (Negative) Urine Cocaine Screen (Negative) U Marijuana (THC) Screen (Negative) SARS-CoV-2 (PCR) (Negative) Point of Care Testing Glucose POC [address] scan - head: Radiologist's Impression: PROCEDURE:? CT STROKE ? INDICATIONS:? speech ? TECHNIQUE:? Noncontrast 4.5 mm thick angled axial sections acquired from the foramen magnum to the vertex, with coronal reformats.? For radiation dose reduction, the following was used:? automated exposure control, adjustment of mA and/or kV according to patient si ze.? ? COMPARISON:? None. ? FINDINGS:? Image quality:? Excellent.? ? CSF spaces:? Basal cisterns are patent.? No extra-axial fluid collections.? The ventricles are symmetric in size and shape.? ? Brain:? No intracranial bleeds or masses.? There is cerebral volume loss for age, with resultant ventricular and sulcal prominence.? There are periventricular and deep white matter chronic small vessel ischemic changes.? There is intracranial internal carotid artery and vertebral artery atherosclerosis.? ? Skull and face:? Calvarium and visualized facial bones appear intact, without suspicious lesions.? ? Sinuses:? Partially visualized mucous retention cyst versus polyp noted in the right maxillary sinus.? The mastoids are clear.? ? IMPRESSION:? No acute intracranial disease process. ? Findings discussed with Dr. Olsen on March 08, 2021 at 7:31 p.m.. ? This study fulfills neurological imaging criteria for inclusion or exclusion of acute stroke therapies based on available published neurological guidelines.? ? ? Dictated by: Yenny Burgess MD, PhD on 03/08/2021 at 19:31 ? ? CTA - brain/neck: Radiologist's Impression: PROCEDURE:? CT ANGIO HEAD AND NECK ? INDICATIONS:? speech ? TECHNIQUE:? After the administration of intravenous contrast, 1 mm thick sections acquired from the aortic arch through the [place].? Post-contrast 4.5 mm thick sections then re-acquired from the foramen magnum to the vertex.? 3-dimensional vsaxqqo-ghbhfrxpr-viebybzgji (MIP) and/or volume rendering reformats were acquired of the central intracranial vasculature and neck separately. ? COMPARISON:? None. ? FINDINGS:? Image quality:? Excellent.? ? BRAIN:? CSF spaces:? Ventricles are normal in size and shape.? Basal cisterns are patent.? No extra-axial fluid collections.? ? Brain:? No midline shift.? No intracranial bleeds or masses.? Ngo-white matter interface appears intact.? ? Skull and face:? Calvarium and facial bones appear intact, without suspicious lesions.? Orbits appear normal.? ? Sinuses:? Sinuses and mastoids are clear.? ? HEAD CT ANGIOGRAPHY:? Anterior circulation:? Intracranial internal carotid arteries are normal in flow. Atherosclerotic calcifications noted in the cavernous and clinoid segments of the internal carotid arteries bilaterally which causes mild stenosis of the vessels. ? The flow within the paired anterior cerebral arteries is normal and symmetric.? The flow within the middle cerebral arteries is normal and symmetric.? The anterior communicating artery is seen.? No aneurysms are seen.? ? Posterior circulation:? Atherosclerotic calcification noted in the proximal V4 segment of the left vertebral artery which causes short segment, high-grade stenosis.? Intracranial right vertebral artery is fully patent.? Basilar artery is fully patent.? Flow within the posterior cerebral arteries is normal and symmetric.? No aneurysms are seen. ? Dural sinuses demonstrate normal postcontrast enhancement.? ? ? NECK CT ANGIOGRAPHY:? Carotid system:? The great vessels demonstrate a conventional anatomy as they arise from the aortic arch.? The origins of the common carotid arteries appear patent.? The common carotid arteries demonstrate normal caliber and courses.? Soft and calcified atherosclerotic plaque noted in the origins of the internal carotid arteries bilaterally the causes less than 50% stenosis of the vessels. ? Posterior circulation:? Mild atherosclerotic calcification noted in the origin of the right vertebral artery which causes mild narrowing of the vessel.? Origin left vertebral artery is occluded.? There is reconstitution of slow flow in the distal V2 segment of left vertebral artery.? Patient is right vertebral artery dominant.? The more superior extracranial portions of both vertebral arteries also demonstrate normal courses and calibers.? They join to form a normal appearing basilar artery.? ? Soft tissues:? Visualized neck soft tissues demonstrate no suspicious abnormalities.? ? Bones:? No suspicious bony lesions.? Macro spine.? Visualized cervical spine appears normally aligned.? ? ? IMPRESSION:? ? 1. No acute intracranial disease process. ? 2. Less than 50% stenosis of the origins of the internal carotid arteries. ? 3. 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 There is reconstitution of diminished flow in the distal V2 segment of the left vertebral artery.? High-grade, short segment stenosis noted in the proximal V4 segment of the left vertebral artery.? ? 4. Right vertebral artery is fully patent.? ? Any quantitative measurements of stenosis were performed using NASCET criteria.? ? ? Dictated by: Yenny Burgess MD, PhD on 03/08/2021 at 19:47 ?? Chest x-ray: Radiologist's Impression: PROCEDURE:? XR CHEST 1V ? INDICATIONS:? weakness ? TECHNIQUE:? One view of the chest was acquired.? ? COMPARISON:? [facility], , XR CHEST 1V, 10/28/2020, 16:21. ? FINDINGS:? ? Surgical changes and devices:? None.? ? Lungs and pleura:? Central pulmonary vasculature congestion and slight prominence of the interstitium.? Small left-sided pleural fluid collection. ? Mediastinum:? Mediastinal contours appear normal.? Heart is enlarged ? Bones and chest wall:? No suspicious bony lesions.? Overlying soft tissues appear unremarkable.? ? IMPRESSION:? Cardiomegaly with central pulmonary venous congestion and interstitial prominence concerning for CHF.? Small left-sided pleural fluid collection.? ? ? Dictated by: Yenny Burgess MD, PhD on 03/08/2021 at 21:29 ? ? Approved by: Yenny Burgess MD, PhD on 03/08/2021 at 21:30? ECG Data Interpretation: EKG sinus rhythm rate 76 VA interval 192 he actually does have some ST depression in the lateral leads Q-wave noted in lead 3 similar to previous EKG hour ST depressions are more pronounced today. MDM Narrative Medical decision making narrative: Patient initially presents with confusion difficulty speaking, possible TIA help her symptoms improve all in the emergency department. Not a tPA candidate because of his Xarelto. He has no focal deficits with an NIH stroke scale of 0. He actually is hypotensive in the emergency department. Concern for possible sepsis/infection however no obvious source is found. He is given IV fluids in the emergency department for his blood pressure he does then developed some hypoxia requiring 1-2 L. However he has trialed off of the oxygen and he does well. At this time differential diagnosis includes infection versus TIA. Unlikely to be pulmonary embolism secondary to already on Xarelto. The patient has also had increasing weakness and sleeping for the last day or 2 which leads me to think more and sepsis etiology. However at this time he has no leukocytosis he is afebrile chest x-ray does not show pneumonia COVID is negative urinalysis does not show any source procalcitonin is is negative mild elevation of lactate of 2.2 which resolves to 0.9 after fluids. Patient does have some mild EKG changes troponin is negative. He is not having any chest pain. Discussed with patient admission to the hospital. Unfortunately and hospital does not have any bed availability however we were told [facility] does have bed availability. Patient is adamant about going home. He says he has to go smoke. He understands that he may go home and . He is 81 years old and feels like he has lived a good life. He is offered a nicotine patch and other medications to help with smoking. I have discussed all this with his . He has left Against Medical Advice previously. Patient is a DNR according to the they do not have paperwork. The patient is clinically sober, free from distracting injury, appears to have intact insight, judgment and reason. Does not meet criteria for involuntary hospitalization. Patient has the capacity to make decisions. Discharge Plan Departure Patient Disposition: Left Against Medical Advice Clinical Impression: Brain TIA Instructions: DI for Stroke-Ischemic, DI for Transient Ischemic Attack Activity Restrictions/Additional Instructions: You are leaving against medical advice It was recommended that you stay in the hospital to have further workup for possible mini-stroke and infection. Please return to the emergency department at any time for any new or worsening symptoms Plan follow-up a with your primary care doctor in 2-3 days Prescriptions: No Action atorvastatin [Lipitor] 40 MG tablet 40 mg PO BEDTIME Qty: 0 0RF Xarelto 20 mg Tablet 20 mg PO DAILY Qty: 90 0RF Rx Instructions: 1 tab daily for DVT losartan 50 mg Tablet 50 mg PO DAILY 0RF furosemide 20 mg Tablet 20 mg PO DAILY PRN (Reason: Edema) 0RF carvedilol 25 mg Tablet 25 mg PO BID 0RF minoxidil 10 mg Tablet 5 mg PO DAILY 0RF oxycodone-acetaminophen 5-325 mg Tablet 1 tab PO Q6H PRN (Reason: right shoulder pain, prostate cancer) Qty: 60 0RF potassium chloride 10 mEq Tablet Extended Release 10 meq PO DAILY 0RF (DME) [employer] Dreamstation BIPAP Qty: 1 0RF Dose Instruction: As directed Label Comments: Pressure: IPAP 12 EPAP 8 DME: [facility] Rx Instructions: As directed potassium citrate 10 mEq (1,080 mg) tablet extended release 10 meq PO TID Qty: 270 3RF Referrals: Gurdeep Cameron MD [Primary Care Provider] - Stand Alone Forms: Against Medical Advice
[2021-03-08 19:41] LABS: Add Manual Diff / Slide Review NO; Basophils Absolute Auto 0 /uL (0-100); Basophils Percent Auto 0.4 % (0-2); Eosinophils Absolute Auto 200 /uL (0-450); Eosinophils Percent Auto 3.9 % (2-4); Hematocrit 30.1 % (41-53); Hemoglobin 10.5 g/dL (13.5-17.5); Lymphocytes Absolute Auto 1500 /uL (1100-4500); Lymphocytes Percent Auto 33.2 % (25-40); Mean Corpuscular HGB Conc 34.8 % (30-36); Mean Corpuscular Hemoglobin 33.2 PG (26-34); Mean Corpuscular Volume 95.3 fL (80-100); Monocytes Absolute Auto 500 /uL (0-900); Monocytes Percent Auto 11.4 % (3-14); Neutrophils Absolute Auto 2400 /uL (1500-7000); Neutrophils Percent Auto 51.1 % (50-75); Platelet Count 86 X10^3/uL (150-400); Red Blood Cell Count 3.16 X10^6/uL (4.5-5.9); Red Cell Distribution Width 15.2 % (11.6-14.8); White Blood Cell Count 4.7 X10^3/uL (4.5-11.0)
[2021-03-08] MEDS: SODIUM CHLORIDE 0.9% 1,000 ML 1000 ML IV ×2 (19:45→20:48)
[2021-03-08 19:52] LABS: Alanine Aminotransferase 10 IU/L (<50); Albumin 3.8 g/dL (3.5-5.0); Albumin Globulin Ratio 1.4 (1.0-2.8); Alkaline Phosphatase 65 U/L (38-126); Aspartate Aminotransferase 22 IU/L (17-59); BUN Creatinine Ratio 18.1 (6-22); Blood Urea Nitrogen 31 mg/dL (9-20); Calcium 9.6 mg/dL (8.4-10.2); Carbon Dioxide 28 mmol/L (22-32); Chloride 103 mmol/L (98-107); Creatine Kinase 123 U/L (55-170); Estimated Glomerular Filt Rate 38.6 mL/min (>60); Globulin 2.7 g/dL (1.7-4.1); Glucose 171 mg/dL (80-110); HEMOLYSIS < 15 (0-50); Potassium 5.3 mmol/L (3.4-5.1); Sodium 137 mmol/L (137-145); Total Protein 6.5 g/dL (6.3-8.2)
[2021-03-08 19:54] LABS: INR 1.9 (0.9-1.3); Prothrombin Time 21.7 SECONDS (10.1-12.7)
[2021-03-08 19:56] LABS: PTT Partial Thromboplastin Tim 42 SECONDS (26.4-36.2)
[2021-03-08 20:03] LABS: Troponin I < 0.012 ng/mL (0.01-0.034)
[2021-03-08 20:05] LABS: Lactate (Lactic Acid) 2.2 mmol/L (0.7-2.1)
[2021-03-08 20:06] LABS: CKMB % Relative Index 2.5 % (1.5-5.0); Creatine Kinase MB 3.07 ng/mL (<2.37)
[2021-03-08] MEDS: LIDOCAINE 2% (GLYDO) 6 ML GEL TOP (20:14)
[2021-03-08 20:16] LABS: COVID19 -Nasal RAPID Negative (Negative)
--- NOTE | 2021-03-08 20:21 | PC.NURSE ---
Pt initial had garbled speech/ word salad which resolved during CT scan. Pt is noted to be hypotensive. states generalized weakness for a month w/o focal deficit. Denies fever, cough, chest pain, shortness of breath. denies covid exposure. states last blood work revealed poor kidney function. She states he has been sleeping all day with poor po intake and poor output.
[2021-03-08 20:23] LABS: Procalcitonin 0.07 ng/mL (<0.5)
[2021-03-08 20:45] LABS: UR Morphine/Opiate cutoff 300 Negative (Negative); Ur Creatinine Normal (Normal); Ur Specific Gravity Normal (Normal); Urine Amphetamines Negative (Negative); Urine Barbiturates Negative (Negative); Urine Benzodiazepines Negative (Negative); Urine Cocaine Negative (Negative); Urine MDMA Negative (Negative); Urine Methadone Negative (Negative); Urine Methamphetamines Negative (Negative); Urine Oxycodone Positive (Negative); Urine Phencyclidine Negative (Negative); Urine Tetrahydrocannabinol Negative (Negative); Urine Tricyclic Antidepressant Negative (Negative); Urine pH Normal (Normal)
[2021-03-08 20:59] LABS: COVID19 - ADMIT (NP swab/PCR) Negative (Negative)
[2021-03-08 21:01] LABS: Appearance Urine UA CLEAR; Bilirubin Urine UA NEGATIVE (NEGATIVE); Color Urine UA YELLOW; Glucose Urine UA NEGATIVE (Negative); Ketones Urine UA NEGATIVE (NEGATIVE); Leukocyte Esterase Urine UA NEGATIVE (NEGATIVE); Nitrite Urine UA NEGATIVE (Negative); Occult Blood Urine UA TRACE-LYSED (Negative); Protein Urine UA NEGATIVE (Negative); Specific Gravity Urine UA <=1.005 (1.000-1.035); pH Urine UA 6.5 (4.5-8.0)
--- NOTE | 2021-03-08 21:09 | DI.RAD.S_ITS ---
PROCEDURE: XR CHEST 1V INDICATIONS: weakness TECHNIQUE: One view of the chest was acquired. COMPARISON: [facility], CR, XR CHEST 1V, 10/28/2020, 16:21. FINDINGS: Surgical changes and devices: None. Lungs and pleura: Central pulmonary vasculature congestion and slight prominence of the interstitium. Small left-sided pleural fluid collection. Mediastinum: Mediastinal contours appear normal. Heart is enlarged Bones and chest wall: No suspicious bony lesions. Overlying soft tissues appear unremarkable. IMPRESSION: Cardiomegaly with central pulmonary venous congestion and interstitial prominence concerning for CHF. Small left-sided pleural fluid collection. Dictated by: Yenny Burgess MD, PhD on 03/08/2021 at 21:29 Approved by: Yenny Burgess MD, PhD on 03/08/2021 at 21:30
[2021-03-08 21:15] LABS: Hyaline Casts Urine 0-1/LPF; RBC Urine 0-1/HPF (0-5/HPF); Squamous Epithelial Cell Urine 0-1 /HPF (0-5/HPF); WBC Urine None Seen (0-5/HPF)
[2021-03-08 21:16] LABS: Bacteria Urine Occasional (0-1); Culture Indicated Urine Cult Not Indicated
[2021-03-08 21:36] LABS: NT-proBNP (BNP-Adult 18+) 596 pg/mL (<450)
[2021-03-08 21:52] LABS: Reflexed Lactate in 2 Hours Y
[2021-03-08 22:16] LABS: Lactate 2HR (Lactic Acid Rflx) 0.9 mmol/L (0.7-2.1)
[2021-03-09] VITALS: PULSE 56; RESP 15; O2SAT 95
[2021-03-09 00:05] VITALS: PULSE 59; RESP 15; O2SAT 95
== END 2021-03-09 00:17 | disposition left against medical advice (07) ==
PROVIDERS: Emergency Provider Emergency Medicine; PCP Internal Medicine
DX: G45.9 Transient cerebral ischemic attack, unspecified (principal); I95.9 Hypotension, unspecified; Z53.29 Procedure and treatment not carried out because of patient's decision for other reasons; Z20.822 Contact with and (suspected) exposure to COVID-19
CPT/HCPCS: 36415; 70450; 70496; 70498; 71045; 80053; 80305; 81001; 82550; 82553; 82962; 83605; 83880; 84145; 84484; 85025; 85610; 85730; 87040; 87635; 93005; 96360; 96361; 99285; C9803; Q9967

== ENCOUNTER 2021-03-11 08:51 | Emergency (ER) | payer MEDICARE, OTHER, SELFPAY ==
[2021-03-11 08:57] VITALS: BP 103/57; PULSE 59; RESP 14; TEMP 36.4; O2SAT 98; BMI 34.2
--- NOTE | 2021-03-11 09:23 | ED_ITS ---
HPI - Extremity Problem General Chief complaint: Extremity Problem,Nontraumatic Stated complaint: RT THIGH PAIN/SHARP Time Seen by Provider: 03/11/21 09:23 Source: patient Mode of arrival: Wheelchair Limitations: no limitations History of Present Illness HPI Narrative: This is an 81-year-old male who comes to the emergency department with complaint of right thigh pain more on the outer thigh. He states it has been there for about 2 weeks. He does not recall any trauma or injuries. He is on Xarelto daily. Patient and his have not appreciated significant new swelling. They have not appreciated any new color changes, ecchymosis rash or warmth or erythema. Patient does have some pain when he ambulates but is able to move his leg without much issue. It typically awakens him from sleep several times overnight and causes him to cry out in pain. He does have oxycodone he takes it about once daily but has a prescribed for every 6 hours. This was actually prescribed for his shoulder. He has had issues with pain in his groin in the opposite leg and his foot but this is a new location and different sensation. He was hospitalized recently for a TIA 03/08/2021.He does have a history of prostate cancer with metastases to the bone, hyperglycemia, coronary artery disease, small cell lung cancer a prior pulmonary emboli is why he is on Xarelto. Related Data Home Medications Medication Instructions Recorded Confirmed atorvastatin 40 mg tablet (Lipitor) 40 mg PO BEDTIME #0 03/21/17 03/08/21 Respironics Dreamstation BIPAP #1 ea 08/29/18 03/08/21 furosemide 20 mg tablet 20 mg PO DAILY PRN 01/22/19 03/08/21 losartan 50 mg tablet 50 mg PO DAILY 01/22/19 03/08/21 carvedilol 25 mg tablet 25 mg PO BID 05/08/19 03/08/21 minoxidil 10 mg tablet 5 mg PO DAILY 05/08/19 03/08/21 potassium chloride 10 mEq 10 meq PO DAILY 03/08/21 03/08/21 tablet,extended release Previous Rx's Medication Instructions Recorded rivaroxaban 20 mg tablet (Xarelto) 20 mg PO DAILY #90 tab 02/07/18 potassium citrate 10 mEq (1,080 10 meq PO TID #270 tab 04/29/20 mg) tablet,extended release oxycodone-acetaminophen 5 mg-325 1 tab PO Q6H PRN #60 tab 03/01/21 mg tablet gabapentin 100 mg capsule 100 mg PO BEDTIME #20 cap 03/11/21 Allergies Allergy/AdvReac Type Severity Reaction Status Date / Time niacin [NIACIN] AdvReac Severe Hypotension Verified 03/11/21 09:01 amlodipine [AMLODIPINE] AdvReac Unknown Verified 03/11/21 09:01 chlorthalidone AdvReac Unknown Elevated Verified 03/11/21 09:01 Creatinine gemfibrozil [GEMFIBROZIL] AdvReac Unknown Verified 03/11/21 09:01 hydrochlorothiazide AdvReac Unknown Verified 03/11/21 09:01 [HYDROCHLOROTHIAZIDE] hydroxychloroquine AdvReac Unknown Diarrhea Verified 03/11/21 09:01 [From Plaquenil] lisinopril [LISINOPRIL] AdvReac Unknown Diarrhea Verified 03/11/21 09:01 Review of Systems Review of Systems ROS Unobtainable: All systems reviewed & are unremarkable except as noted in HPI and below Patient History Medical History Coronary artery disease Depression Diabetes type 2, controlled Erectile dysfunction GERD (gastroesophageal reflux disease) History of nephrolithiasis History of nephrolithiasis History of nephrolithotomy with removal of calculi History of pulmonary embolism Hyperlipidemia Hypertension Kidney stone Leukopenia Lung cancer Metastatic malignant neoplasm to prostate Neuropathy Obstructive sleep apnea of adult Prostate cancer Prostate cancer metastatic to bone Renal insufficiency Rheumatoid arthritis RLS (restless legs syndrome) Small cell lung cancer Thrombocytopenia Thrombophlebitis of arm, left Urge incontinence Urinary calculi UTI (urinary tract infection) Surgical History H/O coronary angioplasty H/O umbilical hernia repair History of appendectomy History of cholecystectomy Hx of hernia repair Hx of lithotripsy Family History Father No problems noted. Mother No problems noted. Brother Hx of CABG Diabetes mellitus Coronary artery disease Social History marital status: unmarried,living together details: partner Vanessa Alonso, lives in [place] household members: significant other lives independently: No caregiver/support person: Yes Smoking Status: Current every day smoker alcohol intake: never Smoking Status: Current every day smoker alcohol intake frequency: holidays/special occasions only Substance Use Type: does not use Exam Narrative Exam Narrative: GENERAL: Alert and oriented x three, male in mild distress. HEENT: Head normocephalic, atraumatic, EOMI, pupils reactive, face symmetric, moist mucous membranes NECK: Supple, full range of motion CARDIOVASCULAR: Regular rate and rhythm without murmurs, rubs or gallops. RESPIRATORY: Breath sounds equal bilaterally, no wheezes rales or rhonchi. ABDOMEN: Soft, nontender. Normoactive bowel sounds all 4 quadrants. No guarding or rebound, rigidity, no mass EXTREMITIES: Normal range of motion, no clubbing. Bilateral pedal edema. Patient does not have any bony tenderness except over the upper thigh on the lateral side. Appears to be more soft tissue I am not able to palpate any obvious hematoma but patient is tender short of over the ITB band region. He does not appear to have any bony tenderness over the greater trochanter. He is able to lift his leg off the bed and move it. He has cap refill less than 2 seconds in bilateral lower extremities. Sensation throughout. No obvious ecchymosis or skin changes appreciated. No swelling, warmth or erythema or fluctuance or area of tenderness. NEUROLOGICAL: Cranial nerves II through XII grossly intact. Moving all extremities SKIN: Warm, dry, no petechiae, no rashes or lesions. Initial Vital Signs Initial Vital Signs: Vital Signs Temperature 97.6 F 03/11/21 08:57 Pulse Rate 59 L 03/11/21 08:57 Respiratory Rate 14 03/11/21 08:57 Blood Pressure 103/57 L 03/11/21 08:57 Pulse Oximetry 98 03/11/21 08:57 Course Orders Ordered: ED Orders 03/11/21 09:34 US periph venous low extrem rt Stat XR hip w pel if done RT 2V Stat 03/11/21 09:53 BMP [Basic Metabolic Panel] Stat CBC Auto Diff [Complete Blood Count AUTO DIFF] Stat PTT [Partial Thromboplastin Time] Stat Prothrombin Time INR Stat Vital Signs Vital signs: Vital Signs - 8 hr 03/11/21 08:57 03/11/21 10:34 Temperature 97.6 F 98.0 F Pulse Rate 59 L 60 Respiratory Rate 14 17 Blood Pressure 103/57 L 140/67 Pulse Oximetry 98 97 MDM - Extremity (Nontraumatic) Lab Data Result diagrams: 03/11/21 09:53 03/11/21 09:53 Labs: Lab Results 03/11/21 03/11/21 03/11/21 Range/Units 09:53 09:53 09:53 WBC 3.3 L (4.5-11.0) X10^3/uL RBC 2.91 L (4.5-5.9) X10^6/uL Hgb 9.9 L (13.5-17.5) g/dL Hct 27.7 L (41-53) % MCV 95.3 (80-100) fL MCH 33.9 (26-34) PG MCHC 35.6 (30-36) % RDW 15.2 H (11.6-14.8) % Plt Count 79 L (150-400) X10^3/uL Neut % (Auto) Not Reportable Lymph % (Auto) Not Reportable [place] % (Auto) Not Reportable Eos % (Auto) Not Reportable Baso % (Auto) Not Reportable Lymph # (Auto) Not Reportable [place] # (Auto) Not Reportable Baso # (Auto) Not Reportable Total Counted 100 Seg Neutrophils % 37.0 L (38-70) % Band Neutrophils % 3.0 (3-7) % Lymphocytes % (Manual) 45.0 (25-45) % Monocytes % (Manual) 14.0 H (2-11) % Basophils % (Manual) 1.0 (0-1) % Neutrophils # (Manual) 1320 L (5591-5463) /uL RBC Morphology See below Anisocytosis 1+ H PT 13.7 H D (10.1-12.7) SECONDS INR 1.2 (0.9-1.3) APTT 38 H (26.4-36.2) SECONDS Sodium 136 L (137-145) mmol/L Potassium 4.6 (3.4-5.1) mmol/L Chloride 105 (98-107) mmol/L Carbon Dioxide 28 (22-32) mmol/L BUN 23 H (9-20) mg/dL Creatinine 1.50 H (0.66-1.25) mg/dL Estimated GFR 44.9 L (>60) mL/min BUN/Creatinine Ratio 15.3 (6-22) Glucose 115 H (80-110) mg/dL Calcium 9.2 (8.4-10.2) mg/dL MDM Narrative Medical decision making narrative: 81-year-old male with right thigh pain. Patient has a history of metastatic cancer. Nothing obvious on x-ray, no DVT on ultrasound. I am able to reproduce pain with palpation of the soft tissue on the outer lateral thigh but no clear signs of infection or other causes locally no hematoma appreciated. Patient has lab abnormalities but are fairly baseline he should have his hemoglobin rechecked. Patient does complain of some restless leg symptoms as well discussed adding some gabapentin to see if this is helpful he does take pain medication prior to sleep. He is asymptomatic and terms of pain currently in the department. All questions answered with himself and his at bedside. Discharge Plan Departure Patient Disposition: Home Clinical Impression: Leg pain, right Instructions: DI for Leg Pain Activity Restrictions/Additional Instructions: Follow-up with your physician for recheck. Your x-ray imaging, ultrasound today do not show any obvious changes to the bone home or blood clots. He do seem to be more tender on the outer thigh but there is no obvious changes to the skin or soft tissue. If you continue to have persistent pain more detailed imaging may be helpful to check for any bone metastases that could be causing pain. Please continue home medications as prescribed. Follow-up with your physician to have your hemoglobin rechecked. You may try gabapentin for your restless leg syndromes to see if this is helpful. This can be titrated upwards by your physician. This medication can make individual sleepy so use with caution with other medications. Prescription sent to [facility] in [place] Please return for fevers, worsening symptoms, loss of sensation, inability to walk or ambulate, new skin changes such as warmth, erythema or swelling, bruising or other new or concerning symptoms. Prescriptions: New gabapentin 100 mg capsule 100 mg PO BEDTIME Qty: 20 0RF No Action atorvastatin [Lipitor] 40 MG tablet 40 mg PO BEDTIME Qty: 0 0RF Xarelto 20 mg Tablet 20 mg PO DAILY Qty: 90 0RF Rx Instructions: 1 tab daily for DVT losartan 50 mg Tablet 50 mg PO DAILY 0RF furosemide 20 mg Tablet 20 mg PO DAILY PRN (Reason: Edema) 0RF carvedilol 25 mg Tablet 25 mg PO BID 0RF minoxidil 10 mg Tablet 5 mg PO DAILY 0RF oxycodone-acetaminophen 5-325 mg Tablet 1 tab PO Q6H PRN (Reason: right shoulder pain, prostate cancer) Qty: 60 0RF potassium chloride 10 mEq Tablet Extended Release 10 meq PO DAILY 0RF (DME) Respironics Dreamstation BIPAP Qty: 1 0RF Dose Instruction: As directed Label Comments: Pressure: IPAP 12 EPAP 8 DME: [facility] Rx Instructions: As directed potassium citrate 10 mEq (1,080 mg) tablet extended release 10 meq PO TID Qty: 270 3RF Referrals: Gurdeep Cameron MD [Primary Care Provider] -
--- NOTE | 2021-03-11 09:34 | DI.US.S_ITS ---
PROCEDURE: US PERIPH VENOUS LOW EXTREM RT INDICATIONS: right leg pain, swelling TECHNIQUE: Real-time imaging, as well as color and pulse Doppler interrogation, were performed of the lower extremity deep veins from the inguinal ligament to the popliteal fossa. COMPARISON: None. FINDINGS: The common femoral, femoral and popliteal veins are normally compressible, and free of intraluminal thrombus. Color and pulse Doppler demonstrate normal phasic intraluminal flow. There is normal augmentation response to distal compression maneuver. IMPRESSION: No sonographic evidence of deep venous thrombosis in the right lower extremity. Dictated by: Scott Villar M.D. on 03/11/2021 at 10:12 Approved by: Scott Villar M.D. on 03/11/2021 at 10:13
--- NOTE | 2021-03-11 09:34 | DI.RAD.S_ITS ---
PROCEDURE: XR HIP W PEL IF DONE RT 2V INDICATIONS: right thigh/hip pain TECHNIQUE: AP pelvis with lateral view(s) of the right hip(s). COMPARISON: [facility], CT, CT CHEST ABD PEL W CON, 12/29/2017, 12:13. [facility], CR, XR KUB, 07/02/2019, 14:18. [facility], CR, XR HIP W PEL IF DONE RT 2V, 09/07/2020, 15:44. FINDINGS: Bones: No definite acute fracture although exam sensitivity limited by vascular calcifications and overlying projectional artifact. Mild bilateral hip joint degeneration. Lumbar spondylosis and facet disease. Sclerotic lesion measuring 1.5 cm in the intertrochanteric left femur, technically nonspecific. However this is unchanged since 12/29/17. Soft tissues: Numerous bilateral scattered vascular calcifications. IMPRESSION: No definite acute findings. If the patient's pain or other symptoms persist, consider further evaluation with MRI Dictated by: Israel Hicks M.D. on 03/11/2021 at 10:51 Approved by: Israel Hicks M.D. on 03/11/2021 at 10:54
[2021-03-11 10:06] LABS: Add Manual Diff / Slide Review YES; Hematocrit 27.7 % (41-53); Hemoglobin 9.9 g/dL (13.5-17.5); Mean Corpuscular HGB Conc 35.6 % (30-36); Mean Corpuscular Hemoglobin 33.9 PG (26-34); Mean Corpuscular Volume 95.3 fL (80-100); Platelet Count 79 X10^3/uL (150-400); Red Blood Cell Count 2.91 X10^6/uL (4.5-5.9); Red Cell Distribution Width 15.2 % (11.6-14.8); White Blood Cell Count 3.3 X10^3/uL (4.5-11.0)
[2021-03-11 10:10] LABS: INR 1.2 (0.9-1.3); Prothrombin Time 13.7 SECONDS (10.1-12.7)
[2021-03-11 10:13] LABS: PTT Partial Thromboplastin Tim 38 SECONDS (26.4-36.2)
[2021-03-11 10:20] LABS: BUN Creatinine Ratio 15.3 (6-22); Blood Urea Nitrogen 23 mg/dL (9-20); Calcium 9.2 mg/dL (8.4-10.2); Carbon Dioxide 28 mmol/L (22-32); Chloride 105 mmol/L (98-107); Estimated Glomerular Filt Rate 44.9 mL/min (>60); Glucose 115 mg/dL (80-110); HEMOLYSIS < 15 (0-50); Potassium 4.6 mmol/L (3.4-5.1); Sodium 136 mmol/L (137-145)
[2021-03-11 10:34] VITALS: BP 140/67; PULSE 60; RESP 17; TEMP 36.7; O2SAT 97
[2021-03-11 10:43] LABS: Neutrophils Absolute Manual 1320 /uL (3000-5900); Total Cells Counted 100
[2021-03-11 10:44] LABS: Anisocytosis 1+
[2021-03-11 11:25] VITALS: BP 172/76; PULSE 65; RESP 16; O2SAT 100
== END 2021-03-11 11:43 | disposition home or self-care (01) ==
PROVIDERS: Emergency Provider Emergency Medicine; PCP Internal Medicine
DX: M79.651 Pain in right thigh (principal); F17.200 Nicotine dependence, unspecified, uncomplicated; Z79.01 Long term (current) use of anticoagulants
CPT/HCPCS: 73502; 80048; 85007; 85025; 85610; 85730; 93971; 99283; 99284